=== PATIENT | male | born 1950 | race Caucasian/White ===

== ENCOUNTER 2017-03-01 13:01 | Emergency (ER) | payer MEDICARE, OTHER ==
[2017-03-01] MEDS ORDERED: SODIUM CHLORIDE 0.9% 1,000 ML IV ONE (13:33)
[2017-03-01 13:36] LABS: Glucose,Whole Blood 121 mg/dL (75-99)
--- NOTE | 2017-03-01 13:38 | ED ---
Fall HPI - General Chief Complaint: Fall Stated Complaint: syncope Time Seen by Provider: 03/01/17 13:27 Source: patient, EMS Mode of arrival: EMS - History of Present Illness Initial Comments: He fell today, he hit his head and then he passed out he was on his way to [employer] actually this is when he fell then he threw up on himself. He denies any palpitation he denies any chest pain no shortness of breath now complaining about the pain in the cervical spine area no other injuries from the fall no injuries to the back or upper extremity or the lower extremity. He has a history of passing out similarly in the past right now has some mom headache and the neck pain apart from that no other complaints at all - Related Data Home Medications Medication Instructions Recorded Confirmed No Known Home Medications [No 03/01/17 03/01/17 Known Home Medications] Allergies Allergy/AdvReac Type Severity Reaction Status Date / Time No Known Allergies Allergy Verified 03/01/17 14:04 Review of Systems ROS Statement: Those systems with pertinent positive or pertinent negative responses have been documented in the HPI. ROS Other: All systems not noted in ROS Statement are negative. Past Medical History Past Medical History: No Reported History History of Any Multi-Drug Resistant Organisms: None Reported Past Surgical History: Orthopedic Surgery Additional Past Surgical History / Comment(s): wrist surgery Past Psychological History: No Psychological Hx Reported Smoking Status: Never smoker Past Alcohol Use History: None Reported Past Drug Use History: None Reported General Exam - General Exam Comments Initial Comments: General: The patient is awake and alert, in no distress, and does not appear acutely ill. GCS is 15 Skin: Skin is warm and dry and no rashes or lesions are noted. Eye: Pupils are equal, round and reactive to light, extra-ocular movements are intact; there is normal conjunctiva bilaterally. Ears, nose, mouth and throat: There are moist mucous membranes and no oral lesions. Neck: The neck is tender at C5 and C6, no scalp laceration noticed no hematoma no ecchymosis Cardiovascular: There is a regular rate and rhythm. No murmur, rub or gallop is appreciated. Respiratory: To auscultation bilateral, no wheezing no rhonchi no distress respiratory castellon noticed Gastrointestinal: Soft, non-distended, non-tender abdomen without masses or organomegaly noted. There is no rebound or guarding present. Bowel sounds are unremarkable. Back: There is no tenderness to palpation in the midline. There is no obvious deformity. Musculoskeletal: Normal ROM, no tenderness, There is no pedal edema. There is no calf tenderness or swelling. No cords were appreciated. Neurological: CN II-XII intact, Cranial nerves III through XII are intact. There are no obvious motor or sensory deficits. Coordination appears grossly intact. Speech is normal. Psychiatric: Cooperative, appropriate mood & affect, normal judgment. Limitations: no limitations Course Vital Signs 03/01/17 03/01/17 03/01/17 13:08 13:48 14:55 Temperature 97.5 F L Pulse Rate 89 90 91 Respiratory 16 18 18 Rate Blood Pressure 114/60 112/58 125/71 O2 Sat by Pulse 99 98 97 Oximetry 03/01/17 03/01/17 15:48 17:47 Temperature 97.6 F 98.0 F Pulse Rate 93 85 Respiratory 16 16 Rate Blood Pressure 143/88 138/78 O2 Sat by Pulse 100 100 Oximetry Him EKG is normal sinus rhythm ventricular rate is 90 AK interval is 162 QRS duration is 96 QT/QTc QTc is 380/12/26/[address] elevations sort of picture into 3 and aVF and then on now D5 V4 and V6 but is very similar to his old EKG and patient himself has no chest pain Mid CT CT of cervical spine CBC, troponin those were all negative he feels better, he was advised to make sure he keeps himself well hydrated there is no orthostatic hypotension education and counseling was done he be discharged home to follow up with his family doctor Medical Decision Making - Lab Data Result diagrams: 03/01/17 13:17 03/01/17 13:17 Lab Results 03/01/17 03/01/17 03/01/17 Range/Units 13:16 13:17 13:17 WBC 6.4 (3.8-10.6) k/uL RBC 4.73 (4.30-5.90) m/uL Hgb 15.1 (13.0-17.5) gm/dL Hct 43.6 (39.0-53.0) % MCV 92.0 (80.0-100.0) fL MCH 31.8 (25.0-35.0) pg MCHC 34.6 (31.0-37.0) g/dL RDW 13.4 (11.5-15.5) % Plt Count 250 (150-450) k/uL Neutrophils % 67 % Lymphocytes % 25 % Monocytes % 4 % Eosinophils % 1 % Basophils % 1 % Neutrophils # 4.2 (1.3-7.7) k/uL Lymphocytes # 1.6 (1.0-4.8) k/uL Monocytes # 0.2 (0-1.0) k/uL Eosinophils # 0.1 (0-0.7) k/uL Basophils # 0.0 (0-0.2) k/uL Sodium 138 (137-145) mmol/L Potassium 4.4 (3.5-5.1) mmol/L Chloride 103 (98-107) mmol/L Carbon Dioxide 18 L (22-30) mmol/L Anion Gap 17 mmol/L BUN 17 (9-20) mg/dL Creatinine 0.80 (0.66-1.25) mg/dL Est GFR (MDRD) Af Amer >60 (>60 ml/min/1.73 sqM) Est GFR (MDRD) Non-Af >60 (>60 ml/min/1.73 sqM) Glucose 121 H (74-99) mg/dL POC Glucose (mg/dL) 121 H (75-99) mg/dL POC Glu Communication Engineer ID Yvonne Jasso Calcium 9.8 (8.4-10.2) mg/dL Total Bilirubin 1.4 H (0.2-1.3) mg/dL AST 29 (17-59) U/L ALT 33 (21-72) U/L Alkaline Phosphatase 81 (38-126) U/L Troponin I (0.000-0.034) ng/mL Total Protein 7.8 (6.3-8.2) g/dL Albumin 4.7 (3.5-5.0) g/dL 03/01/17 Range/Units 13:17 WBC (3.8-10.6) k/uL RBC (4.30-5.90) m/uL Hgb (13.0-17.5) gm/dL Hct (39.0-53.0) % MCV (80.0-100.0) fL MCH (25.0-35.0) pg MCHC (31.0-37.0) g/dL RDW (11.5-15.5) % Plt Count (150-450) k/uL Neutrophils % % Lymphocytes % % Monocytes % % Eosinophils % % Basophils % % Neutrophils # (1.3-7.7) k/uL Lymphocytes # (1.0-4.8) k/uL Monocytes # (0-1.0) k/uL Eosinophils # (0-0.7) k/uL Basophils # (0-0.2) k/uL Sodium (137-145) mmol/L Potassium (3.5-5.1) mmol/L Chloride (98-107) mmol/L Carbon Dioxide (22-30) mmol/L Anion Gap mmol/L BUN (9-20) mg/dL Creatinine (0.66-1.25) mg/dL Est GFR (MDRD) Af Amer (>60 ml/min/1.73 sqM) Est GFR (MDRD) Non-Af (>60 ml/min/1.73 sqM) Glucose (74-99) mg/dL POC Glucose (mg/dL) (75-99) mg/dL POC Glu Communication Engineer ID Calcium (8.4-10.2) mg/dL Total Bilirubin (0.2-1.3) mg/dL AST (17-59) U/L ALT (21-72) U/L Alkaline Phosphatase (38-126) U/L Troponin I <0.012 (0.000-0.034) ng/mL Total Protein (6.3-8.2) g/dL Albumin (3.5-5.0) g/dL Disposition Clinical Impression: Fall, Head injury, Neck injury, Syncope Disposition: HOME SELF-CARE Instructions: Fall Prevention for Older Adults (ED) Referrals: Tony Vaughan DO [Primary Care Provider] - 1-2 days
[2017-03-01 13:51] LABS: Basophils % (A) 1 %; CH 31.8; CHCM 34.7; Eosinophils # (A) 0.1 k/uL (0-0.7); Eosinophils % (A) 1 %; HCT 43.6 % (39.0-53.0); HDW 2.37; HGB 15.1 gm/dL (13.0-17.5); Luc # (Auto) 0.18; Luc % (Auto) 3; Lymphocytes # (A) 1.6 k/uL (1.0-4.8); Lymphocytes % (A) 25 %; MCH 31.8 pg (25.0-35.0); MCHC 34.6 g/dL (31.0-37.0); Mean Platelet Volume 7.4; Monocytes # (A) 0.2 k/uL (0-1.0); Monocytes % (A) 4 %; Neutrophils # (A) 4.2 k/uL (1.3-7.7); Neutrophils % (A) 67 %; RBC 4.73 m/uL (4.30-5.90); RDW 13.4 % (11.5-15.5); WBC 6.4 k/uL (3.8-10.6); WBC (Perox) 5.93
[2017-03-01 14:21] LABS: ALT 33 U/L (21-72); AST 29 U/L (17-59); Alkaline Phosphatase 81 U/L (38-126); Anion Gap 17 mmol/L; Blood Urea Nitrogen 17 mg/dL (9-20); Calcium 9.8 mg/dL (8.4-10.2); Carbon Dioxide 18 mmol/L (22-30); Chloride 103 mmol/L (98-107); Glucose 121 mg/dL (74-99); Non-African American GFR(MDRD) >60 (>60 ml/min/1.73 sqM); Sodium 138 mmol/L (137-145); Total Bilirubin 1.4 mg/dL (0.2-1.3); Total Protein 7.8 g/dL (6.3-8.2)
--- NOTE | 2017-03-01 14:32 | CT ---
EXAMINATION TYPE: CT brain alyssa valdes DATE OF EXAM: 03/01/2017 COMPARISON: NONE HISTORY: Fall injury today with headache and neck pain. CT DLP: 1326.50 mGycm. Automated Exposure Control for Dose Reduction was Utilized. TECHNIQUE: CT scan of the head and cervical spine are performed without contrast. FINDINGS: There is no acute intracranial hemorrhage, mass effect, or midline shift identified. The ventricles and sulci are within normal limits in size for patient's age. There is small to moderate -sized right parietal acute scalp hematoma near axial image 42. Adjacent calvarium is intact. The florencio bes are intact and the visualized sinuses are clear. There is moderate mucosal thickening involving e thmoid sinuses. Remainder of paranasal sinuses are clear. The globes are intact bilaterally. Cervical spine is visualized in its entirety from C1 through upper thoracic levels and demonstrates s traightened alignment without evidence of acute fracture or dislocation. Prevertebral soft tissue ap pears within normal limits. The C1-C2 articulation is within normal limits on the coronal images. Vertebral body heights are maintained. There is mild spurring and disc space narrowing C5-C6 level. T here is mild to moderate spurring and disc space narrowing C6-C7 level. Review of axial images show s ome multilevel right-sided uncovertebral facet degenerative changes. Visualized lung apices are clear . IMPRESSION: 1. There is no acute fracture or dislocation evident in the cervical spine. 2. No acute intracranial hemorrhage or midline shift is seen. Small to moderate size acute left parie saulo scalp hematoma incidentally noted.
[2017-03-01 14:38] LABS: Potassium 4.4 mmol/L (3.5-5.1)
--- NOTE | 2017-03-01 15:23 | XR ---
EXAMINATION TYPE: XR chest 2V DATE OF EXAM: 03/01/2017 COMPARISON: NONE HISTORY: Fall injury and syncope with pain. TECHNIQUE: Frontal and lateral views of the chest are obtained. FINDINGS: Underlying emphysematous change is felt present. There is no focal air space opacity, pleu ral effusion, or pneumothorax seen. The cardiac silhouette size is upper limits of normal. Multileve l minimal spurring in thoracic spine is present. IMPRESSION: Chronic changes without acute pulmonary process.
[2017-03-01 15:49] VITALS: RESP 16
[2017-03-01 17:51] VITALS: BP 138/78; PULSE 85; TEMP 98
== END 2017-03-01 18:25 | disposition home or self-care (01) ==
LOC: EC 13:01
DX: S09.90XA Unspecified injury of head, initial encounter (principal); S19.9XXA Unspecified injury of neck, initial encounter; R55 Syncope and collapse; R51 Headache; M54.2 Cervicalgia; W01.10XA Fall on same level from slipping, tripping and stumbling with subsequent striking against unspecified object, initial encounter; Y92.89 Other specified places as the place of occurrence of the external cause
CPT/HCPCS: 36415; 70450; 71020; 72125; 80053; 84484; 85025; 93005; 96360; 99284

== ENCOUNTER 2017-09-11 06:21 | Day surgery (SDC) | payer MEDICARE, OTHER ==
[2017-09-09 10:58] VITALS: BMI 32.5
[~2017-09-11 06:21] MED LIST: ALPRAZolam 0.25 MG TAB PO PRN; ALPRAZolam 0.5 MG TAB PO PRN; ASPIRIN 325 MG TAB PO STA; ATORVASTATIN 80 MG TAB PO STA; NITROGLYCERIN SL TABS 0.4 MG TAB SUBLINGUAL PRN; SODIUM CHLORIDE 0.9% 1,000 ML in EMPTY BAG 1 BAG IV ONE
[2017-09-11 07:05] VITALS: BP 158/83; PULSE 77; RESP 20; TEMP 97.9
== END 2017-09-11 09:20 | disposition home or self-care (01) ==
LOC: CATHCVL 06:21
PROVIDERS: ATTEND Internal Medicine Interventional Cardiology
DX: I25.10 Atherosclerotic heart disease of native coronary artery without angina pectoris (principal)

== ENCOUNTER 2017-09-12 06:31 | Day surgery (SDC) | payer MEDICARE, OTHER ==
[2017-09-12] MEDS ORDERED: ASPIRIN 325 MG TAB PO STA (06:33)
[2017-09-12] MEDS ORDERED: ALPRAZolam 0.25 MG TAB PO PRN (06:33)
[2017-09-12] MEDS ORDERED: ATORVASTATIN 80 MG TAB PO STA (06:33)
[2017-09-12] MEDS ORDERED: SODIUM CHLORIDE 0.9% 1,000 ML in EMPTY BAG 1 BAG IV ONE (06:33)
[2017-09-12] MEDS ORDERED: NITROGLYCERIN SL TABS 0.4 MG TAB SUBLINGUAL PRN (06:33)
[2017-09-12] MEDS ORDERED: ALPRAZolam 0.5 MG TAB PO PRN (06:33)
[2017-09-12] MEDS ORDERED: MIDAZOLAM 2 MG/2 ML VIAL ONE (07:21)
[2017-09-12] MEDS ORDERED: LIDOCAINE 2% INJ 20 MG/ML (20 ML MDV) ONE (07:21)
[2017-09-12] MEDS ORDERED: diphenhydrAMINE 50 MG/ML 1 ML VIAL ONE (07:21)
[2017-09-12] MEDS ORDERED: SODIUM CHLORIDE 0.9% 1,000 ML IV ONE (07:39)
[2017-09-12] MEDS ORDERED: diphenhydrAMINE 50 MG/ML 1 ML VIAL IVP ONE (07:51)
[2017-09-12] MEDS ORDERED: MIDAZOLAM 2 MG/2 ML VIAL IVP ONE (07:51)
[2017-09-12] MEDS ORDERED: LIDOCAINE 2% INJ 20 MG/ML SQ ONE ×2 (07:54)
[2017-09-12] MEDS ORDERED: fentaNYL (PF) 50 MCG/ML 2 ML AMP ONE (07:57)
[2017-09-12] MEDS: fentaNYL (PF) 50 MCG/ML 2 ML AMP IVP ONE ×2 (07:58→08:48)
[2017-09-12] MEDS ORDERED: BIVALIRUDIN BOLUS 250 MG/50 ML IV ONE (07:59)
[2017-09-12] MEDS ORDERED: BIVALIRUDIN 250 MG in SODIUM CHLORIDE 0.9% 50 ML IV ONE ×2 (08:00→08:36)
[2017-09-12] MEDS: NITROGLYCERIN 1000MCG/10ML SYRINGE INTRACORON ONE ×4 (08:11→08:42)
[2017-09-12] MEDS ORDERED: niCARdipine 25 MG/10 ML VIAL ONE (08:11)
[2017-09-12] MEDS ORDERED: CLOPIDOGREL 75 MG TAB ONE (08:46)
[2017-09-12] MEDS ORDERED: CLOPIDOGREL 75 MG TAB PO ONE (08:55)
[2017-09-12] MEDS ORDERED: IOHEXOL 350 MG/ML 125ML BOTTLE INJ ONE (08:55)
[2017-09-12] MEDS ORDERED: NITROGLYCERIN 0.4 MG SUBLINGUAL PRN (09:10)
--- NOTE | 2017-09-12 09:47 | LTR ---
September 12, 2017 Re: Daniel Pyle Dear Tony: Mr. Daniel Pyle underwent successful angioplasty and stenting of the mid LAD with good angiographic results and without any complication. I want to thank you for allowing me to participate in his care and please do not hesitate to call if you have any question or concern. Sincerely, MD LINDA Esquivel / [place]: [id number] /
--- NOTE | 2017-09-12 11:23 | PTCA ---
PERCUTANEOUSTRANS CORORONARY ANGIOGRAPHY DATE OF SERVICE: 09/12/2017 PERFORMING PHYSICIAN: Carlos Guillen MD, account relationship manager. PROCEDURE PERFORMED: Successful stenting of the mid to distal LAD using 2.25 x 12 mm Promus Premier drug- eluting stent with good angiographic results. INDICATION: This is a pleasant 67-year-old gentleman who presented to the hospital a few weeks ago with acute inferior ST-elevation myocardial infarction and underwent a heart catheterization at that point and stenting of the left circumflex, which was the culprit lesion. He was found to have severe disease involving the mid to distal LAD and he was brought today for intervention on the LAD. APPROACH: Right common femoral artery. COMPLICATION: None. LEVEL OF SEDATION: Moderate with a sedation length of 67 minutes. PROCEDURE DESCRIPTION: After obtaining an informed consent, the patient was brought to cardiac refuse laborer. The right common femoral artery was cannulated using micropuncture technique, the micropuncture wire passed easily then I placed a 6-Indonesian sheath in the right common femoral artery. After that anticoagulation was initiated using Angiomax. I took an XB3.5 LAD guide and the left main was engaged. A whisper wire was used to wire the LAD, but I was unable to cross the critical lesion in the mid to distal LAD using the whisper wire and I ended with dissection in that segment where the patient did not have any chest discomfort, but about [address]-segment elevation in the anterior leads. Finally I was able to cross it using a choice PT wire with the backup support of 45 angled Supercross catheter. After that I did balloon angioplasty of the LAD using 2.0 x 12 mm balloon. Subsequently, I tried to advance 2.25 x 12 mm Promus Premier drug-eluting stent but the stent will not make the turn in the proximal LAD because of the tortuosity and calcifications. I was able to get the stent with adjunctive use of the Guidezilla. The stent was positioned under fluoroscopy guidance and deployed under 12 atmospheres for 20 seconds. The following angiogram showed good angiographic results without perforation and without dissection with good flow n the LAD. The procedure was completed without any complication. POSTPROCEDURE MANAGEMENT: 1. Dual anti-platelet therapy. 2. Risk factors modifications. 3. Follow up with the patient. MMODL / IJN: [id number] /
[2017-09-12] MEDS ORDERED: ATORVASTATIN 80 MG TAB ONE ×2 (20:30→20:33)
[2017-09-12] MEDS ORDERED: METOPROLOL TARTRATE 25 MG TAB ONE (20:30)
[2017-09-13] MEDS: METOPROLOL TARTRATE 25 MG TAB PO SCH ×2 (00:23→08:07)
[2017-09-13 06:48] LABS: Basophils # (A) 0.1 k/uL (0-0.2); Basophils % (A) 1 %; CH 31.1; CHCM 33.8; Eosinophils # (A) 0.2 k/uL (0-0.7); Eosinophils % (A) 3 %; HGB 13.2 gm/dL (13.0-17.5); Luc # (Auto) 0.17; Luc % (Auto) 2; Lymphocytes # (A) 1.6 k/uL (1.0-4.8); Lymphocytes % (A) 22 %; MCH 30.6 pg (25.0-35.0); MCHC 33.1 g/dL (31.0-37.0); MCV 92.5 fL (80.0-100.0); Mean Platelet Volume 6.6; Monocytes # (A) 0.4 k/uL (0-1.0); Monocytes % (A) 5 %; Neutrophils % (A) 67 %; RBC 4.32 m/uL (4.30-5.90); RDW 13.1 % (11.5-15.5); WBC 7.4 k/uL (3.8-10.6); WBC (Perox) 7.42
[2017-09-13 07:00] LABS: Anion Gap 9 mmol/L; Blood Urea Nitrogen 17 mg/dL (9-20); Calcium 9.4 mg/dL (8.4-10.2); Carbon Dioxide 29 mmol/L (22-30); Chloride 99 mmol/L (98-107); Glucose 92 mg/dL (74-99); Non-African American GFR(MDRD) >60 (>60 ml/min/1.73 sqM); Potassium 4.2 mmol/L (3.5-5.1); Sodium 137 mmol/L (137-145)
[2017-09-13] MEDS ORDERED: PANTOPRAZOLE 40 MG TABLET PO SCH (07:30)
[2017-09-13 07:57] VITALS: BP 132/87; PULSE 91; RESP 18; TEMP 97.6
[2017-09-13] MEDS ORDERED: CLOPIDOGREL 75 MG TAB PO SCH (09:00)
[2017-09-13] MEDS ORDERED: ASPIRIN 325 MG TAB PO SCH (09:00)
--- NOTE | 2017-09-13 09:56 | DS ---
DISCHARGE SUMMARY ADMISSION DATE: September 12, 2017. DISCHARGE DATE: September 13, 2017 BRIEF HISTORY: This is a pleasant 67-year-old gentleman who was admitted to the hospital yesterday and underwent successful balloon angioplasty and stenting of the mid LAD with good angiographic results and without any complication. The procedure was performed from the right groin which is soft and nontender and without any bruises. The patient is going to be discharged home on dual anti-platelet therapy and I will follow up with the patient next week in the office. MMODL / IJN: [id number] /
[2017-09-13] MEDS ORDERED: ATORVASTATIN 80 MG TAB PO SCH (21:00)
== END 2017-09-13 11:02 | disposition home or self-care (01) ==
LOC: CATHCVL 06:31 → 6SEL 08:50 → CATHCVL 09-13 11:02
PROVIDERS: ATTEND Internal Medicine Interventional Cardiology
DX: I25.10 Atherosclerotic heart disease of native coronary artery without angina pectoris (principal); I25.84 Coronary atherosclerosis due to calcified coronary lesion; I10 Essential (primary) hypertension; E78.5 Hyperlipidemia, unspecified; Z79.02 Long term (current) use of antithrombotics/antiplatelets; Z79.82 Long term (current) use of aspirin; Z79.899 Other long term (current) drug therapy
CPT/HCPCS: 80048; 85025; C9600; C1769 ×4; C1760 ×2; C1887 ×3; C1725; C1894 ×2; C1874; J2001; J2250; J1200; J3010; J0583; Q9967

== ENCOUNTER 2017-11-19 19:24 | Emergency (ER) | payer OTHER, MEDICARE ==
[2017-11-19 19:39] VITALS: RESP 18
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
--- NOTE | 2017-11-19 20:32 | XR ---
EXAMINATION TYPE: XR shoulder complete RT DATE OF EXAM: 11/19/2017 COMPARISON: NONE HISTORY: Shoulder pain TECHNIQUE: 3 views FINDINGS: There is slightly impacted fracture of the right humeral neck. There is no dislocation. Acr omioclavicular joint is intact. Scapula appears intact. IMPRESSION: Acute fracture of the right humeral neck.
[2017-11-19] MEDS ORDERED: IBUPROFEN 800 MG TAB PO STA (20:42)
[2017-11-19 20:59] VITALS: BP 130/62; PULSE 91; TEMP 98.5
== END 2017-11-19 20:58 | disposition home or self-care (01) ==
LOC: EC 19:24
DX: S42.291A Other displaced fracture of upper end of right humerus, initial encounter for closed fracture (principal); V77.5XXA Driver of bus injured in collision with fixed or stationary object in traffic accident, initial encounter; Y92.89 Other specified places as the place of occurrence of the external cause
CPT/HCPCS: 99284

== ENCOUNTER 2024-07-10 17:00 | Emergency (ER) | payer MEDICARE, OTHER ==
[2024-07-10 18:11] LABS: Basophils % (A) 0 %; Eosinophils # (A) 0.1 k/uL (0-0.7); Eosinophils % (A) 1 %; HCT 46.6 % (39.0-53.0); Lymphocytes # (A) 1.2 k/uL (1.0-4.8); Lymphocytes % (A) 14 %; MCH 30.4 pg (25.0-35.0); MCHC 32.2 g/dL (31.0-37.0); MCV 94.6 fL (80.0-100.0); Mean Platelet Volume 7.3; Monocytes # (A) 0.3 k/uL (0-1.0); Monocytes % (A) 3 %; Neutrophils # (A) 6.7 k/uL (1.3-7.7); Neutrophils % (A) 80 %; Platelet Count 333 k/uL (150-450); RBC 4.93 m/uL (4.30-5.90); RDW 13.5 % (11.5-15.5); WBC 8.4 k/uL (3.8-10.6)
[2024-07-10 18:20] LABS: Partial Thromboplastin Time 25.1 sec (22.0-30.0); Prothrombin Time 10.9 sec (10.0-12.5)
[2024-07-10 18:28] LABS: ALT 22 U/L (4-49); African American GFR (CKD) >90 (>60 ml/min/1.73 sqM); Albumin 4.4 g/dL (3.5-5.0); Alcohol <10 mg/dL; Anion Gap 13 mmol/L; Blood Urea Nitrogen 16 mg/dL (9-20); Calcium 9.5 mg/dL (8.4-10.2); Carbon Dioxide 26 mmol/L (22-30); Chloride 99 mmol/L (98-107); Creatine Kinase 56 U/L (55-170); Glucose 146 mg/dL (74-99); Non-African American GFR(CKD) 84 (>60 ml/min/1.73 sqM); Sodium 138 mmol/L (137-145); Total Bilirubin 1.5 mg/dL (0.2-1.3); Total Protein 7.9 g/dL (6.3-8.2)
[2024-07-10 18:31] LABS: Magnesium 1.9 mg/dL (1.6-2.3); Potassium 4.3 mmol/L (3.5-5.1)
[2024-07-10 18:32] LABS: AST 33 U/L (17-59); Alkaline Phosphatase 80 U/L (38-126)
--- NOTE | 2024-07-10 18:42 | CT ---
EXAMINATION TYPE: CT brain cspine wo con CT DLP: 1483.6 mGycm, Automated exposure control for dose reduction was used. DATE OF EXAM: 07/10/2024 6:12 PM COMPARISON: 03/01/2017 CLINICAL INDICATION: Male, 74 years old with history of syncope; Syncope. TECHNIQUE: Brain: Multiple axial CT images of the brain were obtained without IV contrast. Cspine: Axial CT images from the skull base to the inferior aspect of T2 we obtained without intraven ous contrast. Coronal and sagittal reformatted images were also reviewed. . FINDINGS: Brain: Extra-axial spaces: No abnormal extra-axial fluid collections. Ventricular system: Within normal limits Cerebral parenchyma: No acute intraparenchymal hemorrhage or mass effect. The arreola-white junction is well differentiated. Scattered hypoattenuating areas are seen within the white matter. Cerebellum: Unremarkable. Mass effect: No evidence of midline shift. Intracranial vasculature: Atherosclerotic calcifications of the intracranial vessels. Soft tissues: Normal. Calvarium/osseous structures: No depressed skull fracture. Paranasal sinuses and mastoid air cells: Clear. Visualized orbits: Orbital contents are intact. Cervical spine: Fracture: None. Osseous structures: Multilevel degenerative disc disease changes with endplate spurring and disc oste ophyte complex's. Vertebral alignment: Within normal limits. Spinal canal/Neural Foramina: No evidence of significant spinal canal narrowing. No evidence for sign ificant neural foraminal stenosis. Neck soft tissues: Prevertebral soft tissues are within normal limits. Other: The airway is patent. The lung apices are clear. IMPRESSION: 1. No acute intracranial process. 2. Nonspecific white matter changes, likely secondary to chronic small vessel ischemic disease. 3. No evidence of cervical spine fracture. 4. Mild to moderate multilevel degenerative disc disease. [facility], , 07/10/2024 6:40 PM
--- NOTE | 2024-07-10 18:42 | XR ---
EXAMINATION TYPE: XR chest 2V DATE OF EXAM: 07/10/2024 6:16 PM CLINICAL INDICATION: Male, 74 years old with history of syncope; [facility] COMPARISON: Chest radiographs from 03/01/2017 TECHNIQUE: XR chest 2V Frontal view of the chest. FINDINGS: Lungs/Pleura: There is no evidence of pleural effusion, focal consolidation, or pneumothorax. Pulmonary vascularity: Unremarkable. Heart/mediastinum: Cardiomediastinal silhouette is enlarged. Musculoskeletal: No acute osseous pathology. IMPRESSION: Low lung volumes with a generalized hazy appearance which could represent atelectasis versus pulmonar y edema correlate with serum BNP. [facility], , 07/10/2024 6:40 PM
[2024-07-10] MEDS: SODIUM CHLORIDE 0.9% 500 ML 500 ML IV STA (18:54)
[2024-07-10 19:06] LABS: Lactic Acid, Venous 2.6 mmol/L (0.7-2.0)
--- NOTE | 2024-07-10 19:19 | ED ---
Dizziness HPI - General Chief Complaint: Syncope Stated Complaint: Syncope,Back pain Time Seen by Provider: 07/10/24 17:13 Source: patient, EMS Mode of arrival: EMS Limitations: no limitations - History of Present Illness Initial Comments: 74-year-old male brought in after syncopal episode. Patient reports that he was walking home from [employer] when he started to feel dizzy. Difficult to determine if the patient then sat down or continued walking, however a syncopal episode did occur. Per EMS the patient was unconscious for less than a minute. Upon ar rival patient is very diaphoretic and has delayed answers, although he is able to answer appropriately. He is A and O x 3. He is generally weak. He denies any chest pain or difficulty breathing. States that he still a bit dizzy. He is also nauseous. No abdominal pain. No headache. No fever. - Related Data Previous Rx's Medication Instructions Recorded Aspirin 325 mg PO DAILY #30 tab 08/16/17 Atorvastatin [Lipitor] 80 mg PO HS #30 tab 08/16/17 Clopidogrel [Plavix] 75 mg PO DAILY #30 tab 08/16/17 Metoprolol Tartrate [Lopressor] 25 mg PO BID #60 tab 08/16/17 Nitroglycerin Sl Tabs [Nitrostat] 0.4 mg SUBLINGUAL Q5M PRN #20 tab 08/16/17 Pantoprazole [Protonix] 40 mg PO AC-BRKFST #30 tablet. 08/16/17 HYDROcodone/APAP 5-325MG [[place] 1 tab PO Q6HR PRN #12 tab 11/19/17 5-325] Ibuprofen [Motrin] 600 mg PO Q8HR PRN #24 tab 11/19/17 Allergies Allergy/AdvReac Type Severity Reaction Status Date / Time No Known Allergies Allergy Verified 11/19/17 19:56 Review of Systems ROS Statement: Those systems with pertinent positive or pertinent negative responses have been documented in the HPI. ROS Other: All systems not noted in ROS Statement are negative. Past Medical History Past Medical History: Myocardial Infarction (MT) Additional Past Medical History / Comment(s): 08/13/17 STEMI Last Myocardial Infarction Date:: 08/13/17 History of Any Multi-Drug Resistant Organisms: None Reported Past Surgical History: Appendectomy, Heart Catheterization With Stent Additional Past Surgical History / Comment(s): 08-13-17 HEART CATH W/ STENT TO LT CIRC. Past Anesthesia/Blood Transfusion Reactions: No Reported Reaction Date of Last Stent Placement:: 08/13/17 Past Psychological History: No Psychological Hx Reported Past Alcohol Use History: None Reported Past Drug Use History: None Reported - Past Family History Father History Unknown: Yes Mother History Unknown: Yes General Exam Limitations: no limitations General appearance: lethargic Head exam: Present: atraumatic, normocephalic, normal inspection Eye exam: Present: normal appearance, PERRL, EOMI. Absent: periorbital swelling Neck exam: Present: normal inspection. Absent: meningismus Respiratory exam: Present: normal lung sounds bilaterally. Absent: respiratory distress, wheezes, rales, rhonchi, stridor Cardiovascular Exam: Present: regular rate, normal rhythm, normal heart sounds. Absent: systolic murmur, diastolic murmur, rubs, gallop, clicks Neurological exam: Present: alert, oriented X3 (Slow to respond but can answer correctly) Expanded Eye Response: (3) open to voice Motor Response: (6) obeys commands Verbal Response: (5) oriented Skin exam: Present: diaphoretic Course Vital Signs 07/10/24 07/10/24 07/10/24 17:05 17:09 18:55 Temperature 97.8 F 97.8 F Pulse Rate 89 88 83 Respiratory 16 16 14 Rate Blood Pressure 107/64 105/62 124/75 O2 Sat by Pulse 95 97 98 Oximetry 07/10/24 22:17 Temperature 98.1 F Pulse Rate 100 Respiratory 18 Rate Blood Pressure 131/73 O2 Sat by Pulse 98 Oximetry Medical Decision Making - Medical Decision Making Was pt. sent in by a medical professional or institution (, PA, SURGEON ASSISTANT, urgent care, hospital, or shelter...) When possible be specific @ -No Did you speak to anyone other than the patient for history (EMS, parent, family, police, friend...)? What history was obtained from this source @ -No Did you review nursing and triage notes (agree or disagree)? Why? @ -I reviewed and agree with nursing and triage notes Were old charts reviewed (outside hosp., previous admission, EMS record, old EKG, old radiological studies, urgent care reports/EKG's, shelter records)? Report findings @ -No old charts were reviewed Differential Diagnosis (chest pain, altered mental status, abdominal pain women, abdominal pain men, vaginal bleeding, weakness, fever, dyspnea, syncope, headache, dizziness, GI bleed, back pain, seizure, CVA, palpatations, mental health, musculoskeletal)? @ -MDM Differential Syncope: Valvular disease, hypertrophic cardiomyopathy, pulmonary embolism, tamponade, tachycardia, bradycardia, MT, hypovolemia, hemorrhage, dissection, anemia, intracranial hemorrhage, seizure, hypoglycemia, carbon monoxide poisoning this is not meant to be an all-inclusive list. EKG interpreted by me (3pts min.). @ -EKG shows sinus rhythm ventricular rate 85. AL interval 177. QRS 114. QT 380. QTc 423. X-rays interpreted by me (1pt min.). @ -Chest x-ray shows low lung volumes with a generalized hazy appearance which could represent atelectasis versus pulmonary edema CT interpreted by me (1pt min.). @ -CT shows no acute intracranial process. Nonspecific white matter changes likely secondary to chronic small vessel ischemic disease. No evidence of cervical spine fracture. Mild to moderate multilevel degenerative disc disease. U/S interpreted by me (1pt. min.). @ -None done What testing was considered but not performed or refused? (CT, X-rays, U/S, labs)? Why? @ -None What meds were considered but not given or refused? Why? @ -None Did you discuss the management of the patient with other professionals (professionals i.e. , PA, SURGEON ASSISTANT, lab, RT, psych nurse, social insurance specialist, upsetting machine operator, teacher, property officer, upper caser)? Give summary @ -No Was smoking cessation discussed for >3mins.? @ -No Was critical care preformed (if so, how long)? @ -No Were there social determinants of health that impacted care today? How? (Homelessness, low income, unemployed, alcoholism, drug addiction, transportation, low edu. Level, literacy, decrease access to med. care, retirement, rehab)? @ -No Was there de-escalation of care discussed even if they declined (Discuss DNR or withdrawal of care, Hospice)? DNR status @ -No What co-morbidities impacted this encounter? (DM, HTN, Smoking, COPD, CAD, Cancer, CVA, ARF, Chemo, Hep., AIDS, mental health diagnosis, sleep apnea, morbid obesity)? @ -None Was patient admitted / discharged? Hospital course, mention meds given and route, prescriptions, significant lab abnormalities, going to OR and other pertinent info. @ -74-year-old male presenting for evaluation after syncopal episode. During the initial examination the patient is slow to respond but answers appropriately. He is also generally weak. Started on IV fluids. No leukocytosis or anemia. Lactic acid 2.6 and ketones 1+, patient is receiving IV fluids. Negative urine toxicology and serum alcohol. Negative for influenza, RSV, COVID. Chest x-ray showed haziness but BNP is 180 and troponin is negative, does not appear consistent with CHF. Patient's vital signs are stable. Ammonia and creatinine kinase are WNL. CT shows no acute intracranial process or cervical spine fracture. On reassessment the patient is feeling much better. He is sitting up in a chair, conversing much easier, he is able to ambulate with his cane and no further assistance. He feels well and would like to go home. He is educated on today's findings. Discharged. Follow-up with PCP. Report back to ER with any new or worsening symptoms. Discussed return parameters and answered all questions. Patient conveyed verbal understanding and agreed to the plan. I discussed this case in detail with my attending Dr. Henderson Undiagnosed new problem with uncertain prognosis? @ -No Drug Therapy requiring intensive monitoring for toxicity (Heparin, Nitro, Insulin, Cardizem)? @ -No Were any procedures done? @ -No Diagnosis/symptom? @ -Dehydration, syncopal episode Acute, or Chronic, or Acute on Chronic? @ -Acute Uncomplicated (without systemic symptoms) or Complicated (systemic symptoms)? @ -Complicated Side effects of treatment? @ -No Exacerbation, Progression, or Severe Exacerbation? @ -No - Lab Data Result diagrams: 07/10/24 17:58 07/10/24 17:58 Lab Results 07/10/24 07/10/24 07/10/24 Range/Units 17:58 17:58 17:58 WBC 8.4 (3.8-10.6) k/uL RBC 4.93 (4.30-5.90) m/uL Hgb 15.0 (13.0-17.5) gm/dL Hct 46.6 (39.0-53.0) % MCV 94.6 (80.0-100.0) fL MCH 30.4 (25.0-35.0) pg MCHC 32.2 (31.0-37.0) g/dL RDW 13.5 (11.5-15.5) % Plt Count 333 (150-450) k/uL MPV 7.3 Neutrophils % 80 % Lymphocytes % 14 % Monocytes % 3 % Eosinophils % 1 % Basophils % 0 % Neutrophils # 6.7 (1.3-7.7) k/uL Lymphocytes # 1.2 (1.0-4.8) k/uL Monocytes # 0.3 (0-1.0) k/uL Eosinophils # 0.1 (0-0.7) k/uL Basophils # 0.0 (0-0.2) k/uL PT 10.9 (10.0-12.5) sec INR 1.0 (<1.2) APTT 25.1 (22.0-30.0) sec Sodium 138 (137-145) mmol/L Potassium 4.3 (3.5-5.1) mmol/L Chloride 99 (98-107) mmol/L Carbon Dioxide 26 (22-30) mmol/L Anion Gap 13 mmol/L BUN 16 (9-20) mg/dL Creatinine 0.86 (0.66-1.25) mg/dL Est GFR (CKD-EPI)AfAm >90 (>60 ml/min/1.73 sqM) Est GFR (CKD-EPI)NonAf 84 (>60 ml/min/1.73 sqM) Glucose 146 H (74-99) mg/dL Lactic Ac Sepsis Rflx Plasma Lactic Acid Ramon (0.7-2.0) mmol/L Calcium 9.5 (8.4-10.2) mg/dL Magnesium 1.9 (1.6-2.3) mg/dL Total Bilirubin 1.5 H (0.2-1.3) mg/dL AST 33 (17-59) U/L ALT 22 (4-49) U/L Alkaline Phosphatase 80 (38-126) U/L Ammonia (<30) umol/L Creatine Kinase 56 (55-170) U/L Troponin I (0.000-0.034) ng/mL NT-Pro-B Natriuret Pep pg/mL Total Protein 7.9 (6.3-8.2) g/dL Albumin 4.4 (3.5-5.0) g/dL Urine Color Urine Appearance (Clear) Urine pH (5.0-8.0) Ur Specific [place] (1.001-1.035) Urine Protein (Negative) Urine Glucose (UA) (Negative) Urine Ketones (Negative) Urine Blood (Negative) Urine Nitrite (Negative) Urine Bilirubin (Negative) Urine Urobilinogen (<2.0) mg/dL Ur Leukocyte Esterase (Negative) Urine RBC (0-5) /hpf Urine WBC (0-5) /hpf Ur Squamous Epith Cells (0-4) /hpf Urine Mucus (None) /hpf Urine Opiates Screen (NotDetected) Ur Oxycodone Screen (NotDetected) Urine Methadone Screen (NotDetected) Ur Barbiturates Screen (NotDetected) U Tricyclic Antidepress (NotDetected) Ur Phencyclidine Scrn (NotDetected) Ur Amphetamines Screen (NotDetected) U Methamphetamines Scrn (NotDetected) U Benzodiazepines Scrn (NotDetected) Urine Cocaine Screen (NotDetected) U Marijuana (THC) Screen (NotDetected) Serum Alcohol <10 mg/dL Influenza Type A (PCR) (Not Detectd) Influenza Type B (PCR) (Not Detectd) RSV (PCR) (Not Detectd) SARS-CoV-2 (PCR) (Not Detectd) 07/10/24 07/10/24 07/10/24 Range/Units 17:58 17:58 17:58 WBC (3.8-10.6) k/uL RBC (4.30-5.90) m/uL Hgb (13.0-17.5) gm/dL Hct (39.0-53.0) % MCV (80.0-100.0) fL MCH (25.0-35.0) pg MCHC (31.0-37.0) g/dL RDW (11.5-15.5) % Plt Count (150-450) k/uL MPV Neutrophils % % Lymphocytes % % Monocytes % % Eosinophils % % Basophils % % Neutrophils # (1.3-7.7) k/uL Lymphocytes # (1.0-4.8) k/uL Monocytes # (0-1.0) k/uL Eosinophils # (0-0.7) k/uL Basophils # (0-0.2) k/uL PT (10.0-12.5) sec INR (<1.2) APTT (22.0-30.0) sec Sodium (137-145) mmol/L Potassium (3.5-5.1) mmol/L Chloride (98-107) mmol/L Carbon Dioxide (22-30) mmol/L Anion Gap mmol/L BUN (9-20) mg/dL Creatinine (0.66-1.25) mg/dL Est GFR (CKD-EPI)AfAm (>60 ml/min/1.73 sqM) Est GFR (CKD-EPI)NonAf (>60 ml/min/1.73 sqM) Glucose (74-99) mg/dL Lactic Ac Sepsis Rflx Plasma Lactic Acid Ramon 2.6 H* (0.7-2.0) mmol/L Calcium (8.4-10.2) mg/dL Magnesium (1.6-2.3) mg/dL Total Bilirubin (0.2-1.3) mg/dL AST (17-59) U/L ALT (4-49) U/L Alkaline Phosphatase (38-126) U/L Ammonia 13 (<30) umol/L Creatine Kinase (55-170) U/L Troponin I <0.012 (0.000-0.034) ng/mL NT-Pro-B Natriuret Pep pg/mL Total Protein (6.3-8.2) g/dL Albumin (3.5-5.0) g/dL Urine Color Urine Appearance (Clear) Urine pH (5.0-8.0) Ur Specific [place] (1.001-1.035) Urine Protein (Negative) Urine Glucose (UA) (Negative) Urine Ketones (Negative) Urine Blood (Negative) Urine Nitrite (Negative) Urine Bilirubin (Negative) Urine Urobilinogen (<2.0) mg/dL Ur Leukocyte Esterase (Negative) Urine RBC (0-5) /hpf Urine WBC (0-5) /hpf Ur Squamous Epith Cells (0-4) /hpf Urine Mucus (None) /hpf Urine Opiates Screen (NotDetected) Ur Oxycodone Screen (NotDetected) Urine Methadone Screen (NotDetected) Ur Barbiturates Screen (NotDetected) U Tricyclic Antidepress (NotDetected) Ur Phencyclidine Scrn (NotDetected) Ur Amphetamines Screen (NotDetected) U Methamphetamines Scrn (NotDetected) U Benzodiazepines Scrn (NotDetected) Urine Cocaine Screen (NotDetected) U Marijuana (THC) Screen (NotDetected) Serum Alcohol mg/dL Influenza Type A (PCR) Not Detected (Not Detectd) Influenza Type B (PCR) Not Detected (Not Detectd) RSV (PCR) Not Detected (Not Detectd) SARS-CoV-2 (PCR) Not Detected (Not Detectd) 07/10/24 07/10/24 07/10/24 Range/Units 17:58 19:06 21:10 WBC (3.8-10.6) k/uL RBC (4.30-5.90) m/uL Hgb (13.0-17.5) gm/dL Hct (39.0-53.0) % MCV (80.0-100.0) fL MCH (25.0-35.0) pg MCHC (31.0-37.0) g/dL RDW (11.5-15.5) % Plt Count (150-450) k/uL MPV Neutrophils % % Lymphocytes % % Monocytes % % Eosinophils % % Basophils % % Neutrophils # (1.3-7.7) k/uL Lymphocytes # (1.0-4.8) k/uL Monocytes # (0-1.0) k/uL Eosinophils # (0-0.7) k/uL Basophils # (0-0.2) k/uL PT (10.0-12.5) sec INR (<1.2) APTT (22.0-30.0) sec Sodium (137-145) mmol/L Potassium (3.5-5.1) mmol/L Chloride (98-107) mmol/L Carbon Dioxide (22-30) mmol/L Anion Gap mmol/L BUN (9-20) mg/dL Creatinine (0.66-1.25) mg/dL Est GFR (CKD-EPI)AfAm (>60 ml/min/1.73 sqM) Est GFR (CKD-EPI)NonAf (>60 ml/min/1.73 sqM) Glucose (74-99) mg/dL Lactic Ac Sepsis Rflx Y Plasma Lactic Acid Ramon (0.7-2.0) mmol/L Calcium (8.4-10.2) mg/dL Magnesium (1.6-2.3) mg/dL Total Bilirubin (0.2-1.3) mg/dL AST (17-59) U/L ALT (4-49) U/L Alkaline Phosphatase (38-126) U/L Ammonia (<30) umol/L Creatine Kinase (55-170) U/L Troponin I (0.000-0.034) ng/mL NT-Pro-B Natriuret Pep 180 pg/mL Total Protein (6.3-8.2) g/dL Albumin (3.5-5.0) g/dL Urine Color Yellow Urine Appearance Cloudy (Clear) Urine pH 6.5 (5.0-8.0) Ur Specific [place] 1.023 (1.001-1.035) Urine Protein 1+ H (Negative) Urine Glucose (UA) Negative (Negative) Urine Ketones 1+ H (Negative) Urine Blood Negative (Negative) Urine Nitrite Negative (Negative) Urine Bilirubin Negative (Negative) Urine Urobilinogen 8.0 (<2.0) mg/dL Ur Leukocyte Esterase Negative (Negative) Urine RBC 1 (0-5) /hpf Urine WBC 4 (0-5) /hpf Ur Squamous Epith Cells 4 (0-4) /hpf Urine Mucus Many H (None) /hpf Urine Opiates Screen (NotDetected) Ur Oxycodone Screen (NotDetected) Urine Methadone Screen (NotDetected) Ur Barbiturates Screen (NotDetected) U Tricyclic Antidepress (NotDetected) Ur Phencyclidine Scrn (NotDetected) Ur Amphetamines Screen (NotDetected) U Methamphetamines Scrn (NotDetected) U Benzodiazepines Scrn (NotDetected) Urine Cocaine Screen (NotDetected) U Marijuana (THC) Screen (NotDetected) Serum Alcohol mg/dL Influenza Type A (PCR) (Not Detectd) Influenza Type B (PCR) (Not Detectd) RSV (PCR) (Not Detectd) SARS-CoV-2 (PCR) (Not Detectd) 07/10/24 07/10/24 Range/Units 21:10 21:29 WBC (3.8-10.6) k/uL RBC (4.30-5.90) m/uL Hgb (13.0-17.5) gm/dL Hct (39.0-53.0) % MCV (80.0-100.0) fL MCH (25.0-35.0) pg MCHC (31.0-37.0) g/dL RDW (11.5-15.5) % Plt Count (150-450) k/uL MPV Neutrophils % % Lymphocytes % % Monocytes % % Eosinophils % % Basophils % % Neutrophils # (1.3-7.7) k/uL Lymphocytes # (1.0-4.8) k/uL Monocytes # (0-1.0) k/uL Eosinophils # (0-0.7) k/uL Basophils # (0-0.2) k/uL PT (10.0-12.5) sec INR (<1.2) APTT (22.0-30.0) sec Sodium (137-145) mmol/L Potassium (3.5-5.1) mmol/L Chloride (98-107) mmol/L Carbon Dioxide (22-30) mmol/L Anion Gap mmol/L BUN (9-20) mg/dL Creatinine (0.66-1.25) mg/dL Est GFR (CKD-EPI)AfAm (>60 ml/min/1.73 sqM) Est GFR (CKD-EPI)NonAf (>60 ml/min/1.73 sqM) Glucose (74-99) mg/dL Lactic Ac Sepsis Rflx Plasma Lactic Acid Ramon 2.0 (0.7-2.0) mmol/L Calcium (8.4-10.2) mg/dL Magnesium (1.6-2.3) mg/dL Total Bilirubin (0.2-1.3) mg/dL AST (17-59) U/L ALT (4-49) U/L Alkaline Phosphatase (38-126) U/L Ammonia (<30) umol/L Creatine Kinase (55-170) U/L Troponin I (0.000-0.034) ng/mL NT-Pro-B Natriuret Pep pg/mL Total Protein (6.3-8.2) g/dL Albumin (3.5-5.0) g/dL Urine Color Urine Appearance (Clear) Urine pH (5.0-8.0) Ur Specific [place] (1.001-1.035) Urine Protein (Negative) Urine Glucose (UA) (Negative) Urine Ketones (Negative) Urine Blood (Negative) Urine Nitrite (Negative) Urine Bilirubin (Negative) Urine Urobilinogen (<2.0) mg/dL Ur Leukocyte Esterase (Negative) Urine RBC (0-5) /hpf Urine WBC (0-5) /hpf Ur Squamous Epith Cells (0-4) /hpf Urine Mucus (None) /hpf Urine Opiates Screen Not Detected (NotDetected) Ur Oxycodone Screen Not Detected (NotDetected) Urine Methadone Screen Not Detected (NotDetected) Ur Barbiturates Screen Not Detected (NotDetected) U Tricyclic Antidepress Not Detected (NotDetected) Ur Phencyclidine Scrn Not Detected (NotDetected) Ur Amphetamines Screen Not Detected (NotDetected) U Methamphetamines Scrn Not Detected (NotDetected) U Benzodiazepines Scrn Not Detected (NotDetected) Urine Cocaine Screen Not Detected (NotDetected) U Marijuana (THC) Screen Not Detected (NotDetected) Serum Alcohol mg/dL Influenza Type A (PCR) (Not Detectd) Influenza Type B (PCR) (Not Detectd) RSV (PCR) (Not Detectd) SARS-CoV-2 (PCR) (Not Detectd) Disposition Clinical Impression: Dehydration, Syncope Disposition: HOME SELF-CARE Condition: Good Instructions (If sedation given, give patient instructions): Dehydration (ED), Syncope (ED) Additional Instructions: Follow-up with your PCP. Report back to ER with any new or worsening symptoms. Is patient prescribed a controlled substance at d/c from ED?: No Referrals: Nikhil Vaughan MD [Primary Care Provider] - 1-2 days Time of Disposition: 22:04
[2024-07-10 21:55] LABS: Appearance,Urine Cloudy (Clear); Bilirubin,Urine Negative (Negative); Blood,Urine Negative (Negative); Color,Urine Yellow; Glucose,Urine (UA) Negative (Negative); Ketones,Urine 1+ (Negative); Leukocyte Esterase,Urine Negative (Negative); Mucus,Urine Many /hpf; Nitrite,Urine Negative (Negative); PH, Urine 6.5 (5.0-8.0); Protein,Urine 1+ (Negative); RBC,Urine 1 /hpf (0-5); Specific Gravity,Urine 1.023 (1.001-1.035); Squamous Epithelial Cell,Urine 4 /hpf (0-4); WBC,Urine 4 /hpf (0-5)
[2024-07-10 21:58] LABS: Amphetamine Screen,Urine Not Detected (NotDetected); Barbiturate Screen,Urine Not Detected (NotDetected); Benzodiazepines Screen,Urine Not Detected (NotDetected); Cocaine Screen,Urine Not Detected (NotDetected); Methadone Screen, Urine Not Detected (NotDetected); Opiate Screen,Urine Not Detected (NotDetected); Oxycodone Screen, Urine Not Detected (NotDetected); Phencyclidine Screen,Urine Not Detected (NotDetected); Tricyclic Antidepressant,Urine Not Detected (NotDetected); Urn Cannabinoid Scrn Not Detected (NotDetected)
[2024-07-10 22:18] VITALS: BP 131/73; PULSE 100; RESP 18; TEMP 98.1
== END 2024-07-10 22:19 | disposition home or self-care (01) ==
LOC: EC 17:00
DX: R55 Syncope and collapse (principal); E86.0 Dehydration
CPT/HCPCS: 36415; 93005; 83880; 80053; 82140; 82550; 83605; 83735; 84484; 85025; 85610; 85730; 81001; 80306; 87636; 71046; 72125; 70450; 99285; G0480; 80320

== ENCOUNTER 2025-01-16 11:03 | Inpatient (IN) | payer MEDICARE, OTHER ==
--- NOTE | 2025-01-16 11:28 | ED ---
Arrhythmia/Palpitations HPI - General Chief Complaint: Arrhythmia/Palpitations Stated Complaint: SOB Time Seen by Provider: 01/16/25 11:28 Source: patient, EMS, RN notes reviewed Mode of arrival: EMS Limitations: no limitations - History of Present Illness Initial Comments: 74-year-old male presenting to the ER via EMS for evaluation of shortness of breath. Per EMS, patient has been experiencing vertigo symptoms for approximately 2 weeks. Patient was found to be in atrial fibrillation by EMS, he denies a hx of this. Per patient, he reports while at [employer] today, approximately 1 hour prior to arrival, he started to have an increase of shortness of breath, dizziness and lightheadedness, which prompted EMS to be called. He does report a tingling sensation in his chest without radiation. Patient admits to a heart attack in 2017 and follows up with cardiology, Dr. Guillen. He denies home oxygen use or orthopnea. Admits to recent exertional dyspnea. No history of COPD, CHF, DVTs/PEs. Patient denies any daily medications or blood thinner use. Patient denies any fevers, chills, cough, congestion, headache, abdominal pain or other complaints. - Related Data Home Medications Medication Instructions Recorded Confirmed No Known Home Medications 01/16/25 01/16/25 Allergies Allergy/AdvReac Type Severity Reaction Status Date / Time No Known Allergies Allergy Verified 01/16/25 12:15 Review of Systems ROS Statement: Those systems with pertinent positive or pertinent negative responses have been documented in the HPI. ROS Other: All systems not noted in ROS Statement are negative. Past Medical History Past Medical History: Myocardial Infarction ([place]) Additional Past Medical History / Comment(s): 08/13/17 STEMI Last Myocardial Infarction Date:: 08/13/17 History of Any Multi-Drug Resistant Organisms: None Reported Past Surgical History: Appendectomy, Heart Catheterization With Stent Additional Past Surgical History / Comment(s): 08-13-17 HEART CATH W/ STENT TO LT CIRC. Past Anesthesia/Blood Transfusion Reactions: No Reported Reaction Date of Last Stent Placement:: 08/13/17 Past Psychological History: No Psychological Hx Reported Smoking Status: Never smoker Past Alcohol Use History: None Reported Past Drug Use History: None Reported - Past Family History Father History Unknown: Yes Mother History Unknown: Yes General Exam Limitations: no limitations General appearance: alert, in no apparent distress Respiratory exam: Present: normal lung sounds bilaterally. Absent: respiratory distress, wheezes, rales, rhonchi, stridor Cardiovascular Exam: Present: normal rhythm, tachycardia, normal heart sounds GI/Abdominal exam: Present: soft, normal bowel sounds. Absent: distended, tenderness, guarding, rebound, rigid Extremities exam: Present: full ROM, normal capillary refill, pedal edema (1+ bilaterally) Neurological exam: Present: alert, oriented X3, CN II-XII intact Skin exam: Present: warm, dry, intact, normal color. Absent: rash Course Vital Signs 01/16/25 01/16/25 01/16/25 11:08 13:09 13:38 Temperature 97.9 F Pulse Rate 115 H 110 H 108 H Respiratory 20 16 18 Rate Blood Pressure 140/86 147/90 151/91 O2 Sat by Pulse 100 100 99 Oximetry 01/16/25 14:22 Temperature Pulse Rate 112 H Respiratory 18 Rate Blood Pressure 151/91 O2 Sat by Pulse 99 Oximetry - Reevaluation(s) Reevaluation #1: 01/16/25 13:00 Patient reevaluated. No signs of acute distress. Patient reporting no current chest discomfort or shortness of breath. Patient remains sinus tachycardic 110 bpm. Vitals stable. 01/16/25 13:[address] iSmms, [place], for admission EKG Findings - EKG Comments: EKG Findings:: EKG taken at 11: 43 showing a sinus tachycardia. No ST segment elevations or depressions. No T wave inversions. Ventricular rate 111, NH interval 198, QRS duration 86, QT/QTc 306/372. Medical Decision Making - Medical Decision Making Was pt. sent in by a medical professional or institution (, PA, DEPARTMENT HELPER, urgent care, hospital, or snf...) When possible be specific @ -No Did you speak to anyone other than the patient for history (EMS, parent, family, police, friend...)? What history was obtained from this source @ -EMS stating patient reported to them he has been feeling dizzy for approxi mately 2 weeks. Did you review nursing and triage notes (agree or disagree)? Why? @ -I reviewed and agree with nursing and triage notes Were old charts reviewed (outside hosp., previous admission, EMS record, old EKG, old radiological studies, urgent care reports/EKG's, snf records)? Report findings @ -No old charts were reviewed Differential Diagnosis (chest pain, altered mental status, abdominal pain women, abdominal pain men, vaginal bleeding, weakness, fever, dyspnea, syncope, headache, dizziness, GI bleed, back pain, seizure, CVA, palpatations, mental health, musculoskeletal)? @ -Differential Dyspnea:Coronary syndrome, arrhythmia, tamponade, asthma, COPD, pulmonary embolism, pneumonia, pneumothorax, pulmonary effusion, anaphylaxis, diabetic ketoacidosis, flailed chest, pulmonary contusion, diaphragmatic rupture, anemia, neuromuscular, this is not meant to be an all-inclusive list. EKG interpreted by me (3pts min.). @ -As above X-rays interpreted by me (1pt min.). @ -CXR interpreted me negative for focal consolidations, pneumothorax or pleural effusions. CT interpreted by me (1pt min.). @ -None done U/S interpreted by me (1pt. min.). @ -None done What testing was considered but not performed or refused? (CT, X-rays, U/S, labs)? Why? @ -None What meds were considered but not given or refused? Why? @ -Fluid bolus held for concern of CHF as pitting edema to LE and SOB. Did you discuss the management of the patient with other professionals (professionals i.e. , PA, DEPARTMENT HELPER, lab, RT, psych nurse, director of social work, lpn medical assistant, teacher, major gifts officer, block and case maker)? Give summary @ -Case discussed with [place], Dr. Simms, who accepts admission. Patient typically sees Dr. Vaughan, [place] covering on the weekends. Was smoking cessation discussed for >3mins.? @ -No Was critical care preformed (if so, how long)? @ -Yes, 31 minutes Were there social determinants of health that impacted care today? How? (Homelessness, low income, unemployed, alcoholism, drug addiction, transportation, low edu. Level, literacy, decrease access to med. care, shelter, rehab)? @ -No Was there de-escalation of care discussed even if they declined (Discuss DNR or withdrawal of care, Hospice)? DNR status @ -No What co-morbidities impacted this encounter? (DM, HTN, Smoking, COPD, CAD, Can cer, CVA, ARF, Chemo, Hep., AIDS, mental health diagnosis, sleep apnea, morbid obesity)? @ -History of STEMI [address] Guillen. Was patient admitted / discharged? Hospital course, mention meds given and route, prescriptions, significant lab abnormalities, going to OR and other pertinent info. @ -Admitted. 74 year old male presenting to the ER via EMS for evaluation of shortness of breath. Upon arrival, patient is tachycardic 115 bpm vitals otherwise with acceptable limits. Oxygen saturation 100% on room air, patient was placed on 2 L nasal cannula oxygen for comfort not hypoxia. Patient in no signs of acute distress nontoxic-appearing. Cardiac workup ordered, patient agreeable. EKG showing a sinus tachycardia with no ST segment elevations /depressions or T wave inversions. Workup remarkable for an elevated troponin of 0.090, BNP 1550, d-dimer negative at 0.26. CXR showing no acute cardiopulmonary process. Patient received 325 mg aspirin and was started on low dose heparin due to elevated troponin. Patient remained stable throughout ER stay and denied any chest pain/discomfort on reevaluation. During reevaluation, results were discussed with patient and all questions answered. Patient is agreeable for admission. Admission accepted by [place], Dr. Simms, for cardiology consultation. Cardiology on consult. Patient admitted in stable condition for further evaluation and treatment. Case discussed with ED attending, Dr. Ruelas. Undiagnosed new problem with uncertain prognosis? @ -No Drug Therapy requiring intensive monitoring for toxicity (Heparin, Nitro, Insulin, Cardizem)? @ -Yes, heparin Were any procedures done? @ -No Diagnosis/symptom? @ -Unstable angina/elevated troponin Acute, or Chronic, or Acute on Chronic? @ -Acute Uncomplicated (without systemic symptoms) or Complicated (systemic symptoms)? @ -Complicated Side effects of treatment? @ -No Exacerbation, Progression, or Severe Exacerbation? @ -No Poses a threat to life or bodily function? How? (Chest pain, [place], CA, pneumonia, PE, COPD, DKA, ARF, appy, cholecystitis, CVA, Diverticulitis, Homicidal, Suicidal, threat to staff... and all critical care pts) @ -Yes, cannot rule out ACS - Lab Data Result diagrams: 01/16/25 13:00 01/16/25 12:03 Lab Results 01/16/25 01/16/2525 Range/Units 12:03 12:03 13:00 WBC (4.50-10.00) 10*3/uL RBC (4.40-5.60) 10*6/uL Hgb (13.0-17.0) g/dL Hct (39.6-50.0) % MCV (80.0-97.0) fL MCH (27.0-32.0) pg MCHC (32.0-37.0) g/dL Plt Count (140-440) 10*3/uL MPV (9.5-12.2) fL Immature Gran % (Auto) % Neutrophils % % Lymphocytes % % Monocytes % % Eosinophils % % Basophils % % Immature Gran # (0.00-0.04) 10*3/uL Neutrophils # (1.80-7.70) 10*3/uL Lymphocytes # (0.90-5.00) 10*3/uL Monocytes # (0.20-1.00) 10*3/uL Eosinophils # (0.04-0.35) 10*3/uL Basophils # (0.00-0.10) 10*3/uL PT (10.0-12.5) sec INR (<1.2) APTT (22.0-30.0) sec D-Dimer (<0.60) mg/L FEU Sodium 137 (137-145) mmol/L Potassium 4.1 (3.5-5.1) mmol/L Chloride 103 (98-107) mmol/L Carbon Dioxide 24 (22-30) mmol/L Anion Gap 10 mmol/L BUN 11 (9-20) mg/dL Creatinine 0.62 L (0.66-1.25) mg/dL Est GFR (CKD-EPI)AfAm >90 (>60 ml/min/1.73 sqM) Est GFR (CKD-EPI)NonAf >90 (>60 ml/min/1.73 sqM) Glucose 103 H (74-99) mg/dL Calcium 9.6 (8.4-10.2) mg/dL Magnesium 1.6 (1.6-2.3) mg/dL Total Bilirubin 0.8 (0.2-1.3) mg/dL AST 29 (17-59) U/L ALT 17 (4-49) U/L Alkaline Phosphatase 82 (38-126) U/L Troponin I 0.090 H* (0.000-0.034) ng/mL NT-Pro-B Natriuret Pep 1550 pg/mL Total Protein 6.8 (6.3-8.2) g/dL Albumin 3.9 (3.5-5.0) g/dL TSH 3.740 (0.465-4.680) mIU/L Influenza Type A (PCR) Not Detected (Not Detectd) Influenza Type B (PCR) Not Detected (Not Detectd) RSV (PCR) Not Detected (Not Detectd) SARS-CoV-2 (PCR) Not Detected (Not Detectd) 01/16/25 01/16/25 Range/Units 13:00 13:00 WBC 7.52 (4.50-10.00) 10*3/uL RBC 4.65 (4.40-5.60) 10*6/uL Hgb 14.6 (13.0-17.0) g/dL Hct 42.4 (39.6-50.0) % MCV 91.2 (80.0-97.0) fL MCH 31.4 (27.0-32.0) pg MCHC 34.4 (32.0-37.0) g/dL Plt Count 255 (140-440) 10*3/uL MPV 10.1 (9.5-12.2) fL Immature Gran % (Auto) 0.3 % Neutrophils % 78.2 % Lymphocytes % 13.7 % Monocytes % 6.6 % Eosinophils % 0.5 % Basophils % 0.7 % Immature Gran # 0.02 (0.00-0.04) 10*3/uL Neutrophils # 5.88 (1.80-7.70) 10*3/uL Lymphocytes # 1.03 (0.90-5.00) 10*3/uL Monocytes # 0.50 (0.20-1.00) 10*3/uL Eosinophils # 0.04 (0.04-0.35) 10*3/uL Basophils # 0.05 (0.00-0.10) 10*3/uL PT 10.7 (10.0-12.5) sec INR 1.0 (<1.2) APTT 25.3 (22.0-30.0) sec D-Dimer 0.26 (<0.60) mg/L FEU Sodium (137-145) mmol/L Potassium (3.5-5.1) mmol/L Chloride (98-107) mmol/L Carbon Dioxide (22-30) mmol/L Anion Gap mmol/L BUN (9-20) mg/dL Creatinine (0.66-1.25) mg/dL Est GFR (CKD-EPI)AfAm (>60 ml/min/1.73 sqM) Est GFR (CKD-EPI)NonAf (>60 ml/min/1.73 sqM) Glucose (74-99) mg/dL Calcium (8.4-10.2) mg/dL Magnesium (1.6-2.3) mg/dL Total Bilirubin (0.2-1.3) mg/dL AST (17-59) U/L ALT (4-49) U/L Alkaline Phosphatase (38-126) U/L Troponin I (0.000-0.034) ng/mL NT-Pro-B Natriuret Pep pg/mL Total Protein (6.3-8.2) g/dL Albumin (3.5-5.0) g/dL TSH (0.465-4.680) mIU/L Influenza Type A (PCR) (Not Detectd) Influenza Type B (PCR) (Not Detectd) RSV (PCR) (Not Detectd) SARS-CoV-2 (PCR) (Not Detectd) - Radiology Data Radiology results: report reviewed, image reviewed Disposition Clinical Impression: Unstable angina, Elevated troponin Disposition: ADMITTED IP TO THIS [facility] Condition: Stable Time of Disposition: 13:36
--- NOTE | 2025-01-16 12:21 | XR ---
EXAMINATION TYPE: XR chest 2V DATE OF EXAM: 01/16/2025 12:12 PM COMPARISON: Chest radiographs from 07/10/2024 TECHNIQUE: XR chest 2V Frontal and lateral views of the chest. CLINICAL INDICATION:Male, 74 years old with history of dysrhythmia; FINDINGS: Lungs/Pleura: There is no evidence of pleural effusion, focal consolidation, or pneumothorax. Pulmonary vascularity: Unremarkable. Heart/mediastinum: Cardiomediastinal silhouette is prominent in size. Musculoskeletal: Multiple level degenerative disc disease changes seen throughout the spine. IMPRESSION: No acute cardiopulmonary disease/process. [facility], , 01/16/2025 12:18 PM
[2025-01-16 12:30] LABS: ALT 17 U/L (4-49); African American GFR (CKD) >90 (>60 ml/min/1.73 sqM); Albumin 3.9 g/dL (3.5-5.0); Anion Gap 10 mmol/L; Blood Urea Nitrogen 11 mg/dL (9-20); Calcium 9.6 mg/dL (8.4-10.2); Carbon Dioxide 24 mmol/L (22-30); Chloride 103 mmol/L (98-107); Glucose 103 mg/dL (74-99); Non-African American GFR(CKD) >90 (>60 ml/min/1.73 sqM); Sodium 137 mmol/L (137-145); Total Bilirubin 0.8 mg/dL (0.2-1.3); Total Protein 6.8 g/dL (6.3-8.2)
[2025-01-16 12:33] LABS: Potassium 4.1 mmol/L (3.5-5.1)
[2025-01-16 12:34] LABS: AST 29 U/L (17-59); Alkaline Phosphatase 82 U/L (38-126); Magnesium 1.6 mg/dL (1.6-2.3)
[2025-01-16 12:39] LABS: NT-Pro-B-Type Natriuretic Pept 1550 pg/mL
[2025-01-16 13:05] LABS: Basophils # (A) 0.05 10*3/uL (0.00-0.10); Basophils % (A) 0.7 %; Eosinophils # (A) 0.04 10*3/uL (0.04-0.35); Eosinophils % (A) 0.5 %; HCT 42.4 % (39.6-50.0); HGB 14.6 g/dL (13.0-17.0); Lymphocytes # (A) 1.03 10*3/uL (0.90-5.00); Lymphocytes % (A) 13.7 %; MCH 31.4 pg (27.0-32.0); MCHC 34.4 g/dL (32.0-37.0); MCV 91.2 fL (80.0-97.0); Mean Platelet Volume 10.1 fL (9.5-12.2); Monocytes % (A) 6.6 %; Neutrophils # (A) 5.88 10*3/uL (1.80-7.70); Neutrophils % (A) 78.2 %; Platelet Count 255 10*3/uL (140-440); RBC 4.65 10*6/uL (4.40-5.60); RDW 14.1 % (11.5-14.5); WBC 7.52 10*3/uL (4.50-10.00)
[2025-01-16] MEDS: ASPIRIN 325 MG TAB PO STA (13:07)
[2025-01-16 13:23] LABS: Partial Thromboplastin Time 25.3 sec (22.0-30.0); Prothrombin Time 10.7 sec (10.0-12.5)
[2025-01-16 13:41] LABS: Influenza A Not Detected (Not Detectd); Influenza B Not Detected (Not Detectd); RSV Not Detected (Not Detectd)
[2025-01-16] MEDS ORDERED: NALOXONE 0.4 MG/ML 1 ML VIAL IV PRN (13:51)
[2025-01-16] MEDS ORDERED: ACETAMINOPHEN TAB 325 MG TAB PO PRN (13:51)
[2025-01-16] MEDS: HEPARIN SODIUM 1,000 UN/ML (10ML VL) IV ONE (14:16)
[2025-01-16] MEDS: HEPARIN SOD,PORK IN 0.45% NACL 25,000 UNIT in 0.45% NACL 1 250ML.BAG IV SCH (14:20)
[2025-01-16] MEDS: ATORVASTATIN 40 MG TAB PO SCH (21:01)
[2025-01-16] MEDS: METOPROLOL SUCCINATE (ER) 25 MG TAB.ER.24H PO SCH (21:01)
[2025-01-17] MEDS ORDERED: ALPRAZolam 0.5 MG TAB PO PRN (08:00)
[2025-01-17] MEDS: ASPIRIN 325 MG TAB PO STA (08:22)
[2025-01-17] MEDS: SODIUM CHLORIDE 0.9% 1,000 ML in EMPTY BAG 1 BAG IV SCH (08:22)
[2025-01-17] MEDS: ATORVASTATIN 80 MG TAB PO STA (08:22)
[2025-01-17 08:24] LABS: Basophils # (A) 0.05 10*3/uL (0.00-0.10); Basophils % (A) 0.7 %; Eosinophils % (A) 1.5 %; HCT 40.7 % (39.6-50.0); HGB 13.4 g/dL (13.0-17.0); Lymphocytes # (A) 1.75 10*3/uL (0.90-5.00); Lymphocytes % (A) 26.1 %; MCH 30.7 pg (27.0-32.0); MCHC 32.9 g/dL (32.0-37.0); MCV 93.3 fL (80.0-97.0); Mean Platelet Volume 10.3 fL (9.5-12.2); Monocytes # (A) 0.64 10*3/uL (0.20-1.00); Monocytes % (A) 9.6 %; Neutrophils # (A) 4.15 10*3/uL (1.80-7.70); Platelet Count 217 10*3/uL (140-440); RBC 4.36 10*6/uL (4.40-5.60); RDW 14.5 % (11.5-14.5)
[2025-01-17] MEDS: ASPIRIN 81 MG PO SCH (08:28)
[2025-01-17 08:39] LABS: Prothrombin Time 11.2 sec (10.0-12.5)
[2025-01-17] MEDS: IV FLUID CONTINUATION 1,000 ML IV ONE (09:05)
[2025-01-17] MEDS: HEPARIN SODIUM,PORCINE (1 ML) 2,500 UNIT in SODIUM CHLORIDE 0.9% 250 ML IRRIGATION ONE (09:06)
[2025-01-17] MEDS: HEPARIN SODIUM,PORCINE 10,000 UNIT in SODIUM CHLORIDE 0.9% 1,000 ML IRRIGATION ONE (09:06)
[2025-01-17] MEDS: fentaNYL (PF) 50 MCG/ML 2 ML AMP IVP ONE (09:13)
[2025-01-17] MEDS: MIDAZOLAM 2 MG/2 ML VIAL IVP ONE (09:13)
[2025-01-17] MEDS: LIDOCAINE 1% INJ 10MG/ML (20 ML MDV) SQ ONE (09:16)
[2025-01-17] MEDS: VERAPAMIL SYRINGE (5 MG/10 ML) INTRAARTER ONE (09:17)
[2025-01-17] MEDS: HEPARIN SODIUM 1,000 UN/ML (10ML VL) IVP ONE (09:32)
[2025-01-17] MEDS: IOPAMIDOL-370 100ML BTL INJ ONE (09:33)
--- NOTE | 2025-01-17 09:57 | P.CRDCN ---
History of Present Illness History of present illness: HISTORY OF PRESENT ILLNESS: This is a 74-year-old male with a past medical history significant for coronary artery disease with previous stenting of the circumflex of the LAD, hypertensio n, and hyperlipidemia. Patient used to follow in the office with Dr. Guillen but has not been seen since October 2019. We have been asked to see the patient in consultation for chest pain. Patient examined at the bedside in the emergency room. Patient states that he was at [employer] yesterday when he began to have chest discomfort. He states the pain was in the middle of the chest. He denied any radiation of the pain. He also reported having some dizziness. The patient was found to have elevated troponins and was started on IV heparin. At the time of examination he denies any chest pain or pressure. Bedside telemetry reveals sinus mechanism. DIAGNOSTICS: - EKG reveals sinus tachycardia with no signs of acute ischemia. - Chest xray negative for acute process - Laboratory data: WBC 6.7. Hemoglobin 13.4. Platelet count 217. D-dimer 0.26. Sodium 137. Potassium 4.1. BUN 11. Creatinine 0.62. Troponin 0.090. 3.400. proBNP 1550. TSH 3.740. - Current home cardiac medications include none. - Most recent echocardiogram obtained in July 2017 revealing ejection fraction 60 to 65% with mild TR - Cardiac catheterization history: July 2017 with stenting of the proximal left circumflex. - Repeat cardiac catheterization performed in August 2017 with stenting of the LAD REVIEW OF SYSTEMS: At the time of my exam: CONSTITUTIONAL: Denies fever or chills. HEENT: Denies blurred vision, vision changes, or eye pain. Denies hemoptysis CARDIOVASCULAR: Denies chest pain. Denies orthopnea. Denies PND. Denies palpitations RESPIRATORY: Denies shortness of breath. GASTROINTESTINAL: Denies abdominal pain. Denies nausea or vomiting. HEMATOLOGIC: Denies bleeding disorders. GENITOURINARY: Denies any blood in urine. SKIN: Denies pruitis. Denies rash. PHYSICAL EXAM: VITAL SIGNS: Reviewed. GENERAL: Well-developed in no acute distress. HEENT: Head is normocephalic. Pupils are equal, round. Sclerae anicteric. Mucous membranes of the mouth are moist. Neck supple. No JVD or thyromegaly LUNGS: Respirations even and unlabored. Lungs essentially clear to auscultation bilaterally. HEART: Regular rate and rhythm. S1 and S2 heard. ABDOMEN: Soft. Nondistended. Nontender. EXTREMITIES: Normal range of motion. No clubbing or cyanosis. Peripheral pulses intact. No lower extremity edema NEUROLOGIC: Awake and alert. Oriented x 3. ASSESSMENT: Non-STEMI Coronary artery disease with previous stenting of circumflex and LAD, 2017 Hypertension Hyperlipidemia Obesity: BMI 33.1 PLAN: Obtain 2D echo to assess cardiac structure and function Continue IV heparin Continue aspirin 81 mg daily and atorvastatin 40 mg at HS Continue metoprolol Check lipid panel and hemoglobin A1c Patient to undergo cardiac catheterization today with Dr. Mccabe Further recommendations pending patient course Nurse practitioner note has been reviewed by physician. Signing provider agrees with the documented findings, assessment, and plan of care documented by TELEGRAPH INSPECTOR as a scribe. Past Medical History Past Medical History: Myocardial Infarction ([place]) Additional Past Medical History / Comment(s): 08/13/17 STEMI Last Myocardial Infarction Date:: 08/13/17 History of Any Multi-Drug Resistant Organisms: None Reported Past Surgical History: Appendectomy, Heart Catheterization With Stent Additional Past Surgical History / Comment(s): 08-13-17 HEART CATH W/ STENT TO LT CIRC. Past Anesthesia/Blood Transfusion Reactions: No Reported Reaction Date of Last Stent Placement:: 08/13/17 Past Psychological History: No Psychological Hx Reported Smoking Status: Never smoker Past Alcohol Use History: None Reported Past Drug Use History: None Reported - Past Family History Father History Unknown: Yes Mother History Unknown: Yes Medications and Allergies Home Medications Medication Instructions Recorded Confirmed Type No Known Home Medications 01/16/25 01/16/25 History Allergies Allergy/AdvReac Type Severity Reaction Status Date / Time No Known Allergies Allergy Verified 01/16/25 12:15 Physical Exam Vitals: Vital Signs Temp Pulse Resp BP Pulse Ox 01/17/25 08:13 85 16 128/81 99 01/17/25 02:37 97.9 F 74 19 118/72 100 01/16/25 20:57 98.0 F 92 19 146/83 98 01/16/25 17:14 100 16 152/96 100 01/16/25 14:22 112 H 18 151/91 99 01/16/25 13:38 108 H 18 151/91 99 01/16/25 13:09 110 H 16 147/90 100 01/16/25 11:08 97.9 F 115 H 20 140/86 100 Intake and Output 01/16/25 01/17/25 01/17/25 22:59 06:59 14:59 Intake Total 49.152 231.794 Balance 49.152 231.794 Intake: IV 100 Intake, IV Titration 49.152 131.794 Amount Heparin Sod,Pork in 0.45% 49.152 131.794 NaCl 25,000 unit In 0.45 % NaCl 1 250ml.bag @ 10. 11 UNITS/KG/HR 9.997 mls/ hr IV .Q24H [facility] Rx#: [id number] Results 01/17/25 07:58 01/16/25 12:03 Cardiac Enzymes 01/16/25 01/16/25 01/16/25 Range/Units 12:03 12:03 16:34 AST 29 (17-59) U/L Troponin I 0.090 H* 3.400 H* (0.000-0.034) ng/mL Coagulation 01/16/25 01/16/25 01/17/25 Range/Units 13:00 19:15 07:58 PT 10.7 11.2 (10.0-12.5) sec APTT 25.3 40.9 H (22.0-30.0) sec CBC 01/16/25 01/17/25 Range/Units 13:00 07:58 WBC 7.52 6.70 (4.50-10.00) 10*3/uL RBC 4.65 4.36 L (4.40-5.60) 10*6/uL Hgb 14.6 13.4 (13.0-17.0) g/dL Hct 42.4 40.7 (39.6-50.0) % Plt Count 255 217 (140-440) 10*3/uL Comprehensive Metabolic Panel 01/16/25 Range/Units 12:03 Sodium 137 (137-145) mmol/L Potassium 4.1 (3.5-5.1) mmol/L Chloride 103 (98-107) mmol/L Carbon Dioxide 24 (22-30) mmol/L BUN 11 (9-20) mg/dL Creatinine 0.62 L (0.66-1.25) mg/dL Glucose 103 H (74-99) mg/dL Calcium 9.6 (8.4-10.2) mg/dL AST 29 (17-59) U/L ALT 17 (4-49) U/L Alkaline Phosphatase 82 (38-126) U/L Total Protein 6.8 (6.3-8.2) g/dL Albumin 3.9 (3.5-5.0) g/dL Current Medications Generic Name Dose Route Start Last Admin Trade Name Freq PRN Reason Stop Dose Admin Acetaminophen 650 mg 01/16/25 13:51 Acetaminophen Tab 325 Mg Tab PO Q6HR PRN Mild Pain or Fever > 100.5 Alprazolam 0.25 mg 01/17/25 08:00 Alprazolam 0.25 Mg Tab PO Q6HR PRN Mild Anxiety Alprazolam 0.5 mg 01/17/25 08:00 Alprazolam 0.5 Mg Tab PO Q6HR PRN Moderate Anxiety Aspirin 81 mg 01/17/25 09:00 01/17/25 08:28 Aspirin 81 Mg PO Not Given DAILY [facility]ERNANDA Atorvastatin Calcium 40 mg 01/16/25 20:15 01/17/25 08:29 Atorvastatin 40 Mg Tab PO Not Given DAILY [facility]ERNANDA Heparin Sodium (Porcine) 0 unit 01/16/25 13:35 Heparin Sodium 1,000 Un/Ml (10ml Vl) IV PER PROTOCOL PRN Low PTT Protocol Heparin Sodium/Sodium Chloride 250 mls @ 9.997 mls/hr 01/16/25 13:45 01/17/25 08:26 25,000 unit/ Sodium Chloride IV 0 units/kg/hr .Q24H [facility]DA 0 mls/hr Titration Protocol 10.11 UNITS/KG/HR Heparin Sodium (Porcine) 10, 1,001 mls @ 999 mls/hr 01/18/25 07:00 000 unit/ Sodium Chloride IRRIGATION 01/18/25 23:00 ONCE PRN INTRA-OP Heparin Sodium (Porcine) 2,500 250.5 mls @ 250 mls/hr 01/18/25 07:00 unit/ Sodium Chloride IRRIGATION 01/18/25 23:00 ONCE PRN INTRA-OP Sodium Chloride 1,000 ml/ IV 1,000 mls @ 98.883 mls/hr 01/17/25 08:00 01/17/25 08:22 Solution IV 98.883 mls/hr .Q10H7M FERNANDA Administration 1 ML/KG/HR Metoprolol Succinate 25 mg 01/16/25 20:00 01/16/25 21:01 Metoprolol Succinate (Er) 25 Mg Tab.Er.24h PO 25 mg DAILY FER[facility]NDA Administration Naloxone HCl 0.2 mg 01/16/25 13:51 Naloxone 0.4 Mg/Ml 1 Ml Vial IV Q2M PRN Opioid Reversal Nitroglycerin 0.4 mg 01/17/25 08:00 Nitroglycerin Sl Tabs 0.4 Mg Tab SUBLINGUAL Q5M PRN Chest Pain Intake and Output 01/16/25 01/17/25 01/17/25 22:59 06:59 14:59 Intake Total 49.152 231.794 Balance 49.152 231.794 Intake: IV 100 Intake, IV Titration 49.152 131.794 Amount Heparin Sod,Pork in 0.45% 49.152 131.794 NaCl 25,000 unit In 0.45 % NaCl 1 250ml.bag @ 10. 11 UNITS/KG/HR 9.997 mls/ hr IV .Q24H [facility] Rx#: [id number] 01/17/25 07:58 01/16/25 12:03
[2025-01-17] MEDS ORDERED: RX INFO: IV CONTRAST WAS GIVEN 1 EACH MISC MISCELLANE PRN (10:46)
--- NOTE | 2025-01-17 10:57 | P.HPIM ---
History of Present Illness H&P Date: 01/17/25 Chief Complaint: Chest pain This is 74-year-old gentleman, follows with [facility] with past medical history significant for CAD, PR with stents of the circumflex and LAD, morbid obesity, hypertension, hyperlipidemia and multiple other medical issues brought into the ER via EMS [place] [facility] yesterday secondary to complaints of chest pain. Patient reports during [facility] he developed midsternal chest pain/tingling, nonradiating accompanied by increased shortness of breath and lightheadedness. Denies nausea, vomiting or diarrhea.denies abdominal pain.Patient responds slowly but a ppropriate;baseline as per PCP.Does not drive, uses the [facility] [employer] for transportation. Patient was initiated on IV heparin drip related to elevated troponins. EKG reported sinus tachycardia. Troponins 0.090, 3.400. D-dimer WNL, 0.26. Afebrile, normal WBC, hemoglobin 14.6, platelets 255, INR 1. 137, potassium 4 1, bicarb 24, creatinine 0.62, glucose 103, magnesium 1.6. proBNP 1550, TSH 3.740. Viral studies negative. Chest x-ray reported no acute cardiopulmonary disease/process. Currently denies chest pain, palpitations or shortness of breath.Maintaining O2 sats in the high 90s to 100% on room air. Review of Systems ROS Statement: Those systems with pertinent positive or pertinent negative responses have been documented in the HPI. ROS Other: All systems not noted in ROS Statement are negative. Past Medical History Past Medical History: Myocardial Infarction (PR) Additional Past Medical History / Comment(s): 08/13/17 STEMI Last Myocardial Infarction Date:: 08/13/17 History of Any Multi-Drug Resistant Organisms: None Reported Past Surgical History: Appendectomy, Heart Catheterization With Stent Additional Past Surgical History / Comment(s): 08-13-17 HEART CATH W/ STENT TO LT CIRC. Past Anesthesia/Blood Transfusion Reactions: No Reported Reaction Date of Last Stent Placement:: 08/13/17 Past Psychological History: No Psychological Hx Reported Smoking Status: Never smoker Past Alcohol Use History: None Reported Past Drug Use History: None Reported - Past Family History Father History Unknown: Yes Mother History Unknown: Yes Medications and Allergies Home Medications Medication Instructions Recorded Confirmed Type No Known Home Medications 01/16/25 01/16/25 History Allergies Allergy/AdvReac Type Severity Reaction Status Date / Time No Known Allergies Allergy Verified 01/16/25 12:15 Physical Exam Vitals: Vital Signs Temp Pulse Resp BP Pulse Ox 01/17/25 08:13 85 16 128/81 99 01/17/25 02:37 97.9 F 74 19 118/72 100 01/16/25 20:57 98.0 F 92 19 146/83 98 01/16/25 17:14 100 16 152/96 100 01/16/25 14:22 112 H 18 151/91 99 01/16/25 13:38 108 H 18 151/91 99 01/16/25 13:09 110 H 16 147/90 100 01/16/25 11:08 97.9 F 115 H 20 140/86 100 Intake and Output 01/16/25 01/17/25 01/17/25 22:59 06:59 14:59 Intake Total 49.152 131.794 Balance 49.152 131.794 Intake: Intake, IV Titration 49.152 131.794 Amount Heparin Sod,Pork in 0.45% 49.152 131.794 NaCl 25,000 unit In 0.45 % NaCl 1 250ml.bag @ 10. 11 UNITS/KG/HR 9.997 mls/ hr IV .Q24H [facility] Rx#: [id number] PHYSICAL EXAM: VITAL SIGNS: [Reviewed] GENERAL: Obese 74-year-old male, alert and oriented x 3 sitting up, no acute distress. HEENT: Normocephalic, atraumatic, conjunctivae normal. eyes normal. NECK: Supple, no JVD. No thyroid enlargement. CARDIOVASCULAR: S1, S2 regular. No murmur RESPIRATION: Unlabored, equal air entry,CTA with bilateral bases, ABDOMEN: Soft, nondistended, nontender . No guarding. no masses noted. +bs. LEGS: No edema. no swelling, no clubbing, no cyanosis, no calf tenderness.+DPs. NERVOUS SYSTEM: Cranial N 2-12 grossly normal. No focal deficits. Strength and sensation grossly intact.. Skin: Warm and dry, no rashes noted. Results CBC & Chem 7: 01/18/25 06:07 01/18/25 06:07 Labs: Abnormal Lab Results - Last 24 Hours (Table) 01/16/25 01/16/25 01/16/25 Range/Units 12:03 12:03 16:34 RBC (4.40-5.60) 10*6/uL APTT (22.0-30.0) sec Creatinine 0.62 L (0.66-1.25) mg/dL Glucose 103 H (74-99) mg/dL Troponin I 0.090 H* 3.400 H* (0.000-0.034) ng/mL 01/16/25 01/17/25 Range/Units 19:15 07:58 RBC 4.36 L (4.40-5.60) 10*6/uL APTT 40.9 H (22.0-30.0) sec Creatinine (0.66-1.25) mg/dL Glucose (74-99) mg/dL Troponin I (0.000-0.034) ng/mL Assessment and Plan Assessment: Midsternal chest pain, nonradiating with elevated troponins, NSTEMI CAD with history of PR 2017, stenting of circumflex and LAD Hypertension Hyperlipidemia Morbid obesity, BMI 33 Plan: Continue current medication resume ,monitoring and symptomatic treatment. Maintain anticoagulation with IV heparin, aspirin statin beta-trixie IV fluid hydration. Echo pending. Evaluated by cardiology, cardiac catheterization this a.m. pending. Cardiac catheterization verbally reported as triple-vessel disease with cardiothoracic surgery consulted. The impression and plan of care has been dictated as directed. : I performed a history and examination of this patient, discussed the same with the dictator. I agree with the dictator's note ,documented as a scribe. Any additional findings or plans will be noted.
[2025-01-17 11:10] LABS: Chol/HDL Ratio 3.83 Ratio; LDL Cholesterol,Calculated 100.8 mg/dL (0.0-131.0)
--- NOTE | 2025-01-17 12:32 | CC ---
CARDIAC CATHETERIZATION REPORT INDICATION: Non ST-segment elevation ND. PROCEDURE NOTE: After obtaining informed consent, left heart catheterization and coronary angiogram were performed via the right radial artery using standard Gino catheters. The patient tolerated the procedure well without any obvious immediate complications. The patient received moderate conscious sedation. Total sedation time was 18 minutes. Right radial artery access was obtained using Seldinger technique. A 6-Ukrainian sheath was placed. Catheters and wires were floated in the ascending aorta under fluoroscopic guidance. FINDINGS: 1. Hemodynamics: Central aortic pressure is 110/70 mm. 2. Left ventriculogram: Left ventriculogram is not performed. 3. Angiographic data: a.Right coronary artery: Right coronary artery is a large dominant vessel that shows a long segment of narrowing in the proximal portion which at its worst seems to be a 70% to 80% stenosis. There is a mid RCA lesion of 60% and divides into PDA and PLV. Ostium of the PLV has a 70% stenosis and PDA has a 50% to 60% stenosis. b.Left main coronary artery appears calcified. There is a distal left main plaque. Divides into left anterior descending coronary artery and circumflex coronary artery. c.Circumflex coronary artery shows a 95% ostial stenosis. LAD has an 80% to 90% stenosis proximally in the ostial portion. d. Rest of the vessel appears calcified. CONCLUSION: Severe three-vessel coronary artery disease as described above. PLAN: I am going to consult a CT surgeon for surgical revascularization. I will obtain a 2D echo to evaluate his LV function to rule out any significant valvular heart disease. MMODL / IJN: [id number] /
--- NOTE | 2025-01-17 14:38 | US ---
EXAMINATION TYPE: US carotid duplex BILAT DATE OF EXAM: 01/17/2025 COMPARISON: NONE CLINICAL INDICATION: Male, 74 years old with history of Pre-Op Cardiac Surgery,Ankle Brachial Index ( GUERO) ; Pre op. Hx [place] in 2017, 2 cardiac stents Additional History: .... TECHNIQUE: Grayscale, color Doppler and spectral Doppler evaluation of the bilateral carotid systems and vertebral arteries. Indirect Doppler criteria was utilized. FINDINGS: EXAM MEASUREMENTS: RIGHT: Peak Systolic Velocity (PSV) cm/sec ----- Right CCA: 78.4 ----- Right ICA: 68.6 ----- Right ECA: 99.1 ICA/CCA ratio: 0.9 RIGHT: End Diastole cm/sec ----- Right CCA: 10.0 ----- Right ICA: 12.7 ----- Right ECA: 0.0 LEFT: Peak Systolic Velocity (PSV) cm/sec ----- Left CCA: 84.2 ----- Left ICA: 93.0 ----- Left ECA: 154.4 ICA/CCA ratio: 1.1 LEFT: End Diastole cm/sec ----- Left CCA: 10.6 ----- Left ICA: 17.1 ----- Left ECA: 0.0 VERTEBRALS (direction of flow): Right Vertebral: Antegrade Left Vertebral: Antegrade Rhythm: Normal SAND DIGGER NOTES: *Elevated velocity left ECA. *Some plaque seen within bilateral bulbs. Color Doppler imaging shows patency with blood flow throughout the carotid artery. IMPRESSION: No evidence for hemodynamically significant stenosis. Criteria for Assigning % of Stenosis / Diameter reduction (Estimation based on the indirect measurements of the internal carotid artery velocities (ICA PSV). 1. Normal (no stenosis)=ICA PSV < 180 cm/s: ratio < 2.0: ICA EDV<40 cm/s. 2. Less than 50% stenosis=ICA PSV < 180 cm/s: ratio < 2.0: ICA EDV<40 cm/s. 3. 50 to 69% stenosis=ICA PSV of 180 to 230 cm/s: ration 2.0 ? 4.0: ICA EDV 40-100 cm/s. PSV 125-180 cm/sec and ICA/CCA PSV Ratio ? 2.0 is also consistent with 50-69% stenosis 4. Greater than 70% stenosis to near occlusion= ICA PSV > 230 cm/s: ratio > 4.0: ICA EDV > 100 cm/s. 5. Near occlusion= ICA PSV velocities may be low or undetectable: variable ratio and ICA EDV. 6. Total occlusion=unable to detect flow. [facility], , 01/17/2025 2:36 PM
--- NOTE | 2025-01-17 14:40 | US ---
EXAMINATION TYPE: Pre-Operative Non-Invasive Evaluation of the hand for Potential Radial Artery Angelica , Measurements only DATE OF EXAM: 01/17/2025 2:34 PM CLINICAL INDICATION: Male, 74 years old with history of Pre-Op Cardiac Surgery; Pre op, Preop- Cardia c Surgery TECHNIQUE:Grayscale and color Doppler imaging of the radial artery(s) SIDE PERFORMED: Left FINDINGS: Dominant hand: Pt states he uses right and left, pt writes with his left hand Duplex Findings: Radial Artery: Color flow seen Measurements in mm, transverse view: Left Radial: Proximal: 3.5 x 2.6 mm Mid: 3.2 x 2.9 mm Distal: 3.1 x 2.2 mm IMPRESSION: 1. No evidence for vascular occlusion. 2. Measurements as described above. [facility], , 01/17/2025 2:38 PM
--- NOTE | 2025-01-17 14:45 | US ---
EXAMINATION TYPE: US vein mapping BILAT DATE OF EXAM: 01/17/2025 2:29 PM COMPARISON: NONE CLINICAL INDICATION: Male, 74 years old with history of PreOp Cardiac Surgery; Pre Op, Preop- Cardiac Surgery TECHNIQUE: Grayscale and color Doppler imaging of the lower extremity venous system. SIDE PERFORMED: Bilateral FINDINGS: DUPLEX FINDINGS: Greater Saphenous: Color flow seen Measurements in mm: Right Greater Saphenous: Groin: 7.6 x 6.9 mm High Thigh: 5.7 x 5.7 mm Mid Thigh: 6.4 x 4.4 mm Above Knee: 6.0 x 4.2 mm Knee: 6.3 x 4.5 mm Below Knee: 5.4 x 4.0 mm Mid Calf: 3.8 x 2.9 mm At Ankle: 4.4 x 3.2 mm Left Greater Saphenous: Groin: 7.6 x 6.2 mm High Thigh: 5.5 x 5.6 mm Mid Thigh: 3.9 x 3.8 mm Above Knee: 4.6 x 3.1 mm Knee: 4.0 x 3.2 mm Below Knee: 4.6 x 3.5 mm. *Multiple GSV branches noted at below knee level and inferior. Mid Calf: 4.3 x 3.7 mm At Ankle: 4.6 x 3.3 mm. *Edema noted at ankle. Incidental finding: hypoechoic area seen in the right groin: 2.3 x 1.4 x 0.9 cm. IMPRESSION: 1. No evidence for occlusion. 2. GSV measurements listed above. 3. Performing surgeon to determine viability as conduit. [facility], , 01/17/2025 2:43 PM
[2025-01-17 14:58] LABS: ALT 26 U/L (4-49); AST 81 U/L (17-59); African American GFR (CKD) >90 (>60 ml/min/1.73 sqM); Albumin 3.5 g/dL (3.5-5.0); Alkaline Phosphatase 82 U/L (38-126); Anion Gap 7 mmol/L; Blood Urea Nitrogen 9 mg/dL (9-20); Calcium 9.4 mg/dL (8.4-10.2); Carbon Dioxide 29 mmol/L (22-30); Chloride 97 mmol/L (98-107); Glucose 97 mg/dL (74-99); Magnesium 1.5 mg/dL (1.6-2.3); Non-African American GFR(CKD) >90 (>60 ml/min/1.73 sqM); Potassium 4.1 mmol/L (3.5-5.1); Sodium 133 mmol/L (137-145); Total Bilirubin 0.7 mg/dL (0.2-1.3); Total Protein 6.1 g/dL (6.3-8.2)
[2025-01-17 15:01] LABS: Appearance,Urine Clear (Clear); Bilirubin,Urine Negative (Negative); Blood,Urine Negative (Negative); Color,Urine Yellow; Glucose,Urine (UA) Trace (Negative); Ketones,Urine Negative (Negative); Leukocyte Esterase,Urine Negative (Negative); Nitrite,Urine Negative (Negative); Protein,Urine Negative (Negative)
[2025-01-17 15:24] LABS: Specific Gravity,Urine >1.050 (1.001-1.035)
[2025-01-17] MEDS: SODIUM CHLORIDE 0.9% 1,000 ML IV SCH (15:40)
[2025-01-17] MEDS: HEPARIN SODIUM 1,000 UN/ML (10ML VL) IV PRN (16:01)
--- NOTE | 2025-01-17 16:45 | P.GSCN ---
History of Present Illness Consult date: 01/17/25 Reason for Consult: Coronary artery disease, non-ST elevated myocardial infarction this admission Requesting physician: Zay Mccabe History of present illness: This is a 74-year-old gentleman who follows on an outpatient basis with Dr. Tony Vaughan for his primary care. He has a past medical history significant for coronary artery disease and underwent stent placements to his left anterior descending coronary artery and circumflex coronary artery in August 2017, hypertension, dyslipidemia, ST elevated myocardial infarction in 2016, status post and obesity with a BMI of 33.1 kg/m. According to the patient he was at [facility] yesterday January 16, 2025 when he developed some chest tightness, some dizziness and experienced some shortness of breath. Due to the patient's symptoms a parishioner called EMS and he was subsequently brought to the emergency department here at [facility] for further evaluation and treatment recommendations. He denies any recent fever, chills, nausea, vomiting, palpitations, syncope, headache, visual disturbances, constipation, or diarrhea. Initial laboratory results showed a WBC count of 7.52, hemoglobin 14.6, hematocrit 42.4, platelets 255, PT 10.7, INR 1.0, PTT 25.3, D-dimer 0.26, sodium 137, potassium 4.1, chloride 103, CO2 24, BUN 11, creatinine 0.62, glucose 103, magnesium 1.6, AST 29, ALT 17, proBNP 1550, and serial troponins were 0.090 and 3.400. A chest x-ray was completed which showed no acute cardiopulmonary disease/process. A twelve-lead EKG was completed which showed sinus tachycardia with a heart rate of 111 bpm. Due to the patient's presenting symptoms and elevated troponins a consult was placed to cardiology. Dr. Bereket Mccabe from cardiology recommended the patient undergo a cardiac catheterization which was completed today January 17, 2025. The cardiac catheterization revealed severe three-vessel coronary artery disease with an 80 to 90% stenosis to his left anterior descending coronary artery, a 95% stenosis to the ostial cir cumflex coronary artery, a 70 to 80% stenosis to his proximal right coronary artery, a 60% stenosis to his mid right coronary artery, a 70% stenosis to the ostium of the PLV coronary artery and a 50 to 60% stenosis to his PDA coronary artery. Subsequently, due to the findings on the cardiac catheterization, the results were discussed with the patient and a consult was placed to Dr. Abhay Arana from cardiothoracic surgery for further evaluation and treatment recommendations including myocardial revascularization surgery. Review of Systems A review of systems was completed and was negative except as mentioned in the HPI. Past Medical History Past Medical History: Coronary Artery Disease (CAD), Chest Pain / Angina, Hyperlipidemia, Hypertension, Myocardial Infarction ([place]) Additional Past Medical History / Comment(s): 08/13/17 STEMI Last Myocardial Infarction Date:: 08/13/17 History of Any Multi-Drug Resistant Organisms: None Reported Past Surgical History: Appendectomy, Heart Catheterization With Stent, Tonsillectomy Additional Past Surgical History / Comment(s): 08-13-17 HEART CATH W/ STENT TO LT CIRC. Past Anesthesia/Blood Transfusion Reactions: No Reported Reaction Date of Last Stent Placement:: 08/13/17 Past Psychological History: No Psychological Hx Reported Smoking Status: Never smoker Past Alcohol Use History: None Reported Past Drug Use History: None Reported - Past Family History Father Family Medical History: Myocardial Infarction ([place]) Mother Additional Family Medical History / Comment(s): " Ruptured liver from a motor vehicle accident" Medications and Allergies Home Medications Medication Instructions Recorded Confirmed Type No Known Home Medications 01/16/25 01/16/25 History Allergies Allergy/AdvReac Type Severity Reaction Status Date / Time No Known Allergies Allergy Verified 01/16/25 12:15 Surgical - Exam Vital Signs Temp Pulse Resp BP Pulse Ox 97.9 F 115 H 20 140/86 100 01/16/25 11:08 01/16/25 11:08 01/16/25 11:08 01/16/25 11:08 01/16/25 11:08 - General well developed, well nourished, no distress, no pain, chronically ill, obese - Eyes PERRL, normal ocular movement, no pale, no icteric - ENT normal pinna, normal nares, normal mucosa, no hearing loss, no congestion, poor nursing home - Neck Neck is supple, no lymphadenopathy. no masses, no bruits, trachea midline, no venous distension - Respiratory Lung sounds essentially clear throughout. No wheezes, rhonchi or crackles. Respirations are symmetrical and nonlabored. - Cardiovascular Regular rhythm and rate. S1 and S2 present, negative for S3 or gallop. Positive systolic murmur 3/6 heard best to his left sternal border. - Abdomen Abdomen is soft, nontender and nondistended. Active bowel sounds present all 4 abdominal quadrants. No guarding or rigidity. - Genitourinary Deferred - Rectum Deferred - Integumentary Skin is warm and dry. No clubbing or cyanosis is present. +1 to +2 edema to his bilateral lower extremities. no rash, no growths, no abnormal pigmentation - Neurologic No focal deficits. normal coordination - Musculoskeletal Moves all 4 extremities with equal strength bilateral. - Psychiatric oriented to time, oriented to person, oriented to place, no speech is normal (Slow to respond, episodes of forgetfulness), no memory intact Results - Labs 01/17/25 07:58 01/17/25 08:03 Abnormal Lab Results - Last 24 Hours (Table) 01/16/25 01/16/25 01/16/25 Range/Units 12:03 16:34 19:15 RBC (4.40-5.60) 10*6/uL APTT 40.9 H (22.0-30.0) sec Troponin I 0.090 H* 3.400 H* (0.000-0.034) ng/mL 01/17/25 Range/Units 07:58 RBC 4.36 L (4.40-5.60) 10*6/uL APTT (22.0-30.0) sec Troponin I (0.000-0.034) ng/mL Diabetes panel 01/17/25 Range/Units 08:03 Triglycerides 139.00 (0.00-149.00) mg/dL HDL Cholesterol 45.40 (40.00-60.00) mg/dL Thyroid panel 01/16/25 Range/Units 12:03 TSH 3.740 (0.465-4.680) mIU/L Pituitary panel 01/16/25 Range/Units 12:03 TSH 3.740 (0.465-4.680) mIU/L - Imaging Chest x-ray: report reviewed, image reviewed Assessment and Plan Assessment: Multivessel coronary artery disease Non-ST elevated myocardial infarction this admission History of coronary artery disease with previous stent placement to his circu mflex coronary artery and left anterior descending coronary artery in August, History of ST elevated myocardial infarction in 2017 Hypertension Hyperlipidemia, treated, cholesterol 174, LDL 100.8, triglycerides 139 Obesity with a BMI of 33.1 kg/m Lifetime non-smoker Plan: The patient was seen and examined at his bedside in the extended stay unit. His chart and diagnostics were reviewed. His case will be discussed in detail with Dr. Abhay Arana from cardiothoracic surgery. Preoperative teaching and preoperative testing has been initiated. Continue to optimize medical management with aspirin, statin and beta-trixie. Heparin drip management per cardiology recommendations. The usual course of myocardial vascularization surgery was discussed in detail with the patient. A clinical frailty score was completed which equaled 2. Once the patient is able to ambulate a 5 m walk test will be completed with the patient. Once the patient's preoperative testing has been completed and results obtained an STS risk or will be calculated and discussed with the patient. Once Dr. Arana has seen and examined the patient more recommendations to follow based on patient's clinical course. Medical management of other comorbidities per primary care and cardiology recommendations. Obtain transthoracic 2D echocardiogram. We will consult neurology for the patient's complaints of dizziness and also his delayed responses. Unsure if this is the patient's baseline, tried to get a hold of family member listed on his demographics with no return call. Also consult social work for assessment of patient's living status and help with reaching family. Thank you Dr. Mccabe for this consult and we look forward to working with you in the care of this patient. I have personally seen and examined the patient, performed the documentation and the assessment and plan as written. Number of minutes spent on the visit: 30. ROBERT Coombs
--- NOTE | 2025-01-17 17:44 | CT ---
EXAMINATION TYPE: CT chest wo con CT DLP: 472.1 mGycm, Automated exposure control for dose reduction was used. DATE OF EXAM: 01/17/2025 5:32 PM COMPARISON: Chest radiograph 01/16/2025 CLINICAL INDICATION:Male, 74 years old with history of Preop cardiac surgery, evaluate aorta; PHH, Pr eop cardiac surgery, evaluate aorta TECHNIQUE: Multiple axial images were obtained through the chest without IV contrast. Lack of IV or o ral contrast limits evaluation of solid and hollow organ viscera. . Coronal and sagittal reformats re viewed. FINDINGS: LUNGS/ PLEURA: No pleural effusion, pneumothorax, focal consolidation. Dependent bilateral lower lobe subsegmental linear atelectasis. Anterior right upper lobe 4 mm groundglass pulmonary nodule (series 205, image 24). Right middle lobe 1 mm pulmonary nodule (series 205, image 39). Superior segment rig ht lower lobe calcified granuloma. AIRWAY: Patent and unremarkable.. HEART: Prominent in size.Small aortic valvular and mitral annulus calcifications.. No pericardial effusion. Moderate coronary artery calcifications present. MEDIASTINUM: No gross evidence of adenopathy. VASCULATURE: No aortic aneurysm. Conventional three-vessel aortic arch. Mild atelectatic calcificati on of the aorta and its branches. MUSCULOSKELETAL: No acute osseous abnormalities. DISH of the thoracic spine. SOFT TISSUES/LYMPH NODES: Unremarkable. LOWER NECK: No significant findings. UPPER ABDOMEN: Cholelithiasis. Contrast demonstrate within both renal collecting systems from prior e xam. Tiny hiatal hernia. IMPRESSION: 1. No acute thoracic process. 2. Mild atherosclerotic calcification of the aorta and its branches. Moderate coronary artery calcifi cations. Small aortic valvular and mitral anulus calcifications. 3. Couple pulmonary nodules measuring up to 4 mm. According to Fleischner's criteria in a low-risk pa tient no follow-up is recommended. In a high-risk patient consider additional CT chest 12 months. 4. Cholelithiasis. [facility], , 01/17/2025 5:41 PM
[2025-01-17 18:56] LABS: Hepatitis A Antibody IgM Nonreactive (Nonreactive); Hepatitis B Core IgM Nonreactive (Nonreactive); Hepatitis B Surface Antigen Nonreactive (Nonreactive); Hepatitis C IgG Antibody Nonreactive (Nonreactive)
[2025-01-17] MEDS: ATORVASTATIN 40 MG TAB PO SCH (19:43)
[2025-01-17] MEDS: ALPRAZolam 0.25 MG TAB PO PRN (19:43)
[2025-01-17] MEDS: MUPIROCIN 2% OINT 22 GM TUBE NASAL SCH (21:50)
[2025-01-17] MEDS: ONDANSETRON 4 MG/2 ML VIAL IVP PRN (22:36)
[2025-01-18] MEDS: NITROGLYCERIN SL TABS 0.4 MG TAB SUBLINGUAL PRN (03:41)
[2025-01-18] MEDS ORDERED: HEPARIN SODIUM,PORCINE (1 ML) 2,500 UNIT in SODIUM CHLORIDE 0.9% 250 ML IRRIGATION PRN (07:00)
[2025-01-18] MEDS ORDERED: HEPARIN SODIUM,PORCINE 10,000 UNIT in SODIUM CHLORIDE 0.9% 1,000 ML IRRIGATION PRN (07:00)
[2025-01-18 07:36] LABS: Basophils # (A) 0.04 10*3/uL (0.00-0.10); Basophils % (A) 0.5 %; Eosinophils # (A) 0.04 10*3/uL (0.04-0.35); Eosinophils % (A) 0.5 %; HCT 39.5 % (39.6-50.0); HGB 13.2 g/dL (13.0-17.0); Lymphocytes # (A) 1.75 10*3/uL (0.90-5.00); Lymphocytes % (A) 23.6 %; MCH 30.9 pg (27.0-32.0); MCHC 33.4 g/dL (32.0-37.0); MCV 92.5 fL (80.0-97.0); Mean Platelet Volume 11.1 fL (9.5-12.2); Monocytes # (A) 0.58 10*3/uL (0.20-1.00); Monocytes % (A) 7.8 %; Neutrophils # (A) 4.97 10*3/uL (1.80-7.70); Neutrophils % (A) 67.3 %; Platelet Count 236 10*3/uL (140-440); RBC 4.27 10*6/uL (4.40-5.60); RDW 14.4 % (11.5-14.5)
[2025-01-18 07:47] LABS: African American GFR (CKD) >90 (>60 ml/min/1.73 sqM); Anion Gap 5 mmol/L; Blood Urea Nitrogen 10 mg/dL (9-20); Calcium 8.9 mg/dL (8.4-10.2); Carbon Dioxide 26 mmol/L (22-30); Chloride 105 mmol/L (98-107); Glucose 97 mg/dL (74-99); Non-African American GFR(CKD) 86 (>60 ml/min/1.73 sqM); Potassium 4.1 mmol/L (3.5-5.1); Sodium 136 mmol/L (137-145)
[2025-01-18] MEDS: METOPROLOL SUCCINATE (ER) 25 MG TAB.ER.24H PO SCH (09:17)
[2025-01-18] MEDS: ISOSORBIDE MONONITRATE ER 30 MG TAB.ER.24H PO SCH (09:17)
--- NOTE | 2025-01-18 09:43 | P.PN ---
Subjective Progress Note Date: 01/18/25 Principal diagnosis: Multivessel coronary artery disease, non-ST elevated myocardial infarction this admission. History of coronary artery disease with myocardial infarction and p revious stent placement to his circumflex coronary artery and left anterior descending coronary artery in August 2017, hypertension, hyperlipidemia, obesity, lifetime non-smoker The patient was seen and examined this morning sitting up in bed on the cardiac stepdown unit in no acute distress. He denies any chest pain or shortness of breath currently although he apparently had an episode of chest pain with nausea last night after getting up to the bathroom. This pain was relieved with sublin gual nitro and Zofran. The patient was seen and examined yesterday by Dr. Arana, at that time patient did not seem to understand the course of myocardial revascularization surgery. Dr. Arana attempted to discuss surgery multiple different ways, patient continued to have very poor understanding of expectations. Apparently he does not drive and takes a city bus. He does appear slow to respond. The patient's brother returned phone call last night to nursing and stated patient is a bit mentally handicapped. The patient was felt to be very high risk for surgery, specifically from a recovery standpoint. This was discussed between Dr. Arana and Dr. Mccabe with Dr. Mccabe in agreement. Objective - Vital Signs Vital signs: Vital Signs Temp 98.1 F 01/18/25 08:56 Pulse 93 01/18/25 08:56 Resp 16 01/18/25 08:56 BP 117/75 01/18/25 08:56 Pulse Ox 97 01/18/25 08:56 FiO2 Intake & Output 01/17/25 01/18/25 01/18/25 18:59 06:59 18:59 Intake Total 1081.794 10 10 Output Total 525 Balance 556.794 10 10 Weight 98.883 kg Intake: IV 710 10 10 Invasive Line 1 10 10 10 Intake, IV Titration 131.794 Amount Heparin Sod,Pork in 0.45% 131.794 NaCl 25,000 unit In 0.45 % NaCl 1 250ml.bag @ 10. 11 UNITS/KG/HR 9.997 mls/ hr IV .Q24H [facility] Rx#: [id number] Oral 240 Output: Urine 525 Other: Voiding Method Urinal Urinal Urinal Diaper Diaper Diaper # Voids 1 1 - Exam CONSTITUTIONAL: Appears comfortable, cooperative, no acute distress RESPIRATORY: Lungs sounds diminished bilaterally. Respirations even, nonlabored. Currently on 2 L nasal cannula with oxygen saturation 100% CARDIOVASCULAR: S1, S2 present. Regular rate and rhythm, sinus rhythm on t elemetry. Palpable peripheral pulses bilaterally. No edema present. No calf pain or tenderness noted GASTROINTESTINAL: Abdomen soft, nontender, nondistended. Active bowel sounds present 4 quadrants. Tolerating diet, currently n.p.o. GENITOURINARY: Continues to void although incontinent at times INTEGUMENTARY: Skin is warm and dry NEUROLOGIC: Cranial nerves II through XII intact MUSKULOSKELETAL: Able to move all extremities, strength equal bilaterally PSYCHIATRIC: Alert and oriented to person place and time - Allied health notes Allied health notes reviewed: nursing - Labs CBC & Chem 7: 01/18/25 06:07 01/18/25 06:07 Labs: Abnormal Lab Results - Last 24 Hours (Table) 01/17/25 01/17/25 01/17/25 Range/Units 07:58 08:03 14:30 RBC (4.40-5.60) 10*6/uL Hct (39.6-50.0) % APTT (22.0-30.0) sec Sodium 133 L (137-145) mmol/L Chloride 97 L (98-107) mmol/L Creatinine 0.61 L (0.66-1.25) mg/dL Magnesium 1.5 L (1.6-2.3) mg/dL AST 81 H (17-59) U/L Troponin I 12.200 H* (0.000-0.034) ng/mL Total Protein 6.1 L (6.3-8.2) g/dL Ur Specific [place] >1.050 H (1.001-1.035) Urine Glucose (UA) Trace H (Negative) 01/17/25 01/18/25 01/18/25 Range/Units 22:00 06:07 06:07 RBC 4.27 L (4.40-5.60) 10*6/uL Hct 39.5 L (39.6-50.0) % APTT 39.7 H (22.0-30.0) sec Sodium 136 L (137-145) mmol/L Chloride (98-107) mmol/L Creatinine (0.66-1.25) mg/dL Magnesium (1.6-2.3) mg/dL AST (17-59) U/L Troponin I (0.000-0.034) ng/mL Total Protein (6.3-8.2) g/dL Ur Specific [place] (1.001-1.035) Urine Glucose (UA) (Negative) 01/18/25 01/18/25 Range/Units 06:07 06:07 RBC (4.40-5.60) 10*6/uL Hct (39.6-50.0) % APTT 38.0 H (22.0-30.0) sec Sodium (137-145) mmol/L Chloride (98-107) mmol/L Creatinine (0.66-1.25) mg/dL Magnesium (1.6-2.3) mg/dL AST (17-59) U/L Troponin I 6.460 H* (0.000-0.034) ng/mL Total Protein (6.3-8.2) g/dL Ur Specific [place] (1.001-1.035) Urine Glucose (UA) (Negative) Assessment and Plan Assessment: Multivessel coronary artery disease, non-ST elevated myocardial infarction this admission History of coronary artery disease with myocardial infarction and previous stent placement to Cx and LAD in August 2017 Hypertension Hyperlipidemia, cholesterol 174, LDL 100.8, triglycerides 139 Obesity Lifetime non-smoker Plan: Continue to maximize medical therapy with aspirin, statin, beta-trixie Increase activity as tolerated Neurology was consulted for dizziness and delayed responses Patient considered to be high risk for surgical revascularization at this time, discussed with Dr. Mccabe by Dr. Arana Continued medical management per internal medicine, cardiology Will continue to follow along
--- NOTE | 2025-01-18 11:22 | P.PN ---
Subjective HISTORY OF PRESENT ILLNESS: This is a 74-year-old male with a past medical history significant for coronary artery disease with previous stenting of the circumflex of the LAD, hypertension, and hyperlipidemia. Patient used to follow in the office with Dr. Guillen but has not been seen since October 2019. We have been asked to see the patient in consultation for chest pain. Patient examined at the bedside in the emergency room. Patient states that [facility] was [facility] when he began to have chest discomfort. He states the pain was in the middle of the chest. He denied any radiation of the pain. He also reported having some dizziness. The patient was found to have elevated troponins and was started on IV heparin. At the time of examination he denies any chest pain or pressure. Bedside telemetry reveals sinus mechanism. DIAGNOSTICS: - EKG reveals sinus tachycardia with no signs of acute ischemia. - Chest xray negative for acute process - Laboratory data: WBC 6.7. Hemoglobin 13.4. Platelet count 217. D-dimer 0.26. Sodium 137. Potassium 4.1. BUN 11. Creatinine 0.62. Troponin 0.090. 3.400. proBNP 1550. TSH 3.740. - Current home cardiac medications include none. - Most recent echocardiogram obtained in July 2017 revealing ejection fraction 60 to 65% with mild TR - Cardiac catheterization history: July 2017 with stenting of the proximal left circumflex. - Repeat cardiac catheterization performed in August 2017 with stenting of the LAD 01/18/2025 Patient is status post cardiac catheterization yesterday with Dr. Mccabe revealing RCA stenosis at its worst 70 to 80%. There is mid RCA lesion of 60% and divides into PDA and PLV. Ostium of the PLV has 70% stenosis and PDA has 50 to 60% stenosis. Left main artery appears calcified. There is distal left main plaque. Circumflex coronary artery reveals 95% ostial stenosis. LAD has 80 to 90% stenosis proximally in the ostial portion. CT surgery was consulted for evaluation. Patient examined this morning at the bedside. Patient currently denies chest pain or pressure. He denies shortness of breath. Vital signs are stable. Telemetry reveals sinus mechanism. Patient's brother is at the bedside. Patient's brother states that patient is at his baseline. He states that the patient is " somewhat handicapped" and " takes a long time to process what people are saying". He states that the patient has lived on his own independently for many years and takes care of himself and makes all his own medical decisions. 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 He states he is not able to drive because his reaction times are too slow and cannot make sudden decisions. PHYSICAL EXAM: VITAL SIGNS: Reviewed. GENERAL: Well-developed in no acute distress. HEENT: Head is normocephalic. Pupils are equal, round. Sclerae anicteric. Mucous membranes of the mouth are moist. Neck supple. No JVD or thyromegaly LUNGS: Respirations even and unlabored. Lungs essentially clear to auscultation bilaterally. HEART: Regular rate and rhythm. S1 and S2 heard. ABDOMEN: Soft. Nondistended. Nontender. EXTREMITIES: Normal range of motion. No clubbing or cyanosis. Peripheral puls es intact. No lower extremity edema NEUROLOGIC: Awake and alert. Oriented x 3. ASSESSMENT: Non-STEMI, status post cardiac catheterization revealing triple-vessel disease Coronary artery disease with previous stenting of circumflex and LAD, 2017 Hypertension Hyperlipidemia Obesity: BMI 33.1 Developmental delay, at baseline per patients brother PLAN: 2D echo ordered. Await results. Continue IV heparin Continue aspirin, atorvastatin, and metoprolol Dr. Lobato reviewed films and patient is not thought to be a good candidate for PCI. Case discussed again with CT surgery who will reevaluate patient today. Further recommendations pending patient course Nurse practitioner note has been reviewed by physician. Signing provider agrees with the documented findings, assessment, and plan of care documented by [employer] as a scribe. Objective - Vital Signs Vital signs: Vital Signs Temp 98.1 F 01/18/25 08:56 Pulse 93 01/18/25 08:56 Resp 16 01/18/25 08:56 BP 117/75 01/18/25 08:56 Pulse Ox 97 01/18/25 08:56 FiO2 Intake & Output 01/17/25 01/18/25 01/18/25 18:59 06:59 18:59 Intake Total 1081.794 10 183.448 Output Total 525 Balance 556.794 10 183.448 Weight 98.883 kg Intake: IV 710 10 10 Invasive Line 1 10 10 10 Intake, IV Titration 131.794 173.448 Amount Heparin Sod,Pork in 0.45% 131.794 173.448 NaCl 25,000 unit In 0.45 % NaCl 1 250ml.bag @ 10. 11 UNITS/KG/HR 9.997 mls/ hr IV .Q24H [facility] Rx#: [id number] Oral 240 Output: Urine 525 Other: Voiding Method Urinal Urinal Urinal Diaper Diaper Diaper # Voids 1 1 - Labs CBC & Chem 7: 01/18/25 06:07 01/18/25 06:07 Labs: Abnormal Lab Results - Last 24 Hours (Table) 01/17/25 01/17/25 01/17/25 Range/Units 07:58 08:03 14:30 RBC (4.40-5.60) 10*6/uL Hct (39.6-50.0) % APTT (22.0-30.0) sec Sodium 133 L (137-145) mmol/L Chloride 97 L (98-107) mmol/L Creatinine 0.61 L (0.66-1.25) mg/dL Magnesium 1.5 L (1.6-2.3) mg/dL AST 81 H (17-59) U/L Troponin I 12.200 H* (0.000-0.034) ng/mL Total Protein 6.1 L (6.3-8.2) g/dL Ur Specific [place] >1.050 H (1.001-1.035) Urine Glucose (UA) Trace H (Negative) 01/17/25 01/18/25 01/18/25 Range/Units 22:00 06:07 06:07 RBC 4.27 L (4.40-5.60) 10*6/uL Hct 39.5 L (39.6-50.0) % APTT 39.7 H (22.0-30.0) sec Sodium 136 L (137-145) mmol/L Chloride (98-107) mmol/L Creatinine (0.66-1.25) mg/dL Magnesium (1.6-2.3) mg/dL AST (17-59) U/L Troponin I (0.000-0.034) ng/mL Total Protein (6.3-8.2) g/dL Ur Specific [place] (1.001-1.035) Urine Glucose (UA) (Negative) 01/18/25 01/18/25 Range/Units 06:07 06:07 RBC (4.40-5.60) 10*6/uL Hct (39.6-50.0) % APTT 38.0 H (22.0-30.0) sec Sodium (137-145) mmol/L Chloride (98-107) mmol/L Creatinine (0.66-1.25) mg/dL Magnesium (1.6-2.3) mg/dL AST (17-59) U/L Troponin I 6.460 H* (0.000-0.034) ng/mL Total Protein (6.3-8.2) g/dL Ur Specific [place] (1.001-1.035) Urine Glucose (UA) (Negative)
--- NOTE | 2025-01-18 13:04 | P.PN ---
Subjective Progress Note Date: 01/18/25 01/17/2025 this is 74-year-old gentleman, follows with [facility] with past medical history significant for CAD, MN with stents of the circumflex and LAD, morbid obesity, hypertension, hyperlipidemia and multiple other medical issues brought into the ER via EMS from [facility] yesterday secondary to complaints of chest pain. Patient reports during [facility] he developed midsternal chest pain/tingling, nonradiating accompanied by increased shortness of breath and lightheadedness. Denies nausea, vomiting or diarrhea.denies abdominal pain.Patient responds slowly but appropriate;baseline as per PCP.Does not drive, [facility]. Patient was initiated on IV heparin drip related to elevated troponins. EKG reported sinus tachycardia. Troponins 0.090, 3.400. D-dimer WNL, 0.26. Afebrile, normal WBC, hemoglobin 14.6, platelets 255, INR 1. 137, potassium 4 1, bicarb 24, creatinine 0.62, glucose 103, magnesium 1.6. proBNP 1550, TSH 3.740. Viral studies negative. Chest x-ray reported no acute cardiopulmonary disease/process. Currently denies chest pain, palpitations or shortness of breath.Maintaining O2 sats in the high 90s to 100% on room air. 01/18/2025 completed cardiac catheterization yesterday reported severe triple- vessel disease; proximal RCA 70 to 80% stenosis, mid RCA 60% stenosis,Ostium of the PLV 70% and PDA has 50 to 60% stenosis. Circumflex coronary artery 95% ostial stenosis. LAD 80 to 90% stenosis proximally in the ostial portion. LV function/echo pending. Evaluated by cardiothoracic surgery yesterday, felt to be high risk candidate. Brother Arvind at bedside, disclosed that patient had run out of medications, timeframe unknown. Currently denies chest pain, palpitations or shortness of breath. Telemetry sinus rhythm. Objective - Vital Signs Vital signs: Vital Signs Temp 98.1 F 01/18/25 08:56 Pulse 93 01/18/25 08:56 Resp 16 01/18/25 08:56 BP 117/75 01/18/25 08:56 Pulse Ox 97 01/18/25 08:56 FiO2 Intake & Output 01/17/25 01/18/25 01/18/25 18:59 06:59 18:59 Intake Total 1081.794 10 183.448 Output Total 525 Balance 556.794 10 183.448 Weight 98.883 kg Intake: IV 710 10 10 Invasive Line 1 10 10 10 Intake, IV Titration 131.794 173.448 Amount Heparin Sod,Pork in 0.45% 131.794 173.448 NaCl 25,000 unit In 0.45 % NaCl 1 250ml.bag @ 10. 11 UNITS/KG/HR 9.997 mls/ hr IV .Q24H [facility] Rx#: [id number] Oral 240 Output: Urine 525 Other: Voiding Method Urinal Urinal Urinal Diaper Diaper Diaper # Voids 1 1 - Exam PHYSICAL EXAM: VITAL SIGNS: [Reviewed] GENERAL: Obese 74-year-old male, alert and oriented x 3 sitting up in chair, no acute distress. HEENT: Normocephalic, atraumatic, conjunctivae normal. eyes normal. NECK: Supple, no JVD. CARDIOVASCULAR: S1, S2 regular. No murmur RESPIRATION: Unlabored, equal air entry,CTA with bilateral bases diminished. ABDOMEN: Soft, nondistended, nontender . No guarding. no masses noted. +bs. LEGS: No edema. no swelling, no clubbing, no cyanosis, no calf tenderness.+DPs. NERVOUS SYSTEM: Cranial N 2-12 grossly normal. No focal deficits. Strength and sensation grossly intact. Skin: Warm and dry, no rashes noted. - Labs CBC & Chem 7: 01/18/25 06:07 01/18/25 06:07 Labs: Abnormal Lab Results - Last 24 Hours (Table) 01/17/25 01/17/25 01/17/25 Range/Units 07:58 08:03 14:30 RBC (4.40-5.60) 10*6/uL Hct (39.6-50.0) % APTT (22.0-30.0) sec Sodium 133 L (137-145) mmol/L Chloride 97 L (98-107) mmol/L Creatinine 0.61 L (0.66-1.25) mg/dL Magnesium 1.5 L (1.6-2.3) mg/dL AST 81 H (17-59) U/L Troponin I 12.200 H* (0.000-0.034) ng/mL Total Protein 6.1 L (6.3-8.2) g/dL Ur Specific [place] >1.050 H (1.001-1.035) Urine Glucose (UA) Trace H (Negative) 01/17/25 01/18/25 01/18/25 Range/Units 22:00 06:07 06:07 RBC 4.27 L (4.40-5.60) 10*6/uL Hct 39.5 L (39.6-50.0) % APTT 39.7 H (22.0-30.0) sec Sodium 136 L (137-145) mmol/L Chloride (98-107) mmol/L Creatinine (0.66-1.25) mg/dL Magnesium (1.6-2.3) mg/dL AST (17-59) U/L Troponin I (0.000-0.034) ng/mL Total Protein (6.3-8.2) g/dL Ur Specific [place] (1.001-1.035) Urine Glucose (UA) (Negative) 01/18/25 01/18/25 Range/Units 06:07 06:07 RBC (4.40-5.60) 10*6/uL Hct (39.6-50.0) % APTT 38.0 H (22.0-30.0) sec Sodium (137-145) mmol/L Chloride (98-107) mmol/L Creatinine (0.66-1.25) mg/dL Magnesium (1.6-2.3) mg/dL AST (17-59) U/L Troponin I 6.460 H* (0.000-0.034) ng/mL Total Protein (6.3-8.2) g/dL Ur Specific [place] (1.001-1.035) Urine Glucose (UA) (Negative) Assessment and Plan Assessment: NSTEMI, status post cardiac catheterization reporting triple-vessel disease CAD with history of MN 2017, stenting of circumflex and LAD, current ran out of his medications-states unclear on timeframe. Last refill RX recorded at [facility] as October 2019. Developmentally delayed, at baseline per PCP and patient's brother Arvind. Follows with [facility]. Hypertension Hyperlipidemia Morbid obesity, BMI 33 Plan: Continue current medication resume ,monitoring and symptomatic treatment. Echo pending. CTS to reevaluate; brother at bedside. Maintain anticoagulation with IV heparin. aspirin statin beta-trixie IV fluid hydration. [facility]'s [facility]-director case Mckinley Grubbs,needs increased assistance, including ensuring/monitoring his medications/follow-up visits. Prognosis guarded given multiple complex medical issues. Cardiac catheterization verbally reported as triple-vessel disease with cardiothoracic surgery consulted. The impression and plan of care has been dictated as directed. : I performed a history and examination of this patient, discussed the same with the dictator. I agree with the dictator's note ,documented as a scribe. Any additional findings or plans will be noted.
--- NOTE | 2025-01-18 18:00 | P.CNNES ---
History of Present Illness Consult date: 01/18/25 Requesting physician: Gold Davalos Reason for Consult: dizziness, delayed responses History of Present Illness: Patient is a 74-year-old male with history of mild developmental delays, came to the hospital by ambulance 2 days ago, 01/16/2025 at 11:03 AM for dizziness. Patient states on Friday, he was in [employer], standing, when he developed dizziness that lasted for about 10 minutes. He described it as vertigo, everything spinning. Also had chest tightness with it. One of the attendant called the EMS and he was brought to the hospital. Patient states all symptoms lasted for 10 minutes and then went away. Denies any slurred speech facial droop, any numbness tingling focal weakness, nausea vomiting or any visual problem. Patient states he has never had experienced vertigo before, although per EMS flowsheet, he had a few incidents in the past. Patient was not very clear despite asking multiple times. He said that he had couple spells in the past, lasting for 5 minutes and could not tell what he was doing at those time. Later he said he had only 1 spell which prompted him to come to the hospital. He states he lives by himself, has no children. Never . He does have 5 siblings. At home he uses cane to support himself for last 2 months. Patient denies any recent upper respiratory infection, any tinnitus, hearing loss, pain pressure or pops in the ear. He denies any headache or any abdominal pain. No previous history of strokes or TIA. Denies history of hypertension or diabetes, never smoked does not drink alcohol. Patient currently not on any medication at home. As per EMS flowsheet when they arrived, patient was sitting up on a bench alert oriented x 4. He was communicating clearly with no distress. Patient mentioned that for more than a week but less than 2 weeks, he has been having episodes of vertigo with weakness. He says he has several of these a day, some episodes but not all, with nausea and during 1 episode he suffered syncopal episode. Patient's vitals at the scene was blood pressure 133/81, pulse rate 114 respiration 15 saturation 89%. EKG showed atrial fibrillation. Vital signs on arrival blood pressure 140/86 pulse rate 115 temperature 97.9. Blood test shows normal CBC, PT PTT, normal CMP, troponin slightly elevated 0.090. TSH is normal at 3.74. Influenza, RSV and coronavirus PCR negative. UA is negative. EKG showed sinus tachycardia. Chest CT showed no acute thoracic process. Mild atherosclerotic calcification of the aorta and its branches. Moderate coronary artery calcification. Small aortic valvular and mitral annular calcifications Review of Systems All pertinent positive and negative review of systems mentioned in the HPI, otherwise unremarkable. Past Medical History Past Medical History: Myocardial Infarction ([place]) Additional Past Medical History / Comment(s): 08/13/17 STEMI Last Myocardial Infarction Date:: 08/13/17 History of Any Multi-Drug Resistant Organisms: None Reported Past Surgical History: Appendectomy, Heart Catheterization With Stent Additional Past Surgical History / Comment(s): 08-13-17 HEART CATH W/ STENT TO LT CIRC. Past Anesthesia/Blood Transfusion Reactions: No Reported Reaction Date of Last Stent Placement:: 08/13/17 Past Psychological History: No Psychological Hx Reported Smoking Status: Never smoker Past Alcohol Use History: None Reported Past Drug Use History: None Reported - Past Family History Father History Unknown: Yes Family Medical History: Myocardial Infarction ([place]) Mother History Unknown: Yes Additional Family Medical History / Comment(s): " Ruptured liver from a motor vehicle accident" Medications and Allergies Home Medications Medication Instructions Recorded Confirmed Type No Known Home Medications 01/16/25 01/16/25 History Allergies Allergy/AdvReac Type Severity Reaction Status Date / Time No Known Allergies Allergy Verified 01/16/25 12:15 Physical Examination - Vital Signs Vital Signs: Vital Signs Temp Pulse Resp BP Pulse Ox 01/18/25 12:08 97.7 F 83 16 107/56 99 01/18/25 08:56 98.1 F 93 16 117/75 97 01/18/25 03:54 114/75 01/18/25 03:45 122/80 01/18/25 03:35 101 H 16 104/71 100 01/18/25 00:00 97.7 F 104 H 16 101/60 97 01/17/25 19:59 100 18 108/69 99 01/17/25 15:37 97.9 F 84 18 106/61 100 01/17/25 13:45 80 18 106/61 100 Intake and Output 01/17/25 01/18/25 01/18/25 22:59 06:59 14:59 Intake Total 260 183.448 Output Total 275 Balance -15 183.448 Intake: IV 20 10 Invasive Line 1 20 10 Intake, IV Titration 0 173.448 Amount Heparin Sod,Pork in 0.45% 0 173.448 NaCl 25,000 unit In 0.45 % NaCl 1 250ml.bag @ 10. 11 UNITS/KG/HR 9.997 mls/ hr IV .Q24H FERNANDA Rx#: [id number] Oral 240 Output: Urine 275 Other: Voiding Method Urinal Urinal Urinal Diaper Diaper Diaper # Voids 2 1 Weight 98.883 kg Patient is an elderly male, very pleasant, in no acute distress. Patient is alert awake oriented to time place and person. He knows it is December 2024 and that he is in [facility] imported on [place] and name of the current president Mr. Person. Speech and language functions are normal. Patient can name and repeat very well. No aphasia or dysarthria. Attention, concentration is intact and fund of knowledge is somewhat limited. Detailed cognitive functioning testing deferred. On cranial nerve examination, pupils are equal, round and reacting to light, visual pham are full on confrontation, with no neglect on double simultaneous stimulation. Extraocular muscles are intact with no nystagmus. Face is symmetric, tongue protrudes to the midline. Palatal elevation and sensation normal, hearing and shoulder shrug normal, facial sensation normal. On muscle strength testing, there is no pronator drift and the strength is normal in arms and legs distally and proximally. Deep tendon reflexes are (right/left) biceps trace/trace, knee 1/2, ankles trace/trace and plantars are downgoing. Sensory to touch is equal with no neglect on double simultaneous stimulation. Cerebellar function showed no ataxia for [id number] testing. No dys diadochokinesia. No ataxia for [id number] testing on either side. Tone and bulk of muscles normal. Gait deferred.. On general examination, there is no carotid bruit or murmur, S1-S2 audible. Ch est is clear on consultation. Abdomen is soft nontender. No organomegaly, bowel sounds present. Patient has some venous stasis hyperpigmentation in his lower legs. Patient has moderate 2+ peripheral edema. Results - Laboratory Findings CBC and BMP: 01/18/25 06:07 01/18/25 06:07 Abnormal Lab Findings: Abnormal Labs 01/16/25 01/16/25 01/16/25 12:03 12:03 16:34 RBC Hct APTT Sodium Chloride Creatinine 0.62 L Glucose 103 H Magnesium AST Troponin I 0.090 H* 3.400 H* Total Protein Ur Specific Richardson Urine Glucose (UA) 01/16/25 01/17/25 01/17/25 19:15 07:58 07:58 RBC 4.36 L Hct APTT 40.9 H Sodium Chloride Creatinine Glucose Magnesium AST Troponin I 12.200 H* Total Protein Ur Specific Richardson Urine Glucose (UA) 01/17/25 01/17/25 01/17/25 08:03 14:30 22:00 RBC Hct APTT 39.7 H Sodium 133 L Chloride 97 L Creatinine 0.61 L Glucose Magnesium 1.5 L AST 81 H Troponin I Total Protein 6.1 L Ur Specific Richardson >1.050 H Urine Glucose (UA) Trace H 01/18/25 01/18/25 01/18/25 06:07 06:07 06:07 RBC 4.27 L Hct 39.5 L APTT Sodium 136 L Chloride Creatinine Glucose Magnesium AST Troponin I 6.460 H* Total Protein Ur Specific Richardson Urine Glucose (UA) 01/18/25 06:07 RBC Hct APTT 38.0 H Sodium Chloride Creatinine Glucose Magnesium AST Troponin I Total Protein Ur Specific Richardson Urine Glucose (UA) Assessment and Plan Assessment: * Transient vertigo, lasted for 10 minutes. Patient also had chest tightness along with the dizziness/vertigo. Suspect cardiac etiology. TIA also in the differential. * Acute Non-STEMI. Cardiac catheterization revealed triple-vessel disease * History of CAD * Hypertension * Hyperlipidemia * Obesity * Developmental delay Plan: * Carotid Doppler revealed no evidence for hemodynamically significant stenosis. Antegrade flow in both vertebral arteries. * 2D echo completed, results pending. * B12, folate, hemoglobin A1c * Agree with starting aspirin 81 mg, also on Lipitor 40 mg. * Patient currently on heparin IV for non-STEMI. * Patient had a CT head recently on 07/10/2024, which showed no acute intracranial process, nonspecific white matter changes from small vessel ischemic disease. No need to repeat CT head, as examination is nonfocal and symptoms likely cardiac. * Neurology will follow clinically. Thank you for the consult.
--- NOTE | 2025-01-19 09:41 | P.PN ---
Subjective HISTORY OF PRESENT ILLNESS: This is a 74-year-old male with a past medical history significant for coronary artery disease with previous stenting of the circumflex of the LAD, hypertension, and hyperlipidemia. Patient used to follow in the office with Dr. Guillen but has not been seen since October 2019. We have been asked to see the patient in consultation for chest pain. Patient examined at the bedside in the emergency room. Patient states that he was at [employer] yesterday when he began to have chest discomfort. He states the pain was in the middle of the chest. He denied any radiation of the pain. He also reported having some dizziness. The patient was found to have elevated troponins and was started on IV heparin. At the time of examination he denies any chest pain or pressure. Bedside telemetry reveals sinus mechanism. DIAGNOSTICS: - EKG reveals sinus tachycardia with no signs of acute ischemia. - Chest xray negative for acute process - Laboratory data: WBC 6.7. Hemoglobin 13.4. Platelet count 217. D-dimer 0.26. Sodium 137. Potassium 4.1. BUN 11. Creatinine 0.62. Troponin 0.090. 3.400. proBNP 1550. TSH 3.740. - Current home cardiac medications include none. - Most recent echocardiogram obtained in July 2017 revealing ejection fraction 60 to 65% with mild TR - Cardiac catheterization history: July 2017 with stenting of the proximal left circumflex. - Repeat cardiac catheterization performed in August 2017 with stenting of the LAD 01/18/2025 Patient is status post cardiac catheterization yesterday with Dr. Mccabe revealing RCA stenosis at its worst 70 to 80%. There is mid RCA lesion of 60% and divides into PDA and PLV. Ostium of the PLV has 70% stenosis and PDA has 50 to 60% stenosis. Left main artery appears calcified. There is distal left main plaque. Circumflex coronary artery reveals 95% ostial stenosis. LAD has 80 to 90% stenosis proximally in the ostial portion. CT surgery was consulted for evaluation. Patient examined this morning at the bedside. Patient currently denies chest pain or pressure. He denies shortness of breath. Vital signs are stable. Telemetry reveals sinus mechanism. Patient's brother is at the bedside. Patient's brother states that patient is at his baseline. He states that the patient is " somewhat handicapped" and " takes a long time to process what people are saying". He states that the patient has lived on his own independently for many years and takes care of himself and makes all his own medical decisions. He does state that his brother takes the bus frequently and does not have a hook up driver's license as he never driven. He states he is not able to drive because his reaction times are too slow and cannot make sudden decisions. 01/19/2025 Patient examined this morning at bedside. Patient currently denies chest pain or pressure. He denies shortness of breath. Denies dizziness or lightheadedness. Vital signs are stable. He remains on IV heparin. PHYSICAL EXAM: VITAL SIGNS: Reviewed. GENERAL: Well-developed in no acute distress. HEENT: Head is normocephalic. Pupils are equal, round. Sclerae anicteric. Mucous membranes of the mouth are moist. Neck supple. No JVD or thyromegaly LUNGS: Respirations even and unlabored. Lungs essentially clear to auscultation bilaterally. HEART: Regular rate and rhythm. S1 and S2 heard. ABDOMEN: Soft. Nondistended. Nontender. EXTREMITIES: Normal range of motion. No clubbing or cyanosis. Peripheral pulses intact. No lower extremity edema NEUROLOGIC: Awake and alert. Oriented x 3. ASSESSMENT: Non-STEMI, status post cardiac catheterization revealing triple-vessel disease Coronary artery disease with previous stenting of circumflex and LAD, 2017 Hypertension Hyperlipidemia Obesity: BMI 33.1 Developmental delay, at baseline per patients brother PLAN: 2D echo ordered. Await results. Discontinue IV Heparin. Begin subcu heparin. Continue aspirin, atorvastatin, and metoprolol CT surgery following patient. Awaiting further recommendations regarding timing of CABG. Further recommendations pending patient course Nurse practitioner note has been reviewed by physician. Signing provider agrees with the documented findings, assessment, and plan of care documented by BRAKE OPERATOR as a scribe. Objective - Vital Signs Vital signs: Vital Signs Temp 97.8 F 01/19/25 08:00 Pulse 96 01/19/25 08:00 Resp 18 01/19/25 08:00 BP 108/70 01/19/25 08:00 Pulse Ox 97 01/19/25 08:00 FiO2 Intake & Output 01/18/25 01/19/25 01/19/25 18:59 06:59 18:59 Intake Total 369.510 160 Output Total 200 150 Balance 369.510 -40 -150 Intake: IV 10 160 Heparin Sod,Pork in 0.45% 80 NaCl 25,000 unit In 0.45 % NaCl 1 250ml.bag @ 10. 11 UNITS/KG/HR 9.997 mls/ hr IV .Q24H FERNANDA Rx#: [id number] Invasive Line 1 10 Sodium Chloride 0.9% 1, 80 000 ml In Empty Bag 1 bag @ 1 ML/KG/HR 98.883 mls/ hr IV .Q10H7M FERNANDA Rx#: [id number] Intake, IV Titration 239.510 Amount Heparin Sod,Pork in 0.45% 239.510 NaCl 25,000 unit In 0.45 % NaCl 1 250ml.bag @ 10. 11 UNITS/KG/HR 9.997 mls/ hr IV .Q24H FERNANDA Rx#: [id number] Oral 120 Output: Urine 200 150 Other: Voiding Method Urinal Urinal Urinal Diaper Diaper Diaper # Voids 1 1 - Labs CBC & Chem 7: 01/18/25 06:07 01/18/25 06:07 Labs: Abnormal Lab Results - Last 24 Hours (Table) 01/18/25 01/19/25 Range/Units 15:21 06:47 APTT 46.0 H 44.5 H (22.0-30.0) sec Microbiology - Last 24 Hours (Table) 01/17/25 11:40 Nasal Screen MRSA/MSSA - Final Nasal Swab
--- NOTE | 2025-01-19 10:25 | P.PN ---
Subjective Progress Note Date: 01/19/25 Principal diagnosis: Multivessel coronary artery disease, non-ST elevated myocardial infarction this admission. History of coronary artery disease with myocardial infarction and p revious stent placement to his circumflex coronary artery and left anterior descending coronary artery in August 2017, hypertension, hyperlipidemia, obesity, lifetime non-smoker The patient was seen and examined this morning sitting up in bed on the cardiac stepdown unit in no acute distress. He denies any chest pain or shortness of breath currently, he admitted to an episode of chest pain last night which he states he didn't tell his nurse about, it resolved on it's own. The patient was re-evaluated yesterday with brother present. The patient is alert and oriented to person, place, date, and situation. He is slow to respond but his brother states that this is his baseline, the patient has lived on his own for many years and is able to care for himself independently with the exception of driving. Discussed again between Dr. Arana and Dr. Mccabe, will consider surgical myocardial revascularization. Echocardiogram was completed yesterday, report not available yet, will calculate STS risk score once report is available. Patient was seen by neurology with no further recommendations regarding patient's slowness to response. More recommendations to follow. Objective - Vital Signs Vital signs: Vital Signs Temp 97.8 F 01/19/25 08:00 Pulse 96 01/19/25 08:00 Resp 18 01/19/25 08:00 BP 108/70 01/19/25 08:00 Pulse Ox 97 01/19/25 08:00 FiO2 Intake & Output 01/18/25 01/19/25 01/19/25 18:59 06:59 18:59 Intake Total 369.510 160 Output Total 200 150 Balance 369.510 -40 -150 Intake: IV 10 160 Heparin Sod,Pork in 0.45% 80 NaCl 25,000 unit In 0.45 % NaCl 1 250ml.bag @ 10. 11 UNITS/KG/HR 9.997 mls/ hr IV .Q24H FERNANDA Rx#: [id number] Invasive Line 1 10 Sodium Chloride 0.9% 1, 80 000 ml In Empty Bag 1 bag @ 1 ML/KG/HR 98.883 mls/ hr IV .Q10H7M FERNANDA Rx#: [id number] Intake, IV Titration 239.510 Amount Heparin Sod,Pork in 0.45% 239.510 NaCl 25,000 unit In 0.45 % NaCl 1 250ml.bag @ 10. 11 UNITS/KG/HR 9.997 mls/ hr IV .Q24H FERNANDA Rx#: [id number] Oral 120 Output: Urine 200 150 Other: Voiding Method Urinal Urinal Urinal Diaper Diaper Diaper # Voids 1 1 - Exam CONSTITUTIONAL: Appears comfortable, cooperative, no acute distress RESPIRATORY: Lungs sounds diminished bilaterally. Respirations even, nonlabored. Currently on 2 L nasal cannula with oxygen saturation 97%. Able to achieve 1500 mL on incentive spirometry CARDIOVASCULAR: S1, S2 present. Regular rate and rhythm, sinus rhythm on telemetry. Palpable peripheral pulses bilaterally. No edema present. No calf pain or tenderness noted GASTROINTESTINAL: Abdomen soft, nontender, nondistended. Active bowel sounds present 4 quadrants. Tolerating diet GENITOURINARY: Continues to void although incontinent at times INTEGUMENTARY: Skin is warm and dry NEUROLOGIC: Cranial nerves II through XII intact MUSKULOSKELETAL: Able to move all extremities, strength equal bilaterally PSYCHIATRIC: Alert and oriented to person, place, time, and situation - Allied health notes Allied health notes reviewed: nursing - Labs CBC & Chem 7: 01/18/25 06:07 01/18/25 06:07 Labs: Abnormal Lab Results - Last 24 Hours (Table) 01/18/25 01/19/25 Range/Units 15:21 06:47 APTT 46.0 H 44.5 H (22.0-30.0) sec Microbiology - Last 24 Hours (Table) 01/17/25 11:40 Nasal Screen MRSA/MSSA - Final Nasal Swab Assessment and Plan Assessment: Multivessel coronary artery disease, non-ST elevated myocardial infarction this admission History of coronary artery disease with myocardial infarction and previous stent placement to Cx and LAD in August 2017 Hypertension Hyperlipidemia, cholesterol 174, LDL 100.8, triglycerides 139 Obesity Lifetime non-smoker Developmental delay Plan: Continue to maximize medical therapy with aspirin, statin, beta-trixie Increase activity as tolerated Await report from echocardiogram, will calculate STS risk score Likely will plan for surgical myocardial revascularization, timing to be determined Continued medical management per internal medicine, cardiology Will continue to follow along
--- NOTE | 2025-01-19 12:41 | P.PN ---
Subjective Progress Note Date: 01/19/25 01/17/2025 this is 74-year-old gentleman, follows with [facility] with past medical history significant for CAD, PR with stents of the circumflex and LAD, morbid obesity, hypertension, hyperlipidemia and multiple other medical issues brought into the ER via [facility] from [facility] yesterday secondary to complaints of chest pain. Patient reports during [facility] he developed midsternal chest pain/tingling, nonradiating accompanied by increased shortness of breath and lightheadedness. Denies nausea, vomiting or diarrhea.denies abdominal pain.Patient responds slowly but appropriate;baseline as per PCP.Does not drive, uses the [facility] [employer] for transportation. Patient was initiated on IV heparin drip related to elevated troponins. EKG reported sinus tachycardia. Troponins 0.090, 3.400. D-dimer WNL, 0.26. Afebrile, normal WBC, hemoglobin 14.6, platelets 255, INR 1. 137, potassium 4 1, bicarb 24, creatinine 0.62, glucose 103, magnesium 1.6. proBNP 1550, TSH 3.740. Viral studies negative. Chest x-ray reported no acute cardiopulmonary disease/process. Currently denies chest pain, palpitations or shortness of breath.Maintaining O2 sats in the high 90s to 100% on room air. 01/18/2025 completed cardiac catheterization yesterday reported severe triple- vessel disease; proximal RCA 70 to 80% stenosis, mid RCA 60% stenosis,Ostium of the PLV 70% and PDA has 50 to 60% stenosis. Circumflex coronary artery 95% ostial stenosis. LAD 80 to 90% stenosis proximally in the ostial portion. LV function/echo pending. Evaluated by cardiothoracic surgery yesterday, felt to be high risk candidate. Brother Arvind at bedside, disclosed that patient had run out of medications, timeframe unknown. Currently denies chest pain, palpitations or shortness of breath. Telemetry sinus rhythm. 01/19/2025 anticoagulated on IV heparin drip. Maintained on beta-trixie, statin and aspirin. Echo results pending. Telemetry sinus rhythm .denies chest pain, palpitations or shortness of breath. Denies lightheadedness dizziness or focal deficits. Incentive spirometer up to 1999. Objective - Vital Signs Vital signs: Vital Signs Temp 97.7 F 01/19/25 12:00 Pulse 82 01/19/25 12:00 Resp 18 01/19/25 12:00 BP 124/79 01/19/25 12:00 Pulse Ox 98 01/19/25 12:00 FiO2 Intake & Output 01/18/25 01/19/25 01/19/25 18:59 06:59 18:59 Intake Total 369.510 160 Output Total 200 150 Balance 369.510 -40 -150 Intake: IV 10 160 Heparin Sod,Pork in 0.45% 80 NaCl 25,000 unit In 0.45 % NaCl 1 250ml.bag @ 10. 11 UNITS/KG/HR 9.997 mls/ hr IV .Q24H FERNANDA Rx#: [id number] Invasive Line 1 10 Sodium Chloride 0.9% 1, 80 000 ml In Empty Bag 1 bag @ 1 ML/KG/HR 98.883 mls/ hr IV .Q10H7M FERNANDA Rx#: [id number] Intake, IV Titration 239.510 Amount Heparin Sod,Pork in 0.45% 239.510 NaCl 25,000 unit In 0.45 % NaCl 1 250ml.bag @ 10. 11 UNITS/KG/HR 9.997 mls/ hr IV .Q24H FERNANDA Rx#: [id number] Oral 120 Output: Urine 200 150 Other: Voiding Method Urinal Urinal Urinal Diaper Diaper Diaper # Voids 1 1 - Exam PHYSICAL EXAM: VITAL SIGNS: [Reviewed] GENERAL: Obese 74-year-old male, alert and oriented x 3 sitting up in chair, no acute distress. HEENT: Normocephalic, atraumatic, conjunctivae normal. eyes normal. MMM. NECK: Supple, no JVD. CARDIOVASCULAR: S1, S2 regular. No murmur RESPIRATION: Unlabored, equal air entry,CTA with bilateral bases diminished. ABDOMEN: Soft, nondistended, nontender . No guarding. no masses noted. +bs. LEGS: No edema. no swelling, no clubbing, no cyanosis, no calf tenderness.+DPs. NERVOUS SYSTEM: Cranial N 2-12 grossly normal. No focal deficits. Strength and sensation grossly intact. Skin: Warm and dry, no rashes noted. - Labs CBC & Chem 7: 01/18/25 06:07 01/18/25 06:07 Labs: Abnormal Lab Results - Last 24 Hours (Table) 01/18/25 01/19/25 Range/Units 15:21 06:47 APTT 46.0 H 44.5 H (22.0-30.0) sec Microbiology - Last 24 Hours (Table) 01/17/25 11:40 Nasal Screen MRSA/MSSA - Final Nasal Swab Assessment and Plan Assessment: NSTEMI, status post cardiac catheterization reporting triple-vessel disease CAD with history of PR 2017, stenting of circumflex and LAD, current ran out of his medications-states unclear on timeframe. Last refill RX recorded at [facility] as October 2019. Developmental delay, at baseline per PCP and patient's brother Arvind. Follows with [facility]. Hypertension Hyperlipidemia Morbid obesity, BMI 33 Plan: Continue current medication resume ,monitoring and symptomatic treatment. Echo results pending. CTS following/considering CABG procedure. anticoagulatio n with IV heparin. aspirin statin beta-trixie. Hemoglobin A1c 5.4 .prognosis guarded given multiple complex medical issues. Cardiac catheterization verbally reported as triple-vessel disease with cardiothoracic surgery consulted. The impression and plan of care has been dictated as directed. : I performed a history and examination of this patient, discussed the same with the dictator. I agree with the dictator's note ,documented as a scribe. Any additional findings or plans will be noted.
--- NOTE | 2025-01-19 13:47 | CA ---
Transthoracic Echo Report Name: Daniel Pyle Age: 74 Gender: M : 1950 Exam Date: 01/18/2025 14:31 Exam Location: [facility] Ht (in): 68 Wt (lb): 218 Ordering Physician: Gold Davalos Attending/Referring Phys: Anoop LEONARDO Station Installation Supervisor Magi Dial, TYSHAWN Procedure CPT: Indications: evaluate LV fxn and valves Cardiac Hx: Technical Quality: Fair Contrast 1: Definity Total Dose (mL): 2 Contrast 2: Total Dose (mL): MEASUREMENTS (Male / Female) Normal Values 2D ECHO LV Diastolic Diameter PLAX 4.5 cm 4.2 - 5.9 / 3.9 - 5.3 cm LV Systolic Diameter PLAX 3.8 cm IVS Diastolic Thickness 1.1 cm 0.6 - 1.0 / 0.6 - 0.9 cm LVPW Diastolic Thickness 1.1 cm 0.6 - 1.0 / 0.6 - 0.9 cm LV Relative Wall Thickness 0.5 RV Internal Dim ED PLAX 2.0 cm LVOT Diameter 2.1 cm LA Systolic Diameter LX 4.2 cm 3.0 - 4.0 / 2.7 - 3.8 cm M-MODE Aortic Root Diameter MM 3.3 cm LA Systolic Diameter MM 3.3 cm LA Ao Ratio MM 1.0 AV Cusp Separation MM 0.9 cm DOPPLER AV Peak Velocity 206.5 cm/s AV Peak Gradient 17.1 mmHg AV Mean Velocity 161.1 cm/s AV Mean Gradient 11.0 mmHg AV Velocity Time Integral 45.4 cm AI Peak Velocity 338.1 cm/s AI Peak Gradient 45.7 mmHg AI Pressure Half Time 514.9 ms LVOT Peak Velocity 103.0 cm/s LVOT Peak Gradient 4.2 mmHg LVOT Velocity Time Integral 21.8 cm LVOT Stroke Volume 72.5 cm??? LVOT Stroke Volume Index 34.2 ml/m??? LVOT Cardiac Index 2557.9 cm???/min???m??? AV Area Cont Eq vti 1.6 cm??? AV Area Cont Eq pk 1.7 cm??? MV Peak Velocity 115.6 cm/s MV Peak Gradient 5.3 mmHg MV Mean Velocity 72.5 cm/s MV Mean Gradient 2.4 mmHg MV Velocity Time Integral 36.1 cm Mitral E Point Velocity 105.6 cm/s Mitral A Point Velocity 113.4 cm/s Mitral E to A Ratio 0.9 MV Deceleration Time 241.1 ms MV E' Velocity 5.9 cm/s Mitral E to MV E' Ratio 17.9 TR Peak Velocity 217.5 cm/s TR Peak Gradient 18.9 mmHg FINDINGS Left Ventricle Left ventricular ejection fraction is estimated at 35%. Mildly increased septal wall thickness. Manley hypokinetic. Hypokinetic septum. Left ventricular cavity size normal. Right Ventricle Normal right ventricular size and function. Right ventricular systolic pressure within normal limits. Right Atrium Normal right atrial size. Left Atrium Mildly increased left atrial diameter. Mitral Valve Structurally normal mitral valve. Mitral valve thickened. Trace to mild mitral regurgitation. Aortic Valve Mild aortic stenosis with a peak gradient of 17mmHg and a mean gradient of 11 mmHg. Mild aortic regurgitation. Tricuspid Valve Structurally normal tricuspid valve. Mild tricuspid regurgitation. No tricuspid stenosis. Pulmonic Valve Structurally normal pulmonic valve. Trace pulmonic regurgitation. No pulmonic stenosis. Pericardium No pericardial or pleural effusion. Aorta Normal size aortic root and proximal ascending aorta. CONCLUSIONS Left ventricular ejection fraction 35% with apical, septal and inferior hypokinesis Trace to mild mitral regurgitation Mild aortic stenosis Mild aortic regurgitation No pericardial effusion Previewed by: Dr. Dick Lobato DO (Electronically Signed) Final Date: 19 January 2025 13:46
[2025-01-19] MEDS: FOLIC ACID 1 MG TAB PO SCH (17:08)
[2025-01-19] MEDS: HEPARIN SODIUM,PORCINE 5,000 UNIT/ML 1 ML VIAL SQ SCH (17:08)
[2025-01-19] MEDS: CYANOCOBALAMIN 1,000 MCG/ML 1 ML VIAL IM ONE (17:08)
--- NOTE | 2025-01-20 06:46 | P.PN ---
Subjective Progress Note Date: 01/19/25 Patient was seen for follow-up. Patient is sitting comfortably in the recliner. Denies any episodes of vertigo. Offers no complaints. Objective - Vital Signs Vital signs: Vital Signs Temp 97.7 F 01/19/25 12:00 Pulse 82 01/19/25 12:00 Resp 18 01/19/25 12:00 BP 124/79 01/19/25 12:00 Pulse Ox 98 01/19/25 12:00 FiO2 Intake & Output 01/18/25 01/19/25 01/19/25 18:59 06:59 18:59 Intake Total 369.510 160 Output Total 200 150 Balance 369.510 -40 -150 Intake: IV 10 160 Heparin Sod,Pork in 0.45% 80 NaCl 25,000 unit In 0.45 % NaCl 1 250ml.bag @ 10. 11 UNITS/KG/HR 9.997 mls/ hr IV .Q24H FERNANDA Rx#: [id number] Invasive Line 1 10 Sodium Chloride 0.9% 1, 80 000 ml In Empty Bag 1 bag @ 1 ML/KG/HR 98.883 mls/ hr IV .Q10H7M FERNANDA Rx#: [id number] Intake, IV Titration 239.510 Amount Heparin Sod,Pork in 0.45% 239.510 NaCl 25,000 unit In 0.45 % NaCl 1 250ml.bag @ 10. 11 UNITS/KG/HR 9.997 mls/ hr IV .Q24H FERNANDA Rx#: [id number] Oral 120 Output: Urine 200 150 Other: Voiding Method Urinal Urinal Urinal Diaper Diaper Diaper # Voids 1 1 - Exam Unchanged. - Labs CBC & Chem 7: 01/18/25 06:07 01/18/25 06:07 Labs: Abnormal Lab Results - Last 24 Hours (Table) 01/18/25 01/19/25 Range/Units 15:21 06:47 APTT 46.0 H 44.5 H (22.0-30.0) sec Microbiology - Last 24 Hours (Table) 01/17/25 11:40 Nasal Screen MRSA/MSSA - Final Nasal Swab Assessment and Plan Assessment: * Transient vertigo, lasted for 10 minutes. Patient also had chest tightness along with the dizziness/vertigo. Suspect cardiac etiology. TIA also in the differential. * Acute Non-STEMI. Cardiac catheterization revealed triple-vessel disease * History of CAD * Hypertension * Hyperlipidemia * Obesity * Developmental delay Plan: * Carotid Doppler revealed no evidence for hemodynamically significant stenosis. Antegrade flow in both vertebral arteries. * 2D echo revealed LVEF 35% with apical, septal and inferior wall hypokinesis. Mildly increased left atrial diameter. Normal right atrial size. Mild AAS and AR. * B12 396, folate 4.50, hemoglobin A1c 5.4. Patient to be started on B12 and folate replacement. * Agree with starting aspirin 81 mg, also on Lipitor 40 mg. * Cardiology has stopped heparin, started on heparin subcu. 5000 unit every 8 hours * Patient had a CT head recently on 07/10/2024, which showed no acute int racranial process, nonspecific white matter changes from small vessel ischemic disease. No need to repeat CT head, as examination is nonfocal and symptoms likely cardiac. * Neurologically, no other workup indicated. Further management as per cardiology.
[2025-01-20 08:09] LABS: HGB 12.2 g/dL (13.0-17.0); MCH 31.3 pg (27.0-32.0); MCHC 33.9 g/dL (32.0-37.0); MCV 92.3 fL (80.0-97.0); Platelet Count 235 10*3/uL (140-440); RDW 14.6 % (11.5-14.5); WBC 7.48 10*3/uL (4.50-10.00)
[2025-01-20 08:29] LABS: African American GFR (CKD) >90 (>60 ml/min/1.73 sqM); Anion Gap 13 mmol/L; Blood Urea Nitrogen 14 mg/dL (9-20); Calcium 8.9 mg/dL (8.4-10.2); Carbon Dioxide 27 mmol/L (22-30); Chloride 102 mmol/L (98-107); Glucose 102 mg/dL (74-99); Non-African American GFR(CKD) 88 (>60 ml/min/1.73 sqM); Potassium 4.1 mmol/L (3.5-5.1); Sodium 142 mmol/L (137-145)
[2025-01-20] MEDS: CYANOCOBALAMIN 1,000 MCG/ML 1 ML VIAL IM SCH (08:56)
--- NOTE | 2025-01-20 10:52 | P.PN ---
Subjective Progress Note Date: 01/20/25 Principal diagnosis: Multivessel coronary artery disease, non-ST elevated myocardial infarction this admission. History of coronary artery disease with myocardial infarction and p revious stent placement to his circumflex coronary artery and left anterior descending coronary artery in August 2017, hypertension, hyperlipidemia, obesity, lifetime non-smoker The patient was seen and examined this morning with Dr. Bauer sitting up in bed on the cardiac stepdown unit in no acute distress. He denies any chest pain or shortness of breath currently. He is slow to respond but seems to be at his baseline. 5 m walk completed, patient utilized a walker although did not appear to be leaning on it. He walks slowly but was able to get up out of bed on his own with standby assist. Timing #1 8.89 seconds, #2 10.17 seconds, #3 9.34 seconds. Was able to ambulate on room air with oxygen saturation 92 to 93%. STS risk calculated, patient low to moderate risk for surgery. More recommendations to follow. Objective - Vital Signs Vital signs: Vital Signs Temp 97.7 F 01/20/25 04:00 Pulse 103 H 01/20/25 08:55 Resp 16 01/20/25 08:55 BP 118/72 01/20/25 08:55 Pulse Ox 97 01/20/25 08:55 FiO2 Intake & Output 01/19/25 01/20/25 01/20/25 18:59 06:59 18:59 Intake Total 240 Output Total 150 400 Balance -150 -400 240 Intake: Oral 240 Output: Urine 150 400 Other: Voiding Method Urinal Urinal Urinal Diaper Diaper Diaper - Exam CONSTITUTIONAL: Appears comfortable, cooperative, no acute distress RESPIRATORY: Lungs sounds diminished bilaterally. Respirations even, nonlabored. Currently on room air saturation 94%. Able to achieve 1500 mL on incentive spirometry CARDIOVASCULAR: S1, S2 present. Regular rate and rhythm, sinus rhythm on telemetry. Palpable peripheral pulses bilaterally. Bilateral lower extremity edema present. No calf pain or tenderness noted GASTROINTESTINAL: Abdomen soft, nontender, nondistended. Active bowel sounds present 4 quadrants. Tolerating diet GENITOURINARY: Continues to void although incontinent at times INTEGUMENTARY: Skin is warm and dry NEUROLOGIC: Cranial nerves II through XII intact MUSKULOSKELETAL: Able to move all extremities, strength equal bilaterally PSYCHIATRIC: Alert and oriented to person, place, time, and situation - Allied health notes Allied health notes reviewed: nursing - Labs CBC & Chem 7: 01/20/25 07:02 01/20/25 07:02 Labs: Abnormal Lab Results - Last 24 Hours (Table) 01/20/25 01/20/25 Range/Units 07:02 07:02 RBC 3.90 L (4.40-5.60) 10*6/uL Hgb 12.2 L (13.0-17.0) g/dL Hct 36.0 L (39.6-50.0) % Glucose 102 H (74-99) mg/dL Assessment and Plan Assessment: Multivessel coronary artery disease, non-ST elevated myocardial infarction this admission History of coronary artery disease with myocardial infarction and previous stent placement to Cx and LAD in August 2017 Hypertension Hyperlipidemia, cholesterol 174, LDL 100.8, triglycerides 139 Obesity Lifetime non-smoker Developmental delay Plan: Continue to maximize medical therapy with aspirin, statin, beta-trixie Increase activity as tolerated Will plan for surgical myocardial revascularization, timing to be determined Continued medical management per internal medicine, cardiology Will continue to follow along
--- NOTE | 2025-01-20 13:07 | P.PN ---
Subjective HISTORY OF PRESENT ILLNESS: This is a 74-year-old male with a past medical history significant for coronary artery disease with previous stenting of the circumflex of the LAD, hypertension, and hyperlipidemia. Patient used to follow in the office with Dr. Guillen but has not been seen since October 2019. We have been asked to see the patient in consultation for chest pain. Patient examined at the bedside in the emergency room. Patient states that he was at [facility] yesterday when he began to have chest discomfort. He states the pain was in the middle of the chest. He denied any radiation of the pain. He also reported having some dizziness. The patient was found to have elevated troponins and was started on IV heparin. At the time of examination he denies any chest pain or pressure. Bedside telemetry reveals sinus mechanism. DIAGNOSTICS: - EKG reveals sinus tachycardia with no signs of acute ischemia. - Chest xray negative for acute process - Laboratory data: WBC 6.7. Hemoglobin 13.4. Platelet count 217. D-dimer 0.26. Sodium 137. Potassium 4.1. BUN 11. Creatinine 0.62. Troponin 0.090. 3.400. proBNP 1550. TSH 3.740. - Current home cardiac medications include none. - Most recent echocardiogram obtained in July 2017 revealing ejection fraction 60 to 65% with mild TR - Cardiac catheterization history: July 2017 with stenting of the proximal left circumflex. - Repeat cardiac catheterization performed in August 2017 with stenting of the LAD 01/18/2025 Patient is status post cardiac catheterization yesterday with Dr. Mccabe revealing RCA stenosis at its worst 70 to 80%. There is mid RCA lesion of 60% and divides into PDA and PLV. Ostium of the PLV has 70% stenosis and PDA has 50 to 60% stenosis. Left main artery appears calcified. There is distal left main plaque. Circumflex coronary artery reveals 95% ostial stenosis. LAD has 80 to 90% stenosis proximally in the ostial portion. CT surgery was consulted for evaluation. Patient examined this morning at the bedside. Patient currently denies chest pain or pressure. He denies shortness of breath. Vital signs are stable. Telemetry reveals sinus mechanism. Patient's brother is at the bedside. Patient's brother states that patient is at his baseline. He states that the patient is " somewhat handicapped" and " takes a long time to process what people are saying". He states that the patient has lived on his own independently for many years and takes care of himself and makes all his own medical decisions. 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 He states he is not able to drive because his reaction times are too slow and cannot make sudden decisions. 01/19/2025 Patient examined this morning at bedside. Patient currently denies chest pain or pressure. He denies shortness of breath. Denies dizziness or lightheadedness. Vital signs are stable. He remains on IV heparin. 01/20/2025 Patient examined this morning at the bedside. Patient currently denies chest pain or pressure. He denies shortness of breath. Vital signs are stable. Echocardiogram completed revealing ejection fraction 35% with apical septal and inferior hypokinesis, trace to mild MR, mild aortic stenosis, mild aortic regurgitation. PHYSICAL EXAM: VITAL SIGNS: Reviewed. GENERAL: Well-developed in no acute distress. HEENT: Head is normocephalic. Pupils are equal, round. Sclerae anicteric. Mucous membranes of the mouth are moist. Neck supple. No JVD or thyromegaly LUNGS: Respirations even and unlabored. Lungs essentially clear to auscultation bilaterally. HEART: Regular rate and rhythm. S1 and S2 heard. ABDOMEN: Soft. Nondistended. Nontender. EXTREMITIES: Normal range of motion. No clubbing or cyanosis. Peripheral pulses intact. No lower extremity edema NEUROLOGIC: Awake and alert. Oriented x 3. ASSESSMENT: Non-STEMI, status post cardiac catheterization revealing triple-vessel disease Coronary artery disease with previous stenting of circumflex and LAD, 2017 Hypertension Hyperlipidemia Obesity: BMI 33.1 Developmental delay, at baseline per patients brother PLAN: Continue aspirin, atorvastatin, and metoprolol CT surgery following patient. Patient tentatively scheduled for CABG on 01/24/[address] Arana Further recommendations pending patient course Nurse practitioner note has been reviewed by physician. Signing provider agrees with the documented findings, assessment, and plan of care documented by BLIND LACER as a scribe. Objective - Vital Signs Vital signs: Vital Signs Temp 97.3 F L 01/20/25 11:33 Pulse 91 01/20/25 11:33 Resp 16 01/20/25 11:33 BP 98/59 01/20/25 11:33 Pulse Ox 95 05/01/25 11:33 FiO2 Intake & Output 01/19/25 01/20/25 01/20/25 18:59 06:59 18:59 Intake Total 240 Output Total 150 400 Balance -150 -400 240 Intake: Oral 240 Output: Urine 150 400 Other: Voiding Method Urinal Urinal Urinal Diaper Diaper Diaper - Labs CBC & Chem 7: 01/20/25 07:02 01/20/25 07:02 Labs: Abnormal Lab Results - Last 24 Hours (Table) 01/20/25 01/20/25 Range/Units 07:02 07:02 RBC 3.90 L (4.40-5.60) 10*6/uL Hgb 12.2 L (13.0-17.0) g/dL Hct 36.0 L (39.6-50.0) % Glucose 102 H (74-99) mg/dL
--- NOTE | 2025-01-20 22:16 | P.PN ---
Subjective Progress Note Date: 01/20/25 01/17/2025 this is 74-year-old gentleman, follows with [facility] with past medical history significant for CAD, DC with stents of the circumflex and LAD, morbid obesity, hypertension, hyperlipidemia and multiple other medical issues brought into the ER via EMS from [facility] yesterday secondary to complaints of chest pain. Patient reports during [facility] he developed midsternal chest pain/tingling, nonradiating accompanied by increased shortness of breath and lightheadedness. Denies nausea, vomiting or diarrhea.denies abdominal pain.Patient responds slowly but appropriate;baseline as per PCP.Does not drive, uses the [facility] [employer] for transportation. Patient was initiated on IV heparin drip related to elevated troponins. EKG reported sinus tachycardia. Troponins 0.090, 3.400. D-dimer WNL, 0.26. Afebrile, normal WBC, hemoglobin 14.6, platelets 255, INR 1. 137, potassium 4 1, bicarb 24, creatinine 0.62, glucose 103, magnesium 1.6. proBNP 1550, TSH 3.740. Viral studies negative. Chest x-ray reported no acute cardiopulmonary disease/process. Currently denies chest pain, palpitations or shortness of breath.Maintaining O2 sats in the high 90s to 100% on room air. 01/18/2025 completed cardiac catheterization yesterday reported severe triple- vessel disease; proximal RCA 70 to 80% stenosis, mid RCA 60% stenosis,Ostium of the PLV 70% and PDA has 50 to 60% stenosis. Circumflex coronary artery 95% ostial stenosis. LAD 80 to 90% stenosis proximally in the ostial portion. LV fu nction/echo pending. Evaluated by cardiothoracic surgery yesterday, felt to be high risk candidate. Brother Arvind at bedside, disclosed that patient had run out of medications, timeframe unknown. Currently denies chest pain, palpitations or shortness of breath. Telemetry sinus rhythm. 01/19/2025 anticoagulated on IV heparin drip. Maintained on beta-trixie, statin and aspirin. Echo results pending. Telemetry sinus rhythm .denies chest pain, palpitations or shortness of breath. Denies lightheadedness dizziness or focal deficits. Incentive spirometer up to 1999. 01/20/2025 Patient evaluated today on the cardiac unit. Sitting up in the chair. No acute complaints. Heparin gtt currently off. Echocardiogram reveals EF 35% with apical, septal and inferior hypokinesis. Trace to mild MR, mild aortic stenosis, mild AR. Patient is being considered for open heart surgery. Review of Systems Constitutional: Denied any fatigue denied any fever. Cardio vascular: denied any chest pain, palpitations Gastrointestinal: denied any nausea, vomiting, diarrhea Pulmonary: Denied any shortness of breath cough Neurologic denied any new focal deficits All inpatient medications were reviewed and appropriate changes in these medications as dictated in the interval history and assessment and plan. PHYSICAL EXAMINATION: GENERAL: The patient is alert and oriented x2-3, not in any acute distress. Well developed, well nourished. HEENT: Pupils are round and equally reacting to light. EOMI. No scleral icterus. No conjunctival pallor. Normocephalic, atraumatic. No pharyngeal erythema. No th yromegaly. CARDIOVASCULAR: S1 and S2 present. No murmurs, rubs, or gallops. PULMONARY: Chest is clear to auscultation, no wheezing or crackles. ABDOMEN: Soft, nontender, nondistended, normoactive bowel sounds. No palpable organomegaly. MUSCULOSKELETAL: No joint swelling or deformity. EXTREMITIES: No cyanosis, clubbing, or pedal edema. NEUROLOGICAL: No focal neurological deficits. SKIN: No rashes. Assessment NSTEMI, status post cardiac catheterization reporting triple-vessel disease CAD with history of DC 2017, stenting of circumflex and LAD, current ran out of his medications-states unclear on timeframe. Last refill RX [facility] at [facility] as October 2019. Developmental delay, at baseline per PCP and patient's brother Arvind. Follows with [facility]. Hypertension Hyperlipidemia Morbid obesity, BMI 33 Plan Continue current cardiac medications Encourage IS Pending scheduling of open herat surgery The impression and plan of care has been dictated by Kandy Che Nurse Practitioner as directed. Dr. Jesus Alberto MD I have performed a history and physical examination and medical decision making of this patient, discussed the same with the dictator, and agree with the dictators assessment and plan as written, documented as a scribe. Based on total visit time, I have performed more than 50% of this visit. Objective - Vital Signs Vital signs: Vital Signs Temp 98.2 F 01/20/25 15:13 Pulse 81 01/20/25 15:13 Resp 16 01/20/25 15:13 BP 112/56 01/20/25 15:13 Pulse Ox 95 01/20/25 11:33 FiO2 Intake & Output 01/20/25 01/20/25 01/21/25 06:59 18:59 06:59 Intake Total 960 Output Total 400 325 Balance -400 635 Intake: Oral 960 Output: Urine 400 325 Other: Voiding Method Urinal Urinal Diaper Diaper - Labs CBC & Chem 7: 01/20/25 07:02 01/20/25 07:02 Labs: Abnormal Lab Results - Last 24 Hours (Table) 01/20/25 01/20/25 Range/Units 07:02 07:02 RBC 3.90 L (4.40-5.60) 10*6/uL Hgb 12.2 L (13.0-17.0) g/dL Hct 36.0 L (39.6-50.0) % Glucose 102 H (74-99) mg/dL Assessment and Plan Time with Patient: Less than 30
--- NOTE | 2025-01-21 11:02 | P.PN ---
Subjective HISTORY OF PRESENT ILLNESS: This is a 74-year-old male with a past medical history significant for coronary artery disease with previous stenting of the circumflex of the LAD, hypertension, and hyperlipidemia. Patient used to follow in the office with Dr. Guillen but has not been seen since October 2019. We have been asked to see the patient in consultation for chest pain. Patient examined at the bedside in the emergency room. Patient states that he was at [facility] yesterday when he began to have chest discomfort. He states the pain was in the middle of the chest. He denied any radiation of the pain. He also reported having some dizziness. The patient was found to have elevated troponins and was started on IV heparin. At the time of examination he denies any chest pain or pressure. Bedside telemetry reveals sinus mechanism. DIAGNOSTICS: - EKG reveals sinus tachycardia with no signs of acute ischemia. - Chest xray negative for acute process - Laboratory data: WBC 6.7. Hemoglobin 13.4. Platelet count 217. D-dimer 0.26. Sodium 137. Potassium 4.1. BUN 11. Creatinine 0.62. Troponin 0.090. 3.400. proBNP 1550. TSH 3.740. - Current home cardiac medications include none. - Most recent echocardiogram obtained in July 2017 revealing ejection fraction 60 to 65% with mild TR - Cardiac catheterization history: July 2017 with stenting of the proximal left circumflex. - Repeat cardiac catheterization performed in August 2017 with stenting of the LAD 01/18/2025 Patient is status post cardiac catheterization yesterday with Dr. Mccabe revealing RCA stenosis at its worst 70 to 80%. There is mid RCA lesion of 60% and divides into PDA and PLV. Ostium of the PLV has 70% stenosis and PDA has 50 to 60% stenosis. Left main artery appears calcified. There is distal left main plaque. Circumflex coronary artery reveals 95% ostial stenosis. LAD has 80 to 90% stenosis proximally in the ostial portion. CT surgery was consulted for evaluation. Patient examined this morning at the bedside. Patient currently denies chest pain or pressure. He denies shortness of breath. Vital signs are stable. Telemetry reveals sinus mechanism. Patient's brother is at the bedside. Patient's brother states that patient is at his baseline. He states that the patient is " somewhat handicapped" and " takes a long time to process what people are saying". He states that the patient has lived on his own independently for many years and takes care of himself and makes all his own medical decisions. 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 He states he is not able to drive because his reaction times are too slow and cannot make sudden decisions. 01/19/2025 Patient examined this morning at bedside. Patient currently denies chest pain or pressure. He denies shortness of breath. Denies dizziness or lightheadedness. Vital signs are stable. He remains on IV heparin. 01/20/2025 Patient examined this morning at the bedside. Patient currently denies chest pain or pressure. He denies shortness of breath. Vital signs are stable. Echocardiogram completed revealing ejection fraction 35% with apical septal and inferior hypokinesis, trace to mild MR, mild aortic stenosis, mild aortic regurgitation. 01/21/2025 Patient examined this morning at bedside. Patient currently denies chest pain or pressure. He denies shortness of breath. He reports nausea this morning with a small episode of emesis. Vital signs are stable. Telemetry Veals sinus mechanism. PHYSICAL EXAM: VITAL SIGNS: Reviewed. GENERAL: Well-developed in no acute distress. HEENT: Head is normocephalic. Pupils are equal, round. Sclerae anicteric. Mucous membranes of the mouth are moist. Neck supple. No JVD or thyromegaly LUNGS: Respirations even and unlabored. Lungs essentially clear to auscultation bilaterally. HEART: Regular rate and rhythm. S1 and S2 heard. ABDOMEN: Soft. Nondistended. Nontender. EXTREMITIES: Normal range of motion. No clubbing or cyanosis. Peripheral pulses intact. No lower extremity edema NEUROLOGIC: Awake and alert. Oriented x 3. ASSESSMENT: Non-STEMI, status post cardiac catheterization revealing triple-vessel disease Coronary artery disease with previous stenting of circumflex and LAD, 2017 Hypertension Hyperlipidemia Obesity: BMI 33.1 Developmental delay, at baseline per patients brother PLAN: Continue aspirin, atorvastatin, Imdur and metoprolol CT surgery following patient. Patient tentatively scheduled for CABG on 01/24/[address] Arana Further recommendations pending patient course Nurse practitioner note has been reviewed by physician. Signing provider agrees with the documented findings, assessment, and plan of care documented by RUG RENOVATOR as a scribe. Objective - Vital Signs Vital signs: Vital Signs Temp 98.1 F 01/21/25 08:00 Pulse 93 01/21/25 08:00 Resp 20 01/21/25 08:00 BP 104/68 01/21/25 08:00 Pulse Ox 95 01/21/25 08:00 FiO2 Intake & Output 01/20/25 01/21/25 01/21/25 18:59 06:59 18:59 Intake Total 960 200 120 Output Total 325 640 Balance 635 -440 120 Intake: Oral 960 200 120 Output: Urine 325 640 Other: Voiding Method Urinal Urinal Diaper Diaper # Voids 1 - Labs CBC & Chem 7: 01/20/25 07:02 01/20/25 07:02
--- NOTE | 2025-01-21 11:30 | P.PN ---
Subjective Progress Note Date: 01/21/25 Principal diagnosis: Multivessel coronary artery disease, non-ST elevated myocardial infarction this admission. Medical history significant for coronary artery disease with myocar dial infarction and previous stent placement to his circumflex coronary artery and left anterior descending coronary artery in August 2017, hypertension, hyperlipidemia, obesity, developmentally delayed and is a lifetime non-smoker. The patient was seen and examined in follow-up today January 21, 2025 at his bedside on the third floor cardiac stepdown unit. The patient is currently laying in bed, is awake, alert, oriented x 3 and is in no acute apparent distress. The patient denies any complaints of shortness of breath at this time, although he reports he did have some chest pressure throughout the night. He denies any complaints of chest pain or chest pressure at this time. Preoperative teaching has been reinforced with the patient, and his questions have been answered. Oxygen saturations are 97% on room air and he is achieving 2000 mL on his incentive spirometry with encouragement. Remote telemetry showed normal sinus rhythm heart rate 81. He is scheduled for myocardial revascularization surgery on Friday, January 24, 2025 to be completed by Dr. Abhay Arana, with left internal mammary artery, endoscopic greater saphenous vein harvest, endoscopic left radial artery harvest, exclusion left atrial appendage and intraoperative transesophageal echocardiogram. Transthoracic 2D echocardiogram has been completed which showed a left ventricular ejection fraction estimated 35%, mildly increased septal wall thickness, trace to mild mitral valve regurgitation, mild aortic valve stenosis with a peak gradient of 17 mmHg and a mean gradient 11 mmHg, mild aortic valve regurgitation, and no pericardial or pleural effusions. Objective - Vital Signs Vital signs: Vital Signs Temp 98.1 F 01/21/25 08:00 Pulse 93 01/21/25 08:00 Resp 20 01/21/25 08:00 BP 104/68 01/21/25 08:00 Pulse Ox 95 01/21/25 08:00 FiO2 Intake & Output 01/20/25 01/21/25 01/21/25 18:59 06:59 18:59 Intake Total 960 200 120 Output Total 325 640 Balance 635 -440 120 Intake: Oral 960 200 120 Output: Urine 325 640 Other: Voiding Method Urinal Urinal Diaper Diaper # Voids 1 - Exam CONSTITUTIONAL: Appears comfortable, cooperative, no acute distress RESPIRATORY: Lungs sounds essentially clear throughout. No wheezes, rhonchi or crackles. Respirations symmetrical, and nonlabored. Currently on room air saturation 97%. Able to achieve 2000 mL on incentive spirometry. CARDIOVASCULAR: S1, S2 present. Regular rate and rhythm, normal sinus rhythm on remote telemetry, heart rate 81 bpm. Palpable peripheral pulses bilaterally. Bilateral lower extremity edema present. No calf pain or tenderness noted. GASTROINTESTINAL: Abdomen soft, nontender, and nondistended. Active bowel sounds present 4 quadrants. Tolerating diet. No guarding or rigidity. GENITOURINARY: Continues to void although incontinent at times. INTEGUMENTARY: Skin is warm and dry. No clubbing or cyanosis present. NEUROLOGIC: Cranial nerves II through XII intact. MUSKULOSKELETAL: Able to move all extremities, strength equal bilaterally. Generalized weakness. PSYCHIATRIC: Alert and oriented to person, place, time, and situation. - Allied health notes Allied health notes reviewed: nursing - Labs CBC & Chem 7: 01/20/25 07:02 01/20/25 07:02 Assessment and Plan Assessment: Multivessel coronary artery disease, non-ST elevated myocardial infarction this admission History of coronary artery disease with myocardial infarction and previous stent placement to circumflex and left anterior descending coronary artery in August 2017 Hypertension Hyperlipidemia, cholesterol 174, LDL 100.8, triglycerides 139 Obesity with a BMI of 33.1 kg/m Lifetime non-smoker, preoperative FEV1 1.70, 61% of predicted value Developmental delay Plan: Patient is scheduled for coronary artery bypass surgery with left internal mammary artery, endoscopic left radial and endoscopic vein harvest, ligation of the left atrial appendage on Friday01/24/[address] Arana. Preoperative teaching has been reinforced with the patient, questions answered to the best my ability. Encouraged use of incentive spirometry 10 times every hour while awake. Continue to maximize medical management with aspirin, statin and beta-trixie. Increase activity as tolerated. Medical management and other comorbidities per internal medicine, and cardiology recommendations. More recommendations to follow based on patient's clinical course. Time with Patient: Greater than 30
--- NOTE | 2025-01-21 13:47 | P.PN ---
Subjective Progress Note Date: 01/21/25 01/17/2025 this is 74-year-old gentleman, follows with [facility] with past medical history significant for CAD, CT with stents of the circumflex and LAD, morbid obesity, hypertension, hyperlipidemia and multiple other medical issues brought into the ER via EMS from [facility] yesterday secondary to complaints of chest pain. Patient reports during [facility] he developed midsternal chest pain/tingling, nonradiating accompanied by increased shortness of breath and lightheadedness. Denies nausea, vomiting or diarrhea.denies abdominal pain.Patient responds slowly but appropriate;baseline as per PCP.Does not drive, uses the [facility] [employer] for transportation. Patient was initiated on IV heparin drip related to elevated troponins. EKG reported sinus tachycardia. Troponins 0.090, 3.400. D-dimer WNL, 0.26. Afebrile, normal WBC, hemoglobin 14.6, platelets 255, INR 1. 137, potassium 4 1, bicarb 24, creatinine 0.62, glucose 103, magnesium 1.6. proBNP 1550, TSH 3.740. Viral studies negative. Chest x-ray reported no acute cardiopulmonary disease/process. Currently denies chest pain, palpitations or shortness of breath.Maintaining O2 sats in the high 90s to 100% on room air. 01/18/2025 completed cardiac catheterization yesterday reported severe triple- vessel disease; proximal RCA 70 to 80% stenosis, mid RCA 60% stenosis,Ostium of the PLV 70% and PDA has 50 to 60% stenosis. Circumflex coronary artery 95% ostial stenosis. LAD 80 to 90% stenosis proximally in the ostial portion. LV fu nction/echo pending. Evaluated by cardiothoracic surgery yesterday, felt to be high risk candidate. Brother Arvind at bedside, disclosed that patient had run out of medications, timeframe unknown. Currently denies chest pain, palpitations or shortness of breath. Telemetry sinus rhythm. 01/19/2025 anticoagulated on IV heparin drip. Maintained on beta-trixie, statin and aspirin. Echo results pending. Telemetry sinus rhythm .denies chest pain, palpitations or shortness of breath. Denies lightheadedness dizziness or focal deficits. Incentive spirometer up to 1999. 01/20/2025 Patient evaluated today on the cardiac unit. Sitting up in the chair. No acute complaints. Heparin gtt currently off. Echocardiogram reveals EF 35% with apical, septal and inferior hypokinesis. Trace to mild MR, mild aortic stenosis, mild AR. Patient is being considered for open heart surgery. 01/21/2025 Patient is evaluated today in follow up. He is sitting up in the chair. Having no acute complaints. Remains off IV heparin at this time. He will be going for open heart surgery on Friday. Review of Systems Constitutional: Denied any fatigue denied any fever. Cardio vascular: denied any chest pain, palpitations Gastrointestinal: denied any nausea, vomiting, diarrhea Pulmonary: Denied any shortness of breath cough Neurologic denied any new focal deficits All inpatient medications were reviewed and appropriate changes in these medications as dictated in the interval history and assessment and plan. PHYSICAL EXAMINATION: GENERAL: The patient is alert and oriented x2-3, not in any acute distress. Well developed, well nourished. HEENT: Pupils are round and equally reacting to light. EOMI. No scleral icterus. No conjunctival pallor. Normocephalic, atraumatic. No pharyngeal erythema. No t hyromegaly. CARDIOVASCULAR: S1 and S2 present. No murmurs, rubs, or gallops. PULMONARY: Chest is clear to auscultation, no wheezing or crackles. ABDOMEN: Soft, nontender, nondistended, normoactive bowel sounds. No palpable organomegaly. MUSCULOSKELETAL: No joint swelling or deformity. EXTREMITIES: No cyanosis, clubbing, or pedal edema. NEUROLOGICAL: No focal neurological deficits. SKIN: No rashes. Assessment NSTEMI, status post cardiac catheterization reporting triple-vessel disease CAD with history of CT 2017, stenting of circumflex and LAD, current ran out of his medications-states unclear on timeframe. Last refill RX recorded at [facility] as October 2019. Developmental delay, at baseline per PCP and patient's brother Arvind. Follows with [facility]. Hypertension Hyperlipidemia Morbid obesity, BMI 33 Plan Continue current cardiac medications Encourage IS Pending scheduling of open herat surgery The impression and plan of care has been dictated by Kandy Che Nurse Practitioner as directed. Dr. Jesus Alberto MD I have performed a history and physical examination and medical decision making of this patient, discussed the same with the dictator, and agree with the dictators assessment and plan as written, documented as a scribe. Based on total visit time, I have performed more than 50% of this visit. Objective - Vital Signs Vital signs: Vital Signs Temp 97.5 F L 01/21/25 11:32 Pulse 95 01/21/25 11:32 Resp 20 01/21/25 11:32 BP 102/59 01/21/25 11:32 Pulse Ox 96 01/21/25 11:32 FiO2 Intake & Output 01/20/25 01/21/25 01/21/25 18:59 06:59 18:59 Intake Total 960 200 360 Output Total 325 640 250 Balance 635 -440 110 Intake: Oral 960 200 360 Output: Urine 325 640 250 Other: Voiding Method Urinal Urinal Diaper Diaper # Voids 1 - Labs CBC & Chem 7: 01/20/25 07:02 01/20/25 07:02 Assessment and Plan Time with Patient: Less than 30
--- NOTE | 2025-01-21 14:58 | P.CNPUL ---
History of Present Illness Consult date: 01/21/25 Requesting physician: Tony Vaughan Reason for consult: other (Preoperative pulmonary clearance) Chief complaint: Chest pain History of present illness: This is a 74-year-old white male known history of coronary artery disease, previous stenting of circumflex and LAD, known history of hypertension, dyslipidemia, patient presented to the hospital on 01/16 with chest pain suggestive of acute coronary syndrome. Patient was seen by cardiology and he was felt to have non-ST elevation myocardial infarction started patient initially on heparin aspirin atorvastatin and metoprolol. Patient underwent cardiac catheterization, he was found to have multivessel coronary artery disease, seen by cardiothoracic surgery on consultation, and the plan is to proceed with myocardial revascularization. Workup so far included CT of the chest, it showed no acute thoracic process, it also showed nonspecific pulmonary nodules measuring up to 4 mm, and he was found to have cholelithiasis. Patient states that he is quite active, patient walks on a daily basis, and he never smoked. Denies any cough wheezing shortness of breath. Denies any fever or chills or hemoptysis. Going back to his cardiac catheterization, it showed three-vessel coronary artery disease with 80 to 90% stenosis of the LAD, 95% stenosis to the ostial circumflex coronary artery 70 to 80% stenosis to the ostium of the PLV coronary artery and 50 to 60% to the PDA coronary artery. Review of Systems REVIEW OF SYSTEMS: CONSTITUTIONAL: Negative. EYES: Negative. ENT: Negative. CARDIAC: As noted in HPI PULMONARY: As above. GI: Negative. GENITOURINARY: Negative. MUSCULOSKELETAL: Negative. SKIN: Negative. NEUROPSYCH: Negative. ENDOCRINE: Negative. HEMATOLOGIC: Negative. Past Medical History Past Medical History: Myocardial Infarction ([place]) Additional Past Medical History / Comment(s): 08/13/17 STEMI Last Myocardial Infarction Date:: 08/13/17 History of Any Multi-Drug Resistant Organisms: None Reported Past Surgical History: Appendectomy, Heart Catheterization With Stent Additional Past Surgical History / Comment(s): 08-13-17 HEART CATH W/ STENT TO LT CIRC. Past Anesthesia/Blood Transfusion Reactions: No Reported Reaction Date of Last Stent Placement:: 08/13/17 Past Psychological History: No Psychological Hx Reported Smoking Status: Never smoker Past Alcohol Use History: None Reported Past Drug Use History: None Reported - Past Family History Father History Unknown: Yes Family Medical History: Myocardial Infarction ([place]) Mother History Unknown: Yes Additional Family Medical History / Comment(s): " Ruptured liver from a motor ve hicle accident" Medications and Allergies Home Medications Medication Instructions Recorded Confirmed Type No Known Home Medications 01/16/25 01/16/25 History Allergies Allergy/AdvReac Type Severity Reaction Status Date / Time No Known Allergies Allergy Verified 01/16/25 12:15 Physical Exam Vitals: Vital Signs Temp Pulse Resp BP BP Pulse Ox 01/21/25 11:32 97.5 F L 95 20 102/59 96 01/21/25 08:00 98.1 F 93 20 104/68 95 01/21/25 04:00 97.9 F 88 19 115/74 97 01/21/25 02:00 74 17 01/21/25 00:00 97.6 F 78 16 101/58 93 L 01/20/25 20:00 97.7 F 79 17 111/63 98 01/20/25 15:13 98.2 F 81 16 112/56 Intake and Output 01/20/25 01/21/25 01/21/25 22:59 06:59 14:59 Intake Total 680 360 Output Total 265 500 250 Balance 415 -500 110 Intake: Oral 680 360 Output: Urine 265 500 250 Other: Voiding Method Urinal Urinal Diaper Diaper # Voids 1 General: Revealed 74-year-old white male in no distress pleasant Head: Atraumatic normocephalic Skin: Skin is warm and dry and no rashes or lesions are noted. Eye: Pupils are equal, round and reactive to light, extra-ocular movements are intact; there is normal conjunctiva bilaterally. Ears, nose, mouth and throat: There are moist mucous membranes and no oral lesions. Neck: The neck is supple, there is no tenderness or JVD. Cardiovascular: Distant S1-S2, no S3 gallop Respiratory: Clear bilaterally no crackles rhonchi or wheezes Gastrointestinal: Soft nontender no MAG no rebound no guarding Neurological: Alert oriented x 3 no gross focal deficit Psychiatric: Normal mood affect and no mental status examination Results - Laboratory Findings CBC and BMP: 01/20/25 07:02 01/20/25 07:02 PT/INR, D-dimer PT 11.2 sec (10.0-12.5) 01/17/25 07:58 INR 1.0 (<1.2) 01/17/25 07:58 D-Dimer 0.26 mg/L FEU (<0.60) 01/16/25 13:00 Abnormal lab findings: Abnormal Labs 01/16/25 01/16/25 01/16/25 12:03 12:03 16:34 RBC Hgb Hct APTT Sodium Chloride Creatinine 0.62 L Glucose 103 H Magnesium AST Troponin I 0.090 H* 3.400 H* Total Protein Ur Specific [place] Urine Glucose (UA) 01/16/25 01/17/25 01/17/25 19:15 07:58 07:58 RBC 4.36 L Hgb Hct APTT 40.9 H Sodium Chloride Creatinine Glucose Magnesium AST Troponin I 12.200 H* Total Protein Ur Specific [place] Urine Glucose (UA) 01/17/25 01/17/25 01/17/25 08:03 14:30 22:00 RBC Hgb Hct APTT 39.7 H Sodium 133 L Chloride 97 L Creatinine 0.61 L Glucose Magnesium 1.5 L AST 81 H Troponin I Total Protein 6.1 L Ur Specific [place] >1.050 H Urine Glucose (UA) Trace H 01/18/25 01/18/25 01/18/25 06:07 06:07 06:07 RBC 4.27 L Hgb Hct 39.5 L APTT Sodium 136 L Chloride Creatinine Glucose Magnesium AST Troponin I 6.460 H* Total Protein Ur Specific [place] Urine Glucose (UA) 01/18/25 01/18/25 01/19/25 06:07 15:21 06:47 RBC Hgb Hct APTT 38.0 H 46.0 H 44.5 H Sodium Chloride Creatinine Glucose Magnesium AST Troponin I Total Protein Ur Specific [place] Urine Glucose (UA) 01/20/25 01/20/25 07:02 07:02 RBC 3.90 L Hgb 12.2 L Hct 36.0 L APTT Sodium Chloride Creatinine Glucose 102 H Magnesium AST Troponin I Total Protein Ur Specific [place] Urine Glucose (UA) - Diagnostic Findings CT scan - chest: image reviewed (As noted in HPI) Assessment and Plan Assessment: Impression: Multivessel coronary artery disease Acute non-ST elevation myocardial infarction, previous history of VA in 2017 History of previous stent placement to circumflex and LAD in 2017 Benign essential hypertension Lifetime non-smoker Nonspecific pulmonary nodules sub-5 mm Dyslipidemia Benign essential hypertension Recommendation: Continue present supportive care measures Continue maximal medical therapy for coronary artery disease Incentive spirometry Ambulate Cleared for surgery as scheduled Considered low operative risk. Will continue to follow Time with Patient: Greater than 30
--- NOTE | 2025-01-22 07:59 | P.PN ---
Subjective Progress Note Date: 01/22/25 Principal diagnosis: Multivessel coronary artery disease, non-ST elevated myocardial infarction this admission. Medical history significant for coronary artery disease with myocar dial infarction and previous stent placement to his circumflex coronary artery and left anterior descending coronary artery in August 2017, hypertension, hyperlipidemia, obesity, developmentally delayed and is a lifetime non-smoker. The patient was seen and examined in follow-up today January 22, 2025 at his bedside on the third floor cardiac stepdown unit. He is currently laying in bed, is awake, alert, oriented x 3 and is in no acute apparent distress. He denies any complaints of pain, shortness of breath, nausea or vomiting at this time. The patient reports that he did have an episode of nausea yesterday in the morning. Oxygen saturations are 92% on room air and he is achieving 1500 mL on his incentive spirometry. Remote telemetry is showing sinus tachycardia heart rate 101 bpm. He has been afebrile in the last 24 hours. He is scheduled for myocardial revascularization surgery on Friday, January 24, 2025 to be completed by Dr. Abhay Arana, with left internal mammary artery, endoscopic greater saphenous vein harvest, endoscopic left radial artery harvest, exclusion left atrial appendage and intraoperative transesophageal echocardiogram. Objective - Vital Signs Vital signs: Vital Signs Temp 98.3 F 01/22/25 04:00 Pulse 101 H 01/22/25 04:00 Resp 17 01/22/25 04:00 BP 104/65 01/22/25 04:00 Pulse Ox 92 L 01/22/25 04:00 FiO2 Intake & Output 01/21/25 01/21/25 01/22/25 06:59 18:59 06:59 Intake Total 200 600 30 Output Total 640 450 485 Balance -440 150 -455 Intake: IV 30 Invasive Line 2 20 Invasive Line 3 10 Oral 200 600 Output: Urine 640 450 485 Other: Voiding Method Urinal Urinal Diaper Diaper # Voids 1 1 # Bowel Movements 1 - Exam CONSTITUTIONAL: Appears comfortable, cooperative, no acute distress RESPIRATORY: Lungs sounds essentially clear throughout. No wheezes, rhonchi or crackles. Respirations symmetrical, and nonlabored. Currently on room air saturation 92%. Able to achieve 1500 mL on incentive spirometry. CARDIOVASCULAR: S1, S2 present. Regular rate and rhythm, sinus tachycardia on remote telemetry, heart rate 101 bpm. Palpable peripheral pulses bilaterally. Bilateral lower extremity edema present. No calf pain or tenderness noted. GASTROINTESTINAL: Abdomen soft, nontender, and nondistended. Active bowel sounds present 4 quadrants. Tolerating diet. No guarding or rigidity. GENITOURINARY: Continues to void although incontinent at times. INTEGUMENTARY: Skin is warm and dry. No clubbing or cyanosis present. NEUROLOGIC: Cranial nerves II through XII intact. MUSKULOSKELETAL: Able to move all extremities, strength equal bilaterally. Generalized weakness. PSYCHIATRIC: Alert and oriented to person, place, time, and situation. - Allied health notes Allied health notes reviewed: nursing - Labs CBC & Chem 7: 01/20/25 07:02 01/20/25 07:02 Assessment and Plan Assessment: Multivessel coronary artery disease, non-ST elevated myocardial infarction this admission History of coronary artery disease with myocardial infarction and previous stent placement to circumflex and left anterior descending coronary artery in August 2017 Hypertension Hyperlipidemia, cholesterol 174, LDL 100.8, triglycerides 139 Obesity with a BMI of 33.1 kg/m Lifetime non-smoker, preoperative FEV1 1.70, 61% of predicted value Developmental delay Plan: Patient is scheduled for coronary artery bypass surgery with left internal mammary artery, endoscopic left radial and endoscopic vein harvest, ligation of the left atrial appendage on Friday01/24/[address] Arana. Preoperative teaching has been reinforced with the patient, questions answered to the best my ability. Encouraged use of incentive spirometry 10 times every hour while awake. Continue to maximize medical management with aspirin, statin and beta-trixie. Increase activity as tolerated. Out of bed for all meals. Medical management and other comorbidities per internal medicine, and cardiology recommendations. More recommendations to follow based on patient's clinical course. Time with Patient: Less than 30
--- NOTE | 2025-01-22 12:51 | P.PN ---
Subjective HISTORY OF PRESENT ILLNESS: This is a 74-year-old male with a past medical history significant for coronary artery disease with previous stenting of the circumflex of the LAD, hypertension, and hyperlipidemia. Patient used to follow in the office with Dr. Guillen but has not been seen since October 2019. We have been asked to see the patient in consultation for chest pain. Patient examined at the bedside in the emergency room. Patient states that he was at [facility] yesterday when he began to have chest discomfort. He states the pain was in the middle of the chest. He denied any radiation of the pain. He also reported having some dizziness. The patient was found to have elevated troponins and was started on IV heparin. At the time of examination he denies any chest pain or pressure. Bedside telemetry reveals sinus mechanism. DIAGNOSTICS: - EKG reveals sinus tachycardia with no signs of acute ischemia. - Chest xray negative for acute process - Laboratory data: WBC 6.7. Hemoglobin 13.4. Platelet count 217. D-dimer 0.26. Sodium 137. Potassium 4.1. BUN 11. Creatinine 0.62. Troponin 0.090. 3.400. proBNP 1550. TSH 3.740. - Current home cardiac medications include none. - Most recent echocardiogram obtained in July 2017 revealing ejection fraction 60 to 65% with mild TR - Cardiac catheterization history: July 2017 with stenting of the proximal left circumflex. - Repeat cardiac catheterization performed in August 2017 with stenting of the LAD 01/18/2025 Patient is status post cardiac catheterization yesterday with Dr. Mccabe revealing RCA stenosis at its worst 70 to 80%. There is mid RCA lesion of 60% and divides into PDA and PLV. Ostium of the PLV has 70% stenosis and PDA has 50 to 60% stenosis. Left main artery appears calcified. There is distal left main plaque. Circumflex coronary artery reveals 95% ostial stenosis. LAD has 80 to 90% stenosis proximally in the ostial portion. CT surgery was consulted for evaluation. Patient examined this morning at the bedside. Patient currently denies chest pain or pressure. He denies shortness of breath. Vital signs are stable. Telemetry reveals sinus mechanism. Patient's brother is at the bedside. Patient's brother states that patient is at his baseline. He states that the patient is " somewhat handicapped" and " takes a long time to process what people are saying". He states that the patient has lived on his own independently for many years and takes care of himself and makes all his own medical decisions. He does state that his brother takes the bus frequently and does not have a drive away driver's license as he never driven. He states he is not able to drive because his reaction times are too slow and cannot make sudden decisions. 01/19/2025 Patient examined this morning at bedside. Patient currently denies chest pain or pressure. He denies shortness of breath. Denies dizziness or lightheadedness. Vital signs are stable. He remains on IV heparin. 01/20/2025 Patient examined this morning at the bedside. Patient currently denies chest pain or pressure. He denies shortness of breath. Vital signs are stable. Echocardiogram completed revealing ejection fraction 35% with apical septal and inferior hypokinesis, trace to mild MR, mild aortic stenosis, mild aortic regurgitation. 01/21/2025 Patient examined this morning at bedside. Patient currently denies chest pain or pressure. He denies shortness of breath. He reports nausea this morning with a small episode of emesis. Vital signs are stable. Telemetry Veals sinus mechanism. 01/22/2025 Patient examined this morning at bedside. He denies chest pain or pressure. Denies shortness of breath. Vital signs are stable. PHYSICAL EXAM: VITAL SIGNS: Reviewed. GENERAL: Well-developed in no acute distress. HEENT: Head is normocephalic. Pupils are equal, round. Sclerae anicteric. Mucous membranes of the mouth are moist. Neck supple. No JVD or thyromegaly LUNGS: Respirations even and unlabored. Lungs essentially clear to auscultation bilaterally. HEART: Regular rate and rhythm. S1 and S2 heard. ABDOMEN: Soft. Nondistended. Nontender. EXTREMITIES: Normal range of motion. No clubbing or cyanosis. Peripheral pulses intact. No lower extremity edema NEUROLOGIC: Awake and alert. Oriented x 3. ASSESSMENT: Non-STEMI, status post cardiac catheterization revealing triple-vessel disease Coronary artery disease with previous stenting of circumflex and LAD, 2017 Hypertension Hyperlipidemia Obesity: BMI 33.1 Developmental delay, at baseline per patients brother PLAN: Continue aspirin, atorvastatin, Imdur and metoprolol CT surgery following patient. Patient tentatively scheduled for CABG on 01/24/[address] Habib Further recommendations pending patient course Nurse practitioner note has been reviewed by physician. Signing provider agrees with the documented findings, assessment, and plan of care documented by NEWSPAPER PHOTOGRAPHER as a scribe. Objective - Vital Signs Vital signs: Vital Signs Temp 98.1 F 01/22/25 08:30 Pulse 93 01/22/25 11:35 Resp 19 01/22/25 11:35 BP 101/59 01/22/25 11:35 Pulse Ox 94 L 01/22/25 11:35 FiO2 Intake & Output 01/21/25 01/22/25 01/22/25 18:59 06:59 18:59 Intake Total 600 30 130 Output Total 450 485 Balance 150 -455 130 Intake: IV 30 10 Invasive Line 2 20 Invasive Line 3 10 10 Oral 600 120 Output: Urine 450 485 Other: Voiding Method Urinal Urinal Diaper Diaper # Voids 1 # Bowel Movements 1 - Labs CBC & Chem 7: 01/20/25 07:02 01/20/25 07:02
--- NOTE | 2025-01-22 13:43 | P.PN ---
Subjective Progress Note Date: 01/22/25 Principal diagnosis: Coronary artery disease This is a 74-year-old white male known history of coronary artery disease, previous stenting of circumflex and LAD, known history of hypertension, dyslipidemia, patient presented to the hospital on 01/16 with chest pain suggestive of acute coronary syndrome. Patient was seen by cardiology and he was felt to have non-ST elevation myocardial infarction started patient initially on heparin aspirin atorvastatin and metoprolol. Patient underwent cardiac catheterization, he was found to have multivessel coronary artery disease, seen by cardiothoracic surgery on consultation, and the plan is to proceed with myocardial revascularization. Workup so far included CT of the chest, it showed no acute thoracic process, it also showed nonspecific pulmonary nodules measuring up to 4 mm, and he was found to have cholelithiasis. Patient states that he is quite active, patient walks on a daily basis, and he never smoked. Denies any cough wheezing shortness of breath. Denies any fever or chills or hemoptysis. Going back to his cardiac catheterization, it showed three-vessel coronary artery disease with 80 to 90% stenosis of the LAD, 95% stenosis to the ostial circumflex coronary artery 70 to 80% stenosis to the ostium of the PLV coronary artery and 50 to 60% to the PDA coronary artery. Seen today on 01/22/2025, patient is now scheduled for myocardial revascularization on Friday. Doing well, asymptomatic, achieving over 1500 cc on incentive spirometry, not in any distress no cough no wheezing no shortness of breath, electrolytes are normal renal profile is normal CBC is normal Objective - Vital Signs Vital signs: Vital Signs Temp 98.1 F 01/22/25 08:30 Pulse 93 01/22/25 11:35 Resp 19 01/22/25 11:35 BP 101/59 01/22/25 11:35 Pulse Ox 94 L 01/22/25 11:35 FiO2 Intake & Output 01/21/25 01/22/25 01/22/25 18:59 06:59 18:59 Intake Total 600 30 130 Output Total 450 485 Balance 150 -455 130 Intake: IV 30 10 Invasive Line 2 20 Invasive Line 3 10 10 Oral 600 120 Output: Urine 450 485 Other: Voiding Method Urinal Urinal Diaper Diaper # Voids 1 # Bowel Movements 1 - Exam General: Revealed 74-year-old white male in no distress pleasant Head: Atraumatic normocephalic Skin: Skin is warm and dry and no rashes or lesions are noted. Eye: Pupils are equal, round and reactive to light, extra-ocular movements are intact; there is normal conjunctiva bilaterally. Ears, nose, mouth and throat: There are moist mucous membranes and no oral lesions. Neck: The neck is supple, there is no tenderness or JVD. Cardiovascular: Distant S1-S2, no S3 gallop Respiratory: Clear bilaterally no crackles rhonchi or wheezes Gastrointestinal: Soft nontender no MAG no rebound no guarding Neurological: Alert oriented x 3 no gross focal deficit Psychiatric: Normal mood affect and no mental status examination - Labs CBC & Chem 7: 01/20/25 07:02 01/20/25 07:02 Assessment and Plan Assessment: Impression: Multivessel coronary artery disease Acute non-ST elevation myocardial infarction, previous history of ND in 2017 History of previous stent placement to circumflex and LAD in 2017 Benign essential hypertension Lifetime non-smoker Nonspecific pulmonary nodules sub-5 mm Dyslipidemia Benign essential hypertension Recommendation: Continue present supportive care measures Continue maximal medical therapy for coronary artery disease Continue incentive spirometry Patient to have myocardial revascularization on Friday Will continue to follow Time with Patient: Less than 30
--- NOTE | 2025-01-22 18:28 | P.PN ---
Subjective Progress Note Date: 01/22/25 01/17/2025 this is 74-year-old gentleman, follows with [facility] with past medical history significant for CAD, LA with stents of the circumflex and LAD, morbid obesity, hypertension, hyperlipidemia and multiple other medical issues brought into the ER via EMS from [facility] yesterday secondary to complaints of chest pain. Patient reports during [facility] he developed midsternal chest pain/tingling, nonradiating accompanied by increased shortness of breath and lightheadedness. Denies nausea, vomiting or diarrhea.denies abdominal pain.Patient responds slowly but appropriate;baseline as per PCP.Does not drive, uses the [facility] [employer] for transportation. Patient was initiated on IV heparin drip related to elevated troponins. EKG reported sinus tachycardia. Troponins 0.090, 3.400. D-dimer WNL, 0.26. Afebrile, normal WBC, hemoglobin 14.6, platelets 255, INR 1. 137, potassium 4 1, bicarb 24, creatinine 0.62, glucose 103, magnesium 1.6. proBNP 1550, TSH 3.740. Viral studies negative. Chest x-ray reported no acute cardiopulmonary disease/process. Currently denies chest pain, palpitations or shortness of breath.Maintaining O2 sats in the high 90s to 100% on room air. 01/18/2025 completed cardiac catheterization yesterday reported severe triple- vessel disease; proximal RCA 70 to 80% stenosis, mid RCA 60% stenosis,Ostium of the PLV 70% and PDA has 50 to 60% stenosis. Circumflex coronary artery 95% ostial stenosis. LAD 80 to 90% stenosis proximally in the ostial portion. LV fu nction/echo pending. Evaluated by cardiothoracic surgery yesterday, felt to be high risk candidate. Brother Arvind at bedside, disclosed that patient had run out of medications, timeframe unknown. Currently denies chest pain, palpitations or shortness of breath. Telemetry sinus rhythm. 01/19/2025 anticoagulated on IV heparin drip. Maintained on beta-trixie, statin and aspirin. Echo results pending. Telemetry sinus rhythm .denies chest pain, palpitations or shortness of breath. Denies lightheadedness dizziness or focal deficits. Incentive spirometer up to 1999. 01/20/2025 Patient evaluated today on the cardiac unit. Sitting up in the chair. No acute complaints. Heparin gtt currently off. Echocardiogram reveals EF 35% with apical, septal and inferior hypokinesis. Trace to mild MR, mild aortic stenosis, mild AR. Patient is being considered for open heart surgery. 01/21/2025 Patient is evaluated today in follow up. He is sitting up in the chair. Having no acute complaints. Remains off IV heparin at this time. He will be going for open heart surgery on Friday. 01/22/2025 Patient is evaluated today in f/u. Patient sitting up in the chair with no acute complaints. Tolerating diet. He is saturating 95% on room air. Review of Systems Constitutional: Denied any fatigue denied any fever. Cardio vascular: denied any chest pain, palpitations Gastrointestinal: denied any nausea, vomiting, diarrhea Pulmonary: Denied any shortness of breath cough Neurologic denied any new focal deficits All inpatient medications were reviewed and appropriate changes in these medications as dictated in the interval history and assessment and plan. PHYSICAL EXAMINATION: GENERAL: The patient is alert and oriented x2-3, not in any acute distress. Well developed, well nourished. HEENT: Pupils are round and equally reacting to light. EOMI. No scleral icterus. No conjunctival pallor. Normocephalic, atraumatic. No pharyngeal erythema. No thyromegaly. CARDIOVASCULAR: S1 and S2 present. No murmurs, rubs, or gallops. PULMONARY: Chest is clear to auscultation, no wheezing or crackles. ABDOMEN: Soft, nontender, nondistended, normoactive bowel sounds. No palpable organomegaly. MUSCULOSKELETAL: No joint swelling or deformity. EXTREMITIES: No cyanosis, clubbing, or pedal edema. NEUROLOGICAL: No focal neurological deficits. SKIN: No rashes. Assessment NSTEMI, status post cardiac catheterization reporting triple-vessel disease CAD with history of LA 2017, stenting of circumflex and LAD, current ran out of his medications-states unclear on timeframe. Last refill RX recorded at [facility] as October 2019. Developmental delay, at baseline per PCP and patient's brother Arvind. Follows with [facility]. Hypertension Hyperlipidemia Morbid obesity, BMI 33 Plan Continue current cardiac medications Monitor electrolytes and renal function Encourage IS Patient will be going for coronary artery bypass grafting Friday The impression and plan of care has been dictated by Kandy Che, Nurse Practitioner as directed. Dr. Jesus Alberto MD I have performed a history and physical examination and medical decision making of this patient, discussed the same with the dictator, and agree with the dictators assessment and plan as written, documented as a scribe. Based on total visit time, I have performed more than 50% of this visit. Objective - Vital Signs Vital signs: Vital Signs Temp 98.1 F 01/22/25 08:30 Pulse 85 01/22/25 16:00 Resp 17 01/22/25 16:00 BP 95/54 01/22/25 16:00 Pulse Ox 95 01/22/25 16:00 FiO2 Intake & Output 01/21/25 01/22/25 01/22/25 18:59 06:59 18:59 Intake Total 600 30 620 Output Total 450 485 100 Balance 150 -455 520 Intake: IV 30 20 Invasive Line 2 20 Invasive Line 3 10 20 Oral 600 600 Output: Urine 450 485 100 Other: Voiding Method Urinal Urinal Diaper Diaper # Voids 1 # Bowel Movements 1 - Labs CBC & Chem 7: 01/20/25 07:02 01/20/25 07:02 Assessment and Plan Time with Patient: Less than 30
--- NOTE | 2025-01-23 07:46 | XR ---
EXAMINATION TYPE: XR chest 1V portable DATE OF EXAM: 01/23/2025 CLINICAL INDICATION: Male, 74 years old with history of preop CABG, progress study. TECHNIQUE: Single AP portable upright view of the chest is obtained. COMPARISON: Chest CT January 17, 2025 FINDINGS: There are new bilateral increased opacities right greater than left. Stable mild cardiomeg vangie. Osseous structures are intact. IMPRESSION: Mild cardiomegaly with new right greater than left acute infiltrates and/or edema. [facility], , 01/23/2025 7:44 AM
[2025-01-23 08:03] LABS: Basophils # (A) 0.06 10*3/uL (0.00-0.10); Basophils % (A) 0.8 %; Eosinophils # (A) 0.09 10*3/uL (0.04-0.35); Eosinophils % (A) 1.2 %; HCT 34.8 % (39.6-50.0); HGB 11.9 g/dL (13.0-17.0); Lymphocytes # (A) 1.72 10*3/uL (0.90-5.00); Lymphocytes % (A) 22.3 %; MCH 31.7 pg (27.0-32.0); MCHC 34.2 g/dL (32.0-37.0); MCV 92.8 fL (80.0-97.0); Mean Platelet Volume 10.5 fL (9.5-12.2); Monocytes # (A) 0.53 10*3/uL (0.20-1.00); Monocytes % (A) 6.9 %; Neutrophils # (A) 5.27 10*3/uL (1.80-7.70); Neutrophils % (A) 68.4 %; Platelet Count 259 10*3/uL (140-440); RBC 3.75 10*6/uL (4.40-5.60)
[2025-01-23 08:10] LABS: INR 1.1 (<1.2); Prothrombin Time 11.7 sec (10.0-12.5)
[2025-01-23 08:29] LABS: ALT 20 U/L (4-49); AST 50 U/L (17-59); African American GFR (CKD) >90 (>60 ml/min/1.73 sqM); Albumin 3.2 g/dL (3.5-5.0); Alkaline Phosphatase 73 U/L (38-126); Anion Gap 8 mmol/L; Blood Urea Nitrogen 16 mg/dL (9-20); Calcium 8.9 mg/dL (8.4-10.2); Carbon Dioxide 26 mmol/L (22-30); Chloride 102 mmol/L (98-107); Glucose 99 mg/dL (74-99); Magnesium 1.6 mg/dL (1.6-2.3); Non-African American GFR(CKD) >90 (>60 ml/min/1.73 sqM); Potassium 4.1 mmol/L (3.5-5.1); Sodium 136 mmol/L (137-145)
--- NOTE | 2025-01-23 10:13 | P.PN ---
Subjective Progress Note Date: 01/23/25 Principal diagnosis: Multivessel coronary artery disease, non-ST elevated myocardial infarction this admission. Medical history significant for coronary artery disease with myocar dial infarction and previous stent placement to his circumflex coronary artery and left anterior descending coronary artery in August 2017, hypertension, hyperlipidemia, obesity, developmentally delayed and is a lifetime non-smoker. Patient was seen and examined in follow-up today January 23, 2025 at his bedside on the third floor cardiac stepdown unit. He is currently laying in bed, is awake, alert, oriented x 3 and is in no acute apparent distress. He is tolerating his breakfast, although has complaints of nausea which he reports just started this a.m. Denies any complaints of shortness of breath or chest pain/pressure at this time. He is scheduled for myocardial revascularization surgery tomorrow Friday, January 24, 2025 to be completed by Dr. Abhay Arana, with left internal mammary artery, endoscopic greater saphenous vein harvest, endoscopic left radial artery harvest, exclusion left atrial appendage and intraoperative transesophageal echocardiogram. He reports he has been up ambulating in the hallway with standby assistance or nursing staff and using a walker. Chest x- ray and laboratory results reviewed. Objective - Vital Signs Vital signs: Vital Signs Temp 98 F 01/23/25 08:00 Pulse 101 H 01/23/25 08:00 Resp 22 01/23/25 08:00 BP 115/72 01/23/25 08:00 Pulse Ox 96 01/23/25 08:00 FiO2 Intake & Output 01/22/25 01/23/25 01/23/25 18:59 06:59 18:59 Intake Total 620 20 240 Output Total 100 0 100 Balance 520 20 140 Intake: IV 20 20 Invasive Line 3 20 20 Oral 600 240 Output: Urine 100 0 100 Other: Voiding Method Urinal Urinal External Catheter Diaper Diaper # Voids 1 - Exam CONSTITUTIONAL: Appears comfortable, cooperative, no acute distress RESPIRATORY: Lungs sounds essentially clear throughout, diminished to his bilateral bases. No wheezes, rhonchi or crackles. Respirations symmetrical, and nonlabored. Currently on room air saturation 92%. Able to achieve 1500 mL on incentive spirometry. CARDIOVASCULAR: S1, S2 present. Regular rate and rhythm, sinus tachycardia on remote telemetry, heart rate 109 bpm. Palpable peripheral pulses bilaterally. Bilateral lower extremity edema present. No calf pain or tenderness noted. GASTROINTESTINAL: Abdomen soft, nontender, and nondistended. Active bowel sounds present 4 quadrants. Tolerating diet. No guarding or rigidity. Episodes of nausea. GENITOURINARY: Continues to void although incontinent at times. INTEGUMENTARY: Skin is warm and dry. No clubbing or cyanosis present. NEUROLOGIC: Cranial nerves II through XII intact. MUSKULOSKELETAL: Able to move all extremities, strength equal bilaterally. Generalized weakness. PSYCHIATRIC: Alert and oriented to person, place, time, and situation. - Allied health notes Allied health notes reviewed: nursing - Labs CBC & Chem 7: 01/23/25 06:56 01/23/25 06:56 Labs: Abnormal Lab Results - Last 24 Hours (Table) 01/23/25 01/23/25 01/23/25 Range/Units 06:56 06:56 06:56 RBC 3.75 L (4.40-5.60) 10*6/uL Hgb 11.9 L (13.0-17.0) g/dL Hct 34.8 L (39.6-50.0) % Sodium 136 L (137-145) mmol/L Total Protein 6.0 L (6.3-8.2) g/dL Albumin 3.2 L (3.5-5.0) g/dL Crossmatch See Detail - Imaging and Cardiology Chest x-ray: report reviewed, image reviewed Assessment and Plan Assessment: Multivessel coronary artery disease, non-ST elevated myocardial infarction this admission History of coronary artery disease with myocardial infarction and previous stent placement to circumflex and left anterior descending coronary artery in August 2017 Hypertension Hyperlipidemia, cholesterol 174, LDL 100.8, triglycerides 139 Obesity with a BMI of 33.1 kg/m Lifetime non-smoker, preoperative FEV1 1.70, 61% of predicted value Developmental delay Plan: Patient is scheduled for coronary artery bypass surgery with left internal mammary artery, endoscopic left radial and endoscopic vein harvest, ligation of the left atrial appendage tomorrow Friday01/24/[address] Arana. Preoperative teaching has been reinforced with the patient, questions answered to the best my ability. Encouraged use of incentive spirometry 10 times every hour while awake. Continue to maximize medical management with aspirin, statin and beta-trixie. Increase activity as tolerated. Out of bed for all meals. Medical management and other comorbidities per internal medicine, and cardiology recommendations. Lasix 20 mg IV x 1 now. More recommendations to follow based on patient's clinical course. Time with Patient: Greater than 30
--- NOTE | 2025-01-23 10:17 | P.PN ---
Subjective HISTORY OF PRESENT ILLNESS: This is a 74-year-old male with a past medical history significant for coronary artery disease with previous stenting of the circumflex of the LAD, hypertension, and hyperlipidemia. Patient used to follow in the office with Dr. Guillen but has not been seen since October 2019. We have been asked to see the patient in consultation for chest pain. Patient examined at the bedside in the emergency room. Patient states that he was at [facility] yesterday when he began to have chest discomfort. He states the pain was in the middle of the chest. He denied any radiation of the pain. He also reported having some dizziness. The patient was found to have elevated troponins and was started on IV heparin. At the time of examination he denies any chest pain or pressure. Bedside telemetry reveals sinus mechanism. DIAGNOSTICS: - EKG reveals sinus tachycardia with no signs of acute ischemia. - Chest xray negative for acute process - Laboratory data: WBC 6.7. Hemoglobin 13.4. Platelet count 217. D-dimer 0.26. Sodium 137. Potassium 4.1. BUN 11. Creatinine 0.62. Troponin 0.090. 3.400. proBNP 1550. TSH 3.740. - Current home cardiac medications include none. - Most recent echocardiogram obtained in July 2017 revealing ejection fraction 60 to 65% with mild TR - Cardiac catheterization history: July 2017 with stenting of the proximal left circumflex. - Repeat cardiac catheterization performed in August 2017 with stenting of the LAD 01/18/2025 Patient is status post cardiac catheterization yesterday with Dr. Mccabe revealing RCA stenosis at its worst 70 to 80%. There is mid RCA lesion of 60% and divides into PDA and PLV. Ostium of the PLV has 70% stenosis and PDA has 50 to 60% stenosis. Left main artery appears calcified. There is distal left main plaque. Circumflex coronary artery reveals 95% ostial stenosis. LAD has 80 to 90% stenosis proximally in the ostial portion. CT surgery was consulted for evaluation. Patient examined this morning at the bedside. Patient currently denies chest pain or pressure. He denies shortness of breath. Vital signs are stable. Telemetry reveals sinus mechanism. Patient's brother is at the bedside. Patient's brother states that patient is at his baseline. He states that the patient is " somewhat handicapped" and " takes a long time to process what people are saying". He states that the patient has lived on his own independently for many years and takes care of himself and makes all his own medical decisions. He does state that his brother takes the bus frequently and does not have a airport driver's license as he never driven. He states he is not able to drive because his reaction times are too slow and cannot make sudden decisions. 01/19/2025 Patient examined this morning at bedside. Patient currently denies chest pain or pressure. He denies shortness of breath. Denies dizziness or lightheadedness. Vital signs are stable. He remains on IV heparin. 01/20/2025 Patient examined this morning at the bedside. Patient currently denies chest pain or pressure. He denies shortness of breath. Vital signs are stable. Echocardiogram completed revealing ejection fraction 35% with apical septal and inferior hypokinesis, trace to mild MR, mild aortic stenosis, mild aortic regurgitation. 01/21/2025 Patient examined this morning at bedside. Patient currently denies chest pain or pressure. He denies shortness of breath. He reports nausea this morning with a small episode of emesis. Vital signs are stable. Telemetry Veals sinus mechanism. 01/22/2025 Patient examined this morning at bedside. He denies chest pain or pressure. Denies shortness of breath. Vital signs are stable. 01/23/2025 Patient examined this morning at bedside. Patient currently denies chest pain or pressure. He denies shortness of breath. Vital signs are stable. PHYSICAL EXAM: VITAL SIGNS: Reviewed. GENERAL: Well-developed in no acute distress. HEENT: Head is normocephalic. Pupils are equal, round. Sclerae anicteric. Mucous membranes of the mouth are moist. Neck supple. No JVD or thyromegaly LUNGS: Respirations even and unlabored. Lungs essentially clear to auscultation bilaterally. HEART: Regular rate and rhythm. S1 and S2 heard. ABDOMEN: Soft. Nondistended. Nontender. EXTREMITIES: Normal range of motion. No clubbing or cyanosis. Peripheral pulses intact. No lower extremity edema NEUROLOGIC: Awake and alert. Oriented x 3. ASSESSMENT: Non-STEMI, status post cardiac catheterization revealing triple-vessel disease Coronary artery disease with previous stenting of circumflex and LAD, 2017 Hypertension Hyperlipidemia Obesity: BMI 33.1 Developmental delay, at baseline per patients brother PLAN: Continue aspirin, atorvastatin, Imdur and metoprolol CT surgery following patient. Patient tentatively scheduled for CABG on 01/24/[address] Arana Further recommendations pending patient course Nurse practitioner note has been reviewed by physician. Signing provider agrees with the documented findings, assessment, and plan of care documented by [employer] as a scribe. Objective - Vital Signs Vital signs: Vital Signs Temp 98 F 01/23/25 08:00 Pulse 101 H 01/23/25 08:00 Resp 22 01/23/25 08:00 BP 115/72 01/23/25 08:00 Pulse Ox 96 01/23/25 08:00 FiO2 Intake & Output 01/22/25 01/23/25 01/23/25 18:59 06:59 18:59 Intake Total 620 20 240 Output Total 100 0 100 Balance 520 20 140 Intake: IV 20 20 Invasive Line 3 20 20 Oral 600 240 Output: Urine 100 0 100 Other: Voiding Method Urinal Urinal External Catheter Diaper Diaper # Voids 1 - Labs CBC & Chem 7: 01/23/25 06:56 01/23/25 06:56 Labs: Abnormal Lab Results - Last 24 Hours (Table) 01/23/25 01/23/25 01/23/25 Range/Units 06:56 06:56 06:56 RBC 3.75 L (4.40-5.60) 10*6/uL Hgb 11.9 L (13.0-17.0) g/dL Hct 34.8 L (39.6-50.0) % Sodium 136 L (137-145) mmol/L Total Protein 6.0 L (6.3-8.2) g/dL Albumin 3.2 L (3.5-5.0) g/dL Crossmatch See Detail
[2025-01-23] MEDS: FUROSEMIDE 10 MG/ML 2 ML VIAL IV STA ×2 (10:36→11:05)
[2025-01-23] MEDS ORDERED: Magnesium Replacement Protocol 1 EACH MISC MISCELLANE PRN (11:17)
[2025-01-23] MEDS: MAGNESIUM SULFATE-D5W PMX 1 GM in DEXTROSE/WATER 1 100ML.BAG IVPB SCH (11:48)
[2025-01-23] MEDS: POTASSIUM BICARBONATE/CIT AC 20 MEQ TABLET.EFF PO ONE (12:37)
--- NOTE | 2025-01-23 13:51 | P.PN ---
Subjective Progress Note Date: 01/23/25 Principal diagnosis: Coronary artery disease This is a 74-year-old white male known history of coronary artery disease, previous stenting of circumflex and LAD, known history of hypertension, dyslipidemia, patient presented to the hospital on 01/16 with chest pain suggestive of acute coronary syndrome. Patient was seen by cardiology and he was felt to have non-ST elevation myocardial infarction started patient initially on heparin aspirin atorvastatin and metoprolol. Patient underwent cardiac catheterization, he was found to have multivessel coronary artery disease, seen by cardiothoracic surgery on consultation, and the plan is to proceed with myocardial revascularization. Workup so far included CT of the chest, it showed no acute thoracic process, it also showed nonspecific pulmonary nodules measuring up to 4 mm, and he was found to have cholelithiasis. Patient states that he is quite active, patient walks on a daily basis, and he never smoked. Denies any cough wheezing shortness of breath. Denies any fever or chills or hemoptysis. Going back to his cardiac catheterization, it showed three-vessel coronary artery disease with 80 to 90% stenosis of the LAD, 95% stenosis to the ostial circumflex coronary artery 70 to 80% stenosis to the ostium of the PLV coronary artery and 50 to 60% to the PDA coronary artery. Seen today on 01/22/2025, patient is now scheduled for myocardial revascularization on Friday. Doing well, asymptomatic, achieving over 1500 cc on incentive spirometry, not in any distress no cough no wheezing no shortness of breath, electrolytes are normal renal profile is normal CBC is normal Patient was seen today on 01/23/2025, patient is resting in bed, does not seem to be in any distress, supposed to undergo myocardial revascularization tomorrow. Patient did develop some component of pulmonary edema as noted on his follow-up chest x-ray, received diuretics/Lasix, and seems to be clinically better. Baseline FEV1 is 61%, Objective - Vital Signs Vital signs: Vital Signs Temp 97.8 F 01/23/25 11:08 Pulse 82 01/23/25 11:08 Resp 22 01/23/25 11:08 BP 101/59 01/23/25 11:08 Pulse Ox 95 01/23/25 11:08 FiO2 Intake & Output 01/22/25 01/23/25 01/23/25 18:59 06:59 18:59 Intake Total 620 20 240 Output Total 100 0 900 Balance 520 20 -660 Intake: IV 20 20 Invasive Line 3 20 20 Oral 600 240 Output: Urine 100 0 900 Other: Voiding Method Urinal Urinal External Catheter Diaper Diaper # Voids 1 - Exam General: Revealed 74-year-old white male in no distress pleasant, on 2 L O2 sat is 95% Head: Atraumatic normocephalic Skin: Skin is warm and dry and no rashes or lesions are noted. Eye: Pupils are equal, round and reactive to light, extra-ocular movements are intact; there is normal conjunctiva bilaterally. Ears, nose, mouth and throat: There are moist mucous membranes and no oral lesions. Neck: The neck is supple, there is no tenderness or JVD. Cardiovascular: Distant S1-S2, no S3 gallop Respiratory: Clear bilaterally no crackles rhonchi or wheezes Gastrointestinal: Soft nontender no MAG no rebound no guarding Neurological: Alert oriented x 3 no gross focal deficit Psychiatric: Normal mood affect and no mental status examination - Labs CBC & Chem 7: 01/23/25 06:56 01/23/25 06:56 Labs: Abnormal Lab Results - Last 24 Hours (Table) 01/23/25 01/23/25 01/23/25 Range/Units 06:56 06:56 06:56 RBC 3.75 L (4.40-5.60) 10*6/uL Hgb 11.9 L (13.0-17.0) g/dL Hct 34.8 L (39.6-50.0) % Sodium 136 L (137-145) mmol/L Total Protein 6.0 L (6.3-8.2) g/dL Albumin 3.2 L (3.5-5.0) g/dL Crossmatch See Detail Assessment and Plan Assessment: Impression: Multivessel coronary artery disease Acute non-ST elevation myocardial infarction, previous history of LA in 2017 History of previous stent placement to circumflex and LAD in 2017 Benign essential hypertension Lifetime non-smoker Nonspecific pulmonary nodules sub-5 mm Dyslipidemia Benign essential hypertension Recommendation: Continue diuretics Continue present supportive care measures Continue maximal medical therapy for coronary artery disease Continue incentive spirometry Myocardial revascularization is scheduled to be done tomorrow We will continue to follow Time with Patient: Less than 30
--- NOTE | 2025-01-23 14:16 | P.PN ---
Subjective Progress Note Date: 01/23/25 01/17/2025 this is 74-year-old gentleman, follows with [facility] with past medical history significant for CAD, CA with stents of the circumflex and LAD, morbid obesity, hypertension, hyperlipidemia and multiple other medical issues brought into the ER via EMS from [facility] yesterday secondary to complaints of chest pain. Patient reports during [facility] he developed midsternal chest pain/tingling, nonradiating accompanied by increased shortness of breath and lightheadedness. Denies nausea, vomiting or diarrhea.denies abdominal pain.Patient responds slowly but appropriate;baseline as per PCP.Does not drive, uses the [facility] [employer] for transportation. Patient was initiated on IV heparin drip related to elevated troponins. EKG reported sinus tachycardia. Troponins 0.090, 3.400. D-dimer WNL, 0.26. Afebrile, normal WBC, hemoglobin 14.6, platelets 255, INR 1. 137, potassium 4 1, bicarb 24, creatinine 0.62, glucose 103, magnesium 1.6. proBNP 1550, TSH 3.740. Viral studies negative. Chest x-ray reported no acute cardiopulmonary disease/process. Currently denies chest pain, palpitations or shortness of breath.Maintaining O2 sats in the high 90s to 100% on room air. 01/18/2025 completed cardiac catheterization yesterday reported severe triple- vessel disease; proximal RCA 70 to 80% stenosis, mid RCA 60% stenosis,Ostium of the PLV 70% and PDA has 50 to 60% stenosis. Circumflex coronary artery 95% ostial stenosis. LAD 80 to 90% stenosis proximally in the ostial portion. LV fu nction/echo pending. Evaluated by cardiothoracic surgery yesterday, felt to be high risk candidate. Brother Arvind at bedside, disclosed that patient had run out of medications, timeframe unknown. Currently denies chest pain, palpitations or shortness of breath. Telemetry sinus rhythm. 01/19/2025 anticoagulated on IV heparin drip. Maintained on beta-trixie, statin and aspirin. Echo results pending. Telemetry sinus rhythm .denies chest pain, palpitations or shortness of breath. Denies lightheadedness dizziness or focal deficits. Incentive spirometer up to 1999. 01/20/2025 Patient evaluated today on the cardiac unit. Sitting up in the chair. No acute complaints. Heparin gtt currently off. Echocardiogram reveals EF 35% with apical, septal and inferior hypokinesis. Trace to mild MR, mild aortic stenosis, mild AR. Patient is being considered for open heart surgery. 01/21/2025 Patient is evaluated today in follow up. He is sitting up in the chair. Having no acute complaints. Remains off IV heparin at this time. He will be going for open heart surgery on Friday. 01/22/2025 Patient is evaluated today in f/u. Patient sitting up in the chair with no acute complaints. Tolerating diet. He is saturating 95% on room air. 01/23/2025 Patient evaluated today in follow up. Reports no acute complaints, denies any chest pressure, chest pain. Denies shortness of breath. Chest xray this morning reveals mild cardiomegaly with new right greater than left acute infiltrates and or edema. He received IV lasix 40 mg dose today. Sodium of 136, potassium 4.1, BUN 16, creatinine 0.70. White blood cell count 7.70, hgb 11.9. Patient is afebrile, heart rate 82, blood pressure 101/59, 95% on 2L of oxygen via nasal cannula. Review of Systems Constitutional: Denied any fatigue denied any fever. Cardio vascular: denied any chest pain, palpitations Gastrointestinal: denied any nausea, vomiting, diarrhea Pulmonary: Denied any shortness of breath cough Neurologic denied any new focal deficits All inpatient medications were reviewed and appropriate changes in these medications as dictated in the interval history and assessment and plan. PHYSICAL EXAMINATION: GENERAL: The patient is alert and oriented x2-3, not in any acute distress. Well developed, well nourished. HEENT: Pupils are round and equally reacting to light. EOMI. No scleral icterus. No conjunctival pallor. Normocephalic, atraumatic. No pharyngeal erythema. No thyromegaly. CARDIOVASCULAR: S1 and S2 present. No murmurs, rubs, or gallops. PULMONARY: Chest is clear to auscultation, no wheezing or crackles. ABDOMEN: Soft, nontender, nondistended, normoactive bowel sounds. No palpable organomegaly. MUSCULOSKELETAL: No joint swelling or deformity. EXTREMITIES: No cyanosis, clubbing, or pedal edema. NEUROLOGICAL: No focal neurological deficits. SKIN: No rashes. Assessment NSTEMI, status post cardiac catheterization reporting triple-vessel disease CAD with history of CA 2017, stenting of circumflex and LAD, current ran out of his medications-states unclear on timeframe. Last refill RX [facility] at [facility] as October 2019. Developmental delay, at baseline per PCP and patient's brother Arvind. Follows with [facility]. Volume overload status post IV lasix Hypertension Hyperlipidemia Morbid obesity, BMI 33 Plan Continue current cardiac medications Monitor electrolytes and renal function Status post IV lasix x 1. Encourage IS Patient will be going for coronary artery bypass grafting Friday The impression and plan of care has been dictated by Kandy Che Nurse Practitioner as directed. Dr. Jesus Alberto MD I have performed a history and physical examination and medical decision making of this patient, discussed the same with the dictator, and agree with the dictators assessment and plan as written, documented as a scribe. Based on total visit time, I have performed more than 50% of this visit. Objective - Vital Signs Vital signs: Vital Signs Temp 97.8 F 01/23/25 11:08 Pulse 82 01/23/25 11:08 Resp 22 01/23/25 11:08 BP 101/59 01/23/25 11:08 Pulse Ox 95 01/23/25 11:08 FiO2 Intake & Output 01/22/25 01/23/25 01/23/25 18:59 06:59 18:59 Intake Total 620 20 240 Output Total 100 0 2200 Balance 520 20 -1960 Intake: IV 20 20 Invasive Line 3 20 20 Oral 600 240 Output: Urine 100 0 1700 Emesis 500 Other: Voiding Method Urinal Urinal External Catheter Diaper Diaper # Voids 1 - Labs CBC & Chem 7: 01/23/25 06:56 01/23/25 06:56 Labs: Abnormal Lab Results - Last 24 Hours (Table) 01/23/25 01/23/25 01/23/25 Range/Units 06:56 06:56 06:56 RBC 3.75 L (4.40-5.60) 10*6/uL Hgb 11.9 L (13.0-17.0) g/dL Hct 34.8 L (39.6-50.0) % Sodium 136 L (137-145) mmol/L Total Protein 6.0 L (6.3-8.2) g/dL Albumin 3.2 L (3.5-5.0) g/dL Crossmatch See Detail Assessment and Plan Time with Patient: Less than 30
[2025-01-24] MEDS: METOPROLOL TARTRATE 12.5 MG TAB PO ONE (05:00)
[2025-01-24] MEDS: ATORVASTATIN 10 MG TAB PO ONE (05:00)
[2025-01-24] MEDS ORDERED: NOREPINEPHRINE 4 MG in SODIUM CHLORIDE 0.9% 250 ML IV SCH (05:00)
[2025-01-24] MEDS: ASPIRIN 325 MG TAB PO ONE (05:00)
[2025-01-24] MEDS ORDERED: INSULIN REGULAR 100 UNIT in SODIUM CHLORIDE 0.9% 100 ML IV SCH (06:00)
[2025-01-24] MEDS: LACTATED RINGERS 1,000 ML IV ONE (06:49)
[2025-01-24 07:16] LABS: Glucose,Whole Blood 108 mg/dL (70-110)
[2025-01-24] MEDS ORDERED: LIDOCAINE 2% SYG (PF) 100 MG/5 ML ONE (07:35)
[2025-01-24] MEDS ORDERED: VASOPRESSIN 20 UNIT/ML 1 ML VIAL ONE (07:35)
[2025-01-24] MEDS ORDERED: ePHEDrine 50 MG/ML 1 ML VIAL ONE (07:35)
[2025-01-24] MEDS ORDERED: VECURONIUM 10 MG VIAL IV ONE (07:35)
[2025-01-24] MEDS ORDERED: PHENYLEPHRINE-0.9% NACL SYG 1,000 MCG/10 ML SYRINGE ONE (07:35)
[2025-01-24] MEDS ORDERED: NOREPINEPHRINE 1 MG/ML 4 ML VIAL IV ONE (07:35)
[2025-01-24] MEDS ORDERED: NITROGLYCERIN-D5W PMX 25 MG/250 ML BTL IV ONE (07:35)
[2025-01-24] MEDS ORDERED: EPINEPHrine 10 ML SYRINGE (0.1 MG/ML) ONE (07:35)
[2025-01-24] MEDS ORDERED: PROTAMINE SULFATE 10 MG/ML 25 ML VIAL IV ONE (07:35)
[2025-01-24] MEDS ORDERED: PROPOFOL 10 MG/ML 20 ML VIAL IV ONE (07:35)
[2025-01-24] MEDS ORDERED: ALBUMIN HUMAN 5% (25gm) 500 ML VIAL IVPB ONE (07:35)
[2025-01-24] MEDS ORDERED: CALCIUM CHLORIDE 100 MG/ML 10 ML SYRINGE ONE (07:35)
[2025-01-24] MEDS ORDERED: MIDAZOLAM HCL 10 MG/10 ML VIAL ONE (07:35)
[2025-01-24] MEDS ORDERED: INSULIN REGULAR 100 UNIT/ML VIAL (IV) ONE (07:35)
[2025-01-24] MEDS ORDERED: WATER FOR INJECTION, STERILE 10 ML VIAL IV ONE (07:35)
[2025-01-24] MEDS ORDERED: MILRINONE 1 MG/ML 20 ML VIAL IV ONE (07:35)
[2025-01-24] MEDS ORDERED: fentaNYL (PF) 50 MCG/ML 50 ML VIAL ONE (07:35)
[2025-01-24] MEDS ORDERED: TRANEXAMIC 1,000 MG/100ML-NACL PREMIX BAG ONE (07:35)
--- NOTE | 2025-01-24 07:38 | XR ---
EXAMINATION TYPE: XR chest 1V portable DATE OF EXAM: 01/24/2025 6:59 AM COMPARISON: 01/23/2025 CLINICAL INDICATION: Male, 74 years old with history of Preop CABG, , FINDINGS: Heart mildly enlarged. Medium diffuse interstitial opacities which show slight interval improvement. No lincoln consolidation or sizable pleural effusion. IMPRESSION: Mild cardiomegaly and medium diffuse interstitial opacities which show slight improvement from prior. [facility], Workstation: [id number], 01/24/2025 7:36 AM
[2025-01-24] MEDS: ceFAZolin 2 GM in DEXTROSE 5% IN WATER 50 ML IVPB ONE (08:15)
[2025-01-24 08:40] LABS: ABG Base Excess 4.2 mmol/L; ABG Glucose Whole Blood 110 mg/dL (75-99); ABG HCO3 28 mmol/L (21-25); ABG Hematocrit 32 % (34.0-46.0); ABG Ionized Calcium 4.6 mg/dL (4.5-5.3); ABG Lactic Acid Whole Blood 0.7 mmol/L (0.5-1.6); ABG Oxygen Saturation 99.1 % (94-97); ABG PCO2 38 mmHg (35-45); ABG PH 7.48 (7.35-7.45); ABG PO2 155 mmHg (83-108); ABG Sodium Whole Blood 135 mmol/L (135-146); ABG TCO2 26 mmol/L (19-24); Allen Test Performed? Yes
--- NOTE | 2025-01-24 09:20 | P.ANPRN ---
Procedure Note - Anesthesia - Invasive Line Right Vernon Ava Time Out Performed: Yes ([id number]) Date of Procedure: 01/24/25 Time of Procedure: 07:29 Location of Patient: PreOp Preparation: Sterile Prep, Sterile Dressing Vernon Ava Line Location: Internal Jugular (Right IJ) Ultrasound Used: No Purpose - Visualization and Identification of Vasculature: No Image Stored and Saved: No Narrative: Invasive line placement per sterile protocol utilized. Anesthesia note Procedure right Vernon-Ava catheter placed through right internal jugular central venous catheter Sterile protocol maintained from previous procedure. Vernon-Ava catheter sterilely placed in sheath and flushed prior to insertion. After advancing 15 cm Vernon-Ava catheter was then slowly inserted with balloon up. Advanced through CVP, RV to PA waveform. Vernon-Ava catheter wedged around 53 cm. Balloon down. Catheter withdrawn 5 cm. . No wedge. Proximal and distal sites locked on sheath. Attempts x1. Sterile drapes removed and dressings applied.
--- NOTE | 2025-01-24 09:20 | P.ANPRN ---
Procedure Note - Anesthesia - Invasive Line Right Central Line Time Out Performed: Yes ([id number]) Date of Procedure: 01/24/25 Time of Procedure: 07:15 Location of Patient: PreOp Preparation: Sterile Prep, Sterile Dressing Central Line Location: Internal Jugular (Right IJ) Ultrasound Used: Yes Purpose - Visualization and Identification of Vasculature: Yes Needle Guage: 18-gauge angio Image Stored and Saved: Yes Narrative: Invasive line placement per sterile protocol utilized. Anesthesia note Procedure: Right internal jugular central venous catheter insertion: 8.5-Prydeinig Cordis Sterile protocol followed. Right neck prepped. Ultrasound used. Lidocaine 1% used. Using ultrasound local anesthetic was instilled site over right Internal Jugular vein. Angiocath was used to gain access via ultrasound. Once free flow non-pulsatile blood flow was confirmed, 12 inch extension tubing was then placed on Angiocath. Once central venous pressure was confirmed, J-wire was then placed through Angiocath. Angiocath was then withdrawn. Local was instilled at J-wire site. Small skin kevin was then made with provided sterile scalpel. 8.5- Prydeinig Cordis was then inserted over the wire while maintaining control of wire at all times. Uneventful insertion with dilation. Free flow nonpulsatile blood flow through Cordis. Hooked up to IV tubing. Secured with suture. Dressings applied. Drapes Removed. Attempts x1.
--- NOTE | 2025-01-24 09:22 | P.ANPRN ---
Procedure Note - Anesthesia - DESTINY Intraop Pre Bypass DESTINY Intraop - Anesthesia Indication: Coronary artery disease, open heart Date of Procedure: 01/24/25 Pre-operative Diagnosis: Coronary artery disease Post-operative Diagnosis: Same Surgeon: Abhay Arana Ejection Fraction: Other (40-45) Regional Wall Motion Abnormalities: Other (Anterior septal) Left Ventricle Hypertrophy: No R. Ventricle Function: Normal Anatomy: Trileaflet Aortic Stenosis: Mild (Peak gradient of 15) Aortic Regurgitation: Trace Mitral Stenosis: None Mitral Regurgitation: Trace Tricuspid Stenosis: None Tricuspid Regurgitation: None Pulmonic Stenosis: None Pulmonic Regurgitation: None R. Atrial Dilation: No R. Atrial PFO: No L. Atrial Dilation: No Aortic Dissection: No Aortic Calcification: None Plural Effusion: None
[2025-01-24] MEDS: PAPAVERINE 360 MG in SODIUM CHLORIDE 0.9% 90 ML IV ONE (09:31)
[2025-01-24] MEDS: ceFAZolin 1,000 MG in SODIUM CHLORIDE 0.9% IRRIGATIO 1,000 ML IRRIGATION ONE (09:31)
[2025-01-24] MEDS: HEPARIN SODIUM,PORCINE (1 ML) 5,000 UNIT in SODIUM CHLORIDE 0.9% 500 ML 500 ML IV ONE (09:31)
[2025-01-24] MEDS: DILTIAZEM 125 MG in DEXTROSE 5% IN WATER 100 ML IV SCH (09:31)
[2025-01-24 09:41] LABS: ABG Base Excess -7.4 mmol/L; ABG Glucose Whole Blood 85 mg/dL (75-99); ABG HCO3 17 mmol/L (21-25); ABG Oxygen Saturation 99.1 % (94-97); ABG PCO2 30 mmHg (35-45); ABG PH 7.36 (7.35-7.45); ABG PO2 211 mmHg (83-108); ABG Potassium Whole Blood 4.4 mmol/L (3.4-4.5); ABG Sodium Whole Blood 134 mmol/L (135-146); ABG TCO2 17 mmol/L (19-24); Allen Test Performed? Yes
[2025-01-24 10:11] LABS: ABG Glucose Whole Blood 224 mg/dL (75-99); ABG HCO3 24 mmol/L (21-25); ABG Hematocrit 26 % (34.0-46.0); ABG Ionized Calcium 4.3 mg/dL (4.5-5.3); ABG Oxygen Saturation 99.3 % (94-97); ABG PCO2 51 mmHg (35-45); ABG PH 7.28 (7.35-7.45); ABG Potassium Whole Blood 3.1 mmol/L (3.4-4.5); ABG Sodium Whole Blood 137 mmol/L (135-146); ABG TCO2 23 mmol/L (19-24); Allen Test Performed? Yes
[2025-01-24 10:51] LABS: ABG Base Excess -0.3 mmol/L; ABG Glucose Whole Blood 189 mg/dL (75-99); ABG HCO3 24 mmol/L (21-25); ABG Ionized Calcium 4.2 mg/dL (4.5-5.3); ABG Oxygen Saturation >99.4 % (94-97); ABG PCO2 38 mmHg (35-45); ABG PH 7.41 (7.35-7.45); ABG PO2 348 mmHg (83-108); ABG Potassium Whole Blood 4.7 mmol/L (3.4-4.5); ABG Sodium Whole Blood 135 mmol/L (135-146); Allen Test Performed? Yes
[2025-01-24 11:33] LABS: ABG Base Excess 0.8 mmol/L; ABG Glucose Whole Blood 197 mg/dL (75-99); ABG HCO3 25 mmol/L (21-25); ABG Ionized Calcium 4.2 mg/dL (4.5-5.3); ABG Oxygen Saturation >99.4 % (94-97); ABG PCO2 38 mmHg (35-45); ABG PH 7.43 (7.35-7.45); ABG PO2 295 mmHg (83-108); ABG Potassium Whole Blood 4.5 mmol/L (3.4-4.5); ABG Sodium Whole Blood 135 mmol/L (135-146); Allen Test Performed? Yes
[2025-01-24 12:02] LABS: ABG Base Excess -0.6 mmol/L; ABG Glucose Whole Blood 187 mg/dL (75-99); ABG HCO3 25 mmol/L (21-25); ABG Ionized Calcium 4.2 mg/dL (4.5-5.3); ABG Oxygen Saturation 99.2 % (94-97); ABG PCO2 45 mmHg (35-45); ABG PH 7.36 (7.35-7.45); ABG PO2 260 mmHg (83-108); ABG Potassium Whole Blood 4.7 mmol/L (3.4-4.5); ABG Sodium Whole Blood 135 mmol/L (135-146); ABG TCO2 24 mmol/L (19-24); Allen Test Performed? Yes
[2025-01-24 13:07] LABS: ABG Base Excess -2.9 mmol/L; ABG Glucose Whole Blood 163 mg/dL (75-99); ABG HCO3 23 mmol/L (21-25); ABG Hematocrit 25 % (34.0-46.0); ABG Ionized Calcium 4.3 mg/dL (4.5-5.3); ABG Oxygen Saturation 93.3 % (94-97); ABG PCO2 47 mmHg (35-45); ABG PH 7.31 (7.35-7.45); ABG PO2 66 mmHg (83-108); ABG Potassium Whole Blood 3.9 mmol/L (3.4-4.5); ABG Sodium Whole Blood 137 mmol/L (135-146); ABG TCO2 23 mmol/L (19-24); Allen Test Performed? Yes
[2025-01-24 13:10] LABS: ABG Hematocrit 24 % (34.0-46.0); ABG Ionized Calcium 8.5 mg/dL (4.5-5.3); ABG Lactic Acid Whole Blood 6.3 mmol/L (0.5-1.6)
[2025-01-24 13:11] LABS: ABG Lactic Acid Whole Blood 5.7 mmol/L (0.5-1.6); ABG PO2 >420 mmHg (83-108)
[2025-01-24 13:11] LABS: ABG Hematocrit 23 % (34.0-46.0); ABG Lactic Acid Whole Blood 3.8 mmol/L (0.5-1.6)
[2025-01-24 13:13] LABS: ABG Hematocrit 22 % (34.0-46.0)
[2025-01-24 13:14] LABS: ABG Hematocrit 22 % (34.0-46.0); ABG Lactic Acid Whole Blood 3.2 mmol/L (0.5-1.6)
[2025-01-24 13:15] LABS: ABG Lactic Acid Whole Blood 4.1 mmol/L (0.5-1.6)
[2025-01-24] MEDS ORDERED: IPRATROPIUM-ALBUTEROL 3 ML NEB INHALATION PRN (14:05)
[2025-01-24] MEDS ORDERED: Potassium Replacement Protocol 1 EACH MISC MISCELLANE PRN (14:05)
[2025-01-24] MEDS ORDERED: DEXTROSE 50% SYRINGE 50 ML IVP PRN ×2 (14:05)
[2025-01-24] MEDS ORDERED: DEXTROSE 5% IN WATER 100 ML with AMIODARONE 150 MG IV PRN (14:05)
[2025-01-24] MEDS ORDERED: BENZOCAINE/MENTHOL LOZENG 1 EACH LOZENGE MUCOUS MEM PRN (14:05)
[2025-01-24] MEDS ORDERED: AMIODARONE 450 MG in DEXTROSE 5% IN WATER 250 ML IV PRN (14:05)
[2025-01-24] MEDS ORDERED: CLEVIDIPINE BUTYRATE 25 MG in EMPTY BAG 1 BAG IV PRN (14:05)
[2025-01-24] MEDS ORDERED: Magnesium Replacement Protocol 1 EACH MISC MISCELLANE PRN (14:05)
[2025-01-24] MEDS ORDERED: hydrALAZINE HCL 20 MG/ML 1 ML VIAL IVP PRN (14:05)
[2025-01-24] MEDS ORDERED: AMIODARONE 360 MG in DEXTROSE 5% IN WATER 200 ML IV PRN (14:05)
[2025-01-24] MEDS ORDERED: ONDANSETRON 4 MG/2 ML VIAL IVP PRN (14:05)
[2025-01-24] MEDS ORDERED: INSULIN REGULAR BOLUS (FROM DRIP BAG) IV PRN (14:05)
[2025-01-24] MEDS: DESMOPRESSIN ACETATE 30 MCG in SODIUM CHLORIDE 0.9% 50 ML IVPB STA (14:18)
[2025-01-24 14:25] LABS: Glucose,Whole Blood 142 mg/dL (70-110)
[2025-01-24 14:37] LABS: Ionized Calcium 4.4 mg/dL (4.5-5.3)
[2025-01-24] MEDS: ALBUMIN HUMAN 5% 250 ML in EMPTY BAG 1 BAG IVPB PRN (14:38)
[2025-01-24] MEDS: NITROGLYCERIN-D5W PMX 50 MG in DEXTROSE/WATER 1 250ML.BAG IV SCH (14:38)
[2025-01-24 14:46] LABS: ALT 27 U/L (4-49); AST 57 U/L (17-59); African American GFR (CKD) >90 (>60 ml/min/1.73 sqM); Albumin 2.6 g/dL (3.5-5.0); Alkaline Phosphatase 45 U/L (38-126); Anion Gap 9 mmol/L; Blood Urea Nitrogen 14 mg/dL (9-20); Calcium 8.2 mg/dL (8.4-10.2); Carbon Dioxide 23 mmol/L (22-30); Chloride 103 mmol/L (98-107); Glucose 116 mg/dL (74-99); Magnesium 2.3 mg/dL (1.6-2.3); Non-African American GFR(CKD) >90 (>60 ml/min/1.73 sqM); Potassium 4.4 mmol/L (3.5-5.1); Sodium 135 mmol/L (137-145); Total Bilirubin 1.3 mg/dL (0.2-1.3); Total Protein 4.2 g/dL (6.3-8.2)
[2025-01-24 14:47] LABS: Immature Platelet Fraction 3.1 % (1.1-6.1); MCH 31.4 pg (27.0-32.0); MCHC 33.3 g/dL (32.0-37.0); MCV 94.2 fL (80.0-97.0); Mean Platelet Volume 9.4 fL (9.5-12.2); RBC 2.23 10*6/uL (4.40-5.60); RDW 14.9 % (11.5-14.5)
[2025-01-24 14:49] LABS: Platelet Count 106 10*3/uL (140-440)
[2025-01-24] MEDS: MILRINONE-D5W PMX 20 MG in DEXTROSE/WATER 1 100ML.BAG IV SCH (14:52)
[2025-01-24 14:53] LABS: ABG Base Excess -0.5 mmol/L; ABG HCO3 25 mmol/L (21-25); ABG Oxygen Saturation >100.0 % (94-97); ABG PCO2 41 mmHg (35-45); ABG PH 7.38 (7.35-7.45); ABG PO2 367 mmHg (83-108); ABG TCO2 26 mmol/L (19-24)
[2025-01-24] MEDS: NOREPINEPHRINE 4 MG in SODIUM CHLORIDE 0.9% 250 ML IV SCH (14:53)
[2025-01-24] MEDS: SODIUM CHLORIDE 0.9% 1,000 ML IV SCH (14:54)
[2025-01-24 14:57] LABS: Allen Test Performed? no
--- NOTE | 2025-01-24 15:10 | P.PN ---
Subjective Progress Note Date: 01/24/25 This is a 74-year-old white male known history of coronary artery disease, previous stenting of circumflex and LAD, known history of hypertension, dyslipidemia, patient presented to the hospital on 01/16 with chest pain suggestive of acute coronary syndrome. Patient was seen by cardiology and he was felt to have non-ST elevation myocardial infarction started patient initially on heparin aspirin atorvastatin and metoprolol. Patient underwent cardiac catheterization, he was found to have multivessel coronary artery disease, seen by cardiothoracic surgery on consultation, and the plan is to proceed with myocardial revascularization. Workup so far included CT of the chest, it showed no acute thoracic process, it also showed nonspecific pulmonary nodules measuring up to 4 mm, and he was found to have cholelithiasis. Patient states that he is quite active, patient walks on a daily basis, and he never smoked. Denies any cough wheezing shortness of breath. Denies any fever or chills or hemoptysis. Going back to his cardiac catheterization, it showed three-vessel coronary artery disease with 80 to 90% stenosis of the LAD, 95% stenosis to the ostial circumflex coronary artery 70 to 80% stenosis to the ostium of the PLV coronary artery and 50 to 60% to the PDA coronary artery. Seen today on 01/22/2025, patient is now scheduled for myocardial revascularization on Friday. Doing well, asymptomatic, achieving over 1500 cc on incentive spirometry, not in any distress no cough no wheezing no shortness of breath, electrolytes are normal renal profile is normal CBC is normal Patient was seen today on 01/23/2025, patient is resting in bed, does not seem to be in any distress, supposed to undergo myocardial revascularization tomorrow. Patient did develop some component of pulmonary edema as noted on his follow-up chest x-ray, received diuretics/Lasix, and seems to be clinically better. Baseline FEV1 is 61%, The patient is seen today January 24, 2025 in follow-up in the intensive care unit. He is now status post coronary artery bypass grafting with a CHOE to the LAD RHA to the OM, SVG to the PDA and left atrial appendage clipping. Currently on the mechanical ventilator and assist-control mode at a rate of 16, tidal volume 500 and FiO2 100% and a PEEP of 10. Arterial blood gases revealed a PaO2 of 367, [id number] and a pH of 7.38. He is currently on a nitroglycerin drip at 5 mcg/min. 7 5 mcg/kg/min. Norepinephrine at 0.07 mcg/kg/min. Propofol at 20 mcg/kg/min. Normal saline at 50 mL/h. He has a right, left and mediastinal chest tube in place. Cardiac output 4.4. Cardiac index 2.1. PA pressure 26/12. He did receive 2 units of fresh frozen plasma and 1 albumin since his return from the OR. White count 9.8. Hemoglobin 7.0. Platelets 106. Sodium 135. Potassium 4.4. Bicarb 23. BUN 14. Creatinine 0.62. Glucose 116. He is initiated on DuoNeb ventilations. Heparin for DVT prophylaxis. Objective - Vital Signs Vital signs: Vital Signs Temp 96.8 F L 01/24/25 15:01 Pulse 88 01/24/25 15:01 Resp 16 01/24/25 15:01 BP 70/28 01/24/25 15:01 Pulse Ox 100 01/24/25 15:01 FiO2 50 01/24/25 14:57 Intake & Output 01/23/25 01/24/25 01/24/25 18:59 06:59 18:59 Intake Total 240 170 696 Output Total 3500 1300 3000 Balance -9397 -0310 2303 Weight 98.9 kg Intake: IV 50 54 Oral 240 120 Blood Product 642 Ffp 24 Pher Acda Unit 390 [id number] Ffp 24 Pher Acda Cnt2 0 Unit [id number] Platelet Pheresis Pas 252 Psoralen Unit [id number] Output: Urine 2500 1300 500 Emesis 1000 Estimated Blood Loss 2500 Other: Voiding Method External Catheter External Catheter # Voids 1 - Exam GENERAL EXAM: Intubated, sedated 74-year-old male on the mechanical ventilator. HEAD: Normocephalic. EYES: Sluggish reaction of pupils, equal size. NOSE: Clear with pink turbinates. THROAT: Oral endotracheal and gastric tube secured in place. No erythema or exudates. NECK: Right IJ Beaum[place]-Ava catheter in place. No masses, no JVD. CHEST: Sternal dressing dry and intact. Right, left and mediastinal chest tubes in place. LUNGS: Equal air entry with no crackles, wheeze, rhonchi or dullness. CVS: S1 and S2 normal with no audible murmur, regular rhythm. ABDOMEN: No hepatosplenomegaly, no guarding or rigidity. SPINE: No scoliosis or deformity SKIN: No rashes CENTRAL NERVOUS SYSTEM: Sedated, tone is normal in all 4 extremities. EXTREMITIES: Left upper extremity with Wyatt wrap in place. Right radial arterial line in place. Bilateral lower extremities with Wyatt wraps in place. Peripheral pulses are intact. - Labs CBC & Chem 7: 01/24/25 14:24 01/24/25 14:24 Labs: Abnormal Lab Results - Last 24 Hours (Table) 01/23/25 01/24/25 01/24/25 Range/Units 06:56 08:43 09:41 RBC (4.40-5.60) 10*6/uL Hgb (13.0-17.0) g/dL Hct (39.6-50.0) % Plt Count (140-440) 10*3/uL MPV (9.5-12.2) fL Immature Gran # (0.00-0.04) 10*3/uL ABG pH 7.48 H (7.35-7.45) ABG pCO2 30 L (35-45) mmHg ABG pO2 155 H 211 H (83-108) mmHg ABG HCO3 28 H 17 L (21-25) mmol/L ABG Total CO2 26 H 17 L (19-24) mmol/L ABG O2 Saturation 99.1 H 99.1 H (94-97) % ABG Hematocrit 32 L 24 L (34.0-46.0) % ABG Sodium 134 L (135-146) mmol/L ABG Potassium (3.4-4.5) mmol/L ABG Ionized Calcium 8.5 H* (4.5-5.3) mg/dL ABG Glucose 110 H (75-99) mg/dL ABG Lactic Acid 6.3 H* (0.5-1.6) mmol/L Hemoglobin 10.5 L 7.8 L (13.0-17.5) gm/dL Sodium (137-145) mmol/L Creatinine (0.66-1.25) mg/dL Glucose (74-99) mg/dL POC Glucose (mg/dL) (70-110) mg/dL Calcium (8.4-10.2) mg/dL Ionized Calcium Rupert (4.5-5.3) mg/dL Total Protein (6.3-8.2) g/dL Albumin (3.5-5.0) g/dL Arterial Blood Potassium (3.4-4.5) mmol/L Arterial Blood Glucose 110 H (75-99) mg/dL Crossmatch See Detail 01/24/25 01/24/25 01/24/25 Range/Units 10:11 10:51 11:33 RBC (4.40-5.60) 10*6/uL Hgb (13.0-17.0) g/dL Hct (39.6-50.0) % Plt Count (140-440) 10*3/uL MPV (9.5-12.2) fL Immature Gran # (0.00-0.04) 10*3/uL ABG pH 7.28 L (7.35-7.45) ABG pCO2 51 H (35-45) mmHg ABG pO2 >420 H 348 H 295 H (83-108) mmHg ABG HCO3 (21-25) mmol/L ABG Total CO2 (19-24) mmol/L ABG O2 Saturation 99.3 H >99.4 H >99.4 H (94-97) % ABG Hematocrit 26 L 23 L 22 L (34.0-46.0) % ABG Sodium (135-146) mmol/L ABG Potassium 3.1 L 4.7 H (3.4-4.5) mmol/L ABG Ionized Calcium 4.3 L 4.2 L 4.2 L (4.5-5.3) mg/dL ABG Glucose 224 H 189 H 197 H (75-99) mg/dL ABG Lactic Acid 5.7 H* 3.8 H* 3.0 H* (0.5-1.6) mmol/L Hemoglobin 8.6 L 7.5 L 7.1 L (13.0-17.5) gm/dL Sodium (137-145) mmol/L Creatinine (0.66-1.25) mg/dL Glucose (74-99) mg/dL POC Glucose (mg/dL) (70-110) mg/dL Calcium (8.4-10.2) mg/dL Ionized Calcium Rupert (4.5-5.3) mg/dL Total Protein (6.3-8.2) g/dL Albumin (3.5-5.0) g/dL Arterial Blood Potassium 3.1 L 4.7 H (3.4-4.5) mmol/L Arterial Blood Glucose 224 H 189 H 197 H (75-99) mg/dL Crossmatch 01/24/25 01/24/25 01/24/25 Range/Units 12:02 13:14 14:24 RBC 2.23 L (4.40-5.60) 10*6/uL Hgb 7.0 L D (13.0-17.0) g/dL Hct 21.0 L (39.6-50.0) % Plt Count 106 L D (140-440) 10*3/uL MPV 9.4 L (9.5-12.2) fL Immature Gran # 0.08 H (0.00-0.04) 10*3/uL ABG pH 7.31 L (7.35-7.45) ABG pCO2 47 H (35-45) mmHg ABG pO2 260 H 66 L (83-108) mmHg ABG HCO3 (21-25) mmol/L ABG Total CO2 (19-24) mmol/L ABG O2 Saturation 99.2 H 93.3 L (94-97) % ABG Hematocrit 22 L 25 L (34.0-46.0) % ABG Sodium (135-146) mmol/L ABG Potassium 4.7 H (3.4-4.5) mmol/L ABG Ionized Calcium 4.2 L 4.3 L (4.5-5.3) mg/dL ABG Glucose 187 H 163 H (75-99) mg/dL ABG Lactic Acid 3.2 H* 4.1 H* (0.5-1.6) mmol/L Hemoglobin 7.1 L 8.1 L (13.0-17.5) gm/dL Sodium (137-145) mmol/L Creatinine (0.66-1.25) mg/dL Glucose (74-99) mg/dL POC Glucose (mg/dL) (70-110) mg/dL Calcium (8.4-10.2) mg/dL Ionized Calcium Rupert (4.5-5.3) mg/dL Total Protein (6.3-8.2) g/dL Albumin (3.5-5.0) g/dL Arterial Blood Potassium 4.7 H (3.4-4.5) mmol/L Arterial Blood Glucose 187 H 163 H (75-99) mg/dL Crossmatch 01/24/25 01/24/25 01/24/25 Range/Units 14:24 14:24 14:51 RBC (4.40-5.60) 10*6/uL Hgb (13.0-17.0) g/dL Hct (39.6-50.0) % Plt Count (140-440) 10*3/uL MPV (9.5-12.2) fL Immature Gran # (0.00-0.04) 10*3/uL ABG pH (7.35-7.45) ABG pCO2 (35-45) mmHg ABG pO2 367 H (83-108) mmHg ABG HCO3 (21-25) mmol/L ABG Total CO2 26 H (19-24) mmol/L ABG O2 Saturation >100.0 H (94-97) % ABG Hematocrit (34.0-46.0) % ABG Sodium (135-146) mmol/L ABG Potassium (3.4-4.5) mmol/L ABG Ionized Calcium (4.5-5.3) mg/dL ABG Glucose (75-99) mg/dL ABG Lactic Acid (0.5-1.6) mmol/L Hemoglobin 6.9 L* (13.0-17.5) gm/dL Sodium 135 L (137-145) mmol/L Creatinine 0.62 L (0.66-1.25) mg/dL Glucose 116 H (74-99) mg/dL POC Glucose (mg/dL) 142 H (70-110) mg/dL Calcium 8.2 L (8.4-10.2) mg/dL Ionized Calcium Rupert 4.4 L (4.5-5.3) mg/dL Total Protein 4.2 L (6.3-8.2) g/dL Albumin 2.6 L (3.5-5.0) g/dL Arterial Blood Potassium (3.4-4.5) mmol/L Arterial Blood Glucose (75-99) mg/dL Crossmatch Assessment and Plan Assessment: Multivessel coronary artery disease. Status postcoronary artery bypass grafting x 3 with a CHOE to the LAD, RAH to the OM, SVG to the PDA with left atrial appendage clipping. Postoperative day #0 Mechanical ventilator management, expected outcome of surgery Acute non-ST elevation myocardial infarction, previous history of ND in 2017 History of previous stent placement to circumflex and LAD in 2017 Benign essential hypertension Lifetime non-smoker Nonspecific pulmonary nodules sub-5 mm Dyslipidemia Benign essential hypertension Plan: The patient was seen and evaluated Chest x-ray, labs and medications reviewed Arterial blood gases reviewed reviewed Decrease FiO2 to 50% Continue bronchodilators Plan for early extubation protocol as tolerated Heparin for DVT prophylaxis Will be reeducated regarding the use of the incentive spirometer Continue full supportive care in the intensive care unit We will continue to follow I have personally seen and examined the patient, performed the documentation and the assessment and plan as written. Number of minutes spent on the visit: 20 Dictation was produced using [employer] dictation software. Please excuse any grammatical, word or spelling errors. Time with Patient: Greater than 30
--- NOTE | 2025-01-24 15:12 | XR ---
EXAMINATION TYPE: XR chest 1V portable DATE OF EXAM: 01/24/2025 2:55 PM COMPARISON: 01/24/2025 CLINICAL INDICATION: Male, 74 years old with history of Post Operative Cardiac Surgery, , FINDINGS: ET tube satisfactory. NG tube side hole just above the GE junction level. Consider further advancemen t by 5 cm. Right IJ [place]-Ava catheter tip at the proximal right main pulmonary artery region. Median sternotomy wires and post-CABG clips. Mediastinal drain and left-sided chest tube in place. No appre ciable pneumothorax. Diffuse interstitial and patchy bilateral opacities retained epicardial pacer leads. Small bilateral pleural effusions. IMPRESSION: 1. Consider advancing the NG tube by 5 cm so that the side hole enters the stomach. 3. Interstitial and patchy bilateral pulmonary edema along with small pleural effusions. [facility], , 01/24/2025 3:09 PM
[2025-01-24 15:14] LABS: Glucose,Whole Blood 125 mg/dL (70-110)
[2025-01-24 15:15] LABS: INR 1.5 (<1.2); Partial Thromboplastin Time 33.3 sec (22.0-30.0); Prothrombin Time 15.7 sec (10.0-12.5)
[2025-01-24] MEDS: INSULIN REGULAR 100 UNIT in SODIUM CHLORIDE 0.9% 100 ML IV SCH (15:17)
[2025-01-24 15:51] LABS: Band Neutrophils % 3 %; Lymphocytes # (M) 1.18 k/uL (1.0-4.8); Monocytes # (M) 0.69 k/uL (0-1.0); Neutrophils # (M) 7.93 k/uL (1.3-7.7); Neutrophils % (M) 78 %; Nucleated Red Blood Cells 0 /100 WBC (0-0); Total Cells Counted 200
[2025-01-24] MEDS: CALCIUM GLUCONATE IN NACL 2 GM in SALINE 1 100ML.BAG IVPB ONE (15:51)
[2025-01-24 15:52] LABS: Anisocytosis (M) Present
[2025-01-24] MEDS: ceFAZolin 2 GM in DEXTROSE 5% IN WATER 50 ML IVPB SCH (15:52)
[2025-01-24] MEDS: HEPARIN SODIUM,PORCINE 5,000 UNIT/ML 1 ML VIAL SQ SCH (15:53)
[2025-01-24] MEDS: IPRATROPIUM-ALBUTEROL 3 ML NEB INHALATION SCH ×2 (16:09→21:13)
[2025-01-24 17:21] LABS: Glucose,Whole Blood 103 mg/dL (70-110)
--- NOTE | 2025-01-24 17:44 | P.PN ---
Subjective Progress Note Date: 01/24/25 01/17/2025 this is 74-year-old gentleman, follows with [facility] with past medical history significant for CAD, MA with stents of the circumflex and LAD, morbid obesity, hypertension, hyperlipidemia and multiple other medical issues brought into the ER via EMS from [facility] yesterday secondary to complaints of chest pain. Patient reports during [facility] he developed midsternal chest pain/tingling, nonradiating accompanied by increased shortness of breath and lightheadedness. Denies nausea, vomiting or diarrhea.denies abdominal pain.Patient responds slowly but appropriate;baseline as per PCP.Does not drive, uses the [facility] [employer] for transportation. Patient was initiated on IV heparin drip related to elevated troponins. EKG reported sinus tachycardia. Troponins 0.090, 3.400. D-dimer WNL, 0.26. Afebrile, normal WBC, hemoglobin 14.6, platelets 255, INR 1. 137, potassium 4 1, bicarb 24, creatinine 0.62, glucose 103, magnesium 1.6. proBNP 1550, TSH 3.740. Viral studies negative. Chest x-ray reported no acute cardiopulmonary disease/process. Currently denies chest pain, palpitations or shortness of breath.Maintaining O2 sats in the high 90s to 100% on room air. 01/18/2025 completed cardiac catheterization yesterday reported severe triple- vessel disease; proximal RCA 70 to 80% stenosis, mid RCA 60% stenosis,Ostium of the PLV 70% and PDA has 50 to 60% stenosis. Circumflex coronary artery 95% ostial stenosis. LAD 80 to 90% stenosis proximally in the ostial portion. LV fu nction/echo pending. Evaluated by cardiothoracic surgery yesterday, felt to be high risk candidate. Brother Arvind at bedside, disclosed that patient had run out of medications, timeframe unknown. Currently denies chest pain, palpitations or shortness of breath. Telemetry sinus rhythm. 01/19/2025 anticoagulated on IV heparin drip. Maintained on beta-trixie, statin and aspirin. Echo results pending. Telemetry sinus rhythm .denies chest pain, palpitations or shortness of breath. Denies lightheadedness dizziness or focal deficits. Incentive spirometer up to 1999. 01/20/2025 Patient evaluated today on the cardiac unit. Sitting up in the chair. No acute complaints. Heparin gtt currently off. Echocardiogram reveals EF 35% with apical, septal and inferior hypokinesis. Trace to mild MR, mild aortic stenosis, mild AR. Patient is being considered for open heart surgery. 01/21/2025 Patient is evaluated today in follow up. He is sitting up in the chair. Having no acute complaints. Remains off IV heparin at this time. He will be going for open heart surgery on Friday. 01/22/2025 Patient is evaluated today in f/u. Patient sitting up in the chair with no acute complaints. Tolerating diet. He is saturating 95% on room air. 01/23/2025 Patient evaluated today in follow up. Reports no acute complaints, denies any chest pressure, chest pain. Denies shortness of breath. Chest xray this morning reveals mild cardiomegaly with new right greater than left acute infiltrates and or edema. He received IV lasix 40 mg dose today. Sodium of 136, potassium 4.1, BUN 16, creatinine 0.70. White blood cell count 7.70, hgb 11.9. Patient is afebrile, heart rate 82, blood pressure 101/59, 95% on 2L of oxygen via nasal cannula. 01/24/2025 Patient going for open heart today and will be moved to the ICU post surgery. Chest xray today reveals mild cardiomegaly, and medium diffuse interstitial opacities which show slight improvement from prior. Review of Systems Constitutional: Denied any fatigue denied any fever. Cardio vascular: denied any chest pain, palpitations Gastrointestinal: denied any nausea, vomiting, diarrhea Pulmonary: Denied any shortness of breath cough Neurologic denied any new focal deficits All inpatient medications were reviewed and appropriate changes in these medications as dictated in the interval history and assessment and plan. PHYSICAL EXAMINATION: GENERAL: The patient is alert and oriented x2-3, not in any acute distress. Well developed, well nourished. HEENT: Pupils are round and equally reacting to light. EOMI. No scleral icterus. No conjunctival pallor. Normocephalic, atraumatic. No pharyngeal erythema. No thyromegaly. CARDIOVASCULAR: S1 and S2 present. No murmurs, rubs, or gallops. PULMONARY: Chest is clear to auscultation, no wheezing or crackles. ABDOMEN: Soft, nontender, nondistended, normoactive bowel sounds. No palpable organomegaly. MUSCULOSKELETAL: No joint swelling or deformity. EXTREMITIES: No cyanosis, clubbing, or pedal edema. NEUROLOGICAL: No focal neurological deficits. SKIN: No rashes. Assessment NSTEMI, status post cardiac catheterization reporting triple-vessel disease CAD with history of MA 2017, stenting of circumflex and LAD, current ran out of his medications-states unclear on timeframe. Last refill RX recorded at [facility] as October 2019. Developmental delay, at baseline per PCP and patient's brother Arvind. Follows with [facility]. Volume overload status post IV lasix Hypertension Hyperlipidemia Morbid obesity, BMI 33 Plan Continue current cardiac medications Monitor electrolytes and renal function Encourage IS Patient will be going for coronary artery bypass grafting today and will be mo nitored in the ICU postoperatively The impression and plan of care has been dictated by Kandy Che, Nurse Practitioner as directed. Dr. Jesus Alberto MD I have performed a history and physical examination and medical decision making of this patient, discussed the same with the dictator, and agree with the dictators assessment and plan as written, documented as a scribe. Based on total visit time, I have performed more than 50% of this visit. Objective - Vital Signs Vital signs: Vital Signs Temp 96.1 F L 01/24/25 17:17 Pulse 90 01/24/25 17:17 Resp 16 01/24/25 17:17 BP 130/53 01/24/25 17:17 Pulse Ox 100 01/24/25 17:17 FiO2 50 01/24/25 16:00 Intake & Output 01/23/25 01/24/25 01/24/25 18:59 06:59 18:59 Intake Total 752 256 3499.087 Output Total 3500 1300 3935 Balance -3260 -1130 -1876.913 Weight 98.9 kg Intake: IV 50 881 Albumin Human 5% 250 ml 500 In Empty Bag 1 bag @ 250 mls/hr IVPB Q1HR PRN Rx#: [id number] CO/CI 150 Pressure 27 Sodium Chloride 0.9% 1, 150 000 ml @ 50 mls/hr IV . Q20H FERNANDA Rx#:[id number] Intake, IV Titration 2.087 Amount Insulin Regular 100 unit 2.087 In Sodium Chloride 0.9% 100 ml @ Per Protocol IV .Q0M FERNANDA Rx#:[id number] Oral 240 120 Blood Product 1175 Ffp 24 Pher Acda Unit 390 [id number] Ffp 24 Pher Acda Cnt2 223 Unit [id number] Platelet Pheresis Pas 252 Psoralen Unit [id number] Rc As-1 Unit 310 [id number] Output: Chest Tube Drainage 765 Left Pleural 330 Mediastinal 270 Right/Mediastinal 165 Urine 2500 1300 670 Emesis 1000 Estimated Blood Loss 2500 Other: Voiding Method External Catheter External Catheter Indwelling Catheter # Voids 1 ABP, PAP, CO, CI - Last Documented Arterial Blood Pressure 122/49 Pulmonary Artery Pressure 31/14 Cardiac Output 4.7 Cardiac Index 2.2 - Labs CBC & Chem 7: 01/24/25 14:24 01/24/25 14:24 Labs: Abnormal Lab Results - Last 24 Hours (Table) 01/23/25 01/24/25 01/24/25 Range/Units 06:56 08:43 09:41 RBC (4.40-5.60) 10*6/uL Hgb (13.0-17.0) g/dL Hct (39.6-50.0) % Plt Count (140-440) 10*3/uL MPV (9.5-12.2) fL Immature Gran # (0.00-0.04) 10*3/uL Neutrophils # (Manual) (1.3-7.7) k/uL PT (10.0-12.5) sec INR (<1.2) APTT (22.0-30.0) sec ABG pH 7.48 H (7.35-7.45) ABG pCO2 30 L (35-45) mmHg ABG pO2 155 H 211 H (83-108) mmHg ABG HCO3 28 H 17 L (21-25) mmol/L ABG Total CO2 26 H 17 L (19-24) mmol/L ABG O2 Saturation 99.1 H 99.1 H (94-97) % ABG Hematocrit 32 L 24 L (34.0-46.0) % ABG Sodium 134 L (135-146) mmol/L ABG Potassium (3.4-4.5) mmol/L ABG Ionized Calcium 8.5 H* (4.5-5.3) mg/dL ABG Glucose 110 H (75-99) mg/dL ABG Lactic Acid 6.3 H* (0.5-1.6) mmol/L Hemoglobin 10.5 L 7.8 L (13.0-17.5) gm/dL Sodium (137-145) mmol/L Creatinine (0.66-1.25) mg/dL Glucose (74-99) mg/dL POC Glucose (mg/dL) (70-110) mg/dL Calcium (8.4-10.2) mg/dL Ionized Calcium Rupert (4.5-5.3) mg/dL Total Protein (6.3-8.2) g/dL Albumin (3.5-5.0) g/dL Arterial Blood Potassium (3.4-4.5) mmol/L Arterial Blood Glucose 110 H (75-99) mg/dL Crossmatch See Detail 01/24/25 01/24/25 01/24/25 Range/Units 10:11 10:51 11:33 RBC (4.40-5.60) 10*6/uL Hgb (13.0-17.0) g/dL Hct (39.6-50.0) % Plt Count (140-440) 10*3/uL MPV (9.5-12.2) fL Immature Gran # (0.00-0.04) 10*3/uL Neutrophils # (Manual) (1.3-7.7) k/uL PT (10.0-12.5) sec INR (<1.2) APTT (22.0-30.0) sec ABG pH 7.28 L (7.35-7.45) ABG pCO2 51 H (35-45) mmHg ABG pO2 >420 H 348 H 295 H (83-108) mmHg ABG HCO3 (21-25) mmol/L ABG Total CO2 (19-24) mmol/L ABG O2 Saturation 99.3 H >99.4 H >99.4 H (94-97) % ABG Hematocrit 26 L 23 L 22 L (34.0-46.0) % ABG Sodium (135-146) mmol/L ABG Potassium 3.1 L 4.7 H (3.4-4.5) mmol/L ABG Ionized Calcium 4.3 L 4.2 L 4.2 L (4.5-5.3) mg/dL ABG Glucose 224 H 189 H 197 H (75-99) mg/dL ABG Lactic Acid 5.7 H* 3.8 H* 3.0 H* (0.5-1.6) mmol/L Hemoglobin 8.6 L 7.5 L 7.1 L (13.0-17.5) gm/dL Sodium (137-145) mmol/L Creatinine (0.66-1.25) mg/dL Glucose (74-99) mg/dL POC Glucose (mg/dL) (70-110) mg/dL Calcium (8.4-10.2) mg/dL Ionized Calcium Rupert (4.5-5.3) mg/dL Total Protein (6.3-8.2) g/dL Albumin (3.5-5.0) g/dL Arterial Blood Potassium 3.1 L 4.7 H (3.4-4.5) mmol/L Arterial Blood Glucose 224 H 189 H 197 H (75-99) mg/dL Crossmatch 01/24/25 01/24/25 01/24/25 Range/Units 12:02 13:14 14:24 RBC 2.23 L (4.40-5.60) 10*6/uL Hgb 7.0 L D (13.0-17.0) g/dL Hct 21.0 L (39.6-50.0) % Plt Count 106 L D (140-440) 10*3/uL MPV 9.4 L (9.5-12.2) fL Immature Gran # 0.08 H (0.00-0.04) 10*3/uL Neutrophils # (Manual) 7.93 H (1.3-7.7) k/uL PT (10.0-12.5) sec INR (<1.2) APTT (22.0-30.0) sec ABG pH 7.31 L (7.35-7.45) ABG pCO2 47 H (35-45) mmHg ABG pO2 260 H 66 L (83-108) mmHg ABG HCO3 (21-25) mmol/L ABG Total CO2 (19-24) mmol/L ABG O2 Saturation 99.2 H 93.3 L (94-97) % ABG Hematocrit 22 L 25 L (34.0-46.0) % ABG Sodium (135-146) mmol/L ABG Potassium 4.7 H (3.4-4.5) mmol/L ABG Ionized Calcium 4.2 L 4.3 L (4.5-5.3) mg/dL ABG Glucose 187 H 163 H (75-99) mg/dL ABG Lactic Acid 3.2 H* 4.1 H* (0.5-1.6) mmol/L Hemoglobin 7.1 L 8.1 L (13.0-17.5) gm/dL Sodium (137-145) mmol/L Creatinine (0.66-1.25) mg/dL Glucose (74-99) mg/dL POC Glucose (mg/dL) (70-110) mg/dL Calcium (8.4-10.2) mg/dL Ionized Calcium Rupert (4.5-5.3) mg/dL Total Protein (6.3-8.2) g/dL Albumin (3.5-5.0) g/dL Arterial Blood Potassium 4.7 H (3.4-4.5) mmol/L Arterial Blood Glucose 187 H 163 H (75-99) mg/dL Crossmatch 01/24/25 01/24/25 01/24/25 Range/Units 14:24 14:24 14:24 RBC (4.40-5.60) 10*6/uL Hgb (13.0-17.0) g/dL Hct (39.6-50.0) % Plt Count (140-440) 10*3/uL MPV (9.5-12.2) fL Immature Gran # (0.00-0.04) 10*3/uL Neutrophils # (Manual) (1.3-7.7) k/uL PT 15.7 H (10.0-12.5) sec INR 1.5 H (<1.2) APTT 33.3 H (22.0-30.0) sec ABG pH (7.35-7.45) ABG pCO2 (35-45) mmHg ABG pO2 (83-108) mmHg ABG HCO3 (21-25) mmol/L ABG Total CO2 (19-24) mmol/L ABG O2 Saturation (94-97) % ABG Hematocrit (34.0-46.0) % ABG Sodium (135-146) mmol/L ABG Potassium (3.4-4.5) mmol/L ABG Ionized Calcium (4.5-5.3) mg/dL ABG Glucose (75-99) mg/dL ABG Lactic Acid (0.5-1.6) mmol/L Hemoglobin (13.0-17.5) gm/dL Sodium 135 L (137-145) mmol/L Creatinine 0.62 L (0.66-1.25) mg/dL Glucose 116 H (74-99) mg/dL POC Glucose (mg/dL) 142 H (70-110) mg/dL Calcium 8.2 L (8.4-10.2) mg/dL Ionized Calcium Rupert 4.4 L (4.5-5.3) mg/dL Total Protein 4.2 L (6.3-8.2) g/dL Albumin 2.6 L (3.5-5.0) g/dL Arterial Blood Potassium (3.4-4.5) mmol/L Arterial Blood Glucose (75-99) mg/dL Crossmatch 01/24/25 01/24/25 Range/Units 14:51 15:13 RBC (4.40-5.60) 10*6/uL Hgb (13.0-17.0) g/dL Hct (39.6-50.0) % Plt Count (140-440) 10*3/uL MPV (9.5-12.2) fL Immature Gran # (0.00-0.04) 10*3/uL Neutrophils # (Manual) (1.3-7.7) k/uL PT (10.0-12.5) sec INR (<1.2) APTT (22.0-30.0) sec ABG pH (7.35-7.45) ABG pCO2 (35-45) mmHg ABG pO2 367 H (83-108) mmHg ABG HCO3 (21-25) mmol/L ABG Total CO2 26 H (19-24) mmol/L ABG O2 Saturation >100.0 H (94-97) % ABG Hematocrit (34.0-46.0) % ABG Sodium (135-146) mmol/L ABG Potassium (3.4-4.5) mmol/L ABG Ionized Calcium (4.5-5.3) mg/dL ABG Glucose (75-99) mg/dL ABG Lactic Acid (0.5-1.6) mmol/L Hemoglobin 6.9 L* (13.0-17.5) gm/dL Sodium (137-145) mmol/L Creatinine (0.66-1.25) mg/dL Glucose (74-99) mg/dL POC Glucose (mg/dL) 125 H (70-110) mg/dL Calcium (8.4-10.2) mg/dL Ionized Calcium Rupert (4.5-5.3) mg/dL Total Protein (6.3-8.2) g/dL Albumin (3.5-5.0) g/dL Arterial Blood Potassium (3.4-4.5) mmol/L Arterial Blood Glucose (75-99) mg/dL Crossmatch Assessment and Plan Time with Patient: Less than 30
[2025-01-24 18:33] LABS: Glucose,Whole Blood 146 mg/dL (70-110)
[2025-01-24 18:35] LABS: ABG HCO3 25 mmol/L (21-25); ABG PCO2 44 mmHg (35-45); ABG PH 7.36 (7.35-7.45); ABG PO2 158 mmHg (83-108); ABG TCO2 26 mmol/L (19-24)
[2025-01-24 18:37] LABS: Allen Test Performed? no
[2025-01-24] MEDS: ACETAMINOPHEN IV (For NPO) 1,000 MG in EMPTY BAG 1 BAG IVPB SCH (18:43)
[2025-01-24 18:53] LABS: HCT 21.9 % (39.6-50.0); HGB 7.4 g/dL (13.0-17.0); Immature Platelet Fraction 3.9 % (1.1-6.1); MCH 31.4 pg (27.0-32.0); MCHC 33.8 g/dL (32.0-37.0); MCV 92.8 fL (80.0-97.0); Platelet Count 102 10*3/uL (140-440); RBC 2.36 10*6/uL (4.40-5.60); RDW 14.6 % (11.5-14.5); WBC 10.04 10*3/uL (4.50-10.00)
[2025-01-24 19:08] LABS: Glucose,Whole Blood 122 mg/dL (70-110)
[2025-01-24 19:52] LABS: Band Neutrophils % 4 %; Neutrophils # (M) 8.63 k/uL (1.3-7.7); Neutrophils % (M) 82 %; Nucleated Red Blood Cells 0 /100 WBC (0-0); Polychromasia Present; Total Cells Counted 100
[2025-01-24 19:53] LABS: Large Platelets Present
[2025-01-24 20:05] LABS: Glucose,Whole Blood 173 mg/dL (70-110)
[2025-01-24 20:45] LABS: HCT 21.9 % (39.6-50.0); HGB 7.5 g/dL (13.0-17.0); Immature Platelet Fraction 4.3 % (1.1-6.1); MCH 31.5 pg (27.0-32.0); MCHC 34.2 g/dL (32.0-37.0); Mean Platelet Volume 10.5 fL (9.5-12.2); Platelet Count 109 10*3/uL (140-440); RBC 2.38 10*6/uL (4.40-5.60); RDW 14.6 % (11.5-14.5); WBC 10.16 10*3/uL (4.50-10.00)
[2025-01-24] MEDS: SENNOSIDES-DOCUSATE SODIUM 1 EACH TAB PO SCH (20:49)
[2025-01-24] MEDS: DEXMEDETOMIDINE/0.9% NACL(PMX) 400 MCG in EMPTY BAG 1 BAG IV SCH (21:16)
[2025-01-24 21:37] LABS: Band Neutrophils % 2 %; Lymphocytes # (M) 0.51 k/uL (1.0-4.8); Neutrophils # (M) 9.44 k/uL (1.3-7.7); Neutrophils % (M) 91 %; Nucleated Red Blood Cells 0 /100 WBC (0-0); Total Cells Counted 100
[2025-01-24 21:38] LABS: Large Platelets Present; Polychromasia Present
[2025-01-24 22:00] LABS: Glucose,Whole Blood 178 mg/dL (70-110)
[2025-01-24 22:02] LABS: ABG Base Excess -0.8 mmol/L; ABG HCO3 24 mmol/L (21-25); ABG Oxygen Saturation >100.0 % (94-97); ABG PCO2 40 mmHg (35-45); ABG PH 7.39 (7.35-7.45); ABG PO2 223 mmHg (83-108); ABG TCO2 25 mmol/L (19-24)
[2025-01-24 22:05] LABS: Allen Test Performed? no
[2025-01-24 23:26] LABS: Glucose,Whole Blood 155 mg/dL (70-110)
[2025-01-25 00:49] LABS: Glucose,Whole Blood 139 mg/dL (70-110)
[2025-01-25] MEDS ORDERED: ACETAMINOPHEN TAB 325 MG TAB PO PRN (01:24)
[2025-01-25] MEDS: VASOPRESSIN 20 UNIT in SODIUM CHLORIDE 0.9% 50 ML IV SCH (01:53)
[2025-01-25 02:03] LABS: Glucose,Whole Blood 144 mg/dL (70-110)
[2025-01-25 03:10] LABS: Glucose,Whole Blood 141 mg/dL (70-110)
[2025-01-25 04:34] LABS: Basophils # (A) 0.02 10*3/uL (0.00-0.10); Basophils % (A) 0.2 %; Lymphocytes # (A) 1.03 10*3/uL (0.90-5.00); Lymphocytes % (A) 11.6 %; MCH 31.7 pg (27.0-32.0); MCHC 34.7 g/dL (32.0-37.0); MCV 91.3 fL (80.0-97.0); Mean Platelet Volume 10.1 fL (9.5-12.2); Monocytes # (A) 0.52 10*3/uL (0.20-1.00); Monocytes % (A) 5.8 %; Neutrophils # (A) 7.31 10*3/uL (1.80-7.70); Neutrophils % (A) 82.1 %; Platelet Count 103 10*3/uL (140-440); RBC 2.18 10*6/uL (4.40-5.60); RDW 14.9 % (11.5-14.5); WBC 8.91 10*3/uL (4.50-10.00)
[2025-01-25 04:36] LABS: HCT 19.9 % (39.6-50.0); HGB 6.9 g/dL (13.0-17.0)
[2025-01-25 04:36] LABS: Glucose,Whole Blood 134 mg/dL (70-110)
[2025-01-25 04:40] LABS: Ionized Calcium 4.5 mg/dL (4.5-5.3)
[2025-01-25 04:48] LABS: ALT 24 U/L (4-49); AST 48 U/L (17-59); African American GFR (CKD) >90 (>60 ml/min/1.73 sqM); Albumin 3.3 g/dL (3.5-5.0); Alkaline Phosphatase 47 U/L (38-126); Anion Gap 9 mmol/L; Blood Urea Nitrogen 16 mg/dL (9-20); Calcium 8.6 mg/dL (8.4-10.2); Carbon Dioxide 24 mmol/L (22-30); Chloride 102 mmol/L (98-107); Glucose 119 mg/dL (74-99); Magnesium 2.1 mg/dL (1.6-2.3); Non-African American GFR(CKD) >90 (>60 ml/min/1.73 sqM); Sodium 135 mmol/L (137-145); Total Bilirubin 1.3 mg/dL (0.2-1.3)
[2025-01-25 06:55] LABS: Glucose,Whole Blood 124 mg/dL (70-110)
--- NOTE | 2025-01-25 07:36 | XR ---
EXAMINATION TYPE: XR chest 1V portable DATE OF EXAM: 01/25/2025 5:22 AM COMPARISON: 01/24/2025 CLINICAL INDICATION: Male, 74 years old with history of Post Operative Cardiac Surgery, , FINDINGS: Median sternotomy wires with post-CABG clips. Retained epicardial pacer leads. Right IJ [place]-Ava cat heter proximal right main pulmonary artery. Mediastinal drain. Left-sided chest tube. No appreciable pneumothorax. Heart borderline enlarged. Diffuse interstitial opacities persist. Small right pleural effusion remains. Some of the previous patchy densities show improvement. Interval extubation and rem oval of NG tube. IMPRESSION: 1. Post-CABG changes with residual interstitial pulmonary edema. Some the previous patchy changes hav e improved. 3. Ongoing small right pleural effusion with adjacent atelectasis and/or consolidation. [facility], , 01/25/2025 7:33 AM
[2025-01-25 08:11] LABS: ABG Base Excess -1.1 mmol/L; ABG HCO3 23 mmol/L (21-25); ABG PCO2 34 mmHg (35-45); ABG PH 7.43 (7.35-7.45); ABG PO2 70 mmHg (83-108); ABG TCO2 24 mmol/L (19-24)
[2025-01-25 08:14] LABS: Allen Test Performed? no
[2025-01-25] MEDS ORDERED: METOPROLOL TARTRATE 12.5 MG TAB PO SCH (09:00)
[2025-01-25] MEDS ORDERED: bisacodyL 10 MG SUPP RECTAL PRN (09:00)
[2025-01-25] MEDS ORDERED: MAGNESIUM HYDROXIDE 2,400 MG/30 ML CUP PO PRN (09:00)
[2025-01-25 09:08] LABS: Glucose,Whole Blood 113 mg/dL (70-110)
--- NOTE | 2025-01-25 09:12 | XR ---
EXAMINATION TYPE: XR chest 1V portable DATE OF EXAM: 01/25/2025 8:56 AM COMPARISON: 01/25/2025 CLINICAL INDICATION: Male, 74 years old with history of new swan/central line, , FINDINGS: Interval replacement now with a left IJ [place]-Ava catheter. Tip in the right main pulmonary artery re gion. Median sternotomy wires and post-CABG clips. Mediastinal drain in place. Question a pericardial drain present. Left-sided chest tube. Heart remains mildly enlarged. Diffuse interstitial opacities persist. Ongoing small right pleural effusion. Asymmetric patchy opacities throughout the right lung also persist. IMPRESSION: 1. Interval exchange now with a left IJ [place]-Ava catheter, tip in a similar location at the expected right main pulmonary artery. 3. Ongoing post-CABG changes with similar interstitial and patchy pulmonary edema. Small right pleura l effusion. [facility], , 01/25/2025 9:10 AM
[2025-01-25 09:21] LABS: ABG Base Excess -0.6 mmol/L; ABG HCO3 24 mmol/L (21-25); ABG Oxygen Saturation 47.7 % (94-97); ABG PCO2 39 mmHg (35-45); ABG TCO2 25 mmol/L (19-24)
[2025-01-25 09:26] LABS: ABG PO2 <30 mmHg (83-108); Allen Test Performed? no
[2025-01-25] MEDS: ACETAMINOPHEN IV (For NPO) 1,000 MG in EMPTY BAG 1 BAG IVPB SCH (09:39)
[2025-01-25] MEDS: PANTOPRAZOLE 40 MG/10 ML VIAL IVP SCH (10:15)
[2025-01-25] MEDS: CLOPIDOGREL 75 MG TAB PO SCH (10:16)
[2025-01-25] MEDS: METOCLOPRAMIDE 5 MG/ML 2 ML VIAL IVP PRN (10:16)
[2025-01-25] MEDS: MILRINONE-D5W PMX 20 MG in DEXTROSE/WATER 1 100ML.BAG IV SCH (10:16)
[2025-01-25] MEDS: ATORVASTATIN 40 MG TAB PO SCH (10:16)
[2025-01-25] MEDS: ASPIRIN 325 MG TAB PO SCH (10:16)
[2025-01-25] MEDS: FUROSEMIDE 10 MG/ML 2 ML VIAL IV ONE (10:23)
[2025-01-25 11:07] LABS: Glucose,Whole Blood 138 mg/dL (70-110)
--- NOTE | 2025-01-25 11:34 | P.PN ---
Subjective Progress Note Date: 01/25/25 This is a 74-year-old white male known history of coronary artery disease, previous stenting of circumflex and LAD, known history of hypertension, dyslipidemia, patient presented to the hospital on 01/16 with chest pain suggestive of acute coronary syndrome. Patient was seen by cardiology and he was felt to have non-ST elevation myocardial infarction started patient initially on heparin aspirin atorvastatin and metoprolol. Patient underwent cardiac catheterization, he was found to have multivessel coronary artery disease, seen by cardiothoracic surgery on consultation, and the plan is to proceed with myocardial revascularization. Workup so far included CT of the chest, it showed no acute thoracic process, it also showed nonspecific pulmonary nodules measuring up to 4 mm, and he was found to have cholelithiasis. Patient states that he is quite active, patient walks on a daily basis, and he never smoked. Denies any cough wheezing shortness of breath. Denies any fever or chills or hemoptysis. Going back to his cardiac catheterization, it showed three-vessel coronary artery disease with 80 to 90% stenosis of the LAD, 95% stenosis to the ostial circumflex coronary artery 70 to 80% stenosis to the ostium of the PLV coronary artery and 50 to 60% to the PDA coronary artery. Seen today on 01/22/2025, patient is now scheduled for myocardial revascularization on Friday. Doing well, asymptomatic, achieving over 1500 cc on incentive spirometry, not in any distress no cough no wheezing no shortness of breath, electrolytes are normal renal profile is normal CBC is normal Patient was seen today on 01/23/2025, patient is resting in bed, does not seem to be in any distress, supposed to undergo myocardial revascularization tomorrow. Patient did develop some component of pulmonary edema as noted on his follow-up chest x-ray, received diuretics/Lasix, and seems to be clinically better. Baseline FEV1 is 61%, The patient is seen today January 24, 2025 in follow-up in the intensive care unit. He is now status post coronary artery bypass grafting with a CHOE to the LAD RHA to the OM, SVG to the PDA and left atrial appendage clipping. Currently on the mechanical ventilator and assist-control mode at a rate of 16, tidal volume 500 and FiO2 100% and a PEEP of 10. Arterial blood gases revealed a PaO2 of 367, [id number] and a pH of 7.38. He is currently on a nitroglycerin drip at 5 mcg/min. 7 5 mcg/kg/min. Norepinephrine at 0.07 mcg/kg/min. Propofol at 20 mcg/kg/min. Normal saline at 50 mL/h. He has a right, left and mediastinal chest tube in place. Cardiac output 4.4. Cardiac index 2.1. PA pressure 26/12. He did receive 2 units of fresh frozen plasma and 1 albumin since his return from the OR. White count 9.8. Hemoglobin 7.0. Platelets 106. Sodium 135. Potassium 4.4. Bicarb 23. BUN 14. Creatinine 0.62. Glucose 116. He is initiated on DuoNeb ventilations. Heparin for DVT prophylaxis. The patient is seen today January 25, 2025 in follow-up in the intensive care unit. He is was extubated last evening at 22:15. Currently maintaining O2 saturations in the high 90s on 6 L high flow nasal cannula. Core temperature 100.6. Slightly tachycardic at 114. Blood pressure 134/51. PA pressure 46/28. CVP 16. Cardiac output 5.6. Cardiac index 2.7. Vasopressin and norepinephrine have been weaned off. He remains on Primacor at 0.1 mcg/kg/min. Insulin drip at 1 unit/h. Normal saline at 50 mL/h. Remains on bronchodilators. Remains on heparin for DVT prophylaxis. He inadvertently pulled out his Sterrett-Ava catheter earlier this morning. This was replaced by anesthesia. Arterial blood gases revealed a PaO2 of 70, PCO2 of 34, pH 7.43. Chest x-ray revealed postoperative changes, mild pulmonary edema. Small right pleural effusion. Right, left and mediastinal chest tubes remain in place. Pacer wires remain in place. Status post 2 units of packed red blood cells, 2 units of fresh frozen plasma, 1 unit of platelets. Lites 103. Sodium 135. Potassium 4.0. Bicarb 24. BUN 16. Creatinine 0.63. Glucose 119. Albumin 3.3. Objective - Vital Signs Vital signs: Vital Signs Temp 100.6 F H 01/25/25 11:00 Pulse 114 H 01/25/25 11:00 Resp 18 01/25/25 11:00 BP 140/51 01/25/25 09:55 Pulse Ox 99 01/25/25 11:00 FiO2 50 01/24/25 21:10 Intake & Output 01/24/25 01/25/25 01/25/25 18:59 06:59 18:59 Intake Total 2137.087 2182.592 1071.027 Output Total 3640 1050 535 Balance -4957.987 6012.592 536.027 Weight 102.1 kg Intake: IV 960 1648 435 ACETAMINOPHEN IV (For NPO 100 100 ) 1,000 mg In Empty Bag 1 bag @ 400 mls/hr IVPB Q6HR FERNANDA Rx#:[id number] Albumin Human 5% 250 ml 500 500 In Empty Bag 1 bag @ 250 mls/hr IVPB Q1HR PRN Rx#: [id number] CO/CI 170 140 80 Pressure 36 108 45 Sodium Chloride 0.9% 1, 200 600 210 000 ml @ 30 mls/hr IV . Q24H FERNANDA Rx#:[id number] ceFAZolin 2 gm In 200 Dextrose 5% in Water 50 ml @ 100 mls/hr IVPB ONCE ONE Rx#:[id number] Intake, IV Titration 2.087 534.592 176.027 Amount Dexmedetomidine/0.9% NaCl 4.244 (Pmx) 400 mcg In Empty Bag 1 bag @ Titrate IV . Q0M FERNANDA Rx#:[id number] Insulin Regular 100 unit 2.087 22.969 0.842 In Sodium Chloride 0.9% 100 ml @ Per Protocol IV .Q0M FERNANDA Rx#:[id number] Milrinone-D5w Pmx 20 mg 12 In Dextrose/Water 1 100ml .bag @ 0.1 MCG/KG/MIN 3. 063 mls/hr IV .Q24H FERNANDA Rx#:[id number] Milrinone-D5w Pmx 20 mg 141.970 In Dextrose/Water 1 100ml .bag @ 0.375 MCG/KG/MIN 11.126 mls/hr IV .Q9H FERNANDA Rx#:[id number] Norepinephrine 4 mg In 307.256 108.585 Sodium Chloride 0.9% 250 ml @ 0.02 MCG/KG/MIN 7. 536 mls/hr IV .Q24H FERNANDA Rx#:[id number] Vasopressin 20 unit In 4.6 Sodium Chloride 0.9% 50 ml @ 0.03 UNITS/MIN 4.59 mls/hr IV .Q11H7M FERNANDA Rx# :[id number] ceFAZolin 2 gm In 50 Dextrose 5% in Water 50 ml @ 100 mls/hr IVPB Q8HR FERNANDA Rx#:[id number] propofoL 1,000 mg In 58.153 Empty Bag 1 bag @ Titrate IV .Q0M FERNANDA Rx#: [id number] Oral 100 Blood Product 1175 310 Ffp 24 Pher Acda Unit 390 [id number] Ffp 24 Pher Acda Cnt2 223 Unit [id number] Platelet Pheresis Pas 252 Psoralen Unit [id number] Rc As-1 Unit 310 [id number] Rc As-1 Unit 310 [id number] Other 50 Rc As-1 Unit 50 [id number] Output: Chest Tube Drainage 470 510 250 Left Pleural 200 280 190 Mediastinal 165 105 20 Right/Mediastinal 105 125 40 Urine 670 540 285 Estimated Blood Loss 2500 Other: Voiding Method Indwelling Catheter Indwelling Catheter ABP, PAP, CO, CI - Last Documented Arterial Blood Pressure 134/51 Pulmonary Artery Pressure 46/28 Cardiac Output 5.6 Cardiac Index 2.7 - Exam GENERAL EXAM: Alert, restless 74-year-old male, on 6 L high flow nasal cannula. HEAD: Normocephalic. EYES: Normal reaction of pupils, equal size. NOSE: Clear with pink turbinates. THROAT: No erythema or exudates. NECK: Left IJ Sterrett-Ava catheter in place. No masses, no JVD. CHEST: Sternal dressing dry and intact. Right, left and mediastinal chest tubes in place. Wires in place. LUNGS: Equal air entry with few scattered rhonchi, crackles in the right lung base. CVS: S1 and S2 normal with no audible murmur, regular rhythm. ABDOMEN: No hepatosplenomegaly, no guarding or rigidity. SPINE: No scoliosis or deformity SKIN: No rashes CENTRAL NERVOUS SYSTEM: Sedated, tone is normal in all 4 extremities. EXTREMITIES: Left upper extremity with Wyatt wrap in place. Right radial arterial line in place. Bilateral lower extremities with Wyatt wraps in place. Peripheral pulses are intact. - Labs CBC & Chem 7: 01/25/25 04:22 01/25/25 04:22 Labs: Abnormal Lab Results - Last 24 Hours (Table) 01/23/25 01/24/2501/24/25 Range/Units 06:56 08:43 09:41 WBC (4.50-10.00) 10*3/uL RBC (4.40-5.60) 10*6/uL Hgb (13.0-17.0) g/dL Hct (39.6-50.0) % Plt Count (140-440) 10*3/uL MPV (9.5-12.2) fL Immature Gran # (0.00-0.04) 10*3/uL Neutrophils # (Manual) (1.3-7.7) k/uL Lymphocytes # (Manual) (1.0-4.8) k/uL Eosinophils # (0.04-0.35) 10*3/uL PT (10.0-12.5) sec INR (<1.2) APTT (22.0-30.0) sec ABG pH 7.48 H (7.35-7.45) ABG pCO2 30 L (35-45) mmHg ABG pO2 155 H 211 H (83-108) mmHg ABG HCO3 28 H 17 L (21-25) mmol/L ABG Total CO2 26 H 17 L (19-24) mmol/L ABG O2 Saturation 99.1 H 99.1 H (94-97) % ABG Hematocrit 32 L 24 L (34.0-46.0) % ABG Sodium 134 L (135-146) mmol/L ABG Potassium (3.4-4.5) mmol/L ABG Ionized Calcium 8.5 H* (4.5-5.3) mg/dL ABG Glucose 110 H (75-99) mg/dL ABG Lactic Acid 6.3 H* (0.5-1.6) mmol/L Hemoglobin 10.5 L 7.8 L (13.0-17.5) gm/dL Sodium (137-145) mmol/L Creatinine (0.66-1.25) mg/dL Glucose (74-99) mg/dL POC Glucose (mg/dL) (70-110) mg/dL Calcium (8.4-10.2) mg/dL Ionized Calcium Rupert (4.5-5.3) mg/dL Total Protein (6.3-8.2) g/dL Albumin (3.5-5.0) g/dL Arterial Blood Potassium (3.4-4.5) mmol/L Arterial Blood Glucose 110 H (75-99) mg/dL Crossmatch See Detail 01/24/25 01/24/25 01/24/25 Range/Units 10:11 10:51 11:33 WBC (4.50-10.00) 10*3/uL RBC (4.40-5.60) 10*6/uL Hgb (13.0-17.0) g/dL Hct (39.6-50.0) % Plt Count (140-440) 10*3/uL MPV (9.5-12.2) fL Immature Gran # (0.00-0.04) 10*3/uL Neutrophils # (Manual) (1.3-7.7) k/uL Lymphocytes # (Manual) (1.0-4.8) k/uL Eosinophils # (0.04-0.35) 10*3/uL PT (10.0-12.5) sec INR (<1.2) APTT (22.0-30.0) sec ABG pH 7.28 L (7.35-7.45) ABG pCO2 51 H (35-45) mmHg ABG pO2 >420 H 348 H 295 H (83-108) mmHg ABG HCO3 (21-25) mmol/L ABG Total CO2 (19-24) mmol/L ABG O2 Saturation 99.3 H >99.4 H >99.4 H (94-97) % ABG Hematocrit 26 L 23 L 22 L (34.0-46.0) % ABG Sodium (135-146) mmol/L ABG Potassium 3.1 L 4.7 H (3.4-4.5) mmol/L ABG Ionized Calcium 4.3 L 4.2 L 4.2 L (4.5-5.3) mg/dL ABG Glucose 224 H 189 H 197 H (75-99) mg/dL ABG Lactic Acid 5.7 H* 3.8 H* 3.0 H* (0.5-1.6) mmol/L Hemoglobin 8.6 L 7.5 L 7.1 L (13.0-17.5) gm/dL Sodium (137-145) mmol/L Creatinine (0.66-1.25) mg/dL Glucose (74-99) mg/dL POC Glucose (mg/dL) (70-110) mg/dL Calcium (8.4-10.2) mg/dL Ionized Calcium Rupert (4.5-5.3) mg/dL Total Protein (6.3-8.2) g/dL Albumin (3.5-5.0) g/dL Arterial Blood Potassium 3.1 L 4.7 H (3.4-4.5) mmol/L Arterial Blood Glucose 224 H 189 H 197 H (75-99) mg/dL Crossmatch 01/24/25 01/24/25 01/24/25 Range/Units 12:02 13:14 14:24 WBC (4.50-10.00) 10*3/uL RBC 2.23 L (4.40-5.60) 10*6/uL Hgb 7.0 L D (13.0-17.0) g/dL Hct 21.0 L (39.6-50.0) % Plt Count 106 L D (140-440) 10*3/uL MPV 9.4 L (9.5-12.2) fL Immature Gran # 0.08 H (0.00-0.04) 10*3/uL Neutrophils # (Manual) 7.93 H (1.3-7.7) k/uL Lymphocytes # (Manual) (1.0-4.8) k/uL Eosinophils # (0.04-0.35) 10*3/uL PT (10.0-12.5) sec INR (<1.2) APTT (22.0-30.0) sec ABG pH 7.31 L (7.35-7.45) ABG pCO2 47 H (35-45) mmHg ABG pO2 260 H 66 L (83-108) mmHg ABG HCO3 (21-25) mmol/L ABG Total CO2 (19-24) mmol/L ABG O2 Saturation 99.2 H 93.3 L (94-97) % ABG Hematocrit 22 L 25 L (34.0-46.0) % ABG Sodium (135-146) mmol/L ABG Potassium 4.7 H (3.4-4.5) mmol/L ABG Ionized Calcium 4.2 L 4.3 L (4.5-5.3) mg/dL ABG Glucose 187 H 163 H (75-99) mg/dL ABG Lactic Acid 3.2 H* 4.1 H* (0.5-1.6) mmol/L Hemoglobin 7.1 L 8.1 L (13.0-17.5) gm/dL Sodium (137-145) mmol/L Creatinine (0.66-1.25) mg/dL Glucose (74-99) mg/dL POC Glucose (mg/dL) (70-110) mg/dL Calcium (8.4-10.2) mg/dL Ionized Calcium Rupert (4.5-5.3) mg/dL Total Protein (6.3-8.2) g/dL Albumin (3.5-5.0) g/dL Arterial Blood Potassium 4.7 H (3.4-4.5) mmol/L Arterial Blood Glucose 187 H 163 H (75-99) mg/dL Crossmatch 01/24/25 01/24/25 01/24/25 Range/Units 14:24 14:24 14:24 WBC (4.50-10.00) 10*3/uL RBC (4.40-5.60) 10*6/uL Hgb (13.0-17.0) g/dL Hct (39.6-50.0) % Plt Count (140-440) 10*3/uL MPV (9.5-12.2) fL Immature Gran # (0.00-0.04) 10*3/uL Neutrophils # (Manual) (1.3-7.7) k/uL Lymphocytes # (Manual) (1.0-4.8) k/uL Eosinophils # (0.04-0.35) 10*3/uL PT 15.7 H (10.0-12.5) sec INR 1.5 H (<1.2) APTT 33.3 H (22.0-30.0) sec ABG pH (7.35-7.45) ABG pCO2 (35-45) mmHg ABG pO2 (83-108) mmHg ABG HCO3 (21-25) mmol/L ABG Total CO2 (19-24) mmol/L ABG O2 Saturation (94-97) % ABG Hematocrit (34.0-46.0) % ABG Sodium (135-146) mmol/L ABG Potassium (3.4-4.5) mmol/L ABG Ionized Calcium (4.5-5.3) mg/dL ABG Glucose (75-99) mg/dL ABG Lactic Acid (0.5-1.6) mmol/L Hemoglobin (13.0-17.5) gm/dL Sodium 135 L (137-145) mmol/L Creatinine 0.62 L (0.66-1.25) mg/dL Glucose 116 H (74-99) mg/dL POC Glucose (mg/dL) 142 H (70-110) mg/dL Calcium 8.2 L (8.4-10.2) mg/dL Ionized Calcium Rupert 4.4 L (4.5-5.3) mg/dL Total Protein 4.2 L (6.3-8.2) g/dL Albumin 2.6 L (3.5-5.0) g/dL Arterial Blood Potassium (3.4-4.5) mmol/L Arterial Blood Glucose (75-99) mg/dL Crossmatch 01/24/25 01/24/25 01/24/25 Range/Units 14:51 15:13 16:21 WBC 10.04 H (4.50-10.00) 10*3/uL RBC 2.36 L (4.40-5.60) 10*6/uL Hgb 7.4 L (13.0-17.0) g/dL Hct 21.9 L (39.6-50.0) % Plt Count 102 L (140-440) 10*3/uL MPV (9.5-12.2) fL Immature Gran # 0.06 H (0.00-0.04) 10*3/uL Neutrophils # (Manual) 8.63 H (1.3-7.7) k/uL Lymphocytes # (Manual) 0.60 L (1.0-4.8) k/uL Eosinophils # (0.04-0.35) 10*3/uL PT (10.0-12.5) sec INR (<1.2) APTT (22.0-30.0) sec ABG pH (7.35-7.45) ABG pCO2 (35-45) mmHg ABG pO2 367 H (83-108) mmHg ABG HCO3 (21-25) mmol/L ABG Total CO2 26 H (19-24) mmol/L ABG O2 Saturation >100.0 H (94-97) % ABG Hematocrit (34.0-46.0) % ABG Sodium (135-146) mmol/L ABG Potassium (3.4-4.5) mmol/L ABG Ionized Calcium (4.5-5.3) mg/dL ABG Glucose (75-99) mg/dL ABG Lactic Acid (0.5-1.6) mmol/L Hemoglobin 6.9 L* (13.0-17.5) gm/dL Sodium (137-145) mmol/L Creatinine (0.66-1.25) mg/dL Glucose (74-99) mg/dL POC Glucose (mg/dL) 125 H (70-110) mg/dL Calcium (8.4-10.2) mg/dL Ionized Calcium Rupert (4.5-5.3) mg/dL Total Protein (6.3-8.2) g/dL Albumin (3.5-5.0) g/dL Arterial Blood Potassium (3.4-4.5) mmol/L Arterial Blood Glucose (75-99) mg/dL Crossmatch 01/24/25 01/24/25 01/24/25 Range/Units 18:31 18:32 19:06 WBC (4.50-10.00) 10*3/uL RBC (4.40-5.60) 10*6/uL Hgb (13.0-17.0) g/dL Hct (39.6-50.0) % Plt Count (140-440) 10*3/uL MPV (9.5-12.2) fL Immature Gran # (0.00-0.04) 10*3/uL Neutrophils # (Manual) (1.3-7.7) k/uL Lymphocytes # (Manual) (1.0-4.8) k/uL Eosinophils # (0.04-0.35) 10*3/uL PT (10.0-12.5) sec INR (<1.2) APTT (22.0-30.0) sec ABG pH (7.35-7.45) ABG pCO2 (35-45) mmHg ABG pO2 158 H (83-108) mmHg ABG HCO3 (21-25) mmol/L ABG Total CO2 26 H (19-24) mmol/L ABG O2 Saturation 100.0 H (94-97) % ABG Hematocrit (34.0-46.0) % ABG Sodium (135-146) mmol/L ABG Potassium (3.4-4.5) mmol/L ABG Ionized Calcium (4.5-5.3) mg/dL ABG Glucose (75-99) mg/dL ABG Lactic Acid (0.5-1.6) mmol/L Hemoglobin 7.6 L (13.0-17.5) gm/dL Sodium (137-145) mmol/L Creatinine (0.66-1.25) mg/dL Glucose (74-99) mg/dL POC Glucose (mg/dL) 146 H 122 H (70-110) mg/dL Calcium (8.4-10.2) mg/dL Ionized Calcium Rupert (4.5-5.3) mg/dL Total Protein (6.3-8.2) g/dL Albumin (3.5-5.0) g/dL Arterial Blood Potassium (3.4-4.5) mmol/L Arterial Blood Glucose (75-99) mg/dL Crossmatch 01/24/25 01/24/25 01/24/25 Range/Units 20:04 20:20 21:59 WBC 10.16 H (4.50-10.00) 10*3/uL RBC 2.38 L (4.40-5.60) 10*6/uL Hgb 7.5 L (13.0-17.0) g/dL Hct 21.9 L (39.6-50.0) % Plt Count 109 L (140-440) 10*3/uL MPV (9.5-12.2) fL Immature Gran # 0.07 H (0.00-0.04) 10*3/uL Neutrophils # (Manual) 9.44 H (1.3-7.7) k/uL Lymphocytes # (Manual) 0.51 L (1.0-4.8) k/uL Eosinophils # (0.04-0.35) 10*3/uL PT (10.0-12.5) sec INR (<1.2) APTT (22.0-30.0) sec ABG pH (7.35-7.45) ABG pCO2 (35-45) mmHg ABG pO2 (83-108) mmHg ABG HCO3 (21-25) mmol/L ABG Total CO2 (19-24) mmol/L ABG O2 Saturation (94-97) % ABG Hematocrit (34.0-46.0) % ABG Sodium (135-146) mmol/L ABG Potassium (3.4-4.5) mmol/L ABG Ionized Calcium (4.5-5.3) mg/dL ABG Glucose (75-99) mg/dL ABG Lactic Acid (0.5-1.6) mmol/L Hemoglobin (13.0-17.5) gm/dL Sodium (137-145) mmol/L Creatinine (0.66-1.25) mg/dL Glucose (74-99) mg/dL POC Glucose (mg/dL) 173 H 178 H (70-110) mg/dL Calcium (8.4-10.2) mg/dL Ionized Calcium Rupert (4.5-5.3) mg/dL Total Protein (6.3-8.2) g/dL Albumin (3.5-5.0) g/dL Arterial Blood Potassium (3.4-4.5) mmol/L Arterial Blood Glucose (75-99) mg/dL Crossmatch 01/24/25 01/24/25 01/25/25 Range/Units 22:00 23:24 00:47 WBC (4.50-10.00) 10*3/uL RBC (4.40-5.60) 10*6/uL Hgb (13.0-17.0) g/dL Hct (39.6-50.0) % Plt Count (140-440) 10*3/uL MPV (9.5-12.2) fL Immature Gran # (0.00-0.04) 10*3/uL Neutrophils # (Manual) (1.3-7.7) k/uL Lymphocytes # (Manual) (1.0-4.8) k/uL Eosinophils # (0.04-0.35) 10*3/uL PT (10.0-12.5) sec INR (<1.2) APTT (22.0-30.0) sec ABG pH (7.35-7.45) ABG pCO2 (35-45) mmHg ABG pO2 223 H (83-108) mmHg ABG HCO3 (21-25) mmol/L ABG Total CO2 25 H (19-24) mmol/L ABG O2 Saturation >100.0 H (94-97) % ABG Hematocrit (34.0-46.0) % ABG Sodium (135-146) mmol/L ABG Potassium (3.4-4.5) mmol/L ABG Ionized Calcium (4.5-5.3) mg/dL ABG Glucose (75-99) mg/dL ABG Lactic Acid (0.5-1.6) mmol/L Hemoglobin 7.7 L (13.0-17.5) gm/dL Sodium (137-145) mmol/L Creatinine (0.66-1.25) mg/dL Glucose (74-99) mg/dL POC Glucose (mg/dL) 155 H 139 H (70-110) mg/dL Calcium (8.4-10.2) mg/dL Ionized Calcium Rupert (4.5-5.3) mg/dL Total Protein (6.3-8.2) g/dL Albumin (3.5-5.0) g/dL Arterial Blood Potassium (3.4-4.5) mmol/L Arterial Blood Glucose (75-99) mg/dL Crossmatch 01/25/25 01/25/25 01/25/25 Range/Units 02:01 03:09 04:22 WBC (4.50-10.00) 10*3/uL RBC 2.18 L (4.40-5.60) 10*6/uL Hgb 6.9 L* (13.0-17.0) g/dL Hct 19.9 L* (39.6-50.0) % Plt Count 103 L (140-440) 10*3/uL MPV (9.5-12.2) fL Immature Gran # (0.00-0.04) 10*3/uL Neutrophils # (Manual) (1.3-7.7) k/uL Lymphocytes # (Manual) (1.0-4.8) k/uL Eosinophils # 0.00 L (0.04-0.35) 10*3/uL PT (10.0-12.5) sec INR (<1.2) APTT (22.0-30.0) sec ABG pH (7.35-7.45) ABG pCO2 (35-45) mmHg ABG pO2 (83-108) mmHg ABG HCO3 (21-25) mmol/L ABG Total CO2 (19-24) mmol/L ABG O2 Saturation (94-97) % ABG Hematocrit (34.0-46.0) % ABG Sodium (135-146) mmol/L ABG Potassium (3.4-4.5) mmol/L ABG Ionized Calcium (4.5-5.3) mg/dL ABG Glucose (75-99) mg/dL ABG Lactic Acid (0.5-1.6) mmol/L Hemoglobin (13.0-17.5) gm/dL Sodium (137-145) mmol/L Creatinine (0.66-1.25) mg/dL Glucose (74-99) mg/dL POC Glucose (mg/dL) 144 H 141 H (70-110) mg/dL Calcium (8.4-10.2) mg/dL Ionized Calcium Rupert (4.5-5.3) mg/dL Total Protein (6.3-8.2) g/dL Albumin (3.5-5.0) g/dL Arterial Blood Potassium (3.4-4.5) mmol/L Arterial Blood Glucose (75-99) mg/dL Crossmatch 01/25/25 01/25/25 01/25/25 Range/Units 04:22 04:23 06:53 WBC (4.50-10.00) 10*3/uL RBC (4.40-5.60) 10*6/uL Hgb (13.0-17.0) g/dL Hct (39.6-50.0) % Plt Count (140-440) 10*3/uL MPV (9.5-12.2) fL Immature Gran # (0.00-0.04) 10*3/uL Neutrophils # (Manual) (1.3-7.7) k/uL Lymphocytes # (Manual) (1.0-4.8) k/uL Eosinophils # (0.04-0.35) 10*3/uL PT (10.0-12.5) sec INR (<1.2) APTT (22.0-30.0) sec ABG pH (7.35-7.45) ABG pCO2 (35-45) mmHg ABG pO2 (83-108) mmHg ABG HCO3 (21-25) mmol/L ABG Total CO2 (19-24) mmol/L ABG O2 Saturation (94-97) % ABG Hematocrit (34.0-46.0) % ABG Sodium (135-146) mmol/L ABG Potassium (3.4-4.5) mmol/L ABG Ionized Calcium (4.5-5.3) mg/dL ABG Glucose (75-99) mg/dL ABG Lactic Acid (0.5-1.6) mmol/L Hemoglobin (13.0-17.5) gm/dL Sodium 135 L (137-145) mmol/L Creatinine 0.63 L (0.66-1.25) mg/dL Glucose 119 H (74-99) mg/dL POC Glucose (mg/dL) 134 H 124 H (70-110) mg/dL Calcium (8.4-10.2) mg/dL Ionized Calcium Rupert (4.5-5.3) mg/dL Total Protein 5.0 L (6.3-8.2) g/dL Albumin 3.3 L (3.5-5.0) g/dL Arterial Blood Potassium (3.4-4.5) mmol/L Arterial Blood Glucose (75-99) mg/dL Crossmatch 01/25/25 01/25/25 01/25/25 Range/Units 08:08 09:06 09:19 WBC (4.50-10.00) 10*3/uL RBC (4.40-5.60) 10*6/uL Hgb (13.0-17.0) g/dL Hct (39.6-50.0) % Plt Count (140-440) 10*3/uL MPV (9.5-12.2) fL Immature Gran # (0.00-0.04) 10*3/uL Neutrophils # (Manual) (1.3-7.7) k/uL Lymphocytes # (Manual) (1.0-4.8) k/uL Eosinophils # (0.04-0.35) 10*3/uL PT (10.0-12.5) sec INR (<1.2) APTT (22.0-30.0) sec ABG pH (7.35-7.45) ABG pCO2 34 L (35-45) mmHg ABG pO2 70 L <30 L* (83-108) mmHg ABG HCO3 (21-25) mmol/L ABG Total CO2 25 H (19-24) mmol/L ABG O2 Saturation 47.7 L (94-97) % ABG Hematocrit (34.0-46.0) % ABG Sodium (135-146) mmol/L ABG Potassium (3.4-4.5) mmol/L ABG Ionized Calcium (4.5-5.3) mg/dL ABG Glucose (75-99) mg/dL ABG Lactic Acid (0.5-1.6) mmol/L Hemoglobin 7.3 L 7.9 L (13.0-17.5) gm/dL Sodium (137-145) mmol/L Creatinine (0.66-1.25) mg/dL Glucose (74-99) mg/dL POC Glucose (mg/dL) 113 H (70-110) mg/dL Calcium (8.4-10.2) mg/dL Ionized Calcium Rupert (4.5-5.3) mg/dL Total Protein (6.3-8.2) g/dL Albumin (3.5-5.0) g/dL Arterial Blood Potassium (3.4-4.5) mmol/L Arterial Blood Glucose (75-99) mg/dL Crossmatch 01/25/25 Range/Units 11:05 WBC (4.50-10.00) 10*3/uL RBC (4.40-5.60) 10*6/uL Hgb (13.0-17.0) g/dL Hct (39.6-50.0) % Plt Count (140-440) 10*3/uL MPV (9.5-12.2) fL Immature Gran # (0.00-0.04) 10*3/uL Neutrophils # (Manual) (1.3-7.7) k/uL Lymphocytes # (Manual) (1.0-4.8) k/uL Eosinophils # (0.04-0.35) 10*3/uL PT (10.0-12.5) sec INR (<1.2) APTT (22.0-30.0) sec ABG pH (7.35-7.45) ABG pCO2 (35-45) mmHg ABG pO2 (83-108) mmHg ABG HCO3 (21-25) mmol/L ABG Total CO2 (19-24) mmol/L ABG O2 Saturation (94-97) % ABG Hematocrit (34.0-46.0) % ABG Sodium (135-146) mmol/L ABG Potassium (3.4-4.5) mmol/L ABG Ionized Calcium (4.5-5.3) mg/dL ABG Glucose (75-99) mg/dL ABG Lactic Acid (0.5-1.6) mmol/L Hemoglobin (13.0-17.5) gm/dL Sodium (137-145) mmol/L Creatinine (0.66-1.25) mg/dL Glucose (74-99) mg/dL POC Glucose (mg/dL) 138 H (70-110) mg/dL Calcium (8.4-10.2) mg/dL Ionized Calcium Rupert (4.5-5.3) mg/dL Total Protein (6.3-8.2) g/dL Albumin (3.5-5.0) g/dL Arterial Blood Potassium (3.4-4.5) mmol/L Arterial Blood Glucose (75-99) mg/dL Crossmatch Assessment and Plan Assessment: Multivessel coronary artery disease. Status postcoronary artery bypass grafting x 3 with a CHOE to the LAD, RAH to the OM, SVG to the PDA with left atrial appendage clipping. Postoperative day #1 Mechanical ventilator management, expected outcome of surgery recovered and on 6 L nasal cannula Acute blood loss anemia, expected outcome of surgery Acute non-ST elevation myocardial infarction, previous history of OR in 2017 History of previous stent placement to circumflex and LAD in 2017 Benign essential hypertension Lifetime non-smoker Nonspecific pulmonary nodules sub-5 mm Dyslipidemia Benign essential hypertension Plan: The patient was seen and evaluated Chest x-ray, labs and medications reviewed Arterial blood gases reviewed reviewed Currently on 6 L high flow nasal cannula Continue bronchodilators Heparin for DVT prophylaxis Continued use of the incentive spirometer Titrate down the FiO2 as tolerated We will continue to follow I have personally seen and examined the patient, performed the documentation and the assessment and plan as written. Number of minutes spent on the visit: 10 Dictation was produced using [employer] dictation software. Please excuse any grammatical, word or spelling errors.
[2025-01-25 12:02] LABS: Glucose,Whole Blood 150 mg/dL (70-110)
[2025-01-25 12:16] LABS: HCT 22.9 % (39.6-50.0); Immature Platelet Fraction 3.7 % (1.1-6.1); MCHC 34.9 g/dL (32.0-37.0); MCV 91.6 fL (80.0-97.0); Mean Platelet Volume 10.5 fL (9.5-12.2); Platelet Count 124 10*3/uL (140-440); RDW 14.7 % (11.5-14.5); WBC 10.99 10*3/uL (4.50-10.00)
--- NOTE | 2025-01-25 12:54 | P.PN ---
Subjective Progress Note Date: 01/25/25 Principal diagnosis: Multivessel coronary artery disease, non-ST elevated myocardial infarction this admission. History of coronary artery disease with myocardial infarction and p revious stent placement to his circumflex coronary artery and left anterior descending coronary artery in August 2017, hypertension, hyperlipidemia, obesity, lifetime non-smoker POD #1 coronary artery bypass graft x 3 with left internal mammary artery to the left anterior descending artery, left radial artery to the obtuse marginal artery, reverse saphenous vein graft to the posterior descending artery, endoscopic vein harvesting of the left greater saphenous vein, endoscopic harvesting of the left radial artery, ligation of the left atrial appendage with a 35 mm AtriClip, epiaortic ultrasound, intraoperative transesophageal echocardiogram, graft flow measurements using the [employer] system Acute blood loss anemia, expected given hemodilution and cardiopulmonary bypass pump Hypotension, somewhat expected due to vasoplegia as well as acute blood loss The patient was seen and examined this morning initially sitting up in recliner in the intensive care unit. He was extubated last night at 22:15. Coming out of the OR patient was on IV Primacor as well as levo. He did get a unit of packed red blood cells yesterday evening as well as FFP and platelets in the OR. During the night he continued to have some hypotension and was also started on vasopressin. This morning the patient was sitting up in recliner, very fidgety. Would follow most commands but was not answering questions, kept stating he was in pain. He did pull out his Antioch/Cordis. He was placed back in bed and Antioch/Cordis was replaced by Dr. Davidson. We did order another unit of packed red blood cells for hemoglobin 6.9. Blood pressure started to respond nicely and patient was weaned off of IV Levophed, remains on IV vasopressin and low-dose Primacor. Continues to be sinus tach in the low 100s. Oxygen saturation in the high 90s on room air, however ABGs revealed PO270 so he was placed on nasal cannula. Mixed venous gas was obtained after placement of [place] with O2 sat 47.7%. Patient with low-grade fever without elevated white blood cell count, likely due to atelectasis as he is not taking deep breaths. Objective - Vital Signs Vital signs: Vital Signs Temp 99.7 F H 01/25/25 08:21 Pulse 116 H 01/25/25 09:07 Resp 22 01/25/25 08:21 BP 123/53 01/25/25 08:21 Pulse Ox 98 01/25/25 08:21 FiO2 50 01/24/25 21:10 Intake & Output 01/24/25 01/25/25 01/25/25 18:59 06:59 18:59 Intake Total 2137.087 2182.592 168.427 Output Total 3640 1050 140 Balance -5837.430 3365.592 28.427 Weight 102.1 kg Intake: IV 960 1648 59 ACETAMINOPHEN IV (For NPO 100 ) 1,000 mg In Empty Bag 1 bag @ 400 mls/hr IVPB Q6HR FERNANDA Rx#:[id number] Albumin Human 5% 250 ml 500 500 In Empty Bag 1 bag @ 250 mls/hr IVPB Q1HR PRN Rx#: [id number] CO/CI 170 140 Pressure 36 108 9 Sodium Chloride 0.9% 1, 200 600 50 000 ml @ 30 mls/hr IV . Q24H FERNANDA Rx#:[id number] ceFAZolin 2 gm In 200 Dextrose 5% in Water 50 ml @ 100 mls/hr IVPB ONCE ONE Rx#:[id number] Intake, IV Titration 2.087 534.592 109.427 Amount Dexmedetomidine/0.9% NaCl 4.244 (Pmx) 400 mcg In Empty Bag 1 bag @ Titrate IV . Q0M FERNANDA Rx#:[id number] Insulin Regular 100 unit 2.087 22.969 0.842 In Sodium Chloride 0.9% 100 ml @ Per Protocol IV .Q0M FERNANDA Rx#:[id number] Milrinone-D5w Pmx 20 mg 141.970 In Dextrose/Water 1 100ml .bag @ 0.375 MCG/KG/MIN 11.126 mls/hr IV .Q9H FERNANDA Rx#:[id number] Norepinephrine 4 mg In 307.256 108.585 Sodium Chloride 0.9% 250 ml @ 0.02 MCG/KG/MIN 7. 536 mls/hr IV .Q24H FERNANDA Rx#:[id number] propofoL 1,000 mg In 58.153 Empty Bag 1 bag @ Titrate IV .Q0M FERNANDA Rx#: [id number] Blood Product 1175 0 Ffp 24 Pher Acda Unit 390 [id number] Ffp 24 Pher Acda Cnt2 223 Unit [id number] Platelet Pheresis Pas 252 Psoralen Unit [id number] Rc As-1 Unit 310 [id number] Rc As-1 Unit 0 [id number] Output: Chest Tube Drainage 470 510 120 Left Pleural 200 280 80 Mediastinal 165 105 20 Right/Mediastinal 105 125 20 Urine 670 540 20 Estimated Blood Loss 2500 Other: Voiding Method Indwelling Catheter Indwelling Catheter ABP, PAP, CO, CI - Last Documented Arterial Blood Pressure 121/44 Pulmonary Artery Pressure 42/16 Cardiac Output 6.2 Cardiac Index 2.9 - Exam CONSTITUTIONAL: Appears somewhat comfortable although very fidgety RESPIRATORY: Lungs sounds diminished bilaterally. Respirations even, nonlabored. Currently on 6 L nasal cannula with oxygen saturation 100%. Strong cough. CARDIOVASCULAR: S1, S2 present. Regular rate and rhythm, sinus tach on telemetry. Sternum stable. Palpable peripheral pulses bilaterally. Generalized edema present. No calf pain or tenderness noted. Heart hugger, antiembolism stockings, SCDs present. GASTROINTESTINAL: Abdomen soft, nontender, nondistended. Hypoactive bowel sounds present 4 quadrants GENITOURINARY: Porter present draining clear, yellow urine. Output overnight 25-40 mL per hour INTEGUMENTARY: Skin is warm and dry. Anterior chest incision well approximated and covered with intact dressing. Left radial artery harvest site as well as left lower extremity EVH site well approximated without redness or drainage. NEUROLOGIC: Cranial nerves II through XII intact MUSKULOSKELETAL: Able to move all extremities, strength equal bilaterally, generalized weakness present PSYCHIATRIC: Alert, not answering questions regarding person/place/time, does follow commands INVASIVE LINES AND TUBES: Mediastinal x2/left chest tubes present and connected to wall suction, no air leaks present. Right most mediastinal tube with 60 mL serosanguineous drainage overnight, 250 mL since surgery. Mediastinal chest tube with 60 mL serosanguineous drainage overnight, 300 mL since surgery. Left pleural chest tube with 100 mL serosanguineous drainage overnight, 600 mL since surgery. A/V epicardial pacemaker wires present, connected to generator, backup rate 50 bpm. Left internal jugular Antioch/Cordis, right radial arterial line present. Last CO/CI 5.6/2.7, PA 41/22, CVP 13. - Allied health notes Allied health notes reviewed: nursing - Labs CBC & Chem 7: 01/25/25 12:00 01/25/25 04:22 Labs: Abnormal Lab Results - Last 24 Hours (Table) 01/23/25 01/24/25 01/24/25 Range/Units 06:56 08:43 09:41 WBC (4.50-10.00) 10*3/uL RBC (4.40-5.60) 10*6/uL Hgb (13.0-17.0) g/dL Hct (39.6-50.0) % Plt Count (140-440) 10*3/uL MPV (9.5-12.2) fL Immature Gran # (0.00-0.04) 10*3/uL Neutrophils # (Manual) (1.3-7.7) k/uL Lymphocytes # (Manual) (1.0-4.8) k/uL Eosinophils # (0.04-0.35) 10*3/uL PT (10.0-12.5) sec INR (<1.2) APTT (22.0-30.0) sec ABG pH 7.48 H (7.35-7.45) ABG pCO2 30 L (35-45) mmHg ABG pO2 155 H 211 H (83-108) mmHg ABG HCO3 28 H 17 L (21-25) mmol/L ABG Total CO2 26 H 17 L (19-24) mmol/L ABG O2 Saturation 99.1 H 99.1 H (94-97) % ABG Hematocrit 32 L 24 L (34.0-46.0) % ABG Sodium 134 L (135-146) mmol/L ABG Potassium (3.4-4.5) mmol/L ABG Ionized Calcium 8.5 H* (4.5-5.3) mg/dL ABG Glucose 110 H (75-99) mg/dL ABG Lactic Acid 6.3 H* (0.5-1.6) mmol/L Hemoglobin 10.5 L 7.8 L (13.0-17.5) gm/dL Sodium (137-145) mmol/L Creatinine (0.66-1.25) mg/dL Glucose (74-99) mg/dL POC Glucose (mg/dL) (70-110) mg/dL Calcium (8.4-10.2) mg/dL Ionized Calcium Rupert (4.5-5.3) mg/dL Total Protein (6.3-8.2) g/dL Albumin (3.5-5.0) g/dL Arterial Blood Potassium (3.4-4.5) mmol/L Arterial Blood Glucose 110 H (75-99) mg/dL Crossmatch See Detail 01/24/25 01/24/25 01/24/25 Range/Units 10:11 10:51 11:33 WBC (4.50-10.00) 10*3/uL RBC (4.40-5.60) 10*6/uL Hgb (13.0-17.0) g/dL Hct (39.6-50.0) % Plt Count (140-440) 10*3/uL MPV (9.5-12.2) fL Immature Gran # (0.00-0.04) 10*3/uL Neutrophils # (Manual) (1.3-7.7) k/uL Lymphocytes # (Manual) (1.0-4.8) k/uL Eosinophils # (0.04-0.35) 10*3/uL PT (10.0-12.5) sec INR (<1.2) APTT (22.0-30.0) sec ABG pH 7.28 L (7.35-7.45) ABG pCO2 51 H (35-45) mmHg ABG pO2 >420 H 348 H 295 H (83-108) mmHg ABG HCO3 (21-25) mmol/L ABG Total CO2 (19-24) mmol/L ABG O2 Saturation 99.3 H >99.4 H >99.4 H (94-97) % ABG Hematocrit 26 L 23 L 22 L (34.0-46.0) % ABG Sodium (135-146) mmol/L ABG Potassium 3.1 L 4.7 H (3.4-4.5) mmol/L ABG Ionized Calcium 4.3 L 4.2 L 4.2 L (4.5-5.3) mg/dL ABG Glucose 224 H 189 H 197 H (75-99) mg/dL ABG Lactic Acid 5.7 H* 3.8 H* 3.0 H* (0.5-1.6) mmol/L Hemoglobin 8.6 L 7.5 L 7.1 L (13.0-17.5) gm/dL Sodium (137-145) mmol/L Creatinine (0.66-1.25) mg/dL Glucose (74-99) mg/dL POC Glucose (mg/dL) (70-110) mg/dL Calcium (8.4-10.2) mg/dL Ionized Calcium Rupert (4.5-5.3) mg/dL Total Protein (6.3-8.2) g/dL Albumin (3.5-5.0) g/dL Arterial Blood Potassium 3.1 L 4.7 H (3.4-4.5) mmol/L Arterial Blood Glucose 224 H 189 H 197 H (75-99) mg/dL Crossmatch 01/24/25 01/24/25 01/24/25 Range/Units 12:02 13:14 14:24 WBC (4.50-10.00) 10*3/uL RBC 2.23 L (4.40-5.60) 10*6/uL Hgb 7.0 L D (13.0-17.0) g/dL Hct 21.0 L (39.6-50.0) % Plt Count 106 L D (140-440) 10*3/uL MPV 9.4 L (9.5-12.2) fL Immature Gran # 0.08 H (0.00-0.04) 10*3/uL Neutrophils # (Manual) 7.93 H (1.3-7.7) k/uL Lymphocytes # (Manual) (1.0-4.8) k/uL Eosinophils # (0.04-0.35) 10*3/uL PT (10.0-12.5) sec INR (<1.2) APTT (22.0-30.0) sec ABG pH 7.31 L (7.35-7.45) ABG pCO2 47 H (35-45) mmHg ABG pO2 260 H 66 L (83-108) mmHg ABG HCO3 (21-25) mmol/L ABG Total CO2 (19-24) mmol/L ABG O2 Saturation 99.2 H 93.3 L (94-97) % ABG Hematocrit 22 L 25 L (34.0-46.0) % ABG Sodium (135-146) mmol/L ABG Potassium 4.7 H (3.4-4.5) mmol/L ABG Ionized Calcium 4.2 L 4.3 L (4.5-5.3) mg/dL ABG Glucose 187 H 163 H (75-99) mg/dL ABG Lactic Acid 3.2 H* 4.1 H* (0.5-1.6) mmol/L Hemoglobin 7.1 L 8.1 L (13.0-17.5) gm/dL Sodium (137-145) mmol/L Creatinine (0.66-1.25) mg/dL Glucose (74-99) mg/dL POC Glucose (mg/dL) (70-110) mg/dL Calcium (8.4-10.2) mg/dL Ionized Calcium Rupert (4.5-5.3) mg/dL Total Protein (6.3-8.2) g/dL Albumin (3.5-5.0) g/dL Arterial Blood Potassium 4.7 H (3.4-4.5) mmol/L Arterial Blood Glucose 187 H 163 H (75-99) mg/dL Crossmatch 01/24/25 01/24/25 01/24/25 Range/Units 14:24 14:24 14:24 WBC (4.50-10.00) 10*3/uL RBC (4.40-5.60) 10*6/uL Hgb (13.0-17.0) g/dL Hct (39.6-50.0) % Plt Count (140-440) 10*3/uL MPV (9.5-12.2) fL Immature Gran # (0.00-0.04) 10*3/uL Neutrophils # (Manual) (1.3-7.7) k/uL Lymphocytes # (Manual) (1.0-4.8) k/uL Eosinophils # (0.04-0.35) 10*3/uL PT 15.7 H (10.0-12.5) sec INR 1.5 H (<1.2) APTT 33.3 H (22.0-30.0) sec ABG pH (7.35-7.45) ABG pCO2 (35-45) mmHg ABG pO2 (83-108) mmHg ABG HCO3 (21-25) mmol/L ABG Total CO2 (19-24) mmol/L ABG O2 Saturation (94-97) % ABG Hematocrit (34.0-46.0) % ABG Sodium (135-146) mmol/L ABG Potassium (3.4-4.5) mmol/L ABG Ionized Calcium (4.5-5.3) mg/dL ABG Glucose (75-99) mg/dL ABG Lactic Acid (0.5-1.6) mmol/L Hemoglobin (13.0-17.5) gm/dL Sodium 135 L (137-145) mmol/L Creatinine 0.62 L (0.66-1.25) mg/dL Glucose 116 H (74-99) mg/dL POC Glucose (mg/dL) 142 H (70-110) mg/dL Calcium 8.2 L (8.4-10.2) mg/dL Ionized Calcium Rupert 4.4 L (4.5-5.3) mg/dL Total Protein 4.2 L (6.3-8.2) g/dL Albumin 2.6 L (3.5-5.0) g/dL Arterial Blood Potassium (3.4-4.5) mmol/L Arterial Blood Glucose (75-99) mg/dL Crossmatch 01/24/25 01/24/25 01/24/25 Range/Units 14:51 15:13 16:21 WBC 10.04 H (4.50-10.00) 10*3/uL RBC 2.36 L (4.40-5.60) 10*6/uL Hgb 7.4 L (13.0-17.0) g/dL Hct 21.9 L (39.6-50.0) % Plt Count 102 L (140-440) 10*3/uL MPV (9.5-12.2) fL Immature Gran # 0.06 H (0.00-0.04) 10*3/uL Neutrophils # (Manual) 8.63 H (1.3-7.7) k/uL Lymphocytes # (Manual) 0.60 L (1.0-4.8) k/uL Eosinophils # (0.04-0.35) 10*3/uL PT (10.0-12.5) sec INR (<1.2) APTT (22.0-30.0) sec ABG pH (7.35-7.45) ABG pCO2 (35-45) mmHg ABG pO2 367 H (83-108) mmHg ABG HCO3 (21-25) mmol/L ABG Total CO2 26 H (19-24) mmol/L ABG O2 Saturation >100.0 H (94-97) % ABG Hematocrit (34.0-46.0) % ABG Sodium (135-146) mmol/L ABG Potassium (3.4-4.5) mmol/L ABG Ionized Calcium (4.5-5.3) mg/dL ABG Glucose (75-99) mg/dL ABG Lactic Acid (0.5-1.6) mmol/L Hemoglobin 6.9 L* (13.0-17.5) gm/dL Sodium (137-145) mmol/L Creatinine (0.66-1.25) mg/dL Glucose (74-99) mg/dL POC Glucose (mg/dL) 125 H (70-110) mg/dL Calcium (8.4-10.2) mg/dL Ionized Calcium Rupert (4.5-5.3) mg/dL Total Protein (6.3-8.2) g/dL Albumin (3.5-5.0) g/dL Arterial Blood Potassium (3.4-4.5) mmol/L Arterial Blood Glucose (75-99) mg/dL Crossmatch 01/24/25 01/24/25 01/24/25 Range/Units 18:31 18:32 19:06 WBC (4.50-10.00) 10*3/uL RBC (4.40-5.60) 10*6/uL Hgb (13.0-17.0) g/dL Hct (39.6-50.0) % Plt Count (140-440) 10*3/uL MPV (9.5-12.2) fL Immature Gran # (0.00-0.04) 10*3/uL Neutrophils # (Manual) (1.3-7.7) k/uL Lymphocytes # (Manual) (1.0-4.8) k/uL Eosinophils # (0.04-0.35) 10*3/uL PT (10.0-12.5) sec INR (<1.2) APTT (22.0-30.0) sec ABG pH (7.35-7.45) ABG pCO2 (35-45) mmHg ABG pO2 158 H (83-108) mmHg ABG HCO3 (21-25) mmol/L ABG Total CO2 26 H (19-24) mmol/L ABG O2 Saturation 100.0 H (94-97) % ABG Hematocrit (34.0-46.0) % ABG Sodium (135-146) mmol/L ABG Potassium (3.4-4.5) mmol/L ABG Ionized Calcium (4.5-5.3) mg/dL ABG Glucose (75-99) mg/dL ABG Lactic Acid (0.5-1.6) mmol/L Hemoglobin 7.6 L (13.0-17.5) gm/dL Sodium (137-145) mmol/L Creatinine (0.66-1.25) mg/dL Glucose (74-99) mg/dL POC Glucose (mg/dL) 146 H 122 H (70-110) mg/dL Calcium (8.4-10.2) mg/dL Ionized Calcium Rupert (4.5-5.3) mg/dL Total Protein (6.3-8.2) g/dL Albumin (3.5-5.0) g/dL Arterial Blood Potassium (3.4-4.5) mmol/L Arterial Blood Glucose (75-99) mg/dL Crossmatch 01/24/25 01/24/25 01/24/25 Range/Units 20:04 20:20 21:59 WBC 10.16 H (4.50-10.00) 10*3/uL RBC 2.38 L (4.40-5.60) 10*6/uL Hgb 7.5 L (13.0-17.0) g/dL Hct 21.9 L (39.6-50.0) % Plt Count 109 L (140-440) 10*3/uL MPV (9.5-12.2) fL Immature Gran # 0.07 H (0.00-0.04) 10*3/uL Neutrophils # (Manual) 9.44 H (1.3-7.7) k/uL Lymphocytes # (Manual) 0.51 L (1.0-4.8) k/uL Eosinophils # (0.04-0.35) 10*3/uL PT (10.0-12.5) sec INR (<1.2) APTT (22.0-30.0) sec ABG pH (7.35-7.45) ABG pCO2 (35-45) mmHg ABG pO2 (83-108) mmHg ABG HCO3 (21-25) mmol/L ABG Total CO2 (19-24) mmol/L ABG O2 Saturation (94-97) % ABG Hematocrit (34.0-46.0) % ABG Sodium (135-146) mmol/L ABG Potassium (3.4-4.5) mmol/L ABG Ionized Calcium (4.5-5.3) mg/dL ABG Glucose (75-99) mg/dL ABG Lactic Acid (0.5-1.6) mmol/L Hemoglobin (13.0-17.5) gm/dL Sodium (137-145) mmol/L Creatinine (0.66-1.25) mg/dL Glucose (74-99) mg/dL POC Glucose (mg/dL) 173 H 178 H (70-110) mg/dL Calcium (8.4-10.2) mg/dL Ionized Calcium Rupert (4.5-5.3) mg/dL Total Protein (6.3-8.2) g/dL Albumin (3.5-5.0) g/dL Arterial Blood Potassium (3.4-4.5) mmol/L Arterial Blood Glucose (75-99) mg/dL Crossmatch 01/24/25 01/24/25 01/25/25 Range/Units 22:00 23:24 00:47 WBC (4.50-10.00) 10*3/uL RBC (4.40-5.60) 10*6/uL Hgb (13.0-17.0) g/dL Hct (39.6-50.0) % Plt Count (140-440) 10*3/uL MPV (9.5-12.2) fL Immature Gran # (0.00-0.04) 10*3/uL Neutrophils # (Manual) (1.3-7.7) k/uL Lymphocytes # (Manual) (1.0-4.8) k/uL Eosinophils # (0.04-0.35) 10*3/uL PT (10.0-12.5) sec INR (<1.2) APTT (22.0-30.0) sec ABG pH (7.35-7.45) ABG pCO2 (35-45) mmHg ABG pO2 223 H (83-108) mmHg ABG HCO3 (21-25) mmol/L ABG Total CO2 25 H (19-24) mmol/L ABG O2 Saturation >100.0 H (94-97) % ABG Hematocrit (34.0-46.0) % ABG Sodium (135-146) mmol/L ABG Potassium (3.4-4.5) mmol/L ABG Ionized Calcium (4.5-5.3) mg/dL ABG Glucose (75-99) mg/dL ABG Lactic Acid (0.5-1.6) mmol/L Hemoglobin 7.7 L (13.0-17.5) gm/dL Sodium (137-145) mmol/L Creatinine (0.66-1.25) mg/dL Glucose (74-99) mg/dL POC Glucose (mg/dL) 155 H 139 H (70-110) mg/dL Calcium (8.4-10.2) mg/dL Ionized Calcium Rupert (4.5-5.3) mg/dL Total Protein (6.3-8.2) g/dL Albumin (3.5-5.0) g/dL Arterial Blood Potassium (3.4-4.5) mmol/L Arterial Blood Glucose (75-99) mg/dL Crossmatch 01/25/25 01/25/25 01/25/25 Range/Units 02:01 03:09 04:22 WBC (4.50-10.00) 10*3/uL RBC 2.18 L (4.40-5.60) 10*6/uL Hgb 6.9 L* (13.0-17.0) g/dL Hct 19.9 L* (39.6-50.0) % Plt Count 103 L (140-440) 10*3/uL MPV (9.5-12.2) fL Immature Gran # (0.00-0.04) 10*3/uL Neutrophils # (Manual) (1.3-7.7) k/uL Lymphocytes # (Manual) (1.0-4.8) k/uL Eosinophils # 0.00 L (0.04-0.35) 10*3/uL PT (10.0-12.5) sec INR (<1.2) APTT (22.0-30.0) sec ABG pH (7.35-7.45) ABG pCO2 (35-45) mmHg ABG pO2 (83-108) mmHg ABG HCO3 (21-25) mmol/L ABG Total CO2 (19-24) mmol/L ABG O2 Saturation (94-97) % ABG Hematocrit (34.0-46.0) % ABG Sodium (135-146) mmol/L ABG Potassium (3.4-4.5) mmol/L ABG Ionized Calcium (4.5-5.3) mg/dL ABG Glucose (75-99) mg/dL ABG Lactic Acid (0.5-1.6) mmol/L Hemoglobin (13.0-17.5) gm/dL Sodium (137-145) mmol/L Creatinine (0.66-1.25) mg/dL Glucose (74-99) mg/dL POC Glucose (mg/dL) 144 H 141 H (70-110) mg/dL Calcium (8.4-10.2) mg/dL Ionized Calcium Rupert (4.5-5.3) mg/dL Total Protein (6.3-8.2) g/dL Albumin (3.5-5.0) g/dL Arterial Blood Potassium (3.4-4.5) mmol/L Arterial Blood Glucose (75-99) mg/dL Crossmatch 01/25/25 01/25/25 01/25/25 Range/Units 04:22 04:23 06:53 WBC (4.50-10.00) 10*3/uL RBC (4.40-5.60) 10*6/uL Hgb (13.0-17.0) g/dL Hct (39.6-50.0) % Plt Count (140-440) 10*3/uL MPV (9.5-12.2) fL Immature Gran # (0.00-0.04) 10*3/uL Neutrophils # (Manual) (1.3-7.7) k/uL Lymphocytes # (Manual) (1.0-4.8) k/uL Eosinophils # (0.04-0.35) 10*3/uL PT (10.0-12.5) sec INR (<1.2) APTT (22.0-30.0) sec ABG pH (7.35-7.45) ABG pCO2 (35-45) mmHg ABG pO2 (83-108) mmHg ABG HCO3 (21-25) mmol/L ABG Total CO2 (19-24) mmol/L ABG O2 Saturation (94-97) % ABG Hematocrit (34.0-46.0) % ABG Sodium (135-146) mmol/L ABG Potassium (3.4-4.5) mmol/L ABG Ionized Calcium (4.5-5.3) mg/dL ABG Glucose (75-99) mg/dL ABG Lactic Acid (0.5-1.6) mmol/L Hemoglobin (13.0-17.5) gm/dL Sodium 135 L (137-145) mmol/L Creatinine 0.63 L (0.66-1.25) mg/dL Glucose 119 H (74-99) mg/dL POC Glucose (mg/dL) 134 H 124 H (70-110) mg/dL Calcium (8.4-10.2) mg/dL Ionized Calcium Rupert (4.5-5.3) mg/dL Total Protein 5.0 L (6.3-8.2) g/dL Albumin 3.3 L (3.5-5.0) g/dL Arterial Blood Potassium (3.4-4.5) mmol/L Arterial Blood Glucose (75-99) mg/dL Crossmatch 01/25/25 01/25/25 01/25/25 Range/Units 08:08 09:06 09:19 WBC (4.50-10.00) 10*3/uL RBC (4.40-5.60) 10*6/uL Hgb (13.0-17.0) g/dL Hct (39.6-50.0) % Plt Count (140-440) 10*3/uL MPV (9.5-12.2) fL Immature Gran # (0.00-0.04) 10*3/uL Neutrophils # (Manual) (1.3-7.7) k/uL Lymphocytes # (Manual) (1.0-4.8) k/uL Eosinophils # (0.04-0.35) 10*3/uL PT (10.0-12.5) sec INR (<1.2) APTT (22.0-30.0) sec ABG pH (7.35-7.45) ABG pCO2 34 L (35-45) mmHg ABG pO2 70 L <30 L* (83-108) mmHg ABG HCO3 (21-25) mmol/L ABG Total CO2 25 H (19-24) mmol/L ABG O2 Saturation 47.7 L (94-97) % ABG Hematocrit (34.0-46.0) % ABG Sodium (135-146) mmol/L ABG Potassium (3.4-4.5) mmol/L ABG Ionized Calcium (4.5-5.3) mg/dL ABG Glucose (75-99) mg/dL ABG Lactic Acid (0.5-1.6) mmol/L Hemoglobin 7.3 L 7.9 L (13.0-17.5) gm/dL Sodium (137-145) mmol/L Creatinine (0.66-1.25) mg/dL Glucose (74-99) mg/dL POC Glucose (mg/dL) 113 H (70-110) mg/dL Calcium (8.4-10.2) mg/dL Ionized Calcium Rupert (4.5-5.3) mg/dL Total Protein (6.3-8.2) g/dL Albumin (3.5-5.0) g/dL Arterial Blood Potassium (3.4-4.5) mmol/L Arterial Blood Glucose (75-99) mg/dL Crossmatch - Imaging and Cardiology Chest x-ray: report reviewed, image reviewed Assessment and Plan Assessment: Multivessel coronary artery disease, non-ST elevated myocardial infarction this admission status post three-vessel CABG Acute blood loss anemia, expected given hemodilution and cardiopulmonary bypass pump Hypotension, somewhat expected due to vasoplegia as well as acute blood loss History of coronary artery disease with myocardial infarction and previous stent placement to Cx and LAD in August 2017 Hypertension Hyperlipidemia, cholesterol 174, LDL 100.8, triglycerides 139 Obesity Lifetime non-smoker Developmental delay Plan: Continue to maximize medical therapy with aspirin, statin, Plavix. Will hold beta-trixie for now Wean pressors as able Continue low-dose Primacor Wean oxygen as tolerated. Encourage incentive spirometry use. Bronchodilators per pulmonology Will monitor daily labs and x-rays. Electrolyte replacement per protocol. Patient transfused second unit of packed red blood cells today to follow with 20 mg IV push Lasix Increase activity as tolerated. PT/OT/cardiac rehab consulted One-to-one sitter ordered for patient's safety, reorient as needed GI/DVT prophylaxis Continue Cordis/[place] for another 24 hours Continue Porter catheter for another 24 hours, continue to monitor strict accurate intake and output Continue chest tubes for another 24 hours, monitor and record output Insulin management per internal medicine. Patient is not diabetic, preoperative hemoglobin A1c 5.4%. Patient should remain on continuous IV insulin for 48 hours, then may transition to subcutaneous per protocol Pain control per current medication regimen. IV Tylenol ordered every 6 hours x 4 doses, no narcotics More recommendations to follow
[2025-01-25 13:19] LABS: Glucose,Whole Blood 140 mg/dL (70-110)
[2025-01-25 13:27] VITALS: BMI 34.2
[2025-01-25 14:53] LABS: Glucose,Whole Blood 123 mg/dL (70-110)
[2025-01-25 15:04] LABS: ABG Base Excess 1.4 mmol/L; ABG HCO3 26 mmol/L (21-25); ABG Oxygen Saturation 58.4 % (94-97); ABG PCO2 41 mmHg (35-45); ABG PH 7.42 (7.35-7.45); ABG TCO2 27 mmol/L (19-24)
[2025-01-25 15:15] LABS: ABG PO2 <30 mmHg (83-108); Allen Test Performed? no
[2025-01-25 16:15] LABS: Glucose,Whole Blood 119 mg/dL (70-110)
[2025-01-25 17:53] LABS: Glucose,Whole Blood 123 mg/dL (70-110)
[2025-01-25 20:00] LABS: Glucose,Whole Blood 121 mg/dL (70-110)
[2025-01-25 23:07] LABS: Glucose,Whole Blood 114 mg/dL (70-110)
[2025-01-26 00:33] LABS: Glucose,Whole Blood 125 mg/dL (70-110)
[2025-01-26 01:52] LABS: Glucose,Whole Blood 122 mg/dL (70-110)
[2025-01-26 05:19] LABS: Glucose,Whole Blood 125 mg/dL (70-110)
[2025-01-26 05:32] LABS: Basophils # (A) 0.03 10*3/uL (0.00-0.10); Basophils % (A) 0.2 %; HGB 8.2 g/dL (13.0-17.0); Lymphocytes # (A) 1.51 10*3/uL (0.90-5.00); Lymphocytes % (A) 10.7 %; MCH 31.8 pg (27.0-32.0); MCHC 34.2 g/dL (32.0-37.0); Mean Platelet Volume 10.5 fL (9.5-12.2); Monocytes # (A) 0.82 10*3/uL (0.20-1.00); Monocytes % (A) 5.8 %; Neutrophils % (A) 82.8 %; Platelet Count 145 10*3/uL (140-440); RBC 2.58 10*6/uL (4.40-5.60); RDW 15.1 % (11.5-14.5); WBC 14.13 10*3/uL (4.50-10.00)
[2025-01-26 05:43] LABS: Ionized Calcium 4.6 mg/dL (4.5-5.3)
[2025-01-26 05:57] LABS: ALT 35 U/L (4-49); AST 62 U/L (17-59); African American GFR (CKD) >90 (>60 ml/min/1.73 sqM); Albumin 3.4 g/dL (3.5-5.0); Alkaline Phosphatase 59 U/L (38-126); Anion Gap 12 mmol/L; Blood Urea Nitrogen 19 mg/dL (9-20); Carbon Dioxide 21 mmol/L (22-30); Chloride 101 mmol/L (98-107); Glucose 114 mg/dL (74-99); Non-African American GFR(CKD) >90 (>60 ml/min/1.73 sqM); Potassium 4.1 mmol/L (3.5-5.1); Sodium 134 mmol/L (137-145); Total Bilirubin 1.7 mg/dL (0.2-1.3); Total Protein 5.4 g/dL (6.3-8.2)
--- NOTE | 2025-01-26 05:58 | P.PN ---
Subjective Progress Note Date: 01/25/25 01/17/2025 this is 74-year-old gentleman, follows with [facility] with past medical history significant for CAD, SC with stents of the circumflex and LAD, morbid obesity, hypertension, hyperlipidemia and multiple other medical issues brought into the ER via EMS from [facility] yesterday secondary to complaints of chest pain. Patient reports during [facility] he developed midsternal chest pain/tingling, nonradiating accompanied by increased shortness of breath and lightheadedness. Denies nausea, vomiting or diarrhea.denies abdominal pain.Patient responds slowly but appropriate;baseline as per PCP.Does not drive, uses the [facility] [employer] for transportation. Patient was initiated on IV heparin drip related to elevated troponins. EKG reported sinus tachycardia. Troponins 0.090, 3.400. D-dimer WNL, 0.26. Afebrile, normal WBC, hemoglobin 14.6, platelets 255, INR 1. 137, potassium 4 1, bicarb 24, creatinine 0.62, glucose 103, magnesium 1.6. proBNP 1550, TSH 3.740. Viral studies negative. Chest x-ray reported no acute cardiopulmonary disease/process. Currently denies chest pain, palpitations or shortness of breath.Maintaining O2 sats in the high 90s to 100% on room air. 01/18/2025 completed cardiac catheterization yesterday reported severe triple- vessel disease; proximal RCA 70 to 80% stenosis, mid RCA 60% stenosis,Ostium of the PLV 70% and PDA has 50 to 60% stenosis. Circumflex coronary artery 95% ostial stenosis. LAD 80 to 90% stenosis proximally in the ostial portion. LV fu nction/echo pending. Evaluated by cardiothoracic surgery yesterday, felt to be high risk candidate. Brother Arvind at bedside, disclosed that patient had run out of medications, timeframe unknown. Currently denies chest pain, palpitations or shortness of breath. Telemetry sinus rhythm. 01/19/2025 anticoagulated on IV heparin drip. Maintained on beta-trixie, statin and aspirin. Echo results pending. Telemetry sinus rhythm .denies chest pain, palpitations or shortness of breath. Denies lightheadedness dizziness or focal deficits. Incentive spirometer up to 1999. 01/20/2025 Patient evaluated today on the cardiac unit. Sitting up in the chair. No acute complaints. Heparin gtt currently off. Echocardiogram reveals EF 35% with apical, septal and inferior hypokinesis. Trace to mild MR, mild aortic stenosis, mild AR. Patient is being considered for open heart surgery. 01/21/2025 Patient is evaluated today in follow up. He is sitting up in the chair. Having no acute complaints. Remains off IV heparin at this time. He will be going for open heart surgery on Friday. 01/22/2025 Patient is evaluated today in f/u. Patient sitting up in the chair with no acute complaints. Tolerating diet. He is saturating 95% on room air. 01/23/2025 Patient evaluated today in follow up. Reports no acute complaints, denies any chest pressure, chest pain. Denies shortness of breath. Chest xray this morning reveals mild cardiomegaly with new right greater than left acute infiltrates and or edema. He received IV lasix 40 mg dose today. Sodium of 136, potassium 4.1, BUN 16, creatinine 0.70. White blood cell count 7.70, hgb 11.9. Patient is afebrile, heart rate 82, blood pressure 101/59, 95% on 2L of oxygen via nasal cannula. 01/24/2025 Patient going for open heart today and will be moved to the ICU post surgery. Chest xray today reveals mild cardiomegaly, and medium diffuse interstitial opacities which show slight improvement from prior. 01/25/2025 Patient evaluated today in the ICU. Patient is in soft wrist restraints. Manvel- ava catheter was pulled out this AM. It has been replaced. He received 1 unit of PRBC and was started on vasopresors and primacor gtt. Chest tubes x 3 noted. AM chest xray reveals post-CABG changes with residual interstitial pulmonary edema, some the previous patchy changes have improved. Ongoing small right pleural effusion with adjacent atelectasis and or consolidation noted. WBC 10.99, hgb 8.0, sodium 135, BUN 16, creatinine 0.93. Review of Systems Unable to complete a review of systems as patient is confused today PHYSICAL EXAMINATION: GENERAL: The patient is alert and oriented x2-3, not in any acute distress. Well developed, well nourished. HEENT: Pupils are round and equally reacting to light. EOMI. No scleral icterus. No conjunctival pallor. Normocephalic, atraumatic. No pharyngeal erythema. No thyromegaly. CARDIOVASCULAR: S1 and S2 present. No murmurs, rubs, or gallops. PULMONARY: Chest is clear to auscultation, no wheezing or crackles. ABDOMEN: Soft, nontender, nondistended, normoactive bowel sounds. No palpable organomegaly. MUSCULOSKELETAL: No joint swelling or deformity. EXTREMITIES: No cyanosis, clubbing, or pedal edema. Soft wrist restraints in place NEUROLOGICAL: No focal neurological deficits. SKIN: No rashes. Assessment NSTEMI, status post cardiac catheterization reporting triple-vessel disease CAD with history of SC 2017, stenting of circumflex and LAD, current ran out of his medications-states unclear on timeframe. Last refill RX recorded at [facility] as October 2019. Developmental delay, at baseline per PCP and patient's brother Arvind. Follows with [facility]. Volume overload status post IV lasix Hypertension Hyperlipidemia Morbid obesity, BMI 33 Plan Patient is evaluated in the ICU post CABG He remains in soft wrist restraints Manvel-Ava has been replaced He remains in insulin GTT which will continue, blood glucose controlled Continue current cardiac medications Monitor electrolytes and renal function The impression and plan of care has been dictated by Kandy Che, Nurse Practitioner as directed. Dr. Jesus Alberto MD I have performed a history and physical examination and medical decision making of this patient, discussed the same with the dictator, and agree with the dictators assessment and plan as written, documented as a scribe. Based on total visit time, I have performed more than 50% of this visit. Objective - Vital Signs Vital signs: Vital Signs Temp 100.4 F H 01/26/25 04:00 Pulse 109 H 01/26/25 05:00 Resp 19 01/26/25 05:00 BP 108/60 01/26/25 05:00 Pulse Ox 98 01/26/25 05:00 FiO2 50 01/24/25 21:10 Intake & Output 01/25/25 01/25/25 01/26/25 06:59 18:59 06:59 Intake Total 2182.592 1710.434 646.208 Output Total 1050 900 495 Balance 1132.592 810.434 151.208 Weight 102.1 kg 102.1 kg 95.7 kg Intake: IV 1648 988 609 ACETAMINOPHEN IV (For NPO 100 300 100 ) 1,000 mg In Empty Bag 1 bag @ 400 mls/hr IVPB Q6HR FERNANDA Rx#:[id number] Albumin Human 5% 250 ml 500 In Empty Bag 1 bag @ 250 mls/hr IVPB Q1HR PRN Rx#: [id number] CO/CI 140 160 80 Pressure 108 108 99 Sodium Chloride 0.9% 1, 600 420 330 000 ml @ 30 mls/hr IV . Q24H FERNANDA Rx#:[id number] ceFAZolin 2 gm In 200 Dextrose 5% in Water 50 ml @ 100 mls/hr IVPB ONCE ONE Rx#:[id number] Intake, IV Titration 534.592 262.434 37.208 Amount Dexmedetomidine/0.9% NaCl 4.244 (Pmx) 400 mcg In Empty Bag 1 bag @ Titrate IV . Q0M FERNANDA Rx#:[id number] Insulin Regular 100 unit 22.969 6.019 4.208 In Sodium Chloride 0.9% 100 ml @ Per Protocol IV .Q0M FERNANDA Rx#:[id number] Milrinone-D5w Pmx 20 mg 33 33 In Dextrose/Water 1 100ml .bag @ 0.1 MCG/KG/MIN 3. 063 mls/hr IV .Q24H FERNANDA Rx#:[id number] Milrinone-D5w Pmx 20 mg 141.970 In Dextrose/Water 1 100ml .bag @ 0.375 MCG/KG/MIN 11.126 mls/hr IV .Q9H FERNANDA Rx#:[id number] Norepinephrine 4 mg In 307.256 136.532 Sodium Chloride 0.9% 250 ml @ 0.02 MCG/KG/MIN 7. 536 mls/hr IV .Q24H FERNANDA Rx#:[id number] Vasopressin 20 unit In 36.883 Sodium Chloride 0.9% 50 ml @ 0.03 UNITS/MIN 4.59 mls/hr IV .Q11H7M FERNANDA Rx# :[id number] ceFAZolin 2 gm In 50 Dextrose 5% in Water 50 ml @ 100 mls/hr IVPB Q8HR FERNANDA Rx#:[id number] propofoL 1,000 mg In 58.153 Empty Bag 1 bag @ Titrate IV .Q0M FERNANDA Rx#: [id number] Oral 100 Blood Product 310 Rc As-1 Unit 310 [id number] Other 50 Rc As-1 Unit 50 [id number] Output: Chest Tube Drainage 510 290 150 Left Pleural 280 190 80 Mediastinal 105 20 10 Right/Mediastinal 125 80 60 Urine 540 610 345 Other: Voiding Method Indwelling Catheter Indwelling Catheter Indwelling Catheter ABP, PAP, CO, CI - Last Documented Arterial Blood Pressure 100/61 Pulmonary Artery Pressure 68/42 Cardiac Output 6.3 Cardiac Index 3 - Labs CBC & Chem 7: 01/26/25 05:15 01/25/25 04:22 Labs: Abnormal Lab Results - Last 24 Hours (Table) 01/23/25 01/25/25 01/25/25 Range/Units 06:56 06:53 08:08 WBC (4.50-10.00) 10*3/uL RBC (4.40-5.60) 10*6/uL Hgb (13.0-17.0) g/dL Hct (39.6-50.0) % Plt Count (140-440) 10*3/uL Immature Gran # (0.00-0.04) 10*3/uL Neutrophils # (1.80-7.70) 10*3/uL Eosinophils # (0.04-0.35) 10*3/uL ABG pCO2 34 L (35-45) mmHg ABG pO2 70 L (83-108) mmHg ABG HCO3 (21-25) mmol/L ABG Total CO2 (19-24) mmol/L ABG O2 Saturation (94-97) % Hemoglobin 7.3 L (13.0-17.5) gm/dL POC Glucose (mg/dL) 124 H (70-110) mg/dL Crossmatch See Detail 01/25/25 01/25/25 01/25/25 Range/Units 09:06 09:19 11:05 WBC (4.50-10.00) 10*3/uL RBC (4.40-5.60) 10*6/uL Hgb (13.0-17.0) g/dL Hct (39.6-50.0) % Plt Count (140-440) 10*3/uL Immature Gran # (0.00-0.04) 10*3/uL Neutrophils # (1.80-7.70) 10*3/uL Eosinophils # (0.04-0.35) 10*3/uL ABG pCO2 (35-45) mmHg ABG pO2 <30 L* (83-108) mmHg ABG HCO3 (21-25) mmol/L ABG Total CO2 25 H (19-24) mmol/L ABG O2 Saturation 47.7 L (94-97) % Hemoglobin 7.9 L (13.0-17.5) gm/dL POC Glucose (mg/dL) 113 H 138 H (70-110) mg/dL Crossmatch 01/25/25 01/25/25 01/25/25 Range/Units 12:00 12:01 13:17 WBC 10.99 H (4.50-10.00) 10*3/uL RBC 2.50 L (4.40-5.60) 10*6/uL Hgb 8.0 L (13.0-17.0) g/dL Hct 22.9 L (39.6-50.0) % Plt Count 124 L (140-440) 10*3/uL Immature Gran # (0.00-0.04) 10*3/uL Neutrophils # (1.80-7.70) 10*3/uL Eosinophils # (0.04-0.35) 10*3/uL ABG pCO2 (35-45) mmHg ABG pO2 (83-108) mmHg ABG HCO3 (21-25) mmol/L ABG Total CO2 (19-24) mmol/L ABG O2 Saturation (94-97) % Hemoglobin (13.0-17.5) gm/dL POC Glucose (mg/dL) 150 H 140 H (70-110) mg/dL Crossmatch 01/25/25 01/25/25 01/25/25 Range/Units 14:52 15:01 16:13 WBC (4.50-10.00) 10*3/uL RBC (4.40-5.60) 10*6/uL Hgb (13.0-17.0) g/dL Hct (39.6-50.0) % Plt Count (140-440) 10*3/uL Immature Gran # (0.00-0.04) 10*3/uL Neutrophils # (1.80-7.70) 10*3/uL Eosinophils # (0.04-0.35) 10*3/uL ABG pCO2 (35-45) mmHg ABG pO2 <30 L* (83-108) mmHg ABG HCO3 26 H (21-25) mmol/L ABG Total CO2 27 H (19-24) mmol/L ABG O2 Saturation 58.4 L (94-97) % Hemoglobin 7.8 L (13.0-17.5) gm/dL POC Glucose (mg/dL) 123 H 119 H (70-110) mg/dL Crossmatch 01/25/25 01/25/25 01/25/25 Range/Units 17:51 19:57 23:05 WBC (4.50-10.00) 10*3/uL RBC (4.40-5.60) 10*6/uL Hgb (13.0-17.0) g/dL Hct (39.6-50.0) % Plt Count (140-440) 10*3/uL Immature Gran # (0.00-0.04) 10*3/uL Neutrophils # (1.80-7.70) 10*3/uL Eosinophils # (0.04-0.35) 10*3/uL ABG pCO2 (35-45) mmHg ABG pO2 (83-108) mmHg ABG HCO3 (21-25) mmol/L ABG Total CO2 (19-24) mmol/L ABG O2 Saturation (94-97) % Hemoglobin (13.0-17.5) gm/dL POC Glucose (mg/dL) 123 H 121 H 114 H (70-110) mg/dL Crossmatch 01/26/25 01/26/25 01/26/25 Range/Units 00:31 01:51 05:15 WBC 14.13 H (4.50-10.00) 10*3/uL RBC 2.58 L (4.40-5.60) 10*6/uL Hgb 8.2 L (13.0-17.0) g/dL Hct 24.0 L (39.6-50.0) % Plt Count (140-440) 10*3/uL Immature Gran # 0.07 H (0.00-0.04) 10*3/uL Neutrophils # 11.70 H (1.80-7.70) 10*3/uL Eosinophils # 0.00 L (0.04-0.35) 10*3/uL ABG pCO2 (35-45) mmHg ABG pO2 (83-108) mmHg ABG HCO3 (21-25) mmol/L ABG Total CO2 (19-24) mmol/L ABG O2 Saturation (94-97) % Hemoglobin (13.0-17.5) gm/dL POC Glucose (mg/dL) 125 H 122 H (70-110) mg/dL Crossmatch 01/26/25 Range/Units 05:16 WBC (4.50-10.00) 10*3/uL RBC (4.40-5.60) 10*6/uL Hgb (13.0-17.0) g/dL Hct (39.6-50.0) % Plt Count (140-440) 10*3/uL Immature Gran # (0.00-0.04) 10*3/uL Neutrophils # (1.80-7.70) 10*3/uL Eosinophils # (0.04-0.35) 10*3/uL ABG pCO2 (35-45) mmHg ABG pO2 (83-108) mmHg ABG HCO3 (21-25) mmol/L ABG Total CO2 (19-24) mmol/L ABG O2 Saturation (94-97) % Hemoglobin (13.0-17.5) gm/dL POC Glucose (mg/dL) 125 H (70-110) mg/dL Crossmatch Assessment and Plan Time with Patient: Less than 30
--- NOTE | 2025-01-26 06:50 | XR ---
EXAMINATION TYPE: XR chest 1V portable DATE OF EXAM: 01/26/2025 CLINICAL INDICATION: Male, 74 years old with history of Post Operative Cardiac Surgery, progress stud y. TECHNIQUE: Single AP portable semiupright view of the chest is obtained. COMPARISON: Chest x-ray from one day earlier and older studies. FINDINGS: Overlying sternal wires and mediastinal clips and left atrial appendage are redemonstrated . Stable left internal jugular [place]-Ava catheter. Stable left-sided chest tube. Interval removal of mediastinal drainage catheter. Persistent mild cardiomegaly with ectatic thoracic aorta and central increased opacities bilaterally and small right pleural effusion. No pneumothorax seen. Osseous structures are intact. IMPRESSION: Cardiomegaly with small right pleural effusion and bilateral edema remains present. Corre late for CHF exacerbation/fluid overload state. No significant change from one day earlier. [facility], , 01/26/2025 6:48 AM
[2025-01-26 06:57] LABS: Glucose,Whole Blood 135 mg/dL (70-110)
[2025-01-26 08:16] LABS: Glucose,Whole Blood 235 mg/dL (70-110)
[2025-01-26 09:15] LABS: Glucose,Whole Blood 158 mg/dL (70-110)
[2025-01-26 10:24] LABS: Glucose,Whole Blood 106 mg/dL (70-110)
[2025-01-26 10:31] LABS: ABG Base Excess 0.1 mmol/L; ABG HCO3 24 mmol/L (21-25); ABG Oxygen Saturation 56.4 % (94-97); ABG PCO2 35 mmHg (35-45); ABG PH 7.45 (7.35-7.45); ABG TCO2 25 mmol/L (19-24)
[2025-01-26] MEDS: METOPROLOL TARTRATE 12.5 MG TAB PO SCH (10:36)
[2025-01-26 10:43] LABS: ABG PO2 <30 mmHg (83-108)
[2025-01-26] MEDS: KETOROLAC 15 MG/ML 1 ML VIAL IVP STA (10:50)
[2025-01-26] MEDS: ACETAMINOPHEN IV (For NPO) 1,000 MG in EMPTY BAG 1 BAG IVPB SCH (10:52)
--- NOTE | 2025-01-26 10:52 | P.PN ---
Subjective Progress Note Date: 01/26/25 Principal diagnosis: Multivessel coronary artery disease, non-ST elevated myocardial infarction this admission. Past medical history significant for coronary artery disease with m yocardial infarction and previous stent placement to his circumflex coronary artery and left anterior descending coronary artery in August 2017, hypertension, hyperlipidemia, obesity, lifetime non-smoker. POD #2 coronary artery bypass graft x 3 with left internal mammary artery to the left anterior descending artery, left radial artery to the obtuse marginal artery, reverse saphenous vein graft to the posterior descending artery, endoscopic vein harvesting of the left greater saphenous vein, endoscopic harvesting of the left radial artery, ligation of the left atrial appendage with a 35 mm AtriClip, epiaortic ultrasound, intraoperative transesophageal echocardiogram, graft flow measurements using the Kaleio stim system Acute blood loss anemia, expected given hemodilution and cardiopulmonary bypass pump. Hypotension, somewhat expected due to vasoplegia as well as acute blood loss. The patient was seen and examined in follow-up this morning January 26, 2025 at his bedside in the intensive care unit. He is currently sitting up to the bedside chair, is awake and alert, and is oriented x 3. The patient is slow to respond to questions, but appropriate. He has been off vasopressors since yesterday afternoon. Primacor drip continues to infuse at 0.1 mcg/kg/min. He denies any complaints of shortness of breath at this time, although is complaining of some surgical type pain to his chest tube insertion sites and currently rating his pain 8 out of 10 on the pain scale. The patient is also complaining of some generalized weakness. Right IJ cordis and [place]-Ava catheter remains in place with current hemodynamics showing a cardiac output of 5.8, cardiac index 2.7, SVR 895, PA pressures 36/12, and CVP 5 mmHg. Oxygen saturations are 97% on room air and he is achieving 750 mL on his sentence from a tree with encouragement. Mediastinal and left pleural chest tubes remain in place to low continuous wall suction -20 cm H2O. No airleak is present. Draining thin serosanguineous drainage. Mediastinal chest tube had no drainage in the last 24 hours, Jeevan drain drained 50 mL output in the last 8 hours and 100 mL output in the last 24 hours and left pleural chest tube drained 40 mL output in the last 8 hours and 150 mL output in the last 24 hours. Chest x-ray and laboratory results were reviewed. Objective - Vital Signs Vital signs: Vital Signs Temp 100.6 F H 01/26/25 08:00 Pulse 109 H 01/26/25 09:00 Resp 35 H 01/26/25 09:00 BP 116/72 01/26/25 08:30 Pulse Ox 100 01/26/25 09:00 FiO2 50 01/24/25 21:10 Intake & Output 01/25/25 01/26/25 01/26/25 18:59 06:59 18:59 Intake Total 1710.434 708.208 913.202 Output Total 900 515 145 Balance 810.434 193.208 768.202 Weight 102.1 kg 95.7 kg Intake: IV 988 668 175 ACETAMINOPHEN IV (For NPO 300 100 ) 1,000 mg In Empty Bag 1 bag @ 400 mls/hr IVPB Q6HR FERNANDA Rx#:[id number] CO/CI 160 100 18 Pressure 108 108 27 Sodium Chloride 0.9% 1, 420 360 130 000 ml @ 30 mls/hr IV . Q24H FERNANDA Rx#:[id number] Intake, IV Titration 262.434 40.208 8.202 Amount Insulin Regular 100 unit 6.019 4.208 5.202 In Sodium Chloride 0.9% 100 ml @ Per Protocol IV .Q0M FERNANDA Rx#:[id number] Milrinone-D5w Pmx 20 mg 33 36 3 In Dextrose/Water 1 100ml .bag @ 0.1 MCG/KG/MIN 3. 063 mls/hr IV .Q24H FERNANDA Rx#:[id number] Norepinephrine 4 mg In 136.532 Sodium Chloride 0.9% 250 ml @ 0.02 MCG/KG/MIN 7. 536 mls/hr IV .Q24H FERNANDA Rx#:[id number] Vasopressin 20 unit In 36.883 Sodium Chloride 0.9% 50 ml @ 0.03 UNITS/MIN 4.59 mls/hr IV .Q11H7M FERNANDA Rx# :[id number] ceFAZolin 2 gm In 50 Dextrose 5% in Water 50 ml @ 100 mls/hr IVPB Q8HR FERNANDA Rx#:[id number] Oral 100 730 Blood Product 310 Rc As-1 Unit 310 [id number] Other 50 Rc As-1 Unit 50 [id number] Output: Chest Tube Drainage 290 150 50 Left Pleural 190 80 20 Mediastinal 20 10 10 Right/Mediastinal 80 60 20 Urine 610 365 95 Other: Voiding Method Indwelling Catheter Indwelling Catheter ABP, PAP, CO, CI - Last Documented Arterial Blood Pressure 139/45 Pulmonary Artery Pressure 38/13 Cardiac Output 5.3 Cardiac Index 2.5 - Exam CONSTITUTIONAL: Appears somewhat comfortable although remains very fidgety. RESPIRATORY: Lungs sounds diminished to his bilateral bases, right greater than left. Respirations symmetrical, nonlabored. Currently on room air with oxygen saturation 97%. Achieving 750 mL on his incentive spirometry with encouragement. Strong cough. CARDIOVASCULAR: S1, S2 present. Regular rate and rhythm, sinus tach on telemetry, heart rate 105 bpm. Sternum stable. Palpable peripheral pulses bilaterally. Generalized +1 edema present. No calf pain or tenderness noted. Heart hugger, antiembolism stockings, SCDs present. GASTROINTESTINAL: Abdomen soft, nontender, nondistended. Hypoactive bowel sounds present 4 quadrants. Denies passing flatus. Tolerating clear liquid di et. GENITOURINARY: Porter present draining clear, yellow urine. Urine output 265 mL in the last 8 hours. INTEGUMENTARY: Skin is warm and dry, no clubbing or cyanosis is present. Midline sternal incision well approximated and covered with intact dressing. Left radial artery harvest site as well as left lower extremity EVH site well approximated without redness or drainage. NEUROLOGIC: Cranial nerves II through XII intact. No focal deficits. MUSKULOSKELETAL: Able to move all extremities, strength equal bilaterally, generalized weakness present. PSYCHIATRIC: Alert, slow to respond to questions, oriented to person, place and time, does follow commands, moves all extremities. INVASIVE LINES AND TUBES: Mediastinal x2/left chest tubes present and connected to wall suction, no air leaks present. Right most mediastinal tube with 50 mL serosanguineous drainage overnight, 100 mL in the last 24 hours. Mediastinal chest tube with no output in the last 24 hours. Left pleural chest tube with 40 mL serosanguineous drainage overnight, 150 mL output in the last 24 hours. Atrial and ventricular epicardial pacemaker wires present, connected to generator, backup rate 50 bpm. Left internal jugular [place], right radial arterial line present. Last CO/CI 5.8/2.7, SVR 809, PA 36/12, CVP 5. - Allied health notes Allied health notes reviewed: nursing - Labs CBC & Chem 7: 01/26/25 05:15 01/26/25 05:15 Labs: Abnormal Lab Results - Last 24 Hours (Table) 01/23/25 01/25/25 01/25/25 Range/Units 06:56 11:05 12:00 WBC 10.99 H (4.50-10.00) 10*3/uL RBC 2.50 L (4.40-5.60) 10*6/uL Hgb 8.0 L (13.0-17.0) g/dL Hct 22.9 L (39.6-50.0) % Plt Count 124 L (140-440) 10*3/uL Immature Gran # (0.00-0.04) 10*3/uL Neutrophils # (1.80-7.70) 10*3/uL Eosinophils # (0.04-0.35) 10*3/uL ABG pO2 (83-108) mmHg ABG HCO3 (21-25) mmol/L ABG Total CO2 (19-24) mmol/L ABG O2 Saturation (94-97) % Hemoglobin (13.0-17.5) gm/dL Sodium (137-145) mmol/L Carbon Dioxide (22-30) mmol/L Glucose (74-99) mg/dL POC Glucose (mg/dL) 138 H (70-110) mg/dL Total Bilirubin (0.2-1.3) mg/dL AST (17-59) U/L Total Protein (6.3-8.2) g/dL Albumin (3.5-5.0) g/dL Crossmatch See Detail 01/25/25 01/25/25 01/25/25 Range/Units 12:01 13:17 14:52 WBC (4.50-10.00) 10*3/uL RBC (4.40-5.60) 10*6/uL Hgb (13.0-17.0) g/dL Hct (39.6-50.0) % Plt Count (140-440) 10*3/uL Immature Gran # (0.00-0.04) 10*3/uL Neutrophils # (1.80-7.70) 10*3/uL Eosinophils # (0.04-0.35) 10*3/uL ABG pO2 (83-108) mmHg ABG HCO3 (21-25) mmol/L ABG Total CO2 (19-24) mmol/L ABG O2 Saturation (94-97) % Hemoglobin (13.0-17.5) gm/dL Sodium (137-145) mmol/L Carbon Dioxide (22-30) mmol/L Glucose (74-99) mg/dL POC Glucose (mg/dL) 150 H 140 H 123 H (70-110) mg/dL Total Bilirubin (0.2-1.3) mg/dL AST (17-59) U/L Total Protein (6.3-8.2) g/dL Albumin (3.5-5.0) g/dL Crossmatch 01/25/25 01/25/25 01/25/25 Range/Units 15:01 16:13 17:51 WBC (4.50-10.00) 10*3/uL RBC (4.40-5.60) 10*6/uL Hgb (13.0-17.0) g/dL Hct (39.6-50.0) % Plt Count (140-440) 10*3/uL Immature Gran # (0.00-0.04) 10*3/uL Neutrophils # (1.80-7.70) 10*3/uL Eosinophils # (0.04-0.35) 10*3/uL ABG pO2 <30 L* (83-108) mmHg ABG HCO3 26 H (21-25) mmol/L ABG Total CO2 27 H (19-24) mmol/L ABG O2 Saturation 58.4 L (94-97) % Hemoglobin 7.8 L (13.0-17.5) gm/dL Sodium (137-145) mmol/L Carbon Dioxide (22-30) mmol/L Glucose (74-99) mg/dL POC Glucose (mg/dL) 119 H 123 H (70-110) mg/dL Total Bilirubin (0.2-1.3) mg/dL AST (17-59) U/L Total Protein (6.3-8.2) g/dL Albumin (3.5-5.0) g/dL Crossmatch 01/25/25 01/25/25 01/26/25 Range/Units 19:57 23:05 00:31 WBC (4.50-10.00) 10*3/uL RBC (4.40-5.60) 10*6/uL Hgb (13.0-17.0) g/dL Hct (39.6-50.0) % Plt Count (140-440) 10*3/uL Immature Gran # (0.00-0.04) 10*3/uL Neutrophils # (1.80-7.70) 10*3/uL Eosinophils # (0.04-0.35) 10*3/uL ABG pO2 (83-108) mmHg ABG HCO3 (21-25) mmol/L ABG Total CO2 (19-24) mmol/L ABG O2 Saturation (94-97) % Hemoglobin (13.0-17.5) gm/dL Sodium (137-145) mmol/L Carbon Dioxide (22-30) mmol/L Glucose (74-99) mg/dL POC Glucose (mg/dL) 121 H 114 H 125 H (70-110) mg/dL Total Bilirubin (0.2-1.3) mg/dL AST (17-59) U/L Total Protein (6.3-8.2) g/dL Albumin (3.5-5.0) g/dL Crossmatch 01/26/25 01/26/25 01/26/25 Range/Units 01:51 05:15 05:15 WBC 14.13 H (4.50-10.00) 10*3/uL RBC 2.58 L (4.40-5.60) 10*6/uL Hgb 8.2 L (13.0-17.0) g/dL Hct 24.0 L (39.6-50.0) % Plt Count (140-440) 10*3/uL Immature Gran # 0.07 H (0.00-0.04) 10*3/uL Neutrophils # 11.70 H (1.80-7.70) 10*3/uL Eosinophils # 0.00 L (0.04-0.35) 10*3/uL ABG pO2 (83-108) mmHg ABG HCO3 (21-25) mmol/L ABG Total CO2 (19-24) mmol/L ABG O2 Saturation (94-97) % Hemoglobin (13.0-17.5) gm/dL Sodium 134 L (137-145) mmol/L Carbon Dioxide 21 L (22-30) mmol/L Glucose 114 H (74-99) mg/dL POC Glucose (mg/dL) 122 H (70-110) mg/dL Total Bilirubin 1.7 H (0.2-1.3) mg/dL AST 62 H (17-59) U/L Total Protein 5.4 L (6.3-8.2) g/dL Albumin 3.4 L (3.5-5.0) g/dL Crossmatch 01/26/25 01/26/25 01/26/25 Range/Units 05:16 06:56 08:14 WBC (4.50-10.00) 10*3/uL RBC (4.40-5.60) 10*6/uL Hgb (13.0-17.0) g/dL Hct (39.6-50.0) % Plt Count (140-440) 10*3/uL Immature Gran # (0.00-0.04) 10*3/uL Neutrophils # (1.80-7.70) 10*3/uL Eosinophils # (0.04-0.35) 10*3/uL ABG pO2 (83-108) mmHg ABG HCO3 (21-25) mmol/L ABG Total CO2 (19-24) mmol/L ABG O2 Saturation (94-97) % Hemoglobin (13.0-17.5) gm/dL Sodium (137-145) mmol/L Carbon Dioxide (22-30) mmol/L Glucose (74-99) mg/dL POC Glucose (mg/dL) 125 H 135 H 235 H (70-110) mg/dL Total Bilirubin (0.2-1.3) mg/dL AST (17-59) U/L Total Protein (6.3-8.2) g/dL Albumin (3.5-5.0) g/dL Crossmatch 01/26/25 Range/Units 09:14 WBC (4.50-10.00) 10*3/uL RBC (4.40-5.60) 10*6/uL Hgb (13.0-17.0) g/dL Hct (39.6-50.0) % Plt Count (140-440) 10*3/uL Immature Gran # (0.00-0.04) 10*3/uL Neutrophils # (1.80-7.70) 10*3/uL Eosinophils # (0.04-0.35) 10*3/uL ABG pO2 (83-108) mmHg ABG HCO3 (21-25) mmol/L ABG Total CO2 (19-24) mmol/L ABG O2 Saturation (94-97) % Hemoglobin (13.0-17.5) gm/dL Sodium (137-145) mmol/L Carbon Dioxide (22-30) mmol/L Glucose (74-99) mg/dL POC Glucose (mg/dL) 158 H (70-110) mg/dL Total Bilirubin (0.2-1.3) mg/dL AST (17-59) U/L Total Protein (6.3-8.2) g/dL Albumin (3.5-5.0) g/dL Crossmatch - Imaging and Cardiology Chest x-ray: report reviewed, image reviewed Assessment and Plan Assessment: Multivessel coronary artery disease, non-ST elevated myocardial infarction this admission status post three-vessel CABG Acute blood loss anemia, expected given hemodilution and cardiopulmonary bypass pump Hypotension, somewhat expected due to vasoplegia as well as acute blood loss, resolved History of coronary artery disease with myocardial infarction and previous stent placement to Cx and LAD in August 2017 Hypertension Hyperlipidemia, cholesterol 174, LDL 100.8, triglycerides 139 Obesity Lifetime non-smoker Developmental delay Plan: Continue to maximize medical therapy with aspirin, statin, Plavix and beta- trixie. Will start metoprolol to tartrate 12.5 mg p.o. twice daily with hold parameters. We will discontinue her Primacor drip. Amiodarone 150 mg IV x 1 now. Encourage incentive spirometry use 10 times every hour while awake. Bronchodilators per pulmonology. Will monitor daily labs and chest x-rays. Electrolyte replacement per protocol. Increase activity as tolerated. PT/OT/cardiac rehab following. ABG and mixed venous gas have been sent. GI/DVT prophylaxis Continue [place] for another 24 hours. Continue Porter catheter for another 24 hours, continue to monitor strict accurate intake and output. We will remove his chest tubes today. Insulin management per internal medicine. Patient is not diabetic, preoperative hemoglobin A1c 5.4%. Patient should remain on continuous IV insulin for 48 hours, then may transition to subcutaneous per protocol Pain control per current medication regimen. IV Tylenol ordered every 6 hours x 4 doses, no narcotics, one-time dose of Toradol has been ordered. Keep in the intensive care unit. More recommendations to follow based on patient's clinical course Time with Patient: Greater than 30
[2025-01-26 11:18] LABS: Glucose,Whole Blood 105 mg/dL (70-110)
--- NOTE | 2025-01-26 11:54 | P.PN ---
Subjective Progress Note Date: 01/26/25 This is a 74-year-old white male known history of coronary artery disease, previous stenting of circumflex and LAD, known history of hypertension, dyslipidemia, patient presented to the hospital on 01/16 with chest pain suggestive of acute coronary syndrome. Patient was seen by cardiology and he was felt to have non-ST elevation myocardial infarction started patient initially on heparin aspirin atorvastatin and metoprolol. Patient underwent cardiac catheterization, he was found to have multivessel coronary artery disease, seen by cardiothoracic surgery on consultation, and the plan is to proceed with myocardial revascularization. Workup so far included CT of the chest, it showed no acute thoracic process, it also showed nonspecific pulmonary nodules measuring up to 4 mm, and he was found to have cholelithiasis. Patient states that he is quite active, patient walks on a daily basis, and he never smoked. Denies any cough wheezing shortness of breath. Denies any fever or chills or hemoptysis. Going back to his cardiac catheterization, it showed three-vessel coronary artery disease with 80 to 90% stenosis of the LAD, 95% stenosis to the ostial circumflex coronary artery 70 to 80% stenosis to the ostium of the PLV coronary artery and 50 to 60% to the PDA coronary artery. Seen today on 01/22/2025, patient is now scheduled for myocardial revascularization on Friday. Doing well, asymptomatic, achieving over 1500 cc on incentive spirometry, not in any distress no cough no wheezing no shortness of breath, electrolytes are normal renal profile is normal CBC is normal Patient was seen today on 01/23/2025, patient is resting in bed, does not seem to be in any distress, supposed to undergo myocardial revascularization tomorrow. Patient did develop some component of pulmonary edema as noted on his follow-up chest x-ray, received diuretics/Lasix, and seems to be clinically better. Baseline FEV1 is 61%, The patient is seen today January 24, 2025 in follow-up in the intensive care unit. He is now status post coronary artery bypass grafting with a CHOE to the LAD RHA to the OM, SVG to the PDA and left atrial appendage clipping. Currently on the mechanical ventilator and assist-control mode at a rate of 16, tidal volume 500 and FiO2 100% and a PEEP of 10. Arterial blood gases revealed a PaO2 of 367, [id number] and a pH of 7.38. He is currently on a nitroglycerin drip at 5 mcg/min. 7 5 mcg/kg/min. Norepinephrine at 0.07 mcg/kg/min. Propofol at 20 mcg/kg/min. Normal saline at 50 mL/h. He has a right, left and mediastinal chest tube in place. Cardiac output 4.4. Cardiac index 2.1. PA pressure 26/12. He did receive 2 units of fresh frozen plasma and 1 albumin since his return from the OR. White count 9.8. Hemoglobin 7.0. Platelets 106. Sodium 135. Potassium 4.4. Bicarb 23. BUN 14. Creatinine 0.62. Glucose 116. He is initiated on DuoNeb ventilations. Heparin for DVT prophylaxis. The patient is seen today January 25, 2025 in follow-up in the intensive care unit. He is was extubated last evening at 22:15. Currently maintaining O2 saturations in the high 90s on 6 L high flow nasal cannula. Core temperature 100.6. Slightly tachycardic at 114. Blood pressure 134/51. PA pressure 46/28. CVP 16. Cardiac output 5.6. Cardiac index 2.7. Vasopressin and norepinephrine have been weaned off. He remains on Primacor at 0.1 mcg/kg/min. Insulin drip at 1 unit/h. Normal saline at 50 mL/h. Remains on bronchodilators. Remains on heparin for DVT prophylaxis. He inadvertently pulled out his Newcomb-Ava catheter earlier this morning. This was replaced by anesthesia. Arterial blood gases revealed a PaO2 of 70, PCO2 of 34, pH 7.43. Chest x-ray revealed postoperative changes, mild pulmonary edema. Small right pleural effusion. Right, left and mediastinal chest tubes remain in place. Pacer wires remain in place. Status post 2 units of packed red blood cells, 2 units of fresh frozen plasma, 1 unit of platelets. Lites 103. Sodium 135. Potassium 4.0. Bicarb 24. BUN 16. Creatinine 0.63. Glucose 119. Albumin 3.3. The patient is seen today January 26, 2025 in follow-up in the intensive care unit. He is currently sitting up in bed. Awake and alert in no acute distress. He is maintaining O2 saturations in the 90s on room air oxygen. He is pulling only about 750 to 1000 mL on the incentive spirometer. He remains on insulin drip at 1 unit/h. Primacor drip at 0.1 mcg/kg/min. Normal saline at 50 mL/h. Right, left, mediastinal chest tubes remain in place. Cardiac output 5.3. Cardiac index 2.5. PA pressure 42/17. CVP 8. Core temperature 100.6. Chest x-ray reveals cardiomegaly with small right pleural effusion and bilateral venous congestion. He is status post 2 units of packed red blood cells, 2 units of fresh frozen plasma, 1 unit of platelets. White count 14.1. Hemoglobin 8.2. Platelets 145. Sodium 134. Potassium 4.1. Bicarb 21. BUN 19. Creatinine 0.70. Glucose 114. He remains on DuoNeb inhalations. Heparin for DVT prophylaxis. Objective - Vital Signs Vital signs: Vital Signs Temp 100.6 F H 01/26/25 08:00 Pulse 109 H 01/26/25 09:00 Resp 35 H 01/26/25 09:00 BP 116/72 01/26/25 08:30 Pulse Ox 100 01/26/25 09:00 FiO2 50 01/24/25 21:10 Intake & Output 01/25/25 01/26/25 01/26/25 18:59 06:59 18:59 Intake Total 1710.434 708.208 914.330 Output Total 900 515 145 Balance 810.434 193.208 769.330 Weight 102.1 kg 95.7 kg Intake: IV 988 668 175 ACETAMINOPHEN IV (For NPO 300 100 ) 1,000 mg In Empty Bag 1 bag @ 400 mls/hr IVPB Q6HR FERNANDA Rx#:[id number] CO/CI 160 100 18 Pressure 108 108 27 Sodium Chloride 0.9% 1, 420 360 130 000 ml @ 30 mls/hr IV . Q24H FERNANDA Rx#:[id number] Intake, IV Titration 262.434 40.208 9.330 Amount Insulin Regular 100 unit 6.019 4.208 6.330 In Sodium Chloride 0.9% 100 ml @ Per Protocol IV .Q0M FERNANDA Rx#:[id number] Milrinone-D5w Pmx 20 mg 33 36 3 In Dextrose/Water 1 100ml .bag @ 0.1 MCG/KG/MIN 3. 063 mls/hr IV .Q24H FERNANDA Rx#:[id number] Norepinephrine 4 mg In 136.532 Sodium Chloride 0.9% 250 ml @ 0.02 MCG/KG/MIN 7. 536 mls/hr IV .Q24H FERNANDA Rx#:[id number] Vasopressin 20 unit In 36.883 Sodium Chloride 0.9% 50 ml @ 0.03 UNITS/MIN 4.59 mls/hr IV .Q11H7M FERNANDA Rx# :[id number] ceFAZolin 2 gm In 50 Dextrose 5% in Water 50 ml @ 100 mls/hr IVPB Q8HR FERNANDA Rx#:[id number] Oral 100 730 Blood Product 310 Rc As-1 Unit 310 [id number] Other 50 Rc As-1 Unit 50 [id number] Output: Chest Tube Drainage 290 150 50 Left Pleural 190 80 20 Mediastinal 20 10 10 Right/Mediastinal 80 60 20 Urine 610 365 95 Other: Voiding Method Indwelling Catheter Indwelling Catheter ABP, PAP, CO, CI - Last Documented Arterial Blood Pressure 139/45 Pulmonary Artery Pressure 38/13 Cardiac Output 5.3 Cardiac Index 2.5 - Exam GENERAL EXAM: Alert, 74-year-old male, on room air oxygen, comfortable in no acute distress HEAD: Normocephalic. EYES: Normal reaction of pupils, equal size. NOSE: Clear with pink turbinates. THROAT: No erythema or exudates. NECK: Left IJ Newcomb-Ava catheter in place. No masses, no JVD. CHEST: Sternal dressing dry and intact. Right, left and mediastinal chest tubes in place. Pacer wires in place. LUNGS: Equal air entry with few scattered rhonchi, crackles in the right lung base. CVS: S1 and S2 normal with no audible murmur, regular rhythm. ABDOMEN: No hepatosplenomegaly, no guarding or rigidity. SPINE: No scoliosis or deformity SKIN: No rashes CENTRAL NERVOUS SYSTEM: Sedated, tone is normal in all 4 extremities. EXTREMITIES: Right radial arterial line in place. Bilateral lower extremities with Wyatt wraps in place. Peripheral pulses are intact. - Labs CBC & Chem 7: 01/26/25 05:15 01/26/25 05:15 Labs: Abnormal Lab Results - Last 24 Hours (Table) 01/23/25 01/25/25 01/25/25 Range/Units 06:56 12:00 12:01 WBC 10.99 H (4.50-10.00) 10*3/uL RBC 2.50 L (4.40-5.60) 10*6/uL Hgb 8.0 L (13.0-17.0) g/dL Hct 22.9 L (39.6-50.0) % Plt Count 124 L (140-440) 10*3/uL Immature Gran # (0.00-0.04) 10*3/uL Neutrophils # (1.80-7.70) 10*3/uL Eosinophils # (0.04-0.35) 10*3/uL ABG pO2 (83-108) mmHg ABG HCO3 (21-25) mmol/L ABG Total CO2 (19-24) mmol/L ABG O2 Saturation (94-97) % Hemoglobin (13.0-17.5) gm/dL Sodium (137-145) mmol/L Carbon Dioxide (22-30) mmol/L Glucose (74-99) mg/dL POC Glucose (mg/dL) 150 H (70-110) mg/dL Total Bilirubin (0.2-1.3) mg/dL AST (17-59) U/L Total Protein (6.3-8.2) g/dL Albumin (3.5-5.0) g/dL Crossmatch See Detail 01/25/25 01/25/25 01/25/25 Range/Units 13:17 14:52 15:01 WBC (4.50-10.00) 10*3/uL RBC (4.40-5.60) 10*6/uL Hgb (13.0-17.0) g/dL Hct (39.6-50.0) % Plt Count (140-440) 10*3/uL Immature Gran # (0.00-0.04) 10*3/uL Neutrophils # (1.80-7.70) 10*3/uL Eosinophils # (0.04-0.35) 10*3/uL ABG pO2 <30 L* (83-108) mmHg ABG HCO3 26 H (21-25) mmol/L ABG Total CO2 27 H (19-24) mmol/L ABG O2 Saturation 58.4 L (94-97) % Hemoglobin 7.8 L (13.0-17.5) gm/dL Sodium (137-145) mmol/L Carbon Dioxide (22-30) mmol/L Glucose (74-99) mg/dL POC Glucose (mg/dL) 140 H 123 H (70-110) mg/dL Total Bilirubin (0.2-1.3) mg/dL AST (17-59) U/L Total Protein (6.3-8.2) g/dL Albumin (3.5-5.0) g/dL Crossmatch 01/25/25 01/25/25 01/25/25 Range/Units 16:13 17:51 19:57 WBC (4.50-10.00) 10*3/uL RBC (4.40-5.60) 10*6/uL Hgb (13.0-17.0) g/dL Hct (39.6-50.0) % Plt Count (140-440) 10*3/uL Immature Gran # (0.00-0.04) 10*3/uL Neutrophils # (1.80-7.70) 10*3/uL Eosinophils # (0.04-0.35) 10*3/uL ABG pO2 (83-108) mmHg ABG HCO3 (21-25) mmol/L ABG Total CO2 (19-24) mmol/L ABG O2 Saturation (94-97) % Hemoglobin (13.0-17.5) gm/dL Sodium (137-145) mmol/L Carbon Dioxide (22-30) mmol/L Glucose (74-99) mg/dL POC Glucose (mg/dL) 119 H 123 H 121 H (70-110) mg/dL Total Bilirubin (0.2-1.3) mg/dL AST (17-59) U/L Total Protein (6.3-8.2) g/dL Albumin (3.5-5.0) g/dL Crossmatch 01/25/25 01/26/25 01/26/25 Range/Units 23:05 00:31 01:51 WBC (4.50-10.00) 10*3/uL RBC (4.40-5.60) 10*6/uL Hgb (13.0-17.0) g/dL Hct (39.6-50.0) % Plt Count (140-440) 10*3/uL Immature Gran # (0.00-0.04) 10*3/uL Neutrophils # (1.80-7.70) 10*3/uL Eosinophils # (0.04-0.35) 10*3/uL ABG pO2 (83-108) mmHg ABG HCO3 (21-25) mmol/L ABG Total CO2 (19-24) mmol/L ABG O2 Saturation (94-97) % Hemoglobin (13.0-17.5) gm/dL Sodium (137-145) mmol/L Carbon Dioxide (22-30) mmol/L Glucose (74-99) mg/dL POC Glucose (mg/dL) 114 H 125 H 122 H (70-110) mg/dL Total Bilirubin (0.2-1.3) mg/dL AST (17-59) U/L Total Protein (6.3-8.2) g/dL Albumin (3.5-5.0) g/dL Crossmatch 01/26/25 01/26/25 01/26/25 Range/Units 05:15 05:15 05:16 WBC 14.13 H (4.50-10.00) 10*3/uL RBC 2.58 L (4.40-5.60) 10*6/uL Hgb 8.2 L (13.0-17.0) g/dL Hct 24.0 L (39.6-50.0) % Plt Count (140-440) 10*3/uL Immature Gran # 0.07 H (0.00-0.04) 10*3/uL Neutrophils # 11.70 H (1.80-7.70) 10*3/uL Eosinophils # 0.00 L (0.04-0.35) 10*3/uL ABG pO2 (83-108) mmHg ABG HCO3 (21-25) mmol/L ABG Total CO2 (19-24) mmol/L ABG O2 Saturation (94-97) % Hemoglobin (13.0-17.5) gm/dL Sodium 134 L (137-145) mmol/L Carbon Dioxide 21 L (22-30) mmol/L Glucose 114 H (74-99) mg/dL POC Glucose (mg/dL) 125 H (70-110) mg/dL Total Bilirubin 1.7 H (0.2-1.3) mg/dL AST 62 H (17-59) U/L Total Protein 5.4 L (6.3-8.2) g/dL Albumin 3.4 L (3.5-5.0) g/dL Crossmatch 01/26/25 01/26/25 01/26/25 Range/Units 06:56 08:14 09:14 WBC (4.50-10.00) 10*3/uL RBC (4.40-5.60) 10*6/uL Hgb (13.0-17.0) g/dL Hct (39.6-50.0) % Plt Count (140-440) 10*3/uL Immature Gran # (0.00-0.04) 10*3/uL Neutrophils # (1.80-7.70) 10*3/uL Eosinophils # (0.04-0.35) 10*3/uL ABG pO2 (83-108) mmHg ABG HCO3 (21-25) mmol/L ABG Total CO2 (19-24) mmol/L ABG O2 Saturation (94-97) % Hemoglobin (13.0-17.5) gm/dL Sodium (137-145) mmol/L Carbon Dioxide (22-30) mmol/L Glucose (74-99) mg/dL POC Glucose (mg/dL) 135 H 235 H 158 H (70-110) mg/dL Total Bilirubin (0.2-1.3) mg/dL AST (17-59) U/L Total Protein (6.3-8.2) g/dL Albumin (3.5-5.0) g/dL Crossmatch 01/26/25 Range/Units 10:26 WBC (4.50-10.00) 10*3/uL RBC (4.40-5.60) 10*6/uL Hgb (13.0-17.0) g/dL Hct (39.6-50.0) % Plt Count (140-440) 10*3/uL Immature Gran # (0.00-0.04) 10*3/uL Neutrophils # (1.80-7.70) 10*3/uL Eosinophils # (0.04-0.35) 10*3/uL ABG pO2 <30 L* (83-108) mmHg ABG HCO3 (21-25) mmol/L ABG Total CO2 25 H (19-24) mmol/L ABG O2 Saturation 56.4 L (94-97) % Hemoglobin 8.2 L (13.0-17.5) gm/dL Sodium (137-145) mmol/L Carbon Dioxide (22-30) mmol/L Glucose (74-99) mg/dL POC Glucose (mg/dL) (70-110) mg/dL Total Bilirubin (0.2-1.3) mg/dL AST (17-59) U/L Total Protein (6.3-8.2) g/dL Albumin (3.5-5.0) g/dL Crossmatch Assessment and Plan Assessment: Multivessel coronary artery disease. Status postcoronary artery bypass grafting x 3 with a CHOE to the LAD, RAH to the OM, SVG to the PDA with left atrial appendage clipping. Postoperative day #2 Mechanical ventilator management, expected outcome of surgery recovered and on room air oxygen Acute blood loss anemia, expected outcome of surgery Acute non-ST elevation myocardial infarction, previous history of RI in 2017 History of previous stent placement to circumflex and LAD in 2017 Benign essential hypertension Lifetime non-smoker Nonspecific pulmonary nodules sub-5 mm Dyslipidemia Benign essential hypertension Plan: The patient was seen and evaluated Chest x-ray, labs and medications reviewed Currently stable on room air oxygen Continue bronchodilators Heparin for DVT prophylaxis Continued use of the incentive spirometer Increase his activity as tolerated We will continue to follow I have personally seen and examined the patient, performed the documentation and the assessment and plan as written. Number of minutes spent on the visit: 10 Dictation was produced using [employer] dictation software. Please excuse any grammatical, word or spelling errors.
[2025-01-26 12:07] LABS: Glucose,Whole Blood 110 mg/dL (70-110)
[2025-01-26 12:54] LABS: ABG Base Excess -0.9 mmol/L; ABG HCO3 22 mmol/L (21-25); ABG Oxygen Saturation 97.7 % (94-97); ABG PCO2 29 mmHg (35-45); ABG PH 7.49 (7.35-7.45); ABG PO2 79 mmHg (83-108); ABG TCO2 23 mmol/L (19-24); Allen Test Performed? Yes
[2025-01-26] MEDS: ALBUMIN HUMAN 25% 50 ML in EMPTY BAG 1 BAG IVPB ONE (12:54)
[2025-01-26] MEDS: CALCIUM GLUCONATE IN NACL 1 GM in SALINE 1 100ML.BAG IVPB ONE (12:54)
[2025-01-26] MEDS: FUROSEMIDE 10 MG/ML 2 ML VIAL IV ONE (12:54)
[2025-01-26 13:12] LABS: Glucose,Whole Blood 117 mg/dL (70-110)
--- NOTE | 2025-01-26 13:16 | US ---
EXAMINATION TYPE: US chest DATE OF EXAM: 01/26/2025 COMPARISON: Chest x-ray earlier today CLINICAL INDICATION: Male, 74 years old with history of right pleural effusion; Right pleural effusio n TECHNIQUE: Grayscale imaging of the chest. Targeted ultrasound of the posterior lower right hemithor ax FINDINGS: EXAM MEASUREMENTS: Right Pleural Effusion pocket size: 8.3 cm Right skin surface to fluid distance: 3.4 cm lung tissue visualized 4.7 cm in fluid pocket. Right side marked for possible thoracentesis outside the dept. Pulmonologists are able to review the images in the patient?s EMR. IMPRESSIONS: Small to moderate-sized right-sided pleural effusion is confirmed on images saved which correlates with same day chest x-ray. [facility], , 01/26/2025 1:14 PM
[2025-01-26 13:48] LABS: Appearance,Urine Clear (Clear); Bilirubin,Urine Negative (Negative); Blood,Urine Moderate (Negative); Color,Urine Yellow; Glucose,Urine (UA) Negative (Negative); Ketones,Urine Negative (Negative); Leukocyte Esterase,Urine Trace (Negative); Mucus,Urine Occasional /hpf; Nitrite,Urine Negative (Negative); PH, Urine 5.5 (5.0-8.0); Protein,Urine Trace (Negative); RBC,Urine 22 /hpf (0-5); Specific Gravity,Urine 1.021 (1.001-1.035); Urobilinogen,Urine <2.0 mg/dL (<2.0); WBC,Urine 6 /hpf (0-5)
[2025-01-26 13:59] LABS: Glucose,Whole Blood 132 mg/dL (70-110)
[2025-01-26] MEDS: AMIODARONE 200 MG TAB PO STA (14:11)
[2025-01-26 15:17] LABS: Glucose,Whole Blood 119 mg/dL (70-110)
--- NOTE | 2025-01-26 15:28 | XR ---
EXAMINATION TYPE: XR chest 1V portable DATE OF EXAM: 01/26/2025 CLINICAL INDICATION: Male, 74 years old with history of post right thoracent., progress study. TECHNIQUE: Single AP portable upright view of the chest is obtained. COMPARISON: Chest x-ray from earlier today FINDINGS: Overlying sternal wires and mediastinal clips and left atrial appendage are redemonstrated . Stable left internal jugular [place]-Ava catheter. Left-sided chest tube removed in the interval. Persistent mild cardiomegaly and improved central increased opacities bilaterally. Persistent left ba silar opacity. Improved right-sided pleural effusion after thoracentesis. No pneumothorax seen. Heidrick us structures are intact. IMPRESSION: Improved right-sided pleural effusion after thoracentesis. No pneumothorax is seen. [facility], , 01/26/2025 3:26 PM
[2025-01-26] MEDS: MIDODRINE 5 MG TAB PO SCH (15:51)
[2025-01-26 16:01] LABS: Glucose,Whole Blood 114 mg/dL (70-110)
--- NOTE | 2025-01-26 16:36 | OP ---
OPERATIVE REPORT DATE OF SERVICE : 01/24/2025 PREOPERATIVE DIAGNOSIS: Coronary artery disease. POSTOPERATIVE DIAGNOSIS: Coronary artery disease. OPERATION: 1. Coronary artery bypass grafting x3 vessels (left internal mammary artery to left anterior descending artery, radial artery to obtuse marginal, saphenous vein graft to posterior descending artery). 2. Endoscopic harvest, left greater saphenous vein. 3. Endoscopic harvest, left radial artery. 4. Epiaortic ultrasound. 5. Transesophageal echocardiogram. 6. Ligation of left atrial appendage using 35 mm atrial clip. 7. Graft flow measurements using [employer] system. ASSISTANTS: 1. Yoshi Mayen PA-C. 2. Alpesh aDvalos NP. ANESTHESIA: General. SPECIMEN: None. COMPLICATION: None. INDICATION: The patient is a 74-year-old male with a past medical history significant for coronary disease status post multiple stents, hyperlipidemia, hypertension, myocardial infarction, and mental disability, who developed chest tightness and shortness of breath while at [employer]. EMS was called. He was brought to [facility] Emergency Department for further evaluation. Workup revealed multivessel coronary artery disease. A coronary artery bypass was recommended. The risks, benefits, alternatives to procedure were discussed with the patient. All of his questions were answered. Consent was obtained. FINDINGS: The left internal mammary artery was good, brisk flow. The saphenous vein was good, the radial artery was good. The LAD was heavily diseased and contained calcium throughout its course. Palpable stents were also noted. The vessel measured 1.3 mm. The obtuse marginal artery was heavily diseased with calcium. This measured 1.3 mm. The posterior descending artery measured 1.3 mm. NARRATIVE: The patient was taken to the operating room, placed supine on the operating table. After the induction of anesthesia, he was prepped and draped in the usual sterile fashion. Preoperative transesophageal echocardiogram confirmed ejection fraction about 35%-40% with mild mitral regurgitation and trace to mild aortic insufficiency. There was no clot noted within the left atrial appendage. A median sternotomy was performed. The left internal mammary artery was harvested in the standard fashion. Care was taken to clip all branches. During harvest of this vessel, the patient became hypotensive and bradycardic. His PA pressures increased and his heart became sluggish on echocardiogram. For that reason, I elected to emergently place the patient on a cardiopulmonary bypass. Intravenous heparin was administered. Both aortic and venous cannulas were placed emergently while cardiac massage was performed. The patient was then placed on a cardiopulmonary bypass with good decompression of the heart. At this point, harvest of all conduits was resumed. The left internal mammary artery was transected distally and revealed brisk flow. Simultaneously, a radial artery was harvested in the left upper extremity using endoscopic technique. All branches were tied. In addition, greater saphenous vein was harvested from the left thigh again using endoscopic technique. A pericardial cradle was created. Epiaortic ultrasound was then performed on the ascending aorta. No obvious calcific plaque or atheromatous disease was identified. Both antegrade and retrograde catheters were then placed. The aortic cross-clamp was applied. Cold blood potassium cardioplegia was delivered both antegrade and retrograde fashion to achieve arrest of the heart. Of note, cardioplegia was delivered every 15- 20 minutes with the patient remaining under crossclamp. We began by identifying the left atrial appendage. A 35 mm AtriClip was placed across its base to ensure ligation. Next, attention was turned to the inferior wall. The posterior descending artery was identified, dissected free. A small arteriotomy was created. Using greater saphenous vein in a reverse fashion, end-to-side anastomosis was created. This was performed a running 7-0 Prolene suture. The graft was hemostatic and had great flow. Next, attention was turned lateral. The obtuse marginal artery was identified and dissected free. It contained palpable plaque throughout its course. Beyond its distal bifurcation, there was a soft spot noted. A small arteriotomy was created. Using radial artery, end-to-side anastomosis was created. This was performed using running 7-0 Prolene suture. The graft was hemostatic and had great flow. Finally, attention was turned to the anterior wall. The left anterior descending artery was identified and dissected free. It contained palpable plaque throughout its course. It also contained palpable stents in its mid to early distal regions. Beyond palpable stent, I made a small arteriotomy. Using the left internal mammary artery, end-to-side anastomosis was created. This was performed a running 8-0 Prolene suture. The graft was hemostatic. The mammary pedicle was then tacked down to the anterior surface of the heart. Attention was then turned to the proximal anastomoses. These were both performed in an end-to-side fashion using running 6-0 Prolene suture. Only one was done in a retrograde fashion. Both lidocaine and magnesium were administered as well. The aortic cross-clamp was removed. The vein graft was de-aired in the standard fashion. Distal anastomoses were inspected and it appeared to be hemostatic. Temporary atrial ventricular pacing wires were placed and brought through the skin. The patient was then carefully weaned off cardiopulmonary bypass. It with addition of Levophed and Milrinone. Followup transesophageal echocardiogram confirmed an ejection fraction of 40% with good movement of all left ventricular hewitt. The artery was moving well too. There was no change in valve pathology. Graft flow measurements were performed using the [employer] system. The CHOE to LAD graft had a flow of 150 mL/minute and PA 1.6. The radial artery to obtuse marginal artery had a flow of 60 mL/minute and PA of 2.5. The saphenous vein graft to PDA had a flow 55 mL/minute and PA of 1.4. Protamine was administered. There were no adverse reactions. The remaining cannulas were then removed. The mediastinum was copiously irrigated with warm saline solution. Again, all surgical sites were inspected and noted to be hemostatic. The patient did continue to be using despite inspection and checking of all the grafts. He did receive fresh frozen plasma, platelets, and DDAVP in the operating room. Attention was then turned to closure of the sternum. This was performed using the [place] cable system. The cables were placed in the inferior fashion. At the completion of the closure, the sternum was well aligned. Of note, chest tubes were placed in the left pleural space and mediastinum. A Jeevan drain was placed and directed behind the heart. The wound was then closed in multiple layers. Sterile dressing was applied. The patient appeared to tolerate the procedure and the patient returned to the ICU in critical stable condition. MMODL / IJN: [id number] /
--- NOTE | 2025-01-26 18:44 | P.PN ---
Subjective Progress Note Date: 01/26/25 01/17/2025 this is 74-year-old gentleman, follows with [facility] with past medical history significant for CAD, NH with stents of the circumflex and LAD, morbid obesity, hypertension, hyperlipidemia and multiple other medical issues brought into the ER via EMS from restoration yesterday secondary to complaints of chest pain. Patient reports during restoration he developed midsternal chest pain/tingling, nonradiating accompanied by increased shortness of breath and lightheadedness. Denies nausea, vomiting or diarrhea.denies abdominal pain.Patient responds slowly but appropriate;baseline as per PCP.Does not drive, uses the [facility] [employer] for transportation. Patient was initiated on IV heparin drip related to elevated troponins. EKG reported sinus tachycardia. Troponins 0.090, 3.400. D-dimer WNL, 0.26. Afebrile, normal WBC, hemoglobin 14.6, platelets 255, INR 1. 137, potassium 4 1, bicarb 24, creatinine 0.62, glucose 103, magnesium 1.6. proBNP 1550, TSH 3.740. Viral studies negative. Chest x-ray reported no acute cardiopulmonary disease/process. Currently denies chest pain, palpitations or shortness of breath.Maintaining O2 sats in the high 90s to 100% on room air. 01/18/2025 completed cardiac catheterization yesterday reported severe triple- vessel disease; proximal RCA 70 to 80% stenosis, mid RCA 60% stenosis,Ostium of the PLV 70% and PDA has 50 to 60% stenosis. Circumflex coronary artery 95% ostial stenosis. LAD 80 to 90% stenosis proximally in the ostial portion. LV fu nction/echo pending. Evaluated by cardiothoracic surgery yesterday, felt to be high risk candidate. Brother Arvind at bedside, disclosed that patient had run out of medications, timeframe unknown. Currently denies chest pain, palpitations or shortness of breath. Telemetry sinus rhythm. 01/19/2025 anticoagulated on IV heparin drip. Maintained on beta-trixie, statin and aspirin. Echo results pending. Telemetry sinus rhythm .denies chest pain, palpitations or shortness of breath. Denies lightheadedness dizziness or focal deficits. Incentive spirometer up to 1999. 01/20/2025 Patient evaluated today on the cardiac unit. Sitting up in the chair. No acute complaints. Heparin gtt currently off. Echocardiogram reveals EF 35% with apical, septal and inferior hypokinesis. Trace to mild MR, mild aortic stenosis, mild AR. Patient is being considered for open heart surgery. 01/21/2025 Patient is evaluated today in follow up. He is sitting up in the chair. Having no acute complaints. Remains off IV heparin at this time. He will be going for open heart surgery on Friday. 01/22/2025 Patient is evaluated today in f/u. Patient sitting up in the chair with no acute complaints. Tolerating diet. He is saturating 95% on room air. 01/23/2025 Patient evaluated today in follow up. Reports no acute complaints, denies any chest pressure, chest pain. Denies shortness of breath. Chest xray this morning reveals mild cardiomegaly with new right greater than left acute infiltrates and or edema. He received IV lasix 40 mg dose today. Sodium of 136, potassium 4.1, BUN 16, creatinine 0.70. White blood cell count 7.70, hgb 11.9. Patient is afebrile, heart rate 82, blood pressure 101/59, 95% on 2L of oxygen via nasal cannula. 01/24/2025 Patient going for open heart today and will be moved to the ICU post surgery. Chest xray today reveals mild cardiomegaly, and medium diffuse interstitial opacities which show slight improvement from prior. 01/25/2025 Patient evaluated today in the ICU. Patient is in soft wrist restraints. [place]- shonna catheter was pulled out this AM. It has been replaced. He received 1 unit of PRBC and was started on vasopresors and primacor gtt. Chest tubes x 3 noted. AM chest xray reveals post-CABG changes with residual interstitial pulmonary edema, some the previous patchy changes have improved. Ongoing small right pleural effusion with adjacent atelectasis and or consolidation noted. WBC 10.99, hgb 8.0, sodium 135, BUN 16, creatinine 0.93. 01/26/2025 Patient evaluated in the ICU. He is postoperative day #2 three-vessel cabg. He has been febrile with T-Max 100.6 in the last 24 hours. Chest xray reveal pleural effusion. Patient underwent right sided thoracentesis today 950 mL of fluid off. Also procal was bumped at 0.67. Urinalysis slightly abnormal. Will follow up with CT surgery for antibiotic needs. White blood cell count is 14.13. He remains on IV insulin; with plans to transition to sliding scale tomorrow. Review of Systems Unable to complete a review of systems as patient is confused today PHYSICAL EXAMINATION: GENERAL: The patient is alert and oriented x2-3, not in any acute distress. Well developed, well nourished. HEENT: Pupils are round and equally reacting to light. EOMI. No scleral icterus. No conjunctival pallor. Normocephalic, atraumatic. No pharyngeal erythema. No thyromegaly. CARDIOVASCULAR: S1 and S2 present. No murmurs, rubs, or gallops. PULMONARY: Chest is clear to auscultation, no wheezing or crackles. ABDOMEN: Soft, nontender, nondistended, normoactive bowel sounds. No palpable organomegaly. MUSCULOSKELETAL: No joint swelling or deformity. EXTREMITIES: No cyanosis, clubbing, or pedal edema. Soft wrist restraints in place NEUROLOGICAL: No focal neurological deficits. SKIN: No rashes. Assessment NSTEMI, status post cardiac catheterization reporting triple-vessel disease CAD with history of NH 2017, stenting of circumflex and LAD, current ran out of his medications-states unclear on timeframe. Last refill RX [facility] at [facility] as October 2019. Developmental delay, at baseline per PCP and patient's brother Arvind. Follows with [facility]. Fever; leukocytosis concern for UTI pending urine culture Volume overload status post IV lasix Hypertension Hyperlipidemia Morbid obesity, BMI 33 Plan -Patient is evaluated in the ICU post CABG -Status post thoracentesis -Continue current cardiac medications -Monitor electrolytes and renal function -Follow up with CT surgery for antibiotic need at this time await urine culture -IV insulin running for 48 hours post CABG per CT surgery; and patient can be transitioned to sliding scale insulin tomorrow The impression and plan of care has been dictated by Kandy Che, Nurse Practitioner as directed. Dr. Jesus Alberto MD I have performed a history and physical examination and medical decision making of this patient, discussed the same with the dictator, and agree with the dictators assessment and plan as written, documented as a scribe. Based on total visit time, I have performed more than 50% of this visit. Objective - Vital Signs Vital signs: Vital Signs Temp 100.6 F H 01/26/25 08:00 Pulse 109 H 01/26/25 09:00 Resp 35 H 01/26/25 09:00 BP 116/72 01/26/25 08:30 Pulse Ox 100 01/26/25 09:00 FiO2 50 01/24/25 21:10 Intake & Output 01/25/25 01/26/25 01/26/25 18:59 06:59 18:59 Intake Total 1710.434 708.208 913.202 Output Total 900 515 145 Balance 810.434 193.208 768.202 Weight 102.1 kg 95.7 kg Intake: IV 988 668 175 ACETAMINOPHEN IV (For NPO 300 100 ) 1,000 mg In Empty Bag 1 bag @ 400 mls/hr IVPB Q6HR FERNANDA Rx#:[id number] CO/CI 160 100 18 Pressure 108 108 27 Sodium Chloride 0.9% 1, 420 360 130 000 ml @ 30 mls/hr IV . Q24H FERNANDA Rx#:[id number] Intake, IV Titration 262.434 40.208 8.202 Amount Insulin Regular 100 unit 6.019 4.208 5.202 In Sodium Chloride 0.9% 100 ml @ Per Protocol IV .Q0M FERNANDA Rx#:[id number] Milrinone-D5w Pmx 20 mg 33 36 3 In Dextrose/Water 1 100ml .bag @ 0.1 MCG/KG/MIN 3. 063 mls/hr IV .Q24H FERNANDA Rx#:[id number] Norepinephrine 4 mg In 136.532 Sodium Chloride 0.9% 250 ml @ 0.02 MCG/KG/MIN 7. 536 mls/hr IV .Q24H FERNANDA Rx#:[id number] Vasopressin 20 unit In 36.883 Sodium Chloride 0.9% 50 ml @ 0.03 UNITS/MIN 4.59 mls/hr IV .Q11H7M FERNANDA Rx# :[id number] ceFAZolin 2 gm In 50 Dextrose 5% in Water 50 ml @ 100 mls/hr IVPB Q8HR FERNANDA Rx#:[id number] Oral 100 730 Blood Product 310 Rc As-1 Unit 310 [id number] Other 50 Rc As-1 Unit 50 [id number] Output: Chest Tube Drainage 290 150 50 Left Pleural 190 80 20 Mediastinal 20 10 10 Right/Mediastinal 80 60 20 Urine 610 365 95 Other: Voiding Method Indwelling Catheter Indwelling Catheter ABP, PAP, CO, CI - Last Documented Arterial Blood Pressure 139/45 Pulmonary Artery Pressure 38/13 Cardiac Output 5.3 Cardiac Index 2.5 - Labs CBC & Chem 7: 01/26/25 05:15 01/26/25 05:15 Labs: Abnormal Lab Results - Last 24 Hours (Table) 01/23/25 01/25/25 01/25/25 Range/Units 06:56 11:05 12:00 WBC 10.99 H (4.50-10.00) 10*3/uL RBC 2.50 L (4.40-5.60) 10*6/uL Hgb 8.0 L (13.0-17.0) g/dL Hct 22.9 L (39.6-50.0) % Plt Count 124 L (140-440) 10*3/uL Immature Gran # (0.00-0.04) 10*3/uL Neutrophils # (1.80-7.70) 10*3/uL Eosinophils # (0.04-0.35) 10*3/uL ABG pO2 (83-108) mmHg ABG HCO3 (21-25) mmol/L ABG Total CO2 (19-24) mmol/L ABG O2 Saturation (94-97) % Hemoglobin (13.0-17.5) gm/dL Sodium (137-145) mmol/L Carbon Dioxide (22-30) mmol/L Glucose (74-99) mg/dL POC Glucose (mg/dL) 138 H (70-110) mg/dL Total Bilirubin (0.2-1.3) mg/dL AST (17-59) U/L Total Protein (6.3-8.2) g/dL Albumin (3.5-5.0) g/dL Crossmatch See Detail 01/25/25 01/25/25 01/25/25 Range/Units 12:01 13:17 14:52 WBC (4.50-10.00) 10*3/uL RBC (4.40-5.60) 10*6/uL Hgb (13.0-17.0) g/dL Hct (39.6-50.0) % Plt Count (140-440) 10*3/uL Immature Gran # (0.00-0.04) 10*3/uL Neutrophils # (1.80-7.70) 10*3/uL Eosinophils # (0.04-0.35) 10*3/uL ABG pO2 (83-108) mmHg ABG HCO3 (21-25) mmol/L ABG Total CO2 (19-24) mmol/L ABG O2 Saturation (94-97) % Hemoglobin (13.0-17.5) gm/dL Sodium (137-145) mmol/L Carbon Dioxide (22-30) mmol/L Glucose (74-99) mg/dL POC Glucose (mg/dL) 150 H 140 H 123 H (70-110) mg/dL Total Bilirubin (0.2-1.3) mg/dL AST (17-59) U/L Total Protein (6.3-8.2) g/dL Albumin (3.5-5.0) g/dL Crossmatch 01/25/25 01/25/25 01/25/25 Range/Units 15:01 16:13 17:51 WBC (4.50-10.00) 10*3/uL RBC (4.40-5.60) 10*6/uL Hgb (13.0-17.0) g/dL Hct (39.6-50.0) % Plt Count (140-440) 10*3/uL Immature Gran # (0.00-0.04) 10*3/uL Neutrophils # (1.80-7.70) 10*3/uL Eosinophils # (0.04-0.35) 10*3/uL ABG pO2 <30 L* (83-108) mmHg ABG HCO3 26 H (21-25) mmol/L ABG Total CO2 27 H (19-24) mmol/L ABG O2 Saturation 58.4 L (94-97) % Hemoglobin 7.8 L (13.0-17.5) gm/dL Sodium (137-145) mmol/L Carbon Dioxide (22-30) mmol/L Glucose (74-99) mg/dL POC Glucose (mg/dL) 119 H 123 H (70-110) mg/dL Total Bilirubin (0.2-1.3) mg/dL AST (17-59) U/L Total Protein (6.3-8.2) g/dL Albumin (3.5-5.0) g/dL Crossmatch 01/25/25 01/25/25 01/26/25 Range/Units 19:57 23:05 00:31 WBC (4.50-10.00) 10*3/uL RBC (4.40-5.60) 10*6/uL Hgb (13.0-17.0) g/dL Hct (39.6-50.0) % Plt Count (140-440) 10*3/uL Immature Gran # (0.00-0.04) 10*3/uL Neutrophils # (1.80-7.70) 10*3/uL Eosinophils # (0.04-0.35) 10*3/uL ABG pO2 (83-108) mmHg ABG HCO3 (21-25) mmol/L ABG Total CO2 (19-24) mmol/L ABG O2 Saturation (94-97) % Hemoglobin (13.0-17.5) gm/dL Sodium (137-145) mmol/L Carbon Dioxide (22-30) mmol/L Glucose (74-99) mg/dL POC Glucose (mg/dL) 121 H 114 H 125 H (70-110) mg/dL Total Bilirubin (0.2-1.3) mg/dL AST (17-59) U/L Total Protein (6.3-8.2) g/dL Albumin (3.5-5.0) g/dL Crossmatch 01/26/25 01/26/25 01/26/25 Range/Units 01:51 05:15 05:15 WBC 14.13 H (4.50-10.00) 10*3/uL RBC 2.58 L (4.40-5.60) 10*6/uL Hgb 8.2 L (13.0-17.0) g/dL Hct 24.0 L (39.6-50.0) % Plt Count (140-440) 10*3/uL Immature Gran # 0.07 H (0.00-0.04) 10*3/uL Neutrophils # 11.70 H (1.80-7.70) 10*3/uL Eosinophils # 0.00 L (0.04-0.35) 10*3/uL ABG pO2 (83-108) mmHg ABG HCO3 (21-25) mmol/L ABG Total CO2 (19-24) mmol/L ABG O2 Saturation (94-97) % Hemoglobin (13.0-17.5) gm/dL Sodium 134 L (137-145) mmol/L Carbon Dioxide 21 L (22-30) mmol/L Glucose 114 H (74-99) mg/dL POC Glucose (mg/dL) 122 H (70-110) mg/dL Total Bilirubin 1.7 H (0.2-1.3) mg/dL AST 62 H (17-59) U/L Total Protein 5.4 L (6.3-8.2) g/dL Albumin 3.4 L (3.5-5.0) g/dL Crossmatch 01/26/25 01/26/25 01/26/25 Range/Units 05:16 06:56 08:14 WBC (4.50-10.00) 10*3/uL RBC (4.40-5.60) 10*6/uL Hgb (13.0-17.0) g/dL Hct (39.6-50.0) % Plt Count (140-440) 10*3/uL Immature Gran # (0.00-0.04) 10*3/uL Neutrophils # (1.80-7.70) 10*3/uL Eosinophils # (0.04-0.35) 10*3/uL ABG pO2 (83-108) mmHg ABG HCO3 (21-25) mmol/L ABG Total CO2 (19-24) mmol/L ABG O2 Saturation (94-97) % Hemoglobin (13.0-17.5) gm/dL Sodium (137-145) mmol/L Carbon Dioxide (22-30) mmol/L Glucose (74-99) mg/dL POC Glucose (mg/dL) 125 H 135 H 235 H (70-110) mg/dL Total Bilirubin (0.2-1.3) mg/dL AST (17-59) U/L Total Protein (6.3-8.2) g/dL Albumin (3.5-5.0) g/dL Crossmatch 01/26/25 Range/Units 09:14 WBC (4.50-10.00) 10*3/uL RBC (4.40-5.60) 10*6/uL Hgb (13.0-17.0) g/dL Hct (39.6-50.0) % Plt Count (140-440) 10*3/uL Immature Gran # (0.00-0.04) 10*3/uL Neutrophils # (1.80-7.70) 10*3/uL Eosinophils # (0.04-0.35) 10*3/uL ABG pO2 (83-108) mmHg ABG HCO3 (21-25) mmol/L ABG Total CO2 (19-24) mmol/L ABG O2 Saturation (94-97) % Hemoglobin (13.0-17.5) gm/dL Sodium (137-145) mmol/L Carbon Dioxide (22-30) mmol/L Glucose (74-99) mg/dL POC Glucose (mg/dL) 158 H (70-110) mg/dL Total Bilirubin (0.2-1.3) mg/dL AST (17-59) U/L Total Protein (6.3-8.2) g/dL Albumin (3.5-5.0) g/dL Crossmatch Assessment and Plan Time with Patient: Less than 30
[2025-01-26 18:58] LABS: Glucose,Whole Blood 173 mg/dL (70-110)
[2025-01-26 20:43] LABS: Glucose,Whole Blood 125 mg/dL (70-110)
[2025-01-26] MEDS: AMIODARONE 200 MG TAB PO SCH (21:10)
--- NOTE | 2025-01-26 21:27 | OP ---
OPERATIVE REPORT DATE OF SERVICE : PROCEDURE PERFORMED: Right thoracentesis. PREOPERATIVE DIAGNOSIS: Right pleural effusion. POSTOPERATIVE DIAGNOSIS: Right pleural effusion. FIRST TAXI DRIVER: Arlette Deshpande. There was informed consent and universal timeout. The patient's procedure was done in the ICU, room 266. The right posterior chest was marked by ultrasound. Ultrasound guidance was/was not used and appropriate fluid pocket was identified and marked. Patient was positioned, prepped and draped in usual sterile fashion. Lidocaine was used to anesthetize the area. A Thoracentesis catheter was introduced into the pleural space and fluid was removed. Blood loss was none. 950 mL of bloody fluid was removed from the right pleural space. The patient tolerated the procedure well. The fluid will not be sent for analysis. A chest x-ray will be ordered after the thoracentesis. There was no immediate complication. The patient was stable throughout the procedure. MMODL / IJN: [id number] /
[2025-01-27 01:19] LABS: Glucose,Whole Blood 117 mg/dL (70-110)
[2025-01-27] MEDS: ALBUMIN HUMAN 5% 250 ML in EMPTY BAG 1 BAG IVPB STA (02:49)
[2025-01-27 03:24] LABS: Basophils # (A) 0.05 10*3/uL (0.00-0.10); Basophils % (A) 0.4 %; Eosinophils # (A) 0.02 10*3/uL (0.04-0.35); Eosinophils % (A) 0.2 %; HCT 21.9 % (39.6-50.0); HGB 7.6 g/dL (13.0-17.0); Immature Platelet Fraction 4.2 % (1.1-6.1); Lymphocytes # (A) 1.97 10*3/uL (0.90-5.00); Lymphocytes % (A) 16.5 %; MCH 32.2 pg (27.0-32.0); MCHC 34.7 g/dL (32.0-37.0); MCV 92.8 fL (80.0-97.0); Mean Platelet Volume 10.7 fL (9.5-12.2); Monocytes # (A) 0.79 10*3/uL (0.20-1.00); Monocytes % (A) 6.6 %; Neutrophils # (A) 9.05 10*3/uL (1.80-7.70); Neutrophils % (A) 75.7 %; Platelet Count 135 10*3/uL (140-440); RBC 2.36 10*6/uL (4.40-5.60); RDW 15.2 % (11.5-14.5); WBC 11.95 10*3/uL (4.50-10.00)
[2025-01-27 03:34] LABS: ALT 76 U/L (4-49); AST 106 U/L (17-59); African American GFR (CKD) >90 (>60 ml/min/1.73 sqM); Albumin 2.9 g/dL (3.5-5.0); Alkaline Phosphatase 94 U/L (38-126); Anion Gap 10 mmol/L; Blood Urea Nitrogen 26 mg/dL (9-20); Calcium 8.7 mg/dL (8.4-10.2); Carbon Dioxide 21 mmol/L (22-30); Chloride 100 mmol/L (98-107); Glucose 100 mg/dL (74-99); Non-African American GFR(CKD) 86 (>60 ml/min/1.73 sqM); Potassium 4.3 mmol/L (3.5-5.1); Sodium 131 mmol/L (137-145); Total Bilirubin 1.3 mg/dL (0.2-1.3)
--- NOTE | 2025-01-27 06:05 | XR ---
EXAMINATION TYPE: XR chest 1V portable DATE OF EXAM: 01/27/2025 CLINICAL INDICATION: Male, 74 years old with history of [place] Ava catheter placement, progress study. TECHNIQUE: Single AP portable upright view of the chest is obtained. COMPARISON: Chest x-ray from one day earlier FINDINGS: Overlying sternal wires and mediastinal clips and left atrial appendage are redemonstrated . Stable left internal jugular [place]-Ava catheter. Persistent mild cardiomegaly and moderate central increased opacities bilaterally. Small bilateral pl eural effusions remain present. Osseous structures are intact. IMPRESSION: Findings suggests continued CHF exacerbation/fluid overload state. [facility], , 01/27/2025 6:02 AM
[2025-01-27 07:10] LABS: Glucose,Whole Blood 80 mg/dL (70-110)
[2025-01-27 08:14] LABS: Glucose,Whole Blood 92 mg/dL (70-110)
[2025-01-27] MEDS: ALBUMIN HUMAN 25% 50 ML in EMPTY BAG 1 BAG IVPB ONE (09:22)
--- NOTE | 2025-01-27 09:39 | P.PN ---
Subjective Progress Note Date: 01/27/25 Principal diagnosis: Multivessel coronary artery disease, non-ST elevated myocardial infarction this admission. Past medical history significant for coronary artery disease with m yocardial infarction and previous stent placement to his circumflex coronary artery and left anterior descending coronary artery in August 2017, hypertension, hyperlipidemia, obesity, lifetime non-smoker. POD #3 coronary artery bypass graft x 3 with left internal mammary artery to the left anterior descending artery, left radial artery to the obtuse marginal artery, reverse saphenous vein graft to the posterior descending artery, endoscopic vein harvesting of the left greater saphenous vein, endoscopic harvesting of the left radial artery, ligation of the left atrial appendage with a 35 mm AtriClip, epiaortic ultrasound, intraoperative transesophageal echocardiogram, graft flow measurements using the gdgt stim system Acute blood loss anemia, expected given hemodilution and cardiopulmonary bypass pump. Hypotension, somewhat expected due to vasoplegia as well as acute blood loss. Right pleural effusion, status post right thoracentesis performed by Dr. Osborne from pulmonary medicine. Postoperative paroxysmal atrial fibrillation, a known common occurrence after cardiac surgery. The patient was seen and examined in follow-up today January 27, 2025 at his bedside in the intensive care unit. He is currently sitting up to the bedside chair, is awake, alert, oriented x 3 and is in no acute apparent distress. He denies any complaints of shortness of breath or pain at this time, and is tolerating his breakfast. He remains slow to respond which is normal for him. Oxygen saturations are 95% on room air and he is achieving 1000 mL on his incentive spirometry with encouragement. Bedside telemetry is showing normal sinus rhythm heart rate 84 bpm, no further episodes of atrial fibrillation have been reported. Patient did have an episode of paroxysmal atrial fibrillation yesterd ay which was self-limiting and lasted for only a few minutes. Right IJ cordis and [place]-Ava catheter in place with current hemodynamics showing a cardiac output of 3.4, cardiac index 1.6, SVR 1175, PA pressures 38/16 and CVP is 8 mmHg. The patient's chest tubes were removed yesterday without incident. Atrial and ventricular epicardial pacemaker wires remain in place and are connected to bedside backup pacemaker generator on a VVI of 50 BPM. Chest x-ray and laboratory results reviewed. Objective - Vital Signs Vital signs: Vital Signs Temp 98.1 F 01/27/25 08:00 Pulse 80 01/27/25 08:00 Resp 28 H 01/27/25 08:00 BP 95/52 01/27/25 08:00 Pulse Ox 100 01/27/25 08:00 FiO2 50 01/24/25 21:10 Intake & Output 01/26/25 01/27/25 01/27/25 18:59 06:59 18:59 Intake Total 2133.151 541.298 149 Output Total 410 235 60 Balance 1723.151 306.298 89 Weight 95.6 kg Intake: IV 685 539 149 ACETAMINOPHEN IV (For NPO 100 ) 1,000 mg In Empty Bag 1 bag @ 400 mls/hr IVPB Q6HR [facility] Rx#:[id number] CO/CI 38 Pressure 117 99 9 Sodium Chloride 0.9% 1, 530 440 40 000 ml @ 30 mls/hr IV . Q24H [facility] Rx#:[id number] Intake, IV Titration 238.151 2.298 Amount Albumin Human 25% 50 ml 50 In Empty Bag 1 bag @ 50 mls/hr IVPB ONCE ONE Rx#: [id number] Calcium Gluconate in NaCl 100 1 gm In Saline 1 100ml. bag @ 100 mls/hr IVPB ONCE ONE Rx#:[id number] Insulin Regular 100 unit 6.330 2.298 In Sodium Chloride 0.9% 100 ml @ Per Protocol IV .Q0M [facility] Rx#:[id number] Milrinone-D5w Pmx 20 mg 81.821 In Dextrose/Water 1 100ml .bag @ 0.1 MCG/KG/MIN 3. 063 mls/hr IV .Q24H [facility] Rx#:[id number] Oral 1210 Output: Chest Tube Drainage 50 Left Pleural 20 Mediastinal 10 Right/Mediastinal 20 Urine 360 235 60 Other: Voiding Method Indwelling Catheter Indwelling Catheter ABP, PAP, CO, CI - Last Documented Arterial Blood Pressure 102/69 Pulmonary Artery Pressure 42/13 Cardiac Output 3.4 Cardiac Index 1.6 - Exam CONSTITUTIONAL: Appears somewhat comfortable, and cooperative. RESPIRATORY: Lungs sounds diminished to his bilateral bases. Respirations symmetrical, nonlabored. Currently on room air with oxygen saturation 95%. Achieving 750-1000 mL on his incentive spirometry with encouragement. Strong cough. CARDIOVASCULAR: S1, S2 present. Regular rate and rhythm, normal sinus rhythm on telemetry, heart rate 84 bpm. Sternum stable. Palpable peripheral pulses bilaterally. Generalized +1 edema present. No calf pain or tenderness noted. Heart hugger, antiembolism stockings, SCDs present. GASTROINTESTINAL: Abdomen soft, nontender, nondistended. Active bowel sounds present 4 quadrants. Passing flatus. Tolerating clear liquid diet. GENITOURINARY: Porter present draining clear, yellow urine. Urine output 220 mL in the last 8 hours. INTEGUMENTARY: Skin is warm and dry, no clubbing or cyanosis is present. Midline sternal incision well approximated and covered with intact dressing. Left radial artery harvest site as well as left lower extremity EVH site well approximated without redness or drainage. NEUROLOGIC: Cranial nerves II through XII intact. No focal deficits. MUSKULOSKELETAL: Able to move all extremities, strength equal bilaterally, generalized weakness. PSYCHIATRIC: Alert, slow to respond to questions, oriented to person, place and time, does follow commands, moves all extremities. INVASIVE LINES AND TUBES: Atrial and ventricular epicardial pacemaker wires present, connected to generator, backup rate 50 bpm. Left internal jugular [place]ord[place], right radial arterial line present. Last CO/CI 3.4/1.6, SVR 1175, PA 38/16, CVP 8. - Allied health notes Allied health notes reviewed: nursing - Labs CBC & Chem 7: 01/27/25 03:10 01/27/25 03:10 Labs: Abnormal Lab Results - Last 24 Hours (Table) 01/26/25 01/26/25 01/26/25 Range/Units 05:15 09:14 10:26 WBC (4.50-10.00) 10*3/uL RBC (4.40-5.60) 10*6/uL Hgb (13.0-17.0) g/dL Hct (39.6-50.0) % MCH (27.0-32.0) pg Plt Count (140-440) 10*3/uL Immature Gran # (0.00-0.04) 10*3/uL Neutrophils # (1.80-7.70) 10*3/uL Eosinophils # (0.04-0.35) 10*3/uL ABG pH (7.35-7.45) ABG pCO2 (35-45) mmHg ABG pO2 <30 L* (83-108) mmHg ABG Total CO2 25 H (19-24) mmol/L ABG O2 Saturation 56.4 L (94-97) % Hemoglobin 8.2 L (13.0-17.5) gm/dL Sodium (137-145) mmol/L Carbon Dioxide (22-30) mmol/L BUN (9-20) mg/dL Glucose (74-99) mg/dL POC Glucose (mg/dL) 158 H (70-110) mg/dL AST (17-59) U/L ALT (4-49) U/L Total Protein (6.3-8.2) g/dL Albumin (3.5-5.0) g/dL Procalcitonin 0.67 H (0.02-0.50) ng/mL Urine Protein (Negative) Urine Blood (Negative) Ur Leukocyte Esterase (Negative) Urine RBC (0-5) /hpf Urine WBC (0-5) /hpf Urine Mucus (None) /hpf 01/26/25 01/26/25 01/26/25 Range/Units 10:27 13:11 13:25 WBC (4.50-10.00) 10*3/uL RBC (4.40-5.60) 10*6/uL Hgb (13.0-17.0) g/dL Hct (39.6-50.0) % MCH (27.0-32.0) pg Plt Count (140-440) 10*3/uL Immature Gran # (0.00-0.04) 10*3/uL Neutrophils # (1.80-7.70) 10*3/uL Eosinophils # (0.04-0.35) 10*3/uL ABG pH 7.49 H (7.35-7.45) ABG pCO2 29 L (35-45) mmHg ABG pO2 79 L (83-108) mmHg ABG Total CO2 (19-24) mmol/L ABG O2 Saturation 97.7 H (94-97) % Hemoglobin 8.1 L (13.0-17.5) gm/dL Sodium (137-145) mmol/L Carbon Dioxide (22-30) mmol/L BUN (9-20) mg/dL Glucose (74-99) mg/dL POC Glucose (mg/dL) 117 H (70-110) mg/dL AST (17-59) U/L ALT (4-49) U/L Total Protein (6.3-8.2) g/dL Albumin (3.5-5.0) g/dL Procalcitonin (0.02-0.50) ng/mL Urine Protein Trace H (Negative) Urine Blood Moderate H (Negative) Ur Leukocyte Esterase Trace H (Negative) Urine RBC 22 H (0-5) /hpf Urine WBC 6 H (0-5) /hpf Urine Mucus Occasional H (None) /hpf 01/26/25 01/26/25 01/26/25 Range/Units 13:58 15:16 16:00 WBC (4.50-10.00) 10*3/uL RBC (4.40-5.60) 10*6/uL Hgb (13.0-17.0) g/dL Hct (39.6-50.0) % MCH (27.0-32.0) pg Plt Count (140-440) 10*3/uL Immature Gran # (0.00-0.04) 10*3/uL Neutrophils # (1.80-7.70) 10*3/uL Eosinophils # (0.04-0.35) 10*3/uL ABG pH (7.35-7.45) ABG pCO2 (35-45) mmHg ABG pO2 (83-108) mmHg ABG Total CO2 (19-24) mmol/L ABG O2 Saturation (94-97) % Hemoglobin (13.0-17.5) gm/dL Sodium (137-145) mmol/L Carbon Dioxide (22-30) mmol/L BUN (9-20) mg/dL Glucose (74-99) mg/dL POC Glucose (mg/dL) 132 H 119 H 114 H (70-110) mg/dL AST (17-59) U/L ALT (4-49) U/L Total Protein (6.3-8.2) g/dL Albumin (3.5-5.0) g/dL Procalcitonin (0.02-0.50) ng/mL Urine Protein (Negative) Urine Blood (Negative) Ur Leukocyte Esterase (Negative) Urine RBC (0-5) /hpf Urine WBC (0-5) /hpf Urine Mucus (None) /hpf 01/26/25 01/26/25 01/27/25 Range/Units 18:57 20:42 01:18 WBC (4.50-10.00) 10*3/uL RBC (4.40-5.60) 10*6/uL Hgb (13.0-17.0) g/dL Hct (39.6-50.0) % MCH (27.0-32.0) pg Plt Count (140-440) 10*3/uL Immature Gran # (0.00-0.04) 10*3/uL Neutrophils # (1.80-7.70) 10*3/uL Eosinophils # (0.04-0.35) 10*3/uL ABG pH (7.35-7.45) ABG pCO2 (35-45) mmHg ABG pO2 (83-108) mmHg ABG Total CO2 (19-24) mmol/L ABG O2 Saturation (94-97) % Hemoglobin (13.0-17.5) gm/dL Sodium (137-145) mmol/L Carbon Dioxide (22-30) mmol/L BUN (9-20) mg/dL Glucose (74-99) mg/dL POC Glucose (mg/dL) 173 H 125 H 117 H (70-110) mg/dL AST (17-59) U/L ALT (4-49) U/L Total Protein (6.3-8.2) g/dL Albumin (3.5-5.0) g/dL Procalcitonin (0.02-0.50) ng/mL Urine Protein (Negative) Urine Blood (Negative) Ur Leukocyte Esterase (Negative) Urine RBC (0-5) /hpf Urine WBC (0-5) /hpf Urine Mucus (None) /hpf 01/27/25 01/27/25 Range/Units 03:10 03:10 WBC 11.95 H (4.50-10.00) 10*3/uL RBC 2.36 L (4.40-5.60) 10*6/uL Hgb 7.6 L (13.0-17.0) g/dL Hct 21.9 L (39.6-50.0) % MCH 32.2 H (27.0-32.0) pg Plt Count 135 L (140-440) 10*3/uL Immature Gran # 0.07 H (0.00-0.04) 10*3/uL Neutrophils # 9.05 H (1.80-7.70) 10*3/uL Eosinophils # 0.02 L (0.04-0.35) 10*3/uL ABG pH (7.35-7.45) ABG pCO2 (35-45) mmHg ABG pO2 (83-108) mmHg ABG Total CO2 (19-24) mmol/L ABG O2 Saturation (94-97) % Hemoglobin (13.0-17.5) gm/dL Sodium 131 L (137-145) mmol/L Carbon Dioxide 21 L (22-30) mmol/L BUN 26 H (9-20) mg/dL Glucose 100 H (74-99) mg/dL POC Glucose (mg/dL) (70-110) mg/dL AST 106 H (17-59) U/L ALT 76 H (4-49) U/L Total Protein 5.0 L (6.3-8.2) g/dL Albumin 2.9 L (3.5-5.0) g/dL Procalcitonin (0.02-0.50) ng/mL Urine Protein (Negative) Urine Blood (Negative) Ur Leukocyte Esterase (Negative) Urine RBC (0-5) /hpf Urine WBC (0-5) /hpf Urine Mucus (None) /hpf - Imaging and Cardiology Chest x-ray: report reviewed, image reviewed Assessment and Plan Assessment: Multivessel coronary artery disease, non-ST elevated myocardial infarction this admission status post three-vessel CABG Acute blood loss anemia, expected given hemodilution and cardiopulmonary bypass pump Hypotension, somewhat expected due to vasoplegia as well as acute blood loss, resolved Postoperative paroxysmal atrial fibrillation, a known common occurrence after cardiac surgery Right pleural effusion, status post right thoracentesis History of coronary artery disease with myocardial infarction and previous stent placement to Cx and LAD in August 2017 Hypertension Hyperlipidemia, cholesterol 174, LDL 100.8, triglycerides 139 Obesity Lifetime non-smoker Developmental delay Plan: Continue to maximize medical therapy with aspirin, statin, Plavix and beta- trixie. Continue metoprolol to tartrate 12.5 mg p.o. twice daily with hold parameters. Encourage incentive spirometry use 10 times every hour while awake. Bronchodilators per pulmonology. Will monitor daily labs and chest x-rays. Electrolyte replacement per protocol. Increase activity as tolerated. PT/OT/cardiac rehab following. Send ABG and mixed venous gas now. GI/DVT prophylaxis. Continue [place] for another 24 hours. Continue Porter catheter for another 24 hours, continue to monitor strict accurate intake and output. Insulin management per internal medicine. Patient is not diabetic, preoperative hemoglobin A1c 5.4%. Patient should remain on continuous IV insulin for 48 hours, then may transition to subcutaneous per protocol Pain control per current medication regimen. Albumin 25% IV piggyback x 1 now 50 mL. Calcium gluconate 1 g IV piggyback x 1 now. Keep in the intensive care unit. More recommendations to follow based on patient's clinical course Time with Patient: Greater than 30
[2025-01-27 09:43] LABS: ABG Base Excess -2.8 mmol/L; ABG HCO3 21 mmol/L (21-25); ABG Oxygen Saturation 99.6 % (94-97); ABG PCO2 29 mmHg (35-45); ABG PH 7.46 (7.35-7.45); ABG PO2 122 mmHg (83-108); ABG TCO2 22 mmol/L (19-24); Allen Test Performed? Yes
[2025-01-27 09:49] LABS: ABG Base Excess -1.1 mmol/L; ABG HCO3 24 mmol/L (21-25); ABG Oxygen Saturation 31.2 % (94-97); ABG PCO2 39 mmHg (35-45); ABG PH 7.39 (7.35-7.45); ABG TCO2 25 mmol/L (19-24); Allen Test Performed? Yes
[2025-01-27 09:52] LABS: ABG PO2 <30 mmHg (83-108)
[2025-01-27 10:05] LABS: Glucose,Whole Blood 131 mg/dL (70-110)
[2025-01-27] MEDS: MILRINONE-D5W PMX 20 MG in DEXTROSE/WATER 1 100ML.BAG IV SCH (10:12)
[2025-01-27] MEDS: CALCIUM GLUCONATE IN NACL 1 GM in SALINE 1 100ML.BAG IVPB ONE (10:12)
[2025-01-27 12:08] LABS: Glucose,Whole Blood 101 mg/dL (70-110)
--- NOTE | 2025-01-27 12:10 | P.PN ---
Subjective Progress Note Date: 01/27/25 This is a 74-year-old white male known history of coronary artery disease, previous stenting of circumflex and LAD, known history of hypertension, dyslipidemia, patient presented to the hospital on 01/16 with chest pain suggestive of acute coronary syndrome. Patient was seen by cardiology and he was felt to have non-ST elevation myocardial infarction started patient initially on heparin aspirin atorvastatin and metoprolol. Patient underwent cardiac catheterization, he was found to have multivessel coronary artery disease, seen by cardiothoracic surgery on consultation, and the plan is to proceed with myocardial revascularization. Workup so far included CT of the chest, it showed no acute thoracic process, it also showed nonspecific pulmonary nodules measuring up to 4 mm, and he was found to have cholelithiasis. Patient states that he is quite active, patient walks on a daily basis, and he never smoked. Denies any cough wheezing shortness of breath. Denies any fever or chills or hemoptysis. Going back to his cardiac catheterization, it showed three-vessel coronary artery disease with 80 to 90% stenosis of the LAD, 95% stenosis to the ostial circumflex coronary artery 70 to 80% stenosis to the ostium of the PLV coronary artery and 50 to 60% to the PDA coronary artery. Seen today on 01/22/2025, patient is now scheduled for myocardial revascularization on Friday. Doing well, asymptomatic, achieving over 1500 cc on incentive spirometry, not in any distress no cough no wheezing no shortness of breath, electrolytes are normal renal profile is normal CBC is normal Patient was seen today on 01/23/2025, patient is resting in bed, does not seem to be in any distress, supposed to undergo myocardial revascularization tomorrow. Patient did develop some component of pulmonary edema as noted on his follow-up chest x-ray, received diuretics/Lasix, and seems to be clinically better. Baseline FEV1 is 61%, The patient is seen today January 24, 2025 in follow-up in the intensive care unit. He is now status post coronary artery bypass grafting with a CHOE to the LAD RHA to the OM, SVG to the PDA and left atrial appendage clipping. Currently on the mechanical ventilator and assist-control mode at a rate of 16, tidal volume 500 and FiO2 100% and a PEEP of 10. Arterial blood gases revealed a PaO2 of 367, [id number] and a pH of 7.38. He is currently on a nitroglycerin drip at 5 mcg/min. 7 5 mcg/kg/min. Norepinephrine at 0.07 mcg/kg/min. Propofol at 20 mcg/kg/min. Normal saline at 50 mL/h. He has a right, left and mediastinal chest tube in place. Cardiac output 4.4. Cardiac index 2.1. PA pressure 26/12. He did receive 2 units of fresh frozen plasma and 1 albumin since his return from the OR. White count 9.8. Hemoglobin 7.0. Platelets 106. Sodium 135. Potassium 4.4. Bicarb 23. BUN 14. Creatinine 0.62. Glucose 116. He is initiated on DuoNeb ventilations. Heparin for DVT prophylaxis. The patient is seen today January 25, 2025 in follow-up in the intensive care unit. He is was extubated last evening at 22:15. Currently maintaining O2 saturations in the high 90s on 6 L high flow nasal cannula. Core temperature 100.6. Slightly tachycardic at 114. Blood pressure 134/51. PA pressure 46/28. CVP 16. Cardiac output 5.6. Cardiac index 2.7. Vasopressin and norepinephrine have been weaned off. He remains on Primacor at 0.1 mcg/kg/min. Insulin drip at 1 unit/h. Normal saline at 50 mL/h. Remains on bronchodilators. Remains on heparin for DVT prophylaxis. He inadvertently pulled out his Bellona-Ava catheter earlier this morning. This was replaced by anesthesia. Arterial blood gases revealed a PaO2 of 70, PCO2 of 34, pH 7.43. Chest x-ray revealed postoperative changes, mild pulmonary edema. Small right pleural effusion. Right, left and mediastinal chest tubes remain in place. Pacer wires remain in place. Status post 2 units of packed red blood cells, 2 units of fresh frozen plasma, 1 unit of platelets. Lites 103. Sodium 135. Potassium 4.0. Bicarb 24. BUN 16. Creatinine 0.63. Glucose 119. Albumin 3.3. The patient is seen today January 26, 2025 in follow-up in the intensive care unit. He is currently sitting up in bed. Awake and alert in no acute distress. He is maintaining O2 saturations in the 90s on room air oxygen. He is pulling only about 750 to 1000 mL on the incentive spirometer. He remains on insulin drip at 1 unit/h. Primacor drip at 0.1 mcg/kg/min. Normal saline at 50 mL/h. Right, left, mediastinal chest tubes remain in place. Cardiac output 5.3. Cardiac index 2.5. PA pressure 42/17. CVP 8. Core temperature 100.6. Chest x-ray reveals cardiomegaly with small right pleural effusion and bilateral venous congestion. He is status post 2 units of packed red blood cells, 2 units of fresh frozen plasma, 1 unit of platelets. White count 14.1. Hemoglobin 8.2. Platelets 145. Sodium 134. Potassium 4.1. Bicarb 21. BUN 19. Creatinine 0.70. Glucose 114. He remains on DuoNeb inhalations. Heparin for DVT prophylaxis. The patient is seen today January 27, 2025 in follow-up in the intensive care unit. He is currently up in a chair at the bedside. Awake and alert in no acute distress. Maintaining O2 saturations in the 90s on 2 L/min per nasal cannula. Today's chest x-ray improvement post right sided thoracentesis yesterday. 1 L of bloody fluid returned. Blood gases revealed a PaO2 of 122. pCO2 29 pH 7.46 on 30% FiO2. 2 units of packed red blood cells. 2 units of fresh frozen plasma. 1 unit of platelets. 6. Platelets 135. Sodium 131. Potassium 4.3. Bicarb 21. BUN 26. Creatinine 0.83. Glucose 131. Well. PA pressure 37/14. CVP 7. Cardiac output 3.4. Cardiac index 1.6. Chest tubes have been removed. Pacer wires in place with backup pacing VVI at 50 bpm. Left Bellona-Ava internal jugular catheter remains in place. Objective - Vital Signs Vital signs: Vital Signs Temp 99.1 F 01/27/25 11:46 Pulse 78 01/27/25 11:46 Resp 16 01/27/25 11:46 BP 124/45 01/27/25 11:46 Pulse Ox 95 01/27/25 11:46 FiO2 50 01/24/25 21:10 Intake & Output 01/26/25 01/27/25 01/27/25 18:59 06:59 18:59 Intake Total 2133.151 361.401 2169 Output Total 410 235 180 Balance 1723.151 306.298 825 Weight 95.6 kg Intake: IV 685 539 505 ACETAMINOPHEN IV (For NPO 100 ) 1,000 mg In Empty Bag 1 bag @ 400 mls/hr IVPB Q6HR [facility] Rx#:[id number] Albumin Human 25% 50 ml 50 In Empty Bag 1 bag @ 50 mls/hr IVPB ONCE ONE Rx#: [id number] CO/CI 38 10 Calcium Gluconate in NaCl 100 1 gm In Saline 1 100ml. bag @ 100 mls/hr IVPB ONCE ONE Rx#:[id number] Pressure 117 99 45 Sodium Chloride 0.9% 1, 530 440 200 000 ml @ 30 mls/hr IV . Q24H [facility] Rx#:[id number] Intake, IV Titration 238.151 2.298 Amount Albumin Human 25% 50 ml 50 In Empty Bag 1 bag @ 50 mls/hr IVPB ONCE ONE Rx#: [id number] Calcium Gluconate in NaCl 100 1 gm In Saline 1 100ml. bag @ 100 mls/hr IVPB ONCE ONE Rx#:[id number] Insulin Regular 100 unit 6.330 2.298 In Sodium Chloride 0.9% 100 ml @ Per Protocol IV .Q0M [facility] Rx#:[id number] Milrinone-D5w Pmx 20 mg 81.821 In Dextrose/Water 1 100ml .bag @ 0.1 MCG/KG/MIN 3. 063 mls/hr IV .Q24H [facility] Rx#:[id number] Oral 1210 500 Blood Product 0 Unit 0 Output: Chest Tube Drainage 50 Left Pleural 20 Mediastinal 10 Right/Mediastinal 20 Urine 360 235 180 Other: Voiding Method Indwelling Catheter Indwelling Catheter Indwelling Catheter ABP, PAP, CO, CI - Last Documented Arterial Blood Pressure 114/43 Pulmonary Artery Pressure 37/14 Cardiac Output 3.4 Cardiac Index 1.6 - Exam GENERAL EXAM: Alert, 74-year-old male, on 2 L nasal cannula, up in a chair, comfortable in no acute distress HEAD: Normocephalic. EYES: Normal reaction of pupils, equal size. NOSE: Clear with pink turbinates. THROAT: No erythema or exudates. NECK: Left IJ Bellona-Ava catheter in place. No masses, no JVD. CHEST: Sternal dressing dry and intact. Heart hugger in place. Pacer wires in place. LUNGS: Equal air entry with few scattered rhonchi, crackles in the right lung base. CVS: S1 and S2 normal with no audible murmur, regular rhythm. ABDOMEN: No hepatosplenomegaly, no guarding or rigidity. SPINE: No scoliosis or deformity SKIN: No rashes CENTRAL NERVOUS SYSTEM: Sedated, tone is normal in all 4 extremities. EXTREMITIES: Bilateral lower extremities with SERENITY hose, SCDs. Peripheral pulses are intact. - Labs CBC & Chem 7: 01/27/25 03:10 01/27/25 03:10 Labs: Abnormal Lab Results - Last 24 Hours (Table) 01/26/25 01/26/25 01/26/25 Range/Units 05:15 10:26 10:27 WBC (4.50-10.00) 10*3/uL RBC (4.40-5.60) 10*6/uL Hgb (13.0-17.0) g/dL Hct (39.6-50.0) % MCH (27.0-32.0) pg Plt Count (140-440) 10*3/uL Immature Gran # (0.00-0.04) 10*3/uL Neutrophils # (1.80-7.70) 10*3/uL Eosinophils # (0.04-0.35) 10*3/uL ABG pH 7.49 H (7.35-7.45) ABG pCO2 29 L (35-45) mmHg ABG pO2 <30 L* 79 L (83-108) mmHg ABG Total CO2 25 H (19-24) mmol/L ABG O2 Saturation 56.4 L 97.7 H (94-97) % Hemoglobin 8.2 L 8.1 L (13.0-17.5) gm/dL Sodium (137-145) mmol/L Carbon Dioxide (22-30) mmol/L BUN (9-20) mg/dL Glucose (74-99) mg/dL POC Glucose (mg/dL) (70-110) mg/dL Plasma Lactic Acid Ramon (0.7-2.0) mmol/L AST (17-59) U/L ALT (4-49) U/L Total Protein (6.3-8.2) g/dL Albumin (3.5-5.0) g/dL Procalcitonin 0.67 H (0.02-0.50) ng/mL Urine Protein (Negative) Urine Blood (Negative) Ur Leukocyte Esterase (Negative) Urine RBC (0-5) /hpf Urine WBC (0-5) /hpf Urine Mucus (None) /hpf Crossmatch 01/26/25 01/26/25 01/26/25 Range/Units 13:11 13:25 13:58 WBC (4.50-10.00) 10*3/uL RBC (4.40-5.60) 10*6/uL Hgb (13.0-17.0) g/dL Hct (39.6-50.0) % MCH (27.0-32.0) pg Plt Count (140-440) 10*3/uL Immature Gran # (0.00-0.04) 10*3/uL Neutrophils # (1.80-7.70) 10*3/uL Eosinophils # (0.04-0.35) 10*3/uL ABG pH (7.35-7.45) ABG pCO2 (35-45) mmHg ABG pO2 (83-108) mmHg ABG Total CO2 (19-24) mmol/L ABG O2 Saturation (94-97) % Hemoglobin (13.0-17.5) gm/dL Sodium (137-145) mmol/L Carbon Dioxide (22-30) mmol/L BUN (9-20) mg/dL Glucose (74-99) mg/dL POC Glucose (mg/dL) 117 H 132 H (70-110) mg/dL Plasma Lactic Acid Ramon (0.7-2.0) mmol/L AST (17-59) U/L ALT (4-49) U/L Total Protein (6.3-8.2) g/dL Albumin (3.5-5.0) g/dL Procalcitonin (0.02-0.50) ng/mL Urine Protein Trace H (Negative) Urine Blood Moderate H (Negative) Ur Leukocyte Esterase Trace H (Negative) Urine RBC 22 H (0-5) /hpf Urine WBC 6 H (0-5) /hpf Urine Mucus Occasional H (None) /hpf Crossmatch 01/26/25 01/26/25 01/26/25 Range/Units 15:16 16:00 18:57 WBC (4.50-10.00) 10*3/uL RBC (4.40-5.60) 10*6/uL Hgb (13.0-17.0) g/dL Hct (39.6-50.0) % MCH (27.0-32.0) pg Plt Count (140-440) 10*3/uL Immature Gran # (0.00-0.04) 10*3/uL Neutrophils # (1.80-7.70) 10*3/uL Eosinophils # (0.04-0.35) 10*3/uL ABG pH (7.35-7.45) ABG pCO2 (35-45) mmHg ABG pO2 (83-108) mmHg ABG Total CO2 (19-24) mmol/L ABG O2 Saturation (94-97) % Hemoglobin (13.0-17.5) gm/dL Sodium (137-145) mmol/L Carbon Dioxide (22-30) mmol/L BUN (9-20) mg/dL Glucose (74-99) mg/dL POC Glucose (mg/dL) 119 H 114 H 173 H (70-110) mg/dL Plasma Lactic Acid Ramon (0.7-2.0) mmol/L AST (17-59) U/L ALT (4-49) U/L Total Protein (6.3-8.2) g/dL Albumin (3.5-5.0) g/dL Procalcitonin (0.02-0.50) ng/mL Urine Protein (Negative) Urine Blood (Negative) Ur Leukocyte Esterase (Negative) Urine RBC (0-5) /hpf Urine WBC (0-5) /hpf Urine Mucus (None) /hpf Crossmatch 01/26/25 01/27/25 01/27/25 Range/Units 20:42 01:18 03:10 WBC 11.95 H (4.50-10.00) 10*3/uL RBC 2.36 L (4.40-5.60) 10*6/uL Hgb 7.6 L (13.0-17.0) g/dL Hct 21.9 L (39.6-50.0) % MCH 32.2 H (27.0-32.0) pg Plt Count 135 L (140-440) 10*3/uL Immature Gran # 0.07 H (0.00-0.04) 10*3/uL Neutrophils # 9.05 H (1.80-7.70) 10*3/uL Eosinophils # 0.02 L (0.04-0.35) 10*3/uL ABG pH (7.35-7.45) ABG pCO2 (35-45) mmHg ABG pO2 (83-108) mmHg ABG Total CO2 (19-24) mmol/L ABG O2 Saturation (94-97) % Hemoglobin (13.0-17.5) gm/dL Sodium (137-145) mmol/L Carbon Dioxide (22-30) mmol/L BUN (9-20) mg/dL Glucose (74-99) mg/dL POC Glucose (mg/dL) 125 H 117 H (70-110) mg/dL Plasma Lactic Acid Ramon (0.7-2.0) mmol/L AST (17-59) U/L ALT (4-49) U/L Total Protein (6.3-8.2) g/dL Albumin (3.5-5.0) g/dL Procalcitonin (0.02-0.50) ng/mL Urine Protein (Negative) Urine Blood (Negative) Ur Leukocyte Esterase (Negative) Urine RBC (0-5) /hpf Urine WBC (0-5) /hpf Urine Mucus (None) /hpf Crossmatch 01/27/25 01/27/25 01/27/25 Range/Units 03:10 09:40 09:46 WBC (4.50-10.00) 10*3/uL RBC (4.40-5.60) 10*6/uL Hgb (13.0-17.0) g/dL Hct (39.6-50.0) % MCH (27.0-32.0) pg Plt Count (140-440) 10*3/uL Immature Gran # (0.00-0.04) 10*3/uL Neutrophils # (1.80-7.70) 10*3/uL Eosinophils # (0.04-0.35) 10*3/uL ABG pH 7.46 H (7.35-7.45) ABG pCO2 29 L (35-45) mmHg ABG pO2 122 H <30 L* (83-108) mmHg ABG Total CO2 25 H (19-24) mmol/L ABG O2 Saturation 99.6 H 31.2 L (94-97) % Hemoglobin 7.9 L 8.3 L (13.0-17.5) gm/dL Sodium 131 L (137-145) mmol/L Carbon Dioxide 21 L (22-30) mmol/L BUN 26 H (9-20) mg/dL Glucose 100 H (74-99) mg/dL POC Glucose (mg/dL) (70-110) mg/dL Plasma Lactic Acid Ramon (0.7-2.0) mmol/L AST 106 H (17-59) U/L ALT 76 H (4-49) U/L Total Protein 5.0 L (6.3-8.2) g/dL Albumin 2.9 L (3.5-5.0) g/dL Procalcitonin (0.02-0.50) ng/mL Urine Protein (Negative) Urine Blood (Negative) Ur Leukocyte Esterase (Negative) Urine RBC (0-5) /hpf Urine WBC (0-5) /hpf Urine Mucus (None) /hpf Crossmatch 01/27/25 01/27/25 01/27/25 Range/Units 10:04 10:04 10:19 WBC (4.50-10.00) 10*3/uL RBC (4.40-5.60) 10*6/uL Hgb (13.0-17.0) g/dL Hct (39.6-50.0) % MCH (27.0-32.0) pg Plt Count (140-440) 10*3/uL Immature Gran # (0.00-0.04) 10*3/uL Neutrophils # (1.80-7.70) 10*3/uL Eosinophils # (0.04-0.35) 10*3/uL ABG pH (7.35-7.45) ABG pCO2 (35-45) mmHg ABG pO2 (83-108) mmHg ABG Total CO2 (19-24) mmol/L ABG O2 Saturation (94-97) % Hemoglobin (13.0-17.5) gm/dL Sodium (137-145) mmol/L Carbon Dioxide (22-30) mmol/L BUN (9-20) mg/dL Glucose (74-99) mg/dL POC Glucose (mg/dL) 131 H (70-110) mg/dL Plasma Lactic Acid Ramon 2.2 H* (0.7-2.0) mmol/L AST (17-59) U/L ALT (4-49) U/L Total Protein (6.3-8.2) g/dL Albumin (3.5-5.0) g/dL Procalcitonin (0.02-0.50) ng/mL Urine Protein (Negative) Urine Blood (Negative) Ur Leukocyte Esterase (Negative) Urine RBC (0-5) /hpf Urine WBC (0-5) /hpf Urine Mucus (None) /hpf Crossmatch See Detail Assessment and Plan Assessment: Multivessel coronary artery disease. Status postcoronary artery bypass grafting x 3 with a CHOE to the LAD, RAH to the OM, SVG to the PDA with left atrial appendage clipping. Postoperative day #3 Mechanical ventilator management, expected outcome of surgery recovered and on room air oxygen Right sided pleural effusion, status postthoracentesis on 01/26/2025 with 1 L removed Acute blood loss anemia, expected outcome of surgery Acute non-ST elevation myocardial infarction, previous history of LA in 2017 History of previous stent placement to circumflex and LAD in 2017 Benign essential hypertension Lifetime non-smoker Nonspecific pulmonary nodules sub-5 mm Dyslipidemia Benign essential hypertension Plan: The patient was seen and evaluated Chest x-ray, labs and medications reviewed Chest x-ray improved post right thoracentesis Currently stable on 2 L cannula Continue bronchodilators Heparin for DVT prophylaxis Continued use of the incentive spirometer Increase his activity as tolerated Currently up in a chair We will continue to follow I have personally seen and examined the patient, performed the documentation and the assessment and plan as written. Number of minutes spent on the visit: 10 Dictation was produced using [employer] dictation software. Please excuse any grammatical, word or spelling errors.
--- NOTE | 2025-01-27 13:09 | CA ---
Transthoracic Echo Report Name: Daniel Pyle Age: 74 Gender: M : 1950 Exam Date: 01/27/2025 11:15 Exam Location: [facility] Ht (in): 68 Wt (lb): 210 Ordering Physician: Gold Davalos Attending/Referring Phys: Anoop LEONARDO [employer] Magi Dial, TYSHAWN Procedure CPT: Indications: evaluate LV function Cardiac Hx: CABG Technical Quality: Fair Contrast 1: Definity Total Dose (mL): 2 Contrast 2: Total Dose (mL): MEASUREMENTS (Male / Female) Normal Values 2D ECHO LV Diastolic Diameter PLAX 4.0 cm 4.2 - 5.9 / 3.9 - 5.3 cm LV Systolic Diameter PLAX 3.5 cm IVS Diastolic Thickness 0.9 cm 0.6 - 1.0 / 0.6 - 0.9 cm LVPW Diastolic Thickness 1.0 cm 0.6 - 1.0 / 0.6 - 0.9 cm LV Relative Wall Thickness 0.5 RV Internal Dim ED PLAX 2.6 cm LA Systolic Diameter LX 4.2 cm 3.0 - 4.0 / 2.7 - 3.8 cm LV Diastolic Volume MOD BP 105.7 cm??? 67 - 155 / 56 - 104 cm??? LV Systolic Volume MOD BP 53.5 cm??? 22 - 58 / 19 - 49 cm??? LV Ejection Fraction MOD BP 49.4 % >= 55 % LV Cardiac Index MOD BP 2313.7 cm???/min???m??? LV Diastolic Volume MOD 4C 110.7 cm??? LV Systolic Volume MOD 4C 69.3 cm??? LV Ejection Fraction MOD 4C 37.4 % LV Cardiac Index MOD 4C 1830.6 cm???/min???m??? LV Diastolic Length 4C 9.0 cm LV Systolic Length 4C 8.1 cm LV Diastolic Volume MOD 2C 92.8 cm??? LV Systolic Volume MOD 2C 39.4 cm??? LV Ejection Fraction MOD 2C 57.6 % LV Cardiac Index MOD 2C 2365.2 cm???/min???m??? LV Diastolic Length 2C 8.2 cm LV Systolic Length 2C 7.8 cm FINDINGS Left Ventricle Left ventricular ejection fraction is estimated at 40 %. Left ventricular cavity size normal. Left ventricular wall thickness normal. [place] hypokinetic. Hypokinetic septum. Right Ventricle Right Atrium Left Atrium Mildly increased left atrial diameter. Mitral Valve Aortic Valve Tricuspid Valve Pulmonic Valve Pericardium Small pericardial effusion or a fat pad Aorta CONCLUSIONS LV size is normal there is hypokinesia of a severe degree involving the mid to distal septum and adjoining apex. No pericardial effusion probable fat pad Previewed by: Dr. Catie Cox MD (Electronically Signed) Final Date: 27 Jan 2025 13:08
[2025-01-27 14:33] LABS: Glucose,Whole Blood 93 mg/dL (70-110)
[2025-01-27 15:07] LABS: ABG Base Excess -1.8 mmol/L; ABG HCO3 23 mmol/L (21-25); ABG Oxygen Saturation 37.3 % (94-97); ABG PCO2 39 mmHg (35-45); ABG PH 7.38 (7.35-7.45); ABG TCO2 24 mmol/L (19-24); Allen Test Performed? Yes
[2025-01-27 15:10] LABS: ABG PO2 <30 mmHg (83-108)
[2025-01-27 15:21] LABS: Glucose,Whole Blood 107 mg/dL (70-110)
[2025-01-27 15:34] LABS: HGB 8.8 g/dL (13.0-17.0); MCH 31.2 pg (27.0-32.0); MCHC 33.8 g/dL (32.0-37.0); MCV 92.2 fL (80.0-97.0); Mean Platelet Volume 10.8 fL (9.5-12.2); Platelet Count 155 10*3/uL (140-440); RBC 2.82 10*6/uL (4.40-5.60); RDW 15.2 % (11.5-14.5)
[2025-01-27 16:05] LABS: Glucose,Whole Blood 111 mg/dL (70-110)
[2025-01-27 16:16] LABS: ABG Base Excess -1.4 mmol/L; ABG HCO3 23 mmol/L (21-25); ABG Oxygen Saturation 43.2 % (94-97); ABG PCO2 39 mmHg (35-45); ABG PH 7.39 (7.35-7.45); ABG TCO2 25 mmol/L (19-24); Allen Test Performed? Yes
[2025-01-27 16:19] LABS: ABG PO2 <30 mmHg (83-108)
[2025-01-27] MEDS: AMIODARONE 200 MG TAB PO STA (16:32)
[2025-01-27 17:10] LABS: Glucose,Whole Blood 76 mg/dL (70-110)
[2025-01-27 18:16] LABS: Glucose,Whole Blood 115 mg/dL (70-110)
[2025-01-27 20:26] LABS: Glucose,Whole Blood 114 mg/dL (70-110)
[2025-01-27 20:36] LABS: ABG HCO3 25 mmol/L (21-25); ABG Oxygen Saturation 62.5 % (94-97); ABG PCO2 40 mmHg (35-45); ABG TCO2 26 mmol/L (19-24); Allen Test Performed? Yes
[2025-01-27 20:38] LABS: ABG PO2 34 mmHg (83-108)
[2025-01-27] MEDS ORDERED: DEXTROSE 50% SYRINGE 50 ML IVP PRN ×2 (21:09)
--- NOTE | 2025-01-27 21:11 | P.PN ---
Subjective Progress Note Date: 01/27/25 01/17/2025 this is 74-year-old gentleman, follows with [facility] with past medical history significant for CAD, WI with stents of the circumflex and LAD, morbid obesity, hypertension, hyperlipidemia and multiple other medical issues brought into the ER via EMS from [facility] yesterday secondary to complaints of chest pain. Patient reports during [facility] he developed midsternal chest pain/tingling, nonradiating accompanied by increased shortness of breath and lightheadedness. Denies nausea, vomiting or diarrhea.denies abdominal pain.Patient responds slowly but appropriate;baseline as per PCP.Does not drive, uses the [facility] for transportation. Patient was initiated on IV heparin drip related to elevated troponins. EKG reported sinus tachycardia. Troponins 0.090, 3.400. D-dimer WNL, 0.26. Afebrile, normal WBC, hemoglobin 14.6, platelets 255, INR 1. 137, potassium 4 1, bicarb 24, creatinine 0.62, glucose 103, magnesium 1.6. proBNP 1550, TSH 3.740. Viral studies negative. Chest x-ray reported no acute cardiopulmonary disease/process. Currently denies chest pain, palpitations or shortness of breath.Maintaining O2 sats in the high 90s to 100% on room air. 01/18/2025 completed cardiac catheterization yesterday reported severe triple- vessel disease; proximal RCA 70 to 80% stenosis, mid RCA 60% stenosis,Ostium of the PLV 70% and PDA has 50 to 60% stenosis. Circumflex coronary artery 95% ostial stenosis. LAD 80 to 90% stenosis proximally in the ostial portion. LV fu nction/echo pending. Evaluated by cardiothoracic surgery yesterday, felt to be high risk candidate. Brother Arvind at bedside, disclosed that patient had run out of medications, timeframe unknown. Currently denies chest pain, palpitations or shortness of breath. Telemetry sinus rhythm. 01/19/2025 anticoagulated on IV heparin drip. Maintained on beta-trixie, statin and aspirin. Echo results pending. Telemetry sinus rhythm .denies chest pain, palpitations or shortness of breath. Denies lightheadedness dizziness or focal deficits. Incentive spirometer up to 1999. 01/20/2025 Patient evaluated today on the cardiac unit. Sitting up in the chair. No acute complaints. Heparin gtt currently off. Echocardiogram reveals EF 35% with apical, septal and inferior hypokinesis. Trace to mild MR, mild aortic stenosis, mild AR. Patient is being considered for open heart surgery. 01/21/2025 Patient is evaluated today in follow up. He is sitting up in the chair. Having no acute complaints. Remains off IV heparin at this time. He will be going for open heart surgery on Friday. 01/22/2025 Patient is evaluated today in f/u. Patient sitting up in the chair with no acute complaints. Tolerating diet. He is saturating 95% on room air. 01/23/2025 Patient evaluated today in follow up. Reports no acute complaints, denies any chest pressure, chest pain. Denies shortness of breath. Chest xray this morning reveals mild cardiomegaly with new right greater than left acute infiltrates and or edema. He received IV lasix 40 mg dose today. Sodium of 136, potassium 4.1, BUN 16, creatinine 0.70. White blood cell count 7.70, hgb 11.9. Patient is afebrile, heart rate 82, blood pressure 101/59, 95% on 2L of oxygen via nasal cannula. 01/24/2025 Patient going for open heart today and will be moved to the ICU post surgery. Chest xray today reveals mild cardiomegaly, and medium diffuse interstitial opacities which show slight improvement from prior. 01/25/2025 Patient evaluated today in the ICU. Patient is in soft wrist restraints. [place]- shonna catheter was pulled out this AM. It has been replaced. He received 1 unit of PRBC and was started on vasopresors and primacor gtt. Chest tubes x 3 noted. AM chest xray reveals post-CABG changes with residual interstitial pulmonary edema, some the previous patchy changes have improved. Ongoing small right pleural effusion with adjacent atelectasis and or consolidation noted. WBC 10.99, hgb 8.0, sodium 135, BUN 16, creatinine 0.93. 01/26/2025 Patient evaluated in the ICU. He is postoperative day #2 three-vessel cabg. He has been febrile with T-Max 100.6 in the last 24 hours. Chest xray reveal pleural effusion. Patient underwent right sided thoracentesis today 950 mL of fluid off. Also procal was bumped at 0.67. Urinalysis slightly abnormal. Will follow up with CT surgery for antibiotic needs. White blood cell count is 14.13. He remains on IV insulin; with plans to transition to sliding scale tomorrow. 01/27/2025 Patient evaluated in the ICU. He is more awake and alert today. Postoperative day #3 three-vessel CABG. Fever has been better. Chest xray reveals continued CHF. Echocardiogram reveals EF 40% hypokinesia of severe degree involving the distal septum and adjoining apex. No pericardial effusion noted. Chest tubes have been removed. Patients blood glucose has been controlled. Review of Systems Unable to complete a review of systems as patient is confused today PHYSICAL EXAMINATION: GENERAL: The patient is alert and oriented x2-3, not in any acute distress. Well developed, well nourished. HEENT: Pupils are round and equally reacting to light. EOMI. No scleral icterus. No conjunctival pallor. Normocephalic, atraumatic. No pharyngeal erythema. No thyromegaly. CARDIOVASCULAR: S1 and S2 present. No murmurs, rubs, or gallops. PULMONARY: Chest is clear to auscultation, no wheezing or crackles. ABDOMEN: Soft, nontender, nondistended, normoactive bowel sounds. No palpable organomegaly. MUSCULOSKELETAL: No joint swelling or deformity. EXTREMITIES: No cyanosis, clubbing, or pedal edema. Soft wrist restraints in place NEUROLOGICAL: No focal neurological deficits. SKIN: No rashes. Assessment NSTEMI, status post cardiac catheterization reporting triple-vessel disease Right sided pleural effusion CAD with history of WI 2017, stenting of circumflex and LAD, current ran out of his medications-states unclear on timeframe. Last refill RX recorded at [facility] as October 2019. Developmental delay, at baseline per PCP and patient's brother Arvind. Follows with [facility]. Fever; leukocytosis concern for UTI pending urine culture Volume overload status post IV lasix Hypertension Hyperlipidemia Morbid obesity, BMI 33 Plan -Patient is evaluated in the ICU post CABG -Status post thoracentesis -Chest tubes have been removed -[place]/Cordis remain in place -Continue current cardiac medications -Monitor electrolytes and renal function -Follow up with CT surgery for antibiotic need at this time await urine culture -Transition to sliding scale insulin ACHS The impression and plan of care has been dictated by Kandy Che, Nurse Practitioner as directed. Dr. Jesus Alberto MD I have performed a history and physical examination and medical decision making of this patient, discussed the same with the dictator, and agree with the dictators assessment and plan as written, documented as a scribe. Based on total visit time, I have performed more than 50% of this visit. Objective - Vital Signs Vital signs: Vital Signs Temp 98.2 F 01/27/25 20:30 Pulse 82 01/27/25 20:51 Resp 18 01/27/25 20:51 BP 113/67 01/27/25 19:00 Pulse Ox 100 01/27/25 20:30 FiO2 50 01/24/25 21:10 Intake & Output 01/27/25 01/27/25 01/28/25 06:59 18:59 06:59 Intake Total 051.287 5855.234 128 Output Total 235 360 165 Balance 250.358 4711.234 -37 Weight 95.6 kg Intake: IV 539 908 128 ACETAMINOPHEN IV (For NPO 100 ) 1,000 mg In Empty Bag 1 bag @ 400 mls/hr IVPB Q6HR FERNANDA Rx#:[id number] Albumin Human 25% 50 ml 50 In Empty Bag 1 bag @ 50 mls/hr IVPB ONCE ONE Rx#: [id number] CO/CI 70 30 Calcium Gluconate in NaCl 100 1 gm In Saline 1 100ml. bag @ 100 mls/hr IVPB ONCE ONE Rx#:[id number] Pressure 99 108 18 Sodium Chloride 0.9% 1, 440 480 80 000 ml @ 30 mls/hr IV . Q24H FERNANDA Rx#:[id number] Intake, IV Titration 2.298 16.234 Amount Insulin Regular 100 unit 2.298 In Sodium Chloride 0.9% 100 ml @ Per Protocol IV .Q0M FERNANDA Rx#:[id number] Milrinone-D5w Pmx 20 mg 16.234 In Dextrose/Water 1 100ml .bag @ 0.1 MCG/KG/MIN 3. 063 mls/hr IV .Q24H FERNANDA Rx#:[id number] Oral 1000 Blood Product 310 Rc As-1 Unit 310 [id number] Output: Urine 235 360 165 Other: Voiding Method Indwelling Catheter Indwelling Catheter # Bowel Movements 1 ABP, PAP, CO, CI - Last Documented Arterial Blood Pressure 124/40 Pulmonary Artery Pressure 30/7 Cardiac Output 4.4 Cardiac Index 2.1 - Labs CBC & Chem 7: 01/27/25 15:15 01/27/25 03:10 Labs: Abnormal Lab Results - Last 24 Hours (Table) 01/27/25 01/27/25 01/27/25 Range/Units 01:18 03:10 03:10 WBC 11.95 H (4.50-10.00) 10*3/uL RBC 2.36 L (4.40-5.60) 10*6/uL Hgb 7.6 L (13.0-17.0) g/dL Hct 21.9 L (39.6-50.0) % MCH 32.2 H (27.0-32.0) pg Plt Count 135 L (140-440) 10*3/uL Immature Gran # 0.07 H (0.00-0.04) 10*3/uL Neutrophils # 9.05 H (1.80-7.70) 10*3/uL Eosinophils # 0.02 L (0.04-0.35) 10*3/uL ABG pH (7.35-7.45) ABG pCO2 (35-45) mmHg ABG pO2 (83-108) mmHg ABG Total CO2 (19-24) mmol/L ABG O2 Saturation (94-97) % Hemoglobin (13.0-17.5) gm/dL Sodium 131 L (137-145) mmol/L Carbon Dioxide 21 L (22-30) mmol/L BUN 26 H (9-20) mg/dL Glucose 100 H (74-99) mg/dL POC Glucose (mg/dL) 117 H (70-110) mg/dL Plasma Lactic Acid Ramon (0.7-2.0) mmol/L AST 106 H (17-59) U/L ALT 76 H (4-49) U/L Total Protein 5.0 L (6.3-8.2) g/dL Albumin 2.9 L (3.5-5.0) g/dL Crossmatch 01/27/25 01/27/25 01/27/25 Range/Units 09:40 09:46 10:04 WBC (4.50-10.00) 10*3/uL RBC (4.40-5.60) 10*6/uL Hgb (13.0-17.0) g/dL Hct (39.6-50.0) % MCH (27.0-32.0) pg Plt Count (140-440) 10*3/uL Immature Gran # (0.00-0.04) 10*3/uL Neutrophils # (1.80-7.70) 10*3/uL Eosinophils # (0.04-0.35) 10*3/uL ABG pH 7.46 H (7.35-7.45) ABG pCO2 29 L (35-45) mmHg ABG pO2 122 H <30 L* (83-108) mmHg ABG Total CO2 25 H (19-24) mmol/L ABG O2 Saturation 99.6 H 31.2 L (94-97) % Hemoglobin 7.9 L 8.3 L (13.0-17.5) gm/dL Sodium (137-145) mmol/L Carbon Dioxide (22-30) mmol/L BUN (9-20) mg/dL Glucose (74-99) mg/dL POC Glucose (mg/dL) (70-110) mg/dL Plasma Lactic Acid Ramon 2.2 H* (0.7-2.0) mmol/L AST (17-59) U/L ALT (4-49) U/L Total Protein (6.3-8.2) g/dL Albumin (3.5-5.0) g/dL Crossmatch 01/27/25 01/27/25 01/27/25 Range/Units 10:04 10:19 15:04 WBC (4.50-10.00) 10*3/uL RBC (4.40-5.60) 10*6/uL Hgb (13.0-17.0) g/dL Hct (39.6-50.0) % MCH (27.0-32.0) pg Plt Count (140-440) 10*3/uL Immature Gran # (0.00-0.04) 10*3/uL Neutrophils # (1.80-7.70) 10*3/uL Eosinophils # (0.04-0.35) 10*3/uL ABG pH (7.35-7.45) ABG pCO2 (35-45) mmHg ABG pO2 <30 L* (83-108) mmHg ABG Total CO2 (19-24) mmol/L ABG O2 Saturation 37.3 L (94-97) % Hemoglobin 9.0 L (13.0-17.5) gm/dL Sodium (137-145) mmol/L Carbon Dioxide (22-30) mmol/L BUN (9-20) mg/dL Glucose (74-99) mg/dL POC Glucose (mg/dL) 131 H (70-110) mg/dL Plasma Lactic Acid Ramon (0.7-2.0) mmol/L AST (17-59) U/L ALT (4-49) U/L Total Protein (6.3-8.2) g/dL Albumin (3.5-5.0) g/dL Crossmatch See Detail 01/27/25 01/27/25 01/27/25 Range/Units 15:15 16:02 16:14 WBC 13.30 H (4.50-10.00) 10*3/uL RBC 2.82 L (4.40-5.60) 10*6/uL Hgb 8.8 L (13.0-17.0) g/dL Hct 26.0 L (39.6-50.0) % MCH (27.0-32.0) pg Plt Count (140-440) 10*3/uL Immature Gran # (0.00-0.04) 10*3/uL Neutrophils # (1.80-7.70) 10*3/uL Eosinophils # (0.04-0.35) 10*3/uL ABG pH (7.35-7.45) ABG pCO2 (35-45) mmHg ABG pO2 <30 L* (83-108) mmHg ABG Total CO2 25 H (19-24) mmol/L ABG O2 Saturation 43.2 L (94-97) % Hemoglobin 8.3 L (13.0-17.5) gm/dL Sodium (137-145) mmol/L Carbon Dioxide (22-30) mmol/L BUN (9-20) mg/dL Glucose (74-99) mg/dL POC Glucose (mg/dL) 111 H (70-110) mg/dL Plasma Lactic Acid Ramon (0.7-2.0) mmol/L AST (17-59) U/L ALT (4-49) U/L Total Protein (6.3-8.2) g/dL Albumin (3.5-5.0) g/dL Crossmatch 01/27/25 01/27/25 01/27/25 Range/Units 18:15 20:24 20:26 WBC (4.50-10.00) 10*3/uL RBC (4.40-5.60) 10*6/uL Hgb (13.0-17.0) g/dL Hct (39.6-50.0) % MCH (27.0-32.0) pg Plt Count (140-440) 10*3/uL Immature Gran # (0.00-0.04) 10*3/uL Neutrophils # (1.80-7.70) 10*3/uL Eosinophils # (0.04-0.35) 10*3/uL ABG pH (7.35-7.45) ABG pCO2 (35-45) mmHg ABG pO2 34 L* (83-108) mmHg ABG Total CO2 26 H (19-24) mmol/L ABG O2 Saturation 62.5 L (94-97) % Hemoglobin 8.7 L (13.0-17.5) gm/dL Sodium (137-145) mmol/L Carbon Dioxide (22-30) mmol/L BUN (9-20) mg/dL Glucose (74-99) mg/dL POC Glucose (mg/dL) 115 H 114 H (70-110) mg/dL Plasma Lactic Acid Ramon (0.7-2.0) mmol/L AST (17-59) U/L ALT (4-49) U/L Total Protein (6.3-8.2) g/dL Albumin (3.5-5.0) g/dL Crossmatch Assessment and Plan Time with Patient: Less than 30
[2025-01-27] MEDS: AMIODARONE 200 MG TAB PO SCH (21:14)
[2025-01-28 00:09] LABS: Allen Test Performed? Yes
[2025-01-28 00:09] LABS: Glucose,Whole Blood 114 mg/dL (70-110)
[2025-01-28 00:17] LABS: ABG Base Excess 0.2 mmol/L; ABG HCO3 25 mmol/L (21-25); ABG Oxygen Saturation 49.2 % (94-97); ABG PCO2 39 mmHg (35-45); ABG PH 7.41 (7.35-7.45); ABG TCO2 26 mmol/L (19-24)
[2025-01-28 00:19] LABS: ABG PO2 <30 mmHg (83-108)
[2025-01-28 03:44] LABS: Glucose,Whole Blood 117 mg/dL (70-110)
[2025-01-28 03:49] LABS: ABG Base Excess 0.5 mmol/L; ABG HCO3 25 mmol/L (21-25); ABG Oxygen Saturation 47.3 % (94-97); ABG PCO2 38 mmHg (35-45); ABG PH 7.42 (7.35-7.45); ABG TCO2 26 mmol/L (19-24); Allen Test Performed? Yes
[2025-01-28 03:51] LABS: ABG PO2 <30 mmHg (83-108)
[2025-01-28 03:54] LABS: Basophils # (A) 0.06 10*3/uL (0.00-0.10); Basophils % (A) 0.5 %; Eosinophils # (A) 0.05 10*3/uL (0.04-0.35); Eosinophils % (A) 0.4 %; HCT 23.3 % (39.6-50.0); Lymphocytes # (A) 1.75 10*3/uL (0.90-5.00); Lymphocytes % (A) 15.5 %; MCH 31.6 pg (27.0-32.0); MCHC 34.3 g/dL (32.0-37.0); MCV 92.1 fL (80.0-97.0); Mean Platelet Volume 10.6 fL (9.5-12.2); Monocytes # (A) 0.56 10*3/uL (0.20-1.00); Neutrophils % (A) 78.1 %; Platelet Count 152 10*3/uL (140-440); RBC 2.53 10*6/uL (4.40-5.60); RDW 15.6 % (11.5-14.5); WBC 11.28 10*3/uL (4.50-10.00)
[2025-01-28 04:13] LABS: ALT 230 U/L (4-49); AST 317 U/L (17-59); African American GFR (CKD) >90 (>60 ml/min/1.73 sqM); Albumin 2.7 g/dL (3.5-5.0); Alkaline Phosphatase 116 U/L (38-126); Anion Gap 5 mmol/L; Blood Urea Nitrogen 26 mg/dL (9-20); Calcium 8.3 mg/dL (8.4-10.2); Carbon Dioxide 23 mmol/L (22-30); Chloride 102 mmol/L (98-107); Glucose 101 mg/dL (74-99); Non-African American GFR(CKD) >90 (>60 ml/min/1.73 sqM); Potassium 3.8 mmol/L (3.5-5.1); Sodium 130 mmol/L (137-145); Total Bilirubin 1.8 mg/dL (0.2-1.3); Total Protein 4.7 g/dL (6.3-8.2)
[2025-01-28] MEDS: PANTOPRAZOLE 40 MG TABLET PO SCH (06:27)
[2025-01-28] MEDS: POTASSIUM CHLORIDE ER 20 MEQ TAB.ER PO SCH ×2 (06:27→13:55)
[2025-01-28] MEDS: INSULIN LISPRO (HumaLOG) 100 UNIT/ML 10 mL VL SQ SCH (06:32)
[2025-01-28 06:33] LABS: Glucose,Whole Blood 109 mg/dL (70-110)
--- NOTE | 2025-01-28 07:16 | XR ---
EXAMINATION TYPE: XR chest 2V DATE OF EXAM: 01/28/2025 CLINICAL INDICATION: Male, 74 years old with history of Postop CABG, TECHNIQUE: Frontal and lateral views of the chest are obtained. COMPARISON: Prior chest x-ray from yesterday and older studies. FINDINGS: Overlying sternal wires and mediastinal clips and left atrial appendage are all redemonstr ated. Stable left internal jugular [place]-Ava catheter. Persistent mild cardiomegaly and moderate central increased opacities along with small pleural effus ions bilaterally are redemonstrated. There are new bilateral upper lung increased opacities. Osseous structures are intact. IMPRESSION: Findings suggests continued CHF exacerbation/fluid overload state. There are new Bil[place] l upper lung acute infiltrates and/or atelectasis noted. [facility], , 01/28/2025 7:14 AM
[2025-01-28 07:58] LABS: ABG Base Excess 0.2 mmol/L; ABG HCO3 25 mmol/L (21-25); ABG Oxygen Saturation 49.4 % (94-97); ABG PCO2 38 mmHg (35-45); ABG PH 7.42 (7.35-7.45); ABG TCO2 26 mmol/L (19-24); Allen Test Performed? Yes
[2025-01-28 08:03] LABS: Glucose,Whole Blood 112 mg/dL (70-110)
[2025-01-28 08:04] LABS: ABG PO2 <30 mmHg (83-108)
[2025-01-28] MEDS: MAGNESIUM SULFATE-D5W PMX 1 GM in DEXTROSE/WATER 1 100ML.BAG IVPB ONE (08:30)
[2025-01-28] MEDS: CYANOCOBALAMIN 500 MCG TAB PO SCH (08:31)
[2025-01-28] MEDS: ALBUMIN HUMAN 25% 50 ML in EMPTY BAG 1 BAG IVPB ONE (09:14)
--- NOTE | 2025-01-28 10:14 | P.PN ---
Subjective Progress Note Date: 01/28/25 Principal diagnosis: Multivessel coronary artery disease, non-ST elevated myocardial infarction this admission. Past medical history significant for coronary artery disease with m yocardial infarction and previous stent placement to his circumflex coronary artery and left anterior descending coronary artery in August 2017, hypertension, hyperlipidemia, obesity, lifetime non-smoker. POD #4 coronary artery bypass graft x 3 with left internal mammary artery to the left anterior descending artery, left radial artery to the obtuse marginal artery, reverse saphenous vein graft to the posterior descending artery, endoscopic vein harvesting of the left greater saphenous vein, endoscopic harvesting of the left radial artery, ligation of the left atrial appendage with a 35 mm AtriClip, epiaortic ultrasound, intraoperative transesophageal echocardiogram, graft flow measurements using the Bgifty stim system Acute blood loss anemia, expected given hemodilution and cardiopulmonary bypass pump. Hypotension, somewhat expected due to vasoplegia as well as acute blood loss. Right pleural effusion, status post right thoracentesis performed by Dr. Osborne from pulmonary medicine. Postoperative paroxysmal atrial fibrillation, a known common occurrence after cardiac surgery. The patient was seen and examined in follow-up today January 28, 2025 at his bedside in the intensive care unit. He is currently sitting up to the bedside chair, is awake, alert, oriented x 3 and is in no acute apparent distress. He is slow to respond which is baseline for the patient. He denies any complaints of pain or shortness of breath at this time. He remains hemodynamically stable and is curr ently on no inotropic or pressor support. A mixed venous gas this morning was drawn which showed an O2 sat of 47.3. Right IJ cordis and [place]-Ava catheter remains in place with current hemodynamic showing a cardiac output of 5.2, cardiac index 2.5, PA pressures 46/16, SVR 1880, and CVP 9 mmHg. Primacor drip remains infusing at 0.25 mcg/kg/min. Bedside telemetry showing normal sinus rhythm heart rate 83 bpm. Amiodarone has been put on hold due to his liver enzymes trending up. Laboratory and chest x-ray results reviewed. Objective - Vital Signs Vital signs: Vital Signs Temp 98.1 F 01/28/25 04:00 Pulse 84 01/28/25 07:00 Resp 18 01/28/25 07:00 BP 106/59 01/28/25 05:30 Pulse Ox 98 01/28/25 08:06 FiO2 50 01/24/25 21:10 Intake & Output 01/27/25 01/28/25 01/28/25 18:59 06:59 18:59 Intake Total 2234.234 791.283 Output Total 360 580 Balance 1874.234 211.283 Weight 100 kg Intake: IV 908 717 ACETAMINOPHEN IV (For NPO 100 ) 1,000 mg In Empty Bag 1 bag @ 400 mls/hr IVPB Q6HR PENDING SALE TO [facility] Rx#:[id number] Albumin Human 25% 50 ml 50 In Empty Bag 1 bag @ 50 mls/hr IVPB ONCE ONE Rx#: [id number] CO/CI 70 80 Calcium Gluconate in NaCl 100 1 gm In Saline 1 100ml. bag @ 100 mls/hr IVPB ONCE ONE Rx#:[id number] Pressure 108 117 Sodium Chloride 0.9% 1, 480 520 000 ml @ 30 mls/hr IV . Q24H PENDING SALE TO [facility] Rx#:[id number] Intake, IV Titration 16.234 74.283 Amount Milrinone-D5w Pmx 20 mg 16.234 74.283 In Dextrose/Water 1 100ml .bag @ 0.1 MCG/KG/MIN 3. 063 mls/hr IV .Q24H PENDING SALE TO [facility] Rx#:[id number] Oral 1000 Blood Product 310 Rc As-1 Unit 310 [id number] Output: Urine 360 580 Other: Voiding Method Indwelling Catheter Indwelling Catheter # Bowel Movements 1 2 ABP, PAP, CO, CI - Last Documented Arterial Blood Pressure 124/42 Pulmonary Artery Pressure 34/9 Cardiac Output 4.5 Cardiac Index 2.1 - Exam CONSTITUTIONAL: Appears somewhat comfortable, and cooperative. RESPIRATORY: Lungs sounds diminished to his bilateral bases. Respirations symmetrical, nonlabored. Currently on room air with oxygen saturation 98%. Achieving 1250 mL on his incentive spirometry with encouragement. Strong cough. CARDIOVASCULAR: S1, S2 present. Regular rate and rhythm, normal sinus rhythm on telemetry, heart rate 83 bpm. Sternum stable. Palpable peripheral pulses bilaterally. Generalized +1 edema present. No calf pain or tenderness noted. Heart hugger, antiembolism stockings, SCDs present. GASTROINTESTINAL: Abdomen soft, nontender, nondistended. Active bowel sounds present 4 quadrants. Passing flatus. Tolerating clear liquid diet. Bowel movement yesterday 01/27/2025 GENITOURINARY: Porter present draining clear, yellow urine. Urine output 315 mL in the last 8 hours. INTEGUMENTARY: Skin is warm and dry, no clubbing or cyanosis is present. Midline sternal incision well approximated and covered with intact dressing. Left radial artery harvest site as well as left lower extremity EVH site well approximated without redness or drainage. NEUROLOGIC: Cranial nerves II through XII intact. No focal deficits. MUSKULOSKELETAL: Able to move all extremities, strength equal bilaterally, generalized weakness. PSYCHIATRIC: Alert, slow to respond to questions, oriented to person, place and time, does follow commands, moves all extremities. INVASIVE LINES AND TUBES: Atrial and ventricular epicardial pacemaker wires present, connected to generator, backup rate 50 bpm. Left internal jugular [place], right radial arterial line present. Last CO/CI 5.2/2.5, SVR 1880, PA 46/16, CVP 9. - Allied health notes Allied health notes reviewed: nursing - Labs CBC & Chem 7: 01/28/25 03:46 01/28/25 03:46 Labs: Abnormal Lab Results - Last 24 Hours (Table) 01/27/25 01/27/25 01/27/25 Range/Units 09:40 09:46 10:04 WBC (4.50-10.00) 10*3/uL RBC (4.40-5.60) 10*6/uL Hgb (13.0-17.0) g/dL Hct (39.6-50.0) % Immature Gran # (0.00-0.04) 10*3/uL Neutrophils # (1.80-7.70) 10*3/uL ABG pH 7.46 H (7.35-7.45) ABG pCO2 29 L (35-45) mmHg ABG pO2 122 H <30 L* (83-108) mmHg ABG Total CO2 25 H (19-24) mmol/L ABG O2 Saturation 99.6 H 31.2 L (94-97) % Hemoglobin 7.9 L 8.3 L (13.0-17.5) gm/dL Sodium (137-145) mmol/L BUN (9-20) mg/dL Glucose (74-99) mg/dL POC Glucose (mg/dL) (70-110) mg/dL Plasma Lactic Acid Ramon 2.2 H* (0.7-2.0) mmol/L Calcium (8.4-10.2) mg/dL Total Bilirubin (0.2-1.3) mg/dL AST (17-59) U/L ALT (4-49) U/L Total Protein (6.3-8.2) g/dL Albumin (3.5-5.0) g/dL Crossmatch 01/27/25 01/27/25 01/27/25 Range/Units 10:04 10:19 15:04 WBC (4.50-10.00) 10*3/uL RBC (4.40-5.60) 10*6/uL Hgb (13.0-17.0) g/dL Hct (39.6-50.0) % Immature Gran # (0.00-0.04) 10*3/uL Neutrophils # (1.80-7.70) 10*3/uL ABG pH (7.35-7.45) ABG pCO2 (35-45) mmHg ABG pO2 <30 L* (83-108) mmHg ABG Total CO2 (19-24) mmol/L ABG O2 Saturation 37.3 L (94-97) % Hemoglobin 9.0 L (13.0-17.5) gm/dL Sodium (137-145) mmol/L BUN (9-20) mg/dL Glucose (74-99) mg/dL POC Glucose (mg/dL) 131 H (70-110) mg/dL Plasma Lactic Acid Ramon (0.7-2.0) mmol/L Calcium (8.4-10.2) mg/dL Total Bilirubin (0.2-1.3) mg/dL AST (17-59) U/L ALT (4-49) U/L Total Protein (6.3-8.2) g/dL Albumin (3.5-5.0) g/dL Crossmatch See Detail 01/27/25 01/27/25 01/27/25 Range/Units 15:15 16:02 16:14 WBC 13.30 H (4.50-10.00) 10*3/uL RBC 2.82 L (4.40-5.60) 10*6/uL Hgb 8.8 L (13.0-17.0) g/dL Hct 26.0 L (39.6-50.0) % Immature Gran # (0.00-0.04) 10*3/uL Neutrophils # (1.80-7.70) 10*3/uL ABG pH (7.35-7.45) ABG pCO2 (35-45) mmHg ABG pO2 <30 L* (83-108) mmHg ABG Total CO2 25 H (19-24) mmol/L ABG O2 Saturation 43.2 L (94-97) % Hemoglobin 8.3 L (13.0-17.5) gm/dL Sodium (137-145) mmol/L BUN (9-20) mg/dL Glucose (74-99) mg/dL POC Glucose (mg/dL) 111 H (70-110) mg/dL Plasma Lactic Acid Ramon (0.7-2.0) mmol/L Calcium (8.4-10.2) mg/dL Total Bilirubin (0.2-1.3) mg/dL AST (17-59) U/L ALT (4-49) U/L Total Protein (6.3-8.2) g/dL Albumin (3.5-5.0) g/dL Crossmatch 01/27/25 01/27/25 01/27/25 Range/Units 18:15 20:24 20:26 WBC (4.50-10.00) 10*3/uL RBC (4.40-5.60) 10*6/uL Hgb (13.0-17.0) g/dL Hct (39.6-50.0) % Immature Gran # (0.00-0.04) 10*3/uL Neutrophils # (1.80-7.70) 10*3/uL ABG pH (7.35-7.45) ABG pCO2 (35-45) mmHg ABG pO2 34 L* (83-108) mmHg ABG Total CO2 26 H (19-24) mmol/L ABG O2 Saturation 62.5 L (94-97) % Hemoglobin 8.7 L (13.0-17.5) gm/dL Sodium (137-145) mmol/L BUN (9-20) mg/dL Glucose (74-99) mg/dL POC Glucose (mg/dL) 115 H 114 H (70-110) mg/dL Plasma Lactic Acid Ramon (0.7-2.0) mmol/L Calcium (8.4-10.2) mg/dL Total Bilirubin (0.2-1.3) mg/dL AST (17-59) U/L ALT (4-49) U/L Total Protein (6.3-8.2) g/dL Albumin (3.5-5.0) g/dL Crossmatch 01/27/25 01/28/25 01/28/25 Range/Units 23:58 00:15 03:42 WBC (4.50-10.00) 10*3/uL RBC (4.40-5.60) 10*6/uL Hgb (13.0-17.0) g/dL Hct (39.6-50.0) % Immature Gran # (0.00-0.04) 10*3/uL Neutrophils # (1.80-7.70) 10*3/uL ABG pH (7.35-7.45) ABG pCO2 (35-45) mmHg ABG pO2 <30 L* (83-108) mmHg ABG Total CO2 26 H (19-24) mmol/L ABG O2 Saturation 49.2 L (94-97) % Hemoglobin 8.3 L (13.0-17.5) gm/dL Sodium (137-145) mmol/L BUN (9-20) mg/dL Glucose (74-99) mg/dL POC Glucose (mg/dL) 114 H 117 H (70-110) mg/dL Plasma Lactic Acid Ramon (0.7-2.0) mmol/L Calcium (8.4-10.2) mg/dL Total Bilirubin (0.2-1.3) mg/dL AST (17-59) U/L ALT (4-49) U/L Total Protein (6.3-8.2) g/dL Albumin (3.5-5.0) g/dL Crossmatch 01/28/25 01/28/25 01/28/25 Range/Units 03:46 03:46 03:46 WBC 11.28 H (4.50-10.00) 10*3/uL RBC 2.53 L (4.40-5.60) 10*6/uL Hgb 8.0 L (13.0-17.0) g/dL Hct 23.3 L (39.6-50.0) % Immature Gran # 0.06 H (0.00-0.04) 10*3/uL Neutrophils # 8.80 H (1.80-7.70) 10*3/uL ABG pH (7.35-7.45) ABG pCO2 (35-45) mmHg ABG pO2 <30 L* (83-108) mmHg ABG Total CO2 26 H (19-24) mmol/L ABG O2 Saturation 47.3 L (94-97) % Hemoglobin 8.1 L (13.0-17.5) gm/dL Sodium 130 L (137-145) mmol/L BUN 26 H (9-20) mg/dL Glucose 101 H (74-99) mg/dL POC Glucose (mg/dL) (70-110) mg/dL Plasma Lactic Acid Ramon (0.7-2.0) mmol/L Calcium 8.3 L (8.4-10.2) mg/dL Total Bilirubin 1.8 H (0.2-1.3) mg/dL AST 317 H (17-59) U/L ALT 230 H (4-49) U/L Total Protein 4.7 L (6.3-8.2) g/dL Albumin 2.7 L (3.5-5.0) g/dL Crossmatch 01/28/25 01/28/25 Range/Units 07:54 08:00 WBC (4.50-10.00) 10*3/uL RBC (4.40-5.60) 10*6/uL Hgb (13.0-17.0) g/dL Hct (39.6-50.0) % Immature Gran # (0.00-0.04) 10*3/uL Neutrophils # (1.80-7.70) 10*3/uL ABG pH (7.35-7.45) ABG pCO2 (35-45) mmHg ABG pO2 <30 L* (83-108) mmHg ABG Total CO2 26 H (19-24) mmol/L ABG O2 Saturation 49.4 L (94-97) % Hemoglobin 8.4 L (13.0-17.5) gm/dL Sodium (137-145) mmol/L BUN (9-20) mg/dL Glucose (74-99) mg/dL POC Glucose (mg/dL) 112 H (70-110) mg/dL Plasma Lactic Acid Ramon (0.7-2.0) mmol/L Calcium (8.4-10.2) mg/dL Total Bilirubin (0.2-1.3) mg/dL AST (17-59) U/L ALT (4-49) U/L Total Protein (6.3-8.2) g/dL Albumin (3.5-5.0) g/dL Crossmatch Microbiology - Last 24 Hours (Table) 01/26/25 13:25 Urine Culture - Final Urine,Catheterized - Imaging and Cardiology Chest x-ray: report reviewed, image reviewed Assessment and Plan Assessment: Multivessel coronary artery disease, non-ST elevated myocardial infarction this admission status post three-vessel CABG Acute blood loss anemia, expected given hemodilution and cardiopulmonary bypass pump Hypotension, somewhat expected due to vasoplegia as well as acute blood loss, resolved Postoperative paroxysmal atrial fibrillation, a known common occurrence after cardiac surgery Right pleural effusion, status post right thoracentesis 1 L drained Transaminitis History of coronary artery disease with myocardial infarction and previous stent placement to Cx and LAD in August 2017 Hypertension Hyperlipidemia, cholesterol 174, LDL 100.8, triglycerides 139 Obesity Lifetime non-smoker Developmental delay Plan: Continue to maximize medical therapy with aspirin, Plavix and beta-trixie. Continue metoprolol to tartrate 12.5 mg p.o. twice daily with hold parameters. Hold Lipitor at this time as his liver enzymes are trending up. Once his liver enzymes have normalized we will restart. Encourage incentive spirometry use 10 times every hour while awake. Bronchodilators per pulmonology. Discontinue amiodarone as his liver enzymes are trending up. Will monitor daily labs and chest x-rays. Electrolyte replacement per protocol. Increase activity as tolerated. PT/OT/cardiac rehab following. GI/DVT prophylaxis. Continue [place], we will likely remove [place]-Ava catheter this afternoon. Remove Porter catheter, continue to monitor strict accurate intake and output. May bladder scan every 6 hours and as needed postvoid residual. Insulin management per internal medicine. Patient is not diabetic, preoperative hemoglobin A1c 5.4%. Patient should remain on continuous IV insulin for 48 hours, then may transition to subcutaneous per protocol Pain control per current medication regimen. Albumin 25% IV piggyback x 1 now 50 mL. Calcium gluconate 1 g IV piggyback x 1 now. Keep in the intensive care unit. More recommendations to follow based on patient's clinical course. Time with Patient: Greater than 30
--- NOTE | 2025-01-28 10:39 | P.PN ---
Subjective Progress Note Date: 01/28/25 This is a 74-year-old white male known history of coronary artery disease, previous stenting of circumflex and LAD, known history of hypertension, dyslipidemia, patient presented to the hospital on 01/16 with chest pain suggestive of acute coronary syndrome. Patient was seen by cardiology and he was felt to have non-ST elevation myocardial infarction started patient initially on heparin aspirin atorvastatin and metoprolol. Patient underwent cardiac catheterization, he was found to have multivessel coronary artery disease, seen by cardiothoracic surgery on consultation, and the plan is to proceed with myocardial revascularization. Workup so far included CT of the chest, it showed no acute thoracic process, it also showed nonspecific pulmonary nodules measuring up to 4 mm, and he was found to have cholelithiasis. Patient states that he is quite active, patient walks on a daily basis, and he never smoked. Denies any cough wheezing shortness of breath. Denies any fever or chills or hemoptysis. Going back to his cardiac catheterization, it showed three-vessel coronary artery disease with 80 to 90% stenosis of the LAD, 95% stenosis to the ostial circumflex coronary artery 70 to 80% stenosis to the ostium of the PLV coronary artery and 50 to 60% to the PDA coronary artery. Seen today on 01/22/2025, patient is now scheduled for myocardial revascularization on Friday. Doing well, asymptomatic, achieving over 1500 cc on incentive spirometry, not in any distress no cough no wheezing no shortness of breath, electrolytes are normal renal profile is normal CBC is normal Patient was seen today on 01/23/2025, patient is resting in bed, does not seem to be in any distress, supposed to undergo myocardial revascularization tomorrow. Patient did develop some component of pulmonary edema as noted on his follow-up chest x-ray, received diuretics/Lasix, and seems to be clinically better. Baseline FEV1 is 61%, The patient is seen today January 24, 2025 in follow-up in the intensive care unit. He is now status post coronary artery bypass grafting with a CHOE to the LAD RHA to the OM, SVG to the PDA and left atrial appendage clipping. Currently on the mechanical ventilator and assist-control mode at a rate of 16, tidal volume 500 and FiO2 100% and a PEEP of 10. Arterial blood gases revealed a PaO2 of 367, [id number] and a pH of 7.38. He is currently on a nitroglycerin drip at 5 mcg/min. 7 5 mcg/kg/min. Norepinephrine at 0.07 mcg/kg/min. Propofol at 20 mcg/kg/min. Normal saline at 50 mL/h. He has a right, left and mediastinal chest tube in place. Cardiac output 4.4. Cardiac index 2.1. PA pressure 26/12. He did receive 2 units of fresh frozen plasma and 1 albumin since his return from the OR. White count 9.8. Hemoglobin 7.0. Platelets 106. Sodium 135. Potassium 4.4. Bicarb 23. BUN 14. Creatinine 0.62. Glucose 116. He is initiated on DuoNeb ventilations. Heparin for DVT prophylaxis. The patient is seen today January 25, 2025 in follow-up in the intensive care unit. He is was extubated last evening at 22:15. Currently maintaining O2 saturations in the high 90s on 6 L high flow nasal cannula. Core temperature 100.6. Slightly tachycardic at 114. Blood pressure 134/51. PA pressure 46/28. CVP 16. Cardiac output 5.6. Cardiac index 2.7. Vasopressin and norepinephrine have been weaned off. He remains on Primacor at 0.1 mcg/kg/min. Insulin drip at 1 unit/h. Normal saline at 50 mL/h. Remains on bronchodilators. Remains on heparin for DVT prophylaxis. He inadvertently pulled out his Lawrence-Ava catheter earlier this morning. This was replaced by anesthesia. Arterial blood gases revealed a PaO2 of 70, PCO2 of 34, pH 7.43. Chest x-ray revealed postoperative changes, mild pulmonary edema. Small right pleural effusion. Right, left and mediastinal chest tubes remain in place. Pacer wires remain in place. Status post 2 units of packed red blood cells, 2 units of fresh frozen plasma, 1 unit of platelets. Lites 103. Sodium 135. Potassium 4.0. Bicarb 24. BUN 16. Creatinine 0.63. Glucose 119. Albumin 3.3. The patient is seen today January 26, 2025 in follow-up in the intensive care unit. He is currently sitting up in bed. Awake and alert in no acute distress. He is maintaining O2 saturations in the 90s on room air oxygen. He is pulling only about 750 to 1000 mL on the incentive spirometer. He remains on insulin drip at 1 unit/h. Primacor drip at 0.1 mcg/kg/min. Normal saline at 50 mL/h. Right, left, mediastinal chest tubes remain in place. Cardiac output 5.3. Cardiac index 2.5. PA pressure 42/17. CVP 8. Core temperature 100.6. Chest x-ray reveals cardiomegaly with small right pleural effusion and bilateral venous congestion. He is status post 2 units of packed red blood cells, 2 units of fresh frozen plasma, 1 unit of platelets. White count 14.1. Hemoglobin 8.2. Platelets 145. Sodium 134. Potassium 4.1. Bicarb 21. BUN 19. Creatinine 0.70. Glucose 114. He remains on DuoNeb inhalations. Heparin for DVT prophylaxis. The patient is seen today January 27, 2025 in follow-up in the intensive care unit. He is currently up in a chair at the bedside. Awake and alert in no acute distress. Maintaining O2 saturations in the 90s on 2 L/min per nasal cannula. Today's chest x-ray improvement post right sided thoracentesis yesterday. 1 L of bloody fluid returned. Blood gases revealed a PaO2 of 122. pCO2 29 pH 7.46 on 30% FiO2. 2 units of packed red blood cells. 2 units of fresh frozen plasma. 1 unit of platelets. 6. Platelets 135. Sodium 131. Potassium 4.3. Bicarb 21. BUN 26. Creatinine 0.83. Glucose 131. Well. PA pressure 37/14. CVP 7. Cardiac output 3.4. Cardiac index 1.6. Chest tubes have been removed. Pacer wires in place with backup pacing VVI at 50 bpm. Left Lawrence-Ava internal jugular catheter remains in place. The patient is seen today January 28, 2025 in follow-up in the intensive care unit. Postoperative day #4. He is currently up in a chair at the bedside. Awake and alert in no acute distress. Maintaining good O2 saturations in the 90s on room air oxygen. He is currently in sinus rhythm. He is on normal saline at 30 mL/h. Primacor at 0.25 mcg/kg/min. Left IJ Lawrence-Ava catheter remains in place. Cardiac output 5.2. Cardiac index 2.5. PA pressure 40/18. CVP 10. Chest x-ray shows mild fluid volume overload. Basilar atelectasis. He is status post 3 units of packed red blood cells, 2 units of fresh frozen plasma and 1 unit of platelets this admission. Culture revealed no growth. White count 11.2. Hemoglobin 8.0. Platelets 152. Sodium 130. Potassium 3.8. Bicarb 23. BUN 26. Creatinine 0.68. AST 317. ALT 230. Albumin 2.7. He is continued on DuoNeb inhalations. Heparin for DVT prophylaxis. Protonix for GI prophylaxis. Objective - Vital Signs Vital signs: Vital Signs Temp 99.1 F 01/28/25 08:00 Pulse 81 01/28/25 10:00 Resp 19 01/28/25 10:00 BP 94/58 01/28/25 10:00 Pulse Ox 99 01/28/25 10:00 FiO2 50 01/24/25 21:10 Intake & Output 01/27/25 01/28/25 01/28/25 18:59 06:59 18:59 Intake Total 2234.234 791.283 167 Output Total 360 580 195 Balance 1874.234 211.283 -28 Weight 100 kg Intake: IV 908 717 167 ACETAMINOPHEN IV (For NPO 100 ) 1,000 mg In Empty Bag 1 bag @ 400 mls/hr IVPB Q6HR [facility] Rx#:[id number] Albumin Human 25% 50 ml 50 In Empty Bag 1 bag @ 50 mls/hr IVPB ONCE ONE Rx#: [id number] CO/CI 70 80 20 Calcium Gluconate in NaCl 100 1 gm In Saline 1 100ml. bag @ 100 mls/hr IVPB ONCE ONE Rx#:[id number] Pressure 108 117 27 Sodium Chloride 0.9% 1, 480 520 120 000 ml @ 30 mls/hr IV . Q24H [facility] Rx#:[id number] Intake, IV Titration 16.234 74.283 Amount Milrinone-D5w Pmx 20 mg 16.234 74.283 In Dextrose/Water 1 100ml .bag @ 0.1 MCG/KG/MIN 3. 063 mls/hr IV .Q24H [facility] Rx#:[id number] Oral 1000 Blood Product 310 Rc As-1 Unit 310 [id number] Output: Urine 360 580 195 Other: Voiding Method Indwelling Catheter Indwelling Catheter # Bowel Movements 1 2 1 ABP, PAP, CO, CI - Last Documented Arterial Blood Pressure 108/35 Pulmonary Artery Pressure 30/11 Cardiac Output 5.2 Cardiac Index 2.5 - Exam GENERAL EXAM: Alert, 74-year-old male, on room air oxygen, up in a chair, in no acute distress HEAD: Normocephalic. EYES: Normal reaction of pupils, equal size. NOSE: Clear with pink turbinates. THROAT: No erythema or exudates. NECK: Left IJ Lawrence-Ava catheter in place. No masses, no JVD. CHEST: Sternal dressing dry and intact. Heart hugger in place. Pacer wires in place. LUNGS: Equal air entry with few scattered rhonchi, crackles in the right lung base. CVS: S1 and S2 normal with no audible murmur, regular rhythm. ABDOMEN: No hepatosplenomegaly, no guarding or rigidity. SPINE: No scoliosis or deformity SKIN: No rashes CENTRAL NERVOUS SYSTEM: Sedated, tone is normal in all 4 extremities. EXTREMITIES: Bilateral lower extremities with SERENITY hose, SCDs. Peripheral pulses are intact. - Labs CBC & Chem 7: 01/28/25 03:46 01/28/25 03:46 Labs: Abnormal Lab Results - Last 24 Hours (Table) 01/27/25 01/27/25 01/27/25 Range/Units 10:04 10:19 15:04 WBC (4.50-10.00) 10*3/uL RBC (4.40-5.60) 10*6/uL Hgb (13.0-17.0) g/dL Hct (39.6-50.0) % Immature Gran # (0.00-0.04) 10*3/uL Neutrophils # (1.80-7.70) 10*3/uL ABG pO2 <30 L* (83-108) mmHg ABG Total CO2 (19-24) mmol/L ABG O2 Saturation 37.3 L (94-97) % Hemoglobin 9.0 L (13.0-17.5) gm/dL Sodium (137-145) mmol/L BUN (9-20) mg/dL Glucose (74-99) mg/dL POC Glucose (mg/dL) (70-110) mg/dL Plasma Lactic Acid Ramon 2.2 H* (0.7-2.0) mmol/L Calcium (8.4-10.2) mg/dL Total Bilirubin (0.2-1.3) mg/dL AST (17-59) U/L ALT (4-49) U/L Total Protein (6.3-8.2) g/dL Albumin (3.5-5.0) g/dL Crossmatch See Detail 01/27/25 01/27/25 01/27/25 Range/Units 15:15 16:02 16:14 WBC 13.30 H (4.50-10.00) 10*3/uL RBC 2.82 L (4.40-5.60) 10*6/uL Hgb 8.8 L (13.0-17.0) g/dL Hct 26.0 L (39.6-50.0) % Immature Gran # (0.00-0.04) 10*3/uL Neutrophils # (1.80-7.70) 10*3/uL ABG pO2 <30 L* (83-108) mmHg ABG Total CO2 25 H (19-24) mmol/L ABG O2 Saturation 43.2 L (94-97) % Hemoglobin 8.3 L (13.0-17.5) gm/dL Sodium (137-145) mmol/L BUN (9-20) mg/dL Glucose (74-99) mg/dL POC Glucose (mg/dL) 111 H (70-110) mg/dL Plasma Lactic Acid Ramon (0.7-2.0) mmol/L Calcium (8.4-10.2) mg/dL Total Bilirubin (0.2-1.3) mg/dL AST (17-59) U/L ALT (4-49) U/L Total Protein (6.3-8.2) g/dL Albumin (3.5-5.0) g/dL Crossmatch 01/27/25 01/27/25 01/27/25 Range/Units 18:15 20:24 20:26 WBC (4.50-10.00) 10*3/uL RBC (4.40-5.60) 10*6/uL Hgb (13.0-17.0) g/dL Hct (39.6-50.0) % Immature Gran # (0.00-0.04) 10*3/uL Neutrophils # (1.80-7.70) 10*3/uL ABG pO2 34 L* (83-108) mmHg ABG Total CO2 26 H (19-24) mmol/L ABG O2 Saturation 62.5 L (94-97) % Hemoglobin 8.7 L (13.0-17.5) gm/dL Sodium (137-145) mmol/L BUN (9-20) mg/dL Glucose (74-99) mg/dL POC Glucose (mg/dL) 115 H 114 H (70-110) mg/dL Plasma Lactic Acid Ramon (0.7-2.0) mmol/L Calcium (8.4-10.2) mg/dL Total Bilirubin (0.2-1.3) mg/dL AST (17-59) U/L ALT (4-49) U/L Total Protein (6.3-8.2) g/dL Albumin (3.5-5.0) g/dL Crossmatch 01/27/25 01/28/25 01/28/25 Range/Units 23:58 00:15 03:42 WBC (4.50-10.00) 10*3/uL RBC (4.40-5.60) 10*6/uL Hgb (13.0-17.0) g/dL Hct (39.6-50.0) % Immature Gran # (0.00-0.04) 10*3/uL Neutrophils # (1.80-7.70) 10*3/uL ABG pO2 <30 L* (83-108) mmHg ABG Total CO2 26 H (19-24) mmol/L ABG O2 Saturation 49.2 L (94-97) % Hemoglobin 8.3 L (13.0-17.5) gm/dL Sodium (137-145) mmol/L BUN (9-20) mg/dL Glucose (74-99) mg/dL POC Glucose (mg/dL) 114 H 117 H (70-110) mg/dL Plasma Lactic Acid Ramon (0.7-2.0) mmol/L Calcium (8.4-10.2) mg/dL Total Bilirubin (0.2-1.3) mg/dL AST (17-59) U/L ALT (4-49) U/L Total Protein (6.3-8.2) g/dL Albumin (3.5-5.0) g/dL Crossmatch 01/28/25 01/28/25 01/28/25 Range/Units 03:46 03:46 03:46 WBC 11.28 H (4.50-10.00) 10*3/uL RBC 2.53 L (4.40-5.60) 10*6/uL Hgb 8.0 L (13.0-17.0) g/dL Hct 23.3 L (39.6-50.0) % Immature Gran # 0.06 H (0.00-0.04) 10*3/uL Neutrophils # 8.80 H (1.80-7.70) 10*3/uL ABG pO2 <30 L* (83-108) mmHg ABG Total CO2 26 H (19-24) mmol/L ABG O2 Saturation 47.3 L (94-97) % Hemoglobin 8.1 L (13.0-17.5) gm/dL Sodium 130 L (137-145) mmol/L BUN 26 H (9-20) mg/dL Glucose 101 H (74-99) mg/dL POC Glucose (mg/dL) (70-110) mg/dL Plasma Lactic Acid Ramon (0.7-2.0) mmol/L Calcium 8.3 L (8.4-10.2) mg/dL Total Bilirubin 1.8 H (0.2-1.3) mg/dL AST 317 H (17-59) U/L ALT 230 H (4-49) U/L Total Protein 4.7 L (6.3-8.2) g/dL Albumin 2.7 L (3.5-5.0) g/dL Crossmatch 01/28/25 01/28/25 Range/Units 07:54 08:00 WBC (4.50-10.00) 10*3/uL RBC (4.40-5.60) 10*6/uL Hgb (13.0-17.0) g/dL Hct (39.6-50.0) % Immature Gran # (0.00-0.04) 10*3/uL Neutrophils # (1.80-7.70) 10*3/uL ABG pO2 <30 L* (83-108) mmHg ABG Total CO2 26 H (19-24) mmol/L ABG O2 Saturation 49.4 L (94-97) % Hemoglobin 8.4 L (13.0-17.5) gm/dL Sodium (137-145) mmol/L BUN (9-20) mg/dL Glucose (74-99) mg/dL POC Glucose (mg/dL) 112 H (70-110) mg/dL Plasma Lactic Acid Ramon (0.7-2.0) mmol/L Calcium (8.4-10.2) mg/dL Total Bilirubin (0.2-1.3) mg/dL AST (17-59) U/L ALT (4-49) U/L Total Protein (6.3-8.2) g/dL Albumin (3.5-5.0) g/dL Crossmatch Microbiology - Last 24 Hours (Table) 01/26/25 13:25 Urine Culture - Final Urine,Catheterized Assessment and Plan Assessment: Multivessel coronary artery disease. Status postcoronary artery bypass grafting x 3 with a CHOE to the LAD, RAH to the OM, SVG to the PDA with left atrial appendage clipping. Postoperative day #4 Mechanical ventilator management, expected outcome of surgery recovered and on room air oxygen Right sided pleural effusion, status postthoracentesis on 01/26/2025 with 1 L removed Acute blood loss anemia, expected outcome of surgery, required 3 units of packed red blood cells Acute non-ST elevation myocardial infarction, previous history of GA in 2017 History of previous stent placement to circumflex and LAD in 2017 Benign essential hypertension Lifetime non-smoker Nonspecific pulmonary nodules sub-5 mm Dyslipidemia Benign essential hypertension Plan: The patient was seen and evaluated Chest x-ray, labs and medications reviewed Currently stable on room air oxygen Continue bronchodilators Heparin for DVT prophylaxis Continued use of the incentive spirometer Increase his activity as tolerated We will continue to follow I have personally seen and examined the patient, performed the documentation and the assessment and plan as written. Number of minutes spent on the visit: 10 Dictation was produced using [employer] dictation software. Please excuse any grammatical, word or spelling errors.
[2025-01-28 11:54] LABS: Glucose,Whole Blood 123 mg/dL (70-110)
[2025-01-28 12:00] LABS: ABG HCO3 24 mmol/L (21-25); ABG Oxygen Saturation 50.4 % (94-97); ABG PCO2 38 mmHg (35-45); ABG TCO2 25 mmol/L (19-24); Allen Test Performed? Yes
[2025-01-28 12:04] LABS: ABG PO2 <30 mmHg (83-108)
--- NOTE | 2025-01-28 13:34 | P.PN ---
Progress Note - Text Patient is doing well. No chest discomfort or dizziness or lightheadedness Heart sounds S1-S2 normal Blood pressure 101/52 mmHg pulse rate in the 80s Impression Multivessel coronary artery disease Non-ST segment elevation AL Coronary artery bypass grafting Hypertension Plan Continue current medications Brief postoperative atrial fibrillation noted
[2025-01-28 16:51] LABS: Glucose,Whole Blood 156 mg/dL (70-110)
[2025-01-28 20:16] LABS: Glucose,Whole Blood 99 mg/dL (70-110)
--- NOTE | 2025-01-28 22:16 | P.PN ---
Subjective Progress Note Date: 01/28/25 01/17/2025 this is 74-year-old gentleman, follows with [facility] with past medical history significant for CAD, MO with stents of the circumflex and LAD, morbid obesity, hypertension, hyperlipidemia and multiple other medical issues brought into the ER via EMS from [facility] yesterday secondary to complaints of chest pain. Patient reports during [facility] he developed midsternal chest pain/tingling, nonradiating accompanied by increased shortness of breath and lightheadedness. Denies nausea, vomiting or diarrhea.denies abdominal pain.Patient responds slowly but appropriate;baseline as per PCP.Does not drive, uses the [facility] [employer] for transportation. Patient was initiated on IV heparin drip related to elevated troponins. EKG reported sinus tachycardia. Troponins 0.090, 3.400. D-dimer WNL, 0.26. Afebrile, normal WBC, hemoglobin 14.6, platelets 255, INR 1. 137, potassium 4 1, bicarb 24, creatinine 0.62, glucose 103, magnesium 1.6. proBNP 1550, TSH 3.740. Viral studies negative. Chest x-ray reported no acute cardiopulmonary disease/process. Currently denies chest pain, palpitations or shortness of breath.Maintaining O2 sats in the high 90s to 100% on room air. 01/18/2025 completed cardiac catheterization yesterday reported severe triple- vessel disease; proximal RCA 70 to 80% stenosis, mid RCA 60% stenosis,Ostium of the PLV 70% and PDA has 50 to 60% stenosis. Circumflex coronary artery 95% ostial stenosis. LAD 80 to 90% stenosis proximally in the ostial portion. LV fu nction/echo pending. Evaluated by cardiothoracic surgery yesterday, felt to be high risk candidate. Brother Arvind at bedside, disclosed that patient had run out of medications, timeframe unknown. Currently denies chest pain, palpitations or shortness of breath. Telemetry sinus rhythm. 01/19/2025 anticoagulated on IV heparin drip. Maintained on beta-trixie, statin and aspirin. Echo results pending. Telemetry sinus rhythm .denies chest pain, palpitations or shortness of breath. Denies lightheadedness dizziness or focal deficits. Incentive spirometer up to 1999. 01/20/2025 Patient evaluated today on the cardiac unit. Sitting up in the chair. No acute complaints. Heparin gtt currently off. Echocardiogram reveals EF 35% with apical, septal and inferior hypokinesis. Trace to mild MR, mild aortic stenosis, mild AR. Patient is being considered for open heart surgery. 01/21/2025 Patient is evaluated today in follow up. He is sitting up in the chair. Having no acute complaints. Remains off IV heparin at this time. He will be going for open heart surgery on Friday. 01/22/2025 Patient is evaluated today in f/u. Patient sitting up in the chair with no acute complaints. Tolerating diet. He is saturating 95% on room air. 01/23/2025 Patient evaluated today in follow up. Reports no acute complaints, denies any chest pressure, chest pain. Denies shortness of breath. Chest xray this morning reveals mild cardiomegaly with new right greater than left acute infiltrates and or edema. He received IV lasix 40 mg dose today. Sodium of 136, potassium 4.1, BUN 16, creatinine 0.70. White blood cell count 7.70, hgb 11.9. Patient is afebrile, heart rate 82, blood pressure 101/59, 95% on 2L of oxygen via nasal cannula. 01/24/2025 Patient going for open heart today and will be moved to the ICU post surgery. Chest xray today reveals mild cardiomegaly, and medium diffuse interstitial opacities which show slight improvement from prior. 01/25/2025 Patient evaluated today in the ICU. Patient is in soft wrist restraints. Vinalhaven- shonna catheter was pulled out this AM. It has been replaced. He received 1 unit of PRBC and was started on vasopresors and primacor gtt. Chest tubes x 3 noted. AM chest xray reveals post-CABG changes with residual interstitial pulmonary edema, some the previous patchy changes have improved. Ongoing small right pleural effusion with adjacent atelectasis and or consolidation noted. WBC 10.99, hgb 8.0, sodium 135, BUN 16, creatinine 0.93. 01/26/2025 Patient evaluated in the ICU. He is postoperative day #2 three-vessel cabg. He has been febrile with T-Max 100.6 in the last 24 hours. Chest xray reveal pleural effusion. Patient underwent right sided thoracentesis today 950 mL of fluid off. Also procal was bumped at 0.67. Urinalysis slightly abnormal. Will follow up with CT surgery for antibiotic needs. White blood cell count is 14.13. He remains on IV insulin; with plans to transition to sliding scale tomorrow. 01/27/2025 Patient evaluated in the ICU. He is more awake and alert today. Postoperative day #3 three-vessel CABG. Fever has been better. Chest xray reveals continued CHF. Echocardiogram reveals EF 40% hypokinesia of severe degree involving the distal septum and adjoining apex. No pericardial effusion noted. Chest tubes have been removed. Patients blood glucose has been controlled. 01/28/2025 Patient is evaluated today in the ICU. Sitting up in the chair. No acute complaints at this time. He is postoperative day #4 three-vessel CABG. Chest xray reveals continued CHF/fluid overload state. New bilateral upper lung acute infiltrates and or atelectasis noted. WBC 11.28, hgb 8.0, sodium 130, potassium 3.9, BUN 26, creatinine 0.68. Mag 2.0. LFTs elevated and trending upwards. Urine culture negative. Blood glucose remains on controlled on sliding scale insulin. Review of Systems Constitutional: Denied any fatigue denied any fever. Cardio vascular: denied any chest pain, palpitations Gastrointestinal: denied any nausea, vomiting, diarrhea Pulmonary: Denied any shortness of breath cough Neurologic denied any new focal deficits All inpatient medications were reviewed and appropriate changes in these medications as dictated in the interval history and assessment and plan. PHYSICAL EXAMINATION: GENERAL: The patient is alert and oriented x2-3, not in any acute distress. Well developed, well nourished. HEENT: Pupils are round and equally reacting to light. EOMI. No scleral icterus. No conjunctival pallor. Normocephalic, atraumatic. No pharyngeal erythema. No thyromegaly. CARDIOVASCULAR: S1 and S2 present. No murmurs, rubs, or gallops. PULMONARY: Chest is clear to auscultation, no wheezing or crackles. ABDOMEN: Soft, nontender, nondistended, normoactive bowel sounds. No palpable organomegaly. MUSCULOSKELETAL: No joint swelling or deformity. EXTREMITIES: No cyanosis, clubbing, or pedal edema. Soft wrist restraints in place NEUROLOGICAL: No focal neurological deficits. SKIN: No rashes. Assessment NSTEMI, status post cardiac catheterization reporting triple-vessel disease Right sided pleural effusion CAD with history of MO 2017, stenting of circumflex and LAD, current ran out of his medications-states unclear on timeframe. Last refill RX recorded at [facility] as October 2019. Developmental delay, at baseline per PCP and patient's brother Arvind. Follows with [facility]. Fever; leukocytosis concern for UTI pending urine culture Volume overload status post IV lasix Hypertension Hyperlipidemia Morbid obesity, BMI 33 Plan -Patient is evaluated in the ICU post CABG -Status post thoracentesis -Chest tubes have been removed -Vinalhaven/Cordis remain in place -Continue current cardiac medications -Monitor electrolytes and renal function -Transition to sliding scale insulin ACHS The impression and plan of care has been dictated by Kandy Che, Nurse Practitioner as directed. Dr. Jesus Alberto MD I have performed a history and physical examination and medical decision making of this patient, discussed the same with the dictator, and agree with the dictators assessment and plan as written, documented as a scribe. Based on total visit time, I have performed more than 50% of this visit. Objective - Vital Signs Vital signs: Vital Signs Temp 99.0 F 01/28/25 12:00 Pulse 78 01/28/25 20:00 Resp 21 01/28/25 20:00 BP 118/62 01/28/25 20:00 Pulse Ox 98 01/28/25 20:00 FiO2 50 01/24/25 21:10 Intake & Output 01/28/25 01/28/25 01/29/25 06:59 18:59 06:59 Intake Total 791.283 693.983 0 Output Total 580 335 Balance 211.283 358.983 0 Weight 100 kg Intake: IV 717 460 0 CO/CI 80 20 Pressure 117 90 0 Sodium Chloride 0.9% 1, 520 350 000 ml @ 30 mls/hr IV . Q24H [facility] Rx#:[id number] Intake, IV Titration 74.283 233.983 Amount Albumin Human 25% 50 ml 50 In Empty Bag 1 bag @ 50 mls/hr IVPB ONCE ONE Rx#: [id number] Magnesium Sulfate-D5w Pmx 100 1 gm In Dextrose/Water 1 100ml.bag @ 100 mls/hr IVPB ONCE ONE Rx#: [id number] Milrinone-D5w Pmx 20 mg 74.283 83.983 In Dextrose/Water 1 100ml .bag @ 0.1 MCG/KG/MIN 3. 063 mls/hr IV .Q24H [facility] Rx#:[id number] Output: Urine 580 335 Other: Voiding Method Indwelling Catheter External Catheter External Catheter # Voids 1 1 # Bowel Movements 2 1 ABP, PAP, CO, CI - Last Documented Arterial Blood Pressure 129/44 Pulmonary Artery Pressure 38/19 Cardiac Output 5.1 Cardiac Index 2.4 - Labs CBC & Chem 7: 01/28/25 03:46 01/28/25 11:54 Labs: Abnormal Lab Results - Last 24 Hours (Table) 01/27/25 01/28/25 01/28/25 Range/Units 23:58 00:15 03:42 WBC (4.50-10.00) 10*3/uL RBC (4.40-5.60) 10*6/uL Hgb (13.0-17.0) g/dL Hct (39.6-50.0) % Immature Gran # (0.00-0.04) 10*3/uL Neutrophils # (1.80-7.70) 10*3/uL ABG pO2 <30 L* (83-108) mmHg ABG Total CO2 26 H (19-24) mmol/L ABG O2 Saturation 49.2 L (94-97) % ABG Lactic Acid (0.5-1.6) mmol/L Hemoglobin 8.3 L (13.0-17.5) gm/dL Sodium (137-145) mmol/L BUN (9-20) mg/dL Glucose (74-99) mg/dL POC Glucose (mg/dL) 114 H 117 H (70-110) mg/dL Calcium (8.4-10.2) mg/dL Total Bilirubin (0.2-1.3) mg/dL AST (17-59) U/L ALT (4-49) U/L Total Protein (6.3-8.2) g/dL Albumin (3.5-5.0) g/dL 01/28/25 01/28/25 01/28/25 Range/Units 03:46 03:46 03:46 WBC 11.28 H (4.50-10.00) 10*3/uL RBC 2.53 L (4.40-5.60) 10*6/uL Hgb 8.0 L (13.0-17.0) g/dL Hct 23.3 L (39.6-50.0) % Immature Gran # 0.06 H (0.00-0.04) 10*3/uL Neutrophils # 8.80 H (1.80-7.70) 10*3/uL ABG pO2 <30 L* (83-108) mmHg ABG Total CO2 26 H (19-24) mmol/L ABG O2 Saturation 47.3 L (94-97) % ABG Lactic Acid (0.5-1.6) mmol/L Hemoglobin 8.1 L (13.0-17.5) gm/dL Sodium 130 L (137-145) mmol/L BUN 26 H (9-20) mg/dL Glucose 101 H (74-99) mg/dL POC Glucose (mg/dL) (70-110) mg/dL Calcium 8.3 L (8.4-10.2) mg/dL Total Bilirubin 1.8 H (0.2-1.3) mg/dL AST 317 H (17-59) U/L ALT 230 H (4-49) U/L Total Protein 4.7 L (6.3-8.2) g/dL Albumin 2.7 L (3.5-5.0) g/dL 01/28/25 01/28/25 01/28/25 Range/Units 07:54 08:00 11:50 WBC (4.50-10.00) 10*3/uL RBC (4.40-5.60) 10*6/uL Hgb (13.0-17.0) g/dL Hct (39.6-50.0) % Immature Gran # (0.00-0.04) 10*3/uL Neutrophils # (1.80-7.70) 10*3/uL ABG pO2 <30 L* (83-108) mmHg ABG Total CO2 26 H (19-24) mmol/L ABG O2 Saturation 49.4 L (94-97) % ABG Lactic Acid (0.5-1.6) mmol/L Hemoglobin 8.4 L (13.0-17.5) gm/dL Sodium (137-145) mmol/L BUN (9-20) mg/dL Glucose (74-99) mg/dL POC Glucose (mg/dL) 112 H 123 H (70-110) mg/dL Calcium (8.4-10.2) mg/dL Total Bilirubin (0.2-1.3) mg/dL AST (17-59) U/L ALT (4-49) U/L Total Protein (6.3-8.2) g/dL Albumin (3.5-5.0) g/dL 01/28/25 01/28/25 01/28/25 Range/Units 11:54 11:57 16:36 WBC (4.50-10.00) 10*3/uL RBC (4.40-5.60) 10*6/uL Hgb (13.0-17.0) g/dL Hct (39.6-50.0) % Immature Gran # (0.00-0.04) 10*3/uL Neutrophils # (1.80-7.70) 10*3/uL ABG pO2 <30 L* (83-108) mmHg ABG Total CO2 25 H (19-24) mmol/L ABG O2 Saturation 50.4 L (94-97) % ABG Lactic Acid 2.3 H* (0.5-1.6) mmol/L Hemoglobin 8.3 L (13.0-17.5) gm/dL Sodium (137-145) mmol/L BUN (9-20) mg/dL Glucose (74-99) mg/dL POC Glucose (mg/dL) 156 H (70-110) mg/dL Calcium (8.4-10.2) mg/dL Total Bilirubin (0.2-1.3) mg/dL AST (17-59) U/L ALT (4-49) U/L Total Protein (6.3-8.2) g/dL Albumin (3.5-5.0) g/dL Microbiology - Last 24 Hours (Table) 01/27/25 10:04 Blood Culture - Preliminary Blood 01/26/25 13:25 Urine Culture - Final Urine,Catheterized Assessment and Plan Time with Patient: Less than 30
--- NOTE | 2025-01-29 06:31 | XR ---
EXAMINATION TYPE: XR chest 1V portable DATE OF EXAM: 01/29/2025 CLINICAL INDICATION: Male, 74 years old with history of Postop CABG, progress study. TECHNIQUE: Single AP portable semiupright view of the chest is obtained. COMPARISON: Prior chest x-ray from yesterday and older studies. FINDINGS: Overlying sternal wires and mediastinal clips and left atrial appendage are all redemonstr ated. Interval removal of left internal jugular Deeth-Ava catheter. Persistent mild cardiomegaly and moderate central increased opacities along with small pleural effus ions bilaterally are redemonstrated. Osseous structures are intact. IMPRESSION: Findings suggests continued CHF exacerbation/fluid overload state. Small to moderate size bilateral pleural effusions are felt more prominent versus one day earlier. [facility], , 01/29/2025 6:29 AM
[2025-01-29 06:37] LABS: Glucose,Whole Blood 92 mg/dL (70-110)
[2025-01-29] MEDS ORDERED: SENNOSIDES-DOCUSATE SODIUM 1 EACH TAB PO PRN (07:02)
[2025-01-29 07:57] LABS: Basophils # (A) 0.05 10*3/uL (0.00-0.10); Basophils % (A) 0.5 %; Eosinophils # (A) 0.07 10*3/uL (0.04-0.35); Eosinophils % (A) 0.8 %; HCT 27.2 % (39.6-50.0); HGB 8.8 g/dL (13.0-17.0); Lymphocytes # (A) 1.62 10*3/uL (0.90-5.00); Lymphocytes % (A) 17.4 %; MCH 30.8 pg (27.0-32.0); MCHC 32.4 g/dL (32.0-37.0); MCV 95.1 fL (80.0-97.0); Mean Platelet Volume 10.4 fL (9.5-12.2); Monocytes # (A) 0.45 10*3/uL (0.20-1.00); Monocytes % (A) 4.8 %; Neutrophils % (A) 75.1 %; Platelet Count 241 10*3/uL (140-440); RBC 2.86 10*6/uL (4.40-5.60); RDW 16.6 % (11.5-14.5); WBC 9.32 10*3/uL (4.50-10.00)
--- NOTE | 2025-01-29 08:09 | P.PN ---
Subjective Progress Note Date: 01/29/25 Principal diagnosis: Multivessel coronary artery disease, non-ST elevated myocardial infarction this admission. History of coronary artery disease with myocardial infarction and p revious stent placement to his circumflex coronary artery and left anterior descending coronary artery in August 2017, hypertension, hyperlipidemia, obesity, lifetime non-smoker POD #5 coronary artery bypass graft x 3 with left internal mammary artery to the left anterior descending artery, left radial artery to the obtuse marginal artery, reverse saphenous vein graft to the posterior descending artery, endoscopic vein harvesting of the left greater saphenous vein, endoscopic harvesting of the left radial artery, ligation of the left atrial appendage with a 35 mm AtriClip, epiaortic ultrasound, intraoperative transesophageal echocardiogram, graft flow measurements using the Timeet system Acute blood loss anemia, expected given hemodilution and cardiopulmonary bypass pump Hypotension, somewhat expected due to vasoplegia as well as acute blood loss Right pleural effusion, status post right thoracentesis performed by Dr. Osborne from pulmonary medicine. Postoperative paroxysmal atrial fibrillation, a known common occurrence after cardiac surgery. Elevated transaminases, likely due to hypotension as well as medication induced The patient was seen and examined this morning sitting up in recliner in the intensive care unit with no acute distress. Remains in sinus rhythm, he modynamically stable. Remains on IV Primacor. Currently on room air with oxygen saturation in the high 90s, able to achieve 1000 mL on incentive spirometry. Denies significant pain or shortness of breath. Has been up ambulating short distances with a walker and assistance. No other new concerns. Objective - Vital Signs Vital signs: Vital Signs Temp 98.4 F 01/29/25 00:00 Pulse 90 01/29/25 07:00 Resp 20 01/29/25 07:00 BP 119/65 01/29/25 07:00 Pulse Ox 100 01/29/25 07:00 FiO2 50 01/24/25 21:10 Intake & Output 01/28/25 01/29/25 01/29/25 18:59 06:59 18:59 Intake Total 693.983 200 10 Output Total 335 500 0 Balance 358.983 -300 10 Weight 100.5 kg Intake: IV 460 100 10 CO/CI 20 Pressure 90 0 Sodium Chloride 0.9% 1, 350 100 10 000 ml @ 30 mls/hr IV . Q24H [facility] Rx#:[id number] Intake, IV Titration 233.983 100 Amount Albumin Human 25% 50 ml 50 In Empty Bag 1 bag @ 50 mls/hr IVPB ONCE ONE Rx#: [id number] Magnesium Sulfate-D5w Pmx 100 1 gm In Dextrose/Water 1 100ml.bag @ 100 mls/hr IVPB ONCE ONE Rx#: [id number] Milrinone-D5w Pmx 20 mg 83.983 100 In Dextrose/Water 1 100ml .bag @ 0.1 MCG/KG/MIN 3. 063 mls/hr IV .Q24H [facility] Rx#:[id number] Output: Urine 335 500 0 Other: Voiding Method External Catheter External Catheter # Voids 1 1 # Bowel Movements 0 0 ABP, PAP, CO, CI - Last Documented Arterial Blood Pressure 129/44 Pulmonary Artery Pressure 38/19 Cardiac Output 5.1 Cardiac Index 2.4 - Exam CONSTITUTIONAL: Appears comfortable, cooperative, no acute distress RESPIRATORY: Lungs sounds diminished in the bases bilaterally. Respirations even, nonlabored. Currently on room air with oxygen saturation 98%. Able to achieve 1000 mL on incentive spirometry. Strong cough. CARDIOVASCULAR: S1, S2 present. Regular rate and rhythm, sinus rhythm on telemetry. Sternum stable. Palpable peripheral pulses bilaterally. Gene ralized edema present. No calf pain or tenderness noted. Heart hugger, antiembolism stockings, SCDs present. GASTROINTESTINAL: Abdomen soft, nontender, nondistended. Active bowel sounds present 4 quadrants. Tolerating diet. Positive bowel movement 01/28 GENITOURINARY: External jefferson present draining concentrated yellow urine. Output 835 mL in the last 24 hours INTEGUMENTARY: Skin is warm and dry with evidence of good perfusion. Anterior chest incision well approximated and covered with dry intact dressing. Left lower extremity EVH site well approximated without redness or drainage. NEUROLOGIC: Cranial nerves II through XII intact MUSKULOSKELETAL: Able to move all extremities, strength equal bilaterally, gait slow with walker PSYCHIATRIC: Alert and oriented to person place and time, slow to respond per his baseline INVASIVE LINES AND TUBES: A/V epicardial pacemaker wires present, connected to generator, backup rate 50 bpm - Allied health notes Allied health notes reviewed: nursing - Labs CBC & Chem 7: 01/29/25 07:33 01/29/25 07:33 Labs: Abnormal Lab Results - Last 24 Hours (Table) 01/28/25 01/28/25 01/28/25 Range/Units 07:54 08:00 11:50 ABG pO2 <30 L* (83-108) mmHg ABG Total CO2 26 H (19-24) mmol/L ABG O2 Saturation 49.4 L (94-97) % ABG Lactic Acid (0.5-1.6) mmol/L Hemoglobin 8.4 L (13.0-17.5) gm/dL POC Glucose (mg/dL) 112 H 123 H (70-110) mg/dL 01/28/25 01/28/25 01/28/25 Range/Units 11:54 11:57 16:36 ABG pO2 <30 L* (83-108) mmHg ABG Total CO2 25 H (19-24) mmol/L ABG O2 Saturation 50.4 L (94-97) % ABG Lactic Acid 2.3 H* (0.5-1.6) mmol/L Hemoglobin 8.3 L (13.0-17.5) gm/dL POC Glucose (mg/dL) 156 H (70-110) mg/dL Microbiology - Last 24 Hours (Table) 01/27/25 10:04 Blood Culture - Preliminary Blood 01/26/25 13:25 Urine Culture - Final Urine,Catheterized - Imaging and Cardiology Chest x-ray: report reviewed, image reviewed Assessment and Plan Assessment: Multivessel coronary artery disease, non-ST elevated myocardial infarction this admission status post three-vessel CABG Acute blood loss anemia, expected given hemodilution and cardiopulmonary bypass pump Hypotension, somewhat expected due to vasoplegia as well as acute blood loss Right pleural effusion, status post right thoracentesis performed by Dr. Osborne from pulmonary medicine. Postoperative paroxysmal atrial fibrillation, a known common occurrence after cardiac surgery. Elevated transaminases, likely due to hypotension as well as medication induced History of coronary artery disease with myocardial infarction and previous stent placement to Cx and LAD in August 2017 Hypertension Hyperlipidemia, cholesterol 174, LDL 100.8, triglycerides 139 Obesity Lifetime non-smoker Developmental delay Plan: Continue to maximize medical therapy with aspirin, Plavix, beta-trixie. Will increase beta-trixie therapy as tolerated. Will restart statin once liver enzymes normalize Continue midodrine to support blood pressure, decreased to 10 mg twice daily today Continue low-dose Primacor, decreased to 0.125 mcg/kg/min Encourage incentive spirometry use. Bronchodilators per pulmonology Will monitor daily labs and x-rays. Electrolyte replacement per protocol. Will give 1 g calcium gluconate slowly Increase activity as tolerated. PT/OT/cardiac rehab following GI/DVT prophylaxis Continue to monitor strict accurate intake and output Insulin management per internal medicine. Patient is not diabetic, preoperative hemoglobin A1c 5.4% Pain control per current medication regimen. No narcotics More recommendations to follow
[2025-01-29 08:26] LABS: ALT 161 U/L (4-49); AST 89 U/L (17-59); African American GFR (CKD) >90 (>60 ml/min/1.73 sqM); Alkaline Phosphatase 119 U/L (38-126); Anion Gap 6 mmol/L; Blood Urea Nitrogen 21 mg/dL (9-20); Calcium 8.5 mg/dL (8.4-10.2); Carbon Dioxide 24 mmol/L (22-30); Chloride 102 mmol/L (98-107); Glucose 134 mg/dL (74-99); Magnesium 2.2 mg/dL (1.6-2.3); Non-African American GFR(CKD) 90 (>60 ml/min/1.73 sqM); Potassium 4.2 mmol/L (3.5-5.1); Sodium 132 mmol/L (137-145); Total Bilirubin 1.7 mg/dL (0.2-1.3); Total Protein 5.3 g/dL (6.3-8.2)
--- NOTE | 2025-01-29 09:31 | P.PN ---
Subjective Progress Note Date: 01/29/25 This is a 74-year-old white male known history of coronary artery disease, previous stenting of circumflex and LAD, known history of hypertension, dyslipidemia, patient presented to the hospital on 01/16 with chest pain suggestive of acute coronary syndrome. Patient was seen by cardiology and he was felt to have non-ST elevation myocardial infarction started patient initially on heparin aspirin atorvastatin and metoprolol. Patient underwent cardiac catheterization, he was found to have multivessel coronary artery disease, seen by cardiothoracic surgery on consultation, and the plan is to proceed with myocardial revascularization. Workup so far included CT of the chest, it showed no acute thoracic process, it also showed nonspecific pulmonary nodules measuring up to 4 mm, and he was found to have cholelithiasis. Patient states that he is quite active, patient walks on a daily basis, and he never smoked. Denies any cough wheezing shortness of breath. Denies any fever or chills or hemoptysis. Going back to his cardiac catheterization, it showed three-vessel coronary artery disease with 80 to 90% stenosis of the LAD, 95% stenosis to the ostial circumflex coronary artery 70 to 80% stenosis to the ostium of the PLV coronary artery and 50 to 60% to the PDA coronary artery. Seen today on 01/22/2025, patient is now scheduled for myocardial revascularization on Friday. Doing well, asymptomatic, achieving over 1500 cc on incentive spirometry, not in any distress no cough no wheezing no shortness of breath, electrolytes are normal renal profile is normal CBC is normal Patient was seen today on 01/23/2025, patient is resting in bed, does not seem to be in any distress, supposed to undergo myocardial revascularization tomorrow. Patient did develop some component of pulmonary edema as noted on his follow-up chest x-ray, received diuretics/Lasix, and seems to be clinically better. Baseline FEV1 is 61%, The patient is seen today January 24, 2025 in follow-up in the intensive care unit. He is now status post coronary artery bypass grafting with a CHOE to the LAD RHA to the OM, SVG to the PDA and left atrial appendage clipping. Currently on the mechanical ventilator and assist-control mode at a rate of 16, tidal volume 500 and FiO2 100% and a PEEP of 10. Arterial blood gases revealed a PaO2 of 367, PEF126 and a pH of 7.38. He is currently on a nitroglycerin drip at 5 mcg/min. 7 5 mcg/kg/min. Norepinephrine at 0.07 mcg/kg/min. Propofol at 20 mcg/kg/min. Normal saline at 50 mL/h. He has a right, left and mediastinal chest tube in place. Cardiac output 4.4. Cardiac index 2.1. PA pressure 26/12. He did receive 2 units of fresh frozen plasma and 1 albumin since his return from the OR. White count 9.8. Hemoglobin 7.0. Platelets 106. Sodium 135. Potassium 4.4. Bicarb 23. BUN 14. Creatinine 0.62. Glucose 116. He is initiated on DuoNeb ventilations. Heparin for DVT prophylaxis. The patient is seen today January 25, 2025 in follow-up in the intensive care unit. He is was extubated last evening at 22:15. Currently maintaining O2 saturations in the high 90s on 6 L high flow nasal cannula. Core temperature 100.6. Slightly tachycardic at 114. Blood pressure 134/51. PA pressure 46/28. CVP 16. Cardiac output 5.6. Cardiac index 2.7. Vasopressin and norepinephrine have been weaned off. He remains on Primacor at 0.1 mcg/kg/min. Insulin drip at 1 unit/h. Normal saline at 50 mL/h. Remains on bronchodilators. Remains on heparin for DVT prophylaxis. He inadvertently pulled out his [place]-Ava catheter earlier this morning. This was replaced by anesthesia. Arterial blood gases revealed a PaO2 of 70, PCO2 of 34, pH 7.43. Chest x-ray revealed postoperative changes, mild pulmonary edema. Small right pleural effusion. Right, left and mediastinal chest tubes remain in place. Pacer wires remain in place. Status post 2 units of packed red blood cells, 2 units of fresh frozen plasma, 1 unit of platelets. Lites 103. Sodium 135. Potassium 4.0. Bicarb 24. BUN 16. Creatinine 0.63. Glucose 119. Albumin 3.3. The patient is seen today January 26, 2025 in follow-up in the intensive care unit. He is currently sitting up in bed. Awake and alert in no acute distress. He is maintaining O2 saturations in the 90s on room air oxygen. He is pulling only about 750 to 1000 mL on the incentive spirometer. He remains on insulin drip at 1 unit/h. Primacor drip at 0.1 mcg/kg/min. Normal saline at 50 mL/h. Right, left, mediastinal chest tubes remain in place. Cardiac output 5.3. Cardiac index 2.5. PA pressure 42/17. CVP 8. Core temperature 100.6. Chest x-ray reveals cardiomegaly with small right pleural effusion and bilateral venous congestion. He is status post 2 units of packed red blood cells, 2 units of fresh frozen plasma, 1 unit of platelets. White count 14.1. Hemoglobin 8.2. Platelets 145. Sodium 134. Potassium 4.1. Bicarb 21. BUN 19. Creatinine 0.70. Glucose 114. He remains on DuoNeb inhalations. Heparin for DVT prophylaxis. The patient is seen today January 27, 2025 in follow-up in the intensive care unit. He is currently up in a chair at the bedside. Awake and alert in no acute distress. Maintaining O2 saturations in the 90s on 2 L/min per nasal cannula. Today's chest x-ray improvement post right sided thoracentesis yesterday. 1 L of bloody fluid returned. Blood gases revealed a PaO2 of 122. pCO2 29 pH 7.46 on 30% FiO2. 2 units of packed red blood cells. 2 units of fresh frozen plasma. 1 unit of platelets. 6. Platelets 135. Sodium 131. Potassium 4.3. Bicarb 21. BUN 26. Creatinine 0.83. Glucose 131. Well. PA pressure 37/14. CVP 7. Cardiac output 3.4. Cardiac index 1.6. Chest tubes have been removed. Pacer wires in place with backup pacing VVI at 50 bpm. Left [place]-Ava internal jugular catheter remains in place. The patient is seen today January 28, 2025 in follow-up in the intensive care unit. Postoperative day #4. He is currently up in a chair at the bedside. Awake and alert in no acute distress. Maintaining good O2 saturations in the 90s on room air oxygen. He is currently in sinus rhythm. He is on normal saline at 30 mL/h. Primacor at 0.25 mcg/kg/min. Left IJ [place]-Ava catheter remains in place. Cardiac output 5.2. Cardiac index 2.5. PA pressure 40/18. CVP 10. Chest x-ray shows mild fluid volume overload. Basilar atelectasis. He is status post 3 units of packed red blood cells, 2 units of fresh frozen plasma and 1 unit of platelets this admission. Culture revealed no growth. White count 11.2. Hemoglobin 8.0. Platelets 152. Sodium 130. Potassium 3.8. Bicarb 23. BUN 26. Creatinine 0.68. AST 317. ALT 230. Albumin 2.7. He is continued on DuoNeb inhalations. Heparin for DVT prophylaxis. Protonix for GI prophylaxis. The patient is seen today January 29, 2025 in follow-up in the intensive care unit. Postoperative day #5. He is currently sitting up in a chair at the bedside. Awake and alert in no acute distress. Maintaining good O2 saturations in the 90s on room air. He has been afebrile. Hemodynamically stable. He does continue on Primacor at 0.25 mcg/kg/min. Normal saline at KVO. Chest x-ray reveals some mild fluid volume overload with small bilateral pleural effusions. Is working well with the incentive spirometer. He remains on bronchodilators. Heparin for DVT prophylaxis. White count 9.3. Hemoglobin 8.8. Platelets 241. Sodium 132. Potassium 4.2. Bicarb 24. BUN 21. Creatinine 0.74. Glucose 134. AST 89. ALT 161. Albumin 3.0. Objective - Vital Signs Vital signs: Vital Signs Temp 98.4 F 01/29/25 00:00 Pulse 90 01/29/25 08:34 Resp 29 H 01/29/25 08:00 BP 109/73 01/29/25 08:00 Pulse Ox 96 01/29/25 08:27 FiO2 50 01/24/25 21:10 Intake & Output 01/28/25 01/29/25 01/29/25 18:59 06:59 18:59 Intake Total 693.983 200 20 Output Total 335 500 500 Balance 358.983 -300 -480 Weight 100.5 kg Intake: IV 460 100 20 CO/CI 20 Pressure 90 0 Sodium Chloride 0.9% 1, 350 100 20 000 ml @ 30 mls/hr IV . Q24H [facility] Rx#:[id number] Intake, IV Titration 233.983 100 Amount Albumin Human 25% 50 ml 50 In Empty Bag 1 bag @ 50 mls/hr IVPB ONCE ONE Rx#: [id number] Magnesium Sulfate-D5w Pmx 100 1 gm In Dextrose/Water 1 100ml.bag @ 100 mls/hr IVPB ONCE ONE Rx#: [id number] Milrinone-D5w Pmx 20 mg 83.983 100 In Dextrose/Water 1 100ml .bag @ 0.1 MCG/KG/MIN 3. 063 mls/hr IV .Q24H [facility] Rx#:[id number] Output: Urine 335 500 500 Other: Voiding Method External Catheter External Catheter External Catheter # Voids 1 1 # Bowel Movements 0 0 ABP, PAP, CO, CI - Last Documented Arterial Blood Pressure 129/44 Pulmonary Artery Pressure 38/19 Cardiac Output 5.1 Cardiac Index 2.4 - Exam GENERAL EXAM: Alert, pleasant, weak 74-year-old male, on room air oxygen, up in a chair, in no acute distress HEAD: Normocephalic. EYES: Normal reaction of pupils, equal size. NOSE: Clear with pink turbinates. THROAT: No erythema or exudates. NECK: No masses, no JVD. CHEST: Sternal dressing dry and intact. Heart hugger in place. Pacer wires in place. LUNGS: Equal air entry with few scattered rhonchi, crackles in the right lung base. CVS: S1 and S2 normal with no audible murmur, regular rhythm. ABDOMEN: No hepatosplenomegaly, no guarding or rigidity. SPINE: No scoliosis or deformity SKIN: No rashes CENTRAL NERVOUS SYSTEM: Sedated, tone is normal in all 4 extremities. EXTREMITIES: Bilateral lower extremities with SERENITY hose, SCDs. Peripheral pulses are intact. - Labs CBC & Chem 7: 01/29/25 07:33 01/29/25 07:33 Labs: Abnormal Lab Results - Last 24 Hours (Table) 01/28/25 01/28/25 01/28/25 Range/Units 11:50 11:54 11:57 RBC (4.40-5.60) 10*6/uL Hgb (13.0-17.0) g/dL Hct (39.6-50.0) % Immature Gran # (0.00-0.04) 10*3/uL ABG pO2 <30 L* (83-108) mmHg ABG Total CO2 25 H (19-24) mmol/L ABG O2 Saturation 50.4 L (94-97) % ABG Lactic Acid 2.3 H* (0.5-1.6) mmol/L Hemoglobin 8.3 L (13.0-17.5) gm/dL Sodium (137-145) mmol/L BUN (9-20) mg/dL Glucose (74-99) mg/dL POC Glucose (mg/dL) 123 H (70-110) mg/dL Total Bilirubin (0.2-1.3) mg/dL AST (17-59) U/L ALT (4-49) U/L Total Protein (6.3-8.2) g/dL Albumin (3.5-5.0) g/dL 01/28/25 01/29/25 01/29/25 Range/Units 16:36 07:33 07:33 RBC 2.86 L (4.40-5.60) 10*6/uL Hgb 8.8 L (13.0-17.0) g/dL Hct 27.2 L (39.6-50.0) % Immature Gran # 0.13 H (0.00-0.04) 10*3/uL ABG pO2 (83-108) mmHg ABG Total CO2 (19-24) mmol/L ABG O2 Saturation (94-97) % ABG Lactic Acid (0.5-1.6) mmol/L Hemoglobin (13.0-17.5) gm/dL Sodium 132 L (137-145) mmol/L BUN 21 H (9-20) mg/dL Glucose 134 H (74-99) mg/dL POC Glucose (mg/dL) 156 H (70-110) mg/dL Total Bilirubin 1.7 H (0.2-1.3) mg/dL AST 89 H (17-59) U/L ALT 161 H (4-49) U/L Total Protein 5.3 L (6.3-8.2) g/dL Albumin 3.0 L (3.5-5.0) g/dL Microbiology - Last 24 Hours (Table) 01/27/25 10:04 Blood Culture - Preliminary Blood 01/26/25 13:25 Urine Culture - Final Urine,Catheterized Assessment and Plan Assessment: Multivessel coronary artery disease. Status postcoronary artery bypass grafting x 3 with a CHOE to the LAD, RAH to the OM, SVG to the PDA with left atrial appendage clipping. Postoperative day #5 Mechanical ventilator management, expected outcome of surgery recovered and on room air oxygen Right sided pleural effusion, status postthoracentesis on 01/26/2025 with 1 L removed Acute blood loss anemia, expected outcome of surgery, required 3 units of packed red blood cells Acute non-ST elevation myocardial infarction, previous history of GA in 2017 History of previous stent placement to circumflex and LAD in 2017 Benign essential hypertension Lifetime non-smoker Nonspecific pulmonary nodules sub-5 mm Dyslipidemia Benign essential hypertension Plan: The patient was seen and evaluated Chest x-ray, labs and medications reviewed Pacer wires remain in place Stable on room air oxygen Continue bronchodilators Heparin for DVT prophylaxis Continued use of the incentive spirometer Increase his activity as tolerated We will continue to follow I have personally seen and examined the patient, performed the documentation and the assessment and plan as written. Number of minutes spent on the visit: 10 Dictation was produced using [employer] dictation software. Please excuse any grammatical, word or spelling errors.
[2025-01-29] MEDS: CALCIUM GLUCONATE IN NACL 1 GM in SALINE 1 100ML.BAG IVPB ONE (09:35)
[2025-01-29 11:12] LABS: Glucose,Whole Blood 150 mg/dL (70-110)
--- NOTE | 2025-01-29 14:26 | P.PN ---
Subjective Progress Note Date: 01/29/25 01/17/2025 this is 74-year-old gentleman, follows with [facility] with past medical history significant for CAD, TX with stents of the circumflex and LAD, morbid obesity, hypertension, hyperlipidemia and multiple other medical issues brought into the ER via EMS from [facility] yesterday secondary to complaints of chest pain. Patient reports during [facility] he developed midsternal chest pain/tingling, nonradiating accompanied by increased shortness of breath and lightheadedness. Denies nausea, vomiting or diarrhea.denies abdominal pain.Patient responds slowly but appropriate;baseline as per PCP.Does not drive, uses the [facility] for transportation. Patient was initiated on IV heparin drip related to elevated troponins. EKG reported sinus tachycardia. Troponins 0.090, 3.400. D-dimer WNL, 0.26. Afebrile, normal WBC, hemoglobin 14.6, platelets 255, INR 1. 137, potassium 4 1, bicarb 24, creatinine 0.62, glucose 103, magnesium 1.6. proBNP 1550, TSH 3.740. Viral studies negative. Chest x-ray reported no acute cardiopulmonary disease/process. Currently denies chest pain, palpitations or shortness of breath.Maintaining O2 sats in the high 90s to 100% on room air. 01/18/2025 completed cardiac catheterization yesterday reported severe triple- vessel disease; proximal RCA 70 to 80% stenosis, mid RCA 60% stenosis,Ostium of the PLV 70% and PDA has 50 to 60% stenosis. Circumflex coronary artery 95% ostial stenosis. LAD 80 to 90% stenosis proximally in the ostial portion. LV fu nction/echo pending. Evaluated by cardiothoracic surgery yesterday, felt to be high risk candidate. Brother Arvind at bedside, disclosed that patient had run out of medications, timeframe unknown. Currently denies chest pain, palpitations or shortness of breath. Telemetry sinus rhythm. 01/19/2025 anticoagulated on IV heparin drip. Maintained on beta-trixie, statin and aspirin. Echo results pending. Telemetry sinus rhythm .denies chest pain, palpitations or shortness of breath. Denies lightheadedness dizziness or focal deficits. Incentive spirometer up to 1999. 01/20/2025 Patient evaluated today on the cardiac unit. Sitting up in the chair. No acute complaints. Heparin gtt currently off. Echocardiogram reveals EF 35% with apical, septal and inferior hypokinesis. Trace to mild MR, mild aortic stenosis, mild AR. Patient is being considered for open heart surgery. 01/21/2025 Patient is evaluated today in follow up. He is sitting up in the chair. Having no acute complaints. Remains off IV heparin at this time. He will be going for open heart surgery on Friday. 01/22/2025 Patient is evaluated today in f/u. Patient sitting up in the chair with no acute complaints. Tolerating diet. He is saturating 95% on room air. 01/23/2025 Patient evaluated today in follow up. Reports no acute complaints, denies any chest pressure, chest pain. Denies shortness of breath. Chest xray this morning reveals mild cardiomegaly with new right greater than left acute infiltrates and or edema. He received IV lasix 40 mg dose today. Sodium of 136, potassium 4.1, BUN 16, creatinine 0.70. White blood cell count 7.70, hgb 11.9. Patient is afebrile, heart rate 82, blood pressure 101/59, 95% on 2L of oxygen via nasal cannula. 01/24/2025 Patient going for open heart today and will be moved to the ICU post surgery. Chest xray today reveals mild cardiomegaly, and medium diffuse interstitial opacities which show slight improvement from prior. 01/25/2025 Patient evaluated today in the ICU. Patient is in soft wrist restraints. [place]- shonna catheter was pulled out this AM. It has been replaced. He received 1 unit of PRBC and was started on vasopresors and primacor gtt. Chest tubes x 3 noted. AM chest xray reveals post-CABG changes with residual interstitial pulmonary edema, some the previous patchy changes have improved. Ongoing small right pleural effusion with adjacent atelectasis and or consolidation noted. WBC 10.99, hgb 8.0, sodium 135, BUN 16, creatinine 0.93. 01/26/2025 Patient evaluated in the ICU. He is postoperative day #2 three-vessel cabg. He has been febrile with T-Max 100.6 in the last 24 hours. Chest xray reveal pleural effusion. Patient underwent right sided thoracentesis today 950 mL of fluid off. Also procal was bumped at 0.67. Urinalysis slightly abnormal. Will follow up with CT surgery for antibiotic needs. White blood cell count is 14.13. He remains on IV insulin; with plans to transition to sliding scale tomorrow. 01/27/2025 Patient evaluated in the ICU. He is more awake and alert today. Postoperative day #3 three-vessel CABG. Fever has been better. Chest xray reveals continued CHF. Echocardiogram reveals EF 40% hypokinesia of severe degree involving the distal septum and adjoining apex. No pericardial effusion noted. Chest tubes have been removed. Patients blood glucose has been controlled. 01/28/2025 Patient is evaluated today in the ICU. Sitting up in the chair. No acute complaints at this time. He is postoperative day #4 three-vessel CABG. Chest xray reveals continued CHF/fluid overload state. New bilateral upper lung acute infiltrates and or atelectasis noted. WBC 11.28, hgb 8.0, sodium 130, potassium 3.9, BUN 26, creatinine 0.68. Mag 2.0. LFTs elevated and trending upwards. Urine culture negative. Blood glucose remains on controlled on sliding scale insulin. 01/29/2025 Patient is evaluated in follow-up in the intensive care unit. He is currently sitting up in the chair. He is doing well he is postoperative day #5 three- vessel CABG. Primacor drip continues to be weaned off. He will be evaluated for IPR on Friday. His blood glucose has been controlled on a sliding scale insulin. Review of Systems Constitutional: Denied any fatigue denied any fever. Cardio vascular: denied any chest pain, palpitations Gastrointestinal: denied any nausea, vomiting, diarrhea Pulmonary: Denied any shortness of breath cough Neurologic denied any new focal deficits All inpatient medications were reviewed and appropriate changes in these medications as dictated in the interval history and assessment and plan. PHYSICAL EXAMINATION: GENERAL: The patient is alert and oriented x2-3, not in any acute distress. Well developed, well nourished. HEENT: Pupils are round and equally reacting to light. EOMI. No scleral icterus. No conjunctival pallor. Normocephalic, atraumatic. No pharyngeal erythema. No thyromegaly. CARDIOVASCULAR: S1 and S2 present. No murmurs, rubs, or gallops. PULMONARY: Chest is clear to auscultation, no wheezing or crackles. ABDOMEN: Soft, nontender, nondistended, normoactive bowel sounds. No palpable organomegaly. MUSCULOSKELETAL: No joint swelling or deformity. EXTREMITIES: No cyanosis, clubbing, or pedal edema. Soft wrist restraints in place NEUROLOGICAL: No focal neurological deficits. SKIN: No rashes. Assessment NSTEMI, status post cardiac catheterization reporting triple-vessel disease Right sided pleural effusion CAD with history of TX 2017, stenting of circumflex and LAD, current ran out of his medications-states unclear on timeframe. Last refill RX recorded at [facility] as October 2019. Developmental delay, at baseline per PCP and patient's brother Arvind. Follows with [facility]. Fever; leukocytosis concern for UTI pending urine culture Volume overload status post IV lasix Hypertension Hyperlipidemia Morbid obesity, BMI 33 Plan -Patient is evaluated in the ICU post CABG -Status post thoracentesis -Chest tubes have been removed -[place]/Cordis remain in place -Continue current cardiac medications -Monitor electrolytes and renal function -Transition to sliding scale insulin ACHS The impression and plan of care has been dictated by Kandy Che, Nurse Practitioner as directed. Dr. Jesus Alberto MD I have performed a history and physical examination and medical decision making of this patient, discussed the same with the dictator, and agree with the dictators assessment and plan as written, documented as a scribe. Based on total visit time, I have performed more than 50% of this visit. Objective - Vital Signs Vital signs: Vital Signs Temp 98.8 F 01/29/25 12:00 Pulse 85 01/29/25 14:15 Resp 18 01/29/25 14:15 BP 117/54 01/29/25 14:15 Pulse Ox 98 01/29/25 14:15 FiO2 50 01/24/25 21:10 Intake & Output 01/28/25 01/29/25 01/29/25 18:59 06:59 18:59 Intake Total 693.983 200 97.741 Output Total 335 500 750 Balance 358.983 -300 -652.259 Weight 100.5 kg Intake: IV 460 100 80 CO/CI 20 Pressure 90 0 Sodium Chloride 0.9% 1, 350 100 80 000 ml @ 30 mls/hr IV . Q24H [facility] Rx#:[id number] Intake, IV Titration 233.983 100 17.741 Amount Albumin Human 25% 50 ml 50 In Empty Bag 1 bag @ 50 mls/hr IVPB ONCE ONE Rx#: [id number] Magnesium Sulfate-D5w Pmx 100 1 gm In Dextrose/Water 1 100ml.bag @ 100 mls/hr IVPB ONCE ONE Rx#: [id number] Milrinone-D5w Pmx 20 mg 83.983 100 17.741 In Dextrose/Water 1 100ml .bag @ 0.125 MCG/KG/MIN 3 .829 mls/hr IV .Q24H [facility] Rx#:[id number] Output: Urine 335 500 750 Other: Voiding Method External Catheter External Catheter External Catheter # Voids 1 1 # Bowel Movements 0 0 ABP, PAP, CO, CI - Last Documented Arterial Blood Pressure 129/44 Pulmonary Artery Pressure 38/19 Cardiac Output 5.1 Cardiac Index 2.4 - Labs CBC & Chem 7: 01/29/25 07:33 01/29/25 07:33 Labs: Abnormal Lab Results - Last 24 Hours (Table) 01/28/25 01/29/25 01/29/25 Range/Units 16:36 07:33 07:33 RBC 2.86 L (4.40-5.60) 10*6/uL Hgb 8.8 L (13.0-17.0) g/dL Hct 27.2 L (39.6-50.0) % Immature Gran # 0.13 H (0.00-0.04) 10*3/uL Sodium 132 L (137-145) mmol/L BUN 21 H (9-20) mg/dL Glucose 134 H (74-99) mg/dL POC Glucose (mg/dL) 156 H (70-110) mg/dL Total Bilirubin 1.7 H (0.2-1.3) mg/dL AST 89 H (17-59) U/L ALT 161 H (4-49) U/L Total Protein 5.3 L (6.3-8.2) g/dL Albumin 3.0 L (3.5-5.0) g/dL 01/29/25 Range/Units 11:11 RBC (4.40-5.60) 10*6/uL Hgb (13.0-17.0) g/dL Hct (39.6-50.0) % Immature Gran # (0.00-0.04) 10*3/uL Sodium (137-145) mmol/L BUN (9-20) mg/dL Glucose (74-99) mg/dL POC Glucose (mg/dL) 150 H (70-110) mg/dL Total Bilirubin (0.2-1.3) mg/dL AST (17-59) U/L ALT (4-49) U/L Total Protein (6.3-8.2) g/dL Albumin (3.5-5.0) g/dL Microbiology - Last 24 Hours (Table) 01/27/25 10:04 Blood Culture - Preliminary Blood Assessment and Plan Time with Patient: Less than 30
--- NOTE | 2025-01-29 16:01 | P.PN ---
Subjective Progress Note Date: 01/29/25 SUBJECTIVE: BP 117/54, heart rate 85 bpm Denies any chest pain chest pressure, coming along well, ambulating in the unit, denies any new cardiovascular symptoms No reported arrhythmias in last 24 hours PHYSICAL EXAMINATION Neck: Brisk carotid upstroke, no jugular venous distention. Lungs: Clear to auscultation. Heart: Regular rate and rhythm, S1-S2, no S3, no murmur or rub. Chest surgical scar healing appropriately Abdomen: Soft nontender, bowel sounds present, Extremities: No edema, Neuro: Alert, oriented, no focal neurological deficits. Detailed neuro exam was not performed. ASSESSMENT Multivessel CAD found on NSTEMI on admission. Status post CABG x 3 Atrial clip ligation Right pleural effusion status post right thoracentesis Postoperative paroxysmal atrial fibrillation, currently sinus rhythm PLAN Agree with current medical regimen by CT surgery team On low-dose milrinone drip at this time Nelson Hidalgo MD, FACC, RPVI Thank you for allowing [facility] to participate in this patient's care. Please contact us in case of any followup questions. Objective - Vital Signs Vital signs: Vital Signs Temp 98.8 F 01/29/25 12:00 Pulse 87 01/29/25 15:56 Resp 18 01/29/25 14:15 BP 117/54 01/29/25 14:15 Pulse Ox 98 01/29/25 14:15 FiO2 50 01/24/25 21:10 Intake & Output 01/28/25 01/29/25 01/29/25 18:59 06:59 18:59 Intake Total 693.983 200 97.741 Output Total 335 500 750 Balance 358.983 -300 -652.259 Weight 100.5 kg Intake: IV 460 100 80 CO/CI 20 Pressure 90 0 Sodium Chloride 0.9% 1, 350 100 80 000 ml @ 30 mls/hr IV . Q24H [facility] Rx#:[id number] Intake, IV Titration 233.983 100 17.741 Amount Albumin Human 25% 50 ml 50 In Empty Bag 1 bag @ 50 mls/hr IVPB ONCE ONE Rx#: [id number] Magnesium Sulfate-D5w Pmx 100 1 gm In Dextrose/Water 1 100ml.bag @ 100 mls/hr IVPB ONCE ONE Rx#: [id number] Milrinone-D5w Pmx 20 mg 83.983 100 17.741 In Dextrose/Water 1 100ml .bag @ 0.125 MCG/KG/MIN 3 .829 mls/hr IV .Q24H [facility] Rx#:[id number] Output: Urine 335 500 750 Other: Voiding Method External Catheter External Catheter External Catheter # Voids 1 1 # Bowel Movements 0 0 ABP, PAP, CO, CI - Last Documented Arterial Blood Pressure 129/44 Pulmonary Artery Pressure 38/19 Cardiac Output 5.1 Cardiac Index 2.4 - Labs CBC & Chem 7: 01/29/25 07:33 01/29/25 07:33 Labs: Abnormal Lab Results - Last 24 Hours (Table) 01/28/25 01/29/25 01/29/25 Range/Units 16:36 07:33 07:33 RBC 2.86 L (4.40-5.60) 10*6/uL Hgb 8.8 L (13.0-17.0) g/dL Hct 27.2 L (39.6-50.0) % Immature Gran # 0.13 H (0.00-0.04) 10*3/uL Sodium 132 L (137-145) mmol/L BUN 21 H (9-20) mg/dL Glucose 134 H (74-99) mg/dL POC Glucose (mg/dL) 156 H (70-110) mg/dL Total Bilirubin 1.7 H (0.2-1.3) mg/dL AST 89 H (17-59) U/L ALT 161 H (4-49) U/L Total Protein 5.3 L (6.3-8.2) g/dL Albumin 3.0 L (3.5-5.0) g/dL 01/29/25 Range/Units 11:11 RBC (4.40-5.60) 10*6/uL Hgb (13.0-17.0) g/dL Hct (39.6-50.0) % Immature Gran # (0.00-0.04) 10*3/uL Sodium (137-145) mmol/L BUN (9-20) mg/dL Glucose (74-99) mg/dL POC Glucose (mg/dL) 150 H (70-110) mg/dL Total Bilirubin (0.2-1.3) mg/dL AST (17-59) U/L ALT (4-49) U/L Total Protein (6.3-8.2) g/dL Albumin (3.5-5.0) g/dL Microbiology - Last 24 Hours (Table) 01/27/25 10:04 Blood Culture - Preliminary Blood
[2025-01-29 16:09] LABS: Glucose,Whole Blood 93 mg/dL (70-110)
[2025-01-29] MEDS: MIDODRINE 5 MG TAB PO SCH (17:31)
[2025-01-29 19:58] LABS: Glucose,Whole Blood 108 mg/dL (70-110)
[2025-01-30 04:38] LABS: HGB 8.5 g/dL (13.0-17.0); MCH 31.4 pg (27.0-32.0); MCHC 32.7 g/dL (32.0-37.0); MCV 95.9 fL (80.0-97.0); Platelet Count 281 10*3/uL (140-440); RBC 2.71 10*6/uL (4.40-5.60); WBC 9.78 10*3/uL (4.50-10.00)
[2025-01-30 04:52] LABS: ALT 123 U/L (4-49); AST 59 U/L (17-59); African American GFR (CKD) >90 (>60 ml/min/1.73 sqM); Albumin 2.6 g/dL (3.5-5.0); Alkaline Phosphatase 105 U/L (38-126); Anion Gap 5 mmol/L; Blood Urea Nitrogen 18 mg/dL (9-20); Calcium 8.2 mg/dL (8.4-10.2); Carbon Dioxide 25 mmol/L (22-30); Chloride 102 mmol/L (98-107); Glucose 96 mg/dL (74-99); Non-African American GFR(CKD) >90 (>60 ml/min/1.73 sqM); Potassium 4.2 mmol/L (3.5-5.1); Sodium 132 mmol/L (137-145); Total Bilirubin 1.3 mg/dL (0.2-1.3); Total Protein 4.9 g/dL (6.3-8.2)
[2025-01-30 06:33] LABS: Glucose,Whole Blood 104 mg/dL (70-110)
--- NOTE | 2025-01-30 06:47 | P.PN ---
Subjective Progress Note Date: 01/30/25 Principal diagnosis: Coronary artery disease. This is a 74-year-old white male known history of coronary artery disease, previous stenting of circumflex and LAD, known history of hypertension, dyslipidemia, patient presented to the hospital on 01/16 with chest pain suggestive of acute coronary syndrome. Patient was seen by cardiology and he was felt to have non-ST elevation myocardial infarction started patient initially on heparin aspirin atorvastatin and metoprolol. Patient underwent cardiac catheterization, he was found to have multivessel coronary artery disease, seen by cardiothoracic surgery on consultation, and the plan is to proceed with myocardial revascularization. Workup so far included CT of the chest, it showed no acute thoracic process, it also showed nonspecific pulmonary nodules measuring up to 4 mm, and he was found to have cholelithiasis. Patient states that he is quite active, patient walks on a daily basis, and he never smoked. Denies any cough wheezing shortness of breath. Denies any fever or chills or hemoptysis. Going back to his cardiac catheterization, it showed three-vessel coronary artery disease with 80 to 90% stenosis of the LAD, 95% stenosis to the ostial circumflex coronary artery 70 to 80% stenosis to the ostium of the PLV coronary artery and 50 to 60% to the PDA coronary artery. Seen today on 01/22/2025, patient is now scheduled for myocardial revascularization on Friday. Doing well, asymptomatic, achieving over 1500 cc on incentive spirometry, not in any distress no cough no wheezing no shortness of breath, electrolytes are normal renal profile is normal CBC is normal Patient was seen today on 01/23/2025, patient is resting in bed, does not seem to be in any distress, supposed to undergo myocardial revascularization tomorrow. Patient did develop some component of pulmonary edema as noted on his follow-up chest x-ray, received diuretics/Lasix, and seems to be clinically better. Baseline FEV1 is 61%, The patient is seen today January 24, 2025 in follow-up in the intensive care unit. He is now status post coronary artery bypass grafting with a CHOE to the LAD RHA to the OM, SVG to the PDA and left atrial appendage clipping. Currently on the mechanical ventilator and assist-control mode at a rate of 16, tidal volume 500 and FiO2 100% and a PEEP of 10. Arterial blood gases revealed a PaO2 of 367, KCG184 and a pH of 7.38. He is currently on a nitroglycerin drip at 5 mcg/min. 7 5 mcg/kg/min. Norepinephrine at 0.07 mcg/kg/min. Propofol at 20 mcg/kg/min. Normal saline at 50 mL/h. He has a right, left and mediastinal chest tube in place. Cardiac output 4.4. Cardiac index 2.1. PA pressure 26/12. He did receive 2 units of fresh frozen plasma and 1 albumin since his return from the OR. White count 9.8. Hemoglobin 7.0. Platelets 106. Sodium 135. Potassium 4.4. Bicarb 23. BUN 14. Creatinine 0.62. Glucose 116. He is initiated on DuoNeb ventilations. Heparin for DVT prophylaxis. The patient is seen today January 25, 2025 in follow-up in the intensive care unit. He is was extubated last evening at 22:15. Currently maintaining O2 saturations in the high 90s on 6 L high flow nasal cannula. Core temperature 100.6. Slightly tachycardic at 114. Blood pressure 134/51. PA pressure 46/28. CVP 16. Cardiac output 5.6. Cardiac index 2.7. Vasopressin and norepinephrine have been weaned off. He remains on Primacor at 0.1 mcg/kg/min. Insulin drip at 1 unit/h. Normal saline at 50 mL/h. Remains on bronchodilators. Remains on heparin for DVT prophylaxis. He inadvertently pulled out his [place]-Ava catheter earlier this morning. This was replaced by anesthesia. Arterial blood gases revealed a PaO2 of 70, PCO2 of 34, pH 7.43. Chest x-ray revealed postoperative changes, mild pulmonary edema. Small right pleural effusion. Right, left and mediastinal chest tubes remain in place. Pacer wires remain in place. Status post 2 units of packed red blood cells, 2 units of fresh frozen plasma, 1 unit of platelets. Lites 103. Sodium 135. Potassium 4.0. Bicarb 24. BUN 16. Creatinine 0.63. Glucose 119. Albumin 3.3. The patient is seen today January 26, 2025 in follow-up in the intensive care unit. He is currently sitting up in bed. Awake and alert in no acute distress. He is maintaining O2 saturations in the 90s on room air oxygen. He is pulling only about 750 to 1000 mL on the incentive spirometer. He remains on insulin drip at 1 unit/h. Primacor drip at 0.1 mcg/kg/min. Normal saline at 50 mL/h. Right, left, mediastinal chest tubes remain in place. Cardiac output 5.3. Cardiac index 2.5. PA pressure 42/17. CVP 8. Core temperature 100.6. Chest x-ray reveals cardiomegaly with small right pleural effusion and bilateral venous congestion. He is status post 2 units of packed red blood cells, 2 units of fresh frozen plasma, 1 unit of platelets. White count 14.1. Hemoglobin 8.2. Platelets 145. Sodium 134. Potassium 4.1. Bicarb 21. BUN 19. Creatinine 0.70. Glucose 114. He remains on DuoNeb inhalations. Heparin for DVT prophylaxis. The patient is seen today January 27, 2025 in follow-up in the intensive care unit. He is currently up in a chair at the bedside. Awake and alert in no acute distress. Maintaining O2 saturations in the 90s on 2 L/min per nasal cannula. Today's chest x-ray improvement post right sided thoracentesis yesterday. 1 L of bloody fluid returned. Blood gases revealed a PaO2 of 122. pCO2 29 pH 7.46 on 30% FiO2. 2 units of packed red blood cells. 2 units of fresh frozen plasma. 1 unit of platelets. 6. Platelets 135. Sodium 131. Potassium 4.3. Bicarb 21. BUN 26. Creatinine 0.83. Glucose 131. Well. PA pressure 37/14. CVP 7. Cardiac output 3.4. Cardiac index 1.6. Chest tubes have been removed. Pacer wires in place with backup pacing VVI at 50 bpm. Left [place]-Ava internal jugular catheter remains in place. The patient is seen today January 28, 2025 in follow-up in the intensive care unit. Postoperative day #4. He is currently up in a chair at the bedside. Awake and alert in no acute distress. Maintaining good O2 saturations in the 90s on room air oxygen. He is currently in sinus rhythm. He is on normal saline at 30 mL/h. Primacor at 0.25 mcg/kg/min. Left IJ [place]-Ava catheter remains in place. Cardiac output 5.2. Cardiac index 2.5. PA pressure 40/18. CVP 10. Chest x-ray shows mild fluid volume overload. Basilar atelectasis. He is status post 3 units of packed red blood cells, 2 units of fresh frozen plasma and 1 unit of platelets this admission. Culture revealed no growth. White count 11.2. Hemoglobin 8.0. Platelets 152. Sodium 130. Potassium 3.8. Bicar b 23. BUN 26. Creatinine 0.68. AST 317. ALT 230. Albumin 2.7. He is continued on DuoNeb inhalations. Heparin for DVT prophylaxis. Protonix for GI prophylaxis. The patient is seen today January 29, 2025 in follow-up in the intensive care unit. Postoperative day #5. He is currently sitting up in a chair at the bedside. Awake and alert in no acute distress. Maintaining good O2 saturations in the 90s on room air. He has been afebrile. Hemodynamically stable. He does continue on Primacor at 0.25 mcg/kg/min. Normal saline at KVO. Chest x-ray reveals some mild fluid volume overload with small bilateral pleural effusions. Is working well with the incentive spirometer. He remains on bronchodilators. Heparin for DVT prophylaxis. White count 9.3. Hemoglobin 8.8. Platelets 241. Sodium 132. Potassium 4.2. Bicarb 24. BUN 21. Creatinine 0.74. Glucose 134. AST 89. ALT 161. Albumin 3.0. Progress note dated January 30, 2025. 74-year-old male seen today in room 266. He is postoperative day #6. He is lying in bed. He is in no distress. He is on room air. He is getting saline at 10 cc an hour. He continues on Primacor 0.125 mcg/kg/min. According to the nurse, he had an uneventful night. He has no specific complaints today. Laboratory data includes a white count 9.8, hemoglobin 8.5, hematocrit 26, platelet count 281,000. Sodium 132, potassium 4.2, chlorides 102, CO2 25, BUN 18, creatinine 0.70. Calcium is 8.2. Albumin is 2.6. Glucose 104. Chest x- ray shows effusion, in the right chest. Objective - Vital Signs Vital signs: Vital Signs Temp 98.1 F 01/30/25 04:00 Pulse 90 01/30/25 06:00 Resp 26 H 01/30/25 06:00 BP 116/62 01/30/25 06:00 Pulse Ox 97 01/30/25 06:00 FiO2 50 01/24/25 21:10 Intake & Output 01/29/25 01/29/25 01/30/25 06:59 18:59 06:59 Intake Total 200 137.741 120 Output Total 500 850 300 Balance -300 -712.259 -180 Weight 100.5 kg Intake: IV 100 120 120 Pressure 0 Sodium Chloride 0.9% 1, 100 120 120 000 ml @ 30 mls/hr IV . Q24H [facility] Rx#:[id number] Intake, IV Titration 100 17.741 Amount Milrinone-D5w Pmx 20 mg 100 17.741 In Dextrose/Water 1 100ml .bag @ 0.125 MCG/KG/MIN 3 .829 mls/hr IV .Q24H [facility] Rx#:[id number] Output: Urine 500 850 300 Other: Voiding Method External Catheter External Catheter External Catheter # Voids 1 1 # Bowel Movements 0 0 ABP, PAP, CO, CI - Last Documented Arterial Blood Pressure 129/44 Pulmonary Artery Pressure 38/19 Cardiac Output 5.1 Cardiac Index 2.4 - Exam No acute distress, oriented 3. Currently on room air. HEENT examination is grossly unremarkable. Mucous membranes are moist. No oral lesions. Neck supple. Full range of motion. No adenopathy thyromegaly or neck vein distention. Cardiovascular examination reveals regular rhythm rate. S1-S2 normal. No S3 or S4. No discernible murmur noted. Lungs reveal mostly clear breath sounds. Minimal scattered rhonchi. No wheezes or crackles. Breath sounds equal. Abdomen soft bowel sounds are heard. No masses or tenderness. Extremities are intact. No cyanosis clubbing or edema. Skin is without rash or lesion. Neurologic examination is brief but nonfocal. - Labs CBC & Chem 7: 01/30/25 03:47 01/30/25 03:47 Labs: Abnormal Lab Results - Last 24 Hours (Table) 01/29/25 01/29/25 01/29/25 Range/Units 07:33 07:33 11:11 RBC 2.86 L (4.40-5.60) 10*6/uL Hgb 8.8 L (13.0-17.0) g/dL Hct 27.2 L (39.6-50.0) % Immature Gran # 0.13 H (0.00-0.04) 10*3/uL Sodium 132 L (137-145) mmol/L BUN 21 H (9-20) mg/dL Glucose 134 H (74-99) mg/dL POC Glucose (mg/dL) 150 H (70-110) mg/dL Calcium (8.4-10.2) mg/dL Total Bilirubin 1.7 H (0.2-1.3) mg/dL AST 89 H (17-59) U/L ALT 161 H (4-49) U/L Total Protein 5.3 L (6.3-8.2) g/dL Albumin 3.0 L (3.5-5.0) g/dL 01/30/25 01/30/25 Range/Units 03:47 03:47 RBC 2.71 L (4.40-5.60) 10*6/uL Hgb 8.5 L (13.0-17.0) g/dL Hct 26.0 L (39.6-50.0) % Immature Gran # (0.00-0.04) 10*3/uL Sodium 132 L (137-145) mmol/L BUN (9-20) mg/dL Glucose (74-99) mg/dL POC Glucose (mg/dL) (70-110) mg/dL Calcium 8.2 L (8.4-10.2) mg/dL Total Bilirubin (0.2-1.3) mg/dL AST (17-59) U/L ALT 123 H (4-49) U/L Total Protein 4.9 L (6.3-8.2) g/dL Albumin 2.6 L (3.5-5.0) g/dL Microbiology - Last 24 Hours (Table) 01/27/25 10:04 Blood Culture - Preliminary Blood Assessment and Plan Assessment: Multivessel coronary artery disease. Status postcoronary artery bypass grafting x 3 with a CHOE to the LAD, RAH to the OM, SVG to the PDA with left atrial appendage clipping. Postoperative day #6. Routine mechanical ventilator management. Right sided pleural effusion, S/P thoracentesis on 01/26/2025 with 1 L removed. Acute blood loss anemia, expected outcome of surgery, required 3 units of packed red blood cells. Acute non-ST elevation myocardial infarction, previous history of SC in 2017. History of previous stent placement to circumflex and LAD in 2017. Benign essential hypertension. Lifetime non-smoker. Nonspecific pulmonary nodules. Dyslipidemia. Benign essential hypertension. Plan: Plan dated January 30, 2025. The patient is seen today in room 266. The patient remains on Primacor 0.125 mcg/kg/min. He is on room air. He is getting saline at 10 cc an hour. Today is postoperative day #6. Labs, x-rays, medications are reviewed. Clinically, he appears relatively stable. His respiratory status is certainly stable, as he is not requiring any supplemental oxygen, and he has no complaints of shortness of breath. We will continue to follow make recommendations. Labs, x-rays, medications are reviewed. Dictation was produced using [employer] dictation software. Please excuse any grammatical, word or spelling errors. Time with Patient: Less than 30
--- NOTE | 2025-01-30 07:57 | XR ---
EXAMINATION TYPE: XR chest 1V portable DATE OF EXAM: 01/30/2025 5:19 AM COMPARISON: Chest radiographs from 01/29/2025. CLINICAL INDICATION: Male, 74 years old with history of Postcardiac surgery; [facility] TECHNIQUE: XR chest 1V portable Frontal view of the chest. FINDINGS: Lungs/Pleura: Blunting of the right costophrenic angle. There is no evidence of left pleural effusio n, focal consolidation, or pneumothorax Pulmonary vascularity: Pulmonary vascular congestion. Heart/mediastinum: Cardiomediastinal silhouette is enlarged. Left atrial appendage occlusion device i s present. Musculoskeletal: No acute osseous pathology. Midline sternotomy wires are noted. IMPRESSION: * Cardiomegaly and pulmonary vascular congestion. Suggesting some degree of heart failure. Correlate with BNP for congestive heart failure. * Layering right pleural effusion. [facility], , 01/30/2025 7:55 AM
[2025-01-30] MEDS: FUROSEMIDE 10 MG/ML 4 ML VIAL IV STA (08:59)
--- NOTE | 2025-01-30 09:45 | P.PN ---
Subjective Progress Note Date: 01/30/25 Principal diagnosis: Multivessel coronary artery disease, non-ST elevated myocardial infarction this admission. History of coronary artery disease with myocardial infarction and p revious stent placement to his circumflex coronary artery and left anterior descending coronary artery in August 2017, hypertension, hyperlipidemia, obesity, lifetime non-smoker POD #6 coronary artery bypass graft x 3 with left internal mammary artery to the left anterior descending artery, left radial artery to the obtuse marginal artery, reverse saphenous vein graft to the posterior descending artery, endoscopic vein harvesting of the left greater saphenous vein, endoscopic harvesting of the left radial artery, ligation of the left atrial appendage with a 35 mm AtriClip, epiaortic ultrasound, intraoperative transesophageal echocardiogram, graft flow measurements using the [employer] system Acute blood loss anemia, expected given hemodilution and cardiopulmonary bypass pump Hypotension, somewhat expected due to vasoplegia as well as acute blood loss Right pleural effusion, status post right thoracentesis performed by Dr. Osborne from pulmonary medicine. Postoperative paroxysmal atrial fibrillation, a known common occurrence after cardiac surgery. Elevated transaminases, likely due to hypotension as well as medication induced The patient was seen and examined this morning sitting up in recliner in the intensive care unit with no acute distress. Remains in sinus rhythm, he modynamically stable. Remains on IV Primacor. Currently on room air with oxygen saturation in the high 90s, able to achieve 1000 mL on incentive spirometry. Denies significant pain or shortness of breath. Has been up ambulating short distances with a walker and assistance. No other new concerns. Objective - Vital Signs Vital signs: Vital Signs Temp 98.4 F 01/30/25 08:00 Pulse 95 01/30/25 09:00 Resp 20 01/30/25 09:00 BP 120/66 01/30/25 09:00 Pulse Ox 94 L 01/30/25 09:00 FiO2 50 01/24/25 21:10 Intake & Output 01/29/25 01/30/25 01/30/25 18:59 06:59 18:59 Intake Total 137.741 120 260 Output Total 850 300 Balance -712.259 -180 260 Intake: IV 120 120 20 Sodium Chloride 0.9% 1, 120 120 20 000 ml @ 30 mls/hr IV . Q24H [facility] Rx#:[id number] Intake, IV Titration 17.741 Amount Milrinone-D5w Pmx 20 mg 17.741 In Dextrose/Water 1 100ml .bag @ 0.125 MCG/KG/MIN 3 .829 mls/hr IV .Q24H [facility] Rx#:[id number] Oral 240 Output: Urine 850 300 Other: Voiding Method External Catheter External Catheter # Voids 1 1 # Bowel Movements 0 1 ABP, PAP, CO, CI - Last Documented Arterial Blood Pressure 129/44 Pulmonary Artery Pressure 38/19 Cardiac Output 5.1 Cardiac Index 2.4 - Exam CONSTITUTIONAL: Appears comfortable, cooperative, no acute distress RESPIRATORY: Lungs sounds diminished in the bases bilaterally. Respirations even, nonlabored. Currently on room air with oxygen saturation 97%. Able to achieve 1000 mL on incentive spirometry. Strong cough. CARDIOVASCULAR: S1, S2 present. Regular rate and rhythm, sinus rhythm on telemetry. Sternum stable. Palpable peripheral pulses bilaterally. Generalized edema present. No calf pain or tenderness noted. Heart hugger, antiembolism stockings, SCDs present. GASTROINTESTINAL: Abdomen soft, nontender, nondistended. Active bowel sounds present 4 quadrants. Tolerating diet. Positive bowel movement 01/30 GENITOURINARY: Patient voiding but incontinent INTEGUMENTARY: Skin is warm and dry with evidence of good perfusion. Anterior chest incision well approximated and covered with dry intact dressing. Left lower extremity EVH site well approximated without redness or drainage. NEUROLOGIC: Cranial nerves II through XII intact MUSKULOSKELETAL: Able to move all extremities, strength equal bilaterally, gait slow with walker PSYCHIATRIC: Alert and oriented to person place and time, slow to respond per his baseline INVASIVE LINES AND TUBES: A/V epicardial pacemaker wires present, connected to generator, backup rate 50 bpm - Allied health notes Allied health notes reviewed: nursing - Labs CBC & Chem 7: 01/30/25 03:47 01/30/25 03:47 Labs: Abnormal Lab Results - Last 24 Hours (Table) 01/29/25 01/30/25 01/30/25 Range/Units 11:11 03:47 03:47 RBC 2.71 L (4.40-5.60) 10*6/uL Hgb 8.5 L (13.0-17.0) g/dL Hct 26.0 L (39.6-50.0) % Sodium 132 L (137-145) mmol/L POC Glucose (mg/dL) 150 H (70-110) mg/dL Calcium 8.2 L (8.4-10.2) mg/dL ALT 123 H (4-49) U/L Total Protein 4.9 L (6.3-8.2) g/dL Albumin 2.6 L (3.5-5.0) g/dL Microbiology - Last 24 Hours (Table) 01/27/25 10:04 Blood Culture - Preliminary Blood - Imaging and Cardiology Chest x-ray: report reviewed, image reviewed Assessment and Plan Assessment: Multivessel coronary artery disease, non-ST elevated myocardial infarction this admission status post three-vessel CABG Acute blood loss anemia, expected given hemodilution and cardiopulmonary bypass pump Hypotension, somewhat expected due to vasoplegia as well as acute blood loss Right pleural effusion, status post right thoracentesis performed by Dr. Osborne from pulmonary medicine. Postoperative paroxysmal atrial fibrillation, a known common occurrence after cardiac surgery. Elevated transaminases, likely due to hypotension as well as medication induced History of coronary artery disease with myocardial infarction and previous stent placement to Cx and LAD in August 2017 Hypertension Hyperlipidemia, cholesterol 174, LDL 100.8, triglycerides 139 Obesity Lifetime non-smoker Developmental delay Plan: Continue to maximize medical therapy with aspirin, Plavix, beta-trixie. Will increase beta-trixie therapy as tolerated. Will restart statin once liver enzymes normalize Continue midodrine to support blood pressure Discontinue Primacor, Hep-Lock IV Encourage incentive spirometry use. Bronchodilators per pulmonology Will monitor daily labs and x-rays. Electrolyte replacement per protocol. Will give 40 mg IV push Lasix today Increase activity as tolerated. PT/OT/cardiac rehab following GI/DVT prophylaxis Continue to monitor strict accurate intake and output Insulin management per internal medicine. Patient is not diabetic, preoperative hemoglobin A1c 5.4% Pain control per current medication regimen. No narcotics Will place transfer orders for 3 S. cardiac stepdown unit, may transfer when bed available More recommendations to follow
[2025-01-30 11:57] LABS: Glucose,Whole Blood 101 mg/dL (70-110)
[2025-01-30] MEDS: ALBUMIN HUMAN 25% 50 ML in EMPTY BAG 1 BAG IVPB ONE (12:18)
[2025-01-30] MEDS: MD COMMUNICATION TO PHARMACY 1 EACH MISC PO ONE ×4 (12:18)
[2025-01-30] MEDS: HEPARIN SODIUM 1,000 UN/ML (10ML VL) IV ONE (12:19)
[2025-01-30] MEDS: MAGNESIUM SULFATE 16.24 MEQ in EMPTY SYRINGE 1 SYR IV ONE (12:19)
[2025-01-30] MEDS: ALBUMIN HUMAN 5% 500 ML in EMPTY BAG 1 BAG IVPB ONE ×5 (12:19→12:20)
[2025-01-30] MEDS: CLEVIDIPINE BUTYRATE 25 MG in EMPTY BAG 1 BAG IV SCH (12:20)
[2025-01-30] MEDS: CHLORHEXIDINE GLUCONATE 15 ML CUP MUCOUS MEM ONE (12:20)
[2025-01-30] MEDS: CALCIUM CHLORIDE 100 MG/ML 10 ML SYRINGE IVP ONE (12:20)
[2025-01-30] MEDS: ceFAZolin 2 GM in DEXTROSE 5% IN WATER 50 ML IVPB ONE (12:20)
[2025-01-30] MEDS: PHENYLEPHRINE 40 MG in SODIUM CHLORIDE 0.9% 250 ML IV ONE (12:21)
[2025-01-30] MEDS: PROTAMINE SULFATE 10 MG/ML 25 ML VIAL IV ONE (12:21)
[2025-01-30] MEDS: SODIUM BICARB 8.4% 50 ML SYR (1 MEQ/ML) IV ONE (12:21)
[2025-01-30] MEDS: NITROGLYCERIN-D5W PMX 25 MG/250 ML BTL IV ONE (12:21)
[2025-01-30] MEDS: MANNITOL 25% 12.5 GM/50 ML VIAL IV ONE ×2 (12:21→12:22)
[2025-01-30] MEDS: PROTAMINE SULFATE 250 MG in EMPTY BAG 1 BAG IV ONE (12:21)
[2025-01-30] MEDS: NITROGLYCERIN-D5W PMX 50 MG in DEXTROSE/WATER 1 250ML.BAG IV SCH (12:21)
[2025-01-30] MEDS: TRANEXAMIC ACID 2,000 MG in SODIUM CHLORIDE 0.9% 80 ML IV ONE ×2 (12:21→12:22)
[2025-01-30] MEDS: PHENYLEPHRINE 10 MG/ML VIAL IV ONE (12:22)
[2025-01-30] MEDS: ELECTROLYTE-A SOLUTION 1,000 ML with POTASSIUM CHLORIDE 100 MEQ, MAGNESIUM SULFATE 16 M... IV ONE (12:23)
[2025-01-30] MEDS: ELECTROLYTE-A SOLUTION 1,000 ML with POTASSIUM CHLORIDE 40 MEQ, MAGNESIUM SULFATE 16 ME... IV ONE (12:23)
--- NOTE | 2025-01-30 16:29 | P.PN ---
Subjective Progress Note Date: 01/30/25 SUBJECTIVE: 01/29/2025 BP 117/54, heart rate 85 bpm Denies any chest pain chest pressure, coming along well, ambulating in the unit, denies any new cardiovascular symptoms No reported arrhythmias in last 24 hours 01/30/2025 BP 115/72, heart rate 83 Hemoglobin 8.5, creatinine 0.7 Transferred out of ICU to telemetry floor, milrinone drip has been stopped No new acute cardiovascular event No further atrial fibrillation noted last 24 hours PHYSICAL EXAMINATION Neck: Brisk carotid upstroke, no jugular venous distention. Lungs: Clear to auscultation. Heart: Regular rate and rhythm, S1-S2, no S3, no murmur or rub. Chest surgical scar healing appropriately Abdomen: Soft nontender, bowel sounds present, Extremities: No edema, Neuro: Alert, oriented, no focal neurological deficits. Detailed neuro exam was not performed. ASSESSMENT Multivessel CAD found on NSTEMI on admission. Status post CABG x 3 Atrial clip ligation Right pleural effusion status post right thoracentesis Postoperative paroxysmal atrial fibrillation, currently sinus rhythm PLAN Agree with current medical regimen by CT surgery team Anticipate discharge in next 24 to 48 hours Objective - Vital Signs Vital signs: Vital Signs Temp 98.2 F 01/30/25 12:00 Pulse 84 01/30/25 16:20 Resp 18 01/30/25 12:00 BP 115/42 01/30/25 12:00 Pulse Ox 95 01/30/25 12:00 FiO2 50 01/24/25 21:10 Intake & Output 01/29/25 01/30/25 01/30/25 18:59 06:59 18:59 Intake Total 137.741 120 500 Output Total 299 653 8437 Balance -712.259 -180 -600 Weight 102.8 kg Intake: IV 120 120 20 Sodium Chloride 0.9% 1, 120 120 20 000 ml @ 30 mls/hr IV . Q24H [facility] Rx#:[id number] Intake, IV Titration 17.741 Amount Milrinone-D5w Pmx 20 mg 17.741 In Dextrose/Water 1 100ml .bag @ 0.125 MCG/KG/MIN 3 .829 mls/hr IV .Q24H [facility] Rx#:[id number] Oral 480 Output: Urine 686 867 7112 Other: Voiding Method External Catheter External Catheter Diaper # Voids 1 2 # Bowel Movements 0 1 ABP, PAP, CO, CI - Last Documented Arterial Blood Pressure 129/44 Pulmonary Artery Pressure 38/19 Cardiac Output 5.1 Cardiac Index 2.4 - Labs CBC & Chem 7: 01/30/25 03:47 01/30/25 03:47 Labs: Abnormal Lab Results - Last 24 Hours (Table) 01/30/25 01/30/25 Range/Units 03:47 03:47 RBC 2.71 L (4.40-5.60) 10*6/uL Hgb 8.5 L (13.0-17.0) g/dL Hct 26.0 L (39.6-50.0) % Sodium 132 L (137-145) mmol/L Calcium 8.2 L (8.4-10.2) mg/dL ALT 123 H (4-49) U/L Total Protein 4.9 L (6.3-8.2) g/dL Albumin 2.6 L (3.5-5.0) g/dL Microbiology - Last 24 Hours (Table) 01/27/25 10:04 Blood Culture - Preliminary Blood
[2025-01-30 16:38] LABS: Glucose,Whole Blood 102 mg/dL (70-110)
[2025-01-30 20:28] LABS: Glucose,Whole Blood 167 mg/dL (70-110)
--- NOTE | 2025-01-30 23:00 | P.PN ---
Subjective Progress Note Date: 01/30/25 01/17/2025 this is 74-year-old gentleman, follows with [facility] with past medical history significant for CAD, ID with stents of the circumflex and LAD, morbid obesity, hypertension, hyperlipidemia and multiple other medical issues brought into the ER via EMS from [facility] yesterday secondary to complaints of chest pain. Patient reports during [facility] he developed midsternal chest pain/tingling, nonradiating accompanied by increased shortness of breath and lightheadedness. Denies nausea, vomiting or diarrhea.denies abdominal pain.Patient responds slowly but appropriate;baseline as per PCP.Does not drive, uses the [facility] for transportation. Patient was initiated on IV heparin drip related to elevated troponins. EKG reported sinus tachycardia. Troponins 0.090, 3.400. D-dimer WNL, 0.26. Afebrile, normal WBC, hemoglobin 14.6, platelets 255, INR 1. 137, potassium 4 1, bicarb 24, creatinine 0.62, glucose 103, magnesium 1.6. proBNP 1550, TSH 3.740. Viral studies negative. Chest x-ray reported no acute cardiopulmonary disease/process. Currently denies chest pain, palpitations or shortness of breath.Maintaining O2 sats in the high 90s to 100% on room air. 01/18/2025 completed cardiac catheterization yesterday reported severe triple- vessel disease; proximal RCA 70 to 80% stenosis, mid RCA 60% stenosis,Ostium of the PLV 70% and PDA has 50 to 60% stenosis. Circumflex coronary artery 95% ostial stenosis. LAD 80 to 90% stenosis proximally in the ostial portion. LV fu nction/echo pending. Evaluated by cardiothoracic surgery yesterday, felt to be high risk candidate. Brother Arvind at bedside, disclosed that patient had run out of medications, timeframe unknown. Currently denies chest pain, palpitations or shortness of breath. Telemetry sinus rhythm. 01/19/2025 anticoagulated on IV heparin drip. Maintained on beta-trixie, statin and aspirin. Echo results pending. Telemetry sinus rhythm .denies chest pain, palpitations or shortness of breath. Denies lightheadedness dizziness or focal deficits. Incentive spirometer up to 1999. 01/20/2025 Patient evaluated today on the cardiac unit. Sitting up in the chair. No acute complaints. Heparin gtt currently off. Echocardiogram reveals EF 35% with apical, septal and inferior hypokinesis. Trace to mild MR, mild aortic stenosis, mild AR. Patient is being considered for open heart surgery. 01/21/2025 Patient is evaluated today in follow up. He is sitting up in the chair. Having no acute complaints. Remains off IV heparin at this time. He will be going for open heart surgery on Friday. 01/22/2025 Patient is evaluated today in f/u. Patient sitting up in the chair with no acute complaints. Tolerating diet. He is saturating 95% on room air. 01/23/2025 Patient evaluated today in follow up. Reports no acute complaints, denies any chest pressure, chest pain. Denies shortness of breath. Chest xray this morning reveals mild cardiomegaly with new right greater than left acute infiltrates and or edema. He received IV lasix 40 mg dose today. Sodium of 136, potassium 4.1, BUN 16, creatinine 0.70. White blood cell count 7.70, hgb 11.9. Patient is afebrile, heart rate 82, blood pressure 101/59, 95% on 2L of oxygen via nasal cannula. 01/24/2025 Patient going for open heart today and will be moved to the ICU post surgery. Chest xray today reveals mild cardiomegaly, and medium diffuse interstitial opacities which show slight improvement from prior. 01/25/2025 Patient evaluated today in the ICU. Patient is in soft wrist restraints. Monroe- shonna catheter was pulled out this AM. It has been replaced. He received 1 unit of PRBC and was started on vasopresors and primacor gtt. Chest tubes x 3 noted. AM chest xray reveals post-CABG changes with residual interstitial pulmonary edema, some the previous patchy changes have improved. Ongoing small right pleural effusion with adjacent atelectasis and or consolidation noted. WBC 10.99, hgb 8.0, sodium 135, BUN 16, creatinine 0.93. 01/26/2025 Patient evaluated in the ICU. He is postoperative day #2 three-vessel cabg. He has been febrile with T-Max 100.6 in the last 24 hours. Chest xray reveal pleural effusion. Patient underwent right sided thoracentesis today 950 mL of fluid off. Also procal was bumped at 0.67. Urinalysis slightly abnormal. Will follow up with CT surgery for antibiotic needs. White blood cell count is 14.13. He remains on IV insulin; with plans to transition to sliding scale tomorrow. 01/27/2025 Patient evaluated in the ICU. He is more awake and alert today. Postoperative day #3 three-vessel CABG. Fever has been better. Chest xray reveals continued CHF. Echocardiogram reveals EF 40% hypokinesia of severe degree involving the distal septum and adjoining apex. No pericardial effusion noted. Chest tubes have been removed. Patients blood glucose has been controlled. 01/28/2025 Patient is evaluated today in the ICU. Sitting up in the chair. No acute complaints at this time. He is postoperative day #4 three-vessel CABG. Chest xray reveals continued CHF/fluid overload state. New bilateral upper lung acute infiltrates and or atelectasis noted. WBC 11.28, hgb 8.0, sodium 130, potassium 3.9, BUN 26, creatinine 0.68. Mag 2.0. LFTs elevated and trending upwards. Urine culture negative. Blood glucose remains on controlled on sliding scale insulin. 01/29/2025 Patient is evaluated in follow-up in the intensive care unit. He is currently sitting up in the chair. He is doing well he is postoperative day #5 three- vessel CABG. Primacor drip continues to be weaned off. He will be evaluated for IPR on Friday. His blood glucose has been controlled on a sliding scale insulin. 01/30/2025 Patient to be moved out of the ICU today to the cardiac unit. He has no acute complaints. He has been up ambulating. Had a bowel movement. Tolerating diet. He is postoperative day #6 three-vessel CABG. Chest xray today reveals cardiomegaly and pulmonary vascular congestion. Layering right pleural effusion. Status post IV lasix x 1. WBC 9.78, hgb 8.5, sodium 132, potassium 4.2, BUN 18, creatinine 0.70. Total bilirubin 1.3. Review of Systems Constitutional: Denied any fatigue denied any fever. Cardio vascular: denied any chest pain, palpitations Gastrointestinal: denied any nausea, vomiting, diarrhea Pulmonary: Denied any shortness of breath cough Neurologic denied any new focal deficits All inpatient medications were reviewed and appropriate changes in these medications as dictated in the interval history and assessment and plan. PHYSICAL EXAMINATION: GENERAL: The patient is alert and oriented x2-3, not in any acute distress. Well developed, well nourished. HEENT: Pupils are round and equally reacting to light. EOMI. No scleral icterus. No conjunctival pallor. Normocephalic, atraumatic. No pharyngeal erythema. No thyromegaly. CARDIOVASCULAR: S1 and S2 present. No murmurs, rubs, or gallops. PULMONARY: Chest is clear to auscultation, no wheezing or crackles. ABDOMEN: Soft, nontender, nondistended, normoactive bowel sounds. No palpable organomegaly. MUSCULOSKELETAL: No joint swelling or deformity. EXTREMITIES: No cyanosis, clubbing, or pedal edema. Soft wrist restraints in place NEUROLOGICAL: No focal neurological deficits. SKIN: No rashes. Assessment NSTEMI, status post cardiac catheterization reporting triple-vessel disease Right sided pleural effusion CAD with history of ID 2017, stenting of circumflex and LAD, current ran out of his medications-states unclear on timeframe. Last refill RX recorded at [facility] as October 2019. Developmental delay, at baseline per PCP and patient's brother Arvind. Follows with [facility]. Fever; leukocytosis concern for UTI pending urine culture Volume overload status post IV lasix Hypertension Hyperlipidemia Morbid obesity, BMI 33 Plan Patient has been downgraded from the ICU -Status post thoracentesis -Chest tubes have been removed -Monroe/Cordis have been removed -IV lasix x 1 today -Continue current cardiac medications -Monitor electrolytes and renal function -Transition to sliding scale insulin ACHS -COntinue to encourage incentive spirometer 10 x an hour while awake -IPR evaluation The impression and plan of care has been dictated by Kandy Che, Nurse Practitioner as directed. Dr. Jesus Alberto MD I have performed a history and physical examination and medical decision making of this patient, discussed the same with the dictator, and agree with the dictators assessment and plan as written, documented as a scribe. Based on total visit time, I have performed more than 50% of this visit. Objective - Vital Signs Vital signs: Vital Signs Temp 98.1 F 01/30/25 04:00 Pulse 90 01/30/25 06:00 Resp 26 H 01/30/25 06:00 BP 116/62 01/30/25 06:00 Pulse Ox 97 01/30/25 06:00 FiO2 50 01/24/25 21:10 Intake & Output 01/29/25 01/29/25 01/30/25 06:59 18:59 06:59 Intake Total 200 137.741 120 Output Total 500 850 300 Balance -300 -712.259 -180 Weight 100.5 kg Intake: IV 100 120 120 Pressure 0 Sodium Chloride 0.9% 1, 100 120 120 000 ml @ 30 mls/hr IV . Q24H [facility] Rx#:[id number] Intake, IV Titration 100 17.741 Amount Milrinone-D5w Pmx 20 mg 100 17.741 In Dextrose/Water 1 100ml .bag @ 0.125 MCG/KG/MIN 3 .829 mls/hr IV .Q24H [facility] Rx#:[id number] Output: Urine 500 850 300 Other: Voiding Method External Catheter External Catheter External Catheter # Voids 1 1 # Bowel Movements 0 0 ABP, PAP, CO, CI - Last Documented Arterial Blood Pressure 129/44 Pulmonary Artery Pressure 38/19 Cardiac Output 5.1 Cardiac Index 2.4 - Labs CBC & Chem 7: 01/30/25 03:47 01/30/25 03:47 Labs: Abnormal Lab Results - Last 24 Hours (Table) 01/29/25 01/29/25 01/29/25 Range/Units 07:33 07:33 11:11 RBC 2.86 L (4.40-5.60) 10*6/uL Hgb 8.8 L (13.0-17.0) g/dL Hct 27.2 L (39.6-50.0) % Immature Gran # 0.13 H (0.00-0.04) 10*3/uL Sodium 132 L (137-145) mmol/L BUN 21 H (9-20) mg/dL Glucose 134 H (74-99) mg/dL POC Glucose (mg/dL) 150 H (70-110) mg/dL Calcium (8.4-10.2) mg/dL Total Bilirubin 1.7 H (0.2-1.3) mg/dL AST 89 H (17-59) U/L ALT 161 H (4-49) U/L Total Protein 5.3 L (6.3-8.2) g/dL Albumin 3.0 L (3.5-5.0) g/dL 01/30/25 01/30/25 Range/Units 03:47 03:47 RBC 2.71 L (4.40-5.60) 10*6/uL Hgb 8.5 L (13.0-17.0) g/dL Hct 26.0 L (39.6-50.0) % Immature Gran # (0.00-0.04) 10*3/uL Sodium 132 L (137-145) mmol/L BUN (9-20) mg/dL Glucose (74-99) mg/dL POC Glucose (mg/dL) (70-110) mg/dL Calcium 8.2 L (8.4-10.2) mg/dL Total Bilirubin (0.2-1.3) mg/dL AST (17-59) U/L ALT 123 H (4-49) U/L Total Protein 4.9 L (6.3-8.2) g/dL Albumin 2.6 L (3.5-5.0) g/dL Microbiology - Last 24 Hours (Table) 01/27/25 10:04 Blood Culture - Preliminary Blood Assessment and Plan Time with Patient: Less than 30
[2025-01-31 06:12] LABS: Glucose,Whole Blood 103 mg/dL (70-110)
[2025-01-31 06:53] LABS: HGB 10.2 g/dL (13.0-17.0); MCH 31.6 pg (27.0-32.0); MCHC 32.9 g/dL (32.0-37.0); Mean Platelet Volume 9.5 fL (9.5-12.2); Platelet Count 433 10*3/uL (140-440); RBC 3.23 10*6/uL (4.40-5.60); RDW 17.6 % (11.5-14.5); WBC 10.95 10*3/uL (4.50-10.00)
--- NOTE | 2025-01-31 07:04 | XR ---
EXAMINATION TYPE: XR chest 2V DATE OF EXAM: 01/31/2025 6:23 AM COMPARISON: Chest radiograph from 3 days prior. CLINICAL INDICATION: Male, 74 years old with history of Postcardiac surgery; [facility] TECHNIQUE: XR chest 2V Frontal and lateral views of the chest. FINDINGS: Lungs/Pleura: Blunting of the right costophrenic angle. There is no evidence of left pleural effusio n, focal consolidation, or pneumothorax Pulmonary vascularity: Pulmonary vascular congestion. Heart/mediastinum: Cardiomediastinal silhouette is enlarged. Left atrial appendage occlusion device i s present. Musculoskeletal: No acute osseous pathology. Midline sternotomy wires are noted. IMPRESSION: * Cardiomegaly and pulmonary vascular congestion. * Layering right pleural effusion. [facility], , 01/31/2025 7:02 AM
[2025-01-31 07:16] LABS: ALT 112 U/L (4-49); AST 55 U/L (17-59); African American GFR (CKD) >90 (>60 ml/min/1.73 sqM); Albumin 3.3 g/dL (3.5-5.0); Alkaline Phosphatase 107 U/L (38-126); Anion Gap 10 mmol/L; Blood Urea Nitrogen 14 mg/dL (9-20); Calcium 9.1 mg/dL (8.4-10.2); Carbon Dioxide 26 mmol/L (22-30); Chloride 96 mmol/L (98-107); Non-African American GFR(CKD) >90 (>60 ml/min/1.73 sqM); Potassium 4.1 mmol/L (3.5-5.1); Sodium 132 mmol/L (137-145); Total Bilirubin 1.5 mg/dL (0.2-1.3); Total Protein 5.9 g/dL (6.3-8.2)
--- NOTE | 2025-01-31 07:28 | US ---
EXAMINATION TYPE: US chest DATE OF EXAM: 01/31/2025 COMPARISON: US (01/26/2025) CLINICAL INDICATION: Male, 74 years old with history of loki for right thoracentesis; TECHNIQUE: Grayscale imaging of the chest. Targeted ultrasound of the posterior lower right hemithor ax FINDINGS: EXAM MEASUREMENTS: Right Pleural Effusion pocket size: 12.3 cm Right skin surface to fluid distance: 4.4 cm Fluid to lung tissue: 7.5cm Right side marked for possible thoracentesis outside the dept. Pulmonologists are able to review the images in the patient?s EMR. IMPRESSIONS: Right pleural effusion marked for thoracentesis. [facility], , 01/31/2025 7:26 AM
[2025-01-31 07:32] LABS: Glucose 96 mg/dL (74-99)
--- NOTE | 2025-01-31 08:53 | P.PN ---
Subjective Progress Note Date: 01/31/25 Principal diagnosis: Multivessel coronary artery disease, non-ST elevated myocardial infarction this admission. History of coronary artery disease with myocardial infarction and p revious stent placement to his circumflex coronary artery and left anterior descending coronary artery in August 2017, hypertension, hyperlipidemia, obesity, lifetime non-smoker POD #7 coronary artery bypass graft x 3 with left internal mammary artery to the left anterior descending artery, left radial artery to the obtuse marginal artery, reverse saphenous vein graft to the posterior descending artery, endoscopic vein harvesting of the left greater saphenous vein, endoscopic harvesting of the left radial artery, ligation of the left atrial appendage with a 35 mm AtriClip, epiaortic ultrasound, intraoperative transesophageal echocardiogram, graft flow measurements using the [employer] stim system Acute blood loss anemia, expected given hemodilution and cardiopulmonary bypass pump Hypotension, somewhat expected due to vasoplegia as well as acute blood loss Right pleural effusion, status post right thoracentesis performed by Dr. Osborne from pulmonary medicine. Postoperative paroxysmal atrial fibrillation, a known common occurrence after cardiac surgery. Elevated transaminases, likely due to hypotension as well as medication induced The patient was seen and examined this morning sitting up in recliner on the cardiac stepdown unit with no acute distress. Remains in sinus rhythm, hemodynamically stable. Currently on room air with oxygen saturation in the mid 90s, able to achieve 1500 mL on incentive spirometry. Denies significant pain or shortness of breath. Has been up ambulating short distances with a walker and assistance, evaluated by PT/OT and felt appropriate for IPR at discharge. Chest x-ray, labs reviewed. Patient does appear to have a right-sided effusion on chest x-ray, ultrasound also completed demonstrating 12.3 cm fluid pocket. No other new concerns. Objective - Vital Signs Vital signs: Vital Signs Temp 98.5 F 01/31/25 04:10 Pulse 92 01/31/25 04:10 Resp 16 01/31/25 04:10 BP 121/68 01/31/25 06:29 Pulse Ox 96 01/31/25 04:10 FiO2 50 01/24/25 21:10 Intake & Output 01/30/25 01/31/25 01/31/25 18:59 06:59 18:59 Intake Total 722 10 Output Total 1100 1050 Balance -378 -1040 Weight 102.8 kg 102.9 kg Intake: IV 20 10 Invasive Line 1 10 Sodium Chloride 0.9% 1, 20 000 ml @ 30 mls/hr IV . Q24H [facility] Rx#:[id number] Oral 702 Output: Urine 1100 1050 Other: Voiding Method Diaper Diaper # Voids 2 # Bowel Movements 1 ABP, PAP, CO, CI - Last Documented Arterial Blood Pressure 129/44 Pulmonary Artery Pressure 38/19 Cardiac Output 5.1 Cardiac Index 2.4 - Exam CONSTITUTIONAL: Appears comfortable, cooperative, no acute distress RESPIRATORY: Lungs sounds diminished in the bases bilaterally. Respirations e sandra, nonlabored. Currently on room air with oxygen saturation 96%. Able to achieve 1500 mL on incentive spirometry. Strong cough. CARDIOVASCULAR: S1, S2 present. Regular rate and rhythm, sinus rhythm on telemetry. Sternum stable. Palpable peripheral pulses bilaterally. Generalized edema present. No calf pain or tenderness noted. Heart hugger, antiembolism stockings, SCDs present. GASTROINTESTINAL: Abdomen soft, nontender, nondistended. Active bowel sounds present 4 quadrants. Tolerating diet. Positive bowel movement 01/30 GENITOURINARY: Patient voiding 2150 mL in the last 24 hours plus some episodes of incontinence INTEGUMENTARY: Skin is warm and dry with evidence of good perfusion. Anterior chest incision well approximated. Left lower extremity EVH site well approximat ed without redness or drainage. NEUROLOGIC: Cranial nerves II through XII intact MUSKULOSKELETAL: Able to move all extremities, strength equal bilaterally, gait slow with walker PSYCHIATRIC: Alert and oriented to person place and time, slow to respond per his baseline INVASIVE LINES AND TUBES: A/V epicardial pacemaker wires present, grounded - Allied health notes Allied health notes reviewed: nursing - Labs CBC & Chem 7: 01/31/25 06:30 01/31/25 06:30 Labs: Abnormal Lab Results - Last 24 Hours (Table) 01/30/25 01/31/25 01/31/25 Range/Units 20:22 06:30 06:30 WBC 10.95 H (4.50-10.00) 10*3/uL RBC 3.23 L (4.40-5.60) 10*6/uL Hgb 10.2 L (13.0-17.0) g/dL Hct 31.0 L (39.6-50.0) % Sodium 132 L (137-145) mmol/L Chloride 96 L (98-107) mmol/L Creatinine 0.63 L (0.66-1.25) mg/dL POC Glucose (mg/dL) 167 H (70-110) mg/dL Total Bilirubin 1.5 H (0.2-1.3) mg/dL ALT 112 H (4-49) U/L Total Protein 5.9 L (6.3-8.2) g/dL Albumin 3.3 L (3.5-5.0) g/dL Microbiology - Last 24 Hours (Table) 01/27/25 10:04 Blood Culture - Preliminary Blood - Imaging and Cardiology Chest x-ray: report reviewed, image reviewed Assessment and Plan Assessment: Multivessel coronary artery disease, non-ST elevated myocardial infarction this admission status post three-vessel CABG Acute blood loss anemia, expected given hemodilution and cardiopulmonary bypass pump Hypotension, somewhat expected due to vasoplegia as well as acute blood loss Right pleural effusion, status post right thoracentesis performed by Dr. Osborne from pulmonary medicine. Postoperative paroxysmal atrial fibrillation, a known common occurrence after cardiac surgery. Elevated transaminases, likely due to hypotension as well as medication induced, resolving Medical debility History of coronary artery disease with myocardial infarction and previous stent placement to Cx and LAD in August 2017 Hypertension Hyperlipidemia, cholesterol 174, LDL 100.8, triglycerides 139 Obesity Lifetime non-smoker Developmental delay Plan: Continue to maximize medical therapy with aspirin, Plavix, beta-trixie. Will increase beta-trixie therapy as tolerated, increased to 25 mg twice daily today. Will restart statin once liver enzymes normalize Continue midodrine to support blood pressure with hold parameters, patient did not receive a dose last night for this morning as blood pressures were stable Encourage incentive spirometry use. Bronchodilators per pulmonology Will monitor daily labs and x-rays. Electrolyte replacement per protocol. Will give 40 mg IV push Lasix today Increase activity as tolerated. PT/OT/cardiac rehab following GI/DVT prophylaxis Continue to monitor strict accurate intake and output Insulin management per internal medicine. Patient is not diabetic, preoperative hemoglobin A1c 5.4% Pain control per current medication regimen. No narcotics Right chest marked for thoracentesis, will discuss with pulmonology Discharge planning in progress, anticipate discharge soon. Patient will need rehab at discharge due to medical debility and need for daily physician assessment. PM&R physicians consulted for hopeful IPR at discharge More recommendations to follow
[2025-01-31] MEDS: METOPROLOL TARTRATE 12.5 MG TAB PO SCH (09:41)
[2025-01-31] MEDS: FUROSEMIDE 10 MG/ML 4 ML VIAL IV STA (09:42)
[2025-01-31] MEDS: ACETAMINOPHEN TAB 325 MG TAB PO PRN (09:42)
[2025-01-31 11:35] LABS: HCT 30.7 % (39.6-50.0); HGB 10.1 g/dL (13.0-17.0); MCH 31.9 pg (27.0-32.0); MCHC 32.9 g/dL (32.0-37.0); MCV 96.8 fL (80.0-97.0); Mean Platelet Volume 9.5 fL (9.5-12.2); Platelet Count 441 10*3/uL (140-440); RBC 3.17 10*6/uL (4.40-5.60); RDW 17.5 % (11.5-14.5)
--- NOTE | 2025-01-31 11:45 | P.PN ---
Subjective HISTORY OF PRESENT ILLNESS: This is a 74-year-old male with a past medical history significant for coronary artery disease with previous stenting of the circumflex of the LAD, hypertension, and hyperlipidemia. Patient used to follow in the office with Dr. Guillen but has not been seen since October 2019. We have been asked to see the patient in consultation for chest pain. Patient examined at the bedside in the emergency room. Patient states that he was at [employer] yesterday when he began to have chest discomfort. He states the pain was in the middle of the chest. He denied any radiation of the pain. He also reported having some dizziness. The patient was found to have elevated troponins and was started on IV heparin. At the time of examination he denies any chest pain or pressure. Bedside telemetry reveals sinus mechanism. DIAGNOSTICS: - EKG reveals sinus tachycardia with no signs of acute ischemia. - Chest xray negative for acute process - Laboratory data: WBC 6.7. Hemoglobin 13.4. Platelet count 217. D-dimer 0.26. Sodium 137. Potassium 4.1. BUN 11. Creatinine 0.62. Troponin 0.090. 3.400. proBNP 1550. TSH 3.740. - Current home cardiac medications include none. - Most recent echocardiogram obtained in July 2017 revealing ejection fraction 60 to 65% with mild TR - Cardiac catheterization history: July 2017 with stenting of the proximal left circumflex. - Repeat cardiac catheterization performed in August 2017 with stenting of the LAD 01/18/2025 Patient is status post cardiac catheterization yesterday with Dr. Mccabe revealing RCA stenosis at its worst 70 to 80%. There is mid RCA lesion of 60% and divides into PDA and PLV. Ostium of the PLV has 70% stenosis and PDA has 50 to 60% stenosis. Left main artery appears calcified. There is distal left main plaque. Circumflex coronary artery reveals 95% ostial stenosis. LAD has 80 to 90% stenosis proximally in the ostial portion. CT surgery was consulted for evaluation. Patient examined this morning at the bedside. Patient currently denies chest pain or pressure. He denies shortness of breath. Vital signs are stable. Telemetry reveals sinus mechanism. Patient's brother is at the bedside. Patient's brother states that patient is at his baseline. He states that the patient is " somewhat handicapped" and " takes a long time to process what people are saying". He states that the patient has lived on his own independently for many years and takes care of himself and makes all his own medical decisions. 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 He states he is not able to drive because his reaction times are too slow and cannot make sudden decisions. 01/19/2025 Patient examined this morning at bedside. Patient currently denies chest pain or pressure. He denies shortness of breath. Denies dizziness or lightheadedness. Vital signs are stable. He remains on IV heparin. 01/20/2025 Patient examined this morning at the bedside. Patient currently denies chest pain or pressure. He denies shortness of breath. Vital signs are stable. Echocardiogram completed revealing ejection fraction 35% with apical septal and inferior hypokinesis, trace to mild MR, mild aortic stenosis, mild aortic regurgitation. 01/21/2025 Patient examined this morning at bedside. Patient currently denies chest pain or pressure. He denies shortness of breath. He reports nausea this morning with a small episode of emesis. Vital signs are stable. Telemetry Veals sinus mechanism. 01/22/2025 Patient examined this morning at bedside. He denies chest pain or pressure. Denies shortness of breath. Vital signs are stable. 01/23/2025 Patient examined this morning at bedside. Patient currently denies chest pain or pressure. He denies shortness of breath. Vital signs are stable. 01/31/2025 Patient is status post CABG x 3 vessel. Postop day #7. Patient examined this morning. He is sitting up in the chair. Patient currently denies chest pain or pressure. He denies shortness of breath. Telemetry reveals sinus mechanism. Patient is using his incentive spirometer. Blood pressure is stable. PHYSICAL EXAM: VITAL SIGNS: Reviewed. GENERAL: Well-developed in no acute distress. HEENT: Head is normocephalic. Pupils are equal, round. Sclerae anicteric. Mucous membranes of the mouth are moist. Neck supple. No JVD or thyromegaly LUNGS: Respirations even and unlabored. Lungs essentially clear to auscultation bilaterally, right-sided diminished. HEART: Regular rate and rhythm. S1 and S2 heard. ABDOMEN: Soft. Nondistended. Nontender. EXTREMITIES: Normal range of motion. No clubbing or cyanosis. Peripheral pulses intact. Bilateral lower extremity edema noted. NEUROLOGIC: Awake and alert. Oriented x 3. ASSESSMENT: Non-STEMI, status post cardiac catheterization revealing triple-vessel disease, status post three-vessel CABG Postoperative paroxysmal atrial fibrillation Transaminitis, statin therapy on hold, improving Right pleural effusion status post thoracentesis Coronary artery disease with previous stenting of circumflex and LAD, 2017 Hypertension Hyperlipidemia Obesity: BMI 33.1 Developmental delay, at baseline per patients brother PLAN: Continue postoperative management per CT surgery Patient given dose of IV Lasix this morning Pulmonary following. Plan for right sided thoracentesis. Timing to be determined Continue to monitor LFTs. Resume statin when LFTs have normalized Continue aspirin, Plavix, and metoprolol Discharge planning underway for rehab at time of discharge Further recommendations pending patient course Nurse practitioner note has been reviewed by physician. Signing provider agrees with the documented findings, assessment, and plan of care documented by [employer] as a scribe. Objective - Vital Signs Vital signs: Vital Signs Temp 97.5 F L 01/31/25 09:30 Pulse 88 01/31/25 09:46 Resp 18 01/31/25 09:30 BP 119/66 01/31/25 09:30 Pulse Ox 98 01/31/25 09:30 FiO2 50 01/24/25 21:10 Intake & Output 01/30/25 01/31/25 01/31/25 18:59 06:59 18:59 Intake Total 722 10 210 Output Total 1100 1050 Balance -378 -1040 210 Weight 102.8 kg 102.9 kg Intake: IV 20 10 10 Invasive Line 1 10 10 Sodium Chloride 0.9% 1, 20 000 ml @ 30 mls/hr IV . Q24H [facility] Rx#:[id number] Oral 702 200 Output: Urine 1100 1050 Other: Voiding Method Diaper Diaper Diaper # Voids 2 2 # Bowel Movements 1 1 ABP, PAP, CO, CI - Last Documented Arterial Blood Pressure 129/44 Pulmonary Artery Pressure 38/19 Cardiac Output 5.1 Cardiac Index 2.4 - Labs CBC & Chem 7: 01/31/25 11:14 01/31/25 06:30 Labs: Abnormal Lab Results - Last 24 Hours (Table) 01/30/25 01/31/25 01/31/25 Range/Units 20:22 06:30 06:30 WBC 10.95 H (4.50-10.00) 10*3/uL RBC 3.23 L (4.40-5.60) 10*6/uL Hgb 10.2 L (13.0-17.0) g/dL Hct 31.0 L (39.6-50.0) % Plt Count (140-440) 10*3/uL Sodium 132 L (137-145) mmol/L Chloride 96 L (98-107) mmol/L Creatinine 0.63 L (0.66-1.25) mg/dL POC Glucose (mg/dL) 167 H (70-110) mg/dL Total Bilirubin 1.5 H (0.2-1.3) mg/dL ALT 112 H (4-49) U/L Total Protein 5.9 L (6.3-8.2) g/dL Albumin 3.3 L (3.5-5.0) g/dL 01/31/25 Range/Units 11:14 WBC 10.40 H (4.50-10.00) 10*3/uL RBC 3.17 L (4.40-5.60) 10*6/uL Hgb 10.1 L (13.0-17.0) g/dL Hct 30.7 L (39.6-50.0) % Plt Count 441 H (140-440) 10*3/uL Sodium (137-145) mmol/L Chloride (98-107) mmol/L Creatinine (0.66-1.25) mg/dL POC Glucose (mg/dL) (70-110) mg/dL Total Bilirubin (0.2-1.3) mg/dL ALT (4-49) U/L Total Protein (6.3-8.2) g/dL Albumin (3.5-5.0) g/dL Microbiology - Last 24 Hours (Table) 01/27/25 10:04 Blood Culture - Preliminary Blood
[2025-01-31 11:47] LABS: Glucose,Whole Blood 95 mg/dL (70-110)
[2025-01-31 11:52] LABS: INR 1.1 (<1.2); Partial Thromboplastin Time 23.7 sec (22.0-30.0); Prothrombin Time 11.8 sec (10.0-12.5)
--- NOTE | 2025-01-31 13:21 | P.PN ---
Subjective Progress Note Date: 01/31/25 On today's evaluation of 01/31/2025, the patient is being seen for a follow-up. The patient has a small to moderate-sized right-sided pleural effusion based on the chest x-ray that was done on 01/31/2025. Ultrasound of the chest was also done and it showed a 4.3 cm pocket in the right lung. Chest tube was removed and the patient is having some leakage from the left sided chest tube stoma. The patient is currently postop day #7. The patient remains on aspirin and Plavix. He did have a bloody bowel movement for which a general surgical consultation was obtained. Hemoglobin remained stable. Using the incentive spirometer, pulling approximately 1500 on his incentive spirometer. The patient is currently on a combination of aspirin and Plavix. The patient also metoprolol 25 mg p.o. twice a day. The patient continues to have edema lower extremities bilaterally. He is slow to progress. The hemoglobin today is at 10.1, platelet count of 441, sodium level is 132 with a potassium level of 4.1, BUN is 14 with a creatinine of 0.6. Objective - Vital Signs Vital signs: Vital Signs Temp 97.5 F L 01/31/25 09:30 Pulse 88 01/31/25 09:46 Resp 18 01/31/25 09:30 BP 119/66 01/31/25 09:30 Pulse Ox 98 01/31/25 09:30 FiO2 50 01/24/25 21:10 Intake & Output 01/30/25 01/31/25 01/31/25 18:59 06:59 18:59 Intake Total 722 10 210 Output Total 1100 1050 Balance -378 -1040 210 Weight 102.8 kg 102.9 kg Intake: IV 20 10 10 Invasive Line 1 10 10 Sodium Chloride 0.9% 1, 20 000 ml @ 30 mls/hr IV . Q24H [facility] Rx#:[id number] Oral 702 200 Output: Urine 1100 1050 Other: Voiding Method Diaper Diaper Diaper # Voids 2 # Bowel Movements 1 ABP, PAP, CO, CI - Last Documented Arterial Blood Pressure 129/44 Pulmonary Artery Pressure 38/19 Cardiac Output 5.1 Cardiac Index 2.4 - Exam CONSTITUTIONAL: Appears comfortable, cooperative, no acute distress RESPIRATORY: Lungs sounds diminished in the bases bilaterally. Respirations even, nonlabored. Currently on room air with oxygen saturation 96%. Able to achieve 1500 mL on incentive spirometry. Strong cough. CARDIOVASCULAR: S1, S2 present. Regular rate and rhythm, sinus rhythm on telemetry. Sternum stable. Palpable peripheral pulses bilaterally. Generalized edema present. No calf pain or tenderness noted. Heart hugger, antiembolism stockings, SCDs present. GASTROINTESTINAL: Abdomen soft, nontender, nondistended. Active bowel sounds present 4 quadrants. Tolerating diet. Positive bowel movement 01/30 GENITOURINARY: Patient voiding 2150 mL in the last 24 hours plus some episodes of incontinence INTEGUMENTARY: Skin is warm and dry with evidence of good perfusion. Anterior chest incision well approximated. Left lower extremity EVH site well approximated without redness or drainage. NEUROLOGIC: Cranial nerves II through XII intact MUSKULOSKELETAL: Able to move all extremities, strength equal bilaterally, gait slow with walker PSYCHIATRIC: Alert and oriented to person place and time, slow to respond per his baseline INVASIVE LINES AND TUBES: A/V epicardial pacemaker wires present, grounded - Labs CBC & Chem 7: 01/31/25 11:14 01/31/25 06:30 Labs: Abnormal Lab Results - Last 24 Hours (Table) 01/30/25 01/31/25 01/31/25 Range/Units 20:22 06:30 06:30 WBC 10.95 H (4.50-10.00) 10*3/uL RBC 3.23 L (4.40-5.60) 10*6/uL Hgb 10.2 L (13.0-17.0) g/dL Hct 31.0 L (39.6-50.0) % Sodium 132 L (137-145) mmol/L Chloride 96 L (98-107) mmol/L Creatinine 0.63 L (0.66-1.25) mg/dL POC Glucose (mg/dL) 167 H (70-110) mg/dL Total Bilirubin 1.5 H (0.2-1.3) mg/dL ALT 112 H (4-49) U/L Total Protein 5.9 L (6.3-8.2) g/dL Albumin 3.3 L (3.5-5.0) g/dL Microbiology - Last 24 Hours (Table) 01/27/25 10:04 Blood Culture - Preliminary Blood Assessment and Plan Plan: Multivessel coronary artery disease, non-ST elevated myocardial infarction this admission status post three-vessel CABG, the patient is postop day #7 Postthoracotomy, extubated and the patient is currently on room air oxygen Right-sided pleural effusion, moderate size postthoracentesis with fluid reaccumulation. Ultrasound the chest was noted and the patient will need another thoracentesis to be done within next 24 hours. Lower GI bleed, hemoglobin is stable and the patient will be seen by general surgery Acute blood loss anemia, expected given hemodilution and cardiopulmonary bypass pump Postoperative paroxysmal atrial fibrillation, a known common occurrence after cardiac surgery. Elevated transaminases, likely due to hypotension as well as medication induced, resolving Lower extremity edema History of coronary artery disease with myocardial infarction and previous stent placement to Cx and LAD in August 2017 Hypertension Hyperlipidemia, cholesterol 174, LDL 100.8, triglycerides 139 Obesity Lifetime non-smoker Developmental delay Chronic medical debility secondary above-mentioned comorbidities Plan: Continue using incentive spirometer Aggressive pulmonary toileting Patient is currently on room air oxygen Continue aspirin and Plavix Continue metoprolol 25 mg p.o. twice a day Monitor LFTs and start statins once the LFTs normalize We w will watch for any signs of GI bleeding Lasix 40 mg IV push was given today by the cardiothoracic team Increase activity as tolerated. PT/OT/cardiac rehab following GI/DVT prophylaxis Continue to monitor strict accurate intake and output Insulin management per internal medicine. Patient is not diabetic, preoperative hemoglobin A1c 5.4% Pain control per current medication regimen. No narcotics PM&R physicians consulted for hopeful IPR at discharge More recommendations to follow Time with Patient: Greater than 30
--- NOTE | 2025-01-31 14:05 | P.GSCN ---
History of Present Illness Consult date: 01/31/25 History of present illness: CHIEF COMPLAINT: Shortness of breath HISTORY OF PRESENT ILLNESS: This is a 74-year-old male who presented to the hospital with chest pain and shortness of breath on January 16. He was found to have evidence of a non-ST elevated VA, multivessel coronary artery disease and is now status post CABG x 3 vessels on 01/24/2025. After CABG patient did require 1 unit of platelets, 2 units of FFP and 3 units of blood. Last unit of blood was given on 01/27/2025. Patient's lowest hemoglobin was 6.9. Hemoglobin yesterday 8.5 and has now come up to 10.2 without blood transfusion. Per nursing staff patient did have a large bright red bloody bowel movement with blood clots this morning. Patient is mentally delayed. He denies any abdominal pain. Denies any nausea or vomiting. He reports never having had a EGD or colonoscopy in the past. He is on Plavix. He did also have a thoracentesis for right pleural effusion 5 days ago. Pulmonary service plans to repeat thoracentesis within the next 24 hours. Patient is receiving IV Lasix. Per nu rsing staff patient was able to ambulate in the hallway with assistance. PAST MEDICAL HISTORY: Developmental delay, myocardial infarction, coronary artery disease PAST SURGICAL HISTORY: Heart catheterization with stent in 2017, appendectomy MEDICATIONS: See below ALLERGIES: See below SOCIAL HISTORY: No illicit drug use. REVIEW OF SYSTEMS: CONSTITUTIONAL: Denies fever or chills. HEENT: Denies blurred vision, vision changes, or eye pain. Denies hemoptysis CARDIOVASCULAR: Denies chest pain or pressure. RESPIRATORY: No shortness of breath. GASTROINTESTINAL: See HPI for pertinent findings HEMATOLOGIC: Denies bleeding disorders. GENITOURINARY: Denies any blood in urine or increased urinary frequency. SKIN: Denies pruitis. Denies rash. PHYSICAL EXAM: VITAL SIGNS: Reviewed GENERAL: Well-developed in no acute distress. HEENT: No sclera icterus. Extraocular movements grossly intact. Moist buccal mucosa. Head is atraumatic, normocephalic. No nasal drainage. ABDOMEN: Soft. Nondistended. Nontender NEUROLOGIC: Awake and alert Extremities: Bilateral lower extremity edema LABORATORY DATA: WBC 10.4 Hgb 10.1. Lowest hemoglobin 6.9 on 5/ 6. Hgb 8.5 yesterday PLT 441 Sodium 132 potassium 4.1 creatinine 0.63 IMAGING: Chest ultrasound right pleural effusion marked for thoracentesis ASSESSMENT: 1. Acute GI bleed with bright red blood per rectum 2. Multivessel coronary artery disease, non-ST elevated VA status post three- vessel CABG, postop day #7 3. Right pleural effusion being evaluated for possible second thoracentesis 4. Developmental delay PLAN: - Will plan for EGD and colonoscopy on , 02/03/[address] Santo - Hold Plavix - Continue to medically optimize patient - Continue to monitor hemoglobin - Continue to monitor for any signs or symptoms of bleeding Physician Treating Inspector note has been reviewed by physician. Signing provider agrees with the documented findings, assessment, and plan of care. Past Medical History Past Medical History: Myocardial Infarction (VA) Additional Past Medical History / Comment(s): 08/13/17 STEMI Last Myocardial Infarction Date:: 08/13/17 History of Any Multi-Drug Resistant Organisms: None Reported Past Surgical History: Appendectomy, Heart Catheterization With Stent Additional Past Surgical History / Comment(s): 08-13-17 HEART CATH W/ STENT TO LT CIRC. Past Anesthesia/Blood Transfusion Reactions: No Reported Reaction Date of Last Stent Placement:: 08/13/17 Past Psychological History: No Psychological Hx Reported Smoking Status: Never smoker Past Alcohol Use History: None Reported Past Drug Use History: None Reported - Past Family History Father History Unknown: Yes Family Medical History: Myocardial Infarction (VA) Mother History Unknown: Yes Additional Family Medical History / Comment(s): " Ruptured liver from a motor vehicle accident" Medications and Allergies Home Medications Medication Instructions Recorded Confirmed Type No Known Home Medications 01/16/25 01/16/25 History Allergies Allergy/AdvReac Type Severity Reaction Status Date / Time No Known Allergies Allergy Verified 01/16/25 12:15 Surgical - Exam Vital Signs Temp Pulse Resp BP Pulse Ox 97.9 F 115 H 20 140/86 100 01/16/25 11:08 01/16/25 11:08 01/16/25 11:08 01/16/25 11:08 01/16/25 11:08 Results - Labs 01/31/25 11:14 01/31/25 06:30 Abnormal Lab Results - Last 24 Hours (Table) 01/30/25 01/31/25 01/31/25 Range/Units 20:22 06:30 06:30 WBC 10.95 H (4.50-10.00) 10*3/uL RBC 3.23 L (4.40-5.60) 10*6/uL Hgb 10.2 L (13.0-17.0) g/dL Hct 31.0 L (39.6-50.0) % Plt Count (140-440) 10*3/uL Sodium 132 L (137-145) mmol/L Chloride 96 L (98-107) mmol/L Creatinine 0.63 L (0.66-1.25) mg/dL POC Glucose (mg/dL) 167 H (70-110) mg/dL Total Bilirubin 1.5 H (0.2-1.3) mg/dL ALT 112 H (4-49) U/L Total Protein 5.9 L (6.3-8.2) g/dL Albumin 3.3 L (3.5-5.0) g/dL 01/31/25 Range/Units 11:14 WBC 10.40 H (4.50-10.00) 10*3/uL RBC 3.17 L (4.40-5.60) 10*6/uL Hgb 10.1 L (13.0-17.0) g/dL Hct 30.7 L (39.6-50.0) % Plt Count 441 H (140-440) 10*3/uL Sodium (137-145) mmol/L Chloride (98-107) mmol/L Creatinine (0.66-1.25) mg/dL POC Glucose (mg/dL) (70-110) mg/dL Total Bilirubin (0.2-1.3) mg/dL ALT (4-49) U/L Total Protein (6.3-8.2) g/dL Albumin (3.5-5.0) g/dL Microbiology - Last 24 Hours (Table) 01/27/25 10:04 Blood Culture - Preliminary Blood Diabetes panel 01/31/25 Range/Units 06:30 Sodium 132 L (137-145) mmol/L Potassium 4.1 (3.5-5.1) mmol/L Chloride 96 L (98-107) mmol/L Carbon Dioxide 26 (22-30) mmol/L BUN 14 (9-20) mg/dL Creatinine 0.63 L (0.66-1.25) mg/dL Glucose 96 (74-99) mg/dL Calcium 9.1 (8.4-10.2) mg/dL AST 55 (17-59) U/L ALT 112 H (4-49) U/L Alkaline Phosphatase 107 (38-126) U/L Total Protein 5.9 L (6.3-8.2) g/dL Albumin 3.3 L (3.5-5.0) g/dL Calcium panel 01/31/25 Range/Units 06:30 Calcium 9.1 (8.4-10.2) mg/dL Albumin 3.3 L (3.5-5.0) g/dL Pituitary panel 01/31/25 Range/Units 06:30 Sodium 132 L (137-145) mmol/L Potassium 4.1 (3.5-5.1) mmol/L Chloride 96 L (98-107) mmol/L Carbon Dioxide 26 (22-30) mmol/L BUN 14 (9-20) mg/dL Creatinine 0.63 L (0.66-1.25) mg/dL Glucose 96 (74-99) mg/dL Calcium 9.1 (8.4-10.2) mg/dL Adrenal panel 01/31/25 Range/Units 06:30 Sodium 132 L (137-145) mmol/L Potassium 4.1 (3.5-5.1) mmol/L Chloride 96 L (98-107) mmol/L Carbon Dioxide 26 (22-30) mmol/L BUN 14 (9-20) mg/dL Creatinine 0.63 L (0.66-1.25) mg/dL Glucose 96 (74-99) mg/dL Calcium 9.1 (8.4-10.2) mg/dL Total Bilirubin 1.5 H (0.2-1.3) mg/dL AST 55 (17-59) U/L ALT 112 H (4-49) U/L Alkaline Phosphatase 107 (38-126) U/L Total Protein 5.9 L (6.3-8.2) g/dL Albumin 3.3 L (3.5-5.0) g/dL
--- NOTE | 2025-01-31 15:29 | P.CONS ---
History of Present Illness - Reason for Consult Consult date: 01/31/25 rehab recommendations - Chief Complaint cardiac debility - History of Present Illness Mr Pyle is a 74 y/o right handed male who lives alone, in an apartment [address] [facility]. 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 Does not drive, takes a bus or [facility] services. Patient initially presented to [facility] on January 16 with complaints of SOB, vertigo x 2 weeks. He was found to be in Afib, had complaints of tingling across his chest. EKG with sinus tachycardia, ProBNP 1550. Patient underwent cardiac catheterization, RCA stenosis 70-80%, LAD 80-90% stenosis. CT surgery consulted. Echo with EF 35% with apical septal and inferior hypokinesis. He underwent a 3 vessel CABG on 01/24/25. He developed right pleural effusion, underwent a thoracentesis. PM&R consulted for rehab recommendations. Patient was recently seen by therapy, needing Mod assist with bathing, Max assist with dressing, Max assist with toileting, Min assist 2 ppl for transfers, gait 40 ft RW 2 ppl min assist. 01/31: Patient sitting in chair, feeling better overall. Denies NOVAK, dizziness, SOB, and abdominal pain. Chest wall is sore. He is not on O2, He is unsure of his LBM. He has a male external catheter. His legs are still swollen. He is agreeable to IPR. LILLY director of casework departmentOffice Services Representative of Systems reviewed, as above in HPI Past Medical History Past Medical History: Myocardial Infarction (NV) Additional Past Medical History / Comment(s): 08/13/17 STEMI Last Myocardial Infarction Date:: 08/13/17 History of Any Multi-Drug Resistant Organisms: None Reported Past Surgical History: Appendectomy, Heart Catheterization With Stent Additional Past Surgical History / Comment(s): 08-13-17 HEART CATH W/ STENT TO LT CIRC. Past Anesthesia/Blood Transfusion Reactions: No Reported Reaction Date of Last Stent Placement:: 08/13/17 Past Psychological History: No Psychological Hx Reported Smoking Status: Never smoker Past Alcohol Use History: None Reported Past Drug Use History: None Reported - Past Family History Father History Unknown: Yes Family Medical History: Myocardial Infarction (NV) Mother History Unknown: Yes Additional Family Medical History / Comment(s): " Ruptured liver from a motor vehicle accident" Medications and Allergies Home Medications Medication Instructions Recorded Confirmed Type No Known Home Medications 01/16/25 01/16/25 History Allergies Allergy/AdvReac Type Severity Reaction Status Date / Time No Known Allergies Allergy Verified 01/16/25 12:15 Physical Exam Vitals: Vital Signs Temp Pulse Pulse Resp BP Pulse Ox 01/31/25 11:55 84 01/31/25 11:50 97.8 F 80 18 111/65 100 01/31/25 11:44 84 01/31/25 09:46 88 01/31/25 09:31 92 01/31/25 09:30 97.5 F L 92 18 119/66 98 01/31/25 06:29 121/68 01/31/25 04:10 98.5 F 92 16 112/66 96 01/31/25 02:10 83 16 01/30/25 23:24 98.6 F 83 16 102/63 97 01/30/25 20:18 98.6 F 102 H 16 121/66 97 01/30/25 20:07 78 01/30/25 19:59 72 01/30/25 16:30 98.1 F 86 16 146/70 94 L 01/30/25 16:20 84 01/30/25 16:09 78 Intake and Output 01/31/25 01/31/25 01/31/25 06:59 14:59 22:59 Intake Total 460 Output Total 400 850 Balance -400 -390 Intake: IV 10 Invasive Line 1 10 Oral 450 Output: Urine 400 850 Other: Voiding Method Diaper Diaper # Voids 2 # Bowel Movements 1 Weight 102.9 kg General: WDWN alert, elderly male, sitting up in chair, NAD HEENT: head normocephalic, atraumatic; moist mucous membranes, external ears intact with hearing intact to conversational speech CV: heart hugger on, no acute cardiac distress Lungs: Even, non labored respirations on RA Abdomen: soft, NT, ND MSK: full ROM bilateral UE and LEs, cardiac precautions MMT: B/L UE ?, B/L HF 4-/5, KE and DF 4/5 Neuro:Alert, speech is clear and fluent. CN 2-12 grossly intact Sensation intact to light touch bilateral UE and LEs Psych: mood calm, affect appropriate, A&O x 4 Extremities: calves supple, non tender,+ LE edema pitting from thighs down to feet, SCDs on Skin: intact where exposed except for PIV, chest incision dressed Results CBC & Chem 7: 01/31/25 11:14 01/31/25 06:30 Labs: Abnormal Lab Results - Last 24 Hours (Table) 01/30/25 01/31/25 01/31/25 Range/Units 20:22 06:30 06:30 WBC 10.95 H (4.50-10.00) 10*3/uL RBC 3.23 L (4.40-5.60) 10*6/uL Hgb 10.2 L (13.0-17.0) g/dL Hct 31.0 L (39.6-50.0) % Plt Count (140-440) 10*3/uL Sodium 132 L (137-145) mmol/L Chloride 96 L (98-107) mmol/L Creatinine 0.63 L (0.66-1.25) mg/dL POC Glucose (mg/dL) 167 H (70-110) mg/dL Total Bilirubin 1.5 H (0.2-1.3) mg/dL ALT 112 H (4-49) U/L Total Protein 5.9 L (6.3-8.2) g/dL Albumin 3.3 L (3.5-5.0) g/dL 01/31/25 Range/Units 11:14 WBC 10.40 H (4.50-10.00) 10*3/uL RBC 3.17 L (4.40-5.60) 10*6/uL Hgb 10.1 L (13.0-17.0) g/dL Hct 30.7 L (39.6-50.0) % Plt Count 441 H (140-440) 10*3/uL Sodium (137-145) mmol/L Chloride (98-107) mmol/L Creatinine (0.66-1.25) mg/dL POC Glucose (mg/dL) (70-110) mg/dL Total Bilirubin (0.2-1.3) mg/dL ALT (4-49) U/L Total Protein (6.3-8.2) g/dL Albumin (3.5-5.0) g/dL Microbiology - Last 24 Hours (Table) 01/27/25 10:04 Blood Culture - Preliminary Blood Assessment and Plan Assessment: # Cardiac debility secondary to NSTEMI s/p 3 vessel CABG -cardiac precautions, heart hugger #impaired gait and ADLs -therapies #Postoperative Afib #Right pleural effusion s/p thoracentesis -01/31 possible thoracentesis again #Transaminitis #Developmental Delay #History of NV with coronary stent placement #Comorbidities: CAD, HTN, HLD, Obesity, BMI 33.1 #Pain Management -Tylenol 650 mg Q 4 prn #DVT Proph -ASA 81 mg QD, plavix, Heparin SQ #Your medical dx and management Dispo: Patient is noted to be below baseline function, would benefit from a structured Inpatient rehabilitation stay with 3 hrs of therapy a day, 6-7 days a week with Physical Therapy, Occupational Therapy and Speech Therapy (if indicated). Patient has medical complexity requiring nursing services, close physician medical management, and interdisciplinary team approach for rehab. Patient is motivated and has good social support. Patient WILL NOT need insurance authorization. Patient not yet medically cleared but will plan for IPR once cleared. LILLY Inspector Receiving and [facility] IPR Liaison. Patient seen and examined in collaboration with Dr Álvarez. Thank you for consulting our services.
[2025-01-31 17:00] LABS: Glucose,Whole Blood 114 mg/dL (70-110)
--- NOTE | 2025-01-31 17:35 | P.PN ---
Subjective Progress Note Date: 01/31/25 01/17/2025 this is 74-year-old gentleman, follows with [facility] with past medical history significant for CAD, SD with stents of the circumflex and LAD, morbid obesity, hypertension, hyperlipidemia and multiple other medical issues brought into the ER via EMS from [facility] yesterday secondary to complaints of chest pain. Patient reports during j[facility]ism he developed midsternal chest pain/tingling, nonradiating accompanied by increased shortness of breath and lightheadedness. Denies nausea, vomiting or diarrhea.denies abdominal pain.Patient responds slowly but appropriate;baseline as per PCP.Does not drive, uses the [facility] for transportation. Patient was initiated on IV heparin drip related to elevated troponins. EKG reported sinus tachycardia. Troponins 0.090, 3.400. D-dimer WNL, 0.26. Afebrile, normal WBC, hemoglobin 14.6, platelets 255, INR 1. 137, potassium 4 1, bicarb 24, creatinine 0.62, glucose 103, magnesium 1.6. proBNP 1550, TSH 3.740. Viral studies negative. Chest x-ray reported no acute cardiopulmonary disease/process. Currently denies chest pain, palpitations or shortness of breath.Maintaining O2 sats in the high 90s to 100% on room air. 01/18/2025 completed cardiac catheterization yesterday reported severe triple- vessel disease; proximal RCA 70 to 80% stenosis, mid RCA 60% stenosis,Ostium of the PLV 70% and PDA has 50 to 60% stenosis. Circumflex coronary artery 95% ostial stenosis. LAD 80 to 90% stenosis proximally in the ostial portion. LV function/echo pending. Evaluated by cardiothoracic surgery yesterday, felt to be high risk candidate. Brother Arvind at bedside, disclosed that patient had run out of medications, timeframe unknown. Currently denies chest pain, palpitations or shortness of breath. Telemetry sinus rhythm. 01/19/2025 anticoagulated on IV heparin drip. Maintained on beta-trixie, statin and aspirin. Echo results pending. Telemetry sinus rhythm .denies chest pain, palpitations or shortness of breath. Denies lightheadedness dizziness or focal deficits. Incentive spirometer up to 1999. 01/31/2025 status post CABG,POD#7, transferred out of ICU, currently on stepdown unit. Telemetry sinus rhythm. denies chest pain, palpitations or shortness of breath. Chest x-ray reporting pulmonary vascular congestion, layering right pleural effusion. Chest ultrasound reported right pleural effusion pocket size 12.3 cm, marked for thoracentesis.maintaining O2 sats in the high 90s to 100% on room air. Incentive spirometer 1500. Blood sugars controlled. General surgery consulted for bloody bowel movement this morning,hemoglobin stable, 10.1, platelets 441. Currently maintained on aspirin and Plavix. Objective - Vital Signs Vital signs: Vital Signs Temp 98.2 F 01/31/25 15:48 Pulse 88 01/31/25 15:59 Resp 18 01/31/25 15:48 BP 122/65 01/31/25 15:48 Pulse Ox 100 01/31/25 15:48 FiO2 50 01/24/25 21:10 Intake & Output 01/30/25 01/31/25 01/31/25 18:59 06:59 18:59 Intake Total 722 10 460 Output Total 1100 1050 1600 Balance -378 1040 -1140 Weight 102.8 kg 102.9 kg Intake: IV 20 10 10 Invasive Line 1 10 10 Sodium Chloride 0.9% 1, 20 000 ml @ 30 mls/hr IV . Q24H [facility] Rx#:[id number] Oral 702 450 Output: Urine 1100 1050 1600 Other: Voiding Method Diaper Diaper Diaper # Voids 2 2 # Bowel Movements 1 1 ABP, PAP, CO, CI - Last Documented Arterial Blood Pressure 129/44 Pulmonary Artery Pressure 38/19 Cardiac Output 5.1 Cardiac Index 2.4 - Exam PHYSICAL EXAM: VITAL SIGNS: [Reviewed] GENERAL: Obese 74-year-old male, alert and oriented x 3 sitting up in chair, no acute distress. HEENT: Normocephalic, atraumatic, conjunctivae normal. eyes normal. MMM. NECK: Supple, no JVD. CARDIOVASCULAR: S1, S2 regular. No murmur RESPIRATION: Unlabored, equal air entry,CTA with bilateral bases diminished. ABDOMEN: Soft, nondistended, nontender . No guarding. no masses noted. +bs. LEGS: No edema. no swelling, no clubbing, no cyanosis, no calf tenderness.+DPs. NERVOUS SYSTEM: Cranial N 2-12 grossly normal. No focal deficits. Strength and sensation grossly intact. Skin: Warm and dry, no rashes noted. - Labs CBC & Chem 7: 01/31/25 11:14 01/31/25 06:30 Labs: Abnormal Lab Results - Last 24 Hours (Table) 01/30/25 01/31/25 01/31/25 Range/Units 20:22 06:30 06:30 WBC 10.95 H (4.50-10.00) 10*3/uL RBC 3.23 L (4.40-5.60) 10*6/uL Hgb 10.2 L (13.0-17.0) g/dL Hct 31.0 L (39.6-50.0) % Plt Count (140-440) 10*3/uL Sodium 132 L (137-145) mmol/L Chloride 96 L (98-107) mmol/L Creatinine 0.63 L (0.66-1.25) mg/dL POC Glucose (mg/dL) 167 H (70-110) mg/dL Total Bilirubin 1.5 H (0.2-1.3) mg/dL ALT 112 H (4-49) U/L Total Protein 5.9 L (6.3-8.2) g/dL Albumin 3.3 L (3.5-5.0) g/dL 01/31/25 01/31/25 Range/Units 11:14 16:59 WBC 10.40 H (4.50-10.00) 10*3/uL RBC 3.17 L (4.40-5.60) 10*6/uL Hgb 10.1 L (13.0-17.0) g/dL Hct 30.7 L (39.6-50.0) % Plt Count 441 H (140-440) 10*3/uL Sodium (137-145) mmol/L Chloride (98-107) mmol/L Creatinine (0.66-1.25) mg/dL POC Glucose (mg/dL) 114 H (70-110) mg/dL Total Bilirubin (0.2-1.3) mg/dL ALT (4-49) U/L Total Protein (6.3-8.2) g/dL Albumin (3.5-5.0) g/dL Microbiology - Last 24 Hours (Table) 01/27/25 10:04 Blood Culture - Preliminary Blood Assessment and Plan Assessment: NSTEMI, status post cardiac catheterization reporting triple-vessel disease, status post CABG X3 Paroxysmal atrial fibrillation Right pleural effusion status post thoracentesis. Recurrent, repeat thoracentesis pending. Acute lower GI bleed, general surgery following Transaminitis, resolving CAD with history of SD 2017, stenting of circumflex and LAD, current ran out of his medications-states unclear on timeframe. Last refill RX recorded at [facility] as October 2019. Developmental delay, at baseline per PCP and patient's brother Arvind. Follows with [facility]. Hypertension Hyperlipidemia Morbid obesity, BMI 33 Plan: Continue current medication resume ,monitoring and symptomatic treatment. General surgery consulted for acute GI bleed, recommendations pending. Close monitoring of hemoglobin with repeat labs ordered for a.m. recurrent right pleural effusion, marked for repeat thoracentesis. Aggressive pulmonary toileting with incentive spirometer reinforced. IPR consulted/evaluation pending. Cardiac catheterization verbally reported as triple-vessel disease with cardiothoracic surgery consulted. The impression and plan of care has been dictated as directed. : I performed a history and examination of this patient, discussed the same with the dictator. I agree with the dictator's note ,documented as a scribe. Any additional findings or plans will be noted.
[2025-01-31 20:44] LABS: Glucose,Whole Blood 119 mg/dL (70-110)
[2025-02-01 06:11] LABS: Glucose,Whole Blood 113 mg/dL (70-110)
--- NOTE | 2025-02-01 07:18 | XR ---
EXAMINATION TYPE: XR chest 2V DATE OF EXAM: 02/01/2025 7:09 AM COMPARISON: Chest radiograph from one day prior. CLINICAL INDICATION: Male, 74 years old with history of Postcardiac surgery; [facility] TECHNIQUE: XR chest 2V Frontal and lateral views of the chest. FINDINGS: Lungs/Pleura: Blunting of the right costophrenic angle. There is no evidence of left pleural effusio n, focal consolidation, or pneumothorax Pulmonary vascularity: Pulmonary vascular congestion. Heart/mediastinum: Cardiomediastinal silhouette is enlarged. Left atrial appendage occlusion device i s present. Musculoskeletal: No acute osseous pathology. Midline sternotomy wires are noted. IMPRESSION: * Similar Cardiomegaly and pulmonary vascular congestion. * Layering right pleural effusion. [facility], , 02/01/2025 7:15 AM
[2025-02-01 07:36] LABS: HCT 27.3 % (39.6-50.0); HGB 8.8 g/dL (13.0-17.0); MCHC 32.2 g/dL (32.0-37.0); MCV 96.1 fL (80.0-97.0); Mean Platelet Volume 9.6 fL (9.5-12.2); Platelet Count 418 10*3/uL (140-440); RBC 2.84 10*6/uL (4.40-5.60); RDW 17.8 % (11.5-14.5); WBC 9.83 10*3/uL (4.50-10.00)
[2025-02-01 08:05] LABS: African American GFR (CKD) >90 (>60 ml/min/1.73 sqM); Anion Gap 6 mmol/L; Blood Urea Nitrogen 11 mg/dL (9-20); Calcium 8.3 mg/dL (8.4-10.2); Carbon Dioxide 26 mmol/L (22-30); Chloride 99 mmol/L (98-107); Glucose 94 mg/dL (74-99); Magnesium 1.9 mg/dL (1.6-2.3); Non-African American GFR(CKD) >90 (>60 ml/min/1.73 sqM); Potassium 4.3 mmol/L (3.5-5.1); Sodium 131 mmol/L (137-145)
--- NOTE | 2025-02-01 09:16 | P.PN ---
Subjective Progress Note Date: 02/01/25 Principal diagnosis: Multivessel coronary artery disease, non-ST elevated myocardial infarction this admission. History of coronary artery disease with myocardial infarction and p revious stent placement to his circumflex coronary artery and left anterior descending coronary artery in August 2017, hypertension, hyperlipidemia, obesity, lifetime non-smoker POD #8 coronary artery bypass graft x 3 with left internal mammary artery to the left anterior descending artery, left radial artery to the obtuse marginal artery, reverse saphenous vein graft to the posterior descending artery, endoscopic vein harvesting of the left greater saphenous vein, endoscopic harvesting of the left radial artery, ligation of the left atrial appendage with a 35 mm AtriClip, epiaortic ultrasound, intraoperative transesophageal echocardiogram, graft flow measurements using the [employer] system Acute blood loss anemia, expected given hemodilution and cardiopulmonary bypass pump Hypotension, somewhat expected due to vasoplegia as well as acute blood loss Right pleural effusion, status post right thoracentesis performed by Dr. Osborne from pulmonary medicine. Postoperative paroxysmal atrial fibrillation, a known common occurrence after cardiac surgery. Elevated transaminases, likely due to hypotension as well as medication induced The patient was seen and examined this morning sitting up in recliner on the cardiac stepdown unit with no acute distress. Remains in sinus rhythm, hemodynamically stable. Currently on room air with oxygen saturation in the high 90s, able to achieve 1000 mL on incentive spirometry. Denies significant pain or shortness of breath. Has been up ambulating short distances with a walker and assistance, evaluated by PT/OT and felt appropriate for IPR at discharge. Chest x-ray, labs reviewed. Patient does appear to have a right- sided effusion which is somewhat expected on chest x-ray, ultrasound also completed demonstrating 12.3 cm fluid pocket. Yesterday patient had large bowel movement and there was significant amount of blood in the toilet, hemoglobin remained stable, vital signs remained stable. General surgery was consulted and will plan for flexible sigmoidoscopy on . Patient did have a bowel movement this morning and no blood was seen per nursing. No other new concerns. Objective - Vital Signs Vital signs: Vital Signs Temp 98.1 F 02/01/25 04:52 Pulse 93 02/01/25 04:52 Resp 16 02/01/25 04:52 BP 105/63 02/01/25 06:15 Pulse Ox 98 02/01/25 04:52 FiO2 50 01/24/25 21:10 Intake & Output 01/31/25 02/01/25 02/01/25 18:59 06:59 18:59 Intake Total 460 240 Output Total 1950 Balance -1490 240 Weight 102 kg Intake: IV 10 Invasive Line 1 10 Oral 450 240 Output: Urine 1950 Other: Voiding Method Diaper Diaper # Voids 2 # Bowel Movements 1 2 ABP, PAP, CO, CI - Last Documented Arterial Blood Pressure 129/44 Pulmonary Artery Pressure 38/19 Cardiac Output 5.1 Cardiac Index 2.4 - Exam CONSTITUTIONAL: Appears comfortable, cooperative, no acute distress RESPIRATORY: Lungs sounds diminished in the bases bilaterally. Respirations even, nonlabored. Currently on room air with oxygen saturation 98%. Able to achieve 1000 mL on incentive spirometry. Strong cough. CARDIOVASCULAR: S1, S2 present. Regular rate and rhythm, sinus rhythm on telemetry. Sternum stable. Palpable peripheral pulses bilaterally. Generalized edema present. No calf pain or tenderness noted. Heart hugger, an tiembolism stockings, SCDs present. GASTROINTESTINAL: Abdomen soft, nontender, nondistended. Active bowel sounds present 4 quadrants. Tolerating diet. Positive bowel movement 02/01 GENITOURINARY: Patient voiding 1950 mL in the last 24 hours plus some episodes of incontinence INTEGUMENTARY: Skin is warm and dry with evidence of good perfusion. Anterior chest incision well approximated. Left lower extremity EVH site well approximated without redness or drainage. NEUROLOGIC: Cranial nerves II through XII intact MUSKULOSKELETAL: Able to move all extremities, strength equal bilaterally, gait slow with walker PSYCHIATRIC: Alert and oriented to person place and time, slow to respond per h is baseline INVASIVE LINES AND TUBES: A/V epicardial pacemaker wires present, grounded - Allied health notes Allied health notes reviewed: nursing - Labs CBC & Chem 7: 02/01/25 06:44 02/01/25 06:44 Labs: Abnormal Lab Results - Last 24 Hours (Table) 01/31/25 01/31/25 01/31/25 Range/Units 11:14 16:59 20:43 WBC 10.40 H (4.50-10.00) 10*3/uL RBC 3.17 L (4.40-5.60) 10*6/uL Hgb 10.1 L (13.0-17.0) g/dL Hct 30.7 L (39.6-50.0) % Plt Count 441 H (140-440) 10*3/uL Sodium (137-145) mmol/L Creatinine (0.66-1.25) mg/dL POC Glucose (mg/dL) 114 H 119 H (70-110) mg/dL Calcium (8.4-10.2) mg/dL 02/01/25 02/01/25 02/01/25 Range/Units 06:10 06:44 06:44 WBC (4.50-10.00) 10*3/uL RBC 2.84 L (4.40-5.60) 10*6/uL Hgb 8.8 L (13.0-17.0) g/dL Hct 27.3 L (39.6-50.0) % Plt Count (140-440) 10*3/uL Sodium 131 L (137-145) mmol/L Creatinine 0.65 L (0.66-1.25) mg/dL POC Glucose (mg/dL) 113 H (70-110) mg/dL Calcium 8.3 L (8.4-10.2) mg/dL - Imaging and Cardiology Chest x-ray: report reviewed, image reviewed Assessment and Plan Assessment: Multivessel coronary artery disease, non-ST elevated myocardial infarction this admission status post three-vessel CABG Acute blood loss anemia, expected given hemodilution and cardiopulmonary bypass pump Hypotension, somewhat expected due to vasoplegia as well as acute blood loss Right pleural effusion, status post right thoracentesis performed by Dr. Osborne from pulmonary medicine. Postoperative paroxysmal atrial fibrillation, a known common occurrence after cardiac surgery. Elevated transaminases, likely due to hypotension as well as medication induced, resolving Medical debility 1 episode of bloody stool, possibly from hemorrhoids History of coronary artery disease with myocardial infarction and previous stent placement to Cx and LAD in August 2017 Hypertension Hyperlipidemia, cholesterol 174, LDL 100.8, triglycerides 139 Obesity Lifetime non-smoker Developmental delay Plan: Continue to maximize medical therapy with aspirin, Plavix, beta-trixie. Will increase beta-trixie therapy as tolerated Will restart statins once liver enzymes normalize Continue midodrine to support blood pressure with hold parameters, dose decreased today Encourage incentive spirometry use. Bronchodilators per pulmonology Will monitor daily labs and x-rays. Electrolyte replacement per protocol. Will give 40 mg IV push Lasix today Increase activity as tolerated. PT/OT/cardiac rehab following GI/DVT prophylaxis Continue to monitor strict accurate intake and output Insulin management per internal medicine. Patient is not diabetic, preoperative hemoglobin A1c 5.4% Pain control per current medication regimen. No narcotics Right chest marked for thoracentesis, will defer to pulmonology Anticipate flexible sigmoidoscopy by general surgery on Discharge planning in progress, anticipate discharge to [facility] once flex sigmoidoscopy completed, patient has been accepted by PM&R physicians, no insurance authorization needed More recommendations to follow
[2025-02-01] MEDS: CLOPIDOGREL 75 MG TAB PO SCH (09:58)
[2025-02-01] MEDS: ASPIRIN 81 MG PO SCH (09:58)
[2025-02-01] MEDS: MIDODRINE 5 MG TAB PO SCH (09:58)
[2025-02-01] MEDS: FUROSEMIDE 10 MG/ML 4 ML VIAL IV STA ×2 (09:59→10:35)
[2025-02-01] MEDS: MAGNESIUM SULFATE-D5W PMX 1 GM in DEXTROSE/WATER 1 100ML.BAG IVPB SCH (09:59)
--- NOTE | 2025-02-01 10:48 | P.PN ---
Subjective Progress Note Date: 02/01/25 On today's evaluation of 01/31/2025, the patient is being seen for a follow-up. The patient has a small to moderate-sized right-sided pleural effusion based on the chest x-ray that was done on 01/31/2025. Ultrasound of the chest was also done and it showed a 4.3 cm pocket in the right lung. Chest tube was removed and the patient is having some leakage from the left sided chest tube stoma. The patient is currently postop day #7. The patient remains on aspirin and Plavix. He did have a bloody bowel movement for which a general surgical consultation was obtained. Hemoglobin remained stable. Using the incentive spirometer, pulling approximately 1500 on his incentive spirometer. The patient is currently on a combination of aspirin and Plavix. The patient also metoprolol 25 mg p.o. twice a day. The patient continues to have edema lower extremities bilaterally. He is slow to progress. The hemoglobin today is at 10.1, platelet count of 441, sodium level is 132 with a potassium level of 4.1, BUN is 14 with a creatinine of 0.6. On 02/03/2025, the patient is being seen for a follow-up. Sitting up in a chair and is currently on room air oxygen. No significant respiratory distress. [facility] us to do a thoracentesis with the patient effusion. He continues to have edema lower extremities bilaterally. Repeat chest x-ray from today shows pulm vessel congestion and cardiomegaly and layering right- sided pleural effusion. The patient's white cell count is at 9.8 with a hemoglobin of 8.8. The patient did have a episode of GI bleed yesterday and no further episodes were noted over the past 24 hours. BUN is 11 with a creatinine of 0.6 and a sodium levels at 131. Continues to have lower extremity edema. Objective - Vital Signs Vital signs: Vital Signs Temp 98.1 F 02/01/25 04:52 Pulse 93 02/01/25 04:52 Resp 16 02/01/25 04:52 BP 105/63 02/01/25 06:15 Pulse Ox 98 02/01/25 04:52 FiO2 50 01/24/25 21:10 Intake & Output 01/31/25 02/01/25 02/01/25 18:59 06:59 18:59 Intake Total 460 240 Output Total 1950 Balance -1490 240 Weight 102 kg Intake: IV 10 Invasive Line 1 10 Oral 450 240 Output: Urine 1950 Other: Voiding Method Diaper Diaper # Voids 2 # Bowel Movements 1 2 ABP, PAP, CO, CI - Last Documented Arterial Blood Pressure 129/44 Pulmonary Artery Pressure 38/19 Cardiac Output 5.1 Cardiac Index 2.4 - Exam CONSTITUTIONAL: Appears comfortable, cooperative, no acute distress RESPIRATORY: Lungs sounds diminished in the bases bilaterally. Respirations even, nonlabored. Currently on room air with oxygen saturation 98%. Able to achieve 1000 mL on incentive spirometry. Strong cough. CARDIOVASCULAR: S1, S2 present. Regular rate and rhythm, sinus rhythm on telemetry. Sternum stable. Palpable peripheral pulses bilaterally. Generalized edema present. No calf pain or tenderness noted. Heart hugger, antiembolism stockings, SCDs present. GASTROINTESTINAL: Abdomen soft, nontender, nondistended. Active bowel sounds present 4 quadrants. Tolerating diet. Positive bowel movement 02/01 GENITOURINARY: Patient voiding 1950 mL in the last 24 hours plus some episodes of incontinence INTEGUMENTARY: Skin is warm and dry with evidence of good perfusion. Anterior chest incision well approximated. Left lower extremity EVH site well approximated without redness or drainage. NEUROLOGIC: Cranial nerves II through XII intact MUSKULOSKELETAL: Able to move all extremities, strength equal bilaterally, gait slow with walker PSYCHIATRIC: Alert and oriented to person place and time, slow to respond per his baseline INVASIVE LINES AND TUBES: A/V epicardial pacemaker wires present, grounded - Labs CBC & Chem 7: 02/01/25 06:44 02/01/25 06:44 Labs: Abnormal Lab Results - Last 24 Hours (Table) 01/31/25 01/31/25 01/31/25 Range/Units 11:14 16:59 20:43 WBC 10.40 H (4.50-10.00) 10*3/uL RBC 3.17 L (4.40-5.60) 10*6/uL Hgb 10.1 L (13.0-17.0) g/dL Hct 30.7 L (39.6-50.0) % Plt Count 441 H (140-440) 10*3/uL Sodium (137-145) mmol/L Creatinine (0.66-1.25) mg/dL POC Glucose (mg/dL) 114 H 119 H (70-110) mg/dL Calcium (8.4-10.2) mg/dL 02/01/25 02/01/25 02/01/25 Range/Units 06:10 06:44 06:44 WBC (4.50-10.00) 10*3/uL RBC 2.84 L (4.40-5.60) 10*6/uL Hgb 8.8 L (13.0-17.0) g/dL Hct 27.3 L (39.6-50.0) % Plt Count (140-440) 10*3/uL Sodium 131 L (137-145) mmol/L Creatinine 0.65 L (0.66-1.25) mg/dL POC Glucose (mg/dL) 113 H (70-110) mg/dL Calcium 8.3 L (8.4-10.2) mg/dL Assessment and Plan Plan: Multivessel coronary artery disease, non-ST elevated myocardial infarction this admission status post three-vessel CABG, the patient is postop day # 8 Postthoracotomy, extubated and the patient is currently on room air oxygen Right-sided pleural effusion, moderate size postthoracentesis with fluid reaccumulation. Ultrasound the chest was noted and the patient will need another thoracentesis to be done within next 24 hours. Lower GI bleed, hemoglobin is stable and the patient will be seen by general surgery, currently Nexium is stable and the patient has not had any further episode of GI bleed over the past 24 hours. Drop in hemoglobin was noted. Acute blood loss anemia, expected given hemodilution and cardiopulmonary bypass pump Postoperative paroxysmal atrial fibrillation, a known common occurrence after cardiac surgery. Elevated transaminases, likely due to hypotension as well as medication induced, resolving Lower extremity edema History of coronary artery disease with myocardial infarction and previous stent placement to Cx and LAD in August 2017 Hypertension Hyperlipidemia, cholesterol 174, LDL 100.8, triglycerides 139 Obesity Lifetime non-smoker Developmental delay Chronic medical debility secondary above-mentioned comorbidities Plan: Will plan for thoracentesis today of the right lung Continue using incentive spirometer Aggressive pulmonary toileting Patient is currently on room air oxygen Continue aspirin and Plavix Continue metoprolol 25 mg p.o. twice a day Monitor LFTs and start statins once the LFTs normalize We w will watch for any signs of GI bleeding Chao 40 mg IV push Increase activity as tolerated. PT/OT/cardiac rehab following GI/DVT prophylaxis Continue to monitor strict accurate intake and output Insulin management per internal medicine. Patient is not diabetic, preoperative hemoglobin A1c 5.4% Pain control per current medication regimen. No narcotics PM&R physicians consulted for hopeful IPR at discharge More recommendations to follow Time with Patient: Greater than 30
[2025-02-01 11:38] LABS: Glucose,Whole Blood 117 mg/dL (70-110)
--- NOTE | 2025-02-01 12:42 | P.PN ---
Subjective HISTORY OF PRESENT ILLNESS: This is a 74-year-old male with a past medical history significant for coronary artery disease with previous stenting of the circumflex of the LAD, hypertension, and hyperlipidemia. Patient used to follow in the office with Dr. Guillen but has not been seen since October 2019. We have been asked to see the patient in consultation for chest pain. Patient examined at the bedside in the emergency room. Patient states that he was at [place] yesterday when he began to have chest discomfort. He states the pain was in the middle of the chest. He denied any radiation of the pain. He also reported having some dizziness. The patient was found to have elevated troponins and was started on IV heparin. At the time of examination he denies any chest pain or pressure. Bedside telemetry reveals sinus mechanism. DIAGNOSTICS: - EKG reveals sinus tachycardia with no signs of acute ischemia. - Chest xray negative for acute process - Laboratory data: WBC 6.7. Hemoglobin 13.4. Platelet count 217. D-dimer 0.26. Sodium 137. Potassium 4.1. BUN 11. Creatinine 0.62. Troponin 0.090. 3.400. proBNP 1550. TSH 3.740. - Current home cardiac medications include none. - Most recent echocardiogram obtained in July 2017 revealing ejection fraction 60 to 65% with mild TR - Cardiac catheterization history: July 2017 with stenting of the proximal left circumflex. - Repeat cardiac catheterization performed in August 2017 with stenting of the LAD 01/18/2025 Patient is status post cardiac catheterization yesterday with Dr. Mccabe revealing RCA stenosis at its worst 70 to 80%. There is mid RCA lesion of 60% and divides into PDA and PLV. Ostium of the PLV has 70% stenosis and PDA has 50 to 60% stenosis. Left main artery appears calcified. There is distal left main plaque. Circumflex coronary artery reveals 95% ostial stenosis. LAD has 80 to 90% stenosis proximally in the ostial portion. CT surgery was consulted for evaluation. Patient examined this morning at the bedside. Patient currently denies chest pain or pressure. He denies shortness of breath. Vital signs are stable. Telemetry reveals sinus mechanism. Patient's brother is at the bedside. Patient's brother states that patient is at his baseline. He states that the patient is " somewhat handicapped" and " takes a long time to process what people are saying". He states that the patient has lived on his own independently for many years and takes care of himself and makes all his own medical decisions. He does state that his brother takes the bus frequently and does not have a fleet driver's license as he never driven. He states he is not able to drive because his reaction times are too slow and cannot make sudden decisions. 01/19/2025 Patient examined this morning at bedside. Patient currently denies chest pain or pressure. He denies shortness of breath. Denies dizziness or lightheadedness. Vital signs are stable. He remains on IV heparin. 01/20/2025 Patient examined this morning at the bedside. Patient currently denies chest pain or pressure. He denies shortness of breath. Vital signs are stable. Echocardiogram completed revealing ejection fraction 35% with apical septal and inferior hypokinesis, trace to mild MR, mild aortic stenosis, mild aortic regurgitation. 01/21/2025 Patient examined this morning at bedside. Patient currently denies chest pain or pressure. He denies shortness of breath. He reports nausea this morning with a small episode of emesis. Vital signs are stable. Telemetry Veals sinus mechanism. 01/22/2025 Patient examined this morning at bedside. He denies chest pain or pressure. Denies shortness of breath. Vital signs are stable. 01/23/2025 Patient examined this morning at bedside. Patient currently denies chest pain or pressure. He denies shortness of breath. Vital signs are stable. 01/31/2025 Patient is status post CABG x 3 vessel. Postop day #7. Patient examined this morning. He is sitting up in the chair. Patient currently denies chest pain or pressure. He denies shortness of breath. Telemetry reveals sinus mechanism. Patient is using his incentive spirometer. Blood pressure is stable. 02/01/2025 Patient examined this morning at the bedside. He is sitting up in the chair. Patient currently denies chest pain or pressure. He denies shortness of breath. He has been evaluated by general surgery for an episode of bloody stools yesterday and is scheduled for sigmoidoscopy on 02/03/[address] Santo. PHYSICAL EXAM: VITAL SIGNS: Reviewed. GENERAL: Well-developed in no acute distress. HEENT: Head is normocephalic. Pupils are equal, round. Sclerae anicteric. Mucous membranes of the mouth are moist. Neck supple. No JVD or thyromegaly LUNGS: Respirations even and unlabored. Lungs essentially clear to auscultation bilaterally, right-sided diminished. HEART: Regular rate and rhythm. S1 and S2 heard. ABDOMEN: Soft. Nondistended. Nontender. EXTREMITIES: Normal range of motion. No clubbing or cyanosis. Peripheral pulses intact. Bilateral lower extremity edema noted. NEUROLOGIC: Awake and alert. Oriented x 3. ASSESSMENT: Non-STEMI, status post cardiac catheterization revealing triple-vessel disease, status post three-vessel CABG Postoperative paroxysmal atrial fibrillation Transaminitis, statin therapy on hold, improving Right pleural effusion status post thoracentesis Coronary artery disease with previous stenting of circumflex and LAD, 2017 Hypertension Hyperlipidemia Obesity: BMI 33.1 Developmental delay, at baseline per patients brother PLAN: Continue postoperative management per CT surgery Patient given dose of IV Lasix this morning Pulmonary following. Plan for right sided thoracentesis. Continue to monitor LFTs. Resume statin when LFTs have normalized. CMP ordered for a.m. Continue aspirin, Plavix, and metoprolol General Surgery following. Plan for sigmoidoscopy on 02/03/2025 Further recommendations pending patient course Nurse practitioner note has been reviewed by physician. Signing provider agrees with the documented findings, assessment, and plan of care documented by SOFTWARE DEVELOPMENT TEST ENGINEER as a scribe. Objective - Vital Signs Vital signs: Vital Signs Temp 98.2 F 02/01/25 09:45 Pulse 84 02/01/25 12:31 Resp 20 02/01/25 12:31 BP 101/59 02/01/25 12:31 Pulse Ox 97 02/01/25 12:31 FiO2 50 01/24/25 21:10 Intake & Output 01/31/25 02/01/25 02/01/25 18:59 06:59 18:59 Intake Total 460 240 128 Output Total 1950 550 Balance -1490 240 -422 Weight 102 kg Intake: IV 10 10 Invasive Line 1 10 10 Oral 450 240 118 Output: Urine 1950 550 Other: Voiding Method Diaper Diaper Diaper # Voids 2 # Bowel Movements 1 2 ABP, PAP, CO, CI - Last Documented Arterial Blood Pressure 129/44 Pulmonary Artery Pressure 38/19 Cardiac Output 5.1 Cardiac Index 2.4 - Labs CBC & Chem 7: 02/01/25 06:44 02/01/25 06:44 Labs: Abnormal Lab Results - Last 24 Hours (Table) 01/31/25 01/31/25 02/01/25 Range/Units 16:59 20:43 06:10 RBC (4.40-5.60) 10*6/uL Hgb (13.0-17.0) g/dL Hct (39.6-50.0) % Sodium (137-145) mmol/L Creatinine (0.66-1.25) mg/dL POC Glucose (mg/dL) 114 H 119 H 113 H (70-110) mg/dL Calcium (8.4-10.2) mg/dL 02/01/25 02/01/25 02/01/25 Range/Units 06:44 06:44 11:37 RBC 2.84 L (4.40-5.60) 10*6/uL Hgb 8.8 L (13.0-17.0) g/dL Hct 27.3 L (39.6-50.0) % Sodium 131 L (137-145) mmol/L Creatinine 0.65 L (0.66-1.25) mg/dL POC Glucose (mg/dL) 117 H (70-110) mg/dL Calcium 8.3 L (8.4-10.2) mg/dL
--- NOTE | 2025-02-01 12:50 | P.PCN ---
Date of Procedure: 02/01/25 Preoperative Diagnosis: pleural effusion, right Postoperative Diagnosis: pleural effusion, right Procedure(s) Performed: thoracentesis, right Anesthesia: local Surgeon: Rhianna Thomas Estimated Blood Loss (ml): 0 Pathology: other Condition: stable Disposition: floor Operative Findings: A time out was performed and the chest x-ray was reviewed, the appropriate side was confirmed and marked. My hands were washed immediately prior to the procedure. I wore a surgical cap, mask with protective eyewear, sterile gown and sterile gloves throughout the procedure. The patient was prepped and draped in a sterile manner using chlorhexidine scrub after the appropriate level was percu ssed and confirmed by ultrasound. 1% lidocaine was used to anesthesize the skin, subcutaneous tissue, superior aspect of the rib periosteum and parietal pleura. A finder needle was then introduced over the superior aspect of the rib to locate the pleural fluid; 2colored fluid was aspirated at a depth of approximately 2 cm. A 10-blade scalpel was used to kevin the skin at the insertion site. The Yava-j-Nvwgebif needle was then introduced through the skin incision into the pleural space using negative aspiration pressure and the red colometric indicator to confirm appropriate positioning of the needle. The thoracentesis catheter was then threaded without difficulty. 1450 ml of turbid colored fluid was removed without difficulty. The catheter was then removed. No immediate complications were noted during the procedure. A post-procedure chest x-ray is pending at the time of this note. The fluid will be sent for studies. Estimated blood loss is 0cc
--- NOTE | 2025-02-01 14:07 | XR ---
EXAMINATION TYPE: XR chest 1V DATE OF EXAM: 02/01/2025 1:31 PM COMPARISON: 01/30/2025 CLINICAL INDICATION: Male, 74 years old with history of post thoracentesis; [facility] TECHNIQUE: XR chest 1V Frontal view of the chest. FINDINGS: Lungs/Pleura: Improved aeration of the right lung no significant pleural fusion identified. There is no evidence of pleural effusion, focal consolidation, or pneumothorax. Pulmonary vascularity: Pulmonary vascular congestion. Heart/mediastinum: Cardiomediastinal silhouette is enlarged. Atherosclerotic calcifications are seen in the aorta. Left atrial appendage occlusion device is present. Musculoskeletal: No acute osseous pathology. Midline sternotomy wires are noted. Other findings: None IMPRESSION: No evidence for pneumothorax. No significant pleural fluid remaining. [facility], , 02/01/2025 2:05 PM
--- NOTE | 2025-02-01 14:35 | P.PN ---
Subjective Progress Note Date: 02/01/25 SURGICAL PROGRESS NOTE CHIEF COMPLAINT: Coronary disease status post CABG HISTORY OF PRESENT ILLNESS: Surgical service following regards to GI bleed. He only had 1 bloody bowel movement yesterday. Bowel movement this morning was brown. Denies abdominal pain. Tolerating diet. Hemoglobin did go down from 10.1-8.8. Patient status post right thoracentesis for pleural effusion with Dr. Thomas. PHYSICAL EXAM: VITAL SIGNS: Reviewed. GENERAL: Well-developed in no acute distress. ABDOMEN: Soft. Nondistended. Nontender. NEUROLOGIC: Alert and oriented. Cranial nerves II through XII grossly intact. ASSESSMENT: 1. Acute GI bleed with bright red blood per rectum 2. Multivessel coronary artery disease, non-ST elevated [place] status post three- vessel CABG, postop day #7 3. Right pleural effusion being evaluated for possible second thoracentesis 4. Developmental delay PLAN: - Patient scheduled for flexible sigmoidoscopy on , 02/03/[address] Santo - Continue to hold Plavix - Continue to monitor hemoglobin - Continue to monitor for any signs or symptoms of bleeding Physician Bedspring Assembler note has been reviewed by physician. Signing provider agrees with the documented findings, assessment, and plan of care. Objective - Vital Signs Vital signs: Vital Signs Temp 98.2 F 02/01/25 09:45 Pulse 84 02/01/25 12:31 Resp 20 02/01/25 12:31 BP 101/59 02/01/25 12:31 Pulse Ox 97 02/01/25 12:31 FiO2 50 01/24/25 21:10 Intake & Output 01/31/25 02/01/25 02/01/25 18:59 06:59 18:59 Intake Total 460 240 246 Output Total 1950 550 Balance -1490 240 -304 Weight 102 kg Intake: IV 10 10 Invasive Line 1 10 10 Oral 450 240 236 Output: Urine 1950 550 Other: Voiding Method Diaper Diaper Diaper # Voids 2 2 # Bowel Movements 1 2 ABP, PAP, CO, CI - Last Documented Arterial Blood Pressure 129/44 Pulmonary Artery Pressure 38/19 Cardiac Output 5.1 Cardiac Index 2.4 - Labs CBC & Chem 7: 02/01/25 06:44 02/01/25 06:44 Labs: Abnormal Lab Results - Last 24 Hours (Table) 01/31/25 01/31/25 02/01/25 Range/Units 16:59 20:43 06:10 RBC (4.40-5.60) 10*6/uL Hgb (13.0-17.0) g/dL Hct (39.6-50.0) % Sodium (137-145) mmol/L Creatinine (0.66-1.25) mg/dL POC Glucose (mg/dL) 114 H 119 H 113 H (70-110) mg/dL Calcium (8.4-10.2) mg/dL 02/01/25 02/01/25 02/01/25 Range/Units 06:44 06:44 11:37 RBC 2.84 L (4.40-5.60) 10*6/uL Hgb 8.8 L (13.0-17.0) g/dL Hct 27.3 L (39.6-50.0) % Sodium 131 L (137-145) mmol/L Creatinine 0.65 L (0.66-1.25) mg/dL POC Glucose (mg/dL) 117 H (70-110) mg/dL Calcium 8.3 L (8.4-10.2) mg/dL Assessment and Plan Assessment: sigmoidectomy on Time with Patient: Less than 30
[2025-02-01 16:19] LABS: Glucose,Whole Blood 105 mg/dL (70-110)
[2025-02-01 19:56] LABS: Glucose,Whole Blood 121 mg/dL (70-110)
[2025-02-02 05:52] LABS: Glucose,Whole Blood 106 mg/dL (70-110)
--- NOTE | 2025-02-02 07:15 | XR ---
EXAMINATION TYPE: XR chest 2V DATE OF EXAM: 02/02/2025 6:53 AM COMPARISON: Chest radiograph from one day prior. CLINICAL INDICATION: Male, 74 years old with history of Postcardiac surgery; TECHNIQUE: XR chest 2V Frontal and lateral views of the chest. FINDINGS: Lungs/Pleura: Decreased aeration with increased airspace opacities in the right lung base. There is n o evidence of pleural effusion, left focal consolidation, or pneumothorax. Pulmonary vascularity: Pulmonary vascular congestion. Heart/mediastinum: Cardiomediastinal silhouette is enlarged. Atherosclerotic calcifications are seen in the aorta. Left atrial appendage occlusion device is present. Musculoskeletal: No acute osseous pathology. Midline sternotomy wires are noted. Other findings: None IMPRESSION: Increased right lower lobe airspace opacities correlate for developing atelectasis versus secondary t o pleural effusion. [facility], , 02/02/2025 7:13 AM
[2025-02-02 08:32] LABS: HCT 29.6 % (39.6-50.0); HGB 9.6 g/dL (13.0-17.0); MCH 31.6 pg (27.0-32.0); MCHC 32.4 g/dL (32.0-37.0); MCV 97.4 fL (80.0-97.0); Mean Platelet Volume 9.5 fL (9.5-12.2); Platelet Count 517 10*3/uL (140-440); RBC 3.04 10*6/uL (4.40-5.60); RDW 17.4 % (11.5-14.5); WBC 8.78 10*3/uL (4.50-10.00)
[2025-02-02 08:43] LABS: ALT 64 U/L (4-49); AST 27 U/L (17-59); African American GFR (CKD) >90 (>60 ml/min/1.73 sqM); Albumin 3.1 g/dL (3.5-5.0); Alkaline Phosphatase 93 U/L (38-126); Anion Gap 9 mmol/L; Blood Urea Nitrogen 14 mg/dL (9-20); Calcium 8.7 mg/dL (8.4-10.2); Carbon Dioxide 24 mmol/L (22-30); Chloride 98 mmol/L (98-107); Glucose 93 mg/dL (74-99); Magnesium 2.2 mg/dL (1.6-2.3); Non-African American GFR(CKD) >90 (>60 ml/min/1.73 sqM); Potassium 4.3 mmol/L (3.5-5.1); Sodium 131 mmol/L (137-145); Total Bilirubin 1.5 mg/dL (0.2-1.3); Total Protein 5.8 g/dL (6.3-8.2)
--- NOTE | 2025-02-02 08:45 | P.PN ---
Subjective Progress Note Date: 02/01/25 01/17/2025 this is 74-year-old gentleman, follows with [facility] with past medical history significant for CAD, MT with stents of the circumflex and LAD, morbid obesity, hypertension, hyperlipidemia and multiple other medical issues brought into the ER via EMS from [place] yesterday secondary to complaints of chest pain. Patient reports during [place] he developed midsternal chest pain/tingling, nonradiating accompanied by increased shortness of breath and lightheadedness. Denies nausea, vomiting or diarrhea.denies abdominal pain.Patient responds slowly but appropriate;baseline as per PCP.Does not drive, uses the [facility] [employer] for transportation. Patient was initiated on IV heparin drip related to elevated troponins. EKG reported sinus tachycardia. Troponins 0.090, 3.400. D-dimer WNL, 0.26. Afebrile, normal WBC, hemoglobin 14.6, platelets 255, INR 1. 137, potassium 4 1, bicarb 24, creatinine 0.62, glucose 103, magnesium 1.6. proBNP 1550, TSH 3.740. Viral studies negative. Chest x-ray reported no acute cardiopulmonary disease/process. Currently denies chest pain, palpitations or shortness of breath.Maintaining O2 sats in the high 90s to 100% on room air. 01/18/2025 completed cardiac catheterization yesterday reported severe triple- vessel disease; proximal RCA 70 to 80% stenosis, mid RCA 60% stenosis,Ostium of the PLV 70% and PDA has 50 to 60% stenosis. Circumflex coronary artery 95% ostial stenosis. LAD 80 to 90% stenosis proximally in the ostial portion. LV function/echo pending. Evaluated by cardiothoracic surgery yesterday, felt to be high risk candidate. Brother Arvind at bedside, disclosed that patient had run out of medications, timeframe unknown. Currently denies chest pain, palpitations or shortness of breath. Telemetry sinus rhythm. 01/19/2025 anticoagulated on IV heparin drip. Maintained on beta-trixie, statin and aspirin. Echo results pending. Telemetry sinus rhythm .denies chest pain, palpitations or shortness of breath. Denies lightheadedness dizziness or focal deficits. Incentive spirometer up to 1999. 01/31/2025 status post CABG,POD#7, transferred out of ICU, currently on stepdown unit. Telemetry sinus rhythm. denies chest pain, palpitations or shortness of breath. Chest x-ray reporting pulmonary vascular congestion, layering right pleural effusion. Chest ultrasound reported right pleural effusion pocket size 12.3 cm, marked for thoracentesis.maintaining O2 sats in the high 90s to 100% on room air. Incentive spirometer 1500. Blood sugars controlled. General surgery consulted for bloody bowel movement this morning,hemoglobin stable, 10.1, platelets 441. Currently maintained on aspirin and Plavix. 02/01/2025 isolated event of 1 bloody stool yesterday, no further bleeding epis odes reported. Positive nonbloody bowel movement this morning. hemoglobin remains stable at 8.8, platelets 418. Renal function stable. Sodium 131. evaluated by general surgery and scheduled for sigmoidoscopy on , 02/03/2025. Sitting up in chair, denies chest pain, palpitations or shortness of breath, maintaining O2 sats in the high 90s on room air. Potential thoracentesis of recurrent right pleural effusion being considered. Afebrile, normal WBC Objective - Vital Signs Vital signs: Vital Signs Temp 98.2 F 02/01/25 09:45 Pulse 84 02/01/25 12:31 Resp 20 02/01/25 12:31 BP 101/59 02/01/25 12:31 Pulse Ox 97 02/01/25 12:31 FiO2 50 01/24/25 21:10 Intake & Output 01/31/25 02/01/25 02/01/25 18:59 06:59 18:59 Intake Total 460 240 246 Output Total 1950 550 Balance -1490 240 -304 Weight 102 kg Intake: IV 10 10 Invasive Line 1 10 10 Oral 450 240 236 Output: Urine 1950 550 Other: Voiding Method Diaper Diaper Diaper # Voids 2 2 # Bowel Movements 1 2 ABP, PAP, CO, CI - Last Documented Arterial Blood Pressure 129/44 Pulmonary Artery Pressure 38/19 Cardiac Output 5.1 Cardiac Index 2.4 - Exam PHYSICAL EXAM: VITAL SIGNS: [Reviewed] GENERAL: Obese 74-year-old male, alert and oriented x 3 sitting up in chair, no acute distress. HEENT: Normocephalic, atraumatic, conjunctivae normal. eyes normal. MMM. NECK: Supple, no JVD. CARDIOVASCULAR: S1, S2 regular. No murmur RESPIRATION: Unlabored, equal air entry,CTA with bilateral bases diminished. IS 1000. ABDOMEN: Soft, nondistended, nontender . No guarding. no masses noted. +bs. LEGS: Positive edema. no cyanosis, no calf tenderness.+DPs. NERVOUS SYSTEM: Cranial N 2-12 grossly normal. No focal deficits. Strength and sensation grossly intact. Skin: Warm and dry, no rashes noted. - Labs CBC & Chem 7: 02/01/25 06:44 02/01/25 06:44 Labs: Abnormal Lab Results - Last 24 Hours (Table) 01/31/25 01/31/25 02/01/25 Range/Units 16:59 20:43 06:10 RBC (4.40-5.60) 10*6/uL Hgb (13.0-17.0) g/dL Hct (39.6-50.0) % Sodium (137-145) mmol/L Creatinine (0.66-1.25) mg/dL POC Glucose (mg/dL) 114 H 119 H 113 H (70-110) mg/dL Calcium (8.4-10.2) mg/dL 02/01/25 02/01/25 02/01/25 Range/Units 06:44 06:44 11:37 RBC 2.84 L (4.40-5.60) 10*6/uL Hgb 8.8 L (13.0-17.0) g/dL Hct 27.3 L (39.6-50.0) % Sodium 131 L (137-145) mmol/L Creatinine 0.65 L (0.66-1.25) mg/dL POC Glucose (mg/dL) 117 H (70-110) mg/dL Calcium 8.3 L (8.4-10.2) mg/dL Assessment and Plan Assessment: NSTEMI, status post cardiac catheterization reporting triple-vessel disease, status post CABG X3 Paroxysmal atrial fibrillation Right pleural effusion status post thoracentesis. Recurrent, potential repeat thoracentesis pending. Acute lower GI bleed, sigmoidoscopy pending per general surgery Transaminitis, resolving CAD with history of MT 2017, stenting of circumflex and LAD, current ran out of his medications-states unclear on timeframe. Last refill RX recorded at [facility] as October 2019. Developmental delay, at baseline per PCP and patient's brother Arvind. Follows with [facility]. Hypertension Hyperlipidemia Morbid obesity, BMI 33 Plan: Continue current medication resume ,monitoring and symptomatic treatment. Sigmoidoscopy per general surgery pending . potential repeat thoracentesis as per pulmonary.close monitoring of hemoglobin with repeat labs ordered for a.m. recurrent right pleural effusion, marked for repeat thoracentesis. Maintain aggressive pulmonary toileting with incentive spirometer reinforced. IPR at discharge. Cardiac catheterization verbally reported as triple-vessel disease with cardiothoracic surgery consulted. The impression and plan of care has been dictated as directed. : I performed a history and examination of this patient, discussed the same with the dictator. I agree with the dictator's note ,documented as a scribe. Any additional findings or plans will be noted.
--- NOTE | 2025-02-02 08:47 | P.PN ---
Subjective Progress Note Date: 02/02/25 01/17/2025 this is 74-year-old gentleman, follows with [facility] with past medical history significant for CAD, [place] with stents of the circumflex and LAD, morbid obesity, hypertension, hyperlipidemia and multiple other medical issues brought into the ER via EMS from [place] yesterday secondary to complaints of chest pain. Patient reports during [place] he developed midsternal chest pain/tingling, nonradiating accompanied by increased shortness of breath and lightheadedness. Denies nausea, vomiting or diarrhea.denies abdominal pain.Patient responds slowly but appropriate;baseline as per PCP.Does not drive, [facility]. Patient was initiated on IV heparin drip related to elevated troponins. EKG reported sinus tachycardia. Troponins 0.090, 3.400. D-dimer WNL, 0.26. Afebrile, normal WBC, hemoglobin 14.6, platelets 255, INR 1. 137, potassium 4 1, bicarb 24, creatinine 0.62, glucose 103, magnesium 1.6. proBNP 1550, TSH 3.740. Viral studies negative. Chest x-ray reported no acute cardiopulmonary disease/process. Currently denies chest pain, palpitations or shortness of breath.Maintaining O2 sats in the high 90s to 100% on room air. 01/18/2025 completed cardiac catheterization yesterday reported severe triple- vessel disease; proximal RCA 70 to 80% stenosis, mid RCA 60% stenosis,Ostium of the PLV 70% and PDA has 50 to 60% stenosis. Circumflex coronary artery 95% ostial stenosis. LAD 80 to 90% stenosis proximally in the ostial portion. LV function/echo pending. Evaluated by cardiothoracic surgery yesterday, felt to be high risk candidate. Brother Arvind at bedside, disclosed that patient had run out of medications, timeframe unknown. Currently denies chest pain, palpitations or shortness of breath. Telemetry sinus rhythm. 01/19/2025 anticoagulated on IV heparin drip. Maintained on beta-trixie, statin and aspirin. Echo results pending. Telemetry sinus rhythm .denies chest pain, palpitations or shortness of breath. Denies lightheadedness dizziness or focal deficits. Incentive spirometer up to 1999. 01/31/2025 status post CABG,POD#7, transferred out of ICU, currently on stepdown unit. Telemetry sinus rhythm. denies chest pain, palpitations or shortness of breath. Chest x-ray reporting pulmonary vascular congestion, layering right pleural effusion. Chest ultrasound reported right pleural effusion pocket size 12.3 cm, marked for thoracentesis.maintaining O2 sats in the high 90s to 100% on room air. Incentive spirometer 1500. Blood sugars controlled. General surgery consulted for bloody bowel movement this morning,hemoglobin stable, 10.1, platelets 441. Currently maintained on aspirin and Plavix. 02/01/2025 isolated event of 1 bloody stool yesterday, no further bleeding epis odes reported. Positive nonbloody bowel movement this morning. hemoglobin remains stable at 8.8, platelets 418. Renal function stable. Sodium 131. evaluated by general surgery and scheduled for sigmoidoscopy on , 02/03/2025. Sitting up in chair, denies chest pain, palpitations or shortness of breath, maintaining O2 sats in the high 90s on room air. Potential thoracentesis of recurrent right pleural effusion being considered. Afebrile, normal WBC. 02/02/2025 Plavix continues on hold, scheduled for flex sigmoidoscopy on , 02/03/2025 hemoglobin increased to 9.6. No further bleeding reported. Status post repeat right thoracentesis with 1450 mL turbid colored fluid drained. Tolerated procedure well. Postprocedure chest x-ray reported no evidence of pneumothorax, no significant pleural fluid remaining. Chest x-ray this morning reporting increased right lower lobe airspace opacities, correlate for developing atelectasis versus secondary to pleural effusion. Denies chest pain or shortness of breath. Maintaining O2 sats in the high 90s on room air. Objective - Vital Signs Vital signs: Vital Signs Temp 98.5 F 02/02/25 04:09 Pulse 87 02/02/25 04:09 Resp 18 02/02/25 04:09 BP 94/57 02/02/25 06:21 Pulse Ox 96 02/02/25 04:09 FiO2 50 01/24/25 21:10 Intake & Output 02/01/25 02/02/25 02/02/25 18:59 06:59 18:59 Intake Total 364 Output Total 1200 Balance -836 Weight 97.7 kg Intake: IV 10 Invasive Line 1 10 Oral 354 Output: Urine 1200 Other: Voiding Method Diaper Diaper # Voids 2 # Bowel Movements 1 ABP, PAP, CO, CI - Last Documented Arterial Blood Pressure 129/44 Pulmonary Artery Pressure 38/19 Cardiac Output 5.1 Cardiac Index 2.4 - Exam PHYSICAL EXAM: VITAL SIGNS: [Reviewed] GENERAL: Obese 74-year-old male, alert and oriented x 3 sitting up in chair, no acute distress. HEENT: Normocephalic, atraumatic, conjunctivae normal. eyes normal. MMM. NECK: Supple, no JVD. CARDIOVASCULAR: S1, S2 regular. No murmur RESPIRATION: Unlabored, equal air entry,CTA with bilateral bases diminished. IS 1400. ABDOMEN: Soft, nondistended, nontender . No guarding. no masses noted. +bs. LEGS: Positive edema. no cyanosis, no calf tenderness.+DPs. NERVOUS SYSTEM: Cranial N 2-12 grossly normal. No focal deficits. Strength and sensation grossly intact. Skin: Warm and dry, no rashes noted. - Labs CBC & Chem 7: 02/02/25 07:33 02/02/25 07:33 Labs: Abnormal Lab Results - Last 24 Hours (Table) 02/01/25 02/01/25 02/02/25 Range/Units 11:37 19:54 07:33 RBC 3.04 L (4.40-5.60) 10*6/uL Hgb 9.6 L (13.0-17.0) g/dL Hct 29.6 L (39.6-50.0) % MCV 97.4 H (80.0-97.0) fL Plt Count 517 H (140-440) 10*3/uL Sodium (137-145) mmol/L POC Glucose (mg/dL) 117 H 121 H (70-110) mg/dL Total Bilirubin (0.2-1.3) mg/dL ALT (4-49) U/L Total Protein (6.3-8.2) g/dL Albumin (3.5-5.0) g/dL 02/02/25 Range/Units 07:33 RBC (4.40-5.60) 10*6/uL Hgb (13.0-17.0) g/dL Hct (39.6-50.0) % MCV (80.0-97.0) fL Plt Count (140-440) 10*3/uL Sodium 131 L (137-145) mmol/L POC Glucose (mg/dL) (70-110) mg/dL Total Bilirubin 1.5 H (0.2-1.3) mg/dL ALT 64 H (4-49) U/L Total Protein 5.8 L (6.3-8.2) g/dL Albumin 3.1 L (3.5-5.0) g/dL Microbiology - Last 24 Hours (Table) 01/27/25 10:04 Blood Culture - Final Blood Assessment and Plan Assessment: NSTEMI, status post cardiac catheterization reporting triple-vessel disease, status post CABG X3 Paroxysmal atrial fibrillation Right pleural effusion status post thoracentesis. Repeat thoracentesis 02/01/2025. Acute lower GI bleed, sigmoidoscopy pending. Transaminitis, resolving CAD with history of TX 2016, stenting of circumflex and LAD, current ran out of his medications-states unclear on timeframe. Last refill RX recorded at [facility] as October 2019. Developmental delay, at baseline per PCP and patient's brother Arvind. Follows with [facility]. Hypertension Hyperlipidemia Morbid obesity, BMI 33 Plan: Continue current medication resume ,monitoring and symptomatic treatment. Clear liquid diet and prep as per general surgery with sigmoidoscopy tomorrow. close monitoring of hemoglobin with repeat labs ordered for a.m. Aggressive pulmonary toileting with incentive spirometer reinforced. IPR at discharge, tomorrow as per CTS after sigmoidoscopy. Cardiac catheterization verbally reported as triple-vessel disease with ca rdiothoracic surgery consulted. The impression and plan of care has been dictated as directed. : I performed a history and examination of this patient, discussed the same with the dictator. I agree with the dictator's note ,documented as a scribe. Any additional findings or plans will be noted.
--- NOTE | 2025-02-02 09:23 | P.PN ---
Subjective Progress Note Date: 02/02/25 Principal diagnosis: Multivessel coronary artery disease, non-ST elevated myocardial infarction this admission. History of coronary artery disease with myocardial infarction and p revious stent placement to his circumflex coronary artery and left anterior descending coronary artery in August 2017, hypertension, hyperlipidemia, obesity, lifetime non-smoker POD #9 coronary artery bypass graft x 3 with left internal mammary artery to the left anterior descending artery, left radial artery to the obtuse marginal artery, reverse saphenous vein graft to the posterior descending artery, endoscopic vein harvesting of the left greater saphenous vein, endoscopic harvesting of the left radial artery, ligation of the left atrial appendage with a 35 mm AtriClip, epiaortic ultrasound, intraoperative transesophageal echocardiogram, graft flow measurements using the Make Meaning stim system Acute blood loss anemia, expected given hemodilution and cardiopulmonary bypass pump Hypotension, somewhat expected due to vasoplegia as well as acute blood loss Right pleural effusion, status post right thoracentesis performed by Dr. Osborne on 01/26, repeat right thoracentesis by Dr. Thomas 02/02/25 Postoperative paroxysmal atrial fibrillation, a known common occurrence after cardiac surgery. Elevated transaminases, likely due to hypotension as well as medication induced The patient was seen and examined this morning sitting up in recliner on the cardiac stepdown unit with no acute distress. Remains in sinus rhythm, hemodynamically stable although BP a little soft this morning. Currently on room air with oxygen saturation in the high 90s, able to achieve 1250 mL on incentive spirometry. Denies significant pain or shortness of breath. Has been up ambulating short distances with a walker and assistance, evaluated by PT/OT and felt appropriate for IPR at discharge. Chest x-ray, labs reviewed. Patient had right thoracentesis yesterday by Dr. Thomas with removal of 1450 ml fluid. No further bloody bowel movments, patient to start bowel prep for flex sig tomorrow. Anticipate DC to IPR once flex sig completed. No other new concerns. Objective - Vital Signs Vital signs: Vital Signs Temp 98.5 F 02/02/25 04:09 Pulse 87 02/02/25 04:09 Resp 18 02/02/25 04:09 BP 94/57 02/02/25 06:21 Pulse Ox 96 02/02/25 04:09 FiO2 50 01/24/25 21:10 Intake & Output 02/01/25 02/02/25 02/02/25 18:59 06:59 18:59 Intake Total 364 Output Total 1200 Balance -836 Weight 97.7 kg Intake: IV 10 Invasive Line 1 10 Oral 354 Output: Urine 1200 Other: Voiding Method Diaper Diaper # Voids 2 # Bowel Movements 1 ABP, PAP, CO, CI - Last Documented Arterial Blood Pressure 129/44 Pulmonary Artery Pressure 38/19 Cardiac Output 5.1 Cardiac Index 2.4 - Exam CONSTITUTIONAL: Appears comfortable, cooperative, no acute distress RESPIRATORY: Lungs sounds diminished in the bases bilaterally. Respirations even, nonlabored. Currently on room air with oxygen saturation 96%. Able to achieve 1250 mL on incentive spirometry. Strong cough. CARDIOVASCULAR: S1, S2 present. Regular rate and rhythm, sinus rhythm on telemetry. Sternum stable. Palpable peripheral pulses bilaterally. Generalized edema present. No calf pain or tenderness noted. Heart hugger, a ntiembolism stockings, SCDs present. GASTROINTESTINAL: Abdomen soft, nontender, nondistended. Active bowel sounds present 4 quadrants. Tolerating diet. Positive bowel movement 02/02 GENITOURINARY: Patient voiding 1200 mL in the last 24 hours plus some episodes of incontinence INTEGUMENTARY: Skin is warm and dry with evidence of good perfusion. Anterior chest incision well approximated. Left lower extremity EVH site well approximated without redness or drainage. NEUROLOGIC: Cranial nerves II through XII intact MUSKULOSKELETAL: Able to move all extremities, strength equal bilaterally, gait slow with walker PSYCHIATRIC: Alert and oriented to person place and time, slow to respond per his baseline INVASIVE LINES AND TUBES: A/V epicardial pacemaker wires present, grounded - Allied health notes Allied health notes reviewed: nursing - Labs CBC & Chem 7: 02/02/25 07:33 02/02/25 07:33 Labs: Abnormal Lab Results - Last 24 Hours (Table) 02/01/25 02/01/25 02/02/25 Range/Units 11:37 19:54 07:33 RBC 3.04 L (4.40-5.60) 10*6/uL Hgb 9.6 L (13.0-17.0) g/dL Hct 29.6 L (39.6-50.0) % MCV 97.4 H (80.0-97.0) fL Plt Count 517 H (140-440) 10*3/uL Sodium (137-145) mmol/L POC Glucose (mg/dL) 117 H 121 H (70-110) mg/dL Total Bilirubin (0.2-1.3) mg/dL ALT (4-49) U/L Total Protein (6.3-8.2) g/dL Albumin (3.5-5.0) g/dL 02/02/25 Range/Units 07:33 RBC (4.40-5.60) 10*6/uL Hgb (13.0-17.0) g/dL Hct (39.6-50.0) % MCV (80.0-97.0) fL Plt Count (140-440) 10*3/uL Sodium 131 L (137-145) mmol/L POC Glucose (mg/dL) (70-110) mg/dL Total Bilirubin 1.5 H (0.2-1.3) mg/dL ALT 64 H (4-49) U/L Total Protein 5.8 L (6.3-8.2) g/dL Albumin 3.1 L (3.5-5.0) g/dL Microbiology - Last 24 Hours (Table) 01/27/25 10:04 Blood Culture - Final Blood - Imaging and Cardiology Chest x-ray: report reviewed, image reviewed Assessment and Plan Assessment: Multivessel coronary artery disease, non-ST elevated myocardial infarction this admission status post three-vessel CABG Acute blood loss anemia, expected given hemodilution and cardiopulmonary bypass pump Hypotension, somewhat expected due to vasoplegia as well as acute blood loss Right pleural effusion, status post right thoracentesis performed by Dr. Osborne from pulmonary medicine. Postoperative paroxysmal atrial fibrillation, a known common occurrence after cardiac surgery. Elevated transaminases, likely due to hypotension as well as medication induced, resolving Medical debility 1 episode of bloody stool, possibly from hemorrhoids History of coronary artery disease with myocardial infarction and previous stent placement to Cx and LAD in August 2017 Hypertension Hyperlipidemia, cholesterol 174, LDL 100.8, triglycerides 139 Obesity Lifetime non-smoker Developmental delay Plan: Continue to maximize medical therapy with aspirin, Plavix, beta-trixie. Will increase beta-trixie therapy as tolerated Will restart statin Continue midodrine to support blood pressure with hold parameters Encourage incentive spirometry use. Bronchodilators per pulmonology Will monitor daily labs and x-rays. Electrolyte replacement per protocol Increase activity as tolerated. PT/OT/cardiac rehab following GI/DVT prophylaxis Continue to monitor strict accurate intake and output Insulin management per internal medicine. Patient is not diabetic, preoperative hemoglobin A1c 5.4% Pain control per current medication regimen. No narcotics Weigh daily Shower daily Anticipate flexible sigmoidoscopy by general surgery on Discharge planning in progress, anticipate discharge to [facility] once flex sigmoidoscopy completed, patient has been accepted by PM&R physicians, no insurance authorization needed More recommendations to follow
[2025-02-02] MEDS: PEG 3350 (236 GM/BTL) + LYTES 4,000 ML BOTTLE PO ONE (09:42)
--- NOTE | 2025-02-02 11:08 | P.PN ---
Subjective Progress Note Date: 02/02/25 SURGICAL PROGRESS NOTE CHIEF COMPLAINT: Coronary disease status post CABG HISTORY OF PRESENT ILLNESS: Surgical service following regards to GI bleed. Patient has had only 1 bloody bowel movement during this admission. Hemoglobin is up from 8.8-9.6. Patient is on room air. Vital stable. He is started the GoLytely bowel prep. PHYSICAL EXAM: VITAL SIGNS: Reviewed. GENERAL: Well-developed in no acute distress. ABDOMEN: Soft. Nondistended. Nontender. NEUROLOGIC: Alert and oriented. Cranial nerves II through XII grossly intact. ASSESSMENT: 1. Acute GI bleed with bright red blood per rectum 2. Multivessel coronary artery disease, non-ST elevated RI status post three- vessel CABG, postop day #7 3. Right pleural effusion being evaluated for possible second thoracentesis 4. Developmental delay PLAN: - Patient scheduled for flexible sigmoidoscopy tomorrow, 02/03/[address] Santo - GoLytely bowel prep today - Clear liquid diet today - N.p.o. after midnight Physician Pre Kindergarten Teacher note has been reviewed by physician. Signing provider agrees with the documented findings, assessment, and plan of care. Objective - Vital Signs Vital signs: Vital Signs Temp 97.5 F L 02/02/25 09:29 Pulse 96 02/02/25 09:48 Resp 18 02/02/25 09:30 BP 111/68 02/02/25 09:29 Pulse Ox 98 02/02/25 09:29 FiO2 50 01/24/25 21:10 Intake & Output 02/01/25 02/02/25 02/02/25 18:59 06:59 18:59 Intake Total 364 240 Output Total 1200 Balance -836 240 Weight 97.7 kg Intake: IV 10 Invasive Line 1 10 Oral 354 240 Output: Urine 1200 Other: Voiding Method Diaper Diaper Diaper # Voids 2 # Bowel Movements 1 ABP, PAP, CO, CI - Last Documented Arterial Blood Pressure 129/44 Pulmonary Artery Pressure 38/19 Cardiac Output 5.1 Cardiac Index 2.4 - Labs CBC & Chem 7: 02/02/25 07:33 02/02/25 07:33 Labs: Abnormal Lab Results - Last 24 Hours (Table) 02/01/25 02/01/25 02/02/25 Range/Units 11:37 19:54 07:33 RBC 3.04 L (4.40-5.60) 10*6/uL Hgb 9.6 L (13.0-17.0) g/dL Hct 29.6 L (39.6-50.0) % MCV 97.4 H (80.0-97.0) fL Plt Count 517 H (140-440) 10*3/uL Sodium (137-145) mmol/L POC Glucose (mg/dL) 117 H 121 H (70-110) mg/dL Total Bilirubin (0.2-1.3) mg/dL ALT (4-49) U/L Total Protein (6.3-8.2) g/dL Albumin (3.5-5.0) g/dL 02/02/25 Range/Units 07:33 RBC (4.40-5.60) 10*6/uL Hgb (13.0-17.0) g/dL Hct (39.6-50.0) % MCV (80.0-97.0) fL Plt Count (140-440) 10*3/uL Sodium 131 L (137-145) mmol/L POC Glucose (mg/dL) (70-110) mg/dL Total Bilirubin 1.5 H (0.2-1.3) mg/dL ALT 64 H (4-49) U/L Total Protein 5.8 L (6.3-8.2) g/dL Albumin 3.1 L (3.5-5.0) g/dL Microbiology - Last 24 Hours (Table) 01/27/25 10:04 Blood Culture - Final Blood
[2025-02-02 11:31] LABS: Glucose,Whole Blood 90 mg/dL (70-110)
--- NOTE | 2025-02-02 13:21 | P.PN ---
Subjective HISTORY OF PRESENT ILLNESS: This is a 74-year-old male with a past medical history significant for coronary artery disease with previous stenting of the circumflex of the LAD, hypertension, and hyperlipidemia. Patient used to follow in the office with Dr. Guillen but has not been seen since October 2019. We have been asked to see the patient in consultation for chest pain. Patient examined at the bedside in the emergency room. Patient states that he was at [employer] yesterday when he began to have chest discomfort. He states the pain was in the middle of the chest. He denied any radiation of the pain. He also reported having some dizziness. The patient was found to have elevated troponins and was started on IV heparin. At the time of examination he denies any chest pain or pressure. Bedside telemetry reveals sinus mechanism. DIAGNOSTICS: - EKG reveals sinus tachycardia with no signs of acute ischemia. - Chest xray negative for acute process - Laboratory data: WBC 6.7. Hemoglobin 13.4. Platelet count 217. D-dimer 0.26. Sodium 137. Potassium 4.1. BUN 11. Creatinine 0.62. Troponin 0.090. 3.400. proBNP 1550. TSH 3.740. - Current home cardiac medications include none. - Most recent echocardiogram obtained in July 2017 revealing ejection fraction 60 to 65% with mild TR - Cardiac catheterization history: July 2017 with stenting of the proximal left circumflex. - Repeat cardiac catheterization performed in August 2017 with stenting of the LAD 01/18/2025 Patient is status post cardiac catheterization yesterday with Dr. Mccabe revealing RCA stenosis at its worst 70 to 80%. There is mid RCA lesion of 60% and divides into PDA and PLV. Ostium of the PLV has 70% stenosis and PDA has 50 to 60% stenosis. Left main artery appears calcified. There is distal left main plaque. Circumflex coronary artery reveals 95% ostial stenosis. LAD has 80 to 90% stenosis proximally in the ostial portion. CT surgery was consulted for evaluation. Patient examined this morning at the bedside. Patient currently denies chest pain or pressure. He denies shortness of breath. Vital signs are stable. Telemetry reveals sinus mechanism. Patient's brother is at the bedside. Patient's brother states that patient is at his baseline. He states that the patient is " somewhat handicapped" and " takes a long time to process what people are saying". He states that the patient has lived on his own independently for many years and takes care of himself and makes all his own medical decisions. He does state that his brother takes the bus frequently and does not have a combine driver's license as he never driven. He states he is not able to drive because his reaction times are too slow and cannot make sudden decisions. 01/19/2025 Patient examined this morning at bedside. Patient currently denies chest pain or pressure. He denies shortness of breath. Denies dizziness or lightheadedness. Vital signs are stable. He remains on IV heparin. 01/20/2025 Patient examined this morning at the bedside. Patient currently denies chest pain or pressure. He denies shortness of breath. Vital signs are stable. Echocardiogram completed revealing ejection fraction 35% with apical septal and inferior hypokinesis, trace to mild MR, mild aortic stenosis, mild aortic regurgitation. 01/21/2025 Patient examined this morning at bedside. Patient currently denies chest pain or pressure. He denies shortness of breath. He reports nausea this morning with a small episode of emesis. Vital signs are stable. Telemetry Veals sinus mechanism. 01/22/2025 Patient examined this morning at bedside. He denies chest pain or pressure. Denies shortness of breath. Vital signs are stable. 01/23/2025 Patient examined this morning at bedside. Patient currently denies chest pain or pressure. He denies shortness of breath. Vital signs are stable. 01/31/2025 Patient is status post CABG x 3 vessel. Postop day #7. Patient examined this morning. He is sitting up in the chair. Patient currently denies chest pain or pressure. He denies shortness of breath. Telemetry reveals sinus mechanism. Patient is using his incentive spirometer. Blood pressure is stable. 02/01/2025 Patient examined this morning at the bedside. He is sitting up in the chair. Patient currently denies chest pain or pressure. He denies shortness of breath. He has been evaluated by general surgery for an episode of bloody stools yesterday and is scheduled for sigmoidoscopy on 02/03/[address] Santo. 02/02/2025 Patient examined this morning at the bedside. Patient currently denies chest pain or pressure. He denies shortness of breath. Patient underwent right-sided thoracentesis yesterday with removal of 1450 cc of fluid. Vital signs are stable. PHYSICAL EXAM: VITAL SIGNS: Reviewed. GENERAL: Well-developed in no acute distress. HEENT: Head is normocephalic. Pupils are equal, round. Sclerae anicteric. Mucous membranes of the mouth are moist. Neck supple. No JVD or thyromegaly LUNGS: Respirations even and unlabored. Lungs essentially clear to auscultation bilaterally, right-sided diminished. HEART: Regular rate and rhythm. S1 and S2 heard. ABDOMEN: Soft. Nondistended. Nontender. EXTREMITIES: Normal range of motion. No clubbing or cyanosis. Peripheral pulses intact. Bilateral lower extremity edema noted. NEUROLOGIC: Awake and alert. Oriented x 3. ASSESSMENT: Non-STEMI, status post cardiac catheterization revealing triple-vessel disease, status post three-vessel CABG Postoperative paroxysmal atrial fibrillation Transaminitis, statin therapy on hold, improving Right pleural effusion status post thoracentesis 02/02/2024 Coronary artery disease with previous stenting of circumflex and LAD, 2017 Hypertension Hyperlipidemia Obesity: BMI 33.1 Developmental delay, at baseline per patients brother PLAN: Continue postoperative management per CT surgery Statin resumed today Continue aspirin, Plavix, and metoprolol General Surgery following. Plan for sigmoidoscopy on 02/03/2025 Further recommendations pending patient course Nurse practitioner note has been reviewed by physician. Signing provider agrees with the documented findings, assessment, and plan of care documented by [employer] as a scribe. Objective - Vital Signs Vital signs: Vital Signs Temp 97.5 F L 02/02/25 09:29 Pulse 96 02/02/25 09:48 Resp 18 02/02/25 09:29 BP 111/68 02/02/25 09:29 Pulse Ox 98 02/02/25 09:29 FiO2 50 01/24/25 21:10 Intake & Output 02/01/25 02/02/25 02/02/25 18:59 06:59 18:59 Intake Total 364 240 Output Total 1200 Balance -836 240 Weight 97.7 kg Intake: IV 10 Invasive Line 1 10 Oral 354 240 Output: Urine 1200 Other: Voiding Method Diaper Diaper # Voids 2 # Bowel Movements 1 ABP, PAP, CO, CI - Last Documented Arterial Blood Pressure 129/44 Pulmonary Artery Pressure 38/19 Cardiac Output 5.1 Cardiac Index 2.4 - Labs CBC & Chem 7: 02/02/25 07:33 02/02/25 07:33 Labs: Abnormal Lab Results - Last 24 Hours (Table) 02/01/25 02/01/25 02/02/25 Range/Units 11:37 19:54 07:33 RBC 3.04 L (4.40-5.60) 10*6/uL Hgb 9.6 L (13.0-17.0) g/dL Hct 29.6 L (39.6-50.0) % MCV 97.4 H (80.0-97.0) fL Plt Count 517 H (140-440) 10*3/uL Sodium (137-145) mmol/L POC Glucose (mg/dL) 117 H 121 H (70-110) mg/dL Total Bilirubin (0.2-1.3) mg/dL ALT (4-49) U/L Total Protein (6.3-8.2) g/dL Albumin (3.5-5.0) g/dL 02/02/25 Range/Units 07:33 RBC (4.40-5.60) 10*6/uL Hgb (13.0-17.0) g/dL Hct (39.6-50.0) % MCV (80.0-97.0) fL Plt Count (140-440) 10*3/uL Sodium 131 L (137-145) mmol/L POC Glucose (mg/dL) (70-110) mg/dL Total Bilirubin 1.5 H (0.2-1.3) mg/dL ALT 64 H (4-49) U/L Total Protein 5.8 L (6.3-8.2) g/dL Albumin 3.1 L (3.5-5.0) g/dL Microbiology - Last 24 Hours (Table) 01/27/25 10:04 Blood Culture - Final Blood
--- NOTE | 2025-02-02 15:03 | P.PN ---
Subjective Progress Note Date: 02/02/25 On today's evaluation of 01/31/2025, the patient is being seen for a follow-up. The patient has a small to moderate-sized right-sided pleural effusion based on the chest x-ray that was done on 01/31/2025. Ultrasound of the chest was also done and it showed a 4.3 cm pocket in the right lung. Chest tube was removed and the patient is having some leakage from the left sided chest tube stoma. The patient is currently postop day #7. The patient remains on aspirin and Plavix. He did have a bloody bowel movement for which a general surgical consultation was obtained. Hemoglobin remained stable. Using the incentive spirometer, pulling approximately 1500 on his incentive spirometer. The patient is currently on a combination of aspirin and Plavix. The patient also metoprolol 25 mg p.o. twice a day. The patient continues to have edema lower extremities bilaterally. He is slow to progress. The hemoglobin today is at 10.1, platelet count of 441, sodium level is 132 with a potassium level of 4.1, BUN is 14 with a creatinine of 0.6. On 02/03/2025, the patient is being seen for a follow-up. Sitting up in a chair and is currently on room air oxygen. No significant respiratory distress. [facility] surgery requested us to do a thoracentesis with the patient effusion. He continues to have edema lower extremities bilaterally. Repeat chest x-ray from today shows pulm vessel congestion and cardiomegaly and layering right- sided pleural effusion. The patient's white cell count is at 9.8 with a hemoglobin of 8.8. The patient did have a episode of GI bleed yesterday and no further episodes were noted over the past 24 hours. BUN is 11 with a creatinine of 0.6 and a sodium levels at 131. Continues to have lower extremity edema. On 02/02/2025, the patient is being seen for a follow-up. Patient is doing well. His postthoracentesis and a total of 1.4 L of pleural fluid was aspirated from the right lung. The patient is not having any respite difficulties. Follow-up chest x-ray shows some atelectatic change in left lung base. No recurrent right-sided pleural effusion. The patient continues to use the incentive spirometer. Sitting up in a chair. Continues to have lower extremity edema. No evidence of any GI bleeding for now. Looking for an inpatient rehabilitation. Meanwhile, the white cell count today is at 8.7 with a hemoglobin 9.6 and a platelet count of 517. Sodium levels at 120potassium level 4.3, chloride is 98 with a bicarb of 24, BUN of 14 with a creatinine of 0.6. No other significant events overnight. Fluid balance is -836 cc over the past 24 hours. The patient has no new complaints. Objective - Vital Signs Vital signs: Vital Signs Temp 97.5 F L 02/02/25 09:29 Pulse 96 02/02/25 09:48 Resp 18 02/02/25 09:30 BP 111/68 02/02/25 09:29 Pulse Ox 98 02/02/25 09:29 FiO2 50 01/24/25 21:10 Intake & Output 02/01/25 02/02/25 02/02/25 18:59 06:59 18:59 Intake Total 364 240 Output Total 1200 Balance -836 240 Weight 97.7 kg Intake: IV 10 Invasive Line 1 10 Oral 354 240 Output: Urine 1200 Other: Voiding Method Diaper Diaper Diaper # Voids 2 # Bowel Movements 1 ABP, PAP, CO, CI - Last Documented Arterial Blood Pressure 129/44 Pulmonary Artery Pressure 38/19 Cardiac Output 5.1 Cardiac Index 2.4 - Exam CONSTITUTIONAL: Appears comfortable, cooperative, no acute distress RESPIRATORY: Lungs sounds diminished in the bases bilaterally. Respirations even, nonlabored. Currently on room air with oxygen saturation 96%. Able to achieve 1250 mL on incentive spirometry. Strong cough. CARDIOVASCULAR: S1, S2 present. Regular rate and rhythm, sinus rhythm on telemetry. Sternum stable. Palpable peripheral pulses bilaterally. Generalized edema present. No calf pain or tenderness noted. Heart hugger, antiembolism stockings, SCDs present. GASTROINTESTINAL: Abdomen soft, nontender, nondistended. Active bowel sounds present 4 quadrants. Tolerating diet. Positive bowel movement 02/02 GENITOURINARY: Patient voiding 1200 mL in the last 24 hours plus some episodes of incontinence INTEGUMENTARY: Skin is warm and dry with evidence of good perfusion. Anterior chest incision well approximated. Left lower extremity EVH site well approximated without redness or drainage. NEUROLOGIC: Cranial nerves II through XII intact MUSKULOSKELETAL: Able to move all extremities, strength equal bilaterally, gait slow with walker PSYCHIATRIC: Alert and oriented to person place and time, slow to respond per his baseline INVASIVE LINES AND TUBES: A/V epicardial pacemaker wires present, grounded - Labs CBC & Chem 7: 02/02/25 07:33 02/02/25 07:33 Labs: Abnormal Lab Results - Last 24 Hours (Table) 02/01/25 02/01/25 02/02/25 Range/Units 11:37 19:54 07:33 RBC 3.04 L (4.40-5.60) 10*6/uL Hgb 9.6 L (13.0-17.0) g/dL Hct 29.6 L (39.6-50.0) % MCV 97.4 H (80.0-97.0) fL Plt Count 517 H (140-440) 10*3/uL Sodium (137-145) mmol/L POC Glucose (mg/dL) 117 H 121 H (70-110) mg/dL Total Bilirubin (0.2-1.3) mg/dL ALT (4-49) U/L Total Protein (6.3-8.2) g/dL Albumin (3.5-5.0) g/dL 02/02/25 Range/Units 07:33 RBC (4.40-5.60) 10*6/uL Hgb (13.0-17.0) g/dL Hct (39.6-50.0) % MCV (80.0-97.0) fL Plt Count (140-440) 10*3/uL Sodium 131 L (137-145) mmol/L POC Glucose (mg/dL) (70-110) mg/dL Total Bilirubin 1.5 H (0.2-1.3) mg/dL ALT 64 H (4-49) U/L Total Protein 5.8 L (6.3-8.2) g/dL Albumin 3.1 L (3.5-5.0) g/dL Microbiology - Last 24 Hours (Table) 01/27/25 10:04 Blood Culture - Final Blood Assessment and Plan Plan: Multivessel coronary artery disease, non-ST elevated myocardial infarction this admission status post three-vessel CABG, the patient is postop day # 9 Postthoracotomy, extubated and the patient is currently on room air oxygen Right-sided pleural effusion, moderate size postthoracentesis with fluid reaccumulation. The patient underwent a second thoracentesis on 02/01/2025 with removal of 1.4 L of pleural fluid without any complications. Lower GI bleed, hemoglobin is stable and the patient will be seen by general surgery, currently Nexium is stable and the patient has not had any further episode of GI bleed. The hemoglobin remained stable and the patient has no evidence of any ongoing GI bleeding Acute blood loss anemia, expected given hemodilution and cardiopulmonary bypass pump Postoperative paroxysmal atrial fibrillation, a known common occurrence after cardiac surgery. Elevated transaminases, likely due to hypotension as well as medication induced, resolving Lower extremity edema History of coronary artery disease with myocardial infarction and previous stent placement to Cx and LAD in August 2017 Hypertension Hyperlipidemia, cholesterol 174, LDL 100.8, triglycerides 139 Obesity Lifetime non-smoker Developmental delay Chronic medical debility secondary above-mentioned comorbidities Plan: Thoracentesis was performed without any complications Continue using incentive spirometer Aggressive pulmonary toileting Patient is currently on room air oxygen Continue aspirin and Plavix Continue metoprolol 25 mg p.o. twice a day Monitor LFTs and start statins once the LFTs normalize We w will watch for any signs of GI bleeding Hemoglobin remained stable Increase activity as tolerated. PT/OT/cardiac rehab following GI/DVT prophylaxis Continue to monitor strict accurate intake and output Insulin management per internal medicine. Patient is not diabetic, preoperative hemoglobin A1c 5.4% Pain control per current medication regimen. No narcotics PM&R physicians consulted for hopeful IPR at discharge More recommendations to follow Time with Patient: Greater than 30
[2025-02-02 16:13] LABS: Glucose,Whole Blood 81 mg/dL (70-110)
[2025-02-02 19:56] LABS: Glucose,Whole Blood 110 mg/dL (70-110)
[2025-02-02] MEDS: ATORVASTATIN 40 MG TAB PO SCH (21:15)
[2025-02-03 04:48] VITALS: RESP 16
[2025-02-03 06:33] LABS: Glucose,Whole Blood 102 mg/dL (70-110)
--- NOTE | 2025-02-03 07:11 | P.PN ---
Subjective Progress Note Date: 02/03/25 Principal diagnosis: Multivessel coronary artery disease, non-ST elevated myocardial infarction this admission. History of coronary artery disease with myocardial infarction and p revious stent placement to his circumflex coronary artery and left anterior descending coronary artery in August 2017, hypertension, hyperlipidemia, obesity, lifetime non-smoker POD #10 coronary artery bypass graft x 3 with left internal mammary artery to the left anterior descending artery, left radial artery to the obtuse marginal artery, reverse saphenous vein graft to the posterior descending artery, endoscopic vein harvesting of the left greater saphenous vein, endoscopic harvesting of the left radial artery, ligation of the left atrial appendage with a 35 mm AtriClip, epiaortic ultrasound, intraoperative transesophageal echocardiogram, graft flow measurements using the [employer] stim system Acute blood loss anemia, expected given hemodilution and cardiopulmonary bypass pump Hypotension, somewhat expected due to vasoplegia as well as acute blood loss Right pleural effusion, status post right thoracentesis performed by Dr. Osborne on 01/26, repeat right thoracentesis by Dr. Thomas 02/02/25 Postoperative paroxysmal atrial fibrillation, a known common occurrence after cardiac surgery. Elevated transaminases, likely due to hypotension as well as medication induced The patient was seen and examined this morning sitting up in recliner on the cardiac stepdown unit with no acute distress. Remains in sinus rhythm, hemodynamically stable although BP a little soft again this morning. Currently on room air with oxygen saturation in the high 90s, able to achieve 1000 mL on incentive spirometry. Denies significant pain or shortness of breath. Has been up ambulating short distances with a walker and assistance, evaluated by PT/OT and felt appropriate for IPR at discharge. Chest x-ray, labs reviewed. No further bloody bowel movments, flex sig this morning. Anticipate DC to IPR once flex sig completed. No other new concerns. Objective - Vital Signs Vital signs: Vital Signs Temp 97.9 F 02/02/25 20:00 Pulse 80 02/03/25 04:00 Resp 16 02/03/25 04:00 BP 98/59 02/03/25 04:00 Pulse Ox 98 02/03/25 04:00 FiO2 50 01/24/25 21:10 Intake & Output 02/02/25 02/03/25 02/03/25 18:59 06:59 18:59 Intake Total 840 Output Total 400 Balance 440 Weight 96.5 kg Intake: Oral 840 Output: Urine 400 Other: Voiding Method Diaper Diaper # Voids 1 # Bowel Movements 1 ABP, PAP, CO, CI - Last Documented Arterial Blood Pressure 129/44 Pulmonary Artery Pressure 38/19 Cardiac Output 5.1 Cardiac Index 2.4 - Exam CONSTITUTIONAL: Appears comfortable, cooperative, no acute distress RESPIRATORY: Lungs sounds diminished in the bases bilaterally. Respirations even, nonlabored. Currently on room air with oxygen saturation 98%. Able to achieve 1000 mL on incentive spirometry. Strong cough. CARDIOVASCULAR: S1, S2 present. Regular rate and rhythm, sinus rhythm on te lemetry. Sternum stable. Palpable peripheral pulses bilaterally. Generalized edema present. No calf pain or tenderness noted. Heart hugger, antiembolism stockings, SCDs present. GASTROINTESTINAL: Abdomen soft, nontender, nondistended. Active bowel sounds present 4 quadrants. Tolerating diet. Positive multiple bowel movements 02/02 GENITOURINARY: Patient voiding 400 mL in the last 24 hours plus episodes of incontinence, wearing briefs INTEGUMENTARY: Skin is warm and dry with evidence of good perfusion. Anterior chest incision well approximated. Left lower extremity EVH site well ap proximated without redness or drainage. NEUROLOGIC: Cranial nerves II through XII intact MUSKULOSKELETAL: Able to move all extremities, strength equal bilaterally, gait slow with walker PSYCHIATRIC: Alert and oriented to person place and time, slow to respond per his baseline - Allied health notes Allied health notes reviewed: nursing - Labs CBC & Chem 7: 02/02/25 07:33 02/02/25 07:33 Labs: Abnormal Lab Results - Last 24 Hours (Table) 02/02/25 02/02/25 Range/Units 07:33 07:33 RBC 3.04 L (4.40-5.60) 10*6/uL Hgb 9.6 L (13.0-17.0) g/dL Hct 29.6 L (39.6-50.0) % MCV 97.4 H (80.0-97.0) fL Plt Count 517 H (140-440) 10*3/uL Sodium 131 L (137-145) mmol/L Total Bilirubin 1.5 H (0.2-1.3) mg/dL ALT 64 H (4-49) U/L Total Protein 5.8 L (6.3-8.2) g/dL Albumin 3.1 L (3.5-5.0) g/dL - Imaging and Cardiology Chest x-ray: image reviewed Assessment and Plan Assessment: Multivessel coronary artery disease, non-ST elevated myocardial infarction this admission status post three-vessel CABG Acute blood loss anemia, expected given hemodilution and cardiopulmonary bypass pump Hypotension, somewhat expected due to vasoplegia as well as acute blood loss Right pleural effusion, status post right thoracentesis performed by Dr. Osborne from pulmonary medicine. Postoperative paroxysmal atrial fibrillation, a known common occurrence after cardiac surgery. Elevated transaminases, likely due to hypotension as well as medication induced, resolving Medical debility 1 episode of bloody stool, possibly from hemorrhoids History of coronary artery disease with myocardial infarction and previous stent placement to Cx and LAD in August 2017 Hypertension Hyperlipidemia, cholesterol 174, LDL 100.8, triglycerides 139 Obesity Lifetime non-smoker Developmental delay Plan: Continue to maximize medical therapy with aspirin, Plavix, statin, beta-trixie. Will increase beta-trixie therapy as tolerated Continue midodrine to support blood pressure with hold parameters Encourage incentive spirometry use. Bronchodilators per pulmonology Will monitor daily labs and x-rays. Electrolyte replacement per protocol Increase activity as tolerated. PT/OT/cardiac rehab following GI/DVT prophylaxis Continue to monitor strict accurate intake and output Insulin management per internal medicine. Patient is not diabetic, preoperative hemoglobin A1c 5.4% Pain control per current medication regimen. No narcotics Weigh daily Shower daily Anticipate flexible sigmoidoscopy by general surgery today Discharge planning in progress, anticipate discharge to [facility] once flex sigmoidoscopy completed, patient has been accepted by PM&R physicians, no insurance authorization needed More recommendations to follow
--- NOTE | 2025-02-03 07:27 | XR ---
EXAMINATION TYPE: XR chest 2V DATE OF EXAM: 02/03/2025 6:23 AM COMPARISON: Chest radiograph from one day prior. CLINICAL INDICATION: Male, 74 years old with history of post cardiac surgery; [facility] TECHNIQUE: XR chest 2V Frontal and lateral views of the chest. FINDINGS: Lungs/Pleura: Decreased aeration with increased airspace opacities in the right lung base. There is no evidence of pleural effusion, left focal consolidation, or pneumothorax. Pulmonary vascularity: Pulmonary vascular congestion. Heart/mediastinum: Cardiomediastinal silhouette is enlarged. Atherosclerotic calcifications are seen in the aorta. Left atrial appendage occlusion device is present. Musculoskeletal: No acute osseous pathology. Midline sternotomy wires are noted. Other findings: None IMPRESSION: Similar right lower lobe airspace opacities. [facility], , 02/03/2025 7:25 AM
[2025-02-03 07:37] LABS: HCT 27.6 % (39.6-50.0); HGB 8.7 g/dL (13.0-17.0); MCHC 31.5 g/dL (32.0-37.0); MCV 98.2 fL (80.0-97.0); Mean Platelet Volume 9.1 fL (9.5-12.2); Platelet Count 490 10*3/uL (140-440); RBC 2.81 10*6/uL (4.40-5.60); RDW 17.4 % (11.5-14.5); WBC 7.84 10*3/uL (4.50-10.00)
[2025-02-03] MEDS ORDERED: PROPOFOL 10 MG/ML 20 ML VIAL IV ONE (07:37)
[2025-02-03] MEDS: LACTATED RINGERS 1,000 ML IV ONE (07:39)
[2025-02-03 07:56] LABS: African American GFR (CKD) >90 (>60 ml/min/1.73 sqM); Anion Gap 4 mmol/L; Blood Urea Nitrogen 8 mg/dL (9-20); Calcium 8.7 mg/dL (8.4-10.2); Carbon Dioxide 29 mmol/L (22-30); Chloride 100 mmol/L (98-107); Glucose 102 mg/dL (74-99); Magnesium 2.1 mg/dL (1.6-2.3); Non-African American GFR(CKD) >90 (>60 ml/min/1.73 sqM); Potassium 4.4 mmol/L (3.5-5.1); Sodium 133 mmol/L (137-145)
--- NOTE | 2025-02-03 08:01 | P.PCN ---
Date of Procedure: 02/03/25 Preoperative Diagnosis: Rectal bleeding Postoperative Diagnosis: Internal hemorrhoids Procedure(s) Performed: Flexible sigmoidoscopy Anesthesia: MAC Surgeon: Dajuan Santo Pathology: none sent Condition: stable Disposition: floor Indications for Procedure: 74-year-old male status post CABG on 01/24/2025. He developed rectal bleeding and drop in hemoglobin after procedure. He is on anticoagulation with Plavix. Surgery consulted for evaluation of bright red bloody bowel movements. Plan for flexible sigmoidoscopy as patient is unable to be off of anticoagulation at this time. Risks, benefits and alternatives were provided to the patient. All questions answered. Operative Findings: Internal hemorrhoids Description of Procedure: The patient was brought to the endoscopy suite and placed in left lateral decubitus position and adequate sedation was achieved using conscious sedation. Digital rectal exam was performed and mild internal hemorrhoids were palpated. An endoscope was then placed in the rectum and advanced to approximately 65 cm. The prep was good. The colonoscope was then slowly withdrawn, examining for any mucosal abnormalities. The descending and sigmoid colon were visualized adequately. There were no large polyps. There was no active hemorrhage. No neoplastic lesions noted. Hemostasis was maintained. Retroflexion was performed in the rectum and internal hemorrhoid. Excess air was removed, the colonoscope withdrawn and the procedure terminated. The patient was then transferred to the recovery unit in stable condition. Complete colonoscopy should be performed when patient is cleared from Cardiologic standpoint.
--- NOTE | 2025-02-03 08:48 | P.PN ---
Subjective Progress Note Date: 02/03/25 01/17/2025 this is 74-year-old gentleman, follows with [facility] with past medical history significant for CAD, DE with stents of the circumflex and LAD, morbid obesity, hypertension, hyperlipidemia and multiple other medical issues brought into the ER via EMS from anabaptism yesterday secondary to complaints of chest pain. Patient reports during anabaptism he developed midsternal chest pain/tingling, nonradiating accompanied by increased shortness of breath and lightheadedness. Denies nausea, vomiting or diarrhea.denies abdominal pain.Patient responds slowly but appropriate;baseline as per PCP.Does not drive, uses the [facility] for transportation. Patient was initiated on IV heparin drip related to elevated troponins. EKG reported sinus tachycardia. Troponins 0.090, 3.400. D-dimer WNL, 0.26. Afebrile, normal WBC, hemoglobin 14.6, platelets 255, INR 1. 137, potassium 4 1, bicarb 24, creatinine 0.62, glucose 103, magnesium 1.6. proBNP 1550, TSH 3.740. Viral studies negative. Chest x-ray reported no acute cardiopulmonary disease/process. Currently denies chest pain, palpitations or shortness of breath.Maintaining O2 sats in the high 90s to 100% on room air. 01/18/2025 completed cardiac catheterization yesterday reported severe triple- vessel disease; proximal RCA 70 to 80% stenosis, mid RCA 60% stenosis,Ostium of the PLV 70% and PDA has 50 to 60% stenosis. Circumflex coronary artery 95% ostial stenosis. LAD 80 to 90% stenosis proximally in the ostial portion. LV function/echo pending. Evaluated by cardiothoracic surgery yesterday, felt to be high risk candidate. Brother Arvind at bedside, disclosed that patient had run out of medications, timeframe unknown. Currently denies chest pain, palpitations or shortness of breath. Telemetry sinus rhythm. 01/19/2025 anticoagulated on IV heparin drip. Maintained on beta-trixie, statin and aspirin. Echo results pending. Telemetry sinus rhythm .denies chest pain, palpitations or shortness of breath. Denies lightheadedness dizziness or focal deficits. Incentive spirometer up to 1999. 01/31/2025 status post CABG,POD#7, transferred out of ICU, currently on stepdown unit. Telemetry sinus rhythm. denies chest pain, palpitations or shortness of breath. Chest x-ray reporting pulmonary vascular congestion, layering right pleural effusion. Chest ultrasound reported right pleural effusion pocket size 12.3 cm, marked for thoracentesis.maintaining O2 sats in the high 90s to 100% on room air. Incentive spirometer 1500. Blood sugars controlled. General surgery consulted for bloody bowel movement this morning,hemoglobin stable, 10.1, platelets 441. Currently maintained on aspirin and Plavix. 02/01/2025 isolated event of 1 bloody stool yesterday, no further bleeding epis odes reported. Positive nonbloody bowel movement this morning. hemoglobin remains stable at 8.8, platelets 418. Renal function stable. Sodium 131. evaluated by general surgery and scheduled for sigmoidoscopy on , 02/03/2025. Sitting up in chair, denies chest pain, palpitations or shortness of breath, maintaining O2 sats in the high 90s on room air. Potential thoracentesis of recurrent right pleural effusion being considered. Afebrile, normal WBC. 02/02/2025 Plavix continues on hold, scheduled for flex sigmoidoscopy on , 02/03/2025 hemoglobin increased to 9.6. No further bleeding reported. Status post repeat right thoracentesis with 1450 mL turbid colored fluid drained. Tolerated procedure well. Postprocedure chest x-ray reported no evidence of pneumothorax, no significant pleural fluid remaining. Chest x-ray this morning reporting increased right lower lobe airspace opacities, correlate for developing atelectasis versus secondary to pleural effusion. Denies chest pain or shortness of breath. Maintaining O2 sats in the high 90s on room air. 02/03/2025 completed flex sigmoidoscopy, reporting internal hemorrhoids; no active hemorrhage no neoplastic lesions noted. General surgery recommending complete colonoscopy once cleared from cardiology standpoint. tolerated procedure well. No further bleeding. hemoglobin 8.7, platelets 490. Sodium 133, potassium 4.4, magnesium 2.1. bicarb 29 BUN 8 creatinine 0.62. Blood sugars controlled. Denies chest pain, palpitations or shortness of breath. Maintaining O2 sats in the high 90s on room air. Objective - Vital Signs Vital signs: Vital Signs Temp 97.9 F 02/02/25 20:00 Pulse 83 02/03/25 08:23 Resp 16 02/03/25 04:00 BP 98/59 02/03/25 04:00 Pulse Ox 98 02/03/25 04:00 FiO2 50 01/24/25 21:10 Intake & Output 02/02/25 02/03/25 02/03/25 18:59 06:59 18:59 Intake Total 840 100 Output Total 400 Balance 440 100 Weight 96.5 kg Intake: IV 100 Oral 840 Output: Urine 400 Other: Voiding Method Diaper Diaper # Voids 1 # Bowel Movements 1 ABP, PAP, CO, CI - Last Documented Arterial Blood Pressure 129/44 Pulmonary Artery Pressure 38/19 Cardiac Output 5.1 Cardiac Index 2.4 - Exam PHYSICAL EXAM: VITAL SIGNS: [Reviewed] GENERAL: Obese 74-year-old male, alert and oriented x 3, no acute distress. HEENT: Normocephalic, atraumatic, conjunctivae normal. eyes normal. MMM. NECK: Supple, no JVD. CARDIOVASCULAR: S1, S2 regular. No murmur RESPIRATION: Unlabored, equal air entry,CTA with bilateral bases diminished. ABDOMEN: Soft, nondistended, nontender . No guarding. no masses noted. +bs. LEGS: Positive edema. no cyanosis, no calf tenderness.+DPs. NERVOUS SYSTEM: Cranial N 2-12 grossly normal. No focal deficits. Strength and sensation grossly intact. Skin: Warm and dry, no rashes noted. - Labs CBC & Chem 7: 02/03/25 07:11 02/03/25 07:11 Labs: Abnormal Lab Results - Last 24 Hours (Table) 02/03/25 02/03/25 Range/Units 07:11 07:11 RBC 2.81 L (4.40-5.60) 10*6/uL Hgb 8.7 L (13.0-17.0) g/dL Hct 27.6 L (39.6-50.0) % MCV 98.2 H (80.0-97.0) fL MCHC 31.5 L (32.0-37.0) g/dL Plt Count 490 H (140-440) 10*3/uL MPV 9.1 L (9.5-12.2) fL Sodium 133 L (137-145) mmol/L BUN 8 L (9-20) mg/dL Creatinine 0.62 L (0.66-1.25) mg/dL Glucose 102 H (74-99) mg/dL Assessment and Plan Assessment: NSTEMI, status post cardiac catheterization reporting triple-vessel disease, status post CABG X3 Paroxysmal atrial fibrillation, postoperative, expected outcome. Right pleural effusion status post thoracentesis. Repeat thoracentesis 02/01/2025. Acute lower GI bleed, sigmoidoscopy pending. Transaminitis, resolving CAD with history of DE 2017, stenting of circumflex and LAD, current ran out of his medications-states unclear on timeframe. Last refill RX recorded at [facility] as October 2019. Developmental delay, at baseline per PCP and patient's brother Arvind. Follows with [facility]. Hypertension Hyperlipidemia Morbid obesity, BMI 33 Plan: Continue current medication resume ,monitoring and symptomatic treatment. Discharge planning in progress for IPR today as per CTS .maintain aggressive pulmonary toileting with incentive spirometer reinforced. General surgery recommending eventually a complete colonoscopy pending cardiac clearance. Cardiac catheterization verbally reported as triple-vessel disease with cardiothoracic surgery consulted. The impression and plan of care has been dictated as directed. : I performed a history and examination of this patient, discussed the same with the dictator. I agree with the dictator's note ,documented as a scribe. Any additional findings or plans will be noted.
[2025-02-03 09:47] VITALS: TEMP 97.7
[2025-02-03] MEDS: FUROSEMIDE 20 MG TAB PO SCH (09:56)
--- NOTE | 2025-02-03 10:28 | P.DS ---
Providers Date of admission: 01/18/25 08:59 Expected date of discharge: 02/03/25 Attending physician: Abhay Arana Consults: 01/16/25 13:51 Consult Physician Urgent Consulting Provider: Carlos Guillen Consult Reason/Comments: unstable angina/elevated troponin Do you want consulting provider notified?: Yes 01/17/25 10:44 Consult Physician Routine Consulting Provider: Abhay Arana Consult Reason/Comments: triple vessel CAD, CABG eval Do you want consulting provider notified?: Yes 01/17/25 12:37 Consult to Anesthesia Routine Consulting Provider: Anesthesia,Services Consult Reason/Comments: Cardiac Surgery Pre-Op 01/17/25 16:40 Consult Physician Routine Consulting Provider: Diya Byers Consult Reason/Comments: dizziness, delayed responses Do you want consulting provider notified?: Yes 01/20/25 14:26 Consult Physician Routine Consulting Provider: Demi Downey Consult Reason/Comments: pulm clearence; open heart on Friday Do you want consulting provider notified?: Already Contacted 01/24/25 14:05 Consult Physician Routine Consulting Provider: Tony Vaughan Consult Reason/Comments: internal medicine Do you want consulting provider notified?: Already Contacted 01/28/25 15:05 Consult Physician Routine Consulting Provider: Kamari Mclaughlin Consult Reason/Comments: Evaluation for inpatient rehab Do you want consulting provider notified?: Yes 01/31/25 11:50 Consult Physician Routine Consulting Provider: Dajuan Santo Consult Reason/Comments: ?GI bleed Do you want consulting provider notified?: Yes Primary care physician: Tony Vaughan Hospital Course: FINAL DIAGNOSIS: Multivessel coronary artery disease, non-ST elevated myocardial infarction this admission Acute blood loss anemia, expected given hemodilution and cardiopulmonary bypass pump Hypotension, somewhat expected due to vasoplegia as well as acute blood loss Right pleural effusion Postoperative paroxysmal atrial fibrillation, a known common occurrence after cardiac surgery Elevated transaminases, likely due to hypotension as well as medication induced, resolving Medical debility 1 episode of bloody stool, internal hemorrhoids History of coronary artery disease with myocardial infarction and previous stent placement to Cx and LAD in August 2017 Hypertension Hyperlipidemia, cholesterol 174, LDL 100.8, triglycerides 139 Obesity Lifetime non-smoker Developmental delay PRINCIPAL PROCEDURE: Coronary artery bypass graft x 3 with left internal mammary artery to the left anterior descending artery, left radial artery to the obtuse marginal artery, reverse saphenous vein graft to the posterior descending artery Endoscopic vein harvesting of the left greater saphenous vein Endoscopic harvesting of the left radial artery Ligation of the left atrial appendage with a 35 mm AtriClip Epiaortic ultrasound Intraoperative transesophageal echocardiogram Graft flow measurements using the Santo stim system Right thoracentesis performed by Dr. Osborne on 01/26, repeat right thoracentesis by Dr. Thomas 02/02/[address] Santo HISTORY OF PRESENT ILLNESS: This is a 74-year-old gentleman who follows outpatient with Dr. Vaughan for primary care. According to the patient he was at [facility] when he developed chest tightness, dizziness and shortness of breath. EMS was called and he was brought to [facility] emergency department at [facility] for evaluation. Laboratory results revealed elevated troponins and patient was ruled in for non-STEMI. The patient was admitted for evaluation and treatment with consultation placed to cardiology. Heart catheterization was recommended which was completed by Dr. Mccabe revealing severe three-vessel coronary artery disease. Transthoracic echocardiogram was completed revealing reduced left ventricular systolic function with EF 35%, apical/septal/inferior hypokinesis, mild mitral and aortic regurgitation. Consultation was placed to cardiothoracic surgery for revascularization recommendations. The patient was seen by Dr. Arana who recommended surgical revascularization. The usual perioperative course was discussed in detail with the patient and his brother, all risks and benefits were explained, all questions were answered, and consent was obtained to proceed with surgery. The patient was kept inpatient due to the nature of his disease process. HOSPITAL COURSE: The patient was brought to the preoperative area 01/24/25, prepared in the usual fashion, and subsequently taken to the operating room where Dr. Arana performed three-vessel CABG. Upon completion of surgery the patient was transferred to the cardiovascular intensive care unit where he was recovered and monitored hemodynamically. She was extubated, all lines, tubes, and drips were discontinued when appropriate. The patient did experience hypotension and acute blood loss anemia requiring transfusion, paroxysmal atrial fibrillation treated with amiodarone and beta-trixie therapy, transaminitis which was resolving at discharge, right-sided pleural effusion with thoracentesis x 2, and 1 episode of bloody stool which was felt to be from hemorrhoids with no further bloody stools. He was transferred to [facility] cardiac stepdown unit for further monitoring and rehabilitation. His oxygen was titrated down, he continued to work with physical and occupational therapy, he was tolerating oral diet, his pain was controlled, and he was ready to be discharged to inpatient rehab for further strength and mobility training along with daily physician visits on postoperative day #10. He received written and verbal instruction regarding his medications, activity restrictions, signs and symptoms requiring physician notification, and follow-up appointments. His [facility] java solutions architect was called and updated. Patient Condition at Discharge: Stable Plan - Discharge Summary Discharge Rx Participant: Yes New Discharge Prescriptions: New Ipratropium-Albuterol Nebulize [Duoneb 0.5 mg-3 mg/3 ml Soln] 3 ml INHALATION RT-QID each Atorvastatin [Lipitor] 40 mg PO HS tab Clopidogrel [Plavix] 75 mg PO DAILY tab Midodrine [ProAmatine] 10 mg PO AC-BID tab Acetaminophen Tab [Tylenol] 650 mg PO Q4HR PRN tab PRN Reason: Fever And/ Or Pain Aspirin 81 mg PO DAILY tab Benzocaine/Menthol Lozeng [Cepacol lozenge] 1 each MUCOUS MEM Q2H PRN lozenge PRN Reason: Sore Throat Ipratropium-Albuterol Nebulize [Duoneb 0.5 mg-3 mg/3 ml Soln] 3 ml INHALATION RT-Q2H PRN each PRN Reason: Shortness Of Breath Or Wheezing Folic Acid 1 mg PO DAILY tab Heparin Sodium,Porcine (1 ml) [Heparin Sodium] 5,000 unit SQ Q8HR each Furosemide [Lasix] 20 mg PO DAILY tab Metoprolol Tartrate [Lopressor] 25 mg PO BID tab Pantoprazole [Protonix] 40 mg PO AC-BRKFST tab Sennosides-Docusate Sodium [Senokot-S] 2 each PO HS PRN tab PRN Reason: Constipation Cyanocobalamin [Vitamin B-12] 500 mcg PO DAILY tab Discharge Medication List Acetaminophen Tab [Tylenol] 650 mg PO Q4HR PRN tab 02/03/25 [Rx] Aspirin 81 mg PO DAILY tab 02/03/25 [Rx] Atorvastatin [Lipitor] 40 mg PO HS tab 02/03/25 [Rx] Benzocaine/Menthol Lozeng [Cepacol lozenge] 1 each MUCOUS MEM Q2H PRN lozenge 02/03/25 [Rx] Clopidogrel [Plavix] 75 mg PO DAILY tab 02/03/25 [Rx] Cyanocobalamin [Vitamin B-12] 500 mcg PO DAILY tab 02/03/25 [Rx] Folic Acid 1 mg PO DAILY tab 02/03/25 [Rx] Furosemide [Lasix] 20 mg PO DAILY tab 02/03/25 [Rx] Heparin Sodium,Porcine (1 ml) [Heparin Sodium] 5,000 unit SQ Q8HR each 02/03/25 [Rx] Ipratropium-Albuterol Nebulize [Duoneb 0.5 mg-3 mg/3 ml Soln] 3 ml INHALATION RT-Q2H PRN each 02/03/25 [Rx] Ipratropium-Albuterol Nebulize [Duoneb 0.5 mg-3 mg/3 ml Soln] 3 ml INHALATION RT-QID each 02/03/25 [Rx] Metoprolol Tartrate [Lopressor] 25 mg PO BID tab 02/03/25 [Rx] Midodrine [ProAmatine] 10 mg PO AC-BID tab 02/03/25 [Rx] Pantoprazole [Protonix] 40 mg PO AC-BRKFST tab 02/03/25 [Rx] Sennosides-Docusate Sodium [Senokot-S] 2 each PO HS PRN tab 02/03/25 [Rx] Follow up Appointment(s)/Referral(s): Demi Downey MD [STAFF PHYSICIAN] - 1 Week (Call for appointment upon discharge from [facility]) [facility], [NON-STAFF] - As Needed (May follow after discharge from inpatient rehab) [facility],Cardiac [NON-STAFF] - 4 Weeks (You will receive a phone call in approximately 4-6 weeks for evaluation for cardiac rehab) Tony Vaughan DO [Primary Care Provider] - 1-2 Days (Call for appointment upon discharge from [facility]) Abhay Arana MD [STAFF PHYSICIAN] - 03/18/25 9:30 am Zay Mccabe MD [STAFF PHYSICIAN] - 1 Week (Call for appointment upon discharge from [facility]) Ambulatory/Diagnostic Orders: Complete Blood Count w/diff [LAB.AMB] Time Frame: 3 Days, Location: None Selected Comprehensive Metabolic Panel [LAB.AMB] Time Frame: 3 Days, Location: None Selected Activity/Diet/Wound Care/Special Instructions: Please call [facility] community case manager, Mckin[place], on discharge in order to coordinate care: #[phone] DISCHARGE INSTRUCTIONS: 1. No driving for 4 weeks, or until physician gives their ok. 2. The patient should sleep in their own bed, no medical bed needed. 3. Stairs are not an issue. If the bedroom is upstairs, it is advised that the patient go up at night and down in the morning for the first week. Go slowly, using handrail and take 1 step at a time. 4. SERENITY hose are to be worn for 30 days post surgery or until physician discontinues. 5. Heart hugger is to be worn 100% of the time until physician discontinues.(except when showering) 6. No lifting, pushing, or pulling more than 10 pounds for 12 weeks. The physician will advise of any restriction changes. 7. The patient is expected to continue the prescribed walking program. 8. Continue pain control per as needed orders. 9. Continue with incentive spirometry and splinting/heart hugger until otherwise directed by the physician. 10. Must shower daily using liquid antibacterial soap 11. Routine sternal incision care. No powders, lotions, ointments on incisions. No dressings are necessary on incisions unless they are draining. Dermabond tape is to remain on sternal incision until surgeon follow-up. 12. Please call surgeon/ANALYTICAL STRATEGIST for temp greater than 101 F or purulent drainage from incisions. 13. You should weigh yourself daily, record and bring log with you to follow up appointments. 14. All prescriptions given by surgeon for 30 days. Refills need to be filled through adolescent psychiatrist/primary care physician. 15. A Red armband has been placed on the patient. It should be worn for 30 days post discharge from surgery and will be removed by the cardiac surgeons. If an ER visit is necessary, please make sure the number on the Red armband is called before going to ER. 16. You have been referred to and are expected to begin Cardiac Rehab in approximately 4-6 weeks. 17. Quitting smoking is the most important step you can take to improve your health. For additional information and assistance to quit smoking, please call the [place] tobacco quit line (1-290-TJYM-NOW/ ) or online: [email or web address] HOME HEALTH SERVICES TO PROVIDE: RN SKILLED HOME CARE SERVICES FOR POST-OP SURGICAL PATIENTS WITH THE FOLLOWING: Coronary Artery Bypass Surgery (CABG), Mitral Valve Replacement/Repair ( MVR), Aortic Valve Replacement/Repair (AVR) RN TO CONTINUE EDUCATION FROM ``ROAD TO A HEALTH HEART PATIENT EDUCATION MANUAL (GIVEN TO PATIENT IN THE HOSPITAL) MEDICATION RECONCILIATION WITH EDUCATION NEEDED ON FIRST HOME VISIT EMPHASIZE IMPORTANCE OF WEARING BREAST SUPPORT/HEART HUGGER ENCOURAGE USE OF INCENTIVE SPIROMETER 10 X EVERY HOUR WHILE AWAKE ENCOURAGE UTILIZATION OF LOWER EXTREMITY COMPRESSION STOCKINGS/SERENITY HOSE and ELEVATE LEGS ABOVE LEVEL OF HEART WHILE AT REST. ENCOURAGE AMBULATION 3-5x/day INCREASING TOLERATES, WHILE AVOIDING EXTREMES IN TEMPERATURE FREQUENCY: RN TO OPEN THE PATIENT WITHIN 24 HOURS OF DISCHARGE FROM THE HOSPITAL WITH TELEHEALTH INSTALLED AT [facility], RN TO VISIT 2-3 X A WEEK FOR 4 WEEKS ESTABLISHED BY PATIENT NEEDS. LABORATORY: CBC, CMP TO BE DRAWN ON THE THIRD DAY HOME, (RAN STAT) FAX RESULTS TO [phone]. TELEHEALTH PARAMETERS: WEIGHT: NOTIFY MD OF WEIGHT GAIN OF 2 LBS IN 24 HOURS OR 5 LBS IN ONE WEEK HR: NOTIFY MD OF HR <55 BPM OR HR>100 BPM BP: NOTIFY MD IF BP <90/55 OR BP>140/100 O2 SAT: NOTIFY MD IF PO2<93% ON ROOM AIR SEND TELEHEALTH REPORT TO BIOMED TECH AND CARDIOVASCULAR SURGEON THE FIRST WEEK OF CARE AND THEN BI-WEEKLY. PLEASE ADDITIONALLY COMMUNICATE ANY ABNORMALS AND NEW FINDINGS TO THE SURGEONS OFFICE. Discharge Disposition: DC/TRNS INTERMEDIATE CARE FAC
[2025-02-03 11:33] LABS: Glucose,Whole Blood 135 mg/dL (70-110)
--- NOTE | 2025-02-03 11:47 | P.PN ---
Subjective HISTORY OF PRESENT ILLNESS: This is a 74-year-old male with a past medical history significant for coronary artery disease with previous stenting of the circumflex of the LAD, hypertension, and hyperlipidemia. Patient used to follow in the office with Dr. Guillen but has not been seen since October 2019. We have been asked to see the patient in consultation for chest pain. Patient examined at the bedside in the emergency room. Patient states that he was at [facility] yesterday when he began to have chest discomfort. He states the pain was in the middle of the chest. He denied any radiation of the pain. He also reported having some dizziness. The patient was found to have elevated troponins and was started on IV heparin. At the time of examination he denies any chest pain or pressure. Bedside telemetry reveals sinus mechanism. DIAGNOSTICS: - EKG reveals sinus tachycardia with no signs of acute ischemia. - Chest xray negative for acute process - Laboratory data: WBC 6.7. Hemoglobin 13.4. Platelet count 217. D-dimer 0.26. Sodium 137. Potassium 4.1. BUN 11. Creatinine 0.62. Troponin 0.090. 3.400. proBNP 1550. TSH 3.740. - Current home cardiac medications include none. - Most recent echocardiogram obtained in July 2017 revealing ejection fraction 60 to 65% with mild TR - Cardiac catheterization history: July 2017 with stenting of the proximal left circumflex. - Repeat cardiac catheterization performed in August 2017 with stenting of the LAD 01/18/2025 Patient is status post cardiac catheterization yesterday with Dr. Mccabe revealing RCA stenosis at its worst 70 to 80%. There is mid RCA lesion of 60% and divides into PDA and PLV. Ostium of the PLV has 70% stenosis and PDA has 50 to 60% stenosis. Left main artery appears calcified. There is distal left main plaque. Circumflex coronary artery reveals 95% ostial stenosis. LAD has 80 to 90% stenosis proximally in the ostial portion. CT surgery was consulted for evaluation. Patient examined this morning at the bedside. Patient currently denies chest pain or pressure. He denies shortness of breath. Vital signs are stable. Telemetry reveals sinus mechanism. Patient's brother is at the bedside. Patient's brother states that patient is at his baseline. He states that the patient is " somewhat handicapped" and " takes a long time to process what people are saying". He states that the patient has lived on his own independently for many years and takes care of himself and makes all his own medical decisions. He does state that his brother takes the bus frequently and does not have a [employer] driver's license as he never driven. He states he is not able to drive because his reaction times are too slow and cannot make sudden decisions. 01/19/2025 Patient examined this morning at bedside. Patient currently denies chest pain or pressure. He denies shortness of breath. Denies dizziness or lightheadedness. Vital signs are stable. He remains on IV heparin. 01/20/2025 Patient examined this morning at the bedside. Patient currently denies chest pain or pressure. He denies shortness of breath. Vital signs are stable. Echocardiogram completed revealing ejection fraction 35% with apical septal and inferior hypokinesis, trace to mild MR, mild aortic stenosis, mild aortic regurgitation. 01/21/2025 Patient examined this morning at bedside. Patient currently denies chest pain or pressure. He denies shortness of breath. He reports nausea this morning with a small episode of emesis. Vital signs are stable. Telemetry Veals sinus mechanism. 01/22/2025 Patient examined this morning at bedside. He denies chest pain or pressure. Denies shortness of breath. Vital signs are stable. 01/23/2025 Patient examined this morning at bedside. Patient currently denies chest pain or pressure. He denies shortness of breath. Vital signs are stable. 01/31/2025 Patient is status post CABG x 3 vessel. Postop day #7. Patient examined this morning. He is sitting up in the chair. Patient currently denies chest pain or pressure. He denies shortness of breath. Telemetry reveals sinus mechanism. Patient is using his incentive spirometer. Blood pressure is stable. 02/01/2025 Patient examined this morning at the bedside. He is sitting up in the chair. Patient currently denies chest pain or pressure. He denies shortness of breath. He has been evaluated by general surgery for an episode of bloody stools yesterday and is scheduled for sigmoidoscopy on 02/03/[address] Santo. 02/02/2025 Patient examined this morning at the bedside. Patient currently denies chest pain or pressure. He denies shortness of breath. Patient underwent right-sided thoracentesis yesterday with removal of 1450 cc of fluid. Vital signs are stable. 02/03/2025 Patient underwent flexible sigmoidoscopy today with Dr. Santo revealing internal hemorrhoids. Patient examined this morning at bedside. He denies chest pain or pressure. Denies shortness of breath. Denies dizziness or lightheadedness. Vital signs are stable. Telemetry reveals sinus mechanism. PHYSICAL EXAM: VITAL SIGNS: Reviewed. GENERAL: Well-developed in no acute distress. HEENT: Head is normocephalic. Pupils are equal, round. Sclerae anicteric. Mucous membranes of the mouth are moist. Neck supple. No JVD or thyromegaly LUNGS: Respirations even and unlabored. Lungs essentially clear to auscultation bilaterally, right-sided diminished. HEART: Regular rate and rhythm. S1 and S2 heard. ABDOMEN: Soft. Nondistended. Nontender. EXTREMITIES: Normal range of motion. No clubbing or cyanosis. Peripheral pulses intact. Bilateral lower extremity edema noted. NEUROLOGIC: Awake and alert. Oriented x 3. ASSESSMENT: Non-STEMI, status post cardiac catheterization revealing triple-vessel disease, status post three-vessel CABG Postoperative paroxysmal atrial fibrillation Transaminitis Right pleural effusion status post thoracentesis 02/02/2024 Coronary artery disease with previous stenting of circumflex and LAD, 2017 Hypertension Hyperlipidemia Obesity: BMI 33.1 Developmental delay, at baseline per patients brother PLAN: Continue postoperative management per CT surgery Continue aspirin, atorvastatin, Plavix, and metoprolol Patient is stable for discharge to inpatient rehab today from a cardiac standpoint Nurse practitioner note has been reviewed by physician. Signing provider agrees with the documented findings, assessment, and plan of care documented by IRRIGATION SYSTEM INSTALLER as a scribe. Objective - Vital Signs Vital signs: Vital Signs Temp 97.7 F 02/03/25 08:07 Pulse 88 02/03/25 09:54 Resp 16 02/03/25 09:54 BP 99/61 02/03/25 09:54 Pulse Ox 98 02/03/25 09:54 FiO2 50 01/24/25 21:10 Intake & Output 02/02/25 02/03/25 02/03/25 18:59 06:59 18:59 Intake Total 840 100 Output Total 400 Balance 440 100 Weight 96.5 kg Intake: IV 100 Oral 840 Output: Urine 400 Other: Voiding Method Diaper Diaper Diaper # Voids 1 # Bowel Movements 1 ABP, PAP, CO, CI - Last Documented Arterial Blood Pressure 129/44 Pulmonary Artery Pressure 38/19 Cardiac Output 5.1 Cardiac Index 2.4 - Labs CBC & Chem 7: 02/03/25 07:11 02/03/25 07:11 Labs: Abnormal Lab Results - Last 24 Hours (Table) 02/03/25 02/03/25 02/03/25 Range/Units 07:11 07:11 11:32 RBC 2.81 L (4.40-5.60) 10*6/uL Hgb 8.7 L (13.0-17.0) g/dL Hct 27.6 L (39.6-50.0) % MCV 98.2 H (80.0-97.0) fL MCHC 31.5 L (32.0-37.0) g/dL Plt Count 490 H (140-440) 10*3/uL MPV 9.1 L (9.5-12.2) fL Sodium 133 L (137-145) mmol/L BUN 8 L (9-20) mg/dL Creatinine 0.62 L (0.66-1.25) mg/dL Glucose 102 H (74-99) mg/dL POC Glucose (mg/dL) 135 H (70-110) mg/dL
[2025-02-03 11:52] VITALS: BP 96/59; PULSE 82
--- NOTE | 2025-02-03 12:46 | P.PN ---
Subjective Progress Note Date: 02/03/25 On today's evaluation of 01/31/2025, the patient is being seen for a follow-up. The patient has a small to moderate-sized right-sided pleural effusion based on the chest x-ray that was done on 01/31/2025. Ultrasound of the chest was also done and it showed a 4.3 cm pocket in the right lung. Chest tube was removed and the patient is having some leakage from the left sided chest tube stoma. The patient is currently postop day #7. The patient remains on aspirin and Plavix. He did have a bloody bowel movement for which a general surgical consultation was obtained. Hemoglobin remained stable. Using the incentive spirometer, pulling approximately 1500 on his incentive spirometer. The patient is currently on a combination of aspirin and Plavix. The patient also metoprolol 25 mg p.o. twice a day. The patient continues to have edema lower extremities bilaterally. He is slow to progress. The hemoglobin today is at 10.1, platelet count of 441, sodium level is 132 with a potassium level of 4.1, BUN is 14 with a creatinine of 0.6. On 02/03/2025, the patient is being seen for a follow-up. Sitting up in a chair and is currently on room air oxygen. No significant respiratory distress. [facility] surgery requested us to do a thoracentesis with the patient effusion. He continues to have edema lower extremities bilaterally. Repeat chest x-ray from today shows pulm vessel congestion and cardiomegaly and layering right- sided pleural effusion. The patient's white cell count is at 9.8 with a hemoglobin of 8.8. The patient did have a episode of GI bleed yesterday and no further episodes were noted over the past 24 hours. BUN is 11 with a creatinine of 0.6 and a sodium levels at 131. Continues to have lower extremity edema. On 02/02/2025, the patient is being seen for a follow-up. Patient is doing well. His postthoracentesis and a total of 1.4 L of pleural fluid was aspirated from the right lung. The patient is not having any respite difficulties. Follow-up chest x-ray shows some atelectatic change in left lung base. No recurrent right-sided pleural effusion. The patient continues to use the incentive spirometer. Sitting up in a chair. Continues to have lower extremity edema. No evidence of any GI bleeding for now. Looking for an inpatient rehabilitation. Meanwhile, the white cell count today is at 8.7 with a hemoglobin 9.6 and a platelet count of 517. Sodium levels at 120potassium level 4.3, chloride is 98 with a bicarb of 24, BUN of 14 with a creatinine of 0.6. No other significant events overnight. Fluid balance is -836 cc over the past 24 hours. The patient has no new complaints. On 02/03/2025, the patient is resting comfortably in bed on room air oxygen. Denies having any specific complaints. There is improvement in the lower extremity edema. No chest pain. Surgical wound site is dry clean and intact. Cardiac rhythm is sinus. The white cell count is at 7.8 with a hemoglobin of 8.4 and a platelet count of 490. Sodium levels at 133, BUN is at 8 with a creatinine of 0.6. Remains on aspirin and Plavix. Remains on metoprolol 25 mg p.o. twice a day. Remains on Lasix 20 mg p.o. daily. Objective - Vital Signs Vital signs: Vital Signs Temp 97.9 F 02/02/25 20:00 Pulse 83 02/03/25 08:23 Resp 16 02/03/25 04:00 BP 98/59 02/03/25 04:00 Pulse Ox 98 02/03/25 04:00 FiO2 50 01/24/25 21:10 Intake & Output 02/02/25 02/03/25 02/03/25 18:59 06:59 18:59 Intake Total 840 100 Output Total 400 Balance 440 100 Weight 96.5 kg Intake: IV 100 Oral 840 Output: Urine 400 Other: Voiding Method Diaper Diaper # Voids 1 # Bowel Movements 1 ABP, PAP, CO, CI - Last Documented Arterial Blood Pressure 129/44 Pulmonary Artery Pressure 38/19 Cardiac Output 5.1 Cardiac Index 2.4 - Exam CONSTITUTIONAL: Appears comfortable, cooperative, no acute distress RESPIRATORY: Lungs sounds diminished in the bases bilaterally. Respirations even, nonlabored. Currently on room air with oxygen saturation 96%. Able to achieve 1250 mL on incentive spirometry. Strong cough. CARDIOVASCULAR: S1, S2 present. Regular rate and rhythm, sinus rhythm on telemetry. Sternum stable. Palpable peripheral pulses bilaterally. General ized edema present. No calf pain or tenderness noted. Heart hugger, antiembolism stockings, SCDs present. GASTROINTESTINAL: Abdomen soft, nontender, nondistended. Active bowel sounds present 4 quadrants. Tolerating diet. Positive bowel movement 02/02 GENITOURINARY: Patient voiding 1200 mL in the last 24 hours plus some episodes of incontinence INTEGUMENTARY: Skin is warm and dry with evidence of good perfusion. Anterior chest incision well approximated. Left lower extremity EVH site well approximated without redness or drainage. NEUROLOGIC: Cranial nerves II through XII intact MUSKULOSKELETAL: Able to move all extremities, strength equal bilaterally, gait slow with walker PSYCHIATRIC: Alert and oriented to person place and time, slow to respond per his baseline INVASIVE LINES AND TUBES: A/V epicardial pacemaker wires present, grounded - Labs CBC & Chem 7: 02/03/25 07:11 02/03/25 07:11 Labs: Abnormal Lab Results - Last 24 Hours (Table) 02/03/25 02/03/25 Range/Units 07:11 07:11 RBC 2.81 L (4.40-5.60) 10*6/uL Hgb 8.7 L (13.0-17.0) g/dL Hct 27.6 L (39.6-50.0) % MCV 98.2 H (80.0-97.0) fL MCHC 31.5 L (32.0-37.0) g/dL Plt Count 490 H (140-440) 10*3/uL MPV 9.1 L (9.5-12.2) fL Sodium 133 L (137-145) mmol/L BUN 8 L (9-20) mg/dL Creatinine 0.62 L (0.66-1.25) mg/dL Glucose 102 H (74-99) mg/dL Assessment and Plan Plan: Multivessel coronary artery disease, non-ST elevated myocardial infarction this admission status post three-vessel CABG, the patient is postop day # 10 Postthoracotomy, extubated and the patient is currently on room air oxygen Right-sided pleural effusion, moderate size postthoracentesis with fluid reaccumulation. The patient underwent a second thoracentesis on 02/01/2025 with removal of 1.4 L of pleural fluid without any complications. Lower GI bleed, hemoglobin is stable and the patient will be seen by general surgery, currently Nexium is stable and the patient has not had any further episode of GI bleed. The hemoglobin remained stable and the patient has no evidence of any ongoing GI bleeding. Sigmoidoscopy was done and the patient has hemorrhoids. Acute blood loss anemia, expected given hemodilution and cardiopulmonary bypass pump Postoperative paroxysmal atrial fibrillation, a known common occurrence after cardiac surgery. Elevated transaminases, likely due to hypotension as well as medication induced, resolving Lower extremity edema History of coronary artery disease with myocardial infarction and previous stent placement to Cx and LAD in August 2017 Hypertension Hyperlipidemia, cholesterol 174, LDL 100.8, triglycerides 139 Obesity Lifetime non-smoker Developmental delay Chronic medical debility secondary above-mentioned comorbidities Plan: Thoracentes Continue using incentive spirometer Aggressive pulmonary toileting Patient is currently on room air oxygen Continue aspirin and Plavix Continue metoprolol 25 mg p.o. twice a day Monitor LFTs and start statins once the LFTs normalize No GI bleeding Continue oral Lasix Monitor lower extremity edema which is essentially improving Hemoglobin remained stable Increase activity as tolerated. PT/OT/cardiac rehab following GI/DVT prophylaxis Continue to monitor strict accurate intake and output Insulin management per internal medicine. Patient is not diabetic, preoperative hemoglobin A1c 5.4% Pain control per current medication regimen. No narcotics PM&R physicians consulted for hopeful IPR at discharge
[2025-02-03] MEDS ORDERED: MIDODRINE 5 MG TAB PO SCH (17:30)
--- NOTE | 2025-02-07 10:17 | CDI ---
Documentation Clarification Form Date: 02/07/25 From: Katia Peterson Admit Date: 01/18/2025 08:59:00 AM Patient Name: Daniel Pyle Visit Number: [id number] Discharge Date: 02/03/2025 11:52:00 AM ATTENTION: The Clinical Documentation Specialists (CDI) and [facility] Coding Staff appreciate your assistance in clarifying documentation. Please respond to the clarification below the line at the bottom and electronically sign. The CDI & [facility] Coding staff will review the response and follow-up if needed. Please note: Queries are made part of the Legal Health Record. If you have any questions, please contact the author of this message via ITS. Doctor/Provider: Harry Osborne, Your patient has the documented diagnosis of unspecified CHF in the 01/26 progress note. Additional; information regarding the type and acuity of CHF is requested. History/Risk Factors: Hx of PA, developmental delay, HLD, previous cardiac stenting, HTN, morbid obesity-BMI 33 Clinical Indicators: Presented with SOB, dizziness and lightheadedness. Developed chest pain at [facility]. NSTEMI identified. VS/Pulse OX: 01/13-T 97.9, P 115, R 20, BP 140/86, o2 SAT 100 RA 01/16 BNP: 1550 01/18 Echocardiogram Results: Transthoracic echocardiogram was completed revealingreducedleft ventricular systolic function with EF 35%, apical/septal/inferior hypokinesis, mild mitral and aortic regurgitation. 01/26 Chest X Ray: Cardiomegalywith small rightpleural effusionand bilateraledema remains present. Correlate forCHFexacerbation/fluid overloadstate. Treatment: IV Lasix 20 mg 01/23 and subsequent administration, two right thoracentesis performed In your professional opinion, can you please clarify the [acuity and type] of CHF if known? [ X ] Acute Systolic Heart Failure (reduced EF) [ ] Volume Overload, not related to CHF [ ] Pleural effusion, not related to CHF [ ] Other, please specify [ ] Unable to determine MTDD
== END 2025-02-03 11:52 | DRG 233 ==
LOC: EC 11:03 → 6NMEDSUR 13:31 → 3SCARD 17:43 → OBSVTOIN 01-18 08:59 → 2SICU 01-24 07:17 → 3SCARD 01-30 13:08
PROVIDERS: ADMIT Surgery; ATTEND Surgery
PROC: B2111ZZ Fluoroscopy of Multiple Coronary Arteries using Low Osmolar Contrast (ICD-10-PCS; 2025-01-17)
PROC: 4A023N7 Measurement of Cardiac Sampling and Pressure, Left Heart, Percutaneous Approach (ICD-10-PCS; 2025-01-17)
PROC: B24BZZ4 Ultrasonography of Heart with Aorta, Transesophageal (ICD-10-PCS; 2025-01-17)
PROC: 5A1221Z Performance of Cardiac Output, Continuous (ICD-10-PCS; principal; 2025-01-24 08:00)
PROC: 021009W Bypass Coronary Artery, One Artery from Aorta with Autologous Venous Tissue, Open Approach (ICD-10-PCS; principal; 2025-01-24 08:00)
PROC: 03BC4ZZ Excision of Left Radial Artery, Percutaneous Endoscopic Approach (ICD-10-PCS; principal; 2025-01-24 08:00)
PROC: 02100Z9 Bypass Coronary Artery, One Artery from Left Internal Mammary, Open Approach (ICD-10-PCS; principal; 2025-01-24 08:00)
PROC: 06BQ4ZZ Excision of Left Saphenous Vein, Percutaneous Endoscopic Approach (ICD-10-PCS; principal; 2025-01-24 08:00)
PROC: 02L70CK Occlusion of Left Atrial Appendage with Extraluminal Device, Open Approach (ICD-10-PCS; principal; 2025-01-24 08:00)
PROC: 4A0305C Measurement of Arterial Flow, Coronary, Open Approach (ICD-10-PCS; principal; 2025-01-24 08:00)
PROC: 02100AW Bypass Coronary Artery, One Artery from Aorta with Autologous Arterial Tissue, Open Approach (ICD-10-PCS; principal; 2025-01-24 08:00)
PROC: 3E043XZ Introduction of Vasopressor into Central Vein, Percutaneous Approach (ICD-10-PCS; 2025-01-24 08:00)
PROC: 30233N1 Transfusion of Nonautologous Red Blood Cells into Peripheral Vein, Percutaneous Approach (ICD-10-PCS; 2025-01-25)
PROC: 0W993ZZ Drainage of Right Pleural Cavity, Percutaneous Approach (ICD-10-PCS; 2025-01-26)
PROC: 0W993ZZ Drainage of Right Pleural Cavity, Percutaneous Approach (ICD-10-PCS; 2025-02-01)
PROC: 0DJD8ZZ Inspection of Lower Intestinal Tract, Via Natural or Artificial Opening Endoscopic (ICD-10-PCS; 2025-02-03)
DX: I21.4 Non-ST elevation (NSTEMI) myocardial infarction (principal); I50.21 Acute systolic (congestive) heart failure; Z68.33 Body mass index [BMI] 33.0-33.9, adult; E66.01 Morbid (severe) obesity due to excess calories; I70.0 Atherosclerosis of aorta; D62 Acute posthemorrhagic anemia; J98.11 Atelectasis; I25.110 Atherosclerotic heart disease of native coronary artery with unstable angina pectoris; I48.0 Paroxysmal atrial fibrillation; I95.9 Hypotension, unspecified; I25.84 Coronary atherosclerosis due to calcified coronary lesion; E78.5 Hyperlipidemia, unspecified; K64.8 Other hemorrhoids; R26.9 Unspecified abnormalities of gait and mobility; R62.50 Unspecified lack of expected normal physiological development in childhood; R74.01 Elevation of levels of liver transaminase levels; R32 Unspecified urinary incontinence; Z78.1 Physical restraint status; I25.2 Old myocardial infarction; Z95.5 Presence of coronary angioplasty implant and graft; Z71.3 Dietary counseling and surveillance
CPT/HCPCS: 36415; 45330; 71045; 71046; 71250; 76604; 80048; 80053; 80061; 80074; 81001; 81003; 82330; 82607; 82746; 82805; 83036; 83605; 83735; 83880; 84132; 84145; 84443; 84484; 85025; 85027; 85379; 85384; 85610; 85730; 86850; 86891; 86900; 86901; 86920; 87040; 87070; 87086; 87636; 93005; 93306; 93308; 93454; 93880; 93970; 94002; 94150; 94640; 94760; 96365; 96366; 96368; 99291